=== PATIENT | male | born 1950 | race Caucasian/White ===

== ENCOUNTER 2022-04-24 08:33 | Outpatient (CLI) | payer MEDICARE, OTHER, SELFPAY ==
[2022-04-24 17:57] LABS: Cholesterol* 147 mg/dL (90-199); HDL Cholesterol* 26 mg/dL (>=40); LDL Cholesterol Calculated 56 mg/dL (<100); Triglycerides* 326 mg/dL (40-149)
== END 2022-04-24 08:34 | disposition home or self-care (01) ==
PROVIDERS: PCP Family Medicine; Visit Provider Family Medicine
DX: I71.9 Aortic aneurysm of unspecified site, without rupture (principal); I10 Essential (primary) hypertension
CPT/HCPCS: 80061

== ENCOUNTER 2023-03-06 10:31 | Outpatient (CLI) | payer MEDICARE, OTHER, SELFPAY ==
--- NOTE | 2023-03-06 11:00 | CRLHL7_ITS ---
For Patients: As a result of the Century Cures Act, medical imaging exams and procedure reports are released immediately into your electronic medical record. You may view this report before your referring provider. If you have questions, please contact your health care provider. Indication: CERVICALGIA Technique: Postcontrast CT neck. 100 cc Isovue 370 intravenous contrast. Please note that all CT scans at this facility use dose modulation, iterative reconstruction, and/or weight-based dosing when appropriate to reduce radiation dose to as low as reasonably achievable. Comparison: None Findings: No cervical adenopathy or soft tissue mass. Salivary glands are normal. Normal epiglottis, vallecula and piriform sinuses. No fracture is present. Near complete bridging osteophyte formation at C5-6. Anterior spurring also at C6-7 and prominent spurring located at T1-2. Intact odontoid. Sella turcica normal. Clear visualized sinuses. Normal visualized brain parenchyma and orbits. Scarring noted in both lung apices. Thyroid normal. Impression: Discogenic spurring lower thoracic spine. No fracture. No soft tissue mass or adenopathy. Please note that all CT scans at this facility use dose modulation, iterative reconstruction, and/or weight-based dosing when appropriate to reduce radiation dose to as low as reasonably achievable. Dictated by Giovany Levy MD @ 03/06/2023 12:56:49 PM (Electronically Signed)
== END 2023-03-06 10:32 | disposition home or self-care (01) ==
LOC: CT 10:33
PROVIDERS: PCP Family Medicine; Visit Provider Otolaryngology
DX: M54.2 Cervicalgia (principal)
CPT/HCPCS: 70491; Q9967

== ENCOUNTER 2023-04-20 19:23 | Outpatient (CLI) | payer MEDICARE, OTHER, SELFPAY ==
--- NOTE | 2023-04-28 12:57 | W.PM.SLEEP ---
Sleep Study Details Details Interpreting Provider: Aleah Date of Sleep Study: 04/20/23 Sleep Study Details: STUDY TYPE:? Home unattended ? BMI:? 32.3 ORDERING PROVIDER:? Aleah INDICATION:? Concerns about sleep apnea ? SLEEP SUMMARY:? 405 minutes monitor RESPIRATORY SUMMARY:? AHI 19, supine 28.5, left lateral 18.4, right lateral 16.9 Low oxygen 66 7.1% of study oxygen less than 90% Snoring 16.6% PERIODIC LIMB MOVEMENTS OF SLEEP:? Not recorded during home study CARDIAC:? Range 52-96, mean 63.7 beats per minute IMPRESSION:? Moderate obstructive sleep apnea with supine position dependency and significant desaturations RECOMMENDATION: AutoSet CPAP pressure 4-17.
== END 2023-04-20 19:24 | disposition home or self-care (01) ==
LOC: SLEEP 19:24
PROVIDERS: PCP Family Medicine; Visit Provider Otolaryngology
DX: G47.33 Obstructive sleep apnea (adult) (pediatric) (principal)
CPT/HCPCS: 95806

== ENCOUNTER 2024-01-11 10:51 | Outpatient (CLI) | payer MEDICARE, OTHER, SELFPAY ==
--- OUTSIDE RECORDS SUMMARY | 2024-01-11 10:54 | XMS_ITS | Continuity of Care Document ---
Author Name [facility] Organization [facility] Care Team Providers Care Online Marketing Specialist Name Role Phone [facility] Unavailable Unavailable Problems Combined list of problems from Department of Defense and Veterans Affairs facilities. It does not include entries that were removed or entered in error. Problem Status Onset Date Problem Type Date of Resolution Comments Source Abdominal aortic aneurysm 3.0 to 5.5 centimeters in male Active Condition Aug 07, 2020 Entered By: JEFFERSON KOCH Comment: [place] 08/06/20: Stable repeat 1 year (ordered by Ms Hernandez). N. [facility] Chronic kidney disease stage 3A Active Condition N. [facility] Chronic low back pain Active Condition N. [facility] Coronary atherosclerosis Active Condition N. [facility] Ex-cigarette smoker Active Condition [facility] Exposure to potentially hazardous substance Active Condition [facility] Exposure to potentially hazardous substance ([facility] [id number]) Active Condition Nov 26 4 Entered By: JAIME ROTHMAN Comment: Entered automatically through [facility] Problem List documentation program [facility] Hearing loss Active Condition [facility] Hematuria Active Condition [facility] Herbicide poisoning Active Condition [facility] History of heartburn Active Condition [facility] Hyperlipidemia Active Condition [facility] Hypertension Active Condition [facility] Multiple nodules of lung Active Condition Aug 07, 2020 Entered By: JEFFERSON KOCH Comment: LDCT 08/06/20: Rec repeat in one year (ordered). [facility] Obesity Active Condition [facility] Osteoarthritis Active Condition [facility] Tobacco user Active Condition Jul 05, 2020 Entered By: JEFFERSON KOCH Comment: Quit ~ 2013. [facility] Vitamin D deficiency Active Condition [facility] Diarrhea (SNOMED CT [id number]) Inactive Condition 07/12/2014 [facility] Knee pain Inactive Condition 07/01/2018 [facility] Lactose intolerance Inactive Condition 07/01/2018 [facility] Seborrheic dermatitis Inactive Condition 07/01/2018 [facility] Tinnitus Inactive Condition 07/01/2018 [facility] Diagnosis: ICD-10-CM G47.33 Obstructive sleep apnea (adult) (pediatric) Active Diagnosis [facility] Diagnosis: ICD-10-CM N40.1 Benign prostatic hyperplasia with lower urinary tract symp Active Diagnosis N. [facility] Diagnosis: ICD-10-CM R31.0 Gross hematuria Active Diagnosis N. 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 [facility] Diagnosis: ICD-10-CM R05.1 Acute cough Active Diagnosis N. [facility] Medications Combined list of outpatient medications from Department of Defense and [facility] Affairs facilities.Medications provided include 1) outpatient medications from the last 15 months, and 2) patient-reported medications. Medication Details Route Status Patient Instructions Prescription Expires Prescription Number Last Dispense Date Ordering Provider Order Date Order Qty Source ACETAMINOPH EN 325MG TAB TAKE TWO TABLETS BY MOUTH HS PRN ORAL ACTIVE HLAING,[place] 2014 [facility] ACETAMINOPH EN 500MG TAB TAKE TWO TABLETS BY MOUTH EVERY 6 HOURS NEEDED FOR PAIN ORALLY 03/28/2023 [id number] 3 Beny DOUGLAS 2022 40 [facility] AMLODIPINE BESYLATE 2.5MG TAB TAKE ONE TABLET BY MOUTH EVERY 24 HOURS FOR BLOOD PRESSURE ORAL ACTIVE 07/13/2024 [id number] 4 Carrie KUMAR 2022 90 [facility] AMLODIPINE TAB TAKE BY MOUTH ORALLY ACTIVE BRENNA RIOS 2022 [facility] ASPIRIN 81MG TAB,CHEWABL E CHEW ONE TABLET BY MOUTH ORALLY ACTIVE BRENNA RIOS 2022 [facility] ASPIRIN 81MG TAB,EC TAKE ONE TABLET BY MOUTH ONE TIME EACH DAY ORAL ACTIVE CIELO SANTORO [place] 2017 N. [facility] ATORVASTATI N [place] 40MG TAB TAKE ONE TABLET BY MOUTH EVERY DAY ORALLY ACTIVE BRENNA RIOS 2022 [facility] ATORVASTATI N [place] 80MG TAB TAKE ONE-HALF TABLET BY MOUTH ONE TIME EACH DAY FOR CHOLESTE ROL ORAL ACTIVE 07/13/2024 [id number] 4 Carrie KUMAR 2022 45 [facility] CARBOXYMETH YLCELLULOSE NA 0.25% SOLN,OPH INSTILL 2 DROPS IN BOTH EYES TWICE A DAY NEEDED FOR EYE DRYNESS AND IRRITATI ON BOTH EYES ACTIVE 04/08/2024 [id number] 3 Beny DOUGLAS 2022 15 [facility] CHOLECALCIF FRANCINE 25MCG (1,000UNIT) TAB TAKE TWO TABLETS BY MOUTH ORALLY ACTIVE BRENNA RIOS 2022 [facility] CYANOCOBALA MIN TAB TAKE ACTIVE BRENNA RIOS 2022 [facility] DEXAMETHASO NE NA PHOSPHATE 0.1% SOLN,OPH INSTILL 2 DROPS IN OPERATIV E EYE EVERY 6 HOURS FOR INFLAMMA TION OPERAT CHELA EYE 03/28/2023 [id number] 3 Beny DOUGLAS 2022 5 [facility] DICLOFENAC NA 1% GEL,TOP APPLY 4 GRAMS TOPICALL Y FOUR TIMES A DAY NEEDED TO KNEES FOR PAIN (MEASURE DOSE USING SUPPLIED DOSING CARD) TOPICA L ACTIVE 09/03/2024 [id number] 4 Carrie KUMAR 2023 200 [facility] DICLOFENAC NA 1% GEL,TOP APPLY 4 GRAMS TOPICALL Y FOUR TIMES A DAY NEEDED TO KNEES FOR PAIN (MEASURE DOSE USING SUPPLIED DOSING CARD) TOPICA L DISCONT INUED 07/11/2023 [id number] CESIA ANDREWS AMA 2021 200 [facility] ERYTHROMYCI N 0.5% OINT,OPH APPLY A THIN LAYER TO INCISION (S) TO OPERATIV E EYE FOUR TIMES A DAY FOR WOUND CARE OPERAT CHELA EYE ACTIVE 02/27/2024 [id number] 3 Beny DOUGLAS 2022 4 [facility] FAMOTIDINE 20MG TAB TAKE ONE TABLET BY MOUTH TWICE A DAY ORAL ACTIVE FIDE ROSEN 2018 N. [facility] FAMOTIDINE TAB TAKE ACTIVE BRENNA RIOS 2022 [facility] FINASTERIDE 5MG TAB TAKE ONE TABLET BY MOUTH ONE TIME EACH DAY FOR PROSTATE ORAL ACTIVE 09/11/2024 [id number] 4 Masoud RICHARDSON 2023 30 N. [facility] FISH OIL 1000MG (500MG DHA/EPA) CAP,ORAL TAKE 2 CAPSULES BY MOUTH TWICE A DAY ORAL ACTIVE Carrie KUMAR 2022 [facility] HYDROCHLORO THIAZIDE 25MG/LOSART AN POTASSIUM 100MG TAB TAKE 1 TABLET BY MOUTH ONE TIME EACH DAY FOR HIGH BLOOD PRESSURE ORAL DISCONT INUED 02/24/2024 [id number] 3 SAADIA COE 2022 60 [facility] HYDROCHLORO THIAZIDE 25MG/LOSART AN POTASSIUM 100MG TAB TAKE 1 TABLET BY MOUTH ONE TIME EACH DAY FOR HIGH BLOOD PRESSURE ORAL DISCONT INUED 11/22/2023 [id number] 3 YANNI TRIMBLE 2022 60 N. [facility] MARINE LIPID (FISH OIL) CAP,ORAL TAKE BY MOUTH ORALLY ACTIVE BRENNA RIOS 2022 [facility] METOPROLOL TARTRATE 25MG TAB TAKE ONE TABLET BY MOUTH EVERY 12 HOURS FOR BLOOD PRESSURE ORAL ACTIVE 07/13/2024 [id number] 4 Carrie KUMAR 2022 180 [facility] METOPROLOL TARTRATE TAB TAKE BY MOUTH TWICE A DAY ORALLY ACTIVE BRENNA RIOS 2022 [facility] METRONIDAZO LE 0.75% CREAM,TOP APPLY TOPICALL Y TOPICA LLY ACTIVE BRENNA RIOS 2022 [facility] NIACIN TAB TAKE ACTIVE Enrique RIOS 2022 [facility] NITROGLYCER IN TAB,SUBLING UAL DISSOLVE UNDER THE TONGUE EVERY 5 MINUTES FOR UP TO 3 DOSES IF NEEDED NEEDED SUBLIN GUAL ACTIVE BRENNA RIOS 2022 [facility] NON VA MED NOT LISTED MISCELLANEO US USE ACTIVE BRENNA RIOS 2022 [facility] OXYCODONE HCL 5MG TAB TAKE ONE TABLET BY MOUTH EVERY 4 HOURS NEEDED FOR PAIN ORALLY 03/28/2023 [id number] 3 Beny DOUGLAS 2022 30 [facility] POLYVINYL ALCOHOL 1.4% SOLN,OPH INSTILL 2 DROPS IN BOTH EYES EVERY HOUR NEEDED FOR EYE IRRITATI ON BOTH EYES ACTIVE 02/27/2024 [id number] 3 Beny DOUGLAS 2022 15 [facility] PROBIOTIC [NON-VA] CAP,ORAL TAKE ACTIVE CIELO SANTORO 2014 [facility] TAMSULOSIN HCL 0.4MG CAP TAKE ONE CAPSULE BY MOUTH ONE TIME EACH DAY FOR URINATIO N ORAL ACTIVE 09/11/2024 [id number] 4 Masoud RICHARDSON 2023 30 N. [facility] TRIAMCINOLO NE 0.1% OINT,TOP APPLY TOPICALL Y TOPICA LLY ACTIVE BLANCABRENNA BARAJAS DELGADO 2022 [facility] Allergies, Adverse Reactions, Alerts Combined list of allergies from Department of Defense and Veterans Affairs facilities. It does not include entries that were removed or entered in error. Substance Category Reaction Severity Reaction type Status Date Reported Comments Source LISINOPRIL Propensity to adverse reactions to drug (finding) Cough active 3 [facility] Immunizations Combined list of available immunizations from the Department of Defense and Veterans Affairs facilities. Immunization Series Date Given Administered By Site Reaction Lot Number CVX Code Drug Work Checker Status Comments Source INFLUENZA, UNSPECIFIED FORMULATION 2022 88 complet ed [facility] INFLUENZA, UNSPECIFIED FORMULATION 2021 88 complet ed [facility] COVID-19 (PFIZER), MRNA, LNP-S, PF, 30 MCG/0.3 ML DOSE, FABY-SUCROSE (AGES 12+ YEARS) 4 2021 217 complet ed [facility] COVID-19 (PFIZER), MRNA, LNP-S, PF, 30 MCG/0.3 ML DOSE 3 2020 208 complet ed [facility] INFLUENZA, UNSPECIFIED FORMULATION 2020 88 complet ed [facility] ZOSTER RECOMBINANT 2020 187 complet ed [facility] COVID-19 (PFIZER), MRNA, LNP-S, PF, 30 MCG/0.3 ML DOSE 2 2020 208 complet ed PFR; [id number]; 1 [facility] COVID-19 (PFIZER), MRNA, LNP-S, PF, 30 MCG/0.3 ML DOSE 1 2020 208 complet ed PFR; [id number]; 1 [facility] TDAP 2019 115 complet ed [facility] ZOSTER RECOMBINANT 2019 187 complet ed [facility] INFLUENZA, UNSPECIFIED FORMULATION 2019 88 complet ed [facility] INFLUENZA, INJECTABLE, QUADRIVALENT, PRESERVATIVE FREE 2017 150 complet ed [facility] INFLUENZA, INJECTABLE, QUADRIVALENT, PRESERVATIVE FREE 2016 150 complet ed [facility] INFLUENZA, SEASONAL, INJECTABLE, PRESERVATIVE FREE 2015 140 complet ed [facility] INFLUENZA, SEASONAL, INJECTABLE, PRESERVATIVE FREE 2014 140 complet ed [facility] PNEUMOCOCCAL CONJUGATE PCV 13 2014 133 complet ed [facility] FLU,3 YRS (HISTORICAL) 2013 88 complet ed [facility] Varicella Zoster (HISTORICAL) 2013 complet ed [facility] PNEUMOCOCCAL, UNSPECIFIED FORMULATION 2012 109 complet ed [facility] INFLUENZA, UNSPECIFIED FORMULATION 2012 88 complet ed [facility] INFLUENZA, UNSPECIFIED FORMULATION 2011 88 complet ed [facility] TD(ADULT) UNSPECIFIED FORMULATION 2009 139 complet ed [facility] Results Combined list of recent chemistry, hematology and other laboratory results from Department of Defense and Veterans Affairs, ranging from 15 months to all on record, depending upon the facility. Order Name Results Value Reference Range Date Interpretation Specimen Comments Source CREATINI NE(with eGFR) CREATININE [MASS/VOLU ME] IN SERUM OR PLASMA 1.2 0.5 - 1.2 08/06 Specimen Type: PLASMA Comment: eGFR calculated using the 2020 CKD-EPI Creatinine equation: eGFR and Chronic Kidney Disease (CKD) Stages: >=90 ml/min Stage 1 - None or Slight CKD 89-60 ml/min Stage 2 - Mild CKD 45-59 ml/min Stage 3a - Moderate CKD 30-44 ml/min Stage 3B - Moderate CKD 29-15 ml/min Stage 4 - Severe CKD <15 ml/min Stage 5 - End Stage CKD Reference: [email or web address] org/ Ordering Provider: KLARISSA KUMAR Report Released Date/Time: Jul 21, 2023 01:47 PM Reporting Lab: [facility] [address] [facility] [address] Performing Lab: [facility] [address] [facility] [phone] [facility] CREATINI NE(with eGFR) GLOMERULAR FILTRATION RATE/1.73 SQ M.PREDICTE D [VOLUME RATE/AREA] IN SERUM, PLASMA OR BLOOD BY CREATININE -BASED FORMULA (CKD-EPI 2020) 63 08/06 Specimen Type: PLASMA Comment: eGFR calculated using the 2020 CKD-EPI Creatinine equation: eGFR and Chronic Kidney Disease (CKD) Stages: >=90 ml/min Stage 1 - None or Slight CKD 89-60 ml/min Stage 2 - Mild CKD 45-59 ml/min Stage 3a - Moderate CKD 30-44 ml/min Stage 3B - Moderate CKD 29-15 ml/min Stage 4 - Severe CKD <15 ml/min Stage 5 - End Stage CKD Reference: [email or web address] org/ Ordering Provider: KLARISSA KUMAR Report Released Date/Time: Jul 21, 2023 01:47 PM Reporting Lab: [facility] [address] [facility] [address] Performing Lab: [facility] [address] [facility] [address] [facility] B12 COBALAMIN (VITAMIN B12) [MASS/VOLU ME] IN SERUM OR PLASMA 836 240 - 900 07/08 Specimen Type: SERUM No comment entered. Ordering Provider: TETE PACHECO Report Released Date/Time: Jun 23, 2023 02:55 PM Reporting Lab: [facility] [address] [facility] [address] Performing Lab: [facility] [address] [facility] [address] [facility] COMPREHE NSIVE METABOLI C PANEL UREA NITROGEN [MASS/VOLU ME] IN SERUM OR PLASMA 13 9 - 20 07/08 Specimen Type: PLASMA Comment: eGFR calculated using the 2020 CKD-EPI Creatinine equation: eGFR and Chronic Kidney Disease (CKD) Stages: >=90 ml/min Stage 1 - None or Slight CKD 89-60 ml/min Stage 2 - Mild CKD 45-59 ml/min Stage 3a - Moderate CKD 30-44 ml/min Stage 3B - Moderate CKD 29-15 ml/min Stage 4 - Severe CKD <15 ml/min Stage 5 - End Stage CKD Reference: [email or web address]. org/ Direct LDL not performed when Triglycerid es </= 400 mg/dL. Ordering Provider: CESIA ANDREWS Report Released Date/Time: Jul 10, 2022 10:59 AM Reporting Lab: [facility] [address] Performing Lab: [facility] [address] [place] [phone] [facility] COMPREHE NSIVE METABOLI C PANEL SODIUM [MOLES/VOL UME] IN SERUM OR PLASMA 139 135 - 145 07/08 Specimen Type: PLASMA Comment: eGFR calculated using the 2020 CKD-EPI Creatinine equation: eGFR and Chronic Kidney Disease (CKD) Stages: >=90 ml/min Stage 1 - None or Slight CKD 89-60 ml/min Stage 2 - Mild CKD 45-59 ml/min Stage 3a - Moderate CKD 30-44 ml/min Stage 3B - Moderate CKD 29-15 ml/min Stage 4 - Severe CKD <15 ml/min Stage 5 - End Stage CKD Reference: [email or web address] org/ Direct LDL not performed when Triglycerid es </= 400 mg/dL. Ordering Provider: CESIA ANDREWS Report Released Date/Time: Jul 10, 2022 10:59 AM Reporting Lab: [facility] [address] [place] [address] Performing Lab: [facility] [address] [place] [phone] [facility] COMPREHE NSIVE METABOLI C PANEL CHLORIDE [MOLES/VOL UME] IN SERUM OR PLASMA 105 98 - 108 07/08 Specimen Type: PLASMA Comment: eGFR calculated using the 2020 CKD-EPI Creatinine equation: eGFR and Chronic Kidney Disease (CKD) Stages: >=90 ml/min Stage 1 - None or Slight CKD 89-60 ml/min Stage 2 - Mild CKD 45-59 ml/min Stage 3a - Moderate CKD 30-44 ml/min Stage 3B - Moderate CKD 29-15 ml/min Stage 4 - Severe CKD <15 ml/min Stage 5 - End Stage CKD Reference: www.[email or web address]. org/ Direct LDL not performed when Triglycerid es </= 400 mg/dL. Ordering Provider: CESIA ANDREWS Report Released Date/Time: Jul 10, 2022 10:59 AM Reporting Lab: [facility] [address] [facility] [address] Performing Lab: [facility] [address] [facility] [address] [facility] COMPREHE NSIVE METABOLI C PANEL CARBON DIOXIDE, TOTAL [MOLES/VOL UME] IN SERUM OR PLASMA 25 23 - 32 07/08 Specimen Type: PLASMA Comment: eGFR calculated using the 2020 CKD-EPI Creatinine equation: eGFR and Chronic Kidney Disease (CKD) Stages: >=90 ml/min Stage 1 - None or Slight CKD 89-60 ml/min Stage 2 - Mild CKD 45-59 ml/min Stage 3a - Moderate CKD 30-44 ml/min Stage 3B - Moderate CKD 29-15 ml/min Stage 4 - Severe CKD <15 ml/min Stage 5 - End Stage CKD Reference: [email or web address] org/ Direct LDL not performed when Triglycerid es </= 400 mg/dL. Ordering Provider: CESIA ANDREWS Report Released Date/Time: Jul 10, 2022 10:59 AM Reporting Lab: [facility] [address] [facility] [address] Performing Lab: [facility] [address] [facility] [phone] [place] [address] COMPREHE NSIVE METABOLI C PANEL PROTEIN [MASS/VOLU ME] IN SERUM OR PLASMA 7.4 6.0 - 8.2 07/08 Specimen Type: PLASMA Comment: eGFR calculated using the 2020 CKD-EPI Creatinine equation: eGFR and Chronic Kidney Disease (CKD) Stages: >=90 ml/min Stage 1 - None or Slight CKD 89-60 ml/min Stage 2 - Mild CKD 45-59 ml/min Stage 3a - Moderate CKD 30-44 ml/min Stage 3B - Moderate CKD 29-15 ml/min Stage 4 - Severe CKD <15 ml/min Stage 5 - End Stage CKD Reference: [email or web address] org/ Direct LDL not performed when Triglycerid es </= 400 mg/dL. Ordering Provider: CESIA ANDREWS Report Released Date/Time: Jul 10, 2022 10:59 AM Reporting Lab: [facility] [address] [facility] [address] Performing Lab: [facility] [address] [facility] [address] [facility] COMPREHE NSIVE METABOLI C PANEL ALBUMIN [MASS/VOLU ME] IN SERUM OR PLASMA 4.5 3.5 - 5.0 07/08 Specimen Type: PLASMA Comment: eGFR calculated using the 2020 CKD-EPI Creatinine equation: eGFR and Chronic Kidney Disease (CKD) Stages: >=90 ml/min Stage 1 - None or Slight CKD 89-60 ml/min Stage 2 - Mild CKD 45-59 ml/min Stage 3a - Moderate CKD 30-44 ml/min Stage 3B - Moderate CKD 29-15 ml/min Stage 4 - Severe CKD <15 ml/min Stage 5 - End Stage CKD Reference: [email or web address]. [email or web address] Direct LDL not performed when Triglycerid es </= 400 mg/dL. Ordering Provider: CESIA ANDREWS Report Released Date/Time: Jul 10, 2022 10:59 AM Reporting Lab: [facility] [address] [facility] [address] Performing Lab: [facility] [address] [facility] [address] [facility] COMPREHE NSIVE METABOLI C PANEL BILIRUBIN. TOTAL [MASS/VOLU ME] IN SERUM OR PLASMA 0.6 0.0 - 1.3 07/08 Specimen Type: PLASMA Comment: eGFR calculated using the 2020 CKD-EPI Creatinine equation: eGFR and Chronic Kidney Disease (CKD) Stages: >=90 ml/min Stage 1 - None or Slight CKD 89-60 ml/min Stage 2 - Mild CKD 45-59 ml/min Stage 3a - Moderate CKD 30-44 ml/min Stage 3B - Moderate CKD 29-15 ml/min Stage 4 - Severe CKD <15 ml/min Stage 5 - End Stage CKD Reference: [email or web address] [email or web address] Direct LDL not performed when Triglycerid es </= 400 mg/dL. Ordering Provider: CESIA ANDREWS Report Released Date/Time: Jul 10, 2022 10:59 AM Reporting Lab: [facility] [address] [facility] [address] Performing Lab: [facility] [address] [facility] [address] [facility] COMPREHE NSIVE METABOLI C PANEL ALKALINE PHOSPHATAS E [ENZYMATIC ACTIVITY/V OLUME] IN SERUM OR PLASMA 115 0 - 125 07/08 Specimen Type: PLASMA Comment: eGFR calculated using the 2020 CKD-EPI Creatinine equation: eGFR and Chronic Kidney Disease (CKD) Stages: >=90 ml/min Stage 1 - None or Slight CKD 89-60 ml/min Stage 2 - Mild CKD 45-59 ml/min Stage 3a - Moderate CKD 30-44 ml/min Stage 3B - Moderate CKD 29-15 ml/min Stage 4 - Severe CKD <15 ml/min Stage 5 - End Stage CKD Reference: [email or web address] org/ Direct LDL not performed when Triglycerid es </= 400 mg/dL. Ordering Provider: CESIA ANDREWS Report Released Date/Time: Jul 10, 2022 10:59 AM Reporting Lab: [facility] [address] [facility] [place] [phone] Performing Lab: [facility] [address] [facility] [address] [facility] COMPREHE NSIVE METABOLI C PANEL ASPARTATE AMINOTRANS FERASE [ENZYMATIC ACTIVITY/V OLUME] IN SERUM OR PLASMA 34 0 - 45 07/08 Specimen Type: PLASMA Comment: eGFR calculated using the 2020 CKD-EPI Creatinine equation: eGFR and Chronic Kidney Disease (CKD) Stages: >=90 ml/min Stage 1 - None or Slight CKD 89-60 ml/min Stage 2 - Mild CKD 45-59 ml/min Stage 3a - Moderate CKD 30-44 ml/min Stage 3B - Moderate CKD 29-15 ml/min Stage 4 - Severe CKD <15 ml/min Stage 5 - End Stage CKD Reference: [email or web address] [email or web address] Direct LDL not performed when Triglycerid es </= 400 mg/dL. Ordering Provider: CESIA ANDREWS Report Released Date/Time: Jul 10, 2022 10:59 AM Reporting Lab: [facility] [address] [facility] [place] [phone] Performing Lab: [facility] [address] [facility] [address] [facility] COMPREHE NSIVE METABOLI C PANEL ALANINE AMINOTRANS FERASE [ENZYMATIC ACTIVITY/V OLUME] IN SERUM OR PLASMA BY NO ADDITION OF P-5'-P 36 0 - 40 07/08 Specimen Type: PLASMA Comment: eGFR calculated using the 2020 CKD-EPI Creatinine equation: eGFR and Chronic Kidney Disease (CKD) Stages: >=90 ml/min Stage 1 - None or Slight CKD 89-60 ml/min Stage 2 - Mild CKD 45-59 ml/min Stage 3a - Moderate CKD 30-44 ml/min Stage 3B - Moderate CKD 29-15 ml/min Stage 4 - Severe CKD <15 ml/min Stage 5 - End Stage CKD Reference: [email or web address] [email or web address] Direct LDL not performed when Triglycerid es </= 400 mg/dL. Ordering Provider: CESIA ANDREWS Report Released Date/Time: Jul 10, 2022 10:59 AM Reporting Lab: [facility] [address] [facility] [address] Performing Lab: [facility] [address] [facility] [address] [facility] COMPREHE NSIVE METABOLI C PANEL ANION GAP 3 IN SERUM OR PLASMA 9 - 07/08 Specimen Type: PLASMA Comment: eGFR calculated using the 2020 CKD-EPI Creatinine equation: eGFR and Chronic Kidney Disease (CKD) Stages: >=90 ml/min Stage 1 - None or Slight CKD 89-60 ml/min Stage 2 - Mild CKD 45-59 ml/min Stage 3a - Moderate CKD 30-44 ml/min Stage 3B - Moderate CKD 29-15 ml/min Stage 4 - Severe CKD <15 ml/min Stage 5 - End Stage CKD Reference: [email or web address] Direct LDL not performed when Triglycerid es </= 400 mg/dL. Ordering Provider: CESIA ANDREWS Report Released Date/Time: Jul 10, 2022 10:59 AM Reporting Lab: [facility] [address] [facility] [address] Performing Lab: [facility] [address] [facility] [address] [facility] COMPREHE NSIVE METABOLI C PANEL POTASSIUM [MOLES/VOL UME] IN SERUM OR PLASMA 4.1 3.5 - 5.0 07/08 Specimen Type: PLASMA Comment: eGFR calculated using the 2020 CKD-EPI Creatinine equation: eGFR and Chronic Kidney Disease (CKD) Stages: >=90 ml/min Stage 1 - None or Slight CKD 89-60 ml/min Stage 2 - Mild CKD 45-59 ml/min Stage 3a - Moderate CKD 30-44 ml/min Stage 3B - Moderate CKD 29-15 ml/min Stage 4 - Severe CKD <15 ml/min Stage 5 - End Stage CKD Reference: www.kidney. org/ Direct LDL not performed when Triglycerid es </= 400 mg/dL. Ordering Provider: CESIA ANDREWS Report Released Date/Time: Jul 10, 2022 10:59 AM Reporting Lab: [facility] [address] [place] [address] Performing Lab: [facility] [address] [place] [address] [facility] COMPREHE NSIVE METABOLI C PANEL CALCIUM [MASS/VOLU ME] IN SERUM OR PLASMA 9.7 8.4 - 10.5 07/08 Specimen Type: PLASMA Comment: eGFR calculated using the 2020 CKD-EPI Creatinine equation: eGFR and Chronic Kidney Disease (CKD) Stages: >=90 ml/min Stage 1 - None or Slight CKD 89-60 ml/min Stage 2 - Mild CKD 45-59 ml/min Stage 3a - Moderate CKD 30-44 ml/min Stage 3B - Moderate CKD 29-15 ml/min Stage 4 - Severe CKD <15 ml/min Stage 5 - End Stage CKD Reference: www.kidney. org/ Direct LDL not performed when Triglycerid es </= 400 mg/dL. Ordering Provider: CESIA ANDREWS Report Released Date/Time: Jul 10, 2022 10:59 AM Reporting Lab: [facility] [address] [place] [address] Performing Lab: [facility] [address] [place] [address] [facility] COMPREHE NSIVE METABOLI C PANEL CREATININE [MASS/VOLU ME] IN SERUM OR PLASMA 1.2 0.5 - 1.2 07/08 Specimen Type: PLASMA Comment: eGFR calculated using the 2020 CKD-EPI Creatinine equation: eGFR and Chronic Kidney Disease (CKD) Stages: >=90 ml/min Stage 1 - None or Slight CKD 89-60 ml/min Stage 2 - Mild CKD 45-59 ml/min Stage 3a - Moderate CKD 30-44 ml/min Stage 3B - Moderate CKD 29-15 ml/min Stage 4 - Severe CKD <15 ml/min Stage 5 - End Stage CKD Reference: www.kidney. org/ Direct LDL not performed when Triglycerid es </= 400 mg/dL. Ordering Provider: CESIA ANDREWS Report Released Date/Time: Jul 10, 2022 10:59 AM Reporting Lab: [facility] [address] [facility] [address] Performing Lab: [facility] [address] [place] [phone] [facility] COMPREHE NSIVE METABOLI C PANEL GLUCOSE [MASS/VOLU ME] IN SERUM OR PLASMA 121 65 - 99 07/08 H Specimen Type: PLASMA Comment: eGFR calculated using the 2020 CKD-EPI Creatinine equation: eGFR and Chronic Kidney Disease (CKD) Stages: >=90 ml/min Stage 1 - None or Slight CKD 89-60 ml/min Stage 2 - Mild CKD 45-59 ml/min Stage 3a - Moderate CKD 30-44 ml/min Stage 3B - Moderate CKD 29-15 ml/min Stage 4 - Severe CKD <15 ml/min Stage 5 - End Stage CKD Reference: www.kidney. org/ Direct LDL not performed when Triglycerid es </= 400 mg/dL. Ordering Provider: CESIA ANDREWS Report Released Date/Time: Jul 10, 2022 10:59 AM Reporting Lab: [facility] [address] [place] [address] Performing Lab: [facility] [address] [place] [phone] [facility] COMPREHE NSIVE METABOLI C PANEL GLOMERULAR FILTRATION RATE/1.73 SQ M.PREDICTE D [VOLUME RATE/AREA] IN SERUM, PLASMA OR BLOOD BY CREATININE -BASED FORMULA (CKD-EPI 2020) 61 07/08 Specimen Type: PLASMA Comment: eGFR calculated using the 2020 CKD-EPI Creatinine equation: eGFR and Chronic Kidney Disease (CKD) Stages: >=90 ml/min Stage 1 - None or Slight CKD 89-60 ml/min Stage 2 - Mild CKD 45-59 ml/min Stage 3a - Moderate CKD 30-44 ml/min Stage 3B - Moderate CKD 29-15 ml/min Stage 4 - Severe CKD <15 ml/min Stage 5 - End Stage CKD Reference: www.kidney. org/ Direct LDL not performed when Triglycerid es </= 400 mg/dL. Ordering Provider: CESIA ANDREWS Report Released Date/Time: Jul 10, 2022 10:59 AM Reporting Lab: [facility] [address] [facility] [address] Performing Lab: [facility] [address] [facility] [address] [facility] HEMOGLOB IN %A1C PROFILE HEMOGLOBIN A1C/HEMOGL OBIN.TOTAL IN BLOOD 5.7 07/08 Specimen Type: BLOOD Comment: Values obtained from A1C measurement s can vary. For typical A1C assays, a reported value of 7.0 could actually be between 6.72and 7.28 if measured by a reference method. A reported value of 9.0 could actually be between 8.73 and 9.27. Ref: http://www. ngsp.org/[place] Pdata.asp Ordering Provider: TETE PACHECO Report Released Date/Time: Jun 23, 2023 02:55 PM Reporting Lab: [facility] [address] [facility] [address] Performing Lab: [facility] [address] [facility] [address] [facility] LIPID PANEL CHOLESTERO L [MASS/VOLU ME] IN SERUM OR PLASMA 131 0 - 199 07/08 Specimen Type: PLASMA Comment: eGFR calculated using the 2020 CKD-EPI Creatinine equation: eGFR and Chronic Kidney Disease (CKD) Stages: >=90 ml/min Stage 1 - None or Slight CKD 89-60 ml/min Stage 2 - Mild CKD 45-59 ml/min Stage 3a - Moderate CKD 30-44 ml/min Stage 3B - Moderate CKD 29-15 ml/min Stage 4 - Severe CKD <15 ml/min Stage 5 - End Stage CKD Reference: www.kidney. org/ Direct LDL not performed when Triglycerid es </= 400 mg/dL. Ordering Provider: CESIA ANDREWS Report Released Date/Time: Jul 10, 2022 10:59 AM Reporting Lab: [facility] [address] [facility] [address] Performing Lab: [facility] [address] [facility] [address] [facility] LIPID PANEL TRIGLYCERI DE [MASS/VOLU ME] IN SERUM OR PLASMA 294 0 - 149 07/08 H Specimen Type: PLASMA Comment: eGFR calculated using the 2020 CKD-EPI Creatinine equation: eGFR and Chronic Kidney Disease (CKD) Stages: >=90 ml/min Stage 1 - None or Slight CKD 89-60 ml/min Stage 2 - Mild CKD 45-59 ml/min Stage 3a - Moderate CKD 30-44 ml/min Stage 3B - Moderate CKD 29-15 ml/min Stage 4 - Severe CKD <15 ml/min Stage 5 - End Stage CKD Reference: www.kidney. org/ Direct LDL not performed when Triglycerid es </= 400 mg/dL. Ordering Provider: CESIA ANDREWS Report Released Date/Time: Jul 10, 2022 10:59 AM Reporting Lab: [facility] [address] [facility] [address] Performing Lab: [facility] [address] [facility] [address] [facility] LIPID PANEL CHOLESTERO L IN LDL [MASS/VOLU ME] IN SERUM OR PLASMA BY CALCULATIO N 40 <129 - 129 07/08 Specimen Type: PLASMA Comment: eGFR calculated using the 2020 CKD-EPI Creatinine equation: eGFR and Chronic Kidney Disease (CKD) Stages: >=90 ml/min Stage 1 - None or Slight CKD 89-60 ml/min Stage 2 - Mild CKD 45-59 ml/min Stage 3a - Moderate CKD 30-44 ml/min Stage 3B - Moderate CKD 29-15 ml/min Stage 4 - Severe CKD <15 ml/min Stage 5 - End Stage CKD Reference: www.kidney. org/ Direct LDL not performed when Triglycerid es </= 400 mg/dL. Ordering Provider: CESIA ANDREWS Report Released Date/Time: Jul 10, 2022 10:59 AM Reporting Lab: [facility] [address] [facility] [address] Performing Lab: [facility] [address] [facility] [address] [facility] LIPID PANEL CHOLESTERO L IN HDL [MASS/VOLU ME] IN SERUM OR PLASMA 32 40 07/08 L Specimen Type: PLASMA Comment: eGFR calculated using the 2020 CKD-EPI Creatinine equation: eGFR and Chronic Kidney Disease (CKD) Stages: >=90 ml/min Stage 1 - None or Slight CKD 89-60 ml/min Stage 2 - Mild CKD 45-59 ml/min Stage 3a - Moderate CKD 30-44 ml/min Stage 3B - Moderate CKD 29-15 ml/min Stage 4 - Severe CKD <15 ml/min Stage 5 - End Stage CKD Reference: www.kidney. org/ Direct LDL not performed when Triglycerid es </= 400 mg/dL. Ordering Provider: CESIA ANDREWS Report Released Date/Time: Jul 10, 2022 10:59 AM Reporting Lab: [facility] [address] [place] [address] Performing Lab: [facility] [address] [place] [address] [facility] LIPID PANEL CHOLESTERO L IN LDL [MASS/VOLU ME] IN SERUM OR PLASMA BY DIRECT ASSAY canc <129 - 129 07/08 Specimen Type: PLASMA Comment: eGFR calculated using the 2020 CKD-EPI Creatinine equation: eGFR and Chronic Kidney Disease (CKD) Stages: >=90 ml/min Stage 1 - None or Slight CKD 89-60 ml/min Stage 2 - Mild CKD 45-59 ml/min Stage 3a - Moderate CKD 30-44 ml/min Stage 3B - Moderate CKD 29-15 ml/min Stage 4 - Severe CKD <15 ml/min Stage 5 - End Stage CKD Reference: www.kidney. org/ Direct LDL not performed when Triglycerid es </= 400 mg/dL. Ordering Provider: CESIA ANDREWS Report Released Date/Time: Jul 10, 2022 10:59 AM Reporting Lab: [facility] [address] [place] [address] Performing Lab: [facility] [address] [place] [address] [facility] MICROALB UMINURIA (ANUP) CREATININE [MASS/VOLU ME] IN URINE 67.1 07/08 Specimen Type: URINE Comment: ANUP/CR RATIO not calculated when ANUP <12.0 or U.CREAT <15 Ordering Provider: TETE PACHECO Report Released Date/Time: Jun 23, 2023 02:55 PM Reporting Lab: [facility] [address] [place] [address] Performing Lab: [facility] [address] [facility] [address] [facility] MICROALB UMINURIA (ANUP) PROTEIN [MASS/VOLU ME] IN URINE 6 <12 - 12 07/08 Specimen Type: URINE Comment: ANUP/CR RATIO not calculated when ANUP <12.0 or U.CREAT <15 Ordering Provider: TETE PACHECO Report Released Date/Time: Jun 23, 2023 02:55 PM Reporting Lab: [facility] [address] [place] [address] Performing Lab: [facility] [address] [facility] [place] [address] [facility] MICROALB UMINURIA (ANUP) MICROALBUM IN/CREATIN INE [MASS RATIO] IN URINE canc 07/08 Specimen Type: URINE Comment: ANUP/CR RATIO not calculated when ANUP <12.0 or U.CREAT <15 Ordering Provider: TETE PACHECO Report Released Date/Time: Jun 23, 2023 02:55 PM Reporting Lab: [facility] [address] [facility] [place] [address] Performing Lab: [facility] [address] [place] [address] [facility] MICROALB UMINURIA (ANUP) MICROALBUM IN [MASS/VOLU ME] IN URINE <12.0 07/08 Specimen Type: URINE Comment: ANUP/CR RATIO not calculated when ANUP <12.0 or U.CREAT <15 Ordering Provider: TETE PACHECO Report Released Date/Time: Jun 23, 2023 02:55 PM Reporting Lab: [facility] [address] [place] [address] Performing Lab: [facility] [address] [place] [address] [facility] PSA PROSTATE SPECIFIC AG [MASS/VOLU ME] IN SERUM OR PLASMA 2.960 0 - 4 07/08 Specimen Type: PLASMA Comment: eGFR calculated using the 2020 CKD-EPI Creatinine equation: eGFR and Chronic Kidney Disease (CKD) Stages: >=90 ml/min Stage 1 - None or Slight CKD 89-60 ml/min Stage 2 - Mild CKD 45-59 ml/min Stage 3a - Moderate CKD 30-44 ml/min Stage 3B - Moderate CKD 29-15 ml/min Stage 4 - Severe CKD <15 ml/min Stage 5 - End Stage CKD Reference: www.kidney. org/ Direct LDL not performed when Triglycerid es </= 400 mg/dL. Ordering Provider: TETE PACHECO Report Released Date/Time: Jun 23, 2023 03:42 PM Reporting Lab: [facility] [address] [facility] [address] Performing Lab: [facility] [address] [facility] [address] [facility] TOTAL, T D VITAMIN D+METABOLI EVERARDO [MASS/VOLU ME] IN SERUM OR PLASMA 33.4 07/08 Specimen Type: SERUM Comment: TOTAL,VIT D interpretat ion of results: Vitamin D deficiency: < or = 20 ng/mL Vitamin D insuficienc y: 21 - 29 ng/mL Preferred level: > or = 30 ng/mL Toxicity: > 100 ng/mL Test performed on [employer] chemistry analyzer (573) Ordering Provider: TETE PACHECO Report Released Date/Time: Jun 23, 2023 02:55 PM Reporting Lab: N. [place] [address] Performing Lab: [address] TSH-G,LC ,J,T THYROTROPI N [UNITS/VOL UME] IN SERUM OR PLASMA 2.200 0.27 - 4.2 07/08 Specimen Type: PLASMA Comment: eGFR calculated using the 2020 CKD-EPI Creatinine equation: eGFR and Chronic Kidney Disease (CKD) Stages: >=90 ml/min Stage 1 - None or Slight CKD 89-60 ml/min Stage 2 - Mild CKD 45-59 ml/min Stage 3a - Moderate CKD 30-44 ml/min Stage 3B - Moderate CKD 29-15 ml/min Stage 4 - Severe CKD <15 ml/min Stage 5 - End Stage CKD Reference: www.kidney. org/ Direct LDL not performed when Triglycerid es </= 400 mg/dL. Ordering Provider: CESIA ANDREWS Report Released Date/Time: Jul 10, 2022 10:59 AM Reporting Lab: [facility] [address] [place] [address] Performing Lab: [facility] [address] [place] [address] [facility] URINALYS IS COLOR OF URINE Light-Ye llow 07/08 Specimen Type: URINE No comment entered. Ordering Provider: TETE PACHECO Report Released Date/Time: Jun 23, 2023 02:55 PM Reporting Lab: [facility] [address] [place] [address] Performing Lab: [facility] [address] [place] [address] [facility] URINALYS IS SPECIFIC GRAVITY OF URINE 1.010 1.003 - 1.030 07/08 Specimen Type: URINE No comment entered. Ordering Provider: TETE PACHECO Report Released Date/Time: Jun 23, 2023 02:55 PM Reporting Lab: [facility] [address] [place] [address] Performing Lab: [facility] [address] [place] [address] [facility] URINALYS IS BILIRUBIN. TOTAL [PRESENCE] IN URINE BY TEST STRIP Negative 07/08 Specimen Type: URINE No comment entered. Ordering Provider: TETE PACHECO Report Released Date/Time: Jun 23, 2023 02:55 PM Reporting Lab: [facility] [address] [place] [address] Performing Lab: [facility] [address] [place] [address] [facility] URINALYS IS GLUCOSE [MASS/VOLU ME] IN URINE BY TEST STRIP Negative 07/08 Specimen Type: URINE No comment entered. Ordering Provider: TETE PACHECO Report Released Date/Time: Jun 23, 2023 02:55 PM Reporting Lab: [facility] [address] [place] [address] Performing Lab: [facility] [address] [place] [address] [facility] URINALYS IS GLUCOSE [MASS/VOLU ME] IN URINE BY TEST STRIP Negative 07/08 Specimen Type: URINE No comment entered. Ordering Provider: TETE PACHECO Report Released Date/Time: Jun 23, 2023 02:55 PM Reporting Lab: [facility] [address] [place] [address] Performing Lab: [facility] [address] [place] [address] [facility] URINALYS IS PROTEIN [MASS/VOLU ME] IN URINE BY TEST STRIP Negative 07/08 Specimen Type: URINE No comment entered. Ordering Provider: TETE PACHECO Report Released Date/Time: Jun 23, 2023 02:55 PM Reporting Lab: [facility] [address] [place] [address] Performing Lab: [facility] [address] [place] [address] [facility] URINALYS IS PH OF URINE BY TEST STRIP 7.0 5.0 - 9.0 07/08 Specimen Type: URINE No comment entered. Ordering Provider: TETE PACHECO Report Released Date/Time: Jun 23, 2023 02:55 PM Reporting Lab: [facility] [address] [place] [address] Performing Lab: [facility] [address] [place] [address] [facility] URINALYS IS LEUKOCYTES [#/AREA] IN URINE SEDIMENT BY MICROSCOPY HIGH POWER FIELD 2 0 - 5 07/08 Specimen Type: URINE No comment entered. Ordering Provider: TETE PACHECO Report Released Date/Time: Jun 23, 2023 02:55 PM Reporting Lab: [facility] [address] [place] [address] Performing Lab: [facility] [address] [place] [address] [facility] URINALYS IS MUCUS [PRESENCE] IN URINE SEDIMENT BY LIGHT MICROSCOPY RARE 07/08 Specimen Type: URINE No comment entered. Ordering Provider: TETE PACHECO Report Released Date/Time: Jun 23, 2023 02:55 PM Reporting Lab: [facility] [address] Performing Lab: [facility] [address] [place] [address] [facility] URINALYS IS ERYTHROCYT ES [#/AREA] IN URINE SEDIMENT BY MICROSCOPY HIGH POWER FIELD 60 0 - 4 07/08 H Specimen Type: URINE No comment entered. Ordering Provider: TETE PACHECO Report Released Date/Time: Jun 23, 2023 02:55 PM Reporting Lab: [facility] [address] [place] [phone] Performing Lab: [facility] [address] [place] [address] [facility] URINALYS IS HEMOGLOBIN [PRESENCE] IN URINE BY TEST STRIP 0.50 07/08 Specimen Type: URINE No comment entered. Ordering Provider: TETE PACHECO Report Released Date/Time: Jun 23, 2023 02:55 PM Reporting Lab: [facility] [address] [place] [address] Performing Lab: [facility] [address] [place] [address] [facility] URINALYS IS NITRITE [PRESENCE] IN URINE BY TEST STRIP Negative 07/08 Specimen Type: URINE No comment entered. Ordering Provider: TETE PACHECO Report Released Date/Time: Jun 23, 2023 02:55 PM Reporting Lab: [facility] [address] [place] [address] Performing Lab: [facility] [address] [place] [phone] [facility] URINALYS IS LEUKOCYTE ESTERASE [PRESENCE] IN URINE BY TEST STRIP Negative 07/08 Specimen Type: URINE No comment entered. Ordering Provider: TETE PACHECO Report Released Date/Time: Jun 23, 2023 02:55 PM Reporting Lab: [facility] [address] Performing Lab: [facility] [address] [place] [phone] [facility] URINALYS IS CLARITY OF URINE Clear 07/08 Specimen Type: URINE No comment entered. Ordering Provider: TETE PACHECO Report Released Date/Time: Jun 23, 2023 02:55 PM Reporting Lab: [facility] [address] [place] [address] Performing Lab: [facility] [address] [place] [address] [facility] URINALYS IS UROBILINOG EN [MASS/VOLU ME] IN URINE BY TEST STRIP Normal 0.0 - 1.99 07/08 Specimen Type: URINE No comment entered. Ordering Provider: TETE PACHECO Report Released Date/Time: Jun 23, 2023 02:55 PM Reporting Lab: [facility] [address] [place] [address] Performing Lab: [facility] [address] [place] [address] [facility] URINALYS IS SPERMATOZO A [#/VOLUME] IN URINE BY AUTOMATED COUNT OCC 07/08 Specimen Type: URINE No comment entered. Ordering Provider: TETE PACHECO Report Released Date/Time: Jun 23, 2023 02:55 PM Reporting Lab: [facility] [address] [place] [address] Performing Lab: [facility] [address] [place] [address] [facility] Vital Signs Combined list of inpatient and outpatient Vital Signs from Department of Defense and Veterans Affairs, ranging from 12 months to all on record, depending upon the facility. Vital Sign Value Date Comments Source Encounters Combined list of: 1) Encounters from Department of Veterans Affairs facilities going back up to thelast 18 months. 2) Encounters from the Department of Defense facilities going back up to 280 months. Location Location Details Encounter Type Encounter Number Reason For Visit Attending Provider ADM Date DC Date Status Disposition Source [place] Outpatient Encounter [id number] Jadon VALDES 09/16 [place] [facility] [place] Outpatient Encounter [id number] 10/09 [facility] N[facility] PRO PHONE CALL 11-20 MIN [id number] Diagnos is: ICD-10- CM R05.1 Acute cough<b r/> Adrienne COVINGTON M 10/09 [facility] Encounter [id number] Diagnos is: ICD-10- CM U07.1 COVID-1 9
CASEY WOODWARD N 10/09 [facility] Outpatient Encounter [id number] 10/22 [facility] PRO PHONE CALL 5-10 MIN [id number] Diagnos is: ICD-10- CM Z71.89 Other specifi ed milieu counselor ing<br/ > SASHA WALSH 11/21 [facility] Outpatient Encounter [id number] 11/21 [facility] En[facility] [id number] 11/27 [facility] En[facility] [id number] 11/27 [facility] Outpatient Encounter [id number] 12/01 [facility] Outpatient Encounter [id number] 12/09 [facility] EDUCATION NOC INDIVID [id number] Diagnos is: ICD-10- CM Z71.9 Stock Counter ing, 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
CAYCI,CENK 01/21 [facility] ELECTROCAR DIOGRAM TRACING [id number] Diagnos is: ICD-10- CM Z01.810 Encount er for preproc edural cardiov ascular examina tion
FLOREA,TOSHA REL 02/05 [facility]P EST MOD 30-39 MIN [id number] Diagnos is: ICD-10- CM Z01.818 Encount er for other preproc edural examina tion
CAROL RIOS 02/05 [facility] [id number] Diagnos is: ICD-10- CM Z01.818 Encount er for other preproc edural examina tion
REVA GARDINER 02/18 [facility]. NEW [facility] Outpatient Encounter [id number] TISHA MILLER 02/18 [facility] En[facility] [id number] SYSTEM,CIS -ARK 02/26 [facility] OFF[facility] O/P NEW LOW 30-44 MIN [id number] Diagnos is: ICD-10- CM Z01.818 Encount er for other preproc edural examina tion
SHU SYLVESTER 02/26 [facility] Outpatient Encounter [id number] Atif ROSENBERG 02/26 [facility] Outpatient Encounter [id number] SYSTEM,CIS -ARK 02/26 [facility] Outpatient Encounter [id number] 02/26 [facility] Outpatient Encounter [id number] SHU SYLVESTER E E 02/26 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
CAYCOLTON,NILESHK 02/26 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
SHU SYLVESTER E E 02/26 [facility] Out[facility] Encounter [id number] 02/26 [facility] POSTOP FOLLOW-UP VISIT [id number] Diagnos is: ICD-10- CM Z48.817 Encntr for surgica l aftcr fol surgery on the skin, subcu<b r/> ZORTWILLIAM, LODY 03/11 [facility] POSTOP FOLLOW-UP VISIT [id number] Diagnos is: ICD-10- CM Z48.817 Encntr for surgica l aftcr fol surgery on the skin, subcu<b r/> ZORTMAN,ME LODY 04/08 [facility] Outpatient Encounter [id number] 05/26 [facility] Outpatient Encounter [id number] ABELLEVAR Jadon Swan 06/22 [facility] OFF/OP EST DECEMBER X REQ PHY/QHP [id number] Diagnos is: ICD-10- CM Z71.89 Other specifi ed milieu counselor ing<br/ > ASTRID HACKETT 06/23 [facility] OFFICE O/P EST MOD 30-39 MIN [id number] Diagnos is: ICD-10- CM R31.9 Hematur ia, 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
TEENA KUMAR 07/13 [facility] Outpatient Encounter [id number] VIVEK VIDALES 07/21 [facility] PRO PHONE CALL 5-10 MIN [id number] Diagnos is: ICD-10- CM G47.33 Obstruc tive sleep apnea (adult) ([facility] melanie)
CHANI CAMPOVERDE 08/28 [facility] Outpatient Encounter [id number] TEENA KUMAR JOSE 08/31 [facility] Out[facility] Encounter [id number] TEENA KUMAR JOSE 08/31 [facility] Outpatient Encounter [id number] TEENA KMUAR JOSE 08/31 [facility] Outpatient Encounter [id number] 09/01 [facility] N. [facility] OFFICE O/P NEW MOD 45 MIN [id number] Diagnos is: ICD-10- CM R31.0 Gross hematur ia
BIA RICHARDSON SHARI NETTLES 09/02 [facility]. [facility] Outpatient Encounter [id number] 09/02 [facility] Outpatient Encounter [id number] 09/02 [facility] Outpatient Encounter [id number] ASTRID HACKETT 09/02 [facility]. [facility] Outpatient Encounter [id number] ASTRID HACKETT 09/02 [facility] Outpatient Encounter [id number] ASTRID HACKETT 09/03 [facility] Outpatient Encounter [id number] TEENA KUMAR 09/03 [facility] Outpatient Encounter [id number] 09/08 [facility] Outpatient Encounter [id number] ASTRID HACKETT 09/08 [facility] Outpatient Encounter [id number] ASTRID HACKETT 09/08 [facility]. [facility] Outpatient Encounter [id number] Diagnos is: ICD-10- CM G47.33 Obstruc tive sleep apnea (adult) ([facility])
MARIELLA ANDRADE 09/08 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
JENNYFER,WAYNE GABRIELA A 09/11 [facility] CP[facility] [id number] Diagnos is: ICD-10- CM G47.33 Obstruc tive sleep apnea (adult) ([facility] melan[facility])
JULIAN-QURADHA CROCKETTIDAD 10/13 [facility] Outpatient Encounter [id number] FIDE JOHNSON 10/14 [facility] SPECIAL SUPPLIES PHYS/QHP [id number] Diagnos is: ICD-10- CM G47.33 Obstruc tive sleep apnea (adult) ([facility] melanie)
FIDE JOHNSON ANGELA Swan 10/14 [facility] Procedures Combined list of: 1) Procedures from Department of Veterans Affairs facilities going back up to thelast 18 months, not all [place] non-surgical procedures are included; 2) All procedures from the Department of Defense facilities. Procedure Procedure Type Code Date Perfomer Comments Ramsey e Bilateral upper blepharoplasty, transpalpebral browpexy with endotine, Levator advancement, tarsal strip/canthoplasty REVISION OF UPPER EYELID [id number] 3 BERTA HERNANDEZ [facility] Social History Combined list of available smoking, tobacco, and other social history from Department of Defense and Veterans Affairs facilities. Social History Type Response Date Comment Ramsey beckett Tobacco smoking status [facility] VA-TOBACCO QUIT 5 TO < 15 YRS 07/13/2023 [facility] IC History of tobacco use VA-TOBACCO FORMER USER 07/13/2023 [facility] History of tobacco use [place]-TOBACCO FORMER USER 07/10/2022 [facility] History of tobacco use VA-TOBACCO QUIT 15 YRS OR MORE 07/11/2021 [facility] History of tobacco use [place]-TOBACCO FORMER USER 07/05/2020 [facility] History of tobacco use PRIOR TOBACCO USE CESSATION DATE 09/01/2017 Rinku AMARAL/Bowen Kaur [facility] History of tobacco use TOBACCO PACK YEARS 08/31/2017 [facility] History of tobacco use PRIOR TOBACCO USE CESSATION DATE 10/24/2016 Rinku AMARAL/Bowen Kaur [facility] History of tobacco use TOBACCO PACK YEARS 10/23/2016 [facility] History of tobacco use PRIOR TOBACCO USE CESSATION DATE 07/09/2016 Rinku AMARAL/Bowen Kaur [facility] History of tobacco use TOBACCO PACK YEARS 07/09/2016 [facility] History of tobacco use PRIOR TOBACCO USE CESSATION DATE 07/09/2015 Rinku AMARAL/Bowen Kaur [facility] History of tobacco use TOBACCO PACK YEARS 07/09/2015 [facility] History of tobacco use CURRENT TOBACCO USE 07/12/2014 [facility] History of tobacco use CURRENT TOBACCO USE 07/07/2013 [facility] Plan of Care List of future care activities from Department of Veterans Affairs facilities. Additional future care activities may be listed in the Assessment and Plan section. Date/Time Care Activity Care Activity Detail Facili ty 01/13/2024 AMBULATORY - SURGERY AMBULATORY - SURGERY [facility] 02/18/2024 AMBULATORY - SURGERY AMBULATORY - SURGERY MUNIR/Bowen JOHNSON [facility] 07/05/2024 AMBULATORY - NONE AMBULATORY - NONE [facility] 07/12/2024 AMBULATORY - MEDICINE AMBULATORY - MEDICI [facility] Advance Directives List of completed, amended, or rescinded Advance Directives on record at Department of Veterans Affairs facilities. An actual copy of the Directive is not included. Date Advance Directive Provider Source 07/13/2023 ADVANCE DIRECTIVE NO TIFICATION AND SCREENING ROSA M SUAZO [facility] 07/10/2022 ADVANCE DIRECTIVE NO TIFICATION AND SCREENING ASTRID BHAT [facility] 07/05/2020 ADVANCE DIRECTIVE NO TIFICATION AND SCREENING DIPTI GILES [facility] 07/01/2019 ADVANCE DIRECTIVE DISCUSSION BETTY BROTHERS F [facility] 06/30/2018 ADVANCE DIRECTIVE DISCUSSION BETTY BROTHERS F [facility] 09/01/2017 ADVANCE DIRECTIVE DISCUSSION BETTY BROTHERS F [facility] 10/24/2016 ADVANCE DIRECTIVE DISCUSSION BETTY BROTHERS [facility] 07/09/2016 ADVANCE DIRECTIVE DISCUSSION BETTY BROTHERS [facility] 07/22/2013 ADVANCE DIRECTIVE SUZANNA HOOK [facility]
== END 2024-01-11 10:52 | disposition home or self-care (01) ==
LOC: LKVREF 10:51
PROVIDERS: PCP Family Medicine; Visit Provider Family Medicine
DX: N40.1 Benign prostatic hyperplasia with lower urinary tract symptoms (principal)
CPT/HCPCS: 84153; 84154

== ENCOUNTER 2024-03-02 08:32 | Outpatient (CLI) | payer MEDICARE, OTHER, SELFPAY ==
--- OUTSIDE RECORDS SUMMARY | 2024-03-03 02:47 | XMS_ITS | Continuity of Care Document ---
Author Name [facility] Organization [facility] Care Team Providers Care Clinic Licensed Practical Nurse Name Role Phone [facility] Unavailable Unavailable Problems Combined list of problems [...] 1 year (ordered by Ms Hernandez). N. [place] Chronic kidney disease stage 3A Active Condition N. [facility] Chronic low back pain Active Condition N. [facility] Coronary atherosclerosis Active Condition N. [facility] Ex-cigarette smoker Active Condition [facility] Exposure to potentially hazardous substance Active Condition [facility] Exposure to potentially hazardous substance ([facility] [id number]) Active Condition Nov 26 4 Entered By: JAIME ROTHMAN Comment: Entered automatically through [employer] Problem List documentation program [facility] Hearing loss Active Condition [facility] Hematuria Active Condition [facility] Herbicide poisoning Active Condition [facility] History of heartburn Active Condition [facility] Hyperlipidemia Active Condition [facility] Hypertension Active Condition [facility] Lower urinary tract symptoms due to benign prostatic hypertrophy Active Condition [facility] Multiple nodules of lung Active Condition Aug 07, 2020 Entered By: JEFFERSON KOCH Comment: LDCT 08/06/20: Rec repeat in one year (ordered). [facility] Obesity Active Condition [facility] Osteoarthritis Active Condition [facility] Tobacco user Active Condition Jul 05, 2020 Entered By: JEFFERSON KOCH Comment: Quit ~ 2013. [facility] Vitamin D deficiency Active Condition [facility] Diarrhea (SNOMED CT [id number]) Inactive Condition 07/12/2014 [facility] Knee pain Inactive Condition 07/01/2018 [facility] Lactose intolerance Inactive Condition 07/01/2018 [facility] Seborrheic dermatitis Inactive Condition 07/01/2018 [facility] Tinnitus Inactive Condition 07/01/[address] [facility] Diagnosis: ICD-10-CM N40.1 Benign prostatic hyperplasia with lower urinary tract symp Active Diagnosis [facility] Diagnosis: ICD-10-CM Z71.9 Counseling, unspecified Active Diagnosis [facility] Diagnosis: ICD-10-CM H02.834 Dermatochalasis of left upper eyelid Active Diagnosis [facility] Diagnosis: ICD-10-CM G47.33 Obstructive sleep apnea (adult) (pediatric) Active Diagnosis [facility] Diagnosis: ICD-10-CM R31.0 Gross hematuria Active Diagnosis [facility] Diagnosis: ICD-10-CM R31.9 Hematuria, unspecified Active Diagnosis [facility] Diagnosis: ICD-10-CM Z71.89 Other specified counseling Active Diagnosis [facility] Diagnosis: ICD-10-CM Z48.817 Encntr for surgical aftcr fol surgery on the skin, subcu Active Diagnosis 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 Diagnosis: ICD-10-CM Z01.818 Encounter for other preprocedural examination Active Diagnosis [facility] Diagnosis: ICD-10-CM Z01.810 Encounter for preprocedural cardiovascular examination Active Diagnosis [facility] Diagnosis: ICD-10-CM H57.813 Brow ptosis, bilateral Active Diagnosis [facility] Diagnosis: ICD-10-CM U07.1 COVID-19 Active Diagnosis N. [facility] Diagnosis: ICD-10-CM R05.1 Acute cough Active Diagnosis [facility] Medications Combined list of outpatient medications from Department of Defense and Veterans Affairs facilities.Medications provided include 1) outpatient medications from the last 15 months, and 2) patient-reported medications. Medication Details Route Status Patient Instructions Prescription Expires Prescription Number Last Dispense Date Ordering Provider Order Date Order Qty Source ACETAMINOPH EN 325MG TAB ACETAMIN OPHEN 325MG TAB Non-VA TAKE TWO TABLETS BY MOUTH HS PRN Jul 09, 2015 Non-VA Document ed by: Beny SANTORO Document ed at: [facility] ORAL ACTIVE CIELO SANTORO [place] 2014 [facility] ACETAMINOPH EN 500MG TAB ACETAMIN OPHEN 500MG TAB TAKE TWO TABLETS BY MOUTH EVERY 6 HOURS NEEDED FOR PAIN FOR PAIN Feb 20, 2023 40 Mar 28, 2023 [id number] Feb 26, 2023 STELLATHAI [facility] ORAL 03/28/2023 [id number] Beny DOUGLAS 2022 40 [facility] AMLODIPINE BESYLATE 2.5MG TAB AMLODIPI NE BESYLATE 2.5MG TAB Active TAKE ONE TABLET BY MOUTH EVERY 24 HOURS FOR BLOOD PRESSURE FOR BLOOD PRESSURE Jul 13, 2023 90 Jul 13, 2024 [id number] January 02, 2024 MARI KUMAR [facility] ORAL ACTIVE 07/13/2024 [id number] Carrie KUMAR 2022 90 [facility] AMLODIPINE TAB AMLODIPI NE TAB Non-VA TAKE BY MOUTH Feb 05, 2023 Non-VA Document ed by: TANNER RIOS Document ed at: [facility] ORAL ACTIVE BRENNA RIOS 2022 [facility] ASPIRIN 81MG TAB,CHEWABL E ASPIRIN 81MG TAB,CHEW ABLE Non-VA CHEW ONE TABLET BY MOUTH Feb 05, 2023 Non-VA Document ed by: TANNER RIOS Document ed at: [facility] ORAL ACTIVE BRENNA RIOS 2022 [facility] ASPIRIN 81MG TAB,EC ASPIRIN 81MG TAB,EC Non-VA TAKE ONE TABLET BY MOUTH ONE TIME EACH DAY Sep 01, 2017 Non-VA Document ed by: Beny SANTORO Document ed at: [facility] [place] ORAL ACTIVE CIELO SANTORO [place] 2017 [facility] ATORVASTATI N CA 40MG TAB ATORVAST ATIN CA 40MG TAB Non-VA TAKE ONE TABLET BY MOUTH EVERY DAY Feb 05, 2023 Non-VA Document ed by: TANNER RIOS Document ed at: [facility] ORAL ACTIVE BRENNA RIOS 2022 [facility] ATORVASTATI N CA 80MG TAB ATORVAST ATIN CA 80MG TAB Active TAKE ONE-HALF TABLET BY MOUTH ONE TIME EACH DAY FOR CHOLESTE ROL FOR CHOLESTE ROL Jul 13, 2023 45 Jul 13, 2024 [id number] January 02, 2024 MARI KUMAR [facility] ORAL ACTIVE 07/13/2024 [id number] Carrie KUMAR 2022 45 [facility] CARBOXYMETH YLCELLULOSE NA 0.25% SOLN,OPH CARBOXYM ETHYLCEL LULOSE NA 0.25% SOLN,OPH Active INSTILL 2 DROPS IN BOTH EYES TWICE A DAY NEEDED FOR EYE DRYNESS AND IRRITATI ON FOR EYE IRRITATI ON Apr 08, 2023 15 Apr 08, 2024 [id number] May 02, 2023 THAI DOUGLAS [facility] OPHTHA LMIC ACTIVE 04/08/2024 [id number] Beny DOUGLAS 2022 15 [facility] CHOLECALCIF FRANCINE 25MCG (1,000UNIT) TAB CHOLECAL CIFEROL 25MCG (1,000UN IT) TAB Non-VA TAKE TWO TABLETS BY MOUTH Feb 05, 2023 Non-VA Document ed by: TANNER RIOS Document ed at: [facility] ORAL ACTIVE BRENNA RIOS 2022 [facility] CYANOCOBALA MIN TAB CYANOCOB ALAMIN TAB Non-VA TAKE Feb 05, 2023 Non-VA Document ed by: TANNER RIOS Document ed at: [facility] ACTIVE BRENNA RIOS 2022 [facility] DEXAMETHASO NE NA PHOSPHATE 0.1% SOLN,OPH DEXAMETH ASONE NA PHOSPHAT E 0.1% SOLN,OPH INSTILL 2 DROPS IN OPERATIV E EYE EVERY 6 HOURS FOR INFLAMMA TION FOR INFLAMMA TION Feb 20, 2023 5 Mar 28, 2023 [id number] Feb 26, 2023 THAI DOUGLAS [facility] OPHTHA LMIC 03/28/2023 [id number] Beny DOUGLAS 2022 5 [place] [facility] DICLOFENAC NA 1% GEL,TOP DICLOFEN AC NA 1% GEL,TOP Active APPLY 4 GRAMS TOPICALL Y FOUR TIMES A DAY NEEDED TO KNEES FOR PAIN (MEASURE DOSE USING SUPPLIED DOSING CARD) Sep 03, 2023 200 Sep 03, 2024 [id number] Sep 07, 2023 MARI KUMAR [facility] TOPICA L ACTIVE 09/03/2024 [id number] Carrie KUMAR RNIE 2023 200 [facility] DICLOFENAC NA 1% GEL,TOP DICLOFEN AC NA 1% GEL,TOP Disconti nued APPLY 4 GRAMS TOPICALL Y FOUR TIMES A DAY NEEDED TO KNEES FOR PAIN (MEASURE DOSE USING SUPPLIED DOSING CARD) Jul 10, 2022 200 Jul 11, 2023 [id number] Feb 18, 2023 PEACE ANDREWS [facility] TOPICA L DISCONT INUED 07/11/2023 [id number] CESIA ANDREWS AMA 2021 200 [facility] ERYTHROMYCI N 0.5% OINT,OPH ERYTHROM YCIN 0.5% OINT,OPH APPLY A THIN LAYER TO INCISION (S) TO OPERATIV E EYE FOUR TIMES A DAY FOR WOUND CARE FOR WOUND CARE Feb 20, 2023 4 Feb 27, 2024 [id number] Feb 26, 2023 THAI DOUGLAS [facility] OPHTHA LMIC 02/27/2024 [id number] Beny DOUGLAS 2022 4 [place] [facility] FAMOTIDINE 20MG TAB FAMOTIDI NE 20MG TAB Non-VA TAKE ONE TABLET BY MOUTH TWICE A DAY Jul 01, 2019 Non-VA Document ed by: PHIL ROSEN Document ed at: [facility] ORAL ACTIVE FIDE ROSEN 2018 [facility] FAMOTIDINE TAB FAMOTIDI NE TAB Non-VA TAKE Feb 05, 2023 Non-VA Document ed by: TANNER RIOS Document ed at: [facility] [place] [facility] ACTIVE BRENNA RIOS 2022 [place] [facility] [place] [facility] FINASTERIDE 5MG TAB FINASTER [place]OOK[place] 5MG TAB Active TAKE ONE TABLET BY MOUTH ONE TIME EACH DAY FOR PROSTATE FOR PROSTATE Feb 18, 2024 90 Feb 18, 2025 [id number] Feb 18, 2024 KERRI PARK K N. [place] ORAL ACTIVE 02/18/2025 [id number] Masoud PARK 2023 90 N. [place] [facility] FINASTERIDE 5MG TAB FINASTER [place] 5MG TAB Disconti nued TAKE ONE TABLET BY MOUTH ONE TIME EACH DAY FOR PROSTATE FOR PROSTATE Sep 11, 2023 30 Sep 11, 2024 [id number] Jan 29, 2024 CHUY RICHARDSON N. [place] ORAL DISCONT INUED (EDIT) 09/11/2024 [id number] Masoud RICHARDSON 2023 30 N. [place] [facility] FISH OIL 1000MG (500MG DHA/EPA) CAP,ORAL FISH OIL 1000MG (500MG DHA/EPA) CAP,ORAL Non-VA TAKE 2 CAPSULES BY MOUTH TWICE A DAY TO LOWER TRIGLYCE RIDES Jul 13, 2023 Non-VA Document ed by: MARI KUMAR Document ed at: [facility] ORAL ACTIVE Carrie KUMAR 2022 [facility] HYDROCHLORO THIAZIDE 25MG/LOSART AN POTASSIUM 100MG TAB HYDROCHL OROTHIAZ BROOKLYN 25MG/LOS JUSTINA POTASSIU M 100MG TAB Disconti nued TAKE 1 TABLET BY MOUTH ONE TIME EACH DAY FOR HIGH BLOOD PRESSURE FOR HIGH BLOOD PRESSURE Feb 23, 2023 60 Feb 24, 2024 [id number] May 06, 2023 KAYLIE WELLS [facility] ORAL DISCONT INUED 02/24/2024 [id number] SAADIA COE 2022 60 [facility] HYDROCHLORO THIAZIDE 25MG/LOSART AN POTASSIUM 100MG TAB HYDROCHL OROTHIAZ [place] 25MG/LOS JUSTINA POTASSIU M 100MG TAB Disconti nued TAKE 1 TABLET BY MOUTH ONE TIME EACH DAY FOR HIGH BLOOD PRESSURE FOR HIGH BLOOD PRESSURE Nov 21, 2022 60 Nov 22, 2023 [id number] January 16, 2023 YANNI TRIMBLE N. [place] ORAL DISCONT INUED 11/22/2023 [id number] YANNI TRIMBLE 2022 60 N. [place] [facility] MARINE LIPID (FISH OIL) CAP,ORAL MARINE LIPID (FISH OIL) CAP,ORAL Non-VA TAKE BY MOUTH Feb 05, 2023 Non-VA Document ed by: TANNER RIOS Document ed at: [facility] ORAL ACTIVE BRENNA RIOS 2022 [facility] METOPROLOL TARTRATE 25MG TAB METOPROL OL TARTRATE 25MG TAB Active TAKE ONE TABLET BY MOUTH EVERY 12 HOURS FOR BLOOD PRESSURE FOR BLOOD PRESSURE Jul 13, 2023 180 Jul 13, 2024 [id number] January 02, 2024 MARI KUMAR [facility] ORAL ACTIVE 07/13/2024 [id number] Carrie KUMAR 2022 180 [facility] METOPROLOL TARTRATE TAB METOPROL OL TARTRATE TAB Non-VA TAKE BY MOUTH TWICE A DAY Feb 05, 2023 Non-VA Document ed by: TANNER RIOS Document ed at: [facility] ORAL ACTIVE BRENNA RIOS 2022 [facility] METRONIDAZO LE 0.75% CREAM,TOP METRONID AZOLE 0.75% CREAM,TO P Non-VA APPLY TOPICALL Y Feb 05, 2023 Non-VA Document ed by: TANNER RIOS Document ed at: [facility] TOPICA L ACTIVE BRENNA RIOS 2022 [facility] NIACIN TAB NIACIN TAB Non-VA TAKE Feb 05, 2023 Non-VA Document ed by: TANNER RIOS Document ed at: [facility] ACTIVE BRENNA RIOS 2022 [facility] NITROGLYCER IN TAB,SUBLING UAL NITROGLY CERIN TAB,SUBL INGUAL Non-VA DISSOLVE UNDER THE TONGUE EVERY 5 MINUTES FOR UP TO 3 DOSES IF NEEDED NEEDED Feb 05, 2023 Non-VA Document ed by: TANNER RIOS Document ed at: [facility] SUBLIN GUAL ACTIVE BRENNA RIOS 2022 [facility] NON VA MED NOT LISTED MISCELLANEO US NON VA MED NOT LISTED MISCELLA NEOUS Non-VA USE Feb 05, 2023 Non-VA Document ed by: TANNER RIOS Document ed at: [facility] ACTIVE BRENNA RIOS 2022 [facility] OXYCODONE HCL 5MG TAB OXYCODON E HCL 5MG TAB TAKE ONE TABLET BY MOUTH EVERY 4 HOURS NEEDED FOR PAIN FOR PAIN Feb 20, 2023 30 Mar 28, 2023 [id number] Feb 26, 2023 THAI DOUGLAS [facility] ORAL 03/28/2023 [id number] Beny DOUGLAS 2022 30 [facility] POLYVINYL ALCOHOL 1.4% SOLN,OPH POLYVINY L ALCOHOL 1.4% SOLN,OPH INSTILL 2 DROPS IN BOTH EYES EVERY HOUR NEEDED FOR EYE IRRITATI ON FOR EYE IRRITATI ON Feb 20, 2023 15 Feb 27, 2024 [id number] Mar 25, 2023 THAI DOUGLAS [facility] OPHTHA LMIC 02/27/2024 [id number] Beny DOUGLAS 2022 15 [facility] PROBIOTIC [NON-VA] CAP,ORAL PROBIOTI C [NON-VA] CAP,ORAL Non-VA TAKE Jul 09, 2015 Non-VA Document ed by: Beny SANTORO Document ed at: [facility] ACTIVE CIELO SANTORO 2014 [facility] TAMSULOSIN HCL 0.4MG CAP TAMSULOS IN HCL 0.4MG CAP Active TAKE ONE CAPSULE BY MOUTH ONE TIME EACH DAY FOR URINATIO N FOR URINATIO N Feb 18, 2024 90 Feb 18, 2025 [id number] Feb 18, 2024 KERRI PARK N. [facility] ORAL ACTIVE 02/18/2025 [id number] Masoud PARK 2023 90 N. [facility] TAMSULOSIN HCL 0.4MG CAP TAMSULOS IN HCL 0.4MG CAP Disconti nued TAKE ONE CAPSULE BY MOUTH ONE TIME EACH DAY FOR URINATIO N FOR URINATIO N Sep 11, 2023 30 Sep 11, 2024 [id number] Jan 29, 2024 CHUY RICHARDSON N. [facility] ORAL DISCONT INUED (EDIT) 09/11/2024 [id number] Masoud RICHARDSON 2023 30 N. [facility] TRIAMCINOLO NE 0.1% OINT,TOP TRIAMCIN OLONE 0.1% OINT,TOP Non-VA APPLY TOPICALL Y Feb 05, 2023 Non-VA Document ed by: TANNER RIOS Document ed at: [facility] TOPICA L ACTIVE BRENNA RIOS 2022 [facility] Allergies, Adverse Reactions, Alerts Combined list of allergies from Department of Defense and Veterans Affairs facilities. It does not include entries that were removed or entered in error. Substance Category Reaction Severity Reaction type Status Date Reported Comments Source LISINOPRIL Propensity to adverse reactions to drug (finding) Cough active 3 [facility] Immunizations Combined list of available immunizations from the Department of Defense and Veterans Affairs facilities. Immunization Series Date Given Administered By Site Reaction Lot Number CVX Code Drug Retort Press Operator Status Comments Source INFLUENZA, UNSPECIFIED FORMULATION 2022 88 complet ed N. [facility] INFLUENZA, UNSPECIFIED FORMULATION 2021 88 complet ed N. [facility] COVID-19 (PFIZER), MRNA, LNP-S, PF, 30 MCG/0.3 ML DOSE, FABY-SUCROSE (AGES 12+ YEARS) 4 2021 217 complet ed N. [facility] COVID-19 (PFIZER), MRNA, LNP-S, PF, 30 MCG/0.3 ML DOSE 3 2020 208 complet ed N. [facility] INFLUENZA, UNSPECIFIED FORMULATION 2020 88 complet ed [facility] ZOSTER RECOMBINANT 2020 187 complet ed [facility] COVID-19 (PFIZER), MRNA, LNP-S, PF, 30 MCG/0.3 ML DOSE 2 2020 208 complet ed PFR; [id number]; 1 [facility] COVID-19 (PFIZER), MRNA, LNP-S, PF, 30 MCG/0.3 ML DOSE 1 2020 208 complet ed PFR; [id number]; 1 [facility] TDAP 2019 115 complet ed [facility] ZOSTER RECOMBINANT 2019 187 complet ed [facility] INFLUENZA, UNSPECIFIED FORMULATION 2019 88 complet ed [facility] INFLUENZA, INJECTABLE, QUADRIVALENT, PRESERVATIVE FREE 2017 150 complet ed [facility] INFLUENZA, INJECTABLE, QUADRIVALENT, PRESERVATIVE FREE 2016 150 complet ed [facility] INFLUENZA, SEASONAL, INJECTABLE, PRESERVATIVE FREE 2015 140 complet ed [facility] INFLUENZA, SEASONAL, INJECTABLE, PRESERVATIVE FREE 2014 140 complet ed [facility] PNEUMOCOCCAL CONJUGATE PCV 13 2014 133 complet ed [facility] FLU,3 YRS (HISTORICAL) 2013 88 complet ed [facility] Varicella Zoster (HISTORICAL) 2013 complet ed [facility] PNEUMOCOCCAL, UNSPECIFIED FORMULATION 2012 109 complet ed [facility] INFLUENZA, UNSPECIFIED FORMULATION 2012 88 complet ed [facility] INFLUENZA, UNSPECIFIED FORMULATION 2011 88 complet ed [facility] TD(ADULT) UNSPECIFIED FORMULATION 2009 139 complet ed [facility] Results Combined list of recent chemistry, hematology and other laboratory results from Department of Defense and Veterans Affairs, ranging from 15 months to all on record, depending upon the facility. Order Name Results Value Reference Range Date Interpretation Specimen Comments Source CREATININ E(with eGFR) CREATININE [MASS/VOLUM E] IN SERUM OR PLASMA 1.2 mg/dL 0.5 - 1.2 08/06 Specimen Type: PLASMA [...] Reference: [email or web address] Ordering Provider: KLARISSA KUMAR IE Report Released Date/Time: Jul 21, 2023 01:47 PM Reporting Lab: [facility] [address] Performing Lab: [facility] [address] THE [place] [address] [facility] CREATININ E(with eGFR) GLOMERULAR FILTRATION RATE/1.73 SQ M.PREDICTED [VOLUME RATE/AREA] IN SERUM, PLASMA OR BLOOD BY CREATININE- BASED FORMULA (CKD-EPI 2020) 63 mL/min 08/06 Specimen Type: PLASMA Comment: eGFR calculated [...] Reference: [email or web address] Ordering Provider: KLARISSA KUMAR IE Report Released Date/Time: Jul 21, 2023 01:47 PM Reporting Lab: [facility] [address] THE [address] Performing Lab: [facility] [address] THE [place] [phone] [facility] B12 COBALAMIN (VITAMIN B12) [MASS/VOLUM E] IN SERUM OR PLASMA 836 pg/mL 240 - 900 07/08 Specimen Type: SERUM No comment entered. Ordering Provider: TETE PACHECO Report Released Date/Time: Jun 23, 2023 02:55 PM Reporting Lab: [facility] [address] THE [place] [address] Performing Lab: [facility] [address] THE [place] [address] [facility] CBC (DIFF&PLT ) LEUKOCYTES [#/VOLUME] IN BLOOD BY AUTOMATED COUNT 6.04 10*3/u L 4.6 - 10.8 07/08 Specimen Type: BLOOD No comment entered. Ordering Provider: TETE PACHECO Report Released Date/Time: Jun 23, 2023 02:55 PM Reporting Lab: [facility] [address] [place] [address] Performing Lab: [facility] [address] [place] [address] [facility] CBC (DIFF&PLT ) ERYTHROCYTE S [#/VOLUME] IN BLOOD BY AUTOMATED COUNT 4.59 10*6/u L 4.44 - 6.1 07/08 Specimen Type: BLOOD No comment entered. Ordering Provider: TETE PACHECO Report Released Date/Time: Jun 23, 2023 02:55 PM Reporting Lab: [facility] [address] [place] [address] Performing Lab: [facility] [address] THE [place] [address] [facility] CBC (DIFF&PLT ) HEMOGLOBIN [MASS/VOLUM E] IN BLOOD 14.5 g/dL 13.9 - 18 07/08 Specimen Type: BLOOD No comment entered. Ordering Provider: TETE PACHECO Report Released Date/Time: Jun 23, 2023 02:55 PM Reporting Lab: [facility] [address] THE [place] [address] Performing Lab: [facility] [address] [place] [address] [facility] CBC (DIFF&PLT ) HEMATOCRIT [VOLUME FRACTION] OF BLOOD BY AUTOMATED COUNT 43.8 41 - 52 07/08 Specimen Type: BLOOD No comment entered. Ordering Provider: TETE PACHECO Report Released Date/Time: Jun 23, 2023 02:55 PM Reporting Lab: [facility] [address] THE [place] [phone] Performing Lab: [facility] [address] [place] [address] [facility] CBC (DIFF&PLT ) MCV [ENTITIC VOLUME] BY AUTOMATED COUNT 95.4 fL 80 - 98 07/08 Specimen Type: BLOOD No comment entered. Ordering Provider: TETE PACHECO Report Released Date/Time: Jun 23, 2023 02:55 PM Reporting Lab: [facility] [address] THE [place] [phone] Performing Lab: [facility] [address] [place] [address] [facility] CBC (DIFF&PLT ) MCH [ENTITIC MASS] BY AUTOMATED COUNT 31.6 pg 27 - 33.3 07/08 Specimen Type: BLOOD No comment entered. Ordering Provider: TETE PACHECO Report Released Date/Time: Jun 23, 2023 02:55 PM Reporting Lab: [facility] [address] [place] [address] Performing Lab: [facility] [address] [place] [address] [facility] CBC (DIFF&PLT ) MCHC [MASS/VOLUM E] BY AUTOMATED COUNT 33.1 g/dL 31.8 - 37.1 07/08 Specimen Type: BLOOD No comment entered. Ordering Provider: TETE PACHECO Report Released Date/Time: Jun 23, 2023 02:55 PM Reporting Lab: [facility] [address] [place] [address] Performing Lab: [facility] [address] [place] [address] [facility] CBC (DIFF&PLT ) PLATELETS [#/VOLUME] IN BLOOD BY AUTOMATED COUNT 191 10*3/u L 130 - 440 07/08 Specimen Type: BLOOD No comment entered. Ordering Provider: TETE PACHECO Report Released Date/Time: Jun 23, 2023 02:55 PM Reporting Lab: [facility] [address] THE [place] [phone] Performing Lab: [facility] [address] [facility] [phone] [facility] CBC (DIFF&PLT ) PLATELET MEAN VOLUME [ENTITIC VOLUME] IN BLOOD BY AUTOMATED COUNT 8.9 fL 7.4 - 10.5 07/08 Specimen Type: BLOOD No comment entered. Ordering Provider: TETE PACHECO Report Released Date/Time: Jun 23, 2023 02:55 PM Reporting Lab: [facility] [address] [facility] [id number] Performing Lab: [facility] [address] [facility] [id number] [facility] CBC (DIFF&PLT ) EOSINOPHILS /100 LEUKOCYTES IN BLOOD 2.8 0 - 3 07/08 Specimen Type: BLOOD No comment entered. Ordering Provider: TETE PACHECO Report Released Date/Time: Jun 23, 2023 02:55 PM Reporting Lab: [facility] [address] Performing Lab: [facility] [address] [facility] [place] [address] [facility] CBC (DIFF&PLT ) BASOPHILS/1 00 LEUKOCYTES IN BLOOD BY AUTOMATED COUNT 0.7 0 - 2 07/08 Specimen Type: BLOOD No comment entered. Ordering Provider: TETE PACHECO Report Released Date/Time: Jun 23, 2023 02:55 PM Reporting Lab: [facility] [address] THE [address] Performing Lab: [facility] [facility] [address] THE [address] [facility] CBC (DIFF&PLT ) NUCLEATED ERYTHROCYTE S/100 LEUKOCYTES [RATIO] IN BLOOD 0.0 /100{W BCs} 0 - 6 07/08 Specimen Type: BLOOD No comment entered. Ordering Provider: TETE PACHECO Report Released Date/Time: Jun 23, 2023 02:55 PM Reporting Lab: [facility] [address] THE [address] Performing Lab: [facility] [address] [place] [address] [facility] CBC (DIFF&PLT ) ERYTHROCYTE DISTRIBUTIO N WIDTH [RATIO] BY AUTOMATED COUNT 12.6 11.5 - 14.5 07/08 Specimen Type: BLOOD No comment entered. Ordering Provider: TETE PACHECO Report Released Date/Time: Jun 23, 2023 02:55 PM Reporting Lab: [facility] [address] THE [place] [address] Performing Lab: [facility] [address] [place] [address] [facility] CBC (DIFF&PLT ) LYMPHOCYTES [#/VOLUME] IN BLOOD BY AUTOMATED COUNT 2.06 10*3/u L 1.2 - 3.6 07/08 Specimen Type: BLOOD No comment entered. Ordering Provider: TETE PACHECO Report Released Date/Time: Jun 23, 2023 02:55 PM Reporting Lab: [facility] [address] [place] [address] Performing Lab: [facility] [address] THE [place] [address] [facility] CBC (DIFF&PLT ) MONOCYTES [#/VOLUME] IN BLOOD BY AUTOMATED COUNT 0.63 10*3/u L 0.14 - 0.76 07/08 Specimen Type: BLOOD No comment entered. Ordering Provider: TETE PACHECO Report Released Date/Time: Jun 23, 2023 02:55 PM Reporting Lab: [facility] [address] THE [place] [address] Performing Lab: [facility] [address] [place] [address] [facility] CBC (DIFF&PLT ) LYMPHOCYTES /100 LEUKOCYTES IN BLOOD 34.1 25 - 33 07/08 H Specimen Type: BLOOD No comment entered. Ordering Provider: TETE PACHECO Report Released Date/Time: Jun 23, 2023 02:55 PM Reporting Lab: [facility] [address] THE [place] [address] Performing Lab: [facility] [address] [place] [address] [facility] CBC (DIFF&PLT ) MONOCYTES/1 00 LEUKOCYTES IN BLOOD 10.4 3 - 7 07/08 H Specimen Type: BLOOD No comment entered. Ordering Provider: TETE PACHECO Report Released Date/Time: Jun 23, 2023 02:55 PM Reporting Lab: [facility] [address] THE [place] [address] Performing Lab: [facility] [address] [place] [address] [facility] CBC (DIFF&PLT ) NEUTROPHILS /100 LEUKOCYTES IN BLOOD 51.7 54 - 65 07/08 L Specimen Type: BLOOD No comment entered. Ordering Provider: TETE PACHECO Report Released Date/Time: Jun 23, 2023 02:55 PM Reporting Lab: [facility] [address] THE [place] [address] Performing Lab: [facility] [address] [place] [address] [facility] CBC (DIFF&PLT ) NEUTROPHILS [#/VOLUME] IN BLOOD BY AUTOMATED COUNT 3.12 10*3/u L 1.8 - 7.8 07/08 Specimen Type: BLOOD No comment entered. Ordering Provider: TETE PACHECO Report Released Date/Time: Jun 23, 2023 02:55 PM Reporting Lab: [facility] [address] THE [place] [address] Performing Lab: [facility] [address] [place] [address] [facility] CBC (DIFF&PLT ) EOSINOPHILS [#/VOLUME] IN BLOOD BY AUTOMATED COUNT 0.17 10*3/u L 0.0 - 0.3 07/08 Specimen Type: BLOOD No comment entered. Ordering Provider: TETE PACHECO Report Released Date/Time: Jun 23, 2023 02:55 PM Reporting Lab: [facility] [address] THE [place] [address] Performing Lab: [facility] [address] [place] [address] [facility] CBC (DIFF&PLT ) BASOPHILS [#/VOLUME] IN BLOOD BY AUTOMATED COUNT 0.04 10*3/u L 0.0 - 0.2 07/08 Specimen Type: BLOOD No comment entered. Ordering Provider: TETE PACHECO Report Released Date/Time: Jun 23, 2023 02:55 PM Reporting Lab: [facility] [address] THE [place] [address] Performing Lab: [facility] [address] [place] [address] [facility] CBC (DIFF&PLT ) ERYTHROCYTE DISTRIBUTIO N WIDTH [ENTITIC VOLUME] BY AUTOMATED COUNT 44.3 fL 39.0 - 52.2 07/08 Specimen Type: BLOOD No comment entered. Ordering Provider: TETE PACHECO Report Released Date/Time: Jun 23, 2023 02:55 PM Reporting Lab: [facility] [address] [place] [address] Performing Lab: [facility] [address] [place] [address] [facility] CBC (DIFF&PLT ) NUCLEATED ERYTHROCYTE S [#/VOLUME] IN BLOOD BY AUTOMATED COUNT 0.00 10*3/u L 0 - 0.2 07/08 Specimen Type: BLOOD No comment entered. Ordering Provider: TETE PACHECO Report Released Date/Time: Jun 23, 2023 02:55 PM Reporting Lab: [facility] [address] THE [place] [address] Performing Lab: [facility] [address] [place] [address] [facility] CBC (DIFF&PLT ) IMMATURE GRANULOCYTE S [#/VOLUME] IN BLOOD BY AUTOMATED COUNT 0.02 10*3/u L 0.00 - 0.2 07/08 Specimen Type: BLOOD No comment entered. Ordering Provider: TETE PACHECO Report Released Date/Time: Jun 23, 2023 02:55 PM Reporting Lab: [facility] [address] [place] [address] Performing Lab: [facility] [address] [place] [address] [facility] CBC (DIFF&PLT ) IMMATURE GRANULOCYTE S/100 LEUKOCYTES IN BLOOD 0.3 0.00 - 2.00 07/08 Specimen Type: BLOOD No comment entered. Ordering Provider: TETE PACHECO Report Released Date/Time: Jun 23, 2023 02:55 PM Reporting Lab: [facility] [address] [place] [address] Performing Lab: [facility] [address] [place] [address] [facility] COMPREHEN SIVE METABOLIC PANEL UREA NITROGEN [MASS/VOLUM E] IN SERUM OR PLASMA 13 mg/dL 9 - 07/08 Specimen Type: PLASMA Comment: [...] 10, 2022 10:59 AM Reporting Lab: [facility] [address] THE [place] [address] Performing Lab: [facility] [address] [place] [address] [facility] COMPREHEN SIVE METABOLIC PANEL SODIUM [MOLES/VOLU ME] IN SERUM OR PLASMA 139 mmol/L 135 - 145 07/08 Specimen Type: PLASMA [...] 10, 2022 10:59 AM Reporting Lab: [facility] [address] THE [place] [phone] Performing Lab: [facility] [address] THE [place] [phone] [facility] COMPREHEN SIVE METABOLIC PANEL CHLORIDE [MOLES/VOLU ME] IN SERUM OR PLASMA 105 mmol/L 98 - 108 07/08 Specimen Type: PLASMA [...] 10, 2022 10:59 AM Reporting Lab: [facility] [address] THE [place] [address] Performing Lab: [facility] [address] [place] [address] [facility] COMPREHEN SIVE METABOLIC PANEL CARBON DIOXIDE, TOTAL [MOLES/VOLU ME] IN SERUM OR PLASMA 25 mmol/L 23 - 32 07/08 Specimen Type: PLASMA [...] 10, 2022 10:59 AM Reporting Lab: [facility] [address] [place] [address] Performing Lab: [facility] [address] [place] [address] [facility] COMPREHEN SIVE METABOLIC PANEL PROTEIN [MASS/VOLUM E] IN SERUM OR PLASMA 7.4 g/dL 6.0 - 8.2 07/08 Specimen Type: PLASMA [...] 10, 2022 10:59 AM Reporting Lab: [facility] [address] [place] [address] Performing Lab: [facility] [address] [place] [address] [facility] COMPREHEN SIVE METABOLIC PANEL ALBUMIN [MASS/VOLUM E] IN SERUM OR PLASMA 4.5 g/dL 3.5 - 5.0 07/08 Specimen Type: PLASMA [...] es </= 400 mg/dL. Ordering Provider: CESIA ANDRESW Report Released Date/Time: Jul 10, 2022 10:59 AM Reporting Lab: [facility] [address] [place] [address] Performing Lab: [facility] [address] [place] [address] [facility] COMPREHEN SIVE METABOLIC PANEL BILIRUBIN.T OTAL [MASS/VOLUM E] IN SERUM OR PLASMA 0.6 mg/dL 0.0 - 1.3 07/08 Specimen Type: PLASMA [...] 10, 2022 10:59 AM Reporting Lab: [facility] [address] [place] [address] Performing Lab: [facility] [address] COMPREHEN SIVE METABOLIC PANEL ALKALINE PHOSPHATASE [ENZYMATIC ACTIVITY/VO LUME] IN SERUM OR PLASMA 115 U/L 0 - 125 07/08 Specimen Type: PLASMA [...] 10, 2022 10:59 AM Reporting Lab: [facility] [address] [place] [address] Performing Lab: [facility] [address] COMPREHEN SIVE METABOLIC PANEL ASPARTATE AMINOTRANSF ERASE [ENZYMATIC ACTIVITY/VO LUME] IN SERUM OR PLASMA 34 U/L 0 - 45 07/08 Specimen Type: PLASMA [...] 10, 2022 10:59 AM Reporting Lab: [facility] [address] [facility] [address] Performing Lab: [facility] [address] [facility] [address] [facility] COMPREHEN SIVE METABOLIC PANEL ALANINE AMINOTRANSF ERASE [ENZYMATIC ACTIVITY/VO LUME] IN SERUM OR PLASMA BY NO ADDITION OF P-5'-P 36 U/L 0 - 40 07/08 Specimen Type: PLASMA [...] 10, 2022 10:59 AM Reporting Lab: [facility] [address] [facility] [address] Performing Lab: [facility] [address] [facility] [address] [facility] COMPREHEN SIVE METABOLIC PANEL ANION GAP 3 IN SERUM OR PLASMA 9 mmol/L 5 - 15 07/08 Specimen Type: PLASMA Comment: eGFR calculated [...] 10, 2022 10:59 AM Reporting Lab: [facility] [address] [facility] [address] Performing Lab: [facility] [address] [facility] [address] [facility] COMPREHEN SIVE METABOLIC PANEL POTASSIUM [MOLES/VOLU ME] IN SERUM OR PLASMA 4.1 mmol/L 3.5 - 5.0 07/08 Specimen Type: PLASMA [...] 10, 2022 10:59 AM Reporting Lab: [facility] [address] [facility] [address] Performing Lab: [facility] [address] [facility] [address] [facility] COMPREHEN SIVE METABOLIC PANEL CALCIUM [MASS/VOLUM E] IN SERUM OR PLASMA 9.7 mg/dL 8.4 - 10.5 07/08 Specimen Type: PLASMA [...] 10, 2022 10:59 AM Reporting Lab: [facility] [address] [facility] [address] Performing Lab: [facility] [address] [facility] [address] [facility] COMPREHEN SIVE METABOLIC PANEL CREATININE [MASS/VOLUM E] IN SERUM OR PLASMA 1.2 mg/dL 0.5 - 1.2 07/08 Specimen Type: PLASMA [...] 10, 2022 10:59 AM Reporting Lab: [facility] [address] [facility] [address] Performing Lab: [facility] [address] [facility] [address] [facility] COMPREHEN SIVE METABOLIC PANEL GLUCOSE [MASS/VOLUM E] IN SERUM OR PLASMA 121 mg/dL 65 - 99 07/08 H Specimen Type: [...] 10, 2022 10:59 AM Reporting Lab: [facility] [address] THE [place] [phone] Performing Lab: [facility] [address] [facility] [address] [facility] COMPREHEN [facility] METABOLIC PANEL GLOMERULAR FILTRATION RATE/1.73 SQ M.PREDICTED [VOLUME RATE/AREA] IN SERUM, PLASMA OR BLOOD BY CREATININE- BASED FORMULA (CKD-EPI 2020) 61 mL/min 07/08 Specimen Type: PLASMA Comment: eGFR calculated [...] 10, 2022 10:59 AM Reporting Lab: [facility] [address] THE [place] [phone] Performing Lab: [facility] [address] [facility] [address] [facility] HEMOGLOBI N %A1C PROFILE HEMOGLOBIN A1C/HEMOGLO BIN.TOTAL IN BLOOD 5.7 07/08 Specimen Type: BLOOD [...] 23, 2023 02:55 PM Reporting Lab: [facility] [address] [facility] [address] [place] [address] Performing Lab: [facility] [address] [place] [phone] [facility] LIPID PANEL CHOLESTEROL [MASS/VOLUM E] IN SERUM OR PLASMA 131 mg/dL 0 - 199 07/08 Specimen Type: PLASMA [...] 10, 2022 10:59 AM Reporting Lab: [facility] [address] [place] [address] Performing Lab: [facility] [address] [place] [phone] [facility] LIPID PANEL TRIGLYCERID E [MASS/VOLUM E] IN SERUM OR PLASMA 294 mg/dL 0 - 149 07/08 H Specimen Type: [...] 10, 2022 10:59 AM Reporting Lab: [facility] [address] Performing Lab: [facility] [address] [facility] [address] [facility] LIPID PANEL CHOLESTEROL IN LDL [MASS/VOLUM E] IN SERUM OR PLASMA BY CALCULATION 40 mg/dL <129 - 129 07/08 Specimen Type: PLASMA [...] 10, 2022 10:59 AM Reporting Lab: [facility] [address] [facility] [address] Performing Lab: [facility] [address] [facility] [address] [facility] LIPID PANEL CHOLESTEROL IN HDL [MASS/VOLUM E] IN SERUM OR PLASMA 32 mg/dL 40 07/08 L Specimen Type: PLASMA Comment: [...] 10, 2022 10:59 AM Reporting Lab: [facility] [address] [facility] [address] Performing Lab: [facility] [address] [facility] [address] [facility] LIPID PANEL CHOLESTEROL IN LDL [MASS/VOLUM E] IN SERUM OR PLASMA BY DIRECT ASSAY cancmg /dL <129 - 129 07/08 Specimen Type: PLASMA [...] 10, 2022 10:59 AM Reporting Lab: [facility] [address] [place] [address] Performing Lab: [facility] [address] [place] [address] [facility] MICROALBU [place](M AU) CREATININE [MASS/VOLUM E] IN URINE 67.1 mg/dL 07/08 Specimen Type: URINE Comment: ANUP/CR RATIO not calculated when ANUP <12.0 or U.CREAT <15 Ordering Provider: TETE PACHECO Report Released Date/Time: Jun 23, 2023 02:55 PM Reporting Lab: [facility] [address] [place] [address] Performing Lab: [facility] [address] [place] [address] [facility] MICROALBU [place](M AU) PROTEIN [MASS/VOLUM E] IN URINE 6 mg/dL <12 - 12 07/08 Specimen Type: URINE Comment: ANUP/CR RATIO not calculated when ANUP <12.0 or U.CREAT <15 Ordering Provider: TETE PACHECO Report Released Date/Time: Jun 23, 2023 02:55 PM Reporting Lab: [facility] [address] [place] [phone] Performing Lab: [facility] [address] [place] [address] [facility] MICROALBU [place](M AU) MICROALBUMI N/CREATININ E [MASS RATIO] IN URINE cancmg /g{cre at} 07/08 Specimen Type: URINE Comment: ANUP/CR RATIO not calculated when ANUP <12.0 or U.CREAT <15 Ordering Provider: TETE PACHECO Report Released Date/Time: Jun 23, 2023 02:55 PM Reporting Lab: [facility] [address] [place] [address] Performing Lab: [facility] [address] [place] [address] [facility] MICROALBU [place](M AU) MICROALBUMI N [MASS/VOLUM E] IN URINE <12.0m g/L 07/08 Specimen Type: URINE Comment: ANUP/CR RATIO not calculated when ANUP <12.0 or U.CREAT <15 Ordering Provider: TETE PACHECO Report Released Date/Time: Jun 23, 2023 02:55 PM Reporting Lab: [facility] [address] [place] [address] Performing Lab: [facility] [address] [facility] [address] PSA PROSTATE SPECIFIC AG [MASS/VOLUM E] IN SERUM OR PLASMA 2.960 ng/mL 0 - 4 07/08 Specimen Type: PLASMA [...] 23, 2023 03:42 PM Reporting Lab: [facility] [address] [place] [address] Performing Lab: [facility] [address] [place] [address] [facility] TOTAL,VIT D VITAMIN D+METABOLIT ES [MASS/VOLUM E] IN SERUM OR PLASMA 33.4 ng/mL 07/08 Specimen Type: SERUM Comment: TOTAL,VIT D interpretat ion of results: Vitamin D deficiency: < or = 20 ng/mL Vitamin D insuficienc y: 21 - 29 ng/mL Preferred level: > or = 30 ng/mL Toxicity: > 100 ng/mL Test performed on Shawanda chemistry analyzer (573) Ordering Provider: TETE PACHECO Report Released Date/Time: Jun 23, 2023 02:55 PM Reporting Lab: [facility] [address] [place] [address] Performing Lab: [facility] [address] TSH-G,LC, J,T THYROTROPIN [UNITS/VOLU ME] IN SERUM OR PLASMA 2.200 u[IU]/ mL 0.27 - 4.2 07/08 Specimen Type: PLASMA [...] 10, 2022 10:59 AM Reporting Lab: [facility] [address] [facility] [address] Performing Lab: [facility] [address] [facility] [address] [facility] Vital Signs Combined list of inpatient [...] ADM Date DC Date Status Disposition Source [facility] Outpatient Encounter [id number] VALDES,R ALPH A 09/16 [facility] Outpatient Encounter [id number] 10/09 [facility] HC PRO PHONE CALL 11-20 MIN [id number] Diagnos is: ICD-10- CM R05.1 Acute cough<b r/> Adrienne COVINGTON M 10/09 [facility] Outpatient Encounter [id number] Diagnos is: ICD-10- CM U07.1 COVID-1 9
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<br/ > SASHA WALSH 11/21 [facility] Outpatient Encounter [id number] 11/21 [facility] Encounter [id number] 11/27 VIK COLBY [facility] Outpatient Encounter [id number] 11/27 [facility] Outpatient Encounter [id number] 12/01 [facility] Outpatient Encounter [id number] 12/09 [facility] PT EDUCATION NOC INDIVID [id number] Diagnos is: ICD-10- CM 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
CAYCI,CENK 01/21 [facility] ELECTROCAR DIOGRAM TRACING [id number] Diagnos is: ICD-10- CM Z01.810 Encount er for preproc edural cardiov ascular examina tion
SIMONA ZAVALAO REL 02/05 [facility] IS [facility] OFFICE O/P EST MOD 30-39 MIN [id number] Diagnos is: ICD-10- CM Z01.818 Encount er for other preproc edural examina tion
CAROL RIOS 02/05 [facility] IS [facility] Outpatient Encounter [id number] Diagnos is: ICD-10- CM Z01.818 Encount er for other preproc edural examina tion
REVA GARDINER 02/18 [facility] N[facility] [place] Outpatient Encounter [id number] TISHA MILLER 02/18 [facility] [place] [facility] Outpatient Encounter [id number] SYSTEM,[facility] -[facility] 02/26 [facility] IS [facility] OFFICE O/P NEW LOW 30-44 MIN [id number] Diagnos is: ICD-10- CM Z01.818 Encount er for other preproc edural examina tion
SHU SYLVESTER 02/26 [facility] Outpatient Encounter [id number] Atif ROSENBERG 02[facility]26 [facility] Outpatient Encounter [id number] SYSTEM,CIS -ARK 02/26 [place] [facility] Outpatient Encounter [phone] 02/26 [facility] Outpatient Encounter [id number] SHU SYLVESTER E E 02/26 [facility] REVISION OF EYELID [id number] [phone] Diagnos is: ICD-10- CM 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
CAYCOLTON,CENK 02/26 [facility] REVISION OF UPPER EYELID [id number] TIFFANIE HOUSTON 02/26 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
SHU SYLVESTER E E 02/26 [facility] Outpatient Encounter [id number] 02/26 [facility] POSTOP FOLLOW-UP VISIT [id number] [phone] Diagnos is: ICD-10- CM Z48.817 Encntr for surgica l aftcr fol surgery on the skin, subcu<b r/> ME FELIX DOUGLAS 03/11 [facility] POSTOP FOLLOW-UP VISIT [id number] [phone] Diagnos is: ICD-10- CM Z48.817 Encntr for surgica l aftcr fol surgery on the skin, subcu<b r/> ZORTMAN,ME LODY 04/08 [facility] [place] Outpatient Encounter [id number] 05/26 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 OFFICE O/P EST MOD 30-39 MIN [id number] Diagnos is: ICD-10- CM R31.9 Hematur ia, 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
TEENA KUMAR 07/[address] [facility] Outpatient Encounter [id number] VIVEK VIDALES 07/21 [facility] [facility] PRO PHONE CALL 5-10 MIN [id number] Diagnos is: ICD-10- CM G47.33 Obstruc tive sleep apnea (adult) ([facility])
CHANI CAMPOVERDE 08/28 [facility]. [place] Outpatient Encounter [id number] TEENA KUMAR JOSE 08/31 [facility] N. [facility] Outpatient Encounter [id number] TEENA KUMAR JOSE 08/31 [facility] Outpatient Encounter [id number] TEENA KUMAR JOSE 08/31 N. [facility] N. [facility] Outpatient Encounter [id number] 09/01 N[facility] N[facility] OFFICE O/P NEW MOD 45 MIN [id number] Diagnos is: ICD-10- CM R31.0 Gross hematur ia
DYLAN,JE SHARI NETTLES 09/02 N[facility] N. [facility] Outpatient Encounter [id number] 09/02 [facility] N. [facility] Outpatient Encounter [id number] 09/02 N[facility] N. [facility] Outpatient Encounter [id number] ASTRID HACKETT 09/02 N[facility] N[facility] Outpatient Encounter [id number] ASTRID HACKETT 09/02 N[facility] N[facility] Outpatient Encounter [id number] ASTRID HACKETT 09/03 N[facility] N[facility] Outpatient Encounter [id number] TEENA KUMAR 09/03 N[facility] N[facility] Outpatient Encounter [id number] 09/08 N[facility] N. [facility] Outpatient Encounter [id number] ASTRID HACKETT 09/08 N[facility] N. [facility] Outpatient Encounter [id number] ASTRID HACKETT 09/08 N[facility] N[facility] Outpatient Encounter [id number] Diagnos is: ICD-10- CM G47.33 Obstruc tive sleep apnea (adult) ([facility])
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
JENNYFER,WAYNE GABRIELA A 09/11 [facility] PR[facility]URE CPAP [id number] Diagnos is: ICD-10- CM G47.33 Obstruc tive sleep apnea (adult) ([facility])
JULIANJaquelinRADHA STAUFFERIDAD 10/13 [facility] Outpatient Encounter [id number] JOHNSON,FIDE Swan 10/14 [facility] SPECIAL SUPPLIES PHYS/QHP [id number] Diagnos is: ICD-10- CM G47.33 Obstruc tive sleep apnea (adult) ([facility])
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
KAPHING,BR CAROLINA S 01/12 [facility] OFFICE O/P EST MOD 30 MIN [id number] Diagnos is: ICD-10- CM H02.834 Dermato chalasi s of left upper eyelid< br/> CAYBERTA SEGURA 01/12 [facility] Outpatient Encounter [id number] [facility] 01/12 [facility] [facility] Outpatient Encounter [id number] 01/21 [facility] N. 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
AKSHAT PARK 02/17 [facility]. [place] [facility] Procedures Combined list of: 1) Procedures from Department of Veterans Affairs facilities going back up to thelast 18 months, not all [place] non-surgical procedures are included; 2) All procedures from the Department of Defense facilities. Procedure Procedure Type Code Date Perfomer Comments Sourc e Bilateral upper blepharoplasty, transpalpebral browpexy with endotine, Levator advancement, tarsal strip/canthoplasty REVISION OF UPPER EYELID [id number] [facility] Social History Combined list of available smoking, tobacco, and other social history from Department of Defense and Veterans Affairs facilities. Social History Type Response Date Comment Sourc e Tobacco smoking status [facility] VA-TOBACCO FORMER USER 07/13/2023 [facility] History of tobacco use VA-TOBACCO QUIT 5 TO < 15 YRS 07/13/2023 [facility] History of tobacco use VA-TOBACCO FORMER USER 07/10/2022 [facility] History of tobacco use VA-TOBACCO QUIT 15 YRS OR MORE 07/11/2021 [facility] History of tobacco use VA-TOBACCO QUIT 15 YRS OR MORE 07/05/2020 [facility] History of tobacco use PRIOR TOBACCO USE CESSATION DATE 09/01/2017 Rinku AMARAL/Bowen Kaur [facility] History of tobacco use TOBACCO PACK YEARS 08/31/2017 [facility] History of tobacco use PRIOR TOBACCO USE CESSATION DATE 10/24/2016 Rinku AMARAL/Bowen Kaur [facility] History of tobacco use TOBACCO PACK YEARS 10/23/2016 [facility] History of tobacco use PRIOR TOBACCO USE CESSATION DATE 07/09/2016 Rinku AMARAL/Bowen Kaur [facility] History of tobacco use TOBACCO PACK YEARS 07/09/2016 [facility] History of tobacco use PRIOR TOBACCO USE CESSATION DATE 07/09/2015 Rinku AMARAL/Bowen Kaur [facility] History of tobacco use TOBACCO PACK YEARS 07/09/2015 [facility] History of tobacco use CURRENT TOBACCO USE 07/12/2014 [facility] History of tobacco use CURRENT TOBACCO USE 07/07/2013 [facility] Plan of Care List of future care activities from [facility] facilities. Additional future care activities may be listed in the Assessment and Plan section. Date/Time Care Activity Care Activity Detail Facili ty 03/03/2024 AMBULATORY - SURGERY AMBULATORY - SURGERY [facility] 03/16/2024 AMBULATORY - SURGERY AMBULATORY - SURGERY [facility] 07/05/2024 AMBULATORY - NONE AMBULATORY - NONE [facility] 07/12/2024 AMBULATORY - MEDICINE AMBULATORY - MEDICI [facility] 08/29/2024 AMBULATORY - NONE AMBULATORY - NONE [facility] Advance Directives List of completed, amended, or rescinded Advance Directives on record at [facility] facilities. An actual copy of the Directive is not included. Date Advance Directive Provider Source 07/13/2023 ADVANCE DIRECTIVE NO TIFICATION AND SCREENING ROSA M SUAZO [facility] 07/10/2022 ADVANCE DIRECTIVE NO TIFICATION AND SCREENING ASTRID BHAT [facility] 07/05/2020 ADVANCE DIRECTIVE NO TIFICATION AND SCREENING DIPTI GILES [facility] 07/01/2019 ADVANCE DIRECTIVE DISCUSSION BETTY BROTHERS F [facility] 06/30/2018 ADVANCE DIRECTIVE DISCUSSION BETTY BROTHERS F [facility] 09/01/2017 ADVANCE DIRECTIVE DISCUSSION BETTY BROTHERS F [facility] 10/24/2016 ADVANCE DIRECTIVE DISCUSSION BETTY BROTHERS F [facility] 07/09/2016 ADVANCE DIRECTIVE DISCUSSION BETTY BROTHERS F [facility] 07/22/2013 ADVANCE DIRECTIVE SUZANNA HOOK [facility]
--- OUTSIDE RECORDS SUMMARY | 2024-03-03 02:47 | XMS_ITS | Encounter Summary ---
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 This section includes the names of all active insurance providers for the patient. Insurance Provider Type of Coverage Plan Name Start of Policy Coverage End of Policy Coverage Group Number Member ID Insurance Provider's Telephone Number Policy Ibanez's Name Patient's Relationship to Policy Ibanez CAREMARK ([id number]) PRESCRIPT ION GEHA Jul 21, 2017 [id number] WONG QUINTERO PATIENT CAREMARK ([id number]) PRESCRIPT ION GEHA Jul 21, 2017 [id number] WONG QUINTERO [place] PATIENT CAREMARK ([id number]) PRESCRIPT ION GEHA Aug 24, 2011 [id number] [phone] WONG QUINTERO PATIENT GEHA (SECONDARY ) PREFERRED PROVIDER ORGANIZAT ION (PPO) GEHA Jul 21, 2017 [id number] [phone] WONG QUINTERO PATIENT GEHA (SECONDARY ) PREFERRED PROVIDER ORGANIZAT ION (PPO) GEHA MC A&B PRIMA RY Aug 24, 2011 [id number] WONG QUINTERO PATIENT GEHA FE DENTAL ONLY DENTAL INSURANCE HUGO PEREZ CTION DENT Jul 21, 2017 [id number] [phone] WONG SÁNCHEZ PATIENT [facility] FE DENTAL ONLY DENTAL INSURANCE HIGH OPTIO N DENTA L Jul 21, 2017 [id number] WONG QUINTERO PATIENT [facility] PREFERRED PROVIDER ORGANIZAT ION (PPO) DO NOT USE Aug 24, 2011 [id number] WONG QUINTERO PATIENT MEDICARE (WNR) MEDICARE (M) PART A Apr 24, 2015 PART A [id number] WONG QUINTERO PATIENT MEDICARE (WNR) MEDICARE (M) PART B Apr 24, 2015 PART B [id number] WONG QUINTERO PATIENT MEDICARE (WNR) MEDICARE (M) PART A Apr 24, 2015 PART A [id number] WONG QUINTERO PATIENT MEDICARE (WNR) MEDICARE (M) PART B Apr 24, 2015 PART B [id number] WONG QUINTERO PATIENT Selected Encounter This section includes the information on record at [place] for the Encounter. Date/Time Encounter Type Encounter Description Reason Provider Source January 13, 2024 08:30 AM OFFICE O/P EST MOD 30 MIN PLASTIC SURGERY ICD-10-CM H02.834 Dermatochalasis of left upper eyelid BERTA HERNANDEZ [facility] Encounter Template Text not used by [place] Assessments - Encounter Diagnoses This section includes the primary and secondary diagnoses documented for the Encounter. Date/Time Primary/Secondary Diagnosis Diagnosis Name Provider Source January 22, 2024 09:02 AM PRIMARY Dermatochalasis of left upper eyelid BERTA HERNANDEZ [facility] Plan of Treatment: Future Appointments (+ 6 months) and Future Tests (+/- 45 days) The Plan of Treatment section includes future care activities for the patient from all [place] treatmentfacilities. This section includes future appointments and future orders which are active, pending or scheduled. Future Appointments This section includes appointments that were scheduled to occur 6 months from the date of the Encounter, up to a maximum of 20 appointments. The data comes from all [place] treatment facilities. Appointment Date/Time Appointment Type Appointme nt Facility Name Feb 18, 2024 01:00 PM AMBULATORY - SUR[place] Mar 03, 2024 09:30 AM AMBULATORY - SURGERY [facility] Mar 16, 2024 10:30 AM AMBULATORY - SURGERY [facility] Jul 05, 2024 08:00 AM AMBULATORY - NONE [facility] Jul 12, 2024 10:00 AM AMBULATORY - MEDICINE [facility] Advance Directives: All historical and current Section Date Range: From patient's date of to the date document was created. This section includes ALL of a patient's completed or amended [place] Advance and Rescinded Directives. The entries below indicate that a directive exists for the patient, but an actual copy is not included with this document. The data comes from all [facility]. Date Advance Directives Provider Source Jul 13, 2023 ADVANCE DIRECTIVE NO TIFICATION AND SCREENING ROSA M SUAZO [facility] Jul 10, 2022 ADVANCE DIRECTIVE NO TIFICATION AND SCREENING ASTRID BHAT [facility] Jul 05, 2020 ADVANCE DIRECTIVE NO TIFICATION AND SCREENING DIPTI GILES [facility] Jul 01, 2019 ADVANCE DIRECTIVE DISCUSSION FRAY,BETTY F [facility] Jun 30, 2018 ADVANCE DIRECTIVE DISCUSSION FRAY,BETTY F [facility] Sep 01, 2017 ADVANCE DIRECTIVE DISCUSSION FRAY,BETTY F [facility] Oct 24, 2016 ADVANCE DIRECTIVE DISCUSSION FRAY,BETTY F [facility] Jul 09, 2016 ADVANCE DIRECTIVE DISCUSSION FRAY,BETTY F [facility] Jul 22, 2013 ADVANCE DIRECTIVE SUZANNA HOOK [facility] Encounter Notes: All associated encounter notes This section contains the clinical notes associated to the Encounter. Date/Time Encounter Note(s) Provider Source Mar 02, 2024 08:55 AM ACCOUNTING OF DISC LOSURES NOTE: LOCAL TITLE: STATE PRESCRIPTION DRUG MONITORING PROGRAM STANDARD TITLE: ACCOUNTING OF DISCLOSURES NOTE DATE OF NOTE: MAR 02, 2024@08:55 ENTRY DATE: MAR 02, 2024@08:55:38 AUTHOR: BERTA HERNANDEZ EXP COSIGNER: URGENCY: STATUS: COMPLETED Documentation of contact with State Prescription Drug Monitoring Program (PDMP) The clinical justification for this PDMP query is to review controlled substances prescribed outside of the [facility], and any additional information that may become available, as an important component of standard clinical care, and in accordance with [facility] policy. Patient information was shared with [facility]. [facility] findings: No prescription(s) for controlled substances outside the [facility] were found in the last 90 days. I reviewed the [place] Stratification Tool for Opioid Risk Mitigation. Patient-specific risk factors, risk of opioids, and goals of opioid therapy have been discussed with the patient/ caregiver. /jose HERNANDEZ MD STAFF PLASTIC SURGEON Signed: 03/02/2024 08:56 BERTA HERNANDEZ [facility] January 13, 2024 09:21 AM PLASTIC SURGERY OU TPATIENT NOTE: LOCAL TITLE: PLASTIC SURGERY CLINIC NOTE STANDARD TITLE: PLASTIC SURGERY OUTPATIENT NOTE DATE OF NOTE: JANUARY 13, 2024@09:21 ENTRY DATE: JANUARY 13, 2024@09:21:22 AUTHOR: BERTA HERNANDEZ EXP COSIGNER: URGENCY: STATUS: COMPLETED 73-year-old male, 1 year status post bilateral upper blepharoplasty, lateral canthoplasty, and transpalpebral brow pexy. He is happy with the outcome. There is slight asymmetry in terms of lateral hooding on the left side, which is affecting his vision on the lateral gaze. I over the minor revision for that. Which will be a excision of skin muscle, combined with lateral retinacular suspension. Could be performed in the minor OR under local anesthesia. Patient agreed. He is on aspirin, and is instructed to stop the aspirin a week prior to the planned surgical procedure. His pictures were taken today. /jose HERNANDEZ MD STAFF PLASTIC SURGEON Signed: 01/13/2024 09:23 BERTA HERNANDEZ [facility]
== END 2024-03-02 08:33 | disposition home or self-care (01) ==
LOC: NFLDREF 03-03 02:45
PROVIDERS: PCP Family Medicine; Referring Provider Family Medicine; Visit Provider Family Medicine
DX: Z01.818 Encounter for other preprocedural examination (principal); I10 Essential (primary) hypertension; I25.10 Atherosclerotic heart disease of native coronary artery without angina pectoris; M16.12 Unilateral primary osteoarthritis, left hip
CPT/HCPCS: 80048

== ENCOUNTER 2024-03-07 06:07 | Day surgery (SDC) | payer MEDICARE, OTHER, SELFPAY ==
[2024-03-07] VITALS (22 sets, daily range): BP systolic 109–146; BP diastolic 59–89; PULSE 77–91; RESP 12–16; TEMP 36.2–36.6; O2SAT 91–99; BMI 33.7
--- OUTSIDE RECORDS SUMMARY | 2024-03-07 06:10 | XMS_ITS | Continuity of Care Document ---
Author Name [facility] Organization [facility] Care Team Providers Care Telecommunications Network Planner Name Role Phone [facility] Unavailable Unavailable Problems Combined list of problems [...] 1 year (ordered by Ms Hernandez). N. [place] Chronic kidney disease stage 3A Active Condition N. [facility] Chronic low back pain Active Condition N. [facility] Coronary atherosclerosis Active Condition N. [facility] Ex-cigarette smoker Active Condition [facility] Exposure to potentially hazardous substance Active Condition [facility] Exposure to potentially hazardous substance ([facility] [id number]) Active Condition Nov 26 4 Entered By: JAIME ROTHMAN Comment: Entered automatically through [facility] Problem List documentation program [facility] Hearing loss Active Condition [facility] Hematuria Active Condition [facility] Herbicide poisoning Active Condition [facility] History of heartburn Active Condition [facility] Hyperlipidemia Active Condition [facility] Hypertension Active Condition [facility] Lower urinary tract symptoms due to benign prostatic hypertrophy [facility] Multiple nodules of lung Active Condition Aug 07, 2020 Entered By: JEFFERSON KOCH Comment: LDCT 08/06/20: Rec repeat in one year (ordered). [facility] Obesity Active Condition [facility] Osteoarthritis Active Condition [facility] Tobacco user Active Condition Jul 05, 2020 Entered By: JEFFERSON KOCH Comment: Quit ~ 2013. [facility] Vitamin D deficiency Active Condition [facility] Diarrhea (SNOMED CT [id number]) Inactive Condition 07/12/2014 [facility] Knee pain Inactive Condition 07/01/2018 [facility] Lactose intolerance Inactive Condition 07/01/2018 [facility] Seborrheic dermatitis Inactive Condition 07/01/2018 [facility] Tinnitus Inactive Condition 07/01/2018 [facility] Diagnosis: ICD-10-CM H02.34 Blepharochalasis left upper eyelid Active Diagnosis [facility] Diagnosis: ICD-10-CM N40.1 Benign prostatic hyperplasia with lower urinary tract symp Active Diagnosis [facility] Diagnosis: ICD-10-CM Z71.9 Counseling, unspecified Active Diagnosis [facility] Diagnosis: ICD-10-CM H02.834 Dermatochalasis of left upper eyelid Active Diagnosis [facility] Diagnosis: ICD-10-CM G47.33 Obstructive sleep apnea (adult) (pediatric) Active Diagnosis [facility] Diagnosis: ICD-10-CM R31.0 Gross hematuria Active Diagnosis [facility] Diagnosis: ICD-10-CM R31.9 Hematuria, unspecified Active Diagnosis [facility] Diagnosis: ICD-10-CM Z71.89 Other specified counseling Active Diagnosis [facility] Diagnosis: ICD-10-CM Z48.817 Encntr for surgical aftcr fol surgery on the skin, subcu Active Diagnosis [facility] Diagnosis: ICD-10-CM 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 [facility] Diagnosis: ICD-10-CM R05.1 Acute cough Active Diagnosis [facility] Medications Combined list of outpatient medications from [...] 2015 Non-VA Document ed by: Beny SANTORO OMO Document ed at: [facility] ORAL ACTIVE CIELO SANTORO MO 2014 [facility] ACETAMINOPH EN 500MG TAB ACETAMIN OPHEN 500MG TAB TAKE TWO TABLETS BY MOUTH EVERY 6 HOURS NEEDED FOR PAIN FOR PAIN Feb 20, 2023 40 Mar 28, 2023 [id number] Feb 26, 2023 THAI DOUGLAS [facility] ORAL 03/28/2023 [id number] Beny DOUGLAS 2022 40 [facility] AMLODIPINE BESYLATE 2.5MG TAB AMLODIPI NE BESYLATE 2.5MG TAB Active TAKE ONE TABLET BY MOUTH EVERY 24 HOURS FOR BLOOD PRESSURE FOR BLOOD PRESSURE Jul 13, 2023 90 Jul 13, 2024 [id number] January 02, 2024 MARI KUMAR [facility] ORAL ACTIVE 07/13/2024 [id number] Carrie KUMAR 2022 90 [facility] AMLODIPINE TAB AMLODIPI NE TAB Non-VA TAKE BY MOUTH Feb 05, 2023 Non-VA Document ed by: TANNER RIOS Document ed at: [facility] ORAL ACTIVE BRENNA RIOS 2022 [facility] ASPIRIN 81MG TAB,CHEWABL E ASPIRIN 81MG TAB,CHEW ABLE Non-VA CHEW ONE TABLET BY MOUTH Feb 05, 2023 Non-VA Document ed by: TANNER RIOS Document ed at: [facility] ORAL ACTIVE BRENNA RIOS 2022 [facility] ASPIRIN 81MG TAB,EC ASPIRIN 81MG TAB,EC Non-VA TAKE ONE TABLET BY MOUTH ONE TIME EACH DAY Sep 01, 2017 Non-VA Document ed by: Beny SANTORO OMO Document ed at: [facility] ORAL ACTIVE CIELO SANTORO [address] [facility] ATORVASTATI N CA 40MG TAB ATORVAST ATIN CA 40MG TAB Non-VA TAKE ONE TABLET BY MOUTH EVERY DAY Feb 05, 2023 Non-VA Document ed by: TANNER RIOS Document ed at: [facility] ORAL ACTIVE BRENNA RIOS 2022 [facility] ATORVASTATI N CA 80MG TAB ATORVAST ATIN CA 80MG TAB Active TAKE ONE-HALF TABLET BY MOUTH ONE TIME EACH DAY FOR CHOLESTE ROL FOR CHOLESTE ROL Jul 13, 2023 45 Jul 13, 2024 [id number] January 02, 2024 MARI KUMAR [facility] ORAL ACTIVE 07/13/2024 [id number] Carrie KUMAR 2022 45 [facility] CARBOXYMETH YLCELLULOSE NA 0.25% SOLN,OPH CARBOXYM ETHYLCEL LULOSE NA 0.25% SOLN,OPH Active INSTILL 2 DROPS IN BOTH EYES TWICE A DAY NEEDED FOR EYE DRYNESS AND IRRITATI ON FOR EYE IRRITATI ON Apr 08, 2023 15 Apr 08, 2024 [id number] May 02, 2023 THAI DOUGLAS [facility] OPHTHA LMIC ACTIVE 04/08/2024 [id number] Beny DOUGLAS 2022 15 [facility] CELECOXIB 200MG CAP CELECOXI B 200MG CAP Active TAKE ONE CAPSULE BY MOUTH TWICE A DAY FOR PAIN FOR PAIN Mar 02, 2024 14 Apr 01, 2024 [id number] Mar 03, 2024 AIDEN HERNANDEZ [facility] ORAL ACTIVE 04/01/2024 [id number] NILESH HERNANDEZ 2023 14 [facility] CEPHALEXIN 500MG CAP CEPHALEX IN 500MG CAP Active TAKE ONE CAPSULE BY MOUTH EVERY 6 HOURS FOR INFECTIO US PROPHYLA XIS FOR INFECTIO US PROPHYLA XIS Mar 02, 2024 12 Apr 01, 2024 [id number] Mar 03, 2024 AIDEN HERNANDEZ [facility] ORAL ACTIVE 04/01/2024 [id number] NILESH HERNANDEZ 2023 12 [facility] CHOLECALCIF FRANCINE 25MCG (1,000UNIT) TAB CHOLECAL CIFEROL 25MCG (1,000UN IT) TAB Non-VA TAKE TWO TABLETS BY MOUTH Feb 05, 2023 Non-VA Document ed by: TANNER RIOS Document ed at: [facility] ORAL ACTIVE BRENNA RIOS 2022 [facility] CYANOCOBALA MIN TAB CYANOCOB ALAMIN TAB Non-VA TAKE Feb 05, 2023 Non-VA Document ed by: TANNER RIOS Document ed at: [facility] ACTIVE BRENNA RIOS 2022 [facility] DEXAMETHASO NE NA PHOSPHATE 0.1% SOLN,OPH DEXAMETH ASONE NA PHOSPHAT E 0.1% SOLN,OPH INSTILL 2 DROPS IN OPERATIV E EYE EVERY 6 HOURS FOR INFLAMMA TION FOR INFLAMMA TION Feb 20, 2023 5 Mar 28, 2023 [id number] Feb 26, 2023 THAI DOUGLAS [facility] OPHTHA LMIC 03/28/2023 [id number] Beny DOUGLAS 2022 5 [facility] DICLOFENAC NA 1% GEL,TOP DICLOFEN AC NA 1% GEL,TOP Active APPLY 4 GRAMS TOPICALL Y FOUR TIMES A DAY NEEDED TO KNEES FOR PAIN (MEASURE DOSE USING SUPPLIED DOSING CARD) Sep 03, 2023 200 Sep 03, 2024 [id number] Sep 07, 2023 MARI KUMAR [facility] TOPICA L ACTIVE 09/03/2024 [id number] Carrie KUMAR 2023 200 [facility] DICLOFENAC NA 1% GEL,TOP DICLOFEN AC NA 1% GEL,TOP Disconti nued APPLY 4 GRAMS TOPICALL Y FOUR TIMES A DAY NEEDED TO KNEES FOR PAIN (MEASURE DOSE USING SUPPLIED DOSING CARD) Jul 10, 2022 200 Jul 11, 2023 [id number] 5D Feb 18, 2023 PEACE ANDREWS [facility] TOPICA L DISCONT INUED 07/11/2023 [id number] CESIA ANDREWS AMA 2021 200 [facility] ERYTHROMYCI N 0.5% OINT,OPH ERYTHROM YCIN 0.5% OINT,OPH Active APPLY A THIN LAYER TO INCISION (S) TO LEFT EYE FOUR TIMES A DAY TO PREVENT INFECTIO N TO PREVENT INFECTIO N Mar 02, 2024 1 Apr 01, 2024 [id number] Mar 03, 2024 AIDEN HERNANDEZ [facility] OPHTHA LMIC ACTIVE 04/01/2024 [id number] NILESH HERNANDEZ 2023 1 [facility] ERYTHROMYCI N 0.5% OINT,OPH ERYTHROM YCIN 0.5% OINT,OPH APPLY A THIN LAYER TO INCISION (S) TO OPERATIV E EYE FOUR TIMES A DAY FOR WOUND CARE FOR WOUND CARE Feb 20, 2023 4 Feb 27, 2024 [id number] Feb 26, 2023 THAI DOUGLAS [facility] OPHTHA LMIC 02/27/2024 [id number] Beny DOUGLAS 2022 4 [facility] FAMOTIDINE 20MG TAB FAMOTIDI NE 20MG TAB Non-VA TAKE ONE TABLET BY MOUTH TWICE A DAY Jul 01, 2019 Non-VA Document ed by: PHIL ROSEN Document ed at: N. [place] ORAL ACTIVE FIDE ROSEN 2018 N. [place] [facility] FAMOTIDINE TAB FAMOTIDI NE TAB Non-VA TAKE Feb 05, 2023 Non-VA Document ed by: TANNER RIOS Document ed at: [facility] ACTIVE BRENNA RIOS 2022 [facility] FINASTERIDE 5MG TAB FINASTER BROOK[place] 5MG TAB Active TAKE ONE TABLET BY MOUTH ONE TIME EACH DAY FOR PROSTATE FOR PROSTATE Feb 18, 2024 90 Feb 18, 2025 [id number] Feb 18, 2024 KERRI PARK [facility] [place] ORAL ACTIVE 02/18/2025 [id number] Masoud PARK 2023 90 N[facility] [place] [facility] FINASTERIDE 5MG TAB FINASTER [place] 5MG TAB Disconti nued TAKE ONE TABLET BY MOUTH ONE TIME EACH DAY FOR PROSTATE FOR PROSTATE Sep 11, 2023 30 Sep 11, 2024 [id number] Jan 29, 2024 CHUY RICHARDSON [facility]. [place] ORAL DISCONT INUED (EDIT) 09/11/2024 [id number] DYLANMasoud CULLENSUMIT NETTLES 2023 30 N. [place] [facility] FISH OIL 1000MG (500MG DHA/EPA) CAP,ORAL FISH OIL 1000MG (500MG DHA/EPA) CAP,ORAL Non-VA TAKE 2 CAPSULES BY MOUTH TWICE A DAY TO LOWER TRIGLYCE RIDES Jul 13, 2023 Non-VA Document ed by: MARI KUMAR Document ed at: [facility] ORAL ACTIVE Carrie KUMAR 2022 [facility] HYDROCHLORO THIAZIDE 25MG/LOSART AN POTASSIUM 100MG TAB HYDROCHL OROTHIAZ BROOKLYN 25MG/LOS JUSTINA POTASSIU M 100MG TAB Disconti nued TAKE 1 TABLET BY MOUTH ONE TIME EACH DAY FOR HIGH BLOOD PRESSURE FOR HIGH BLOOD PRESSURE Feb 23, 2023 60 Feb 24, 2024 [id number] 9B May 06, 2023 KAYLIE WELLS [facility] ORAL DISCONT INUED 02/24/2024 [id number] SAADIA COE 2022 60 [facility] HYDROCHLORO THIAZIDE 25MG/LOSART AN POTASSIUM 100MG TAB HYDROCHL OROTHIAZ BROOKLYN 25MG/LOS JUSTINA POTASSIU M 100MG TAB Disconti nued TAKE 1 TABLET BY MOUTH ONE TIME EACH DAY FOR HIGH BLOOD PRESSURE FOR HIGH BLOOD PRESSURE Nov 21, 2022 60 Nov 22, 2023 [id number] 9A January 16, 2023 YANNI TRIMBLE [facility] [place] ORAL DISCONT INUED 11/22/2023 [id number] YANNI TRIMBLE 2022 60 N. [place] [facility] MARINE LIPID (FISH OIL) CAP,ORAL MARINE LIPID (FISH OIL) CAP,ORAL Non-VA TAKE BY MOUTH Feb 05, 2023 Non-VA Document ed by: TANNER RIOS Document ed at: [facility] ORAL ACTIVE BRENNA RIOS 2022 [facility] METOPROLOL TARTRATE 25MG TAB METOPROL OL TARTRATE 25MG TAB Active TAKE ONE TABLET BY MOUTH EVERY 12 HOURS FOR BLOOD PRESSURE FOR BLOOD PRESSURE Jul 13, 2023 180 Jul 13, 2024 [id number] January 02, 2024 MARI KUMAR [facility] ORAL ACTIVE 07/13/2024 [id number] Carrie KUMAR 2022 180 [facility] METOPROLOL TARTRATE TAB METOPROL OL TARTRATE TAB Non-VA TAKE BY MOUTH TWICE A DAY Feb 05, 2023 Non-VA Document ed by: TANNER RIOS Document ed at: [facility] ORAL ACTIVE BRENNA RIOS 2022 [facility] METRONIDAZO LE 0.75% CREAM,TOP METRONID AZOLE 0.75% CREAM,TO P Non-VA APPLY TOPICALL Y Feb 05, 2023 Non-VA Document ed by: TANNER RIOS Document ed at: [facility] TOPICA L ACTIVE BRENNA RIOS 2022 [facility] NIACIN TAB NIACIN TAB Non-VA TAKE Feb 05, 2023 Non-VA Document ed by: TANNER RIOS Document ed at: [facility] ACTIVE BRENNA RIOS 2022 [facility] NITROGLYCER IN TAB,SUBLING UAL NITROGLY CERIN TAB,SUBL INGUAL Non-VA DISSOLVE UNDER THE TONGUE EVERY 5 MINUTES FOR UP TO 3 DOSES IF NEEDED NEEDED Feb 05, 2023 Non-VA Document ed by: TANNER RIOS Document ed at: [facility] SUBLIN GUAL ACTIVE BRENNA RIOS 2022 [facility] NON VA MED NOT LISTED MISCELLANEO US NON VA MED NOT LISTED MISCELLA NEOUS Non-VA USE Feb 05, 2023 Non-VA Document ed by: TANNER RIOS Document ed at: [facility] ACTIVE BRENNA RIOS 2022 [facility] OXYCODONE HCL 5MG TAB OXYCODON E HCL 5MG TAB Active TAKE ONE TABLET BY MOUTH EVERY 4 HOURS NEEDED FOR PAIN FOR PAIN Mar 02, 2024 30 Apr 01, 2024 [id number] Mar 03, 2024 AIDEN HERNANDEZ [facility] ORAL ACTIVE 04/01/2024 [id number] DAVID,NILESH K 2023 30 [facility] OXYCODONE HCL 5MG TAB OXYCODON E HCL 5MG TAB TAKE ONE TABLET BY MOUTH EVERY 4 HOURS NEEDED FOR PAIN FOR PAIN Feb 20, 2023 30 Mar 28, 2023 [id number] Feb 26, 2023 THAI DOUGLAS [facility] ORAL 03/28/2023 [id number] Beny DOUGLAS 2022 30 [facility] POLYVINYL ALCOHOL 1.4% SOLN,OPH POLYVINY L ALCOHOL 1.4% SOLN,OPH Active INSTILL 2 DROPS IN OPERATIV E EYE EVERY 2 HOURS NEEDED FOR EYE IRRITATI ON FOR EYE IRRITATI ON Mar 02, 2024 60 Mar 03, 2025 [id number] Mar 03, 2024 AIDEN HERANNDEZ [facility] OPHTHA LMIC ACTIVE 03/03/2025 [id number] NILESH HERNANDEZ K 2023 60 [facility] POLYVINYL ALCOHOL 1.4% SOLN,OPH POLYVINY L ALCOHOL 1.4% SOLN,OPH INSTILL 2 DROPS IN BOTH EYES EVERY HOUR NEEDED FOR EYE IRRITATI ON FOR EYE IRRITATI ON Feb 20, 2023 15 Feb 27, 2024 [id number] Mar 25, 2023 THAI DOUGLAS [facility] OPHTHA LMIC 02/27/2024 [id number] Beny DOUGLAS 2022 15 [facility] PROBIOTIC [NON-VA] CAP,ORAL PROBIOTI C [NON-VA] CAP,ORAL Non-VA TAKE Jul 09, 2015 Non-VA Document ed by: Beny SANTORO Document ed at: [facility] ACTIVE CIELO SANTORO [place] 2014 [facility] TAMSULOSIN HCL 0.4MG CAP TAMSULOS IN HCL 0.4MG CAP Active TAKE ONE CAPSULE BY MOUTH ONE TIME EACH DAY FOR URINATIO N FOR URINATIO N Feb 18, 2024 90 Feb 18, 2025 [id number] Feb 18, 2024 KERRI PARK N. [facility] ORAL ACTIVE 02/18/2025 [id number] Masoud PARK 2023 90 N. [facility] TAMSULOSIN HCL 0.4MG CAP TAMSULOS IN HCL 0.4MG CAP Disconti nued TAKE ONE CAPSULE BY MOUTH ONE TIME EACH DAY FOR URINATIO N FOR URINATIO N Sep 11, 2023 30 Sep 11, 2024 [id number] Jan 29, 2024 CHUY RICHARDSON N. [facility] ORAL DISCONT INUED (EDIT) 09/11/2024 [id number] Masoud RICHARDSON 2023 30 N. [place] [facility] TRIAMCINOLO NE 0.1% OINT,TOP TRIAMCIN OLONE 0.1% OINT,TOP Non-VA APPLY TOPICALL Y Feb 05, 2023 Non-VA Document ed by: TANNER RIOS Document ed at: [facility] TOPICA L ACTIVE BRENNA RIOS 2022 [facility] Allergies, Adverse Reactions, Alerts Combined list of allergies from Department of Defense and Veterans Affairs facilities. It does not include entries that were removed or entered in error. Substance Category Reaction Severity Reaction type Status Date Reported Comments Source LISINOPRIL Propensity to adverse reactions to drug (finding) Cough active 3 [facility] Immunizations Combined list of available immunizations from the Department of Defense and Veterans Affairs facilities. Immunization Series Date Given Administered By Site Reaction Lot Number CVX Code Drug Business Information Manager Status Comments Source INFLUENZA, UNSPECIFIED FORMULATION 2022 88 complet ed [facility] INFLUENZA, UNSPECIFIED FORMULATION [address] [facility] COVID-19 (PFIZER), MRNA, LNP-S, PF, 30 MCG/0.3 ML DOSE, FABY-SUCROSE (AGES 12+ YEARS) 4 2021 217 complet ed [facility] COVID-19 (PFIZER), MRNA, LNP-S, PF, 30 MCG/0.3 ML DOSE 3 2020 208 complet ed [facility] INFLUENZA, UNSPECIFIED FORMULATION 2020 88 complet ed [facility] ZOSTER RECOMBINANT 2020 187 complet ed [facility] COVID-19 (PFIZER), MRNA, LNP-S, PF, 30 MCG/0.3 ML DOSE 2 2020 208 complet ed PFR; [id number]; 1 [facility] COVID-19 (PFIZER), MRNA, LNP-S, PF, 30 MCG/0.3 ML DOSE 1 2020 208 complet ed PFR; [id number]; 1 [facility] TDAP 2019 115 complet ed [facility] ZOSTER RECOMBINANT 2019 187 complet ed [facility] INFLUENZA, UNSPECIFIED FORMULATION 2019 [address] [facility] INFLUENZA, INJECTABLE, QUADRIVALENT, PRESERVATIVE FREE 2017 150 complet ed [facility] INFLUENZA, INJECTABLE, QUADRIVALENT, PRESERVATIVE FREE 2016 150 complet ed [facility] INFLUENZA, SEASONAL, INJECTABLE, PRESERVATIVE FREE 2015 140 complet ed [facility] INFLUENZA, SEASONAL, INJECTABLE, PRESERVATIVE FREE 2014 140 complet ed [facility] PNEUMOCOCCAL CONJUGATE PCV 13 2014 133 complet ed [facility] FLU,3 YRS (HISTORICAL) 2013 88 complet ed [facility] Varicella Zoster (HISTORICAL) 2013 complet ed [facility] PNEUMOCOCCAL, UNSPECIFIED FORMULATION 2012 109 complet ed [facility] INFLUENZA, UNSPECIFIED FORMULATION 2012 [address] [facility] INFLUENZA, UNSPECIFIED FORMULATION [address] [facility] TD(ADULT) UNSPECIFIED FORMULATION 2009 139 complet ed [facility] [place] [facility] Results Combined list of recent chemistry, hematology and other laboratory results from Department of Defense and Veterans Affairs, ranging from 15 months to all on record, depending upon the facility. Order Name Results Value Reference Range Date Interpretation Specimen Comments Source CREATINI NE(with eGFR) CREATININE [MASS/VOLU ME] IN SERUM OR PLASMA 1.2 mg/dL 0.5 [...] 21, 2023 01:47 PM Reporting Lab: [facility] [address] [facility] [address] Performing Lab: [facility] [address] [facility] [address] [facility] CREATINI NE(with eGFR) GLOMERULAR FILTRATION RATE/1.73 SQ M.PREDICTE D [VOLUME RATE/AREA] IN SERUM, PLASMA OR BLOOD BY CREATININE -BASED FORMULA (CKD-EPI 2020) 63 mL/min 08/06 Specimen [...] 21, 2023 01:47 PM Reporting Lab: [facility] [address] [facility] [address] Performing Lab: [facility] [address] [place] [phone] [place] [address] TSH-G,LC ,J,T THYROTROPI N [UNITS/VOL UME] IN SERUM OR PLASMA 2.200 u[IU]/mL 0.27 - 4.2 07/08 Specimen Type: PLASMA [...] 10, 2022 10:59 AM Reporting Lab: [facility] [address] [place] [address] Performing Lab: [facility] [address] [place] [address] [facility] LIPID PANEL CHOLESTERO L [MASS/VOLU ME] IN SERUM OR PLASMA 131 mg/dL 0 [...] 10, 2022 10:59 AM Reporting Lab: [facility] [address] [place] [address] Performing Lab: [facility] [address] [place] [address] [facility] LIPID PANEL TRIGLYCERI DE [MASS/VOLU ME] IN SERUM OR PLASMA 294 mg/dL 0 [...] 10, 2022 10:59 AM Reporting Lab: [facility] [address] [facility] [address] Performing Lab: [facility] [address] [facility] [address] [facility] LIPID PANEL CHOLESTERO L IN LDL [MASS/VOLU ME] IN SERUM OR PLASMA BY CALCULATIO N 40 mg/dL <129 - 129 07/08 Specimen [...] 10, 2022 10:59 AM Reporting Lab: [facility] [address] [facility] [address] Performing Lab: [facility] [address] [facility] [phone] [place] [address] LIPID PANEL CHOLESTERO L IN HDL [MASS/VOLU ME] IN SERUM OR PLASMA 32 mg/dL 40 [...] 10, 2022 10:59 AM Reporting Lab: [facility] [address] [facility] [address] Performing Lab: [facility] [address] [facility] [address] [facility] LIPID PANEL CHOLESTERO L IN LDL [MASS/VOLU ME] IN SERUM OR PLASMA BY DIRECT ASSAY cancmg/d L <129 - 129 07/08 Specimen Type: PLASMA [...] 10, 2022 10:59 AM Reporting Lab: [facility] [address] [facility] [address] Performing Lab: [facility] [address] [facility] [address] [facility] B12 COBALAMIN (VITAMIN B12) [MASS/VOLU ME] IN SERUM OR PLASMA 836 pg/mL 240 - 900 07/08 Specimen Type: SERUM No comment entered. Ordering Provider: TETE PACHECO Report Released Date/Time: Jun 23, 2023 02:55 PM Reporting Lab: [facility] [address] [facility] [address] Performing Lab: [facility] [address] [place] [facility] [id number] [facility] TOTAL, T D VITAMIN D+METABOLI EVERARDO [MASS/VOLU ME] IN SERUM OR PLASMA 33.4 ng/mL 07/08 [...] Jun 23, 2023 02:55 PM Reporting Lab: [place] [id number] Performing Lab: [address] HEMOGLOB IN %A1C PROFILE HEMOGLOBIN A1C/HEMOGL OBIN.TOTAL [...] 23, 2023 02:55 PM Reporting Lab: [facility] [address] [facility] [address] Performing Lab: [facility] [address] [place] [facility] [id number] [facility] COMPREHE NSIVE METABOLI C PANEL UREA NITROGEN [MASS/VOLU ME] IN SERUM OR PLASMA 13 mg/dL - 07/08 Specimen Type: PLASMA Comment: eGFR [...] 10, 2022 10:59 AM Reporting Lab: [facility] [address] [place] [address] Performing Lab: [facility] [address] [facility] [address] [facility] COMPREHE NSIVE METABOLI C PANEL SODIUM [MOLES/VOL UME] IN SERUM OR PLASMA 139 mmol/L 135 [...] 10, 2022 10:59 AM Reporting Lab: [facility] [address] Performing Lab: [facility] [address] [place] [id number] [facility] COMPREHE NSIVE METABOLI C PANEL CHLORIDE [MOLES/VOL UME] IN SERUM OR PLASMA 105 mmol/L 98 [...] 10, 2022 10:59 AM Reporting Lab: [facility] [address] THE [address] Performing Lab: [facility] [address] [place] [address] [facility] COMPREHE NSIVE METABOLI C PANEL CARBON DIOXIDE, TOTAL [MOLES/VOL UME] IN SERUM OR PLASMA 25 mmol/L 23 [...] 10, 2022 10:59 AM Reporting Lab: [facility] [address] [place] [address] Performing Lab: [facility] [address] [place] [address] [facility] COMPREHE NSIVE METABOLI C PANEL PROTEIN [MASS/VOLU ME] IN SERUM OR PLASMA 7.4 g/dL 6.0 [...] 10, 2022 10:59 AM Reporting Lab: [facility] [address] Performing Lab: [facility] [address] [place] [id number] [facility] COMPREHE NSIVE METABOLI C PANEL ALBUMIN [MASS/VOLU ME] IN SERUM OR PLASMA 4.5 g/dL 3.5 [...] 10, 2022 10:59 AM Reporting Lab: [facility] [address] Performing Lab: [facility] [address] [place] [address] [facility] COMPREHE NSIVE METABOLI C PANEL BILIRUBIN. TOTAL [MASS/VOLU ME] IN SERUM OR PLASMA 0.6 mg/dL 0.0 [...] 10, 2022 10:59 AM Reporting Lab: [facility] [address] [place] [phone] Performing Lab: [facility] [address] [facility] [address] [facility] COMPREHE NSIVE METABOLI C PANEL ALKALINE PHOSPHATAS E [ENZYMATIC ACTIVITY/V OLUME] IN SERUM OR PLASMA 115 U/L 0 [...] 10, 2022 10:59 AM Reporting Lab: [facility] [address] [place] [phone] Performing Lab: [facility] [address] [place] [phone] [facility] COMPREHE NSIVE METABOLI C PANEL ASPARTATE AMINOTRANS FERASE [ENZYMATIC ACTIVITY/V OLUME] IN SERUM OR PLASMA 34 U/L 0 [...] 10, 2022 10:59 AM Reporting Lab: [facility] [address] [place] [address] Performing Lab: [facility] [address] [place] [address] [place] [address] COMPREHE NSIVE METABOLI C PANEL ALANINE AMINOTRANS [...] 10, 2022 10:59 AM Reporting Lab: [facility] [address] [place] [address] Performing Lab: [facility] [address] COMPREHE NSIVE METABOLI C PANEL ANION GAP [...] 10, 2022 10:59 AM Reporting Lab: [facility] [address] [place] [address] Performing Lab: [facility] [address] [place] [address] [facility] COMPREHE NSIVE METABOLI C PANEL POTASSIUM [MOLES/VOL UME] IN SERUM OR PLASMA 4.1 mmol/L 3.5 [...] 10, 2022 10:59 AM Reporting Lab: [facility] [address] [facility] [address] Performing Lab: [facility] [address] [facility] [phone] [place] [address] COMPREHE NSIVE METABOLI C PANEL CALCIUM [MASS/VOLU ME] IN SERUM OR PLASMA 9.7 mg/dL 8.4 [...] 10, 2022 10:59 AM Reporting Lab: [facility] [address] [facility] [address] Performing Lab: [facility] [address] [facility] [address] [facility] COMPREHE NSIVE METABOLI C PANEL CREATININE [MASS/VOLU ME] IN SERUM OR PLASMA 1.2 mg/dL 0.5 - 1.2 11/15 /2023 Specimen Type: PLASMA Comment: eGFR calculated using [...] 10, 2022 10:59 AM Reporting Lab: [facility] [address] [facility] [address] Performing Lab: [facility] [address] [facility] [address] [facility] COMPREHE NSIVE METABOLI C PANEL GLUCOSE [MASS/VOLU ME] IN SERUM OR PLASMA 121 mg/dL 65 [...] 10, 2022 10:59 AM Reporting Lab: [facility] [address] [facility] [address] Performing Lab: [facility] [address] [facility] [address] [facility] COMPREHE NSIVE METABOLI C PANEL GLOMERULAR FILTRATION RATE/1.73 SQ M.PREDICTE D [VOLUME RATE/AREA] IN SERUM, PLASMA OR BLOOD BY CREATININE -BASED FORMULA (CKD-EPI 2020) 61 mL/min 07/08 Specimen [...] 10, 2022 10:59 AM Reporting Lab: [facility] [address] [place] [address] Performing Lab: [facility] [address] [place] [address] [facility] MICROALB UMINURIA (ANUP) CREATININE [MASS/VOLU ME] IN URINE 67.1 mg/dL 07/08 Specimen Type: URINE Comment: ANUP/CR RATIO not calculated when ANUP <12.0 or U.CREAT <15 Ordering Provider: TETE PACHECO Report Released Date/Time: Jun 23, 2023 02:55 PM Reporting Lab: [facility] [address] [place] [address] Performing Lab: [facility] [address] [place] [address] [facility] MICROALB UMINURIA (ANUP) PROTEIN [MASS/VOLU ME] IN URINE 6 mg/dL <12 - 12 07/08 Specimen Type: URINE Comment: ANUP/CR RATIO not calculated when ANUP <12.0 or U.CREAT <15 Ordering Provider: TETE PACHCEO Report Released Date/Time: Jun 23, 2023 02:55 PM Reporting Lab: [facility] [address] [place] [address] Performing Lab: [facility] [address] [place] [address] [facility] MICROALB UMINURIA (ANUP) MICROALBUM IN/CREATIN INE [MASS RATIO] IN URINE cancmg/g {creat} 07/08 Specimen Type: URINE Comment: ANUP/CR RATIO not calculated when ANUP <12.0 or U.CREAT <15 Ordering Provider: TETE PACHECO Report Released Date/Time: Jun 23, 2023 02:55 PM Reporting Lab: [facility] [address] [place] [address] Performing Lab: [facility] [address] [place] [address] [facility] MICROALB UMINURIA (ANUP) MICROALBUM IN [MASS/VOLU ME] IN URINE <12.0mg/ L 07/08 Specimen Type: URINE Comment: ANUP/CR RATIO not calculated when ANUP <12.0 or U.CREAT <15 Ordering Provider: TETE PACHECO Report Released Date/Time: Jun 23, 2023 02:55 PM Reporting Lab: [facility] [address] [place] [address] Performing Lab: [facility] [address] [place] [address] [facility] PSA PROSTATE SPECIFIC AG [MASS/VOLU ME] IN SERUM OR PLASMA 2.960 ng/mL 0 [...] 23, 2023 03:42 PM Reporting Lab: [facility] [address] [place] [address] Performing Lab: [facility] [address] [place] [address] [facility] URINALYS IS COLOR OF URINE Light-Ye llow 07/08 Specimen Type: URINE No comment entered. Ordering Provider: TETE PACHECO Report Released Date/Time: Jun 23, 2023 02:55 PM Reporting Lab: [facility] [address] [place] [address] Performing Lab: [facility] [address] [place] [address] [facility] URINALYS IS SPECIFIC GRAVITY OF URINE 1.010 1.003 - 1.030 07/08 Specimen Type: URINE No comment entered. Ordering Provider: TETE PACHECO Report Released Date/Time: Jun 23, 2023 02:55 PM Reporting Lab: [facility] [address] [place] [address] Performing Lab: [facility] [address] [place] [address] [facility] URINALYS IS BILIRUBIN. TOTAL [PRESENCE] IN URINE BY TEST STRIP Negative mg/dL 07/08 Specimen Type: URINE No comment entered. Ordering Provider: TETE PACHECO Report Released Date/Time: Jun 23, 2023 02:55 PM Reporting Lab: [facility] [address] [place] [address] Performing Lab: [facility] [address] [place] [address] [facility] URINALYS IS GLUCOSE [MASS/VOLU ME] IN URINE BY TEST STRIP Negative mg/dL 07/08 Specimen Type: URINE No comment entered. Ordering Provider: TETE PACHECO Report Released Date/Time: Jun 23, 2023 02:55 PM Reporting Lab: [facility] [address] [place] [address] Performing Lab: [facility] [address] [place] [address] [facility] URINALYS IS GLUCOSE [MASS/VOLU ME] IN URINE BY TEST STRIP Negative mg/dL 07/08 Specimen Type: URINE No comment entered. Ordering Provider: TETE PACHECO Report Released Date/Time: Jun 23, 2023 02:55 PM Reporting Lab: [facility] [address] Performing Lab: [facility] [address] [place] [phone] [facility] URINALYS IS PROTEIN [MASS/VOLU ME] IN URINE BY TEST STRIP Negative mg/dL 07/08 Specimen Type: URINE No comment entered. Ordering Provider: TETE PACHECO Report Released Date/Time: Jun 23, 2023 02:55 PM Reporting Lab: [facility] [address] [place] [address] Performing Lab: [facility] [address] [place] [address] [facility] URINALYS IS PH OF URINE BY TEST STRIP 7.0 [pH] 5.0 - 9.0 07/08 Specimen Type: URINE No comment entered. Ordering Provider: TETE PACHECO Report Released Date/Time: Jun 23, 2023 02:55 PM Reporting Lab: [facility] [address] [place] [address] Performing Lab: [facility] [address] [place] [address] [facility] URINALYS IS LEUKOCYTES [#/AREA] IN URINE SEDIMENT BY MICROSCOPY HIGH POWER FIELD 2 /[HPF] 0 - 5 07/08 Specimen Type: URINE No comment entered. Ordering Provider: TETE PACHECO Report Released Date/Time: Jun 23, 2023 02:55 PM Reporting Lab: [facility] [address] [place] [address] Performing Lab: [facility] [address] [place] [address] [facility] URINALYS IS MUCUS [PRESENCE] IN URINE SEDIMENT BY LIGHT MICROSCOPY RARE/[HP F] 07/08 Specimen Type: URINE No comment entered. Ordering Provider: TETE PACHECO Report Released Date/Time: Jun 23, 2023 02:55 PM Reporting Lab: [facility] [address] [place] [address] Performing Lab: [facility] [address] [place] [address] [facility] URINALYS IS ERYTHROCYT ES [#/AREA] IN URINE SEDIMENT BY MICROSCOPY HIGH POWER FIELD 60 /[HPF] 0 - 4 07/08 H Specimen Type: URINE No comment entered. Ordering Provider: TETE PACHECO Report Released Date/Time: Jun 23, 2023 02:55 PM Reporting Lab: [facility] [address] [place] [address] Performing Lab: [facility] [address] [place] [address] [facility] URINALYS IS HEMOGLOBIN [PRESENCE] IN URINE BY TEST STRIP 0.50 mg/dL 07/08 Specimen Type: URINE No comment entered. Ordering Provider: TETE PACHECO Report Released Date/Time: Jun 23, 2023 02:55 PM Reporting Lab: [facility] [address] [facility] [place] [address] Performing Lab: [facility] [address] [place] [address] [facility] URINALYS IS NITRITE [PRESENCE] IN URINE BY TEST STRIP Negative 07/08 Specimen Type: URINE No comment entered. Ordering Provider: TETE PACHECO Report Released Date/Time: Jun 23, 2023 02:55 PM Reporting Lab: [facility] [address] [place] [address] Performing Lab: [facility] [address] [place] [address] [facility] URINALYS IS LEUKOCYTE ESTERASE [PRESENCE] IN URINE BY TEST STRIP Negative 07/08 Specimen Type: URINE No comment entered. Ordering Provider: TETE PACHECO Report Released Date/Time: Jun 23, 2023 02:55 PM Reporting Lab: [facility] [address] [place] [address] Performing Lab: [facility] [address] [place] [address] [facility] URINALYS IS CLARITY OF URINE Clear 07/08 Specimen Type: URINE No comment entered. Ordering Provider: TETE PACHECO Report Released Date/Time: Jun 23, 2023 02:55 PM Reporting Lab: [facility] [address] [place] [phone] Performing Lab: [facility] [address] [place] [phone] [facility] URINALYS IS UROBILINOG EN [MASS/VOLU ME] IN URINE BY TEST STRIP Normalmg /dL 0.0 - 1.99 07/08 Specimen Type: URINE No comment entered. Ordering Provider: TETE PACHECO Report Released Date/Time: Jun 23, 2023 02:55 PM Reporting Lab: [facility] [address] [place] [phone] Performing Lab: [facility] [address] [place] [phone] [facility] URINALYS IS SPERMATOZO A [#/VOLUME] IN URINE BY AUTOMATED COUNT OCC/[HPF ] 07/08 Specimen Type: URINE No comment entered. Ordering Provider: TETE PACHECO Report Released Date/Time: Jun 23, 2023 02:55 PM Reporting Lab: [facility] [address] [place] [phone] Performing Lab: [facility] [address] [place] [address] [facility] Vital Signs Combined list of [...] Date DC Date Status Disposition Source [place] Outpatient Encounter [id number] Jadon VALDES 09/16 [place] [facility] [place] Outpatient Encounter [id number] 10/09 [place] [facility] [place] HC PRO PHONE CALL 11-20 MIN [id number] Diagnos is: ICD-10- CM R05.1 Acute cough<b r/> Adrienne COVINGTON M 10/09 [facility] N. [facility] Outpatient Encounter [id number] Diagnos is: ICD-10- CM U07.1 COVID-1 9
CASEY WOODWARD N 10/[address] [facility] N. [facility] Outpatient Encounter [id number] 10/[address] [facility] N. 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
WONG MARIE CAROLINA S 01[facility] OFF[facility] O/P NEW MOD 45-59 MIN [id number] Diagnos is: ICD-10- CM H57.813 Brow ptosis, bilater al
SWEETIECOLTON,NILESHK 01/21 [facility] ELECTROCAR DIOGRAM TRACING [id number] Diagnos is: ICD-10- CM Z01.810 Encount er for preproc edural cardiov ascular examina tion
TOSHA ZAVALA 02/05 [facility] OFF[facility] O/P EST MOD 30-39 MIN [id number] Diagnos is: ICD-10- CM Z01.818 Encount er for other preproc edural examina tion
CAROL RIOS 02/05 [facility] Outpatient Encounter [id number] Diagnos is: ICD-10- CM Z01.818 Encount er for other preproc edural examina tion
REVA GARDINER 02/18 [facility] Outpatient Encounter [id number] TISHA MILLER 02/18 [facility] Outpatient Encounter [id number] SYSTEM,CIS -ARK 02/26 [facility] OFFICE O/P NEW LOW 30-44 MIN [id number] Diagnos is: ICD-10- CM Z01.818 Encount er for other preproc edural examina tion
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
SHU SYLVESTER E E 02/26 [facility] Outpatient Encounter [id number] 02/26 [facility] POSTOP FOLLOW-UP VISIT [id number] Diagnos is: ICD-10- CM Z48.817 Encntr for surgica l aftcr fol surgery on the skin, subcu<b r/> ME FELIX DOUGLAS 03/11 [facility] POSTOP FOLLOW-UP VISIT [id number] Diagnos is: ICD-10- CM Z48.817 Encntr for surgica l aftcr fol surgery on the skin, subcu<b r/> ME FELIX DOUGLAS 04/08 [facility] Outpatient Encounter [id number] 05/26 [facility] Outpatient Encounter [id number] LEVAR ABEL Jadon Swan 06/22 [facility] OFF/OP EST DECEMBER X REQ PHY/QHP [id number] Diagnos is: ICD-10- CM 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
TEENA KUMAR JOSE 07/13 [facility] Outpatient Encounter [id number] VIVEK VIDALES 07/21 [facility] HC PRO PHONE CALL 5-10 MIN [id number] Diagnos is: ICD-10- CM G47.33 Obstruc tive sleep apnea (adult) ([facility])
JULIAN-CHANI STAUFFER 08/28 [facility] Outpatient Encounter [id number] ANDRADE TEENA DUBON JOSE 08/31 [facility] Outpatient Encounter [id number] TEENA KUMAR JOSE 08/31 [facility] Outpatient Encounter [id number] LUPE DUBONER JOSE 08/31 [facility] Outpatient Encounter [id number] 09/01 [facility] OFFICE O/P NEW MOD 45 MIN [id number] [id number] Diagnos is: ICD-10- CM R31.0 Gross hematur ia
BIA RICHARDSONN 09/02 N. [facility] N. [facility] Outpatient Encounter [id number] 09/02 . [facility] N. [facility] Outpatient Encounter [id number] 09/02 [facility] N. [facility] Outpatient Encounter [id number] ASTRID HACKETT 09/02 N. [facility] N. [facility] Outpatient Encounter [id number] ASTRID HACKETT 09/02 . [facility] N. [facility] Outpatient Encounter [id number] ASTRID HACKETT 09/03 [facility] N. [facility] Outpatient Encounter [id number] TEENA KUMAR 09/03 [facility] N. [facility] Outpatient Encounter [id number] 09/08 [facility] N. [facility] Outpatient Encounter [id number] ASTRID HACKETT 09/08 [facility] N. [facility] Outpatient Encounter [id number] ASTRID HACKETT 09/08 [facility] N. [facility] Outpatient Encounter [id number] Diagnos is: ICD-10- CM G47.33 Obstruc tive sleep apnea (adult) ([facility])
MARIELLA ANDRADE 09/08 N. [facility] N. [facility] HC PRO PHONE CALL 5-10 MIN [id number] Diagnos is: ICD-10- CM N40.1 Benign prostat ic hyperpl óscar with lower urinary tract symp
JENNYFER,WAYNE SHULTZ A 09/11 [facility] POS AIRWAY PRESSURE CPAP [id number] Diagnos is: ICD-10- CM G47.33 Obstruc tive sleep apnea (adult) ([facility])
JULIAN-QUILE SCHANI 10/13 [facility] N. [place] Outpatient Encounter [id number] FIDE JOHNSON ANGELA Swan 10/14 [facility] SPECIAL SUPPLIES PHYS/QHP [id number] Diagnos is: ICD-10- CM G47.33 Obstruc tive sleep apnea (adult) ([facility])
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
KAPHING,BR CAROLINA S 01/12 [facility] OFFICE O/P EST MOD 30 MIN [id number] Diagnos is: ICD-10- CM H02.834 Dermato chalasi s of left upper eyelid< br/> CAYCI,CENK 01/12 [facility] Outpatient Encounter [id number] [facility] Outpatient Encounter [id number] 01/21 [facility] Outpatient Encounter [id number] Diagnos is: ICD-10- CM N40.1 Benign prostat ic hyperpl óscar with lower urinary tract symp
DONAHOO,AKSHAT NI Sean 02/17 N. 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 Procedure Procedure Type Code Date Perfomer Comments Sourc e Bilateral upper blepharoplasty, transpalpebral browpexy with endotine, Levator advancement, tarsal strip/canthoplasty REVISION OF UPPER EYELID 52323 3 [facility] Social History Combined list of available smoking, tobacco, and other social history from Department of Defense and Veterans Affairs facilities. Social History Type Response Date Comment Sourc e Tobacco smoking status [facility] VA-TOBACCO QUIT 5 TO < 15 YRS 07/13/2023 [facility] History of tobacco use VA-TOBACCO FORMER USER 07/13/2023 [facility] History of tobacco use VA-TOBACCO QUIT 5 TO < 15 YRS 07/10/2022 [facility] History of tobacco use VA-TOBACCO QUIT 15 YRS OR MORE 07/11/2021 [facility] History of tobacco use VA-TOBACCO FORMER USER 07/05/2020 [facility] History of tobacco use PRIOR TOBACCO USE CESSATION DATE 09/01/2017 N. MUNIR/Bowen [facility] History of tobacco use TOBACCO PACK YEARS 08/31/2017 [facility] History of tobacco use PRIOR TOBACCO USE CESSATION DATE 10/24/2016 N. MUNIR/Bowen Kaur [facility] History of tobacco use TOBACCO PACK YEARS 10/23/2016 [facility] History of tobacco use PRIOR TOBACCO USE CESSATION DATE 07/09/2016 N. MUNIR/Bowen Kaur [facility] History of tobacco use TOBACCO PACK YEARS 07/09/2016 [facility] History of tobacco use PRIOR TOBACCO USE CESSATION DATE 07/09/2015 NShannan AMARAL/Bowen Kaur [facility] History of tobacco use TOBACCO PACK YEARS 07/09/2015 [facility] History of tobacco use CURRENT TOBACCO USE 07/12/2014 [facility] History of tobacco use CURRENT TOBACCO USE 07/07/2013 [facility] Plan of Care List of future care activities from [facility] facilities. Additional future care activities may be listed in the Assessment and Plan section. Date/Time Care Activity Care Activity Detail Facili ty 03/16/2024 AMBULATORY - SURGERY AMBULATORY - SURGERY [facility] 07/05/2024 AMBULATORY - NONE AMBULATORY - NONE [facility] [place] 07/12/2024 AMBULATORY - MEDICINE AMBULATORY - MEDICI [facility] 08/29/2024 AMBULATORY - NONE AMBULATORY - NONE [facility] [place] Advance Directives List of completed, amended, or rescinded Advance Directives on record at [facility] facilities. An actual copy of the Directive is not included. Date Advance Directive Provider Source 07/13/2023 ADVANCE DIRECTIVE NO TIFICATION AND SCREENING ROSA M SUAZO [facility] 07/10/2022 ADVANCE DIRECTIVE NO TIFICATION AND SCREENING ASTRID BHAT [facility] 07/05/2020 ADVANCE DIRECTIVE NO TIFICATION AND SCREENING DIPTI GILES [facility] 07/01/2019 ADVANCE DIRECTIVE DISCUSSION BETTY BROTHERS F [facility] 06/30/2018 ADVANCE DIRECTIVE DISCUSSION BETTY BROTHERS F [facility] 09/01/2017 ADVANCE DIRECTIVE DISCUSSION BETTY BROTHERS F [facility] 10/24/2016 ADVANCE DIRECTIVE DISCUSSION BETTY BROTHERS F [facility] 07/09/2016 ADVANCE DIRECTIVE DISCUSSION BETTY BROTHERS F [facility] 07/22/2013 ADVANCE DIRECTIVE SUZANNA HOOK [facility] [place]
--- OUTSIDE RECORDS SUMMARY | 2024-03-07 06:10 | XMS_ITS | Encounter Summary ---
Author Name [facility] [place] Address [address] [place] [id number] Care Team Providers Care Hospital Unit Clerk Name Role Phone MARI KUMAR Primary Care [...] Name Patient's Relationship to Policy Ibanez CAREMARK ([id number]) PRESCRIPT ION GEHA Jul 21, 2017 [id number] WONG QUINTERO PATIENT CAREMARK ([id number]) PRESCRIPT ION GEHA Jul 21, 2017 [id number] WONG QUINTERO [place] PATIENT CAREMARK ([id number]) PRESCRIPT ION GEHA Aug 24, 2011 [id number] [phone] WONG QUINTERO PATIENT GEHA (SECONDARY ) PREFERRED PROVIDER ORGANIZAT ION (PPO) GEHA Jul 21, 2017 [id number] ALTH [id number] [phone] WONG QUINTERO PATIENT GEHA (SECONDARY ) PREFERRED PROVIDER ORGANIZAT ION (PPO) GEHA MC A&B PRIMA RY Aug 24, 2011 [id number] [phone] WONG QUINTERO PATIENT GEHA [facility] DENTAL ONLY DENTAL INSURANCE HIGH OPTIO N DENTA L Jul 21, 2017 [id number] [phone] WONG SÁNCHEZ PATIENT [facility] DENTAL ONLY DENTAL INSURANCE [facility] ANA CTION DENT Jul 21, 2017 [id number] WONG QUINTERO PATIENT [facility] PREFERRED PROVIDER ORGANIZAT ION (PPO) DO NOT USE Aug 24, 2011 [id number] [phone] WONG QUINTERO PATIENT MEDICARE (WNR) MEDICARE (M) PART A Apr 24, 2015 PART A [id number] WONG QUINTERO PATIENT MEDICARE (WNR) MEDICARE (M) PART B Apr 24, 2015 PART B [id number] WONG QUINTERO PATIENT MEDICARE (WNR) MEDICARE (M) PART A Apr 24, 2015 PART A [id number] WONG QUINTERO PATIENT MEDICARE (WNR) MEDICARE (M) PART B Apr 24, 2015 PART B [id number] WONG QUINTERO PATIENT Selected Encounter This section includes the information on record at [place] for the Encounter. Date/Time Encounter Type Encounter Description Reason Provider Source Mar 03, 2024 09:30 AM OFFICE O/P EST MOD 30 MIN PLASTIC SURGERY ICD-10-CM H02.34 Blepharochalasis left upper eyelid ZOE ALLEN [facility] Encounter Template Text not used by [place] Assessments - Encounter Diagnoses This section includes the primary and secondary diagnoses documented for the Encounter. Date/Time Primary/Secondary Diagnosis Diagnosis Name Provider Source Mar 03, 2024 01:36 PM PRIMARY Blepharochalasis left upper eyelid CHE METCALF [facility] Plan of Treatment: Future Appointments (+ 6 months) and Future Tests (+/- 45 days) The Plan of Treatment section includes future care activities for the patient from all [place] treatmentfacilities. This section includes future appointments and future orders which are active, pending or scheduled. Future Appointments This section includes appointments that were scheduled to occur 6 months from the date of the Encounter, up to a maximum of 20 appointments. The data comes from all [place] treatment facilities. Appointment Date/Time Appointment Type Appointme nt Facility Name Mar 16, 2024 10:30 AM AMBULATORY - SURGERY [facility] Jul 05, 2024 08:00 AM AMBULATORY - NONE [facility] Jul 12, 2024 10:00 AM AMBULATORY - MEDICINE [facility] Aug 29, 2024 08:45 AM AMBULATORY - NONE [facility] Vital Signs: All taken on the encounter date This section contains inpatient and outpatient Vital Signs collected on the date of the Encounter. Date/Time Temperature Pulse Blood Pressure Respiratory Rate SP02 Pain Height Weight Body Mass Index Source Mar 03, 2024 09:35 AM 97.2 103 135/86 18 98 [facility] Advance Directives: All historical and current Section Date Range: From patient's date of to the date document was created. This section includes ALL of a patient's completed or amended [place] Advance and Rescinded Directives. The entries below indicate that a directive exists for the patient, but an actual copy is not included with this document. The data comes from all [place] facilities. Date Advance Directives Provider Source Jul 13, 2023 ADVANCE DIRECTIVE NO TIFICATION AND SCREENING ROSA M SUAZO [facility] Jul 10, 2022 ADVANCE DIRECTIVE NO TIFICATION AND SCREENING ASTRID BHAT [facility] Jul 05, 2020 ADVANCE DIRECTIVE NO TIFICATION AND SCREENING DIPTI GILES [facility] Jul 01, 2019 ADVANCE DIRECTIVE DISCUSSION FRAY,BETTY F [facility] Jun 30, 2018 ADVANCE DIRECTIVE DISCUSSION FRAY,BETTY F [facility] Sep 01, 2017 ADVANCE DIRECTIVE DISCUSSION FRAY,BETTY F [facility] Oct 24, 2016 ADVANCE DIRECTIVE DISCUSSION FRAY,BETTY F [facility] Jul 09, 2016 ADVANCE DIRECTIVE DISCUSSION FRAY,BETTY F [facility] Jul 22, 2013 ADVANCE DIRECTIVE SUZANNA HOOK [facility] Encounter Notes: All associated encounter notes This section contains the clinical notes associated to the Encounter. Date/Time Encounter Note(s) Provider Source Mar 03, 2024 03:17 PM NURSING NOTE: LOCAL TITLE: [facility] OPERATING ROOM/PROCEDURE FIRE RISK ASSESSMENT STANDARD TITLE: NURSING NOTE DATE OF NOTE: MAR 03, 2024@15:17 ENTRY DATE: MAR 03, 2024@15:17:52 AUTHOR: ASTRID GRUBBS EXP COSIGNER: URGENCY: STATUS: COMPLETED PROBLEM: FIRE RISK ASSESSMENT EXPECTED OUTCOME: Patient will remain free from injury related to surgical fire/ procedural fire NURSING ASSESSMENT: A. Is an alcohol-based skin antiseptic or other flammable solution being used preoperatively? No B. Is the procedure being performed above the xiphoid process or in the oropharynx? Yes, Interventions Coat head and facial hair near the site with water-soluble surgical lubricant to decrease flammability. Use an adhesive incise drape between the surgical/procedural site and the oxygen source. If oxygen concentration is greater than 30% consider laryngeal mask airway or endotracheal tube. Comments: C. Is open oxygen or nitrous oxide being administered (delivery via nasal cannula or face mask)? No D. Is an ESU (Electrical Surgical Unit), laser, or fiber optic cord being used? Yes, Interventions ESU Place the ESU in a location that does not put stress on the electrical cord. Keep the electrical cord dry and free of kinks, knots, and bends. Inspect the ESU cord before use, and do not use it if there is any evidence of breaks, nicks, or cracks in the outer insulation coating. Keep the active electrode cord free of kinks and coils during use. Only the person controlling the active electrode should activate the ESU. Use the lowest possible power setting for the ESU. Store the active electrode in a clean, dry, non-conductive safety holster when it is not in use. Keep sterile drapes or linens away from the activated ESU. Do not use an ignition source to enter the bowel or the trachea. Keep the ESU active electrode away from oxygen, nitrous oxide, or combustible anesthetic gas sources if possible. Do not activate the active electrode in the presence of flammable agents until the agents are dry and vapors have dissipated (eg, alcohol-based skin antiseptics, tinctures, de-fatting agents, collodion, petroleum-based lubricants, phenol, aerosol adhesives, uncured methyl methacrylate). Keep the active electrode tip clean. Use active electrode tips according to the tower hand's instructions. Use only active electrodes or return electrodes that are compatible with the ESU. Seat the active electrode tip securely into the electrosurgical hand piece. Do not alter the active electrode tip (eg, by bending, by using insulation sheaths made from flammable materials such as rubber catheters). Activate the active electrode only when it is in close proximity to the target tissue and away from other metal objects that could conduct heat or cause arcing. Inspect minimally invasive electrosurgical instruments for impaired insulation and remove them from service if the insulation is not intact. Use cut or blend settings instead of coagulation when possible. Remove the active electrode tip from the electrosurgical hand piece before discarding it. Remove the batteries or disable the cautery tip before disposing of battery-powered, hand-held cautery units, if applicable. During perineal procedure, use moistened radiopaque sponges to cover or pack the anus. Comments: E. Other possible contributors to fire are present (defibrillator, drills, saws, burrs) No OUTCOME: Option 1. Patient is free from fire/burn injury. Additional comments: /yamilex/ ASTRID GRUBBS RN REGISTERED NURSE Signed: 03/03/2024 15:18 ASTRID GRUBBS [facility] Mar 03, 2024 11:02 AM PLASTIC SURGERY [place] KATELYNDUYOLI NOTE: LOCAL TITLE: PLASTIC SURGERY PROCEDURE NOTE STANDARD TITLE: PLASTIC SURGERY PROCEDURE NOTE DATE OF NOTE: MAR 03, 2024@11:02 ENTRY DATE: MAR 03, 2024@11:02:39 AUTHOR: CHE METCALF EXP COSIGNER: URGENCY: STATUS: COMPLETED Procedure: Patient was identified by using full name and social security number. Procedure(s) to be performed was(were) discussed with patient and verified to be correct. Patient and/or family provided with appropriate education and patient and/or family acknowledged understanding. Site Marking: Site marked (as indicated by policy) A time out was taken prior to the procedure to verify correct patient correct procedure and correct site. Written informed consent obtained from the patient or surrogate, using the [place] approved form and process. Informed Consent Progress Note containing risks, benefits and alternatives documented. If applicable, imaging data were verified and confirmed. Patient positioning was verified prior to procedure if relevant. (supine, lateral) All necessary special equipment including implants were verified prior to procedure. PREOPERATIVE DIAGNOSIS: Dermatochalasis POSTOPERATIVE DIAGNOSIS: same as above OPERATIONS PERFORMED: 1. Left lateral eyelid skin excess removal, lateral retinacular suspension. SURGEON: Zoe Allen MD RESIDENT: Che Metcalf MD ANESTHESIA: Local DESCRIPTION OF OPERATION: After verification of site and the consent, the patient was brought to the operating room and placed on the operating room table in the supine position. We planned to performe the procedure under local anesthesia. The area was prepped and draped in the standard surgical fashion. The eyes were lubricated with artificial tear ointment. I marked the upper eyelid lateral skin excession of the left upper eyelid. The attention to detail paid during the planning of the resection was preserving at least 8 mm of skin between the lower edge of the excision and the upper eyelid margin, and at least 1 cm of skin between the upper margin of the excision and lower edge of the eyebrow. Then, we placed corneal protectors and starting infiltrating the eye with 1% Lidocaine with Epinephrine solution mixed with 0.5% Marcaine with Epinephrine solution; a total of 5 mL was injected to the left upper eyelid. I made my incision with the needle tip PEAK blade on the skin and through the orbicularis oculi muscle. I excised the skin and orbicularis oculi muscle, with the [place] tip needle. The eyelid peak point was in the desired position. Then I started irrigating the wound and started closing the incision. The lateral retinacular suspension was performed using 4-0 vicryl. The incision closure was performed using a 5-0 plain gut in a simple running fashion. The suture was tied at the end. At the end the corneal protectors were removed. The eyelid position was assessed once again. Erythromycin ophthalmic ointment was placed over the eyes and then the patient was transferred to the Recovery Room in a stable condition. /yamilex/ CHE METCALF MD RESIDENT Signed: 03/03/2024 11:07 CHE METCALF [facility] Mar 03, 2024 10:25 AM PLASTIC SURGERY [facility] OUTPATIENT NOTE: LOCAL TITLE: PLASTIC SURGERY CLINIC NURSING NOTE STANDARD TITLE: PLASTIC SURGERY NURSING OUTPATIENT NOTE DATE OF NOTE: MAR 03, 2024@10:25 ENTRY DATE: MAR 03, 2024@10:26:57 AUTHOR: ASTRID GRUBBS EXP COSIGNER: URGENCY: STATUS: COMPLETED PROBLEM: FIRE RISK ASSESSMENT EXPECTED OUTCOME: Patient will remain free from injury related to surgical/procedural fire. OUTCOME: Option 1 - Patient is free from fire/burn injury. Additional comments: None. /jose GRUBBS RN REGISTERED NURSE Signed: 03/03/2024 11:32 ASTRID GRUBBS [facility] Mar 03, 2024 09:40 AM PLASTIC SURGERY [facility] OUTPATIENT NOTE: LOCAL TITLE: PLASTIC SURGERY CLINIC NURSING NOTE STANDARD TITLE: PLASTIC SURGERY NURSING OUTPATIENT NOTE DATE OF NOTE: MAR 03, 2024@09:40 ENTRY DATE: MAR 03, 2024@09:40:32 AUTHOR: RODNEY HAILEIGNER: URGENCY: STATUS: COMPLETED GENERAL INFORMATION If you have a dressing in place, keep the surgical dressing clean, dry and intact for 24 hours following your procedure. You may then remove the dressing and cleanse the site with soap and water once or twice each day. After washing with soap and water, apply bacitracin or an antibiotic ointment to your incision. Steri-strips are thin adhesive strips that are used to close small incisionsor wounds. These strips are placed across your wound in order to pull and holdthe edges together to allow healing time. These are often used in place of sutures that would otherwise have to be removed. Your doctor or nurse will tell you if you have these prior to sending you home. If you have these in place, you do not need to place any ointment over your wound. You should leave the steri strips on until they fall off on their own in 1-2 weeks. If they do not all fall off after two weeks, you may gently peel them off at the edges. SUTURES If you have sutures in place that are non-dissolvable, they will be removed at your follow-up appointment. Please make this appointment at the front office attendant following your procedure, prior to leaving the clinic. Do not remove your sutures by yourself. BLEEDING If you have any bleeding, gently apply continuous pressure with a clean gauze pad, towel, or washcloth for 15 minutes. The bleeding should then stop. If it does not stop, apply pressure for another 15 minutes. If you are not able to controlthe bleeding with pressure, call the Repossession Agent, Thursday through Thursday, between 7:30 a.m. and 4:00 p.m, at [phone] or toll free at [phone], extension [phone]. At any other time, call the [place] Nurse Line at or go to the emergency department. POSSIBILITY OF INFECTION Signs of infection include: progressive swelling, redness, pain, and/or drainage from the wound. If you develop any of these, please call any of the numbers listed above or present to the emergency department. PAIN MANAGEMENT If you develop pain, take one or two regular strength (325mg) Tylenol (Acetaminophen) pills by mouth every 4 hours. Do not exceed a total of 3000MG in 24 hours. ADDITIONAL INFORMATION You may access these instructions through [employer] [email or web address].gov / With any other questions or concerns please call the General Surgery Coordinator, Thursday through Thursday, between 7:30 a.m. and 4:00 p.m at [phone]. At any other time, call the [place] Nurse Line at . Lastly, thank you for your service! /yamilex/ RODNEY HAILE RN REGISTERED NURSE Signed: 03/03/2024 09:40 RODNEY HAILE [facility] Mar 03, 2024 09:36 AM PLASTIC SURGERY [facility] OUTPATIENT NOTE: LOCAL TITLE: PLASTIC SURGERY CLINIC NURSING NOTE STANDARD TITLE: PLASTIC SURGERY NURSING OUTPATIENT NOTE DATE OF NOTE: MAR 03, 2024@09:36 ENTRY DATE: MAR 03, 2024@09:36:38 AUTHOR: RODNEY HAILE EXP COSIGNER: URGENCY: STATUS: COMPLETED 2F Nursing Specialty Care Note Reason for visit: Fix my left eyelid area Allergies: LISINOPRIL (Feb 03, 2023) No new Allergies. Medication Reconciliation Medication list has been reviewed with patient and accuracy verified. Vital Signs: Blood Pressure: 135/86 (03/03/2024 09:35) Heart Rate: 103 (03/03/2024 09:35) Respirations: 18 (03/03/2024 09:35) Temperature: 97.2 F [36.2 C] (03/03/2024 09:35) Weight: 230.1 lb [104.37 kg] (02/05/2023 07:53) Pain: 0 (02/26/2023 15:50) Minor Surgery Patient Information History of artificial joints: Yes, Left knee 2017 History of artificial heart valve: No History of stents: No History of rheumatic fever: No History of organ transplant: No Pacemaker present: No Defibrillator present: No Deep Brain Stimulator: No Other implantable device: No Presently on antiocoagulants: Yes Aspirin, Patient reports, I stopped taking 81 mg ASA a week ago as directed. aware and okay to proceed. Is the patient waering make-up, medicated lotions, or medicated creams on or near the site of surgery? No If the surgical site is on or near the head, facial, or heavy body hair, did the patient bathe and wash all areas? Yes Is the hair without product? No Is the patient wearing jewelry or body piercings? No Is the patient on supplemental oxygen? No /yamilex/ RODNEY HAILE RN REGISTERED NURSE Signed: 03/03/2024 09:40 RODNEY HAILE [facility]
--- OUTSIDE RECORDS SUMMARY | 2024-03-07 06:11 | XMS_ITS | Encounter Summary ---
Author Name [place] Address [address] [place] [address] Care Team Providers Care Lightout Examiner Name Role Phone MARI KUMAR Primary Care [...] Name Patient's Relationship to Policy Ibanez CAREMARK ([id number]) PRESCRIPT ION GEHA Jul 21, 2017 [id number] WONG QUINTERO PATIENT CAREMARK ([id number]) PRESCRIPT ION GEHA Jul 21, 2017 [id number] WONG QUINTERO [place] PATIENT CAREMARK ([id number]) PRESCRIPT ION GEHA Aug 24, 2011 [id number] [phone] WONG QUINTERO PATIENT GEHA (SECONDARY ) PREFERRED PROVIDER ORGANIZAT ION (PPO) GEHA Jul 21, 2017 [id number] ALTH [id number] WONG QUINTERO PATIENT GEHA (SECONDARY ) PREFERRED PROVIDER ORGANIZAT ION (PPO) GEHA A&B PRIMA RY Aug 24, 2011 [id number] WONG QUINTERO PATIENT GEHA [facility] DENTAL ONLY DENTAL INSURANCE GEHA CONNE CTION DENT Jul 21, 2017 [id number] LEON,BR [place] PATIENT [facility] FE DENTAL ONLY DENTAL INSURANCE HIGH OPTIO N DENTA L Jul 21, 2017 AA [id number] QUINTERO,BR [place] PATIENT [facility] PREFERRED PROVIDER ORGANIZAT ION (PPO) DO NOT USE Aug 24, 2011 [id number] [phone] QUINTERO,BR [place] PATIENT MEDICARE (WNR) MEDICARE (M) PART A Apr 24, 2015 PART A [id number] LEON,WONG SIMSN PATIENT MEDICARE (WNR) MEDICARE (M) PART B Apr 24, 2015 PART B [id number] [phone] LEON,WONG [place] PATIENT MEDICARE (WNR) MEDICARE (M) PART A Apr 24, 2015 PART A [id number] LEONBR [place] PATIENT MEDICARE (WNR) MEDICARE (M) PART B Apr 24, 2015 PART B [id number] [phone] WONG QUINTERO PATIENT Selected Encounter This section includes the information on record at [place] for the Encounter. Date/Time Encounter Type Encounter Description Reason Pro vider Source Mar 03, 2024 09:56 AM Outpatient Encounter EVENT (HISTORICAL) IHE Encounter Template Text not used by [place] Plan of Treatment: Future Appointments (+ 6 months) and Future Tests (+/- 45 days) The Plan of Treatment section includes future care activities for the patient from all [place] treatmentfacilities. This section includes future appointments and future orders which are active, pending or scheduled. Future Appointments This section includes appointments that were scheduled to occur 6 months from the date of the Encounter, up to a maximum of 20 appointments. The data comes from all [place] treatment facilities. Appointment Date/Time Appointment Type Appointme nt Facility Name Mar 16, 2024 10:30 AM AMBULATORY - SURGERY [facility] Jul 05, 2024 08:00 AM AMBULATORY - NONE [facility] Jul 12, 2024 10:00 AM AMBULATORY - MEDICINE [facility] Aug 29, 2024 08:45 AM AMBULATORY - NONE [facility] Vital Signs: All taken on the encounter date This section contains inpatient and outpatient Vital Signs collected on the date of the Encounter. Date/Time Temperature Pulse Blood Pressure Respiratory Rate SP02 Pain Height Weight Body Mass Index Source Mar 03, 2024 09:35 AM 97.2 103 135/86 18 98 [facility] Advance Directives: All historical and current Section Date Range: From patient's date of to the date document was created. This section includes ALL of a patient's completed or amended [place] Advance and Rescinded Directives. The entries below indicate that a directive exists for the patient, but an actual copy is not included with this document. The data comes from all [place] facilities. Date Advance Directives Provider Source Jul 13, 2023 ADVANCE DIRECTIVE NO TIFICATION AND SCREENING ROSA M SUAZO [facility] Jul 10, 2022 ADVANCE DIRECTIVE NO TIFICATION AND SCREENING ASTRID BHAT [facility] Jul 05, 2020 ADVANCE DIRECTIVE NO TIFICATION AND SCREENING DIPTI GILES [facility] Jul 01, 2019 ADVANCE DIRECTIVE DISCUSSION BETTY BROTHERS [facility] Jun 30, 2018 ADVANCE DIRECTIVE DISCUSSION BETTY BROTHERS [facility] Sep 01, 2017 ADVANCE DIRECTIVE DISCUSSION BETTY BROTHERS [facility] Oct 24, 2016 ADVANCE DIRECTIVE DISCUSSION BETTY BROTHERS [facility] Jul 09, 2016 ADVANCE DIRECTIVE DISCUSSION BETTY BROTHERS [facility] Jul 22, 2013 ADVANCE DIRECTIVE SUZANNA HOOK [facility]
[2024-03-07] MEDS: ACETAMINOPHEN 500 MG TABLET 1000 MG PO (06:58)
[2024-03-07] MEDS: LACTATED RINGERS 1000 ML 1,000 ML 100 ML IV ×2 (06:59→09:45)
[2024-03-07] MEDS: SODIUM CHLORIDE 0.9 % (FLUSH) 10 ML SYRINGE IVF (06:59)
[2024-03-07] MEDS: OXYCODONE (CR) 10 MG TAB.ER.12H PO (06:59)
[2024-03-07] MEDS: MIDAZOLAM HCL 1 MG/ML inj IVP (07:11)
[2024-03-07] MEDS: fentaNYL 100 MCG/2 ML inj IVP (07:11)
--- NOTE | 2024-03-07 07:12 | W.PM.H&PU ---
History & Physical Update History & Physical Update H&P Updates: Interval Left eye blepharoplasty. No issues
--- NOTE | 2024-03-07 07:20 | SUR.PREOP ---
TIME?OUT:?0711 PT/RN/MDA?VERIFICATION?OF?SURGICAL?SITE,?PROCEDURE,?AND?CONSENT OBTAINED?PRIOR?TO?INVASIVE?PROCEDURE.
[2024-03-07] MEDS: CEFAZOLIN 2 GM in 0.9 % SODIUM CHLORIDE Mini-bag 100 ML IVPB (08:00)
[2024-03-07] MEDS: TRANEXAMIC ACID 100 MG/ML INJ 1000 MG IV (08:01)
--- NOTE | 2024-03-07 08:07 | CRLHL7_ITS ---
For Patients: As a result of the Cures Act, medical imaging exams and procedure reports are released immediately into your electronic medical record. You may view this report before your referring provider. If you have questions, please contact your health care provider. Indication: Hip replacement surgery Technique: AP hip fluoroscopic image. Fluoroscopy time 46.7 seconds. Findings/Impression: Hardware from a right total hip arthroplasty is in satisfactory position. Dictated by Giovany Levy MD @ 03/08/2024 9:35:49 AM (Electronically Signed)
--- NOTE | 2024-03-07 09:34 | P.ORPRC_ITS ---
Procedure Note Date of procedure: 03/07/24 Procedure: PREOPERATIVE DIAGNOSIS: 1. Right hip osteoarthritis, severe, primary POSTOPERATIVE DIAGNOSIS: 1. Right hip osteoarthritis, severe, primary PROCEDURE: 1. Right total hip arthroplasty-anterior approach 2. 97702 - intraoperative fluoroscopy up to 1 hour. SURGEON: Kirby Duque MD. FEED MILL OPERATOR: Yvon Daniel PA-C; RAMIREZ Stallworth - Of note, a skilled escrow assistant was critical for this case to aid in patient positioning, tissue retraction, limb manipulation/positioning, and closure. ANESTHESIA: General endotracheal anesthetic EBL: 250 mL IMPLANTS: DePuy J&J uncemented total hip Derby cup size 56, hole eliminator, +4 neutral liner Actis stem, high offset, size 6 +1.5 mm ceramic 36 mm head COMPLICATIONS: None evident INDICATIONS: The patient is a pleasant 73-year-old male who has experienced severe right hip pain and difficulty bearing weight. Workup included x-rays which revealed severe osteoarthrosis in the hip. Given the deformity, the dysfunction, and the pain, as well as the failure of nonoperative management, recommendation was made for surgery. FINDINGS: Full-thickness chondral loss diffusely throughout the femoral head with multiple osteophytes on the femoral head/neck junction and perimeter of the acetabulum. Small effusion upon entering the joint. DESCRIPTION OF PROCEDURE: Following a thorough discussion of risks, benefits, and alternatives consent was obtained and the right hip was marked. The patient was brought to the operating room and placed supine on the operating table. Induction of anesthesia was undertaken. 2 g IV Ancef and 1 g tranexamic acid was administered within 1 hr of incision preoperatively. Proper time-out was performed identifying proper patient, site, procedure. The operative extremity was prepped and draped in the appropriate sterile fashion using ChloraPrep after the patient was positioned on the [place] table with head in neutral alignment and all bony prominences well padded. C-arm fluoroscopic imaging was utilized to confirm proper pelvis rotation and position, and to get true AP films of both the contralateral left, and the affected right hip. This is for comparison. A longitudinal incision was made starting approximately 1 cm distal to the ASIS, and 3-4 cm lateral. The incision was extended distally aiming toward the lateral border the patella. Sharp incision through skin and bovie cautery through the subcutaneous tissue allowed identification of the TFL fascia. This was sharply divided, and the fascia bluntly released from the muscle fibers as we dissected medial. Upon coming to the medial border, we were able to retract the TFL laterally, and penetrated the deeper fascia and identify the crossing circumflex vessels. These were ligated/cauterized. The rectus was elevated from the capsule, and retractors placed laterally and medially along the femoral neck to help with visualization of the capsule. We then performed an inverted T capsulotomy. The capsule was tagged for later repair. Retractors were placed inside the capsule. The femoral neck was visualized after releasing medially down to the lesser trochanter, along the saddle laterally, and up onto the acetabulum. The femoral neck cut was made in line with our preoperative templating. The head was removed in a single piece, and sized. We turned our attention to acetabular preparation. Initially, the labrum was resected from around the perimeter, the pulvinar was excised, allowing us to visualize the false wall. We started the reaming with a 43 mm reamer. This was medialized down to the true wall. We then enlarged our reamers sequentially up to one size less than the selected cup size. We trialed at the same size and found it to have an excellent fit. The selected cup was then opened, inserted, and impacted in line with the goal of 40? of abduction, and 20-25? of anteversion. This was confirmed on C-arm fluoroscopic imaging to be in the appropriate/goal position. Once the cup was placed we placed a hole eliminator and a liner consistent with preop planning. Attention was turned to the femoral preparation. The limb was extended, externally rotated, and adducted. The posteromedial capsule was released, as retractors were placed allowing excellent access to the proximal femur. Initially a air box tester was followed by canal finder followed by various broaches. We broached sequentially up to the size noted above, found it to have excellent rotational control, and trialing various heads and necks, revealed that appropriate neck offset, and the above noted head size provided the greatest stability, and oriental orthodox of length, and offset. C-arm fluoroscopic imaging confirmed position of the stem, as well as leg lengths, which were compared with the pre procedure all fluoroscopic images. Trial implants were removed, the real femoral stem inserted, as was the appropriate head. After reducing, the leg was placed through range of motion and stability was confirmed anterior, posterior, and lateral. A 3 min Betadine soak was then performed, and thorough irrigation with normal saline followed. Closure of the capsule was performed with #1 PDS. Bleeding was confirmed to be controlled at this stage, and the TFL fascia was closed with #0 strata fix. Subcutaneous, and subcuticular closure was performed with 2-0 Vicryl and 4-0 Monocryl, respectively. Dressings were applied, and the patient was awoken from anesthesia and transferred the PACU in stable condition. A skilled escrow assistant was critical for this case to aid in patient positioning, tissue retraction, acetabular and proximal femoral exposure, limb ma nipulation/positioning, dislocation/relocation, patient safety, and closure. PLAN: 1. Weight bear as tolerated operative extremity. 2. 23 hr perioperative antibiotics. 3. Ice. 4. PT/OT consults for ambulation assistance/mobility education. 5. Social work consult for discharge planning. 6. DVT prophylaxis with at SCDs and Xarelto x5 days followed by aspirin for a total of 1 month..
--- NOTE | 2024-03-07 10:18 | W.ANESCHARGE ---
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
--- NOTE | 2024-03-07 10:22 | CRLHL7_ITS ---
For Patients: As a result of the Cures Act, medical imaging exams and procedure reports are released immediately into your electronic medical record. You may view this report before your referring provider. If you have questions, please contact your health care provider. Indication: Postop Technique: AP pelvis and lateral view right hip Findings/Impression: Hardware from a right total hip arthroplasty is in satisfactory position. Bone alignment is normal. No sign of acute fracture. Postop changes are within normal limits. Dictated by Giovany Levy MD @ 03/08/2024 9:37:35 AM (Electronically Signed)
[2024-03-07] MEDS: fentaNYL 100 MCG/2 ML inj 50 MCG IVP ×2 (10:31→10:38)
--- NOTE | 2024-03-07 10:57 | W.ANESCHARGE ---
Anesthesia Charges Start Date/Time Anesthesia Start Date: 03/07/24 Anesthesia Start Time: 07:27 Stop Date/Time Anesthesia Stop Date: 03/07/24 Anesthesia Stop Time: 10:12 Summary Extremes of Age - Over 70 or under 1: MDA
--- NOTE | 2024-03-07 10:59 | P.NB_ITS ---
Nerve Block Nerve Block Time Seen by Provider: 07:14 Date Seen: 03/07/24 Type of block requested by surgeon for post-operative analgesia: VAL/LFCN Side: right Time out performed: Yes Verification of patient name: Yes Verification of date of : Yes Site marking: site marked Name of person performing procedure: Jamir Continuous monitoring Was continuous monitoring of O2 sat, B/P, monitoring engineer, recorded every 15 minutes?: Yes Procedure Checklist: sterile prep, needles and gloves Ultrasound guided. Images saved: Yes Medications given in 5ml increments after negative aspiration: Ropivicaine %: 0.5 mL: 30 Needle gauge: 20 Decadron (mg): 10 Precedex (mcg): 25 Patient tolerated procedure well: Yes Additional comments: Needle noted below psoas tendon needle noted adjacent to LFCN Block Charges Block Charge (with Pro Fee): Other Periph Nerve Block Use of Ultrasound Machine for Block: Yes- US Guidance/pain block
[2024-03-07] MEDS: OxyCODONE/APAP 5-325 TABLET PO (11:41)
[2024-03-07] MEDS: HYDROmorphone 0.5 mg/0.5 ml inj IVP (11:41)
== END 2024-03-07 15:00 | disposition home or self-care (01) ==
LOC: OR 06:08
PROVIDERS: PCP Family Medicine; Visit Provider Orthopaedic Surgery Sports Medicine
PROC: (CPT 27130; principal; 2024-03-07 07:30)
DX: M16.11 Unilateral primary osteoarthritis, right hip (principal); G89.18 Other acute postprocedural pain
CPT/HCPCS: 27130; 01214; 36415; 64450; 73501; 73502; 76942; 86850; 86900; 86901; 97116; 97161; 97165; 97535; 99100; A9270; C1776; J0330; J0690; J1100; J1170; J2250; J2405; J2795; J3010; J7120

== ENCOUNTER 2024-03-29 09:01 | Outpatient (CLI) | payer MEDICARE, OTHER, SELFPAY ==
--- OUTSIDE RECORDS SUMMARY | 2024-03-30 11:17 | XMS_ITS | Continuity of Care Document ---
Author Name [facility] Organization [facility] Care Team Providers Care Civil Rights Investigator Name Role Phone [facility] Unavailable Unavailable Problems Combined list of problems [...] 1 year (ordered by Ms Hernandez). N. [facility] Chronic kidney disease stage 3A Active Condition N. [facility] Chronic low back pain Active Condition N. [facility] Coronary atherosclerosis Active Condition N. [facility] Ex-cigarette smoker Active Condition [facility] Exposure to potentially hazardous substance Active Condition [facility] Exposure to potentially hazardous substance ([facility] [id number]) Active Condition Nov 26 4 Entered By: JAIME ROTHMAN Comment: Entered automatically through [facility] Problem List documentation [facility] Hearing loss Active Condition [facility] Hematuria Active Condition [facility] Herbicide poisoning Active Condition [facility] History of heartburn Active Condition [facility] Hyperlipidemia Active Condition [facility] Hypertension Active Condition [facility] Lower urinary tract symptoms due to benign prostatic hypertrophy Active Condition [facility] Multiple nodules of lung Active Condition Aug 07, 2020 Entered By: JEFFERSON KOCH Comment: LDCT 08/06/20: Rec repeat in one year (ordered). [facility] Obesity Active Condition [facility] Osteoarthritis Active Condition [facility] Tobacco user Active Condition Jul 05, 2020 Entered By: JEFFERSON KOCH Comment: Quit ~ 2013. [facility] Vitamin D deficiency Active Condition [facility] Diarrhea (SNOMED CT [id number]) Inactive Condition 07/12/2014 [facility] Knee pain Inactive Condition 07/01/2018 [facility] Lactose intolerance Inactive Condition 07/01/2018 [facility] Seborrheic dermatitis Inactive Condition 07/01/2018 [facility] Tinnitus Inactive Condition 07/01/2018 [facility] Diagnosis: ICD-10-CM Z48.89 Encounter for other specified surgical aftercare Active Diagnosis [facility] Diagnosis: ICD-10-CM H02.34 Blepharochalasis left upper eyelid Active Diagnosis [facility] Diagnosis: ICD-10-CM N40.1 Benign prostatic hyperplasia with lower urinary tract symp Active Diagnosis N. [facility] Diagnosis: ICD-10-CM Z71.9 Counseling, unspecified Active Diagnosis [facility] Diagnosis: ICD-10-CM H02.834 Dermatochalasis of left upper eyelid Active Diagnosis [facility] Diagnosis: ICD-10-CM G47.33 Obstructive sleep apnea (adult) (pediatric) Active Diagnosis N. [facility] Diagnosis: ICD-10-CM R31.0 Gross hematuria Active Diagnosis N. 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 [facility] Diagnosis: ICD-10-CM R05.1 Acute cough Active Diagnosis [facility] Medications Combined list of outpatient [...] by: Beny SANTORO OMO Document ed at: [facility] ORAL ACTIVE CIELO SANTORO 2014 [facility] ACETAMINOPH EN 500MG TAB ACETAMIN OPHEN 500MG TAB TAKE TWO TABLETS BY MOUTH EVERY 6 HOURS NEEDED FOR PAIN FOR PAIN Feb 20, 2023 40 Mar 28, 2023 [id number] Feb 26, 2023 THAI DOUGLAS [facility] ORAL 03/28/2023 [id number] Beny DOUGLAS [address] [facility] AMLODIPINE BESYLATE 2.5MG TAB AMLODIPI NE BESYLATE 2.5MG TAB Active TAKE ONE TABLET BY MOUTH EVERY 24 HOURS FOR BLOOD PRESSURE FOR BLOOD PRESSURE Jul 13, 2023 90 Jul 13, 2024 [id number] Apr 01, 2024 MARI KUMAR [facility] ORAL ACTIVE 07/13/2024 [id number] Carrie KUMAR 2022 90 [facility] AMLODIPINE TAB AMLODIPI NE TAB Non-VA TAKE BY MOUTH Feb 05, 2023 Non-VA Document ed by: TANNER RIOS Document ed at: [facility] ORAL ACTIVE BRENNA RIOS [address] [facility] ASPIRIN 81MG TAB,CHEWABL E ASPIRIN 81MG TAB,CHEW ABLE Non-VA CHEW ONE TABLET BY MOUTH Feb 05, 2023 Non-VA Document ed by: TANNER RIOS Document ed at: [facility] ORAL ACTIVE BRENNA RIOS [address] [facility] ASPIRIN 81MG TAB,EC ASPIRIN 81MG TAB,EC Non-VA TAKE ONE TABLET BY MOUTH ONE TIME EACH DAY Sep 01, 2017 Non-VA Document ed by: Beny SANTORO OMO Document ed at: [facility] ORAL ACTIVE CIELO SANTORO 2017 [facility] ATORVASTATI N CA 40MG TAB ATORVAST ATIN CA 40MG TAB Non-VA TAKE ONE TABLET BY MOUTH EVERY DAY Feb 05, 2023 Non-VA Document ed by: TANNER RIOS Document ed at: [facility] ORAL ACTIVE BRENNA RIOS 2022 [facility] ATORVASTATI N CA 80MG TAB ATORVAST ATIN CA 80MG TAB Active TAKE ONE-HALF TABLET BY MOUTH ONE TIME EACH DAY FOR CHOLESTE ROL FOR CHOLESTE ROL Jul 13, 2023 45 Jul 13, 2024 [id number] Mar 28, 2024 MARI KUMAR [facility] ORAL ACTIVE 07/13/2024 [id number] Carrie KUMAR 2022 45 [facility] CARBOXYMETH YLCELLULOSE NA 0.25% SOLN,OPH CARBOXYM ETHYLCEL LULOSE NA 0.25% SOLN,OPH Active INSTILL 2 DROPS IN BOTH EYES TWICE A DAY NEEDED FOR EYE DRYNESS AND IRRITATI ON FOR EYE IRRITATI ON Apr 08, 2023 15 Apr 08, 2024 [id number] May 02, 2023 THAI DOUGLAS [facility] OPHTHA LMIC ACTIVE 04/08/2024 [id number] Beny DOUGLAS [address] [facility] CELECOXIB 200MG CAP CELECOXI B 200MG CAP Active TAKE ONE CAPSULE BY MOUTH TWICE A DAY FOR PAIN FOR PAIN Mar 02, 2024 14 Apr 01, 2024 [id number] Mar 03, 2024 AIDEN HERNANDEZ [facility] ORAL ACTIVE 04/01/2024 [id number] NILESH HERNANDEZ K [address] [facility] CEPHALEXIN 500MG CAP CEPHALEX IN 500MG CAP Active TAKE ONE CAPSULE BY MOUTH EVERY 6 HOURS FOR INFECTIO US PROPHYLA XIS FOR INFECTIO US PROPHYLA XIS Mar 02, 2024 12 Apr 01, 2024 [id number] Mar 03, 2024 AIDEN HERNANDEZ [facility] ORAL ACTIVE 04/01/2024 [id number] NILESH HERNANDEZ K [address] [facility] CHOLECALCIF FRANCINE 25MCG (1,000UNIT) TAB CHOLECAL CIFEROL 25MCG (1,000UN IT) TAB Non-VA TAKE TWO TABLETS BY MOUTH Feb 05, 2023 Non-VA Document ed by: TANNER RIOS Document ed at: [facility] ORAL ACTIVE BRENNA RIOS [address] [facility] CYANOCOBALA MIN TAB CYANOCOB ALAMIN TAB Non-VA TAKE Feb 05, 2023 Non-VA Document ed by: TANNER RIOS Document ed at: [facility] ACTIVE BRENNA RIOS [address] [facility] DEXAMETHASO NE NA PHOSPHATE 0.1% SOLN,OPH DEXAMETH ASONE NA PHOSPHAT E 0.1% SOLN,OPH INSTILL 2 DROPS IN OPERATIV E EYE EVERY 6 HOURS FOR INFLAMMA TION FOR INFLAMMA TION Feb 20, 2023 5 Mar 28, 2023 [id number] Feb 26, 2023 THAI DOUGLAS [facility] OPHTHA LMIC 03/28/2023 [id number] Beny DOUGLAS [address] [facility] DICLOFENAC NA 1% GEL,TOP DICLOFEN AC NA 1% GEL,TOP Active APPLY 4 GRAMS TOPICALL Y FOUR TIMES A DAY NEEDED TO KNEES FOR PAIN (MEASURE DOSE USING SUPPLIED DOSING CARD) Sep 03, 2023 200 Sep 03, 2024 [id number] Sep 07, 2023 MARI KUMAR [facility] TOPICA L ACTIVE 09/03/2024 [id number] Carrie KUMAR 2023 200 [facility] DICLOFENAC NA 1% GEL,TOP DICLOFEN AC NA 1% GEL,TOP Disconti nued APPLY 4 GRAMS TOPICALL Y FOUR TIMES A DAY NEEDED TO KNEES FOR PAIN (MEASURE DOSE USING SUPPLIED DOSING CARD) Jul 10, 2022 200 Jul 11, 2023 [id number] Feb 18, 2023 PEACE ANDREWS [facility] TOPICA L DISCONT INUED 07/11/2023 [id number] CESIA ANDREWS AMA 2021 200 [facility] ERYTHROMYCI N 0.5% OINT,OPH ERYTHROM YCIN 0.5% OINT,OPH Active APPLY A THIN LAYER TO INCISION (S) TO LEFT EYE FOUR TIMES A DAY TO PREVENT INFECTIO N TO PREVENT INFECTIO N Mar 02, 2024 1 Apr 01, 2024 [id number] Mar 03, 2024 AIDEN HERNANDEZ [facility] OPHTHA LMIC ACTIVE 04/01/2024 [id number] NILESH HERNANDEZ K [address] [facility] ERYTHROMYCI N 0.5% OINT,OPH ERYTHROM YCIN 0.5% OINT,OPH APPLY A THIN LAYER TO INCISION (S) TO OPERATIV E EYE FOUR TIMES A DAY FOR WOUND CARE FOR WOUND CARE Feb 20, 2023 4 Feb 27, 2024 [id number] Feb 26, 2023 THAI DOUGLAS [facility] OPHTHA LMIC 02/27/2024 [id number] Beny DOUGLAS [address] [facility] FAMOTIDINE 20MG TAB FAMOTIDI NE 20MG TAB Non-VA TAKE ONE TABLET BY MOUTH TWICE A DAY Jul 01, 2019 Non-VA Document ed by: PHIL ROSEN Document ed at: N. [facility] ORAL ACTIVE FIDE ROSEN 2018 N. [facility] FAMOTIDINE TAB FAMOTIDI NE TAB Non-VA TAKE Feb 05, 2023 Non-VA Document ed by: TANNER RIOS Document ed at: [facility] ACTIVE BRNENA RIOS [address] [facility] FINASTERIDE 5MG TAB FINASTER [place] 5MG TAB Active TAKE ONE TABLET BY MOUTH ONE TIME EACH DAY FOR PROSTATE FOR PROSTATE Feb 18, 2024 90 Feb 18, 2025 [id number] Feb 18, 2024 KERRI PARK N. [facility] ORAL ACTIVE 02/18/2025 [id number] Masoud PARK 2023 90 N. [facility] FINASTERIDE 5MG TAB FINASTER [place] 5MG TAB Disconti nued TAKE ONE TABLET BY MOUTH ONE TIME EACH DAY FOR PROSTATE FOR PROSTATE Sep 11, 2023 30 Sep 11, 2024 [id number] Jan 29, 2024 CHYU RICHARDSON N. [facility] ORAL DISCONT INUED (EDIT) 09/11/2024 [id number] Masoud RICHARDSON 2023 30 N. [facility] [facility] FISH OIL 1000MG (500MG DHA/EPA) CAP,ORAL FISH OIL 1000MG (500MG DHA/EPA) CAP,ORAL Non-VA TAKE 2 CAPSULES BY MOUTH TWICE A DAY TO LOWER TRIGLYCE RIDES Jul 13, 2023 Non-VA Document ed by: MARI KUMAR Document ed at: [facility] ORAL ACTIVE Carrie KUMAR 2022 [facility] HYDROCHLORO THIAZIDE 25MG/LOSART AN POTASSIUM 100MG TAB HYDROCHL OROTHIAZ [place] 25MG/LOS JUSTINA POTASSIU M 100MG TAB Disconti nued TAKE 1 TABLET BY MOUTH ONE TIME EACH DAY FOR HIGH BLOOD PRESSURE FOR HIGH BLOOD PRESSURE Feb 23, 2023 60 Feb 24, 2024 [id number] May 06, 2023 KAYLIE WELLS E [facility] ORAL DISCONT INUED 02/24/2024 [id number] SAADIA COE 2022 60 [facility] HYDROCHLORO THIAZIDE 25MG/LOSART AN POTASSIUM 100MG TAB HYDROCHL OROTHIAZ [place] 25MG/LOS JUSTINA POTASSIU M 100MG TAB Disconti nued TAKE 1 TABLET BY MOUTH ONE TIME EACH DAY FOR HIGH BLOOD PRESSURE FOR HIGH BLOOD PRESSURE Nov 21, 2022 60 Nov 22, 2023 [id number] January 16, 2023 YANNI TRIMBLE N. [place] ORAL DISCONT INUED 11/22/2023 [id number] YANNI TRIMBLE 2022 60 N. [facility] [facility] MARINE LIPID (FISH OIL) CAP,ORAL MARINE LIPID (FISH OIL) CAP,ORAL Non-VA TAKE BY MOUTH Feb 05, 2023 Non-VA Document ed by: TANNER RIOS Document ed at: [facility] ORAL ACTIVE BRENNA RIOS [address] [facility] METOPROLOL TARTRATE 25MG TAB METOPROL OL TARTRATE 25MG TAB Active TAKE ONE TABLET BY MOUTH EVERY 12 HOURS FOR BLOOD PRESSURE FOR BLOOD PRESSURE Jul 13, 2023 180 Jul 13, 2024 [id number] Apr 01, 2024 MARI UKMAR [facility] ORAL ACTIVE 07/13/2024 [id number] Carrie KUMAR 2022 180 [facility] METOPROLOL TARTRATE TAB METOPROL OL TARTRATE TAB Non-VA TAKE BY MOUTH TWICE A DAY Feb 05, 2023 Non-VA Document ed by: TANNER RIOS Document ed at: [facility] ORAL ACTIVE BRENNA RIOS [address] [facility] METRONIDAZO LE 0.75% CREAM,TOP METRONID AZOLE 0.75% CREAM,TO P Non-VA APPLY TOPICALL Y Feb 05, 2023 Non-VA Document ed by: TANNER RIOS Document ed at: [facility] TOPICA L ACTIVE BRENNA RIOS [address] [facility] NIACIN TAB NIACIN TAB Non-VA TAKE Feb 05, 2023 Non-VA Document ed by: TANNER RIOS Document ed at: [facility] ACTIVE BRENNA RIOS [address] [facility] NITROGLYCER IN TAB,SUBLING UAL NITROGLY CERIN TAB,SUBL INGUAL Non-VA DISSOLVE UNDER THE TONGUE EVERY 5 MINUTES FOR UP TO 3 DOSES IF NEEDED NEEDED Feb 05, 2023 Non-VA Document ed by: TANNER RIOS Document ed at: [facility] SUBLIN GUAL ACTIVE BRENNA RIOS [address] [facility] NON VA MED NOT LISTED MISCELLANEO US NON VA MED NOT LISTED MISCELLA NEOUS Non-VA USE Feb 05, 2023 Non-VA Document ed by: TANNER RIOS Document ed at: [facility] ACTIVE BRENNA RIOS [address] [facility] OXYCODONE HCL 5MG TAB OXYCODON E HCL 5MG TAB Active TAKE ONE TABLET BY MOUTH EVERY 4 HOURS NEEDED FOR PAIN FOR PAIN Mar 02, 2024 30 Apr 01, 2024 [id number] Mar 03, 2024 AIDEN HERNANDEZ NK [facility] ORAL ACTIVE 04/01/2024 [id number] NILESH [facility]NANDEZ K 2023 30 [facility] OXYCODONE HCL 5MG TAB OXYCODON E HCL 5MG TAB TAKE ONE TABLET BY MOUTH EVERY 4 HOURS NEEDED FOR PAIN FOR PAIN Feb 20, 2023 30 Mar 28, 2023 [id number] Feb 26, 2023 THAI DOUGLAS [facility] ORAL 03/28/2023 [id number] Beny DOUGLAS [address] [facility] POLYVINYL ALCOHOL 1.4% SOLN,OPH POLYVINY L ALCOHOL 1.4% SOLN,OPH Active INSTILL 2 DROPS IN OPERATIV E EYE EVERY 2 HOURS NEEDED FOR EYE IRRITATI ON FOR EYE IRRITATI ON Mar 02, 2024 60 Mar 03, 2025 [id number] Mar 16, 2024 AIDEN HERNANDEZ [facility] OPHTHA LMIC ACTIVE 03/03/2025 [id number] NILESH HERNANDEZ [address] [facility] POLYVINYL ALCOHOL 1.4% SOLN,OPH POLYVINY L ALCOHOL 1.4% SOLN,OPH INSTILL 2 DROPS IN BOTH EYES EVERY HOUR NEEDED FOR EYE IRRITATI ON FOR EYE IRRITATI ON Feb 20, 2023 15 Feb 27, 2024 [id number] Mar 25, 2023 THAI DOUGLAS [facility] OPHTHA LMIC 02/27/2024 [id number] Beny DOUGLAS [address] [facility] PROBIOTIC [NON-VA] CAP,ORAL PROBIOTI C [NON-VA] CAP,ORAL Non-VA TAKE Jul 09, 2015 Non-VA Document ed by: Beny SANTORO Document ed at: [facility] ACTIVE CIELO SANTORO 2014 [facility] TAMSULOSIN HCL 0.4MG CAP TAMSULOS IN HCL 0.4MG CAP Active TAKE ONE CAPSULE BY MOUTH ONE TIME EACH DAY FOR URINATIO N FOR URINATIO N Feb 18, 2024 90 Feb 18, 2025 [id number] Feb 18, 2024 KERRI PARK N. [facility] ORAL ACTIVE 02/18/2025 [id number] Masoud PARK 2023 90 N. [facility] TAMSULOSIN HCL 0.4MG CAP TAMSULOS IN HCL 0.4MG CAP Disconti nued TAKE ONE CAPSULE BY MOUTH ONE TIME EACH DAY FOR URINATIO N FOR URINATIO N Sep 11, 2023 30 Sep 11, 2024 [id number] Jan 29, 2024 CHUY RICHARDSON N. [facility] ORAL DISCONT INUED (EDIT) 09/11/2024 [id number] Masoud RICHARDSON 2023 30 N. [facility] TRIAMCINOLO NE 0.1% OINT,TOP TRIAMCIN OLONE 0.1% OINT,TOP Non-VA APPLY TOPICALL Y Feb 05, 2023 Non-VA Document ed by: TANNER RIOS Document ed at: [facility] TOPICA L ACTIVE BRENNA RIOS [address] [facility] Allergies, Adverse Reactions, Alerts Combined list of allergies from Department of Defense and Veterans Affairs facilities. It does not include entries that were removed or entered in error. Substance Category Reaction Severity Reaction type Status Date Reported Comments Source LISINOPRIL Propensity to adverse reactions to drug (finding) Cough active 3 [facility] Immunizations Combined list of available immunizations from the Department of Defense and Veterans Affairs facilities. Immunization Series Date Given Administered By Site Reaction Lot Number CVX Code Drug Scabbler Status Comments Source INFLUENZA, UNSPECIFIED FORMULATION 2022 88 complet ed N. [facility] INFLUENZA, UNSPECIFIED FORMULATION 2021 88 complet ed N. [facility] COVID-19 (PFIZER), MRNA, LNP-S, PF, 30 MCG/0.3 ML DOSE, FABY-SUCROSE (AGES 12+ YEARS) 4 2021 217 complet ed N. [facility] COVID-19 (PFIZER), MRNA, LNP-S, PF, 30 MCG/0.3 ML DOSE 3 2020 208 complet ed N. [facility] INFLUENZA, UNSPECIFIED FORMULATION 2020 88 complet ed N. [facility] ZOSTER RECOMBINANT 2020 187 complet ed [facility] COVID-19 (PFIZER), MRNA, LNP-S, PF, 30 MCG/0.3 ML DOSE 2 2020 208 complet ed PFR; [id number]; [facility] (PFIZER), MRNA, LNP-S, PF, 30 MCG/0.3 ML DOSE 1 2020 208 complet ed PFR; [id number]; 1 N. [facility] TDAP 2019 115 complet ed [facility] ZOSTER RECOMBINANT 2019 187 complet ed [facility] INFLUENZA, UNSPECIFIED FORMULATION 2019 88 complet ed N. [facility] INFLUENZA, INJECTABLE, QUADRIVALENT, PRESERVATIVE FREE 2017 150 complet ed [facility] INFLUENZA, INJECTABLE, QUADRIVALENT, PRESERVATIVE FREE 2016 150 complet ed [facility] INFLUENZA, SEASONAL, INJECTABLE, PRESERVATIVE FREE 2015 140 complet ed [facility] INFLUENZA, SEASONAL, INJECTABLE, PRESERVATIVE FREE 2014 140 complet ed [facility] PNEUMOCOCCAL CONJUGATE PCV 13 2014 133 complet ed [facility] FLU,3 YRS (HISTORICAL) 2013 88 complet ed [facility] Varicella Zoster (HISTORICAL) 2013 complet ed [facility] PNEUMOCOCCAL, UNSPECIFIED FORMULATION 2012 109 complet ed [facility] PNEUMOCOCCAL POLYSACCHARID E PPV23 2012 33 complet ed N. [place] [facility] INFLUENZA, UNSPECIFIED FORMULATION 2012 88 complet ed N. [place] [facility] INFLUENZA, UNSPECIFIED FORMULATION 2011 88 complet ed [facility] TD(ADULT) UNSPECIFIED FORMULATION 2009 139 complet ed N. [place] [facility] Results Combined list of recent chemistry, [...] 01:47 PM Reporting Lab: [facility] [address] [facility] [address] Performing Lab: [facility] [address] [facility] [address] [facility] CREATINI NE(with eGFR) GLOMERULAR FILTRATION RATE/1.73 SQ [...] 01:47 PM Reporting Lab: [facility] [address] Performing Lab: [facility] [address] THE [place] [phone] [facility] TSH-G,LC ,J,T THYROTROPI N [UNITS/VOL UME] IN [...] 10:59 AM Reporting Lab: [facility] [address] THE [address] Performing Lab: [facility] [address] THE [place] [address] [facility] LIPID PANEL CHOLESTERO L [MASS/VOLU ME] IN [...] 10:59 AM Reporting Lab: [facility] [address] THE [place] [phone] Performing Lab: [facility] [address] [facility] [address] [facility] LIPID PANEL TRIGLYCERI DE [MASS/VOLU ME] IN [...] 10:59 AM Reporting Lab: [facility] [address] THE [place] [address] Performing Lab: [facility] [address] [facility] [address] [facility] LIPID PANEL CHOLESTERO L IN LDL [MASS/VOLU [...] 10:59 AM Reporting Lab: [facility] [address] [facility] [address] Performing Lab: [facility] [address] [facility] [address] [facility] LIPID PANEL CHOLESTERO L IN HDL [MASS/VOLU [...] 10:59 AM Reporting Lab: [facility] [address] [facility] [address] Performing Lab: [facility] [address] [facility] [address] [facility] LIPID PANEL CHOLESTERO L IN LDL [MASS/VOLU [...] 10:59 AM Reporting Lab: [facility] [address] [facility] [address] Performing Lab: [facility] [address] [facility] [address] [facility] B12 COBALAMIN (VITAMIN B12) [MASS/VOLU ME] IN SERUM OR PLASMA 836 pg/mL 240 - 900 07/08 Specimen Type: SERUM No comment entered. Ordering Provider: TETE PACHECO Report Released Date/Time: Jun 23, 2023 02:55 PM Reporting Lab: [facility] [address] THE [address] Performing Lab: [facility] [address] [facility] [address] [facility] TOTAL, T D VITAMIN D+METABOLI EVERARDO [MASS/VOLU [...] Jun 23, 2023 02:55 PM Reporting Lab: [place] [address] Performing Lab: [place] [address] [facility] HEMOGLOB IN %A1C PROFILE HEMOGLOBIN A1C/HEMOGL OBIN.TOTAL [...] 02:55 PM Reporting Lab: [facility] [address] THE [place] [phone] Performing Lab: [facility] [address] [facility] [id number] [facility] MICROALB UMINURIA (ANUP) CREATININE [MASS/VOLU ME] IN URINE 67.1 mg/dL 07/08 Specimen Type: URINE Comment: ANUP/CR RATIO not calculated when ANUP <12.0 or U.CREAT <15 Ordering Provider: TETE PACHECO Report Released Date/Time: Jun 23, 2023 02:55 PM Reporting Lab: [facility] [address] [place] [address] Performing Lab: [facility] [address] [place] [address] [facility] MICROALB UMINURIA (ANUP) PROTEIN [MASS/VOLU ME] IN URINE 6 mg/dL <12 - 12 07/08 Specimen Type: URINE Comment: ANUP/CR RATIO not calculated when ANUP <12.0 or U.CREAT <15 Ordering Provider: TETE PACHECO Report Released Date/Time: Jun 23, 2023 02:55 PM Reporting Lab: [facility] [address] [place] [address] Performing Lab: [facility] [address] [facility] [place] [address] [facility] MICROALB UMINURIA (ANUP) MICROALBUM IN/CREATIN INE [MASS RATIO] IN URINE cancmg/g {creat} 07/08 Specimen Type: URINE Comment: ANUP/CR RATIO not calculated when ANUP <12.0 or U.CREAT <15 Ordering Provider: TETE PACHECO Report Released Date/Time: Jun 23, 2023 02:55 PM Reporting Lab: [facility] [address] [place] [address] Performing Lab: [facility] [address] [place] [address] [facility] MICROALB UMINURIA (ANUP) MICROALBUM IN [MASS/VOLU ME] IN URINE <12.0mg/ L 07/08 Specimen Type: URINE Comment: ANUP/CR RATIO not calculated when ANUP <12.0 or U.CREAT <15 Ordering Provider: TETE PACHECO Report Released Date/Time: Jun 23, 2023 02:55 PM Reporting Lab: [facility] [address] [place] [address] Performing Lab: [facility] [address] [place] [address] [facility] PSA PROSTATE SPECIFIC AG [MASS/VOLU ME] IN [...] 03:42 PM Reporting Lab: [facility] [address] [place] [address] Performing Lab: [facility] [address] [place] [address] [facility] COMPREHE NSIVE METABOLI C PANEL UREA NITROGEN [MASS/VOLU ME] IN SERUM OR PLASMA 13 mg/dL 9 [...] 10:59 AM Reporting Lab: [facility] [address] [place] [address] Performing Lab: [facility] [address] [place] [address] [facility] COMPREHE NSIVE METABOLI C PANEL SODIUM [MOLES/VOL [...] 10:59 AM Reporting Lab: [facility] [address] [place] [id number] Performing Lab: [facility] [address] [place] [phone] [facility] COMPREHE NSIVE METABOLI C PANEL CHLORIDE [MOLES/VOL [...] 10:59 AM Reporting Lab: [facility] [address] [place] [phone] Performing Lab: [facility] [address] [place] [id number] COMPREHE NSIVE METABOLI C PANEL CARBON DIOXIDE, [...] 10:59 AM Reporting Lab: [facility] [address] [facility] [address] Performing Lab: [facility] [address] [facility] [address] [facility] COMPREHE NSIVE METABOLI C PANEL PROTEIN [MASS/VOLU [...] 10:59 AM Reporting Lab: [facility] [address] [facility] [address] Performing Lab: [facility] [address] [facility] [address] [facility] COMPREHE NSIVE METABOLI C PANEL ALBUMIN [MASS/VOLU [...] 10:59 AM Reporting Lab: [facility] [address] [facility] [address] Performing Lab: [facility] [address] [facility] [address] [facility] COMPREHE NSIVE METABOLI C PANEL BILIRUBIN. TOTAL [...] 10:59 AM Reporting Lab: [facility] [address] [place] [phone] Performing Lab: [facility] [address] [facility] [address] [facility] COMPREHE NSIVE METABOLI C PANEL ALKALINE PHOSPHATAS [...] 10:59 AM Reporting Lab: [facility] [address] [place] [address] Performing Lab: [facility] [address] [place] [address] [facility] COMPREHE NSIVE METABOLI C PANEL ASPARTATE AMINOTRANS [...] 10:59 AM Reporting Lab: [facility] [address] [place] [address] Performing Lab: [facility] [address] [place] [address] [facility] COMPREHE NSIVE METABOLI C PANEL ALANINE AMINOTRANS [...] 10:59 AM Reporting Lab: [facility] [address] [facility] [address] Performing Lab: [facility] [address] [facility] [address] [facility] COMPREHE NSIVE METABOLI C PANEL ANION GAP [...] 10:59 AM Reporting Lab: [facility] [address] [place] [address] Performing Lab: [facility] [address] [facility] [address] [facility] COMPREHE NSIVE METABOLI C PANEL POTASSIUM [MOLES/VOL [...] 10:59 AM Reporting Lab: [facility] [address] [place] [address] Performing Lab: [facility] [address] [place] [phone] [facility] COMPREHE NSIVE METABOLI C PANEL CALCIUM [MASS/VOLU [...] 10:59 AM Reporting Lab: [facility] [address] [place] [address] Performing Lab: [facility] [address] [place] [address] [facility] COMPREHE NSIVE METABOLI C PANEL CREATININE [MASS/VOLU [...] 10:59 AM Reporting Lab: [facility] [address] Performing Lab: [facility] [address] [place] [phone] [facility] COMPREHE NSIVE METABOLI C PANEL GLUCOSE [MASS/VOLU [...] 10:59 AM Reporting Lab: [facility] [address] [place] [address] Performing Lab: [facility] [address] [place] [address] [facility] COMPREHE NSIVE METABOLI C PANEL GLOMERULAR FILTRATION [...] 10:59 AM Reporting Lab: [facility] [address] THE [address] Performing Lab: [facility] [address] [place] [address] [facility] URINALYS IS COLOR OF URINE Light-Ye llow 07/08 Specimen Type: URINE No comment entered. Ordering Provider: TETE PACHECO Report Released Date/Time: Jun 23, 2023 02:55 PM Reporting Lab: [facility] [address] [place] [address] Performing Lab: [facility] [address] [place] [address] [facility] URINALYS IS SPECIFIC GRAVITY OF URINE 1.010 1.003 - 1.030 07/08 Specimen Type: URINE No comment entered. Ordering Provider: TETE PACHECO Report Released Date/Time: Jun 23, 2023 02:55 PM Reporting Lab: [facility] [address] [place] [address] Performing Lab: [facility] [address] [place] [address] [facility] URINALYS IS BILIRUBIN. TOTAL [PRESENCE] IN URINE BY TEST STRIP Negative mg/dL 07/08 Specimen Type: URINE No comment entered. Ordering Provider: TETE PACHECO Report Released Date/Time: Jun 23, 2023 02:55 PM Reporting Lab: [facility] [address] [place] [address] Performing Lab: [facility] [address] [place] [address] [facility] URINALYS IS GLUCOSE [MASS/VOLU ME] IN URINE BY TEST STRIP Negative mg/dL 07/08 Specimen Type: URINE No comment entered. Ordering Provider: TETE PACHECO Report Released Date/Time: Jun 23, 2023 02:55 PM Reporting Lab: [facility] [address] [place] [address] Performing Lab: [facility] [address] [place] [address] [facility] URINALYS IS GLUCOSE [MASS/VOLU ME] IN URINE BY TEST STRIP Negative mg/dL 07/08 Specimen Type: URINE No comment entered. Ordering Provider: TETE PACHECO Report Released Date/Time: Jun 23, 2023 02:55 PM Reporting Lab: [facility] [address] [place] [address] Performing Lab: [facility] [address] [place] [address] [facility] URINALYS IS PROTEIN [MASS/VOLU ME] IN URINE BY TEST STRIP Negative mg/dL 07/08 Specimen Type: URINE No comment entered. Ordering Provider: TETE PACHECO Report Released Date/Time: Jun 23, 2023 02:55 PM Reporting Lab: [facility] [address] [facility] [place] [address] Performing Lab: [facility] [address] [place] [address] [facility] URINALYS IS PH OF URINE BY TEST STRIP 7.0 [pH] 5.0 - 9.0 07/08 Specimen Type: URINE No comment entered. Ordering Provider: TETE PACHECO Report Released Date/Time: Jun 23, 2023 02:55 PM Reporting Lab: [facility] [address] [facility] [place] [address] Performing Lab: [facility] [address] [place] [address] [facility] URINALYS IS LEUKOCYTES [#/AREA] IN URINE SEDIMENT BY MICROSCOPY HIGH POWER FIELD 2 /[HPF] 0 - 5 07/08 Specimen Type: URINE No comment entered. Ordering Provider: TETE PACHECO Report Released Date/Time: Jun 23, 2023 02:55 PM Reporting Lab: [facility] [address] [place] [address] Performing Lab: [facility] [address] [place] [address] [facility] URINALYS IS MUCUS [PRESENCE] IN URINE SEDIMENT BY LIGHT MICROSCOPY RARE/[HP F] 07/08 Specimen Type: URINE No comment entered. Ordering Provider: TETE PACHECO Report Released Date/Time: Jun 23, 2023 02:55 PM Reporting Lab: [facility] [address] [place] [address] Performing Lab: [facility] [address] [place] [address] [facility] URINALYS IS ERYTHROCYT ES [#/AREA] IN URINE SEDIMENT BY MICROSCOPY HIGH POWER FIELD 60 /[HPF] 0 - 4 07/08 H Specimen Type: URINE No comment entered. Ordering Provider: TETE PACHECO Report Released Date/Time: Jun 23, 2023 02:55 PM Reporting Lab: [facility] [address] [place] [address] Performing Lab: [facility] [address] [place] [address] [facility] URINALYS IS HEMOGLOBIN [PRESENCE] IN URINE BY TEST STRIP 0.50 mg/dL 07/08 Specimen Type: URINE No comment entered. Ordering Provider: TETE PACHECO Report Released Date/Time: Jun 23, 2023 02:55 PM Reporting Lab: [facility] [address] [place] [address] Performing Lab: [facility] [address] [place] [address] [facility] URINALYS IS NITRITE [PRESENCE] IN URINE BY TEST STRIP Negative 07/08 Specimen Type: URINE No comment entered. Ordering Provider: TETE PACHECO Report Released Date/Time: Jun 23, 2023 02:55 PM Reporting Lab: [facility] [address] [place] [address] Performing Lab: [facility] [address] [place] [address] [facility] URINALYS IS LEUKOCYTE ESTERASE [PRESENCE] IN URINE BY TEST STRIP Negative 07/08 Specimen Type: URINE No comment entered. Ordering Provider: TETE PACHECO Report Released Date/Time: Jun 23, 2023 02:55 PM Reporting Lab: [facility] [address] [place] [address] Performing Lab: [facility] [address] [place] [address] [facility] URINALYS IS CLARITY OF URINE Clear 07/08 Specimen Type: URINE No comment entered. Ordering Provider: TTEE PACHECO Report Released Date/Time: Jun 23, 2023 02:55 PM Reporting Lab: [facility] [address] [place] [address] Performing Lab: [facility] [address] [place] [address] [facility] URINALYS IS UROBILINOG EN [MASS/VOLU ME] IN URINE BY TEST STRIP Normalmg /dL 0.0 - 1.99 07/08 Specimen Type: URINE No comment entered. Ordering Provider: TETE PACHECO Report Released Date/Time: Jun 23, 2023 02:55 PM Reporting Lab: [facility] [address] [place] [address] Performing Lab: [facility] [address] [place] [address] [facility] URINALYS IS SPERMATOZO A [#/VOLUME] IN URINE BY AUTOMATED COUNT OCC/[HPF ] 07/08 Specimen Type: URINE No comment entered. Ordering Provider: TETE PACHECO Report Released Date/Time: Jun 23, 2023 02:55 PM Reporting Lab: [facility] [address] [place] [address] Performing Lab: [facility] [address] [place] [address] [facility] Vital Signs Combined list of inpatient and [...] Date DC Date Status Disposition Source N[place] Outpatient Encounter [id number] 10/09 [place] [facility] N[facility] [place] HC PRO PHONE CALL 11-20 MIN [id number] Diagnos is: ICD-10- CM R05.1 Acute cough<b r/> Adrienne COVINGTON M 10/09 [facility] N[facility] Outpatient Encounter [id number] Diagnos is: ICD-10- CM U07.1 COVID-1 9
TRACECASEYAD N 10/09 [facility] Outpatient Encounter [id number] 10/22 [facility] N. 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
WONG MARIE S 01[facility]21 [facility] OFFICE O/P NEW MOD 45-59 MIN [id number] Diagnos is: ICD-10- CM H57.813 Brow ptosis, bilater al
DAVID,NILESHK 01/21 [facility] IS [facility] ELECTROCAR DIOGRAM TRACING [id number] Diagnos is: ICD-10- CM Z01.810 Encount er for preproc edural cardiov ascular examina tion
TOSHA ZAVALA REL 02/05 [facility] IS [facility] OFFICE O/P EST MOD 30-39 MIN [id number] Diagnos is: ICD-10- CM Z01.818 Encount er for other preproc edural examina tion
CAROL RIOS 02/05 [facility] IS [facility] Outpatient Encounter [id number] Diagnos is: ICD-10- CM Z01.818 Encount er for other preproc edural examina tion
REVA GARDINER 02/18 [facility] N. [place] Outpatient Encounter [id number] TISHA MILLER 02/18 [facility] IS [facility] Outpatient Encounter [id number] SYSTEM,[facility] -ARK 02/26 [facility] IS [facility] OFFICE O/P NEW LOW 30-44 MIN [id number] Diagnos is: ICD-10- CM Z01.818 Encount er for other preproc edural examina tion
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
SHU SYLVESTER E E 02/26 [facility] IS [facility] Outpatient Encounter [id number] 02/26 [facility] IS [facility] POSTOP FOLLOW-UP VISIT [id number] Diagnos is: ICD-10- CM Z48.817 Encntr for surgica l aftcr fol surgery on the skin, subcu<b r/> ME FELIX DOUGLAS 03/11 [facility] IS [facility] POSTOP FOLLOW-UP VISIT [id number] Diagnos is: ICD-10- CM Z48.817 Encntr for surgica l aftcr fol surgery on the skin, subcu<b r/> ME FELIX DOUGLAS 04/08 [facility] Outpatient Encounter [id number] 05/26 [facility] Outpatient Encounter [id number] LEVAR ABEL Beny 06/22 [facility] OFF/OP EST DECEMBER X REQ PHY/QHP [id number] Diagnos is: ICD-10- CM 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
TEENA KUMAR JOSE 07/13 [facility] Outpatient Encounter [id number] VIVEK VIDALES 07/21 [facility] HC PRO PHONE CALL 5-10 MIN [id number] Diagnos is: ICD-10- CM G47.33 Obstruc tive sleep apnea (adult) ([facility])
CHANI CAMPOVERDE 08/28 [facility] Outpatient Encounter [id number] TEENA KUMAR JOSE 08/31 [facility] Outpatient Encounter [id number] TEENA KUMAR JOSE 08/31 [facility] Outpatient Encounter [id number] TEENA KUMAR JOSE 08/31 [facility] Outpatient Encounter [id number] 09/01 [facility] OFFICE O/P NEW MOD 45 MIN [id number] Diagnos is: ICD-10- CM R31.0 Gross hematur ia
BIA RICHARDSON THO 09/02 [facility] N. [facility] Outpatient Encounter [id number] 09/02 [facility] N[facility] Outpatient Encounter [id number] 09/02 [facility] N[facility] Outpatient Encounter [id number] ASTRID HACKETT 09/02 [facility] N[facility] Outpatient Encounter [id number] ASTRID HACKETT 09/02 [facility] N. [facility] Outpatient Encounter [id number] ASTRID HACKETT 09/03 [facility] N[facility] Outpatient Encounter [id number] TEENA KUMAR 09/03 [facility] Outpatient Encounter [id number] 1 09/08 [facility] Outpatient Encounter [id number] ASTRID HACKETT 09/08 [facility] Outpatient Encounter [id number] ASTRID HACKETT 09/08 [facility] Outpatient Encounter [id number] Diagnos is: ICD-10- CM G47.33 Obstruc tive sleep apnea (adult) ([facility] melanie)
MARIELLA ANDRADE 09/08 [facility] N. 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
JENNYFER,WAYNE SHULTZ A 09/11 [facility] POS AIRWAY PRESSURE CPAP [id number] Diagnos is: ICD-10- CM G47.33 Obstruc tive sleep apnea (adult) ([facility])
JULIAN-QURIGOBERTO RADHA DeleonCHANI 10/13 [facility] N. [place] Outpatient Encounter [id number] FIDE JOHNSON ANGELA Swna 10/14 [facility] SPECIAL SUPPLIES PHYS/QHP [id number] [id number] Diagnos is: ICD-10- CM G47.33 Obstruc tive sleep apnea (adult) ([facility])
ELIZABETHFIDE Swan 10/[address] 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
KAPHING,BR CAROLINA S 01/12 [facility] OFFICE O/P EST MOD 30 MIN [id number] Diagnos is: ICD-10- CM H02.834 Dermato chalasi s of left upper eyelid< br/> CAYCI,CENK 01/12 [facility] Outpatient Encounter [id number] [facility] 01/12 [facility] Outpatient Encounter [id number] 01/21 [facility] Outpatient Encounter [id number] Diagnos is: ICD-10- CM N40.1 Benign prostat ic hyperpl óscar with lower urinary tract symp
AKSHAT PARK JARAD K 02/17 [place] [facility] IS [facility] OFFICE O/P EST MOD 30 MIN [id number] Diagnos is: ICD-10- CM H02.34 Blephar ochalas is left upper eyelid< br/> BERTA HERNANDEZ 03/03 [facility] IS [facility] Outpatient Encounter [id number] 03/03 [facility] N. [place] Outpatient Encounter [id number] 03/11 [facility] IS [facility] POSTOP FOLLOW-UP VISIT [id number] Diagnos is: ICD-10- CM Z48.89 Encount er for other specifi ed surgica l afterca re
KAPHING,BR CAROLINA S 03/16 [facility] Procedures Combined list of: 1) Procedures from Department of Veterans Affairs facilities going back up to thelast 18 months, not all [place] non-surgical procedures are included; 2) All procedures from the Department of Defense facilities. Procedure Procedure Type Code Date Perfomer Comments Sourc e Bilateral upper blepharoplasty, transpalpebral browpexy with endotine, Levator advancement, tarsal strip/canthoplasty REVISION OF UPPER EYELID 02321 3 [facility] Social History Combined list of available smoking, tobacco, and other social history from Department of Defense and Veterans Affairs facilities. Social History Type Response Date Comment Sourc e Tobacco smoking status [facility] VA-TOBACCO FORMER USER 07/13/2023 [facility] History of tobacco use SD-TOBACCO QUIT 5 TO < 15 YRS 07/13/2023 [facility] History of tobacco use VA-TOBACCO FORMER USER 07/10/2022 [facility] History of tobacco use [place]-TOBACCO FORMER USER 07/11/2021 [facility] History of tobacco use [place]-TOBACCO FORMER USER 07/05/2020 [facility] History of tobacco use PRIOR TOBACCO USE CESSATION DATE 09/01/2017 Rinku GUAJARDO Vincent [facility] History of tobacco use TOBACCO PACK YEARS 08/31/2017 [facility] History of tobacco use PRIOR TOBACCO USE CESSATION DATE 10/24/2016 Rinku AMARAL/Bowen GUAJARDO Vincent [facility] History of tobacco use TOBACCO PACK YEARS 10/23/2016 [facility] History of tobacco use PRIOR TOBACCO USE CESSATION DATE 07/09/2016 Rinku AMARAL/Bowen GUAJARDO Vincent [facility] History of tobacco use TOBACCO PACK YEARS 07/09/2016 [facility] History of tobacco use PRIOR TOBACCO USE CESSATION DATE 07/09/2015 Rinku AMARAL/Bowen GUAJARDO Vincent [facility] History of tobacco use TOBACCO PACK YEARS 07/09/2015 [facility] History of tobacco use CURRENT TOBACCO USE 07/12/2014 [facility] History of tobacco use CURRENT TOBACCO USE 07/07/2013 [facility] Plan of Care List of future care activities from [facility] facilities. Additional future care activities may be listed in the Assessment and Plan section. Date/Time Care Activity Care Activity Detail Facili ty 07/05/2024 AMBULATORY - NONE AMBULATORY - NONE [facility] 07/12/2024 AMBULATORY - MEDICINE AMBULATORY - MEDICI NE [facility] 08/29/2024 AMBULATORY - NONE AMBULATORY - NONE [facility] Advance Directives List of completed, amended, or rescinded Advance Directives on record at [facility] facilities. An actual copy of the Directive is not included. Date Advance Directive Provider Source 07/13/2023 ADVANCE DIRECTIVE NO TIFICATION AND SCREENING ROSA M SUAZO [facility] 07/10/2022 ADVANCE DIRECTIVE NO TIFICATION AND SCREENING ASTRID BHAT [facility] 07/05/2020 ADVANCE DIRECTIVE NO TIFICATION AND SCREENING DIPTI GILES [facility] 07/01/2019 ADVANCE DIRECTIVE DISCUSSION FRAY,BETTY F [facility] 06/30/2018 ADVANCE DIRECTIVE DISCUSSION FRAY,BETTY F [facility] 09/01/2017 ADVANCE DIRECTIVE DISCUSSION FRAY,BETTY F [facility] 10/24/2016 ADVANCE DIRECTIVE DISCUSSION FRAY,BETTY F [facility] 07/09/2016 ADVANCE DIRECTIVE DISCUSSION FRAY,BETTY F [facility] 07/22/2013 ADVANCE DIRECTIVE SUZANNA HOOK [facility]
== END 2024-03-29 09:02 | disposition home or self-care (01) ==
LOC: NFLDREF 03-30 11:15
PROVIDERS: PCP Family Medicine; Referring Provider Family Medicine; Visit Provider Family Medicine
DX: I10 Essential (primary) hypertension (principal); E78.00 Pure hypercholesterolemia, unspecified
CPT/HCPCS: 80048; 80061

== ENCOUNTER 2024-04-18 08:30 | Outpatient (RCR) | payer MEDICARE, OTHER, SELFPAY ==
--- NOTE | 2024-02-17 10:19 | PT.OPE ---
PT Boykins Outpatient Eval PT [facility] Outpatient Eval Start: 02/17/24 08:29 Freq: Status: Active Protocol: Document 02/17/24 10:17 DEVONTET (Rec: 02/17/24 10:18 SUSY [id number]) E-signed By Helio Loya PT Physical Therapy Outpatient Evaluation Insurance Information Recert Due Date 05/17/24 Insurance Name Medicare B Medical Diagnosis R SELMA Treating Diagnosis R SELMA Referring Kirby Lin MD Subjective Subjective Pt presents for pre-op L SELMA appointment. Pt rates his R hip pain as 8/10 with movement at this time. Made worse upon standing after sitting even for short periods. Pt chief complaint is pain with swinging bat while playing softball. He played softball just yesterday and is wanting to return to playing by May of this year. Pt is scheduled for R SELMA on 03/07/24 and note he is ready for this procedure. Pts PT order indicates L SELMA on 03/07/24. This will need to be updated to R SELMA. Pt has history of TKA in 2016. Date of Last Physician Visit 01/14/24 Current Work Status Retired Preferred Name Car Precautions Therapy Limitations/Systems Review Not Limited Objective Other/Pertinent Objective R hip AROM: Flexion: 110 IR/ER: L hip AROM: Flexion: 120 IR/ER: R hip strength: grossly 4/5 MMT for all L hip strength: grossly 5/5 MMT for all Assessment Assessment/Impression Patient presents for their pre -op therapy visit for L SELMA scheduled for 03/07/24. Pre- surgical consultation was completed including education on expected post-surgical swelling/bruising/pain, appropriate use of pain medication, icing to reduce pain/swelling, exercises following surgery, therapy outcomes and safety in and outside his home. Pt completed several reps of each of the exercises issued in his post- SELMA folder and shows good understanding of these. I did encourage the patient to practice all of these exercises at least two more times prior to surgery as well as read each of the pages on post-surgical expectations and safety and ambulation expectations following their surgery. All questions were answered to the patient's satisfaction. Skilled PT services are medically necessary to address deficits and return patient to highest level of function. Recommend physical therapy sessions 2 reducing to 1/week for 8-12 weeks, beginning 03/14/2024. Pt agrees with this plan. Printout of HEP was given for I completion and pt gives verbal understanding of each exercise. Primary Functional Limitations Walking, transfers, swinging baseball bat Plan of Care Rehabilitation Potential Excellent Physical Therapy Goals STG - To be completed in 2-3 weeks: 1. Pt will demo appropriate and safe use of all ADs to reduce risk of falls. 2. Pt will report consistent performance of post-op exercises and hourly walking to allow for appropriate healing and progression through early stages of rehabilitation. LTG - To be completed in 8-12 weeks: 1. Pt to be I with HEP so that he may I manage progression of symptoms. 2. Pt will demo at least 4+/5 MMT for all hip motions on R to provide appropriate support to R hip with activities including walking, stairs, and swinging bat. 3. 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 4. Pt will demo R hip AROM flexion of 110 degrees, extension of 5 degrees, and IR /ER equal to that before surgery. Treatment Plan/Direct Interventions Electrical Stimulation,Gait Training,Joint Mobilization, Manual Therapy,Neuromuscular Re-ed,Self-Care/Home Management,Therapeutic Activities,Therapeutic Exercises Frequency/Duration 2 reducing to 1/week for 8-12 weeks Patient Will Be Discharged From Therapy Completion of LTG(s),Skills Plateau,Independent w/HEP, Independently Progressing Evaluation Billing Untimed Code Treatment Minutes 45 PT Eval No Charge No Complexity Low Certification Information Initial Certification Date 02/17/24 Ending Certification Date 05/17/24 Provider Signature Required Yes Provider Signature Shows Agreement With POC & Medical Necessity Physician NPI Number Write NPI# Here Physician Comment/Change : Physician Signature & Date Requested Please Sign/Date Here
--- NOTE | 2024-03-14 09:28 | PT.OPDN ---
[facility] Daily Note PT [facility] Outpatient Daily Note Start: 02/17/24 08:29 Freq: Status: Active Protocol: Document 03/14/24 07:22 CJT (Rec: 03/14/24 09:27 CJT [id number]) E-signed By Helio Loya PT PT OP Daily Progress Note Visit Information Note Type Daily Note Visit Number 2 Insurance Authorized Visits no auth required Physician Authorized Visits eval and treat Insurance Information Recert Due Date 05/17/24 Insurance Name Medicare B Medical Diagnosis R SELMA Treating Diagnosis R SELMA Referring Kirby Lin MD Subjective Preferred Name Car Subjective Pt presents 7 days post-op R SELMA. Presents with FWW. Notes that he did not ross his walker at all yesterday while at home. Managing his pain well with oxy and tylenol. Pt is very worried that he is going to dislocate this hip. Was told that if he bends forward he will dislocate. Otherwise pt is doing quite well with minimal pain and discomfort. Has been trying to elevate his R leg in his recliner. Understands that he needs to place several pillows under his entire leg to truly elevate. Date of Last Physician Visit 01/14/24 Date of Surgery (If applicable) 03/07/24 Home Exercise Home Exercise Comments Post-op SELMA Objective Other/Pertinent Objective R hip AROM: Flexion: 80 IR/ER: 15/15 Abduction: 20 Skin inspection: pts incision is healing well, absent of redness and drainage. Minimal bruising noted along posterolateral thigh Patient Instructed in Risks/Benefits Yes Therapeutic Exercise Therapeutic Exercise Minutes (minutes) 30 Therapeutic Exercise: To Restore Quad set x 15, 5 hold Functional Status HS set x 15, 5 hold Heel slide x 20 Gluteal set x 15, 5 hold Ankle pumps x 20 Hip abduction in standing 2 x 10 NuStep: level 1, 12 minutes Manual Therapy Techniques Manual Therapy Minutes (minutes) 14 Manual Therapy Techniques Decongestive massage to entire R LE to reduce swelling Gentle STM to R quad, ITB, Adductor bundle, gastroc, soleus, glute med, and piriformis to reduce tissue tension. Treatment Minutes Untimed Code Treatment Minutes 15 Timed Code Treatment Minutes 44 Total Treatment Time 59 Billing Units Manual Therapy Units 1 Therapeutic Exercise Units 2 Re-Evaluation Units 1 Assessment/Impression Assessment/Impression Car is progressing exceptionally well in his first week post-op R SELMA. He was able to ambulate without AD and minimal gait deviations this date. Pts dressing was removed and incision looks appropriate, free of redness and drainage with minimal bruising noted in pts R LE. I have no major concerns for Car at this time. He will benefit from consistent performance of his current HEP as well as walking hourly at home. Next week we will plan to progress all exercises to allow Car to progress his strength, ROM, and function. Recommend continued PT services to address deficits and return pt to highest level of function. Plan of Care Physical Therapy Goals STG - To be completed in 2-3 weeks: 1. Pt will demo appropriate and safe use of all ADs to reduce risk of falls. 2. Pt will report consistent performance of post-op exercises and hourly walking to allow for appropriate healing and progression through early stages of rehabilitation. LTG - To be completed in 8-12 weeks: 1. Pt to be I with HEP so that he may I manage progression of symptoms. 2. Pt will demo at least 4+/5 MMT for all hip motions on R to provide appropriate support to R hip with activities including walking, stairs, and swinging bat. 3. 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 4. Pt will demo R hip AROM flexion of 110 degrees, extension of 5 degrees, and IR /ER equal to that before surgery. Daily Plan of Care Continue per POC
== END 2024-06-23 13:27 | disposition home or self-care (01) ==
PROVIDERS: PCP Family Medicine; Visit Provider Orthopaedic Surgery Sports Medicine
DX: M16.11 Unilateral primary osteoarthritis, right hip (principal); Z96.642 Presence of left artificial hip joint; Z51.89 Encounter for other specified aftercare
CPT/HCPCS: 97110; 97140; 97161; 97164

== ENCOUNTER 2024-05-25 13:27 | Emergency (ER) | payer MEDICARE, OTHER, SELFPAY ==
[2024-05-25] VITALS (11 sets, daily range): BP systolic 139–158; BP diastolic 72–114; PULSE 109–122; RESP 18; TEMP 36.3–37.5; O2SAT 90–99; BMI 33.3
--- NOTE | 2024-05-25 13:45 | ED.GENADULT ---
HPI - General Adult General Chief complaint: Flank Pain Stated complaint: flank pain Time Seen by Provider: 05/25/24 13:33 History of Present Illness HPI narrative: Pt states he has had a fever and chills since Thursday and feels off . He complains of bilateral flank pain and abdominal pain. Pt has some nausea. Pt has hx kidney stones. Pt was at this morning and was told to come to the ER. 74 year old man presenting to the emergency department after initially being evaluated in the urgent care due to concerns of right upper quadrant pain and back pain that just feels like a bad back ache. He had also been feeling chilled. No cough. No sore throat. Has been nauseated but not vomiting. Pain began in the upper abdomen over 2 days ago and just has not really gone away. He would appreciate something for the pain. Has been chilled. Yesterday did measure temperature at 101. Apparently CT imaging prior has shown nephrolithiasis though in our conversation does admit that CT scan did show gallstones upon a time as well. He notes history of kidney stone related pain but not like this. Did take a residual oxycodone which offered little in pain relief. Reviewed labs from Urgent Care today notable for mildly elevated white count and chemistries with a sodium of 123. Urinalysis does not look to be infected but notes 2+ protein and bilirubin and urobilinogen. Related Data Home Medications ?Medication ?Instructions ?Recorded ?Confirmed famotidine 20 mg tablet mg PO DAILY 03/10/22 04/21/24 metronidazole 0.75 % lotion 1 applic topical BID PRN 03/10/22 04/21/24 triamcinolone acetonide 0.1 % 1 applic topical BID PRN 03/10/22 04/21/24 topical cream niacin 500 mg tablet,extended 500 mg PO DAILY 04/24/22 04/21/24 release 24 hr Fish oil PO 01/08/23 04/21/24 acid tablets PO 01/11/24 04/21/24 boswella PO 01/11/24 04/21/24 centrum mulitvitamin PO 01/11/24 04/21/24 curcumin PO 01/11/24 04/21/24 diclofenac sodium 1 % topical gel 2 g topical QID 01/11/24 04/21/24 (Arthritis Pain (diclofenac)) finasteride 5 mg tablet 5 mg PO QDAY 01/11/24 04/21/24 tamsulosin 0.4 mg capsule 0.4 mg PO QDAY 01/11/24 04/21/24 turmeric PO 01/11/24 04/21/24 tamsulosin 0.4 mg capsule (Flomax) 0.4 mg PO QHS 05/25/24 05/25/24 Previous Rx's ?Medication ?Instructions ?Recorded amlodipine 5 mg tablet 2.5 - 5 mg (0.5 - 1 x 5 mg) PO 01/08/23 QDAY #90 tabs atorvastatin 40 mg tablet 40 mg PO .Bedtime #90 tabs 01/08/23 metoprolol tartrate 25 mg tablet 25 mg PO BID #180 tabs 01/08/23 nitroglycerin 0.4 mg sublingual 0.4 mg sublingual ONCE PRN chest 01/08/23 tablet pain #25 tabs triamterene 37.5 1 tab PO QAM #90 tabs 02/22/24 mg-hydrochlorothiazide 25 mg tablet aspirin 81 mg tablet,delayed 81 mg PO BID #50 tabs 03/07/24 release ondansetron 4 mg disintegrating 4 mg PO Q8H #15 tabs 03/07/24 tablet Allergies Allergy/AdvReac Type Severity Reaction Status Date / Time lisinopril AdvReac Unknown Cough Verified 05/25/24 12:14 Review of Systems Status of ROS: Reports: 6 or more systems reviewed and unremarkable except as noted in History and below PFSH [facility] Medical History Lip laceration ?S01.511A - Laceration without foreign body of lip, initial encounter (ICD-10) Hip pain, right ?M25.551 - Pain in right hip (ICD-10) BPH NOS w ur obs/LUTS ?N40.1 - Benign prostatic hyperplasia with lower urinary tract symptoms (ICD-10) CAD (coronary artery disease) ?I25.10 - Atherosclerotic heart disease of [place] coronary artery without angina pectoris (ICD-10) Encounter for annual wellness exam in Medicare patient ?Z00.00 - Encounter for general adult medical examination without abnormal findings (ICD-10) Surgical History 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) ?Z96.641 - Presence of right artificial hip joint (ICD-10) History of total left knee replacement (~2018) ?Z96.652 - Presence of left artificial knee joint (ICD-10) History of tonsillectomy ?Z90.89 - Acquired absence of other organs (ICD-10) Social History Smoking Status: Former smoker How often do you have a drink containing alcohol: 2-4 times a month How many standard drinks containing alcohol do you have on a typical day: 1 or 2 How often do you have six or more drinks on one occasion: Never AUDIT-C Alcohol total score: 2 Non-prescribed substance use: denies use Caffeine: Yes (4-5 c/day) Little interest or pleasure in doing things: not at all Feeling down, depressed, or hopeless: not at all Exam Narrative: Exam Narrative: Pleasant. NAD. Sclera are subtly icteric I think. Oropharynx is unremarkable. Neck is supple without lymphadenopathy. Lungs appear to be clear but he seems subtly labored and slightly tachypneic though says he does not feel short of breath. Abdomen is soft. Negative Marin's but tender in the right upper quadrant. Described back pain is not really reproducible; only mention is my cold hands. Lower extremities are well perfused without edema. Heart is slightly tachycardic. Regular rhythm. Distant. Const: Vital Signs, click to edit/add: Vital Signs - 24 hr 05/25/24 13:33 05/25/24 16:38 05/25/24 18:09 Temperature 97.3 F L Pulse Rate 109 H Pulse Rate [Right Pulse Oximeter] 114 H 112 H Respiratory Rate Blood Pressure Blood Pressure [Ri ght Upper Arm] 158/89 H 152/89 H Pulse Oximetry 99 94 91 Oxygen Delivery Me thod Room Air Room Air 05/25/24 18:10 05/25/24 18:15 05/25/24 18:30 Temperature 98.5 F Pulse Rate 109 H 122 H Pulse Rate [Right Pulse Oximeter] 109 H Respiratory Rate Blood Pressure Blood Pressure [Ri ght Upper Arm] 139/114 H Pulse Oximetry 91 91 95 Oxygen Delivery Me thod Room Air 05/25/24 18:36 05/25/24 18:45 05/25/24 19:00 Temperature Pulse Rate 116 H 113 H 113 H Pulse Rate [Right Pulse Oximeter] Respiratory Rate Blood Pressure 145/81 H Blood Pressure [Ri ght Upper Arm] Pulse Oximetry 93 90 Oxygen Delivery Me thod 05/25/24 19:17 05/25/24 19:34 Temperature 99.5 F Pulse Rate 120 H Pulse Rate [Right Pulse Oximeter] 117 H Respiratory Rate 18 Blood Pressure Blood Pressure [Ri ght Upper Arm] 141/72 H Pulse Oximetry 92 94 Oxygen Delivery Me thod Room Air Documenting provider has reviewed patient's vital signs: yes Course Vital Signs Vital signs: Initial Vital Signs Temperature 97.3 F L 05/25/24 13:33 Temperature Source Temporal Artery Scan 05/25/24 13:33 Pulse Rate 114 H 05/25/24 13:33 Blood Pressure 158/89 H 05/25/24 13:33 Blood Pressure Mean 112 H 05/25/24 13:33 Blood Pressure Position Sitting 05/25/24 13:33 Pulse Oximetry 99 05/25/24 13:33 Oxygen Delivery Method Room Air 05/25/24 13:33 Vital Signs Temperature 97.3 F L 05/25/24 13:33 Pulse Rate 114 H 05/25/24 13:33 Blood Pressure 158/89 H 05/25/24 13:33 Pulse Oximetry 99 05/25/24 13:33 Oxygen Delivery Method Room Air 05/25/24 13:33 Temperature 99.5 F 05/25/24 19:34 Pulse Rate 117 H 05/25/24 19:34 Respiratory Rate 18 05/25/24 19:34 Blood Pressure 141/72 H 05/25/24 19:34 Pulse Oximetry 94 05/25/24 19:34 Oxygen Delivery Method Room Air 05/25/24 19:34 Medications Administered Medications: Discontinued Medications Generic Name Dose Route Start Last Admin Trade Name Freq PRN Reason Stop Dose Admin Acetaminophen 1,000 mg 05/25/24 17:42 05/25/24 17:51 Acetaminophen 500 Mg Tablet PO 05/25/24 17:43 1,000 mg ONCE ONE Administration Sodium Chloride 1,000 mls @ 1,000 mls/hr 05/25/24 14:01 05/25/24 17:02 0.9 % Sodium Chloride 1000 Ml IV 05/25/24 15:00 Infused .Q1H ONE Infusion Piperacillin Sod/Tazobactam 100 mls @ 200 mls/hr 05/25/24 18:16 05/25/24 19:04 Sod 4.5 gm/ Sodium Chloride IVPB 05/25/24 18:17 Infused ONCE ONE Infusion Ketorolac Tromethamine 15 mg 05/25/24 14:01 05/25/24 15:07 Ketorolac 15 Mg/Ml Inj IVP 05/25/24 14:02 15 mg ONCE ONE Administration Morphine Sulfate 4 mg 05/25/24 14:01 05/25/24 15:10 Morphine 4 Mg/Ml Inj IVP 05/25/24 14:02 4 mg ONCE ONE Administration Morphine Sulfate 4 mg 05/25/24 17:42 05/25/24 17:54 Morphine 4 Mg/Ml Inj IVP 05/25/24 17:43 4 mg ONCE ONE Administration Ondansetron HCl 4 mg 05/25/24 14:01 05/25/24 15:15 Ondansetron 2 Mg/Ml Inj IVP 05/25/24 14:02 4 mg ONCE ONE Administration Medical Decision Making [facility] Narrative Medical decision making narrative: Given labs and reported symptoms I would evaluate gallbladder. Will be read requesting ultrasound looking for evidence of cholecystitis or lodged stone perhaps and biliary colic. Will collect blood culture - unfortunately only 1 set due to limited availability of culture vials. Cholangitis? Could have other illness perhaps COVID with mildly suppressed lymphocytes that might be contributing to the chills experience. Does not appear to have urinary tract etiology here. Hyponatremia might be related to prescribed Dyazide. Will initiate normal saline bolus 1 L. pain meds and antiemetic. Limited abdominal ultrasound as well. Director [employer] confirms cholelithiasis and thickened gallbladder wall. Would have further concern of ductal stone with elevated bilirubin though it is relatively half and half between conjugated and unconjugated. Radiology over-read of ultrasound as below INDICATION: Right upper quadrant abdomen pain. TECHNIQUE: Ultrasound abdomen limited. Sonographic images of the right upper quadrant were obtained using johnston-scale and color Doppler images. COMPARISON: None. FINDINGS: Liver: Mild echogenic hepatic parenchyma. No suspicious masses. No intrahepatic biliary dilatation. Gallbladder: Multiple gallstones. Increased gallbladder wall thickness measuring up to 4.6 mm. No pericholecystic fluid. Negative sonographic Marin`s sign per [employer]. Common bile duct: 5.4 mm. Pancreas: Not visualized due to overlying bowel gas. Right kidney: Normal in size. Normal echotexture and cortex. No suspicious masses, stones, or hydronephrosis. Vasculature: Proximal abdominal aorta and IVC are poorly visualized due to overlying bowel gas but unremarkable. IMPRESSION: 1. Mildly echogenic hepatic parenchyma, which could be suggestive of steatosis. Somewhat nodular appearance of the hepatic contour, but limited evaluation as the surface probe was not used. 2. Cholelithiasis with a thickened gallbladder wall measuring up to 4.6 mm. Negative sonographic Marin`s sign per [employer]. While these findings could be consistent with acute cholecystitis, underlying hepatic disease and patient hydration status could also cause gallbladder wall thickening. HIDA scan could be considered, if clinically helpful. Discussed case briefly with General surgery on-call. Recommendations are for an MRCP urgently. Meantime feeling a little feverish. Though recheck of temperature is normal. Increasing pain. Ordered for some more morphine. Will be starting Zosyn. Considering that he measured a fever yesterday, has been tachycardic throughout stay, I suppose he meets criteria for sirs and would have concern of evolving sepsis. I do review images of MRCP. It does look like there might be a ductal stone. I would anticipate transfer for ERCP. Still with concern of cholangitis. Radiology over-read available confirming a ductal stone Over-read as below TECHNIQUE: MRI and MRCP of the abdomen without IV contrast. COMPARISON: Abdominal ultrasound 05/25/2024. FINDINGS: Noncirrhotic configuration of the liver. No significant hepatic steatosis. Few subcentimeter T2 hyperintense liver lesions are incompletely characterized without IV contrast but likely benign. The unenhanced spleen, pancreas, kidneys, and adrenal glands are normal in appearance. No dilation of the main pancreatic duct. No peripancreatic edema. No hydronephrosis. There is gallbladder wall thickening and mild pericholecystic edema suggesting inflammation. The gallbladder is not significantly distended. Few small gallstones, some of which extend into the gallbladder neck. The common bile duct measures 7 mm in diameter, with a 3 mm hypodense filling defect in the distal common bile duct suspicious for choledocholithiasis (series 15 image 59 and series 7 image 21). No intrahepatic bile duct dilation. The cystic duct appears normal. No bowel dilation. Colonic diverticulosis. No free fluid or lymphadenopathy in the upper abdomen. Infrarenal abdominal aortic aneurysm measuring 3.1 cm in AP dimension. IMPRESSION: 1. Cholelithiasis with gallbladder wall thickening and mild pericholecystic edema suggesting inflammation. 2. Mild dilation of the common bile duct with a 3 mm stone in the distal duct. 3. Infrarenal abdominal aortic aneurysm measuring 3.1 cm. Discussed all with General surgery. Expressing same concerns and need for ERCP. Will be contacting [facility] for next level cares. Reassessment is still mildly labored and tachypneic. He notes he does have a history of interstitial lung disease. He has only received 1 L normal saline due to good blood pressures and uncertain chronicity of hyponatremia. Will initiate another L at higher than maintenance rate Have acceptance from [facility]. I did also speak with GI on-call. Medical Records Medical records reviewed: Yes I reviewed the patient's medical records Lab Data Lab results reviewed: Yes I reviewed the patient's lab results Labs: Lab Results 05/25/24 Range/Units 14:26 Total Bilirubin 1.9 H (0.1-1.5) mg/dL Direct Bilirubin 0.8 H (0.0-0.5) mg/dL AST 167 H (12-35) U/L ALT 354 H (4-50) U/L Alkaline Phosphatase 159 H (40-150) U/L Total Protein 7.7 (6.0-8.3) g/dL Albumin 4.6 (3.3-5.0) g/dL SARS-CoV-2 (PCR) Negative SARS-CoV-2 (Negative) Influenza Type A (PCR) Negative PCR FLU A (Negative) Influenza Type B (PCR) Negative PCR FLU B (Negative) Discharge Plan Discharge Clinical Impression: Choledocholithiasis, Acute cholecystitis, Hyponatremia, SIRS (systemic inflammatory response syndrome) Patient Disposition: [facility] Discharge Location: [facility] Condition: Stable
--- NOTE | 2024-05-25 14:03 | CRLHL7_ITS ---
For Patients: As a result of the Century Cures Act, medical imaging exams and procedure reports are released immediately into your electronic medical record. You may view this report before your referring provider. If you have questions, please contact your health care provider. INDICATION: Right upper quadrant abdomen pain. TECHNIQUE: Ultrasound abdomen limited. Sonographic images of the right upper quadrant were obtained using johnston-scale and color Doppler images. COMPARISON: None. FINDINGS: Liver: Mild echogenic hepatic parenchyma. No suspicious masses. No intrahepatic biliary dilatation. Gallbladder: Multiple gallstones. Increased gallbladder wall thickness measuring up to 4.6 mm. No pericholecystic fluid. Negative sonographic Marin`s sign per transfer worker. Common bile duct: 5.4 mm. Pancreas: Not visualized due to overlying bowel gas. Right kidney: Normal in size. Normal echotexture and cortex. No suspicious masses, stones, or hydronephrosis. Vasculature: Proximal abdominal aorta and IVC are poorly visualized due to overlying bowel gas but unremarkable. IMPRESSION: 1. Mildly echogenic hepatic parenchyma, which could be suggestive of steatosis. Somewhat nodular appearance of the hepatic contour, but limited evaluation as the surface probe was not used. 2. Cholelithiasis with a thickened gallbladder wall measuring up to 4.6 mm. Negative sonographic Marin`s sign per transfer worker. While these findings could be consistent with acute cholecystitis, underlying hepatic disease and patient hydration status could also cause gallbladder wall thickening. HIDA scan could be considered, if clinically helpful. Dictated by Giovany Weeks MD @ 05/25/2024 3:22:17 PM (Electronically Signed)
--- OUTSIDE RECORDS SUMMARY | 2024-05-25 14:15 | XMS_ITS | Continuity of Care Document ---
Author Name [facility] Organization [facility] Care Team Providers Care Party Plan Demonstrator Name Role Phone [facility] Unavailable Unavailable Problems Combined list of problems [...] 1 year (ordered by Ms Hernandez). N. [facility] Chronic kidney disease stage 3A Active Condition N. [facility] Chronic low back pain Active Condition N. [facility] Coronary atherosclerosis Active Condition N. [facility] Ex-cigarette smoker Active Condition [facility] Exposure to potentially hazardous substance Active Condition [facility] Exposure to potentially hazardous substance ([facility] [id number]) Active Condition Nov 26 4 Entered By: JAIME ROTHMAN Comment: Entered automatically through [employer] Problem List documentation program [facility] Hearing loss Active Condition [facility] Hematuria Active Condition [facility] Herbicide poisoning Active Condition [facility] History of heartburn Active Condition [facility] Hyperlipidemia Active Condition [facility] Hypertension Active Condition [facility] Lower urinary tract symptoms due to benign prostatic hypertrophy [facility] Multiple nodules of lung Active Condition Aug 07, 2020 Entered By: JEFFERSON KOCH Comment: LDCT 08/06/20: Rec repeat in one year (ordered). [facility] Obesity Active Condition [facility] Osteoarthritis Active Condition [facility] Tobacco user Active Condition Jul 05, 2020 Entered By: JEFFERSON KOCH Comment: Quit ~ 2013. [facility] Vitamin D deficiency Active Condition [facility] Diarrhea (SNOMED CT [id number]) Inactive Condition 07/12/2014 [facility] Knee pain Inactive Condition 07/01/2018 [facility] Lactose intolerance Inactive Condition 07/01/2018 [facility] Seborrheic dermatitis Inactive Condition 07/01/2018 [facility] Tinnitus Inactive Condition 07/01/2018 [facility] Diagnosis: ICD-10-CM Z48.89 Encounter for other specified surgical aftercare [facility] Diagnosis: ICD-10-CM H02.34 Blepharochalasis left upper eyelid Active [facility] Diagnosis: ICD-10-CM N40.1 Benign prostatic hyperplasia with lower urinary tract symp Active Diagnosis N. [facility] Diagnosis: ICD-10-CM Z71.9 Counseling, unspecified Active Diagnosis [facility] Diagnosis: ICD-10-CM H02.834 Dermatochalasis of left upper eyelid Active [facility] Diagnosis: ICD-10-CM G47.33 Obstructive sleep apnea (adult) (pediatric) Active Diagnosis N. [facility] Diagnosis: ICD-10-CM R31.0 Gross hematuria Active Diagnosis N. 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 Diagnosis [facility] Diagnosis: ICD-10-CM Z01.818 Encounter for other preprocedural examination Active Diagnosis [facility] Diagnosis: ICD-10-CM Z01.810 Encounter for preprocedural cardiovascular examination Active Diagnosis [facility] Diagnosis: ICD-10-CM H57.813 Brow ptosis, bilateral Active Diagnosis [facility] Medications Combined list of outpatient medications [...] ed by: Beny SANTORO Document ed at: [facility] ORAL ACTIVE CIELO SANTORO [place] 2014 [facility] [place] ACETAMINOPH EN 500MG TAB ACETAMIN OPHEN 500MG TAB TAKE TWO TABLETS BY MOUTH EVERY 6 HOURS NEEDED FOR PAIN FOR PAIN Feb 20, 2023 40 Mar 28, 2023 [id number] Feb 26, 2023 THAI DOUGLAS [facility] ORAL 03/28/2023 [id number] Beny DOUGLAS 2022 40 [facility] AMLODIPINE BESYLATE 2.5MG TAB AMLODIPI NE BESYLATE 2.5MG TAB Active TAKE ONE TABLET BY MOUTH EVERY 24 HOURS FOR BLOOD PRESSURE FOR BLOOD PRESSURE Jul 13, 2023 90 Jul 13, 2024 [id number] Apr 01, 2024 MAIR KUMAR [facility] ORAL ACTIVE 07/13/2024 [id number] Carrie KUMAR 2022 90 [facility] [place] AMLODIPINE TAB AMLODIPI NE TAB Non-VA TAKE BY MOUTH Feb 05, 2023 Non-VA Document ed by: TANNER RIOS Document ed at: [facility] ORAL ACTIVE BRENNA RIOS 2022 [facility] ASPIRIN 81MG TAB,CHEWABL E ASPIRIN 81MG TAB,CHEW ABLE Non-VA CHEW ONE TABLET BY MOUTH Feb 05, 2023 Non-VA Document ed by: TANNER RIOS Document ed at: [facility] ORAL ACTIVE BRENNA RIOS 2022 [facility] ASPIRIN 81MG TAB,EC ASPIRIN 81MG TAB,EC Non-VA TAKE ONE TABLET BY MOUTH ONE TIME EACH DAY Sep 01, 2017 Non-VA Document ed by: Beny SANTORO OMO Document ed at: [facility] ORAL ACTIVE CIELO SANTORO MO 2017 [facility] ATORVASTATI N CA 40MG TAB ATORVAST ATIN CA 40MG TAB Non-VA TAKE ONE TABLET BY MOUTH EVERY DAY Feb 05, 2023 Non-VA Document ed by: TANNER RIOS Document ed at: [facility] ORAL ACTIVE BRENNA RIOS DELGADO 2022 [facility] ATORVASTATI N CA 80MG TAB ATORVAST ATIN CA 80MG TAB Active TAKE ONE-HALF TABLET BY MOUTH ONE TIME EACH DAY FOR CHOLESTE ROL FOR CHOLESTE ROL Jul 13, 2023 45 Jul 13, 2024 [id number] Mar 28, 2024 MARI KUMAR [facility] ORAL ACTIVE 07/13/2024 [id number] Carrie KUMAR 2022 45 [facility] [place] CARBOXYMETH YLCELLULOSE NA 0.25% SOLN,OPH CARBOXYM ETHYLCEL LULOSE NA 0.25% SOLN,OPH INSTILL 2 DROPS IN BOTH EYES TWICE A DAY NEEDED FOR EYE DRYNESS AND IRRITATI ON FOR EYE IRRITATI ON Apr 08, 2023 15 Apr 08, 2024 [id number] May 02, 2023 THAI DOUGLAS [facility] OPHTHA LMIC 04/08/2024 [id number] Beny DOUGLAS 2022 15 [facility] CELECOXIB 200MG CAP CELECOXI B 200MG CAP TAKE ONE CAPSULE BY MOUTH TWICE A DAY FOR PAIN FOR PAIN Mar 02, 2024 14 Apr 01, 2024 [id number] Mar 03, 2024 AIDEN HERNANDEZ [facility] ORAL 04/01/2024 [id number] NILESH HERNANDEZ 2023 14 [facility] CEPHALEXIN 500MG CAP CEPHALEX IN 500MG CAP TAKE ONE CAPSULE BY MOUTH EVERY 6 HOURS FOR INFECTIO US PROPHYLA XIS FOR INFECTIO US PROPHYLA XIS Mar 02, 2024 12 Apr 01, 2024 [id number] Mar 03, 2024 AIDEN HERNANDEZ [facility] ORAL 04/01/2024 [id number] NILESH HERNANDEZ 2023 12 [facility] CHOLECALCIF FRANCINE 25MCG (1,000UNIT) TAB CHOLECAL CIFEROL 25MCG (1,000UN IT) TAB Non-VA TAKE TWO TABLETS BY MOUTH Feb 05, 2023 Non-VA Document ed by: TANNER RIOS Document ed at: [facility] ORAL ACTIVE BRENNA RIOS 2022 [facility] CYANOCOBALA MIN TAB CYANOCOB ALAMIN TAB Non-VA TAKE Feb 05, 2023 Non-VA Document ed by: TANNER RIOS Document ed at: [facility] ACTIVE BRENNA RIOS 2022 [facility] DEXAMETHASO NE NA PHOSPHATE 0.1% SOLN,OPH DEXAMETH ASONE NA PHOSPHAT E 0.1% SOLN,OPH INSTILL 2 DROPS IN OPERATIV E EYE EVERY 6 HOURS FOR INFLAMMA TION FOR INFLAMMA TION Feb 20, 2023 5 Mar 28, 2023 [id number] Feb 26, 2023 THAI DOUGLAS [facility] OPHTHA LMIC 03/28/2023 [id number] Beny DOUGLAS 2022 5 [facility] DICLOFENAC NA 1% GEL,TOP DICLOFEN AC NA 1% GEL,TOP Active APPLY 4 GRAMS TOPICALL Y FOUR TIMES A DAY NEEDED TO KNEES FOR PAIN (MEASURE DOSE USING SUPPLIED DOSING CARD) Sep 03, 2023 200 Sep 03, 2024 [id number] May 09, 2024 MARI KUMAR [facility] TOPICA L ACTIVE 09/03/2024 [id number] Carrie KUMAR 2023 200 [facility] [place] ERYTHROMYCI N 0.5% OINT,OPH ERYTHROM YCIN 0.5% OINT,OPH APPLY A THIN LAYER TO INCISION (S) TO LEFT EYE FOUR TIMES A DAY TO PREVENT INFECTIO N TO PREVENT INFECTIO N Mar 02, 2024Apr 01, 2024 [id number] Mar 03, 2024 AIDEN HERNANDEZ [facility] OPHTHA LMIC 04/01/2024 [id number] NILESH HERNANDEZ 2023 1 [facility] ERYTHROMYCI N 0.5% OINT,OPH ERYTHROM YCIN 0.5% OINT,OPH APPLY A THIN LAYER TO INCISION (S) TO OPERATIV E EYE FOUR TIMES A DAY FOR WOUND CARE FOR WOUND CARE Feb 20, 2023 4 Feb 27, 2024 [id number] Feb 26, 2023 THAI DOUGLAS [facility] OPHTHA LMIC 02/27/2024 [id number] STELLABeny DUGLASSCOT 2022 4 [facility] FAMOTIDINE 20MG TAB FAMOTIDI NE 20MG TAB Non-VA TAKE ONE TABLET BY MOUTH TWICE A DAY Jul 01, 2019 Non-VA Document ed by: PHIL ROSEN Document ed at: N. [facility] ORAL ACTIVE FIDE ROSEN 2018 N. [facility] FAMOTIDINE TAB FAMOTIDI NE TAB Non-VA TAKE Feb 05, 2023 Non-VA Document ed by: TANNER RIOS Document ed at: [facility] ACTIVE BRENNA RIOS 2022 [facility] FINASTERIDE 5MG TAB FINASTER BROOKLYN 5MG TAB Active TAKE ONE TABLET BY MOUTH ONE TIME EACH DAY FOR PROSTATE FOR PROSTATE Feb 18, 2024 90 Feb 18, 2025 [id number] May 09, 2024 KERRI PARK N. [facility] ORAL ACTIVE 02/18/2025 [id number] Masoud PARK 2023 90 N. [facility] FINASTERIDE 5MG TAB FINASTER BROOK[place]N 5MG TAB Disconti nued TAKE ONE TABLET BY MOUTH ONE TIME EACH DAY FOR PROSTATE FOR PROSTATE Sep 11, 2023 30 Sep 11, 2024 [id number] Jan 29, 2024 CHUY RICHARDSON N. [facility] ORAL DISCONT INUED (EDIT) 09/11/2024 [id number] Masoud RICHARDSON 2023 30 N. [facility] FISH OIL 1000MG (500MG DHA/EPA) CAP,ORAL FISH OIL 1000MG (500MG DHA/EPA) CAP,ORAL Non-VA TAKE 2 CAPSULES BY MOUTH TWICE A DAY TO LOWER TRIGLYCE RIDES Jul 13, 2023 Non-VA Document ed by: MARI KUMAR Document ed at: [facility] ORAL ACTIVE Carrie KUMAR 2022 [facility] [place] HYDROCHLORO THIAZIDE 25MG/LOSART AN POTASSIUM 100MG TAB HYDROCHL OROTHIAZ BROOKLYN 25MG/LOS JUSTINA POTASSIU M 100MG TAB Disconti nued TAKE 1 TABLET BY MOUTH ONE TIME EACH DAY FOR HIGH BLOOD PRESSURE FOR HIGH BLOOD PRESSURE Feb 23, 2023 60 Feb 24, 2024 [id number] May 06, 2023 KAYLIE WELLS E [facility] ORAL DISCONT INUED 02/24/2024 [id number] SAADIA COE E 2022 60 [facility] [place] MARINE LIPID (FISH OIL) CAP,ORAL MARINE LIPID (FISH OIL) CAP,ORAL Non-VA TAKE BY MOUTH Feb 05, 2023 Non-VA Document ed by: TANNER RIOS Document ed at: [facility] ORAL ACTIVE BRENNA RIOS 2022 [facility] METOPROLOL TARTRATE 25MG TAB METOPROL OL TARTRATE 25MG TAB Active TAKE ONE TABLET BY MOUTH EVERY 12 HOURS FOR BLOOD PRESSURE FOR BLOOD PRESSURE Jul 13, 2023 180 Jul 13, 2024 [id number] Apr 01, 2024 MARI KUMAR [facility] ORAL ACTIVE 07/13/2024 [id number] Carrie KUMAR 2022 180 [facility] [place] METOPROLOL TARTRATE TAB METOPROL OL TARTRATE TAB Non-VA TAKE BY MOUTH TWICE A DAY Feb 05, 2023 Non-VA Document ed by: TANNER RIOS Document ed at: [facility] ORAL ACTIVE BRENNA RIOS 2022 [facility] METRONIDAZO LE 0.75% CREAM,TOP METRONID AZOLE 0.75% CREAM,TO P Non-VA APPLY TOPICALL Y Feb 05, 2023 Non-VA Document ed by: TANNER RIOS Document ed at: [facility] TOPICA L ACTIVE BRENNA RIOS 2022 [facility] NIACIN TAB NIACIN TAB Non-VA TAKE Feb 05, 2023 Non-VA Document ed by: TANNER RIOS Document ed at: [facility] ACTIVE BRENNA RIOS 2022 [facility] NITROGLYCER IN TAB,SUBLING UAL NITROGLY CERIN TAB,SUBL INGUAL Non-VA DISSOLVE UNDER THE TONGUE EVERY 5 MINUTES FOR UP TO 3 DOSES IF NEEDED NEEDED Feb 05, 2023 Non-VA Document ed by: TANNER RIOS Document ed at: [facility] SUBLIN GUAL ACTIVE BRENNA RIOS 2022 [facility] NON VA MED NOT LISTED MISCELLANEO US NON VA MED NOT LISTED MISCELLA NEOUS Non-VA USE Feb 05, 2023 Non-VA Document ed by: TANNER RIOS Document ed at: [facility] ACTIVE BRENNA RIOS 2022 [facility] OXYCODONE HCL 5MG TAB OXYCODON E HCL 5MG TAB TAKE ONE TABLET BY MOUTH EVERY 4 HOURS NEEDED FOR PAIN FOR PAIN Mar 02, 2024 30 Apr 01, 2024 [id number] Mar 03, 2024 AIDEN HERNANDEZ [facility] ORAL 04/01/2024 [id number] NILESH HERNANDEZ 2023 30 [facility] OXYCODONE HCL 5MG TAB OXYCODON E HCL 5MG TAB TAKE ONE TABLET BY MOUTH EVERY 4 HOURS NEEDED FOR PAIN FOR PAIN Feb 20, 2023 30 Mar 28, 2023 [id number] Feb 26, 2023 THAI DOUGLAS [facility] ORAL 03/28/2023 [id number] Beny DOUGLAS 2022 30 [facility] POLYVINYL ALCOHOL 1.4% SOLN,OPH POLYVINY L ALCOHOL 1.4% SOLN,OPH Active INSTILL 2 DROPS IN OPERATIV E EYE EVERY 2 HOURS NEEDED FOR EYE IRRITATI ON FOR EYE IRRITATI ON Mar 02, 2024 60 Mar 03, 2025 [id number] Mar 16, 2024 AIDEN HERNANDEZ [place] [facility] OPHTHA LMIC ACTIVE 03/03/2025 [id number] NILESH HERNANDEZ K 2023 60 [place] [facility] [facility] POLYVINYL ALCOHOL 1.4% SOLN,OPH POLYVINY L ALCOHOL 1.4% SOLN,OPH INSTILL 2 DROPS IN BOTH EYES EVERY HOUR NEEDED FOR EYE IRRITATI ON FOR EYE IRRITATI ON Feb 20, 2023 15 Feb 27, 2024 [id number] Mar 25, 2023 THAI DOUGLAS [place] [facility] OPHTHA LMIC 02/27/2024 [id number] Beny DOUGLAS 2022 15 [place] [facility] PROBIOTIC [NON-VA] CAP,ORAL PROBIOTI C [NON-VA] CAP,ORAL Non-VA TAKE Jul 09, 2015 Non-VA Document ed by: Beny SANTORO Document ed at: [facility] ACTIVE CIELO SANTORO 2014 [facility] [place] TAMSULOSIN HCL 0.4MG CAP TAMSULOS IN HCL 0.4MG CAP Active TAKE ONE CAPSULE BY MOUTH ONE TIME EACH DAY FOR URINATIO N FOR URINATIO N Feb 18, 2024 90 Feb 18, 2025 [id number] May 09, 2024 KERRI PARK N. [facility] ORAL ACTIVE 02/18/2025 [id number] Masoud PARK 2023 90 N. [facility] TAMSULOSIN HCL 0.4MG CAP TAMSULOS IN HCL 0.4MG CAP Disconti nued TAKE ONE CAPSULE BY MOUTH ONE TIME EACH DAY FOR URINATIO N FOR URINATIO N Sep 11, 2023 30 Sep 11, 2024 [id number] Jan 29, 2024 CHUY RICHARDSON [facility]. [facility] ORAL DISCONT INUED (EDIT) 09/11/2024 [id number] Masoud RICHARDSON 2023 30 N. [facility] TRIAMCINOLO NE 0.1% OINT,TOP TRIAMCIN OLONE 0.1% OINT,TOP Non-VA APPLY TOPICALL Y Feb 05, 2023 Non-VA Document ed by: TANNER RIOS Document ed at: [facility] TOPICA L ACTIVE BRENNA RIOS 2022 [facility] Allergies, Adverse Reactions, Alerts Combined list of allergies from Department of Defense and Veterans Affairs facilities. It does not include entries that were removed or entered in error. Substance Category Reaction Severity Reaction type Status Date Reported Comments Source LISINOPRIL Propensity to adverse reactions to drug (finding) Cough active 3 [facility] Immunizations Combined list of available immunizations from the Department of Defense and Veterans Affairs facilities. 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 INFLUENZA, UNSPECIFIED FORMULATION 2021 88 complet ed [facility] COVID-19 (PFIZER), MRNA, LNP-S, PF, 30 MCG/0.3 ML DOSE, FABY-SUCROSE (AGES 12+ YEARS) 4 2021 217 complet ed [facility] COVID-19 (PFIZER), MRNA, LNP-S, PF, 30 MCG/0.3 ML DOSE 3 2020 208 complet ed N[facility] INFLUENZA, UNSPECIFIED FORMULATION 2020 88 complet ed [facility] ZOSTER RECOMBINANT 2020 187 complet ed [facility] [place] COVID-19 (PFIZER), MRNA, LNP-S, PF, 30 MCG/0.3 ML DOSE 2 2020 208 complet ed PFR; [id number]; 1 N. [facility] COVID-19 (PFIZER), MRNA, LNP-S, PF, 30 MCG/0.3 ML DOSE 1 2020 208 complet ed PFR; [id number]; 1 N. [place] [facility] TDAP 2019 115 complet ed [facility] [place] ZOSTER RECOMBINANT 2019 187 complet ed [facility] [place] INFLUENZA, UNSPECIFIED FORMULATION 2019 88 complet ed [facility] INFLUENZA, INJECTABLE, QUADRIVALENT, PRESERVATIVE FREE 2017 150 complet ed [facility] [place] INFLUENZA, INJECTABLE, QUADRIVALENT, PRESERVATIVE FREE 2016 150 complet ed [facility] [place] INFLUENZA, SEASONAL, INJECTABLE, PRESERVATIVE FREE 2015 140 complet ed [facility] [place] INFLUENZA, SEASONAL, INJECTABLE, PRESERVATIVE FREE 2014 140 complet ed [facility] [place] PNEUMOCOCCAL CONJUGATE PCV 13 2014 133 complet ed [facility] FLU,3 YRS (HISTORICAL) 2013 88 complet ed [facility] [place] Varicella Zoster (HISTORICAL) 2013 complet ed [facility] [place] PNEUMOCOCCAL, UNSPECIFIED FORMULATION 2012 109 complet ed [facility] [place] PNEUMOCOCCAL POLYSACCHARID E PPV23 2012 33 complet ed [facility] INFLUENZA, UNSPECIFIED FORMULATION 2012 88 complet ed [facility] INFLUENZA, UNSPECIFIED FORMULATION [address] [facility] TD(ADULT) UNSPECIFIED FORMULATION 2009 139 complet ed [facility] Results Combined list of recent chemistry, hematology [...] Jul 21, 2023 01:47 PM Reporting Lab: [facility] [address] [place] [address] Performing Lab: [facility] [address] [facility] [address] [facility] CREATINI NE(with eGFR) GLOMERULAR FILTRATION RATE/1.73 [...] 21, 2023 01:47 PM Reporting Lab: [facility] [address] [place] [address] Performing Lab: [facility] [address] [place] [phone] [facility] B12 COBALAMIN (VITAMIN B12) [MASS/VOLU ME] IN SERUM OR PLASMA 836 pg/mL 240 - 900 07/08 Specimen Type: SERUM No comment entered. Ordering Provider: TETE PACHECO Report Released Date/Time: Jun 23, 2023 02:55 PM Reporting Lab: [facility] [address] [place] [address] Performing Lab: [facility] [address] [place] [phone] [facility] COMPREHE NSIVE METABOLI C PANEL UREA NITROGEN [MASS/VOLU ME] IN SERUM OR PLASMA 13 mg/dL 9 - 20 07/08 Specimen Type: PLASMA [...] 10, 2022 10:59 AM Reporting Lab: [facility] [address] [facility] [address] Performing Lab: [facility] [address] [facility] [address] [facility] COMPREHE NSIVE METABOLI C PANEL SODIUM [...] 10, 2022 10:59 AM Reporting Lab: [facility] [id number] Performing Lab: [facility] [address] [facility] [address] [facility] COMPREHE NSIVE METABOLI C PANEL CHLORIDE [...] 10, 2022 10:59 AM Reporting Lab: [facility] [address] [place] [address] Performing Lab: [facility] [address] [place] [address] [facility] COMPREHE NSIVE METABOLI C PANEL CARBON [...] 10, 2022 10:59 AM Reporting Lab: [facility] [address] [place] [address] Performing Lab: [facility] [address] [place] [address] [facility] COMPREHE NSIVE METABOLI C PANEL PROTEIN [...] 10, 2022 10:59 AM Reporting Lab: [facility] [address] [facility] [address] Performing Lab: [facility] [address] [facility] [address] [facility] COMPREHE NSIVE METABOLI C PANEL ALBUMIN [...] 10, 2022 10:59 AM Reporting Lab: [facility] [address] [place] [phone] Performing Lab: [facility] [address] [facility] [address] [facility] COMPREHE NSIVE METABOLI C PANEL BILIRUBIN. [...] 10, 2022 10:59 AM Reporting Lab: [facility] [address] [facility] [address] Performing Lab: [facility] [address] [place] [phone] [facility] COMPREHE NSIVE METABOLI C PANEL ALKALINE [...] 10, 2022 10:59 AM Reporting Lab: [facility] [address] [place] [id number] Performing Lab: [facility] [address] [place] [address] [facility] COMPREHE NSIVE METABOLI C PANEL ASPARTATE [...] 10, 2022 10:59 AM Reporting Lab: [facility] [address] [place] [address] Performing Lab: [facility] [address] [place] [address] [facility] COMPREHE NSIVE METABOLI C PANEL ALANINE [...] 10, 2022 10:59 AM Reporting Lab: [facility] [address] [place] [address] Performing Lab: [facility] [address] COMPREHE NSIVE METABOLI C PANEL ANION [...] 10, 2022 10:59 AM Reporting Lab: [facility] [address] [place] [address] Performing Lab: [facility] [address] [place] [id number] COMPREHE NSIVE METABOLI C PANEL POTASSIUM [MOLES/VOL [...] 10, 2022 10:59 AM Reporting Lab: [facility] [address] [place] [id number] Performing Lab: [facility] [address] [facility] [id number] [facility] COMPREHE NSIVE METABOLI C PANEL CALCIUM [...] 10, 2022 10:59 AM Reporting Lab: [facility] [address] [place] [facility] [address] Performing Lab: [facility] [address] [facility] [address] [facility] COMPREHE NSIVE METABOLI C PANEL CREATININE [...] 10, 2022 10:59 AM Reporting Lab: [facility] [address] [facility] [address] Performing Lab: [facility] [address] [facility] [address] [facility] COMPREHE NSIVE METABOLI C PANEL GLUCOSE [...] 10, 2022 10:59 AM Reporting Lab: [facility] [address] [facility] [address] Performing Lab: [facility] [address] [facility] [address] [facility] COMPREHE NSIVE METABOLI C PANEL GLOMERULAR [...] 10, 2022 10:59 AM Reporting Lab: [facility] [address] [facility] [address] Performing Lab: [facility] [address] [facility] [address] [facility] HEMOGLOB IN %A1C PROFILE HEMOGLOBIN A1C/HEMOGL [...] 23, 2023 02:55 PM Reporting Lab: [facility] [address] [facility] [address] Performing Lab: [facility] [address] [facility] [address] [facility] LIPID PANEL CHOLESTERO L [MASS/VOLU ME] [...] 10, 2022 10:59 AM Reporting Lab: [facility] [address] [place] [address] Performing Lab: [facility] [address] [place] [address] [facility] LIPID PANEL TRIGLYCERI DE [MASS/VOLU ME] [...] 10, 2022 10:59 AM Reporting Lab: [facility] [address] [place] [address] Performing Lab: [facility] [address] [place] [address] [facility] LIPID PANEL CHOLESTERO L IN LDL [...] 10, 2022 10:59 AM Reporting Lab: [facility] [address] [place] [address] Performing Lab: [facility] [address] [place] [phone] [facility] LIPID PANEL CHOLESTERO L IN HDL [...] 10, 2022 10:59 AM Reporting Lab: [facility] [address] [place] [address] Performing Lab: [facility] [address] [place] [address] [facility] LIPID PANEL CHOLESTERO L IN LDL [...] 10, 2022 10:59 AM Reporting Lab: [facility] [address] [place] [address] Performing Lab: [facility] [address] [place] [address] [facility] MICROALB UMINURIA (ANUP) CREATININE [MASS/VOLU ME] IN URINE 67.1 mg/dL 07/08 Specimen Type: URINE Comment: ANUP/CR RATIO not calculated when ANUP <12.0 or U.CREAT <15 Ordering Provider: TETE PACHECO Report Released Date/Time: Jun 23, 2023 02:55 PM Reporting Lab: [facility] [address] [place] [address] Performing Lab: [facility] [address] [place] [address] [facility] MICROALB UMINURIA (ANUP) PROTEIN [MASS/VOLU ME] IN URINE 6 mg/dL <12 - 12 07/08 Specimen Type: URINE Comment: ANUP/CR RATIO not calculated when ANUP <12.0 or U.CREAT <15 Ordering Provider: TETE PACHECO Report Released Date/Time: Jun 23, 2023 02:55 PM Reporting Lab: [facility] [address] [place] [address] Performing Lab: [facility] [address] [place] [address] [facility] MICROALB UMINURIA (ANUP) MICROALBUM IN/CREATIN INE [MASS RATIO] IN URINE cancmg/g {creat} 07/08 Specimen Type: URINE Comment: ANUP/CR RATIO not calculated when ANUP <12.0 or U.CREAT <15 Ordering Provider: TETE PACHECO Report Released Date/Time: Jun 23, 2023 02:55 PM Reporting Lab: [facility] [address] [place] [address] Performing Lab: [facility] [address] [place] [address] [facility] MICROALB UMINURIA (ANUP) MICROALBUM IN [MASS/VOLU ME] IN URINE <12.0mg/ L 07/08 Specimen Type: URINE Comment: ANUP/CR RATIO not calculated when ANUP <12.0 or U.CREAT <15 Ordering Provider: TETE PACHECO Report Released Date/Time: Jun 23, 2023 02:55 PM Reporting Lab: [facility] [address] [place] [address] Performing Lab: [facility] [address] THE [address] PSA PROSTATE SPECIFIC AG [MASS/VOLU ME] IN [...] 23, 2023 03:42 PM Reporting Lab: [facility] [address] [place] [address] Performing Lab: [facility] [address] [place] [address] [facility] TOTAL, T D VITAMIN D+METABOLI EVERARDO [...] 23, 2023 02:55 PM Reporting Lab: [place] [address] [address] [phone] Per[facility]: [facility] [address] [place] [address] [facility] TSH-G,LC ,J,T THYROTROPI N [UNITS/VOL UME] IN [...] 10, 2022 10:59 AM Reporting Lab: [facility] [address] [place] [address] Performing Lab: [facility] [address] [place] [address] [facility] URINALYS IS COLOR OF URINE Light-Ye llow 07/08 Specimen Type: URINE No comment entered. Ordering Provider: TETE PACHECO Report Released Date/Time: Jun 23, 2023 02:55 PM Reporting Lab: [facility] [address] [place] [address] Performing Lab: [facility] [address] [place] [address] [facility] URINALYS IS SPECIFIC GRAVITY OF URINE 1.010 1.003 - 1.030 07/08 Specimen Type: URINE No comment entered. Ordering Provider: TETE PACHECO Report Released Date/Time: Jun 23, 2023 02:55 PM Reporting Lab: [facility] [address] [place] [address] Performing Lab: [facility] [address] [place] [address] [facility] URINALYS IS BILIRUBIN. TOTAL [PRESENCE] IN URINE BY TEST STRIP Negative mg/dL 07/08 Specimen Type: URINE No comment entered. Ordering Provider: TETE PACHECO Report Released Date/Time: Jun 23, 2023 02:55 PM Reporting Lab: [facility] [address] THE [address] Performing Lab: [facility] [address] [place] [address] [facility] URINALYS IS GLUCOSE [MASS/VOLU ME] IN URINE BY TEST STRIP Negative mg/dL 07/08 Specimen Type: URINE No comment entered. Ordering Provider: TETE PACHECO Report Released Date/Time: Jun 23, 2023 02:55 PM Reporting Lab: [facility] [address] [place] [address] Performing Lab: [facility] [address] [place] [address] [facility] URINALYS IS GLUCOSE [MASS/VOLU ME] IN URINE BY TEST STRIP Negative mg/dL 07/08 Specimen Type: URINE No comment entered. Ordering Provider: TETE PACHECO Report Released Date/Time: Jun 23, 2023 02:55 PM Reporting Lab: [facility] [address] [place] [address] Performing Lab: [facility] [address] [place] [address] [facility] URINALYS IS PROTEIN [MASS/VOLU ME] IN URINE BY TEST STRIP Negative mg/dL 07/08 Specimen Type: URINE No comment entered. Ordering Provider: TETE PACHECO Report Released Date/Time: Jun 23, 2023 02:55 PM Reporting Lab: [facility] [address] [place] [address] Performing Lab: [facility] [address] [place] [address] [facility] URINALYS IS PH OF URINE BY TEST STRIP 7.0 [pH] 5.0 - 9.0 07/08 Specimen Type: URINE No comment entered. Ordering Provider: TETE PACHECO Report Released Date/Time: Jun 23, 2023 02:55 PM Reporting Lab: [facility] [address] [place] [address] Performing Lab: [facility] [address] [place] [address] [facility] URINALYS IS LEUKOCYTES [#/AREA] IN URINE SEDIMENT BY MICROSCOPY HIGH POWER FIELD 2 /[HPF] 0 - 5 07/08 Specimen Type: URINE No comment entered. Ordering Provider: TETE PACHECO Report Released Date/Time: Jun 23, 2023 02:55 PM Reporting Lab: [facility] [address] [place] [address] Performing Lab: [facility] [address] [place] [address] [facility] URINALYS IS MUCUS [PRESENCE] IN URINE SEDIMENT BY LIGHT MICROSCOPY RARE/[HP F] 07/08 Specimen Type: URINE No comment entered. Ordering Provider: TETE PACHECO Report Released Date/Time: Jun 23, 2023 02:55 PM Reporting Lab: [facility] [address] [facility] [place] [address] Performing Lab: [facility] [address] [place] [address] [facility] URINALYS IS ERYTHROCYT ES [#/AREA] IN URINE SEDIMENT BY MICROSCOPY HIGH POWER FIELD 60 /[HPF] 0 - 4 07/08 H Specimen Type: URINE No comment entered. Ordering Provider: TETE PACHECO Report Released Date/Time: Jun 23, 2023 02:55 PM Reporting Lab: [facility] [address] [place] [address] Performing Lab: [facility] [address] [place] [address] [facility] URINALYS IS HEMOGLOBIN [PRESENCE] IN URINE BY TEST STRIP 0.50 mg/dL 07/08 Specimen Type: URINE No comment entered. Ordering Provider: TETE PACHECO Report Released Date/Time: Jun 23, 2023 02:55 PM Reporting Lab: [facility] [address] [place] [address] Performing Lab: [facility] [address] [place] [address] [facility] URINALYS IS NITRITE [PRESENCE] IN URINE BY TEST STRIP Negative 07/08 Specimen Type: URINE No comment entered. Ordering Provider: TETE PACHECO Report Released Date/Time: Jun 23, 2023 02:55 PM Reporting Lab: [facility] [address] [place] [address] Performing Lab: [facility] [address] [place] [address] [facility] URINALYS IS LEUKOCYTE ESTERASE [PRESENCE] IN URINE BY TEST STRIP Negative 07/08 Specimen Type: URINE No comment entered. Ordering Provider: TETE PACHECO Report Released Date/Time: Jun 23, 2023 02:55 PM Reporting Lab: [facility] [address] [place] [address] Performing Lab: [facility] [address] [place] [address] [facility] URINALYS IS CLARITY OF URINE Clear 07/08 Specimen Type: URINE No comment entered. Ordering Provider: TETE PACHECO Report Released Date/Time: Jun 23, 2023 02:55 PM Reporting Lab: [facility] [address] [place] [address] Performing Lab: [facility] [address] [place] [address] [facility] URINALYS IS UROBILINOG EN [MASS/VOLU ME] IN URINE BY TEST STRIP Normalmg /dL 0.0 - 1.99 07/08 Specimen Type: URINE No comment entered. Ordering Provider: TETE PACHECO Report Released Date/Time: Jun 23, 2023 02:55 PM Reporting Lab: [facility] [address] [place] [address] Performing Lab: [facility] [address] [place] [address] [facility] URINALYS IS SPERMATOZO A [#/VOLUME] IN URINE BY AUTOMATED COUNT OCC/[HPF ] 07/08 Specimen Type: URINE No comment entered. Ordering Provider: TETE PACHECO Report Released Date/Time: Jun 23, 2023 02:55 PM Reporting Lab: [facility] [address] [facility] [address] Performing Lab: [facility] [address] [facility] [address] [facility] Vital Signs Combined list of inpatient and outpatient Vital Signs from Department of Defense and Veterans Affairs, ranging from 12 months to all on record, depending upon the facility. Vital Sign Value Date Comments Source SYSTOLIC BLOOD PRESSURE 135 03/03/2024 09:35:36 [facility] DIASTOLIC BLOOD PRESSURE 86 03/03/2024 09:35:36 [facility] PULSE OXIMETRY 98 03/03/2024 09:35:36 [facility] TEMPERATURE 97.2 03/03/2024 09:35:36 [facility] PULSE 103 03/03/2024 09:35:36 [facility] RESPIRATION 18 03/03/2024 09:35:36 [facility] SYSTOLIC BLOOD PRESSURE 172 09/02/2023 11:51:42 [place] [facility] DIASTOLIC BLOOD PRESSURE 95 09/02/2023 11:51:42 [place] PULSE OXIMETRY 99% 09/02/2023 11:51:42 N [place] PAIN 0 09/02/2023 11:51:42 [place] [facility] TEMPERATURE 97.7 09/02/2023 11:51:42 [place] PULSE 81 09/02/2023 11:51:42 N[facility]/S[facility] SYSTOLIC BLOOD PRESSURE 147 07/13/2023 09:22:00 [facility] DIASTOLIC BLOOD PRESSURE 73 07/13/2023 09:22:00 [facility] Encounters Combined list of: 1) Encounters from Department of Veterans Affairs facilities going back up to thelast 18 months. 2) Encounters from the Department of Defense facilities going back up to 280 months. Location Location Details Encounter Type Encounter Number Reason For Visit Attending Provider ADM Date DC Date Status Disposition Source [facility] Outpatient Encounter [id number] 11/27 [facility] [place] [facility] Outpatient Encounter [id number] 11/27 [facility] Outpatient Encounter [id number] 12/01 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
CAYCOLTON,CENK 01/21 [facility] ELECTROCAR DIOGRAM TRACING [id number] Diagnos is: ICD-10- CM Z01.810 Encount er for preproc edural cardiov ascular examina tion
TOSHA ZAVALA 02/05 [facility] OFFICE O/P EST MOD 30-39 MIN [id number] Diagnos is: ICD-10- CM Z01.818 Encount er for other preproc edural examina tion
CAROL RIOS 02/05 [facility] Outpatient Encounter [id number] Diagnos is: ICD-10- CM Z01.818 Encount er for other preproc edural examina tion
REVA GARDINER 02/18 [facility] Outpatient Encounter [id number] TISHA MILLER 02/18 [facility] Outpatient Encounter [id number] SYSTEM,[facility] -[facility] 02[facility] OFFICE O/P NEW LOW 30-44 MIN [id number] Diagnos is: ICD-10- CM Z01.818 Encount er for other preproc edural examina tion
SHU SYLVESTER E E 02/26 [facility] Outpatient Encounter [id number] Atif ROSENBERG 02/26 [facility] Outpatient Encounter [id number] SYSTEM,CIS -ARK 02/26 [facility] Outpatient Encounter [id number] 02/26 [place] [facility] Outpatient Encounter [id number] SHU SYLVESTER E E 02/26 [facility] REVISION OF EYELID [id number] Diagnos is: ICD-10- CM 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
SHU SYLVESTER E E 02/26 [facility] [place] [facility] Outpatient Encounter [id number] 02/26 [place] [facility] POSTOP FOLLOW-UP VISIT [id number] Diagnos is: ICD-10- CM Z48.817 Encntr for surgica l aftcr fol surgery on the skin, subcu<b r/> STELLA LODTrae 03/11 [facility] POSTOP FOLLOW-UP VISIT [id number] Diagnos is: ICD-10- CM Z48.817 Encntr for surgica l aftcr fol surgery on the skin, subcu<b r/> ME [facility] 04/08 [facility] Out[facility] Encounter [id number] 05/26 [facility] Outpatient Encounter [id number] LEVAR ABEL 06/22 [facility] OFF/OP EST DECEMBER X REQ PHY/QHP [id number] Diagnos is: ICD-10- CM 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 OFFICE O/P EST MOD 30-39 MIN [id number] Diagnos is: ICD-10- CM R31.9 Hematur ia, 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
TEENA KUMAR 07/13 [facility] Outpatient Encounter [id number] VIVEK VIDALES 07/21 [facility] HC PRO PHONE CALL 5-10 MIN [id number] Diagnos is: ICD-10- CM G47.33 Obstruc tive sleep apnea (adult) ([facility] melanie)
CHANI CAMPOVERDE 08/28 [facility] Outpatient Encounter [id number] TEENA KUMAR 08/31 [facility] [place] [place] [facility] En[facility] [id number] LUPE DUBONTEENA JOSE 08/31 [place] [place] [facility] [place] [facility] Out[facility] Encounter [id number] LUPE DUBONTEENA JOSE 08/31 [facility] Outpatient Encounter [id number] 09/01 [facility] OFFICE O/P NEW MOD 45 MIN [id number] Diagnos is: ICD-10- CM R31.0 Gross hematur ia
BIA RICHARDSON 09/02 [facility] Out[facility] Encounter [id number] 09/02 [facility] En[facility] [id number] 09/02 [facility] Encounter [id number] ASTRID HACKETT 09/02 [facility] En[facility] [id number] ASTRID HACKETT 09/02 [facility] Out[facility] Encounter [id number] ASTRID HACKETT 09/03 [facility] Out[facility] Encounter [id number] LUPE DUBONTEENA JOSE 09/03 [facility] Out[facility] Encounter [id number] 09/08 [facility] Outpatient Encounter [id number] OLEG HACKETTLL 09/08 N[facility] Outpatient Encounter [id number] OLEG HACKETTLL 09/08 N[facility] N[facility] Outpatient Encounter [id number] Diagnos is: ICD-10- CM G47.33 Obstruc tive sleep apnea (adult) (pediat mleanie)
MARIELLA ANDRADE 09/08 N[facility] N. 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
JENNYFER,WAYNE LEXII A [facility] [id number] Diagnos is: ICD-10- CM G47.33 Obstruc tive sleep apnea (adult) (pediat melanie)
CHANI CAMPOVERDE 10/13 [facility] [place] [facility] [place] Outpatient Encounter [id number] [facility] SPECIAL SUPPLIES PHYS/QHP [id number] Diagnos is: ICD-10- CM G47.33 Obstruc tive sleep apnea (adult) (pediat melanie)
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
K[place]WONG 01/12 [facility] OFFICE O/P EST MOD 30 MIN [id number] [id number] Diagnos is: ICD-10- CM H02.834 Dermato chalasi s of left upper eyelid< br/> [facility] 01/12 [facility] Outpatient Encounter [id number] [facility] Outpatient Encounter [id number] 01/21 [facility] Outpatient Encounter [id number] Diagnos is: ICD-10- CM N40.1 Benign prostat ic hyperpl óscar with lower urinary tract symp
[place] 02/17 [facility] OFFICE O/P EST MOD 30 MIN [id number] Diagnos is: ICD-10- CM H02.34 Blephar ochalas is left upper eyelid< br/> [facility]03 [facility] Outpatient Encounter [id number] 03/03 [facility] Outpatient Encounter [id number] 03/11 [facility] FOLLOW-UP VISIT [id number] Diagnos is: ICD-10- CM Z48.89 Encount er for other specifi ed surgica l afterca re
[place],BR CAROLINA S 03/16 [facility] Procedures Combined list of: 1) Procedures from Department of Veterans Affairs facilities going back up to thelast 18 months, not all [place] non-surgical procedures are included; 2) All procedures from the Department of Defense facilities. Procedure Procedure Type Code Date Perfomer Comments Sourc e Bilateral upper blepharoplasty, transpalpebral browpexy with endotine, Levator advancement, tarsal strip/canthoplasty REVISION OF UPPER EYELID [id number] [facility] Social History Combined list of available smoking, tobacco, and other social history from Department of Defense and Veterans Affairs facilities. Social History Type Response Date Comment Sourc e Tobacco smoking status NHIS [place]-TOBACCO FORMER USER 07/13/2023 [facility] History of tobacco use [place]-TOBACCO QUIT 5 TO < 15 YRS 07/13/2023 [facility] History of tobacco use [place]-TOBACCO QUIT 5 TO < 15 YRS 07/10/2022 [facility] History of tobacco use [place]-TOBACCO FORMER USER 07/11/2021 [facility] History of tobacco use VA-TOBACCO FORMER USER 07/05/2020 [facility] History of tobacco use PRIOR TOBACCO USE CESSATION DATE 09/01/2017 Rinku AMARAL/Bowen Kaur [facility] History of tobacco use TOBACCO PACK YEARS 08/31/2017 [facility] History of tobacco use PRIOR TOBACCO USE CESSATION DATE 10/24/2016 NShannan AMARAL/Bowen Kaur [facility] History of tobacco use TOBACCO PACK YEARS 10/23/2016 [facility] History of tobacco use PRIOR TOBACCO USE CESSATION DATE 07/09/2016 NShannan AMARAL/Bowen Kaur [facility] History of tobacco use TOBACCO PACK YEARS 07/09/2016 [facility] History of tobacco use PRIOR TOBACCO USE CESSATION DATE 07/09/2015 Rinku AMARAL/Bowen Kaur [facility] History of tobacco use TOBACCO PACK YEARS 07/09/2015 [facility] History of tobacco use CURRENT TOBACCO USE 07/12/2014 [facility] History of tobacco use CURRENT TOBACCO USE 07/07/2013 [facility] Plan of Care List of future care activities from Department of Veterans Affairs facilities. Additional future care activities may be listed in the Assessment and Plan section. Date/Time Care Activity Care Activity Detail Facili ty 07/05/2024 AMBULATORY - NONE AMBULATORY - NONE [facility] 07/12/2024 AMBULATORY - MEDICINE AMBULATORY - MEDICI NE [facility] 08/29/2024 AMBULATORY - NONE AMBULATORY - NONE [facility] 10/17/2024 AMBULATORY - MEDICINE AMBULATORY - MEDICI NE Rinku AMARAL/Bowen JOHNSON [facility] 07/05/2024 Laboratory - Documentation Supervisor ry Order COMPREHENSIVE METABOLIC PANEL BLOOD PLASMA SP [facility] 07/05/2024 Laboratory - Documentation Supervisor ry Order CBC (DIFF&PLT) BLOOD SP [facility] 07/05/2024 Laboratory - Documentation Supervisor ry Order LIPID PANEL BLOOD PLASMA SP [facility] 07/05/2024 Laboratory - Documentation Supervisor ry Order TSH-G,LC,J,T BLOOD PLASMA SP [facility] 07/05/2024 Laboratory - Documentation Supervisor ry Order HEMOGLOBIN %A1C PROFILE BLOOD SP [facility] 07/05/2024 Laboratory - Documentation Supervisor ry Order MICROALBUMINURIA(ANUP) URINE SP [facility] Advance Directives List of completed, amended, or rescinded Advance Directives on record at Department of [facility] facilities. An actual copy of the Directive is not included. Date Advance Directive Provider Source 07/13/2023 ADVANCE DIRECTIVE NO TIFICATION AND SCREENING ROSA M SUAZO [facility] 07/10/2022 ADVANCE DIRECTIVE NO TIFICATION AND SCREENING ASTRID BHAT [facility] 07/05/2020 ADVANCE DIRECTIVE NO TIFICATION AND SCREENING DIPTI GILES [facility] 07/01/2019 ADVANCE DIRECTIVE DISCUSSION BETTY BROTHERS F [facility] 06/30/2018 ADVANCE DIRECTIVE DISCUSSION BETTY BROTHERS F [facility] 09/01/2017 ADVANCE DIRECTIVE DISCUSSION BETTY BROTHERS F [facility] 10/24/2016 ADVANCE DIRECTIVE DISCUSSION BETTY BROTHERS F [facility] 07/09/2016 ADVANCE DIRECTIVE DISCUSSION BETTY BROTHERS F [facility] 07/22/2013 ADVANCE [address]IVE [address]ZAN[address] HOOK [facility]
[2024-05-25 14:41] LABS: Albumin* 4.6 g/dL (3.3-5.0)
[2024-05-25 14:44] LABS: Alanine Aminotransferase* 354 U/L (4-50); Alkaline Phosphatase* 159 U/L (40-150); Aspartate Amino Transferase* 167 U/L (12-35); Bilirubin Direct* 0.8 mg/dL (0.0-0.5); Bilirubin Total* 1.9 mg/dL (0.1-1.5); Total Protein* 7.7 g/dL (6.0-8.3)
[2024-05-25 15:04] LABS: PCR FLU A Negative PCR FLU A (Negative); PCR FLU B Negative PCR FLU B (Negative); SARS PCR* Negative SARS-CoV-2 (Negative)
[2024-05-25] MEDS: 0.9 % SODIUM CHLORIDE 1000 ml 1,000 ML IV (15:04)
[2024-05-25] MEDS: KETOROLAC 15 MG/ML inj IVP (15:07)
[2024-05-25] MEDS: MORPHINE 4 MG/ML INJ IVP ×2 (15:10→17:54)
[2024-05-25] MEDS: ONDANSETRON 2 MG/ML inj 4 MG IVP (15:15)
--- NOTE | 2024-05-25 15:22 | CRLHL7_ITS ---
For Patients: As a result of the Century Cures Act, medical imaging exams and procedure reports are released immediately into your electronic medical record. You may view this report before your referring provider. If you have questions, please contact your health care provider. INDICATION: Retained common bile duct stone/cholangitis. TECHNIQUE: MRI and MRCP of the abdomen without IV contrast. COMPARISON: Abdominal ultrasound 05/25/2024. FINDINGS: Noncirrhotic configuration of the liver. No significant hepatic steatosis. Few subcentimeter T2 hyperintense liver lesions are incompletely characterized without IV contrast but likely benign. The unenhanced spleen, pancreas, kidneys, and adrenal glands are normal in appearance. No dilation of the main pancreatic duct. No peripancreatic edema. No hydronephrosis. There is gallbladder wall thickening and mild pericholecystic edema suggesting inflammation. The gallbladder is not significantly distended. Few small gallstones, some of which extend into the gallbladder neck. The common bile duct measures 7 mm in diameter, with a 3 mm hypodense filling defect in the distal common bile duct suspicious for choledocholithiasis (series 15 image 59 and series 7 image 21). No intrahepatic bile duct dilation. The cystic duct appears normal. No bowel dilation. Colonic diverticulosis. No free fluid or lymphadenopathy in the upper abdomen. Infrarenal abdominal aortic aneurysm measuring 3.1 cm in AP dimension. IMPRESSION: 1. Cholelithiasis with gallbladder wall thickening and mild pericholecystic edema suggesting inflammation. 2. Mild dilation of the common bile duct with a 3 mm stone in the distal duct. 3. Infrarenal abdominal aortic aneurysm measuring 3.1 cm. Dictated by Doris Rowley MD @ 05/25/2024 6:22:52 PM (Electronically Signed)
[2024-05-25] MEDS: ACETAMINOPHEN 500 MG TABLET 1000 MG PO (17:51)
[2024-05-25] MEDS: PIPERACILLIN/TAZOBACTAM 4.5 GM in 0.9 % SODIUM CHLORIDE Mini-bag 100 ML IVPB (18:31)
--- NOTE | 2024-05-25 19:44 | PC.NURSE ---
called Aracely hernandez [id number] to give nurse to nurse report, requested to call back in 15 minutes.
[2024-05-25] MEDS: 0.9 % SODIUM CHLORIDE 1000 ml 1,000 ML 250 ML IV (20:09)
== END 2024-05-25 21:03 | disposition short-term general hospital (02) ==
PROVIDERS: Emergency Provider Family Medicine; PCP Family Medicine
DX: K80.42 Calculus of bile duct with acute cholecystitis without obstruction (principal); E87.1 Hypo-osmolality and hyponatremia; R65.10 Systemic inflammatory response syndrome (SIRS) of non-infectious origin without acute organ dysfunction
CPT/HCPCS: 36415; 74181; 76705; 80076; 87040; 87631; 96365; 96375; 99284; 99285; A9270; J1885; J2270; J2405; J2543; J7030

== ENCOUNTER 2024-05-25 20:43 | Outpatient (CLI) | payer MEDICARE, OTHER, SELFPAY ==
--- OUTSIDE RECORDS SUMMARY | 2024-05-29 14:13 | XMS_ITS | Continuity of Care Document ---
Author Name [facility] Organization [facility] Care Team Providers Care Bankruptcy Law Specialist Name Role Phone [facility] Unavailable Unavailable Problems Combined list of problems [...] 1 year (ordered by Ms Hernandez). N. [place] Chronic kidney disease stage 3A Active Condition N. [facility] Chronic low back pain Active Condition N. [facility] Coronary atherosclerosis Active Condition N. [facility] Ex-cigarette smoker Active Condition [facility] Exposure to potentially hazardous substance Active Condition [facility] Exposure to potentially hazardous substance ([facility] [id number]) Active Condition Nov 26 4 Entered By: JAIME ROTHMAN Comment: Entered automatically through [facility] Problem List documentation program [facility] Hearing loss Active Condition [facility] Hematuria Active Condition [facility] Herbicide poisoning Active Condition [facility] History of heartburn Active Condition [facility] Hyperlipidemia Active Condition [facility] Hypertension Active Condition [facility] Lower urinary tract symptoms due to benign prostatic hypertrophy Active Condition [facility] Multiple nodules of lung Active Condition Aug 07, 2020 Entered By: JEFFERSON KOCH Comment: LDCT 08/06/20: Rec repeat in one year (ordered). [facility] Obesity Active Condition [facility] Osteoarthritis Active Condition [facility] Tobacco user Active Condition Jul 05, 2020 Entered By: JEFFERSON KOCH Comment: Quit ~ 2013. [facility] Vitamin D deficiency Active Condition [facility] Diarrhea (SNOMED CT [id number]) Inactive Condition 07/12/2014 [facility] Knee pain Inactive Condition 07/01/2018 [facility] Lactose intolerance Inactive Condition 07/01/2018 [facility] Seborrheic dermatitis Inactive Condition 07/01/2018 [facility] Tinnitus Inactive Condition 07/01/2018 [facility] Diagnosis: ICD-10-CM Z48.89 Encounter for other specified surgical aftercare Active [facility] Diagnosis: ICD-10-CM H02.34 Blepharochalasis left upper eyelid Active Diagnosis [facility] Diagnosis: ICD-10-CM N40.1 Benign prostatic hyperplasia with lower urinary tract symp Active Diagnosis N. [facility] [place] Diagnosis: ICD-10-CM Z71.9 Counseling, unspecified Active Diagnosis [facility] Diagnosis: ICD-10-CM H02.834 Dermatochalasis of left upper eyelid Active Diagnosis [facility] Diagnosis: ICD-10-CM G47.33 Obstructive sleep apnea (adult) (pediatric) Active Diagnosis N. [facility] [place] Diagnosis: ICD-10-CM R31.0 Gross hematuria Active Diagnosis N. 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 Diagnosis [facility] Diagnosis: ICD-10-CM Z01.818 Encounter for other preprocedural examination Active Diagnosis [facility] Diagnosis: ICD-10-CM Z01.810 Encounter for preprocedural cardiovascular examination Active Diagnosis [facility] Diagnosis: ICD-10-CM H57.813 Brow ptosis, bilateral Active Diagnosis [facility] Medications Combined list of outpatient medications from [...] HS PRN ORAL ACTIVE HLAING,MO [place] 2014 [facility] ACETAMINOPH EN 500MG TAB TAKE TWO TABLETS BY MOUTH EVERY 6 HOURS NEEDED FOR PAIN ORAL 03/28/2023 [id number] 3 Beny DOUGLAS 2022 40 [facility] AMLODIPINE BESYLATE 2.5MG TAB TAKE ONE TABLET BY MOUTH EVERY 24 HOURS FOR BLOOD PRESSURE ORAL ACTIVE 07/13/2024 [id number] 4 Carrie KUMAR 2022 90 [facility] AMLODIPINE TAB TAKE BY MOUTH ORAL ACTIVE BRENNA RIOS 2022 [facility] ASPIRIN 81MG TAB,CHEWABL E CHEW ONE TABLET BY MOUTH ORAL ACTIVE BRENNA RIOS 2022 [facility] ASPIRIN 81MG TAB,EC TAKE ONE TABLET BY MOUTH ONE TIME EACH DAY ORAL ACTIVE CIELO SANTORO 2017 N. [place] [facility] ATORVASTATI N [place] 40MG TAB TAKE ONE TABLET BY MOUTH EVERY DAY ORAL ACTIVE BRENNA RIOS 2022 [facility] ATORVASTATI N [place] 80MG TAB TAKE ONE-HALF TABLET BY MOUTH ONE TIME EACH DAY FOR CHOLESTE ROL ORAL ACTIVE 07/13/2024 [id number] 4 Carrie KUMAR 2022 45 [facility] CARBOXYMETH YLCELLULOSE NA 0.25% SOLN,OPH INSTILL 2 DROPS IN BOTH EYES TWICE A DAY NEEDED FOR EYE DRYNESS AND IRRITATI ON OPHTHA LMIC 04/08/2024 [id number] 3 Beny DOUGLAS 2022 15 [facility] CELECOXIB 200MG CAP TAKE ONE CAPSULE BY MOUTH TWICE A DAY FOR PAIN ORAL 04/01/2024 [id number] 4 NILESH HERNANDEZ 2023 14 [facility] CEPHALEXIN 500MG CAP TAKE ONE CAPSULE BY MOUTH EVERY 6 HOURS FOR INFECTIO US PROPHYLA XIS ORAL 04/01/2024 [id number] 4 NILESH HERNANDEZ 2023 12 [facility] CHOLECALCIF FRANCINE 25MCG (1,000UNIT) TAB TAKE TWO TABLETS BY MOUTH ORAL ACTIVE BRENNA RIOS 2022 [facility] CYANOCOBALA MIN TAB TAKE ACTIVE BRENNA RIOS 2022 [facility] DEXAMETHASO NE NA PHOSPHATE 0.1% SOLN,OPH INSTILL 2 DROPS IN OPERATIV E EYE EVERY 6 HOURS FOR INFLAMMA TION OPHTHA LMIC 03/28/2023 [id number] 3 Beny DOUGLAS 2022 5 [facility] DICLOFENAC NA 1% GEL,TOP APPLY 4 GRAMS TOPICALL Y FOUR TIMES A DAY NEEDED TO KNEES FOR PAIN (MEASURE DOSE USING SUPPLIED DOSING CARD) TOPICA L ACTIVE 09/03/2024 [id number] 4 Carrie KUMAR 2023 200 [facility] ERYTHROMYCI N 0.5% OINT,OPH APPLY A THIN LAYER TO INCISION (S) TO LEFT EYE FOUR TIMES A DAY TO PREVENT INFECTIO N OPHTHA LMIC 04/01/2024 [id number] 4 NILESH HERNANDEZ K 2023 1 [facility] ERYTHROMYCI N 0.5% OINT,OPH APPLY A THIN LAYER TO INCISION (S) TO OPERATIV E EYE FOUR TIMES A DAY FOR WOUND CARE OPHTHA LMIC 02/27/2024 [id number] 3 Beny DOUGLAS 2022 4 [facility] FAMOTIDINE 20MG TAB TAKE ONE TABLET BY MOUTH TWICE A DAY ORAL ACTIVE FIDE ROSEN 2018 N. [place] [facility] FAMOTIDINE TAB TAKE ACTIVE BRENNA RIOS 2022 [facility] FINASTERIDE 5MG TAB TAKE ONE TABLET BY MOUTH ONE TIME EACH DAY FOR PROSTATE ORAL ACTIVE 02/18/2025 [id number] 4 Masoud P[place] 2023 90 [facility] [place] [facility] FINASTERIDE 5MG TAB TAKE ONE TABLET BY MOUTH ONE TIME EACH DAY FOR PROSTATE ORAL DISCONT INUED (EDIT) 09/11/2024 [id number] 4 Masoud RICHARDSON THO 2023 30 [facility] [place] [facility] FISH OIL 1000MG (500MG DHA/EPA) CAP,ORAL TAKE 2 CAPSULES BY MOUTH TWICE A DAY ORAL ACTIVE Carrie KUMAR 2022 [facility] HYDROCHLORO THIAZIDE 25MG/LOSART AN POTASSIUM 100MG TAB TAKE 1 TABLET BY MOUTH ONE TIME EACH DAY FOR HIGH BLOOD PRESSURE ORAL DISCONT INUED 02/24/2024 [id number] 3 SAADIA COE E 2022 60 [facility] MARINE LIPID (FISH OIL) CAP,ORAL TAKE BY MOUTH ORAL ACTIVE BRENNA RIOS 2022 [facility] METOPROLOL TARTRATE 25MG TAB TAKE ONE TABLET BY MOUTH EVERY 12 HOURS FOR BLOOD PRESSURE ORAL ACTIVE 07/13/2024 [id number] 4 Carrie KUMRA 2022 180 [facility] METOPROLOL TARTRATE TAB TAKE BY MOUTH TWICE A DAY ORAL ACTIVE BRENNA RIOS 2022 [facility] METRONIDAZO LE 0.75% CREAM,TOP APPLY TOPICALL Y TOPICA L ACTIVE BRENNA RIOS 2022 [facility] NIACIN TAB TAKE ACTIVE Enrique RIOS 2022 [facility] NITROGLYCER IN TAB,SUBLING UAL DISSOLVE UNDER THE TONGUE EVERY 5 MINUTES FOR UP TO 3 DOSES IF NEEDED NEEDED SUBLIN GUAL ACTIVE BRENNA RIOS 2022 [facility] MED NOT LISTED MISCELLANEO US USE ACTIVE BRENNA RIOS 2022 [facility] OXYCODONE HCL 5MG TAB TAKE ONE TABLET BY MOUTH EVERY 4 HOURS NEEDED FOR PAIN ORAL 04/01/2024 [id number] 4 NILESH HERNANDEZ 2023 30 [place] [facility] OXYCODONE HCL 5MG TAB TAKE ONE TABLET BY MOUTH EVERY 4 HOURS NEEDED FOR PAIN ORAL 03/28/2023 [id number] 3 Beny DOUGLAS 2022 30 [facility] POLYVINYL ALCOHOL 1.4% SOLN,OPH INSTILL 2 DROPS IN OPERATIV E EYE EVERY 2 HOURS NEEDED FOR EYE IRRITATI ON OPHTHA LMIC ACTIVE 03/03/2025 [id number] 4 CAYNILESH SEGURA K 2023 60 [facility] POLYVINYL ALCOHOL 1.4% SOLN,OPH INSTILL 2 DROPS IN BOTH EYES EVERY HOUR NEEDED FOR EYE IRRITATI ON OPHTHA LMIC 02/27/2024 [id number] 3 Beny DOUGLAS 2022 15 [facility] PROBIOTIC [NON-VA] CAP,ORAL TAKE ACTIVE CIELO SANTORO [place] 2014 [facility] TAMSULOSIN HCL 0.4MG CAP TAKE ONE CAPSULE BY MOUTH ONE TIME EACH DAY FOR URINATIO N ORAL ACTIVE 02/18/2025 [id number] 4 Masoud [place] K 2023 90 N. [place] [facility] TAMSULOSIN HCL 0.4MG CAP TAKE ONE CAPSULE BY MOUTH ONE TIME EACH DAY FOR URINATIO N ORAL DISCONT INUED (EDIT) 09/11/2024 [id number] 4 Masoud RICHARDSON 2023 30 N. [place] [facility] TRIAMCINOLO NE 0.1% OINT,TOP APPLY TOPICALL Y TOPICA L ACTIVE BRENNA RIOS 2022 [facility] Allergies, Adverse Reactions, Alerts Combined list of allergies from Department of Defense and Veterans Affairs facilities. It does not include entries that were removed or entered in error. Substance Category Reaction Severity Reaction type Status Date Reported Comments Source LISINOPRIL Propensity to adverse reactions to drug (finding) Cough active 3 [facility] Immunizations Combined list of available immunizations from the Department of Defense and Veterans Affairs facilities. Immunization Series Date Given Administered By Site Reaction Lot Number CVX Code Drug Respiratory Tech Status Comments Source INFLUENZA, UNSPECIFIED FORMULATION 2022 88 complet ed [facility] INFLUENZA, UNSPECIFIED FORMULATION 2021 88 complet ed [facility] COVID-19 (PFIZER), MRNA, LNP-S, PF, 30 MCG/0.3 ML DOSE, FABY-SUCROSE (AGES 12+ YEARS) 4 2021 217 complet ed [facility] COVID-19 (PFIZER), MRNA, LNP-S, PF, 30 MCG/0.3 ML DOSE 3 2020 208 complet ed [facility] INFLUENZA, UNSPECIFIED FORMULATION 2020 88 complet ed [facility] ZOSTER RECOMBINANT 2020 187 complet ed [facility] COVID-19 (PFIZER), MRNA, LNP-S, PF, 30 MCG/0.3 ML DOSE 2 2020 208 complet ed PFR; [id number]; 1 [facility] COVID-19 (PFIZER), MRNA, LNP-S, PF, 30 MCG/0.3 ML DOSE 1 2020 208 complet ed PFR; [id number]; 1 [facility] TDAP 2019 115 complet ed [facility] ZOSTER RECOMBINANT 2019 187 complet ed [facility] INFLUENZA, UNSPECIFIED FORMULATION 2019 88 complet ed [facility] INFLUENZA, INJECTABLE, QUADRIVALENT, PRESERVATIVE FREE 2017 150 complet ed [facility] INFLUENZA, INJECTABLE, QUADRIVALENT, PRESERVATIVE FREE 2016 150 complet ed [facility] INFLUENZA, SEASONAL, INJECTABLE, PRESERVATIVE FREE 2015 140 complet ed [facility] INFLUENZA, SEASONAL, INJECTABLE, PRESERVATIVE FREE 2014 140 complet ed [facility] PNEUMOCOCCAL CONJUGATE PCV 13 2014 133 complet ed [facility] FLU,3 YRS (HISTORICAL) 2013 88 complet ed [facility] Varicella Zoster (HISTORICAL) 2013 complet ed [facility] PNEUMOCOCCAL, UNSPECIFIED FORMULATION 2012 109 complet ed [facility] PNEUMOCOCCAL POLYSACCHARID E PPV23 2012 33 complet ed N. [place] [facility] INFLUENZA, UNSPECIFIED FORMULATION 2012 88 complet ed N. [facility] INFLUENZA, UNSPECIFIED FORMULATION 2011 88 complet ed [facility] TD(ADULT) UNSPECIFIED FORMULATION 2009 139 complet ed N. [place] [facility] Results Combined list of recent chemistry, [...] 21, 2023 01:47 PM Reporting Lab: [facility] [address] [facility] [address] Performing Lab: [facility] [address] [facility] [address] [facility] CREATINI NE(with eGFR) GLOMERULAR FILTRATION RATE/1.73 SQ [...] 21, 2023 01:47 PM Reporting Lab: [facility] [address] [place] [address] Performing Lab: [facility] [address] [place] [address] [facility] TSH-G,LC ,J,T THYROTROPI N [UNITS/VOL UME] IN [...] 10, 2022 10:59 AM Reporting Lab: [facility] [address] [place] [address] Performing Lab: [facility] [address] [place] [address] [facility] LIPID PANEL CHOLESTERO L [MASS/VOLU ME] IN [...] 10, 2022 10:59 AM Reporting Lab: [facility] [address] [facility] [address] Performing Lab: [facility] [address] [place] [phone] [facility] LIPID PANEL TRIGLYCERI DE [MASS/VOLU ME] IN [...] 10, 2022 10:59 AM Reporting Lab: [facility] [address] [place] [phone] Performing Lab: [facility] [address] [facility] [address] [facility] LIPID PANEL CHOLESTERO L IN [...] 10, 2022 10:59 AM Reporting Lab: [facility] [address] [facility] [address] Performing Lab: [facility] [address] [place] [phone] [place] [address] LIPID PANEL CHOLESTERO L IN HDL [MASS/VOLU [...] 10, 2022 10:59 AM Reporting Lab: [facility] [address] [place] [address] Performing Lab: [facility] [address] THE [address] LIPID PANEL CHOLESTERO L IN LDL [MASS/VOLU [...] 10, 2022 10:59 AM Reporting Lab: [facility] [address] [place] [address] Performing Lab: [facility] [address] [place] [phone] [place] [address] B12 COBALAMIN (VITAMIN B12) [MASS/VOLU ME] IN SERUM OR PLASMA 836 pg/mL 240 - 900 07/08 Specimen Type: SERUM No comment entered. Ordering Provider: TETE PACHECO Report Released Date/Time: Jun 23, 2023 02:55 PM Reporting Lab: [facility] [address] [facility] [address] Performing Lab: [facility] [address] [facility] [address] [facility] TOTAL, T D VITAMIN D+METABOLI [...] Jun 23, 2023 02:55 PM Reporting Lab: [place] [address] Performing Lab: [place] [address] [facility] COMPREHE NSIVE METABOLI C PANEL UREA NITROGEN [...] 10, 2022 10:59 AM Reporting Lab: [facility] [address] [facility] [address] Performing Lab: [facility] [address] THE [address] COMPREHE NSIVE METABOLI C PANEL SODIUM [MOLES/VOL [...] 10, 2022 10:59 AM Reporting Lab: [facility] [address] [place] [address] Performing Lab: [facility] [address] [place] [address] [facility] COMPREHE NSIVE METABOLI C PANEL CHLORIDE [MOLES/VOL [...] 10, 2022 10:59 AM Reporting Lab: [facility] [address] [place] [address] Performing Lab: [facility] [address] [place] [address] [facility] COMPREHE NSIVE METABOLI C PANEL CARBON DIOXIDE, [...] 10, 2022 10:59 AM Reporting Lab: [facility] [address] [place] [phone] Performing Lab: [facility] [address] [facility] [address] [facility] COMPREHE NSIVE METABOLI C PANEL PROTEIN [MASS/VOLU [...] 10, 2022 10:59 AM Reporting Lab: [facility] [address] [facility] [address] Performing Lab: [facility] [address] [place] [phone] [facility] COMPREHE NSIVE METABOLI C PANEL [...] 10, 2022 10:59 AM Reporting Lab: [facility] [address] [facility] [address] Performing Lab: [facility] [address] [facility] [address] [facility] COMPREHE NSIVE METABOLI C PANEL BILIRUBIN. TOTAL [...] 10, 2022 10:59 AM Reporting Lab: [facility] [address] [facility] [address] Performing Lab: [facility] [address] [facility] [address] [facility] COMPREHE NSIVE METABOLI C PANEL ALKALINE PHOSPHATAS [...] 10, 2022 10:59 AM Reporting Lab: [facility] [address] [facility] [address] Performing Lab: [facility] [address] [facility] [address] [facility] COMPREHE NSIVE METABOLI C PANEL ASPARTATE AMINOTRANS [...] 10, 2022 10:59 AM Reporting Lab: [facility] [address] [place] [phone] Performing Lab: [facility] [address] [facility] [address] [facility] COMPREHE NSIVE METABOLI C PANEL ALANINE AMINOTRANS [...] 10, 2022 10:59 AM Reporting Lab: [facility] [address] [place] [address] Performing Lab: [facility] [address] [facility] [address] [facility] COMPREHE NSIVE METABOLI C PANEL ANION GAP 3 IN SERUM OR PLASMA 9 mmol/L 07/08 Specimen Type: PLASMA Comment: eGFR calculated [...] 10, 2022 10:59 AM Reporting Lab: [facility] [address] [facility] [address] Performing Lab: [facility] [address] [facility] [address] [facility] COMPREHE NSIVE METABOLI C PANEL POTASSIUM [MOLES/VOL [...] 10, 2022 10:59 AM Reporting Lab: [facility] [address] [place] [address] Performing Lab: [facility] [address] [place] [address] [facility] COMPREHE NSIVE METABOLI C PANEL CALCIUM [MASS/VOLU [...] 10, 2022 10:59 AM Reporting Lab: [facility] [address] [place] [address] Performing Lab: [facility] [address] [place] [address] [facility] COMPREHE NSIVE METABOLI C PANEL CREATININE [MASS/VOLU [...] 10, 2022 10:59 AM Reporting Lab: [facility] [address] [place] [address] Performing Lab: [facility] [address] [place] [address] [facility] COMPREHE NSIVE METABOLI C PANEL GLUCOSE [MASS/VOLU [...] 10, 2022 10:59 AM Reporting Lab: [facility] [address] [place] [address] Performing Lab: [facility] [address] [place] [address] [facility] COMPREHE NSIVE METABOLI C PANEL GLOMERULAR FILTRATION [...] 10, 2022 10:59 AM Reporting Lab: [facility] [address] [place] [address] Performing Lab: [facility] [address] [place] [address] [facility] HEMOGLOB IN %A1C PROFILE HEMOGLOBIN A1C/HEMOGL OBIN.TOTAL [...] 23, 2023 02:55 PM Reporting Lab: [facility] [address] [place] [address] Performing Lab: [facility] [address] [place] [address] [facility] MICROALB UMINURIA (ANUP) CREATININE [MASS/VOLU ME] IN URINE 67.1 mg/dL 07/08 Specimen Type: URINE Comment: ANUP/CR RATIO not calculated when ANUP <12.0 or U.CREAT <15 Ordering Provider: TETE PACHECO Report Released Date/Time: Jun 23, 2023 02:55 PM Reporting Lab: [facility] [address] [place] [address] Performing Lab: [facility] [address] [place] [address] [facility] MICROALB UMINURIA (ANUP) PROTEIN [MASS/VOLU ME] IN URINE 6 mg/dL <12 - 12 07/08 Specimen Type: URINE Comment: ANUP/CR RATIO not calculated when ANUP <12.0 or U.CREAT <15 Ordering Provider: TETE PACHECO Report Released Date/Time: Jun 23, 2023 02:55 PM Reporting Lab: [facility] [address] [place] [address] Performing Lab: [facility] [address] [facility] MICROALB UMINURIA (ANUP) MICROALBUM IN/CREATIN INE [MASS RATIO] IN URINE cancmg/g {creat} 07/08 Specimen Type: URINE Comment: ANUP/CR RATIO not calculated when ANUP <12.0 or U.CREAT <15 Ordering Provider: TETE PACHECO Report Released Date/Time: Jun 23, 2023 02:55 PM Reporting Lab: [facility] [address] [place] [address] Performing Lab: [facility] [address] [place] [address] [facility] MICROALB UMINURIA (ANUP) MICROALBUM IN [MASS/VOLU ME] IN URINE <12.0mg/ L 07/08 Specimen Type: URINE Comment: ANUP/CR RATIO not calculated when ANUP <12.0 or U.CREAT <15 Ordering Provider: TETE PACHECO Report Released Date/Time: Jun 23, 2023 02:55 PM Reporting Lab: [facility] [address] [place] [id number] Performing Lab: [facility] [address] [place] [address] [facility] PSA PROSTATE SPECIFIC AG [MASS/VOLU ME] IN [...] 23, 2023 03:42 PM Reporting Lab: [facility] [address] [place] [id number] Performing Lab: [facility] [address] [place] [address] [facility] URINALYS IS COLOR OF URINE Light-Ye llow 07/08 Specimen Type: URINE No comment entered. Ordering Provider: TETE PACHECO Report Released Date/Time: Jun 23, 2023 02:55 PM Reporting Lab: [facility] [address] [place] [id number] Performing Lab: [facility] [address] [place] [address] [facility] URINALYS IS SPECIFIC GRAVITY OF URINE 1.010 1.003 - 1.030 07/08 Specimen Type: URINE No comment entered. Ordering Provider: TETE PACHECO Report Released Date/Time: Jun 23, 2023 02:55 PM Reporting Lab: [facility] [address] [place] [place] [address] Performing Lab: [facility] [address] [place] [address] [facility] URINALYS IS BILIRUBIN. TOTAL [PRESENCE] IN URINE BY TEST STRIP Negative mg/dL 07/08 Specimen Type: URINE No comment entered. Ordering Provider: TETE PACHECO Report Released Date/Time: Jun 23, 2023 02:55 PM Reporting Lab: [facility] [address] [place] [address] Performing Lab: [facility] [address] [place] [address] [facility] URINALYS IS GLUCOSE [MASS/VOLU ME] IN URINE BY TEST STRIP Negative mg/dL 07/08 Specimen Type: URINE No comment entered. Ordering Provider: TETE PACHECO Report Released Date/Time: Jun 23, 2023 02:55 PM Reporting Lab: [facility] [address] [place] [address] Performing Lab: [facility] [address] [place] [address] [facility] URINALYS IS GLUCOSE [MASS/VOLU ME] IN URINE BY TEST STRIP Negative mg/dL 07/08 Specimen Type: URINE No comment entered. Ordering Provider: TETE PACHECO Report Released Date/Time: Jun 23, 2023 02:55 PM Reporting Lab: [facility] [address] [place] [address] Performing Lab: [facility] [address] [place] [address] [facility] URINALYS IS PROTEIN [MASS/VOLU ME] IN URINE BY TEST STRIP Negative mg/dL 07/08 Specimen Type: URINE No comment entered. Ordering Provider: TETE PACHECO Report Released Date/Time: Jun 23, 2023 02:55 PM Reporting Lab: [facility] [address] [facility] [place] [address] Performing Lab: [facility] [address] [facility] [place] [address] [facility] URINALYS IS PH OF URINE BY TEST STRIP 7.0 [pH] 5.0 - 9.0 07/08 Specimen Type: URINE No comment entered. Ordering Provider: TETE PACHECO Report Released Date/Time: Jun 23, 2023 02:55 PM Reporting Lab: [facility] [address] [facility] [place] [address] Performing Lab: [facility] [address] [place] [address] [facility] URINALYS IS LEUKOCYTES [#/AREA] IN URINE SEDIMENT BY MICROSCOPY HIGH POWER FIELD 2 /[HPF] 0 - 5 07/08 Specimen Type: URINE No comment entered. Ordering Provider: TETE PACHECO Report Released Date/Time: Jun 23, 2023 02:55 PM Reporting Lab: [facility] [address] [place] [address] Performing Lab: [facility] [address] [place] [address] [facility] URINALYS IS MUCUS [PRESENCE] IN URINE SEDIMENT BY LIGHT MICROSCOPY RARE/[HP F] 07/08 Specimen Type: URINE No comment entered. Ordering Provider: TETE PACHECO Report Released Date/Time: Jun 23, 2023 02:55 PM Reporting Lab: [facility] [address] [place] [address] Performing Lab: [facility] [address] [place] [address] [facility] URINALYS IS ERYTHROCYT ES [#/AREA] IN URINE SEDIMENT BY MICROSCOPY HIGH POWER FIELD 60 /[HPF] 0 - 4 07/08 H Specimen Type: URINE No comment entered. Ordering Provider: TETE PACHECO Report Released Date/Time: Jun 23, 2023 02:55 PM Reporting Lab: [facility] [address] [place] [address] Performing Lab: [facility] [address] [place] [address] [facility] URINALYS IS HEMOGLOBIN [PRESENCE] IN URINE BY TEST STRIP 0.50 mg/dL 07/08 Specimen Type: URINE No comment entered. Ordering Provider: TETE PACHECO Report Released Date/Time: Jun 23, 2023 02:55 PM Reporting Lab: [facility] [address] [place] [address] Performing Lab: [facility] [address] [place] [address] [facility] URINALYS IS NITRITE [PRESENCE] IN URINE BY TEST STRIP Negative 07/08 Specimen Type: URINE No comment entered. Ordering Provider: TETE PACHECO Report Released Date/Time: Jun 23, 2023 02:55 PM Reporting Lab: [facility] [address] [place] [address] Performing Lab: [facility] [address] [place] [address] [facility] URINALYS IS LEUKOCYTE ESTERASE [PRESENCE] IN URINE BY TEST STRIP Negative 07/08 Specimen Type: URINE No comment entered. Ordering Provider: TETE PACHECO Report Released Date/Time: Jun 23, 2023 02:55 PM Reporting Lab: [facility] [address] [place] [address] Performing Lab: [facility] [address] [place] [address] [facility] URINALYS IS CLARITY OF URINE Clear 07/08 Specimen Type: URINE No comment entered. Ordering Provider: TETE PACHECO Report Released Date/Time: Jun 23, 2023 02:55 PM Reporting Lab: [facility] [address] [place] [address] Performing Lab: [facility] [address] [place] [address] [facility] URINALYS IS UROBILINOG EN [MASS/VOLU ME] IN URINE BY TEST STRIP Normalmg /dL 0.0 - 1.99 07/08 Specimen Type: URINE No comment entered. Ordering Provider: TETE PACHECO Report Released Date/Time: Jun 23, 2023 02:55 PM Reporting Lab: [facility] [address] [place] [address] Performing Lab: [facility] [address] [place] [address] [facility] URINALYS IS SPERMATOZO A [#/VOLUME] IN URINE BY AUTOMATED COUNT OCC/[HPF ] 07/08 Specimen Type: URINE No comment entered. Ordering Provider: TETE PACHECO Report Released Date/Time: Jun 23, 2023 02:55 PM Reporting Lab: [facility] [address] [place] [address] Performing Lab: [facility] [address] [place] [address] [facility] Vital Signs Combined list of inpatient and outpatient Vital Signs from Department of Defense and Veterans Affairs, ranging from 12 months to all on record, depending upon the facility. Vital Sign Value Date Comments Source SYSTOLIC BLOOD PRESSURE 135 03/03/2024 09:35:36 [facility] DIASTOLIC BLOOD PRESSURE 86 03/03/2024 09:35:36 [facility] PULSE OXIMETRY 98 03/03/2024 09:35:36 [facility] TEMPERATURE 97.2 03/03/2024 09:35:36 [place] [facility] PULSE 103 03/03/2024 09:35:36 [place] [facility] RESPIRATION 18 03/03/2024 09:35:36 [facility] SYSTOLIC BLOOD PRESSURE 172 09/02/2023 11:51:42 [facility] [place] DIASTOLIC BLOOD PRESSURE 95 09/02/2023 11:51:42 [place] [place] PULSE OXIMETRY 99% 09/02/2023 11:51:42 [facility] PAIN 0 09/02/2023 11:51:42 [facility] TEMPERATURE 97.7 09/02/2023 11:51:42 [place]. [place]/[facility] PULSE 81 09/02/2023 11:51:42 [facility] SYSTOLIC BLOOD PRESSURE 147 07/13/2023 09:22:00 [facility] DIASTOLIC BLOOD PRESSURE 73 07/13/2023 09:22:00 [facility] Encounters Combined list of: 1) Encounters from Department of [facility] facilities going back up to thelast 18 months. 2) Encounters from the Department of [facility] facilities going back up to 280 months. Location Location Details Encounter Type Encounter Number Reason For Visit Attending Provider ADM Date DC Date Status Disposition Source [facility] Outpatient Encounter [id number] 11/27 [facility] En[facility] [id number] 11/27 [facility] Out[facility] Encounter [id number] 12/01 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
KAPTRINITY,BR CAROLINA S 01/21 [facility] OFFICE O/P NEW MOD 45-59 MIN [id number] Diagnos is: ICD-10- CM H57.813 Brow ptosis, bilater al
DAVID,CENK 01/21 [facility] ELECTROCAR DIOGRAM TRACING [id number] Diagnos is: ICD-10- CM Z01.810 Encount er for preproc edural cardiov ascular examina tion
TOSHA ZAVALA 02/05 [facility] OFFICE O/P EST MOD 30-39 MIN [id number] Diagnos is: ICD-10- CM Z01.818 Encount er for other preproc edural examina tion
CAROL RIOS 02/05 [facility] Outpatient Encounter [id number] Diagnos is: ICD-10- CM Z01.818 Encount er for other preproc edural examina tion
REVA GARDINER 02/18 [facility] Outpatient Encounter [id number] TISHA MLILER 02/18 [facility] Outpatient Encounter [id number] SYSTEM,CIS -ARK 02/26 [facility] OFFICE O/P NEW LOW 30-44 MIN [id number] Diagnos is: ICD-10- CM Z01.818 Encount er for other preproc edural examina tion
SHU SYLVESTER 02/26 [facility] Outpatient Encounter [id number] Atif ROSENBERG 02/26 [facility] Outpatient Encounter [id number] SYSTEM,CIS -ARK 02/26 [facility] Outpatient Encounter [id number] 02/26 [facility] Outpatient Encounter [id number] SHU SYLVESTER E E 02/26 [facility] REVISION OF EYELID [id number] Diagnos is: ICD-10- CM 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
CAYCI,CENK 02/[address] [facility] REVISION OF UPPER EYELID [id number] TIFFANIE HOUSTON 02/[address] 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
SHU SYLVESTER E E 02/[address] [facility] Outpatient Encounter [id number] 02/[address] [facility] POSTOP FOLLOW-UP VISIT [id number] Diagnos is: ICD-10- CM Z48.817 Encntr for surgica l aftcr fol surgery on the skin, subcu<b r/> ME FELIX DOUGLAS 03/[address] [facility] POSTOP FOLLOW-UP VISIT [id number] Diagnos is: ICD-10- CM Z48.817 Encntr for surgica l aftcr fol surgery on the skin, subcu<b r/> ME FELIX DOUGLAS 04/08 [facility] Outpatient Encounter [id number] 05/26 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
TEENA KUMAR JOSE 07/13 [facility] Outpatient Encounter [id number] VIVEK VIDALES 07/21 [facility] HC PRO PHONE CALL 5-10 MIN [id number] Diagnos is: ICD-10- CM G47.33 Obstruc tive sleep apnea (adult) ([facility])
CHANI CAMPOVERDE 08/28 [facility] Outpatient Encounter [id number] ANDRADE TEENA DUBON JOSE 08/31 [facility] Outpatient Encounter [id number] TEENA KUMAR JOSE 08/31 [facility] Outpatient Encounter [id number] TEENA KUMAR JOSE 08/31 [facility] En[facility] [id number] 09/01 [facility] OFFICE O/P NEW MOD 45 MIN [id number] Diagnos is: ICD-10- CM R31.0 Gross hematur ia
BIA RICHARDSON 09/02 [facility] Outpatient Encounter [id number] 09/02 . [facility] Outpatient Encounter [id number] 09/02 [facility] N[facility] Outpatient Encounter [id number] ASTRID HACKETT 09/02 N[facility] Outpatient Encounter [id number] ASTRID HACKETT 09/02 [facility] N[facility] Outpatient Encounter [id number] ASTRID HACKETT 09/03 [facility] N[facility] Outpatient Encounter [id number] TEENA KUMAR 09/03 [facility] Outpatient Encounter [id number] 09/08 [facility] N[facility] Outpatient Encounter [id number] ASTRID HACKETT 09/08 [facility] N[facility] Outpatient Encounter [id number] ASTRID HACKETT 09/08 [facility] N[facility] Outpatient Encounter [id number] Diagnos is: ICD-10- CM G47.33 Obstruc tive sleep apnea (adult) (pediat melanie)
MARIELLA ANDRADE 09/08 N[facility] HC PRO PHONE CALL 5-10 MIN [id number] Diagnos is: ICD-10- CM N40.1 Benign prostat ic hyperpl óscar with lower urinary tract symp
JENNYFER,WAYNE SHULTZ A 09/11 [facility] POS AIRWAY PRESSURE CPAP [id number] Diagnos is: ICD-10- CM G47.33 Obstruc tive sleep apnea (adult) (pediat melanie)
JULIAN-QUILE SCHANI 10/13 [facility] Outpatient Encounter [id number] FIDE JOHNSON ANGELA Swan 10/14 [facility] SPECIAL SUPPLIES PHYS/QHP [id number] Diagnos is: ICD-10- CM G47.33 Obstruc tive sleep apnea (adult) (pediat melanie)
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
KAPHING,BR CAROLINA S 01/12 [facility] OFFICE O/P EST MOD 30 MIN [id number] Diagnos is: ICD-10- CM H02.834 Dermato chalasi s of left upper eyelid< br/> CAYCI,CENK 01/12 [facility] Outpatient Encounter [id number] [facility] Outpatient Encounter [id number] 01/21 [facility] Outpatient Encounter [id number] Diagnos is: ICD-10- CM N40.1 Benign prostat ic hyperpl óscar with lower urinary tract symp
[place]AT [place] 02/17 [facility] [place] [facility] [place] [facility] OFFICE O/P EST MOD 30 MIN [id number] Diagnos is: ICD-10- CM H02.34 Blephar ochalas is left upper eyelid< br/> BERTA HERNANDEZ 03/03 [facility] [place] [facility] Outpatient Encounter [id number] 03/03 [facility] N[facility] [place] Outpatient Encounter [id number] 03/11 [facility] [place] [facility] [place] [facility] POSTOP FOLLOW-UP VISIT [id number] Diagnos is: ICD-10- CM Z48.89 Encount er for other specifi ed surgica l afterca re
WONG MARIE 03/16 [facility] Procedures Combined list of: 1) Procedures from Department of Veterans Affairs facilities going back up to thelast 18 months, not all [place] non-surgical procedures are included; 2) All procedures from the Department of Defense facilities. Procedure Procedure Type Code Date Perfomer Comments Ramsey beckett Bilateral upper blepharoplasty, transpalpebral browpexy with endotine, Levator advancement, tarsal strip/canthoplasty REVISION OF UPPER EYELID [id number] [facility] Social History Combined list of available smoking, tobacco, and other social history from Department of Defense and Veterans Affairs facilities. Social History Type Response Date Comment Ramsey beckett Tobacco smoking status WVIS VA-TOBACCO FORMER USER 07/13/2023 [facility] History of tobacco use [place]-TOBACCO QUIT 5 TO < 15 YRS 07/13/2023 [facility] History of tobacco use VA-TOBACCO FORMER USER 07/10/2022 [facility] History of tobacco use [place]-TOBACCO FORMER USER 07/11/2021 [facility] History of tobacco use WA-TOBACCO QUIT 15 YRS OR MORE 07/05/2020 [facility] History of tobacco use PRIOR TOBACCO USE CESSATION DATE 09/01/2017 [facility] [place] History of tobacco use TOBACCO PACK YEARS 08/31/2017 [facility] History of tobacco use PRIOR TOBACCO USE CESSATION DATE 10/24/2016 [facility] [facility] History of tobacco use TOBACCO PACK YEARS 10/23/2016 [facility] History of tobacco use PRIOR TOBACCO USE CESSATION DATE 07/09/2016 [facility] History of tobacco use TOBACCO PACK YEARS 07/09/2016 [facility] History of tobacco use PRIOR TOBACCO USE CESSATION DATE 07/09/2015 [facility] [facility] History of tobacco use TOBACCO PACK YEARS 07/09/2015 [facility] History of tobacco use CURRENT TOBACCO USE 07/12/2014 [facility] History of tobacco use TOBACCO MEDS OFFERED 07/07/2013 [facility] Plan of Care List of future care activities from [facility] facilities. Additional future care activities may be listed in the Assessment and Plan section. Date/Time Care Activity Care Activity Detail Facili ty 07/05/2024 AMBULATORY - NONE AMBULATORY - NONE [facility] 07/12/2024 AMBULATORY - MEDICINE AMBULATORY - MEDICI NE [facility] 08/29/2024 AMBULATORY - NONE AMBULATORY - NONE [facility] 10/17/2024 AMBULATORY - MEDICINE AMBULATORY - MEDICI NE Rinku [facility]/[place] [facility] 07/05/2024 Laboratory - Composition Stone Applicator ry Order CBC (DIFF&PLT) BLOOD SP [facility] 07/05/2024 Laboratory - Composition Stone Applicator ry Order LIPID PANEL BLOOD PLASMA SP [facility] 07/05/2024 Laboratory - Composition Stone Applicator ry Order COMPREHENSIVE METABOLIC PANEL BLOOD PLASMA SP [facility] 07/05/2024 Laboratory - Composition Stone Applicator ry Order TSH-G,LC,J,T BLOOD PLASMA SP [facility] 07/05/2024 Laboratory - Composition Stone Applicator ry Order HEMOGLOBIN %A1C PROFILE BLOOD SP [facility] 07/05/2024 Laboratory - Composition Stone Applicator ry Order MICROALBUMINURIA(ANUP) URINE SP [facility] Advance Directives List of completed, amended, or rescinded Advance Directives on record at [facility] facilities. An actual copy of the Directive is not included. Date Advance Directive Provider Source 07/13/2023 ADVANCE DIRECTIVE NO TIFICATION AND SCREENING ROSA M SUAZO [facility] 07/10/2022 ADVANCE DIRECTIVE NO TIFICATION AND SCREENING ASTRID BHAT [facility] 07/05/2020 ADVANCE DIRECTIVE NO TIFICATION AND SCREENING DIPTI GILES [facility] 07/01/2019 ADVANCE DIRECTIVE DISCUSSION BETTY BROTHERS [facility] 06/30/2018 ADVANCE DIRECTIVE DISCUSSION BETTY BROTHERS [facility] 09/01/2017 ADVANCE DIRECTIVE DISCUSSION BETTY BROTHERS [facility] 10/24/2016 ADVANCE DIRECTIVE DISCUSSION BETTY BROTHERS [facility] 07/09/2016 ADVANCE DIRECTIVE DISCUSSION BETTY BROTHERS [facility] 07/22/2013 ADVANCE DIRECTIVE SUZANNA HOOK [facility]
--- OUTSIDE RECORDS SUMMARY | 2024-05-29 14:14 | XMS_ITS | Referral Summary ---
Author Organization [facility] Address [address] [place] [address] Care Team Providers Care Master Police Detective Name Role Phone Dustin Victor MD Primary Care Provider [phone] Encounters Date Type Department Care Team Description 05/25/2024 9:34 PM CDT - 05/28/2024 11:26 AM CDT Hospital Encounter [place] [address] [facility] [address] [place] [address] Seth Rios MD Hess, Toy, MD Calculus of bile duct with acute cholecystitis and obstruction (Primary Dx); Cholangitis (H); Duodenal ulcer without hemorrhage or perforation and without obstruction Discharge Disposition: Home or Self Care 05/27/2024 10:21 AM CDT Anesthesia Event [facility] [address] [place] [address] Leny Lyon MD Cole, Lisa Yolanda, FAST FOODS WORKER REGULATORY COMPLIANCE MANAGER 05/27/2024 10:20 AM CDT - 05/27/2024 12:15 PM CDT Surgery [facility] [address] [place] [address] Kenneth Mayen MD [facility] Robot-Assisted Laparoscopic Cholecystectomy 05/26/2024 2:10 PM CDT Anesthesia Event [facility] [address] [place] [address] Car Underwood MD Larson, Matthew Ray, MD 05/26/2024 1:50 PM CDT - 05/26/2024 2:45 PM CDT [facility] [address] [place] [phone] Jefferson Gama MD ENDOSCOPIC RETROGRADE CHOLANGIOPANCREATOGRAP HY, sphincterotomy and balloon extraction from Last 3 Months Allergies Active Allergy Reactions Criticality Noted Date Comments Lisinopril 04/01/2023 Medications Medication Sig Dispensed Refills Start Date End Date Status amLODIPine (NORVASC) 5 MG tablet Take 5 mg by mouth daily. 02/05/2023 Active ASPIRIN LOW DOSE 81 MG EC tablet Take 81 mg by mouth daily. 03/07/2024 Active diclofenac (VOLTAREN) 1 % topical gel Apply 4 g topically 4 times daily as needed for moderate pain. 09/03/2023 Active finasteride (PROSCAR) 5 MG tablet Take 5 mg by mouth daily. 02/18/2024 Active metoprolol tartrate (LOPRESSOR) 25 MG tablet Take 25 mg by mouth 2 times daily. 07/13/2023 Active polyvinyl alcohol (LIQUIFILM TEARS) 1.4 % ophthalmic solution Apply 2 drops to eye every 2 hours as needed for dry eyes. 03/02/2024 Active tamsulosin (FLOMAX) 0.4 MG capsule Take 0.4 mg by mouth daily. 02/18/2024 Active Piseco-3 Fatty Acids (FISH OIL) 1200 MG capsule Take 1,200 mg by mouth daily. 02/05/2023 Active multivitamin w/minerals (THERA-VIT-M) tablet Take 1 tablet by mouth daily. 01/11/2024 Active amoxicillin-clavu lanate (AUGMENTIN) 875-125 MG tabletIndications :Intra-Abdominal Infection Take 1 tablet by mouth every 12 hours for 7 days. 14 tablet 05/28/2024 06/04/2024 Active pantoprazole (PROTONIX) 40 MG EC tabletIndications :Duodenal ulcer without hemorrhage or perforation and without obstruction Take 1 tablet (40 mg) by mouth every morning (before breakfast). 30 tablet 05/29/2024 06/28/2024 Active atorvastatin (LIPITOR) 40 MG tablet Take 40 mg by mouth daily. 02/05/2023 05/28/2024 Discontinued (Stop at Discharge) famotidine (PEPCID) 20 MG tablet Take 20 mg by mouth 2 times daily. 05/28/2024 Discontinued (Stop at Discharge) triamterene-HCTZ (MAXZIDE-25) 37.5-25 MG tablet Take 1 tablet by mouth every morning. 05/17/2024 05/28/2024 Discontinued (Stop at Discharge) Active Problems Problem Noted Date Diagnosed Date Choledocholithiasis with obstruction 05/25/2024 Social History Tobacco Use Types Packs/Day Years Used Date Smoking Tobacco: Former Cigarettes 1965 Tobacco Cessation:Counseling Given: Not Answered Adolescent Education Answer Date Record ed Getting School Help Needed Not on file 05/16 Food Insecurity Answer Date Recorded Within the past 12 months, d id you worry that your food would run out before you got money to buy more? No 05/25/2024 Within the past 12 months, d id the food you bought just not last and you didn? t have money to get more? No 05/25/2024 Housing Stability Answer Date Recorded Do you have housing? (Housin g is defined as stable permanent housing and does not include staying ouside in a car, in a tent, in an abandoned building, in an overnight group home, or couch-surfing.) Yes 05/25/2024 Are you worried about losing your housing? No 05/25/2024 Financial Resource Strain Answer Date R ecorded Within the past 12 months, h ave you or your family members you live with been unable to get utilities (heat, electricity) when it was really needed? No 05/25/2024 Transportation Needs Answer Date Record ed Within the past 12 months, h as lack of transportation kept you from medical appointments, getting your medicines, non-medical meetings or appointments, work, or from getting things that you need? No 05/25/2024 Interpersonal Safety Answer Date Record ed Do you feel physically and e motionally safe where you currently live? Yes 05/27/2024 Within the past 12 months, h ave you been hit, slapped, kicked or otherwise physically hurt by someone? No 05/27/2024 Within the past 12 months, h ave you been humiliated or emotionally abused in other ways by your partner or ex-partner? No 05/27/2024 Sex and Gender Information Value Date Recorded Sex Assigned at Not on file Gender Identity Not on file Sexual Orientation Not on file Last Filed Vital Signs Vital Sign Reading Time Taken Comments Blood Pressure 151/80 05/28/2024 7:26 AM CDT Pulse 93 05/28/2024 7:26 AM CDT Temperature 36.6 ??C (97.9 ??F) 05/28/2024 7:26 AM CD T Respiratory Rate 16 05/28/2024 7:26 AM CDT Oxygen Saturation 95% 05/28/2024 7:26 AM CDT Inhaled Oxygen Concentration - - Weight 106.5 kg (234 lb 12.8 oz) 05/25/2024 9:35 PM CDT Height 177.8 cm (5' 10) 05/25/2024 9:35 PM CDT Body Mass Index 33.69 05/25/2024 9:35 PM CDT Plan of Treatment Scheduled Procedures Name Priority Associated Diagnoses Date/Ti me CHOLECYSTECTOMY, LAPAROSCOPIC Calculus of bile duct with acute cholecystitis and obstruction Procedures Procedure Name Priority Date/Time Associated Diagnosis Comments EKG 12-LEAD, TRACING ONLY STAT 2023 9:11 AM CDT MAGNESIUM Add-On 05/28/2024 6:51 AM CDT COMPREHENSIVE METABOLIC PANEL Routine 6:51 AM CDT CBC WITH PLATELETS Routine 05/28/2024 6:51 AM CDT SODIUM Timed 05/28/2024 6:51 AM CDT SODIUM Timed 05/27/2024 11:40 PM CDT SODIUM Timed 05/27/2024 5:50 PM CDT SODIUM Timed 05/27/2024 1:50 PM CDT ANE AIRWAY ETT PERFORMABLE Routine 05/27 10:30 AM CDT MAGNESIUM Add-On 05/27/2024 6:25 AM CDT COMPREHENSIVE METABOLIC PANEL Routine 6:25 AM CDT LIPASE Routine 05/27/2024 6:25 AM CDT CBC WITH PLATELETS Routine 05/27/2024 6:25 AM CDT SODIUM Timed 05/27/2024 6:25 AM CDT SODIUM Timed 05/27/2024 1:00 AM CDT SODIUM Timed 05/26/2024 5:43 PM CDT OSMOLALITY, RANDOM URINE STAT 024 5:17 PM CDT SODIUM RANDOM URINE STAT 05/26/2024 5:17 PM CDT XR ERCP Routine 05/26/2024 2:56 PM CDT ERCP W SPHINCTEROTOMY 05/26/2024 2:14 PM CDT Calculus of bile duct with acute cholecystitis and obstruction ENDOSCOPIC RETROGRADE CHOLANGIOPANCREATOGRAPHY Routine 05/26/2024 1:39 PM CDT GLUCOSE BY METER Routine 05/26/2024 12:26 PM CDT POTASSIUM Timed 05/26/2024 12:04 PM CDT SODIUM Timed 05/26/2024 12:04 PM CDT INR Routine 05/26/2024 9:47 AM CDT TSH WITH FREE T4 REFLEX Add-On 05/26/20 6:49 AM CDT MAGNESIUM Add-On 05/26/2024 6:49 AM CDT CBC WITH PLATELETS Routine 05/26/2024 6:49 AM CDT COMPREHENSIVE METABOLIC PANEL Routine 6:49 AM CDT SODIUM Timed 05/26/2024 12:23 AM CDT from Last 3 Months Results * Magnesium (05/28/2024 6:51 AM CDT) Only the most recent of3 resultswithin the time period is included. Magnesium 2.3 1.7 - 2.3 mg/dL 05/28/2024 7:52 AM CDT LABORATORY Blood BLOOD SPECIMEN / Unknown Venipuncture / Unknown 05/28/2024 6:51 AM CDT 05/28/2024 7:02 AM CDT Seth Rios MD LAB - BLOOD ORDER [facility] LABORAT[facility] Lab [address] [facility] Lab (1st floor, no room number) [place] [address] * (ABNORMAL) Comprehensive metabolic panel (05/28/2024 6:51 AM CDT) Only the most recent of3 resultswithin the time period is included. Sodium 131(L) 135 - 145 mmol/L 05/28/2024 7:27 AM CDT LABORATORY Potassium 3.7 3.4 - 5.3 mmol/L 05/28/2024 7:27 AM CDT LABORATORY Carbon Dioxide (CO2) 19(L) 22 - 29 mmol/L 05/28/2024 7:27 AM CDT LABORATORY Anion Gap 15 7 - 15 mmol/L 05/28/2024 7:27 AM CDT LABORATORY Urea Nitrogen 16.6 8.0 - 23.0 mg/dL 05/28/2024 7:27 AM CDT LABORATORY Creatinine 1.06 0.67 - 1.17 mg/dL 05/28/2024 7:27 AM CDT LABORATORY GFR Estimate 74 >60 mL/min/1.7 3m2 05/28/2024 7:27 AM CDT LABORATORY Comment:eGFR calculated us2020 CKD-EPI equation. Calcium 8.3(L) 8.8 - 10.4 mg/dL 05/28/2024 7:27 AM CDT [facility]AT[facility] Comment:Reference intervals for this test were updated on 03/08/2024 to reflect our healthy population more accurately. There may be differences in the flagging of prior results with similar values performed with this method. Those prior results can be interpreted in the context of the updated reference intervals. Chloride 97(L) 98 - 107 mmol/L 05/28/2024 7:27 AM CDT [facility] Glucose 126(H) 70 - 99 mg/dL 05/28/2024 7:27 AM CDT [facility] Alkaline Phosphatase 288(H) 40 - 150 U/L 05/28/2024 7:27 AM CDT [facility] AST 200(H) 0 - 45 U/L 05/28/2024 7:27 AM CDT [facility] ALT 229(H) 0 - 70 U/L 05/28/2024 7:27 AM CDT [facility] Protein Total 6.1(L) 6.4 - 8.3 g/dL 05/28/2024 7:27 AM CDT [facility] Albumin 3.3(L) 3.5 - 5.2 g/dL 05/28/2024 7:27 AM CDT [facility] Bilirubin Total 0.7 <=1.2 mg/dL 05/28/2024 7:27 AM CDT [facility] Blood BLOOD SPECIMEN / Unknown Venipuncture / Unknown 05/28/2024 6:51 AM CDT 05/28/2024 7:02 AM CDT Dorita Thompson MD LAB - BLOOD ORDERABL ES LABORATORY [facility] Acute Care Lab [address] [facility] Lab (1st floor, no room number) [place] [address], [facility] * (ABNORMAL) Sodium (05/28/2024 6:51 AM CDT) Only the most recent of9 resultswithin the time period is included. Sodium 131(L) 135 - 145 mmol/L 05/28/2024 7:27 AM CDT [facility] LABORATORY Blood BLOOD SPECIMEN / Unknown Venipuncture / Unknown 05/28/2024 6:51 AM CDT 05/28/2024 7:02 AM CDT Kenneth Mayen MD LAB - BLOOD ORDERABL ES LABORATORY [facility] Acute Care Lab [address] Lab (1st floor, no room number) [place] [address], [facility] * (ABNORMAL) CBC with platelets (05/28/2024 6:51 AM CDT) Only the most recent of3 resultswithin the time period is included. WBC Count 12.1(H) 4.0 - 11.0 10e3/uL 05/28/2024 7:05 AM CDT [facility] LAB[facility] RBC Count 4.02(L) 4.40 - 5.90 10e6/uL 05/28/2024 7:05 AM CDT [facility] Hemoglobin 12.1(L) 13.3 - 17.7 g/dL 05/28/2024 7:05 AM CDT [facility] Hematocrit 35.8(L) 40.0 - 53.0 % 05/28/2024 7:05 AM CDT [facility] LAB[facility] MCV 89 78 - 100 fL 05/28/2024 7:05 AM CDT [facility] LAB[facility] MCH 30.1 26.5 - 33.0 pg 05/28/2024 7:05 AM CDT [facility] MCHC 33.8 31.5 - 36.5 g/dL 05/28/2024 7:05 AM CDT [facility] RDW 13.8 10.0 - 15.0 % 05/28/2024 7:05 AM CDT [facility] Platelet Count 164 150 - 450 10e3/uL 05/28/2024 7:05 AM CDT [facility] Blood BLOOD SPECIMEN / Unknown Venipuncture / Unknown 05/28/2024 6:51 AM CDT 05/28/2024 7:01 AM CDT Dorita Thompson MD LAB - BLOOD ORDERABL ES LABORATORY [facility] Acute Care Lab [address] Lab (1st floor, no room number) [place] [address] * ANE AIRWAY ETT PERFORMABLE (05/27/2024 10:30 AM CDT) Narrative Concepcion Rosado APRN REGULATORY COMPLIANCE MANAGER - 05/27/2024 10:30 AM CDT Concepcion Rosado APRN CRNA ? 05/27/2024 10:38 AM Airway ? Patient location during procedure: OR ? Procedure Start/Stop Times: 05/27/2024 10:30 AM Staff - ? REGULATORY COMPLIANCE MANAGER: Concepcion Rosado APRN CRNA ? Performed By: REGULATORY COMPLIANCE MANAGER Consent for Airway ? Urgency: elective Indications and Patient Condition ? Indications for airway management: stephanie-procedural ? Induction type:intravenous ? Mask difficulty assessment: 1 - vent by mask Final Airway Details ? Final airway type: endotracheal airway ? Successful airway: ETT - single Endotracheal Airway Details ? ETT size (mm): 8.0 ? Cuffed: yes ? Successful intubation technique: direct laryngoscopy ? DL Blade Type: MAC 4 ? Grade View of Cords: 1 ? Adjucts: stylet ? Position: Right ? Bite block used: Soft Post intubation assessment ? Placement verified by: capnometry ? Number of attempts at approach: 1 ? Secured with: tape ? Ease of procedure: easy ? Dentition: Intact and Unchanged Medication(s) Administered Medication Administration Time: 05/27/2024 10:30 AM Leny Lyon MD OR ANESTHESIA * (ABNORMAL) Lipase (05/27/2024 6:25 AM CDT) Lipase 63(H) 13 - 60 U/L 05/27/2024 7:06 AM CDT [facility] LAB[facility] Blood STRUCTURE OF RIGHT UPPER LIMB / Unknown Venipuncture / Unknown 05/27/2024 6:25 AM CDT 05/27/2024 6:38 AM CDT Dorita Thompson MD LAB - BLOOD ORDERABL ES Performing Organization Address [facility]/ZIP Co de Phone Number [facility] Lab [address] Lab (1st floor, no room number) [address] * Sodium random urine (05/26/2024 5:17 PM CDT) Sodium Urine mmol/L 52 mmol/L 05/26/2024 5:54 PM CDT LABORATORY Comment:The reference ranges have not been established in urine sodium. The results should be integrated into the clinical context for interpretation. Urine URINE SPECIMEN OBTAINED BY CLEAN CATCH PROCEDURE / Unknown Non-blood Collection / Unknown 05/26/2024 5:17 PM CDT 05/26/2024 5:25 PM CDT Dorita Thompson MD LAB - URINE ORDERABL ES Performing Organization Address [facility] Co de Phone Number [facility] Lab [address] Lab (1st floor, no room number) [address] * Osmolality urine (05/26/2024 5:17 PM CDT) Osmolality Urine 574 100 - 1,200 mmol/kg 05/27/2024 12:32 PM CDT [facility] Urine URINE SPECIMEN OBTAINED BY CLEAN CATCH PROCEDURE / Unknown Non-blood Collection / Unknown 05/26/2024 5:17 PM CDT 05/26/2024 5:25 PM CDT Narrative [facility] - 05/27/2024 12:32 PM CDT Reference Ranges depend on patient's hydration status and renal function. Neonates: 75-300 mmol/kg 2 years and older, random specimens: 100-1200 mmol/kg; Greater than 850 mmol/kg after 12 hour fluid restriction Urine/serum osmolality ratio: 2 years and older: 1.0-3.0; 3.0-4.7 after 12 hour fluid restriction Dorita Thompson MD LAB - URINE ORDERABL ES Performing Organization Address City/[facility]/ZIP Co de Phone Number [facility] [place] [facility] [address] [facility], [address] [place] [address] * XR ERCP (05/26/2024 2:56 PM CDT) Narrative [facility] - 05/26/2024 2:58 PM CDT This exam was marked as non-reportable because it will not be read by a radiologist or a [facility] non-radiologist provider. Jefferson Gama MD IMG DIAGNOSTIC I MAGING ORDERABLES [facility] * ENDOSCOPIC RETROGRADE CHOLANGIOPANCREATOGRAPHY (05/26/2024 1:39 PM CDT) [facility] Patient Name: Car MeredithShannan Calvert ? Procedure Date: 05/26/2024 1:39 PM ? Date of : 1950 ?Admit Type: Inpatient Age: 74 ? Gender: Male Attending MD: JEFFERSON GAMA MD, ??Total Sedation Time: Instrument Name: 264 - ERCP ? Procedure: ?ERCP Indications: ?Bile duct stone(s) Providers: ?JEFFERSON GAMA MD (Doctor) Referring MD: ? Other Clinic (Referring MD) Medicines: ?Monitored Anesthesia Care Complications: ?No immediate complications. Procedure: ?Pre-Anesthesia Assessment: ?- Pre-procedure physical examination revealed no ?contraindications to sedation. ?After obtaining informed consent, the scope was ?passed under direct vision. Throughout the ?procedure, the patient's blood pressure, pulse, and ?oxygen saturations were monitored continuously. The ?Olympus Exera II Duodenovideoscope (ERCP), Model # ?[id number]-[id number], [facility] # [id number] was introduced ?through the mouth, and used to inject contrast into ?and used to inject contrast into the bile duct. The ?ERCP was accomplished without difficulty. The ?patient tolerated the procedure well. ? Findings: ? The refinery operator crude unit film was normal. The esophagus was successfully intubated ? under direct vision. The scope was advanced to a normal major papilla in ? the descending duodenum without detailed examination of the pharynx, ? larynx and associated structures, and upper GI tract. There is extensive ? superficial ulceration throughout the duodenum. After several attempts, ? the bile duct was cannulated with a sphincterotome and a wire. ? Cholangiogram revealed multiple filling defects within the distal duct. ? The duct was approximately 12 mm. The intrahepatic portion of the duct ? was normal. The cystic duct had a mid takeoff and filled the ? gallbladder. A complete biliary sphincterotomy was performed. A 9 to 12 ? mm retrieval balloon was used to sweep the duct. Large amount of stone ? burden was removed from the distal duct. After this removal the duct was ? clear. Occlusion cholangiogram was without any further filling defects. ? Impression: ? - Choledocholithiasis with an obstruction was ?found. Complete removal was accomplished by biliary ?sphincterotomy and balloon extraction. ?- Non-bleeding duodenal ulcers. Recommendation: ? - [facility]. ?- Anat per surgical service. ?- PPI therapy. ?- Clear liquids tonight. ? Jefferson Gama MD __ JEFFERSON GAMA MD 05/27/2024 1:48:51 PM I was physically present for the entire viewing portion of the exam. ____JEFFERSON GAMA MD Number of Addenda: 0 Note Initiated On: 05/26/2024 1:39 PM MRN: ?[id number] Procedure Date: ? 05/26/2024 1:39:55 PM Total Procedure Duration: 0 hours 25 minutes 28 seconds Estimated Blood Loss: ? Scope In: 2:21:09 PM Scope Out: 2:46:37 PM RADIOLOGY RESULTS 05/26/2024 1:39 PM CDT Provider Not In System PROCEDURES Performing Organization Address City/[facility]/ZIP Co de Phone Number RADIOLOGY RESULTS * (ABNORMAL) Glucose by meter (05/26/2024 12:26 PM CDT) GLUCOSE BY METER POCT 124(H) 70 - 99 mg/dL 05/26/2024 12:33 PM CDT LABORATORY POC Blood, Capillary BLOOD SPECIMEN / Unknown 05/26/2024 12:26 PM CDT 05/26/2024 12:33 PM CDT Seth Rios MD LAB - BEAKER POCT Performing Organization Address [facility]/ZIP Co de Phone Number LABORATORY [facility] Acute Care Lab [address] Lab (1st floor, no room number) [address] * (ABNORMAL) Potassium (05/26/2024 12:04 PM CDT) Potassium 3.3(L) 3.4 - 5.3 mmol/L 05/26/2024 12:42 PM CDT LABORATORY Blood STRUCTURE OF RIGHT HAND / Unknown Venipuncture / Unknown 05/26/2024 12:04 PM CDT 05/26/2024 12:19 PM CDT Dorita Thompson MD LAB - BLOOD ORDERABL ES Performing Organization Address [facility]/ZIP Co de Phone Number [facility] Acute Care Lab [address] Lab (1st floor, no room number) [address] * INR (05/26/2024 9:47 AM CDT) INR 1.10 0.85 - 1.15 05/26/2024 10:12 AM CDT [facility] LAB[facility]ATORY Blood STRUCTURE OF RIGHT HAND / Unknown Venipuncture / Unknown 05/26/2024 9:47 AM CDT 05/26/2024 9:56 AM CDT Asuncion Flynn PA-C LAB - BLOOD ORDERABLES [facility] Acute Care Lab [address] Lab (1st floor, no room number) [place] [address] * TSH with free T4 reflex (05/26/2024 6:49 AM CDT) TSH 1.27 0.30 - 4.20 uIU/mL 05/26/2024 12:29 PM CDT [facility] Blood STRUCTURE OF RIGHT HAND / Unknown Venipuncture / Unknown 05/26/2024 6:49 AM CDT 05/26/2024 6:59 AM CDT Dorita Thompson MD LAB - BLOOD ORDERABL ES Performing Organization Address City/[facility]/ZIP Co de Phone Number [facility] Lab [address] Lab (1st floor, no room number) [place] [phone] from Last 3 Months Advance Directives For more information, please contact: [phone] * Full Code (Latest Code Status on File) Date Activated Date Inactivated Comments 05/25/2024 11:07 PM 05/28/2024 1:31 PM All basic a nd advanced life-sustaining interventions are performed as appropriate Question Answer Comments Code status determined by: Discussion with monica nt/ legal decision maker Care Teams Master Police Detective Relationship Specialty Start Date End Date Dustin Victor MD [facility] [address] [place] [address] PCP - General Family Medicine 04/01/23
--- OUTSIDE RECORDS SUMMARY | 2024-05-29 14:14 | XMS_ITS | Clinical Summary ---
Author Organization [place] Address [facility] [place] [address] Care Team Providers Care Shipwright Apprentice Name Role Phone Dustin Victor MD Primary Care Provider [phone] Allergies Active Allergy Reactions Criticality Noted Date [...] 0.4 mg by mouth daily. 02/18/2024 Active [place]-3 Fatty Acids (FISH OIL) 1200 MG capsule [...] Date Diagnosed Date Choledocholithiasis with obstruction 05/25/2024 Encounters Date Type Department Care Team Description 05/27/2024 10:21 AM CDT Anesthesia Event [facility] [address] [place] [address] Leny Lyon MD Cole, Lisa Yolanda, APRN CRNA 05/27/2024 10:20 AM CDT - 05/27/2024 12:15 PM CDT Surgery [facility] [address] [place] [address] Kenneth Mayen MD Davinci Robot-Assisted Laparoscopic Cholecystectomy 05/26/2024 2:10 PM CD[address] [facility] [address] [place] [address] Car Underwood MD Larson, Matthew Ray, MD 05/26/2024 1:50 PM CDT - 05/26/2024 2:[address] [facility] [address] [place] [address] Jefferson Gama MD ENDOSCOPIC RETROGRADE CHOLANGIOPANCREATOGRAP HY, sphincterotomy and balloon extraction 05/25/2024 9:34 PM CDT - 05/28/2024 11:26 AM CDT Hospital Encounter [place] [address] [facility] [address] [place] [phone] Seth Rios MD Hess, Toy, MD Calculus of bile duct with acute cholecystitis and obstruction (Primary Dx); Cholangitis (H); Duodenal ulcer without hemorrhage or perforation and without obstruction Discharge Disposition: Home or Self Care from Last 3 Months Social History Tobacco Use Types Packs/Day Years [...] in an abandoned building, in an overnight intermediate, or couch-surfing.) Yes 05/25/2024 Are you worried [...] bile duct with acute cholecystitis and obstruction Health Maintenance Due Date Last Done Comments ADVANCE CARE PLANNING 1950 ANNUAL REVIEW OF HM ORDERS 1950 CT COLONOGRAPHY 1950 FIT 1950 FLEX SIG 1950 sDNA (Cologuard) 1950 COLONOSCOPY 1960 COLORECTAL CANCER SCREENING 1960 HEPATITIS C SCREENING 1968 LIPID 1990 RSV VACCINE (1 - Risk 60-74 years 1-dose series) 2010 AORTIC ANEURYSM SCREENING (SYSTEM ASSIGNED) 2015 FALL RISK ASSESSMENT 2015 MEDICARE ANNUAL WELLNESS VISIT 2015 Pneumococcal Vaccine: 65+ Years (3 of 3 - PPSV23 or PCV20) 07/09/2020 07/09/2015, 07/14/2013, 07/14/2013 PHQ-2 (once per calendar year) 2023 COVID-19 Vaccine ( season) 2024 06/01/2023, 05/29/2022, 12/01/2021, Additional history exists INFLUENZA VACCINE (#1) 2024 , 05/26/2023, 05/29/2022, Additional history exists GLUCOSE 05/28/2027 05/28/2024, 100 11/2023, 05/26/2024, Additional history exists DTAP/TDAP/TD IMMUNIZATION (5 - Td or Tdap) 02/11/2032 02/10/2022, 07/05/2020, 01/24/2011, Additional history exists ZOSTER IMMUNIZATION Completed 11/01/2020, HPV IMMUNIZATION Aged Out No longer e ligible based on patient's age to complete this topic MENINGITIS IMMUNIZATION Aged Out No l onger eligible based on patient's age to complete this topic RSV MONOCLONAL ANTIBODY Aged Out No l onger eligible based on patient's age to complete this topic Procedures Procedure Name Priority Date/Time Associated Diagnosis [...] MD LAB - BLOOD ORDER MELYSS[facility] LAB[facility]AT[facility] [address] [facility] Lab (1st floor, no room number) [place] [address], [facility] * (ABNORMAL) Comprehensive metabolic panel (05/28/2024 6:51 [...] - 10.4 mg/dL 05/28/2024 7:27 AM CDT LABORATORY Comment:Reference intervals for this test were [...] Thompson MD LAB - BLOOD ORDERABL ES [facility] [email or web address] Lab (1st floor, no room number) [place] [address] * (ABNORMAL) Sodium (05/28/2024 6:51 AM CDT) Only the most recent of9 resultswithin the time period is included. Sodium 131(L) 135 - 145 mmol/L 05/28/2024 7:27 AM CDT [facility] Blood BLOOD SPECIMEN / Unknown Venipuncture / Unknown 05/28/2024 6:51 AM CDT 05/28/2024 7:02 AM CDT Kenneth Mayen MD LAB - BLOOD ORDERABL ES [facility] [address] Lab (1st floor, no room number) [place] [address] * (ABNORMAL) CBC with platelets (05/28/2024 6:51 [...] Thompson MD LAB - BLOOD ORDERABL ES RH LABORATORY [facility] [address] Lab (1st floor, no room number) [place] [address], [facility] * ANE AIRWAY ETT PERFORMABLE (05/27/2024 10:30 AM CDT) Narrative Concepcion Rosado APRN SOFTWARE ENGINEER KERNEL - 05/27/2024 10:30 AM CDT Concepcion Rosado APRN SOFTWARE ENGINEER KERNEL ? 05/27/2024 10:38 AM Airway ? Patient location during procedure: OR ? Procedure Start/Stop Times: 05/27/2024 10:30 AM Staff - ? SOFTWARE ENGINEER KERNEL: Concepcion Rosado APRN CRNA ? Performed By: SOFTWARE ENGINEER KERNEL Consent for Airway ? Urgency: elective Indications [...] Time: 05/27/2024 10:30 AM Leny Lyon MD [facility] * (ABNORMAL) Lipase (05/27/2024 6:25 AM CDT) Lipase 63(H) 13 - 60 U/L 05/27/2024 7:06 AM CDT LABORATORY Blood STRUCTURE OF RIGHT UPPER LIMB / Unknown Venipuncture / Unknown 05/27/2024 6:25 AM CDT 05/27/2024 6:38 AM CDT Dorita Thompson MD LAB - BLOOD ORDERABL ES LABORATORY [facility] [address] [facility] Lab (1st floor, no room number) [place] [address], [facility] * Sodium random urine (05/26/2024 5:17 PM [...] Thompson MD LAB - URINE ORDERABL ES RH LAB[facility]ATORY [facility] [address] [facility] Lab (1st floor, no room number) [place] [address], [facility] * Osmolality urine (05/26/2024 5:17 PM CDT) [...] Thompson MD LAB - URINE ORDERABL ES [facility] [address], [address] [place] [address], [facility] * XR ERCP (05/26/2024 2:56 PM CDT) Narrative [facility] - 05/26/2024 2:58 PM CDT This exam was marked as non-reportable because it will not be read by a radiologist or a [place] non-radiologist provider. Jefferson Gama MD IMG DIAGNOSTIC I MAGING ORDERABLES [facility] * ENDOSCOPIC RETROGRADE CHOLANGIOPANCREATOGRAPHY (05/26/2024 1:39 PM CDT) [facility] Patient Name: Car Calvert ? Procedure Date: 05/26/2024 1:39 PM ? Date of : 1950 ?Admit Type: Inpatient Age: 74 ? Gender: Male Attending MD: JEFFERSON GAMA MD, ??Total Sedation Time: Instrument Name: 264 - ERCP ? Procedure: ?ERCP Indications: ?Bile duct stone(s) Providers: ?JEFFERSON GAMA MD (Doctor) Referring MD: ? Md Other Clinic (Referring MD) Medicines: ?Monitored Anesthesia Care Complications: ?No immediate complications. Procedure: ?Pre-Anesthesia Assessment: ?- Pre-procedure physical examination revealed no ?contraindications to sedation. ?After obtaining informed consent, the scope was ?passed under direct vision. Throughout the ?procedure, the patient's blood pressure, pulse, and ?oxygen saturations were monitored continuously. The ?Olympus Exera II Duodenovideoscope (ERCP), Model # ?[id number]-[id number], [facility] # [id number] was introduced ?through the mouth, and used to inject contrast into ?and used to inject contrast into the bile duct. The ?ERCP was accomplished without difficulty. The ?patient tolerated the procedure well. ? Findings: ? The freight loader film was normal. The esophagus was successfully [...] Note Initiated On: 05/26/2024 1:39 PM MRN: ?[id number] Procedure Date: ? 05/26/2024 1:39:55 PM Total Procedure Duration: 0 hours 25 minutes 28 seconds Estimated Blood Loss: ? Scope In: 2:21:09 PM Scope Out: 2:46:37 PM RADIOLOGY RESULTS 05/26/2024 1:39 PM CDT Provider Not In System PROCEDURES RADIOLOGY RESULTS * (ABNORMAL) Glucose by meter (05/26/2024 12:26 PM CDT) GLUCOSE BY METER POCT 124(H) 70 - 99 mg/dL 05/26/2024 12:33 PM CDT [facility] POC Blood, Capillary BLOOD SPECIMEN / Unknown 05/26/2024 12:26 PM CDT 05/26/2024 12:33 PM CDT Seth Rios MD LAB - BEAKER POCT LABORATORY [facility] [address] Lab (1st floor, no room number) [address] * (ABNORMAL) Potassium (05/26/2024 12:04 PM CDT) Potassium 3.3(L) 3.4 - 5.3 mmol/L 05/26/2024 12:42 PM CDT [facility] Blood STRUCTURE OF RIGHT HAND / Unknown Venipuncture / Unknown 05/26/2024 12:04 PM CDT 05/26/2024 12:19 PM CDT Dorita Thompson MD LAB - BLOOD ORDERABL ES Performing Organization Address City/[facility]/ZIP Co de Phone Number [facility] [address] Lab (1st floor, no room number) [address] * INR (05/26/2024 9:47 AM CDT) INR 1.10 0.85 - 1.15 05/26/2024 10:12 AM CDT [facility] Blood STRUCTURE OF RIGHT HAND / Unknown Venipuncture / Unknown 05/26/2024 9:47 AM CDT 05/26/2024 9:56 AM CDT Asuncion Flynn PA-C LAB - BLOOD ORDERABLES LABORATORY [facility] [address] Lab (1st floor, no room number) [place] [address] * TSH with free T4 reflex (05/26/2024 6:49 AM CDT) TSH 1.27 0.30 - 4.20 uIU/mL 05/26/2024 12:29 PM CDT [facility] Blood STRUCTURE OF RIGHT HAND / Unknown Venipuncture / Unknown 05/26/2024 6:49 AM CDT 05/26/2024 6:59 AM CDT Dorita Thompson MD LAB - BLOOD ORDERABL ES LABORATORY [facility] [address] Lab (1st floor, no room number) [place] [address] from Last 3 Months Advance Directives For more information, please contact: [phone] * Full Code (Latest Code Status on File) Date Activated Date Inactivated Comments 05/25/2024 11:07 PM 05/28/2024 1:31 PM All basic a nd advanced life-sustaining interventions are performed as appropriate Question Answer Comments Code status determined by: Discussion with monica nt/ legal decision maker Care Teams Shipwright Apprentice Relationship Specialty Start Date End Date Dustin Victor MD [facility] [address] [place] [address] PCP - General Family Medicine 04/01/23
--- OUTSIDE RECORDS SUMMARY | 2024-05-29 14:15 | XMS_ITS | Encounter Summary ---
Author Organization [place] Address [facility] [place] [address] Care Team Providers Care Automobile Body Repair Supervisor Name Role Phone Dustin Victor MD Primary Care Provider [phone] Reason for Visit * Auth/Cert (Routine) Specialty Diagnoses / Procedures Referred By Contbenja t Referred To Contact Med Surg Diagnoses Choledocolithiasis and cholecysitis Choledocholithiasis with obstruction 5 [facility] [address] [place] [address] Referral ID Status Reason Start Date Expiration Date Visits Re quested Visits Authorized [id number] 1 1 Encounter Details Date Type Department Care Team (Late st Contact Info) Description 05/27/2024 10:21 AM CDT Anesthesia Event [facility] [address] [place] [address] Leny Lyon MD [facility] [address] [place] [address] Concepcion Rosado APRN CRNA [facility] [address] [place] [address] Anesthesia Record Procedure Summary Procedure Name Responsible Anesthesiologist Anesthesia Start Time Anesthesia Stop Time Davinci Robot-Assisted Laparoscopic Cholecystectomy (Abdomen) Leny Lyon MD 05/27/24 1021 05/27/24 1248 Events Date Time Event Comment 05/27/2024 1006 [employer] Ready for Procedure 1021 An Start Anesthesia Star t is defined as when the anesthesia provider assumed care, began anesthesia prep, remained continuously present with the patient, and excludes all time for performing the pre-anesthesia evaluation. The Pre-Anesthesia Evaluation was completed before Anesthesia Start. 1024 An Start Data 1025 AN REASSESS I attest that I have identified and re-evaluated the patient immediately before the induction of anesthesia and I am satisfied that the anesthetic plan is suitable for the patient's condition and procedure. The first vital signs recorded are pre- induction. Concepcion Rosado APRN [employer] 1027 An Induction 1027 MD Present 1030 An Intubation 1033 Anesthesia Ready for Procedu re 1033 MD Present 1137 MD Present 1230 MD Present 1241 AN Extubation All extubation criteria met prior to removal. 1242 an stop data 1248 An Stop Electronically signed by Concepcion Rosado APRN [employer] on May 27, 2024 12:47 PM Meds Name Total fentaNYL 50 mcg/mL 250 mcg lidocaine 2% 50 mg propofol 10 mg/mL 150 mg rocuronium 10 mg/mL 60 mg dexamethasone (DECADRON) 4 mg/mL 8 mg ondansetron 2 mg/mL 4 mg sugammadex (BRIDION) 200mg/2mL 200 mg ceFAZolin Sodium (ANCEF) injection 2 g 2 g indocyanine green 25 mg 2.5 mg LR 500 mL * Agents Name O2 N2O Air Exp Sevoflurane Exp Isoflurane Exp Desflurane Ins Sevoflurane Ins Isoflurane Ins Desflurane * Blood No blood administrations on file. Lines, Drains, and Airways Type Details Placement Removal Incision/Surgical Site No Incision; 11/14; 1424; Mouth; ERCP - no incision 05/26/24 1424 by Evelyn Brandt RN Incision/Surgical Site Incision; 4; 1053; Abdomen; Four Laparoscopic Port Sites 05/27/24 1053 by Malia Cuellar RN Peripheral IV 05/25/24; 2241 (Unkn own what time- placed by different facility.); Anterior, Right; Upper forearm 05/25/24 224 by Stone Hall, YASEMIN 05/28/24953 by Stone Hall, RN ETT Placement Date: 05/27/24; Placement Time: 1030 (created via procedure documentation); Mask Ventilation: 1; Induction Type: Intravenous; Ease of Intubation: Easy; Technique: Direct laryngoscopy; Tube Size: 8 mm; DL Blade Size: MAC 4; Grade View: 1; Adjucts: Stylet; Placement Person: PADMAJA; Attempts: 1 05/27/24 1030 by Concepcion Rosado APRN CRNA 05/27/24 1241 by Concepcion Rosado APRN CRNA documented in this encounter Social History Tobacco Use Types Packs/Day Years Used Date Smoking Tobacco: Former Cigarettes 2 015 - 1965 Adolescent Education Answer Date Record ed Getting [...] Answer Date Recorded Do you have housing? (Donna g is defined as stable permanent housing and does not include staying ouside in a car, in a tent, in an abandoned building, in an overnight long-term, or couch-surfing.) Yes 05/25/2024 Are you worried [...] on file Sexual Orientation Not on file documented as of this encounter OR Notes * Anesthesia Postprocedure Evaluation - Leyn Lyon MD - 05/27/2024 1:15 PM CDT Patient: Car Calvert Procedure: Procedure(s): Davinci Robot-Assisted Laparoscopic Cholecystectomy Anesthesia Type: General Note: Disposition: Inpatient Postop Pain Control: Uneventful Sign Out: Well controlled pain PONV: No Neuro/Psych: Uneventful Sign Out: Acceptable/Baseline neuro status Airway/Respiratory: Uneventful Sign Out: Acceptable/Baseline resp. status CV/Hemodynamics: Uneventful Sign Out: Acceptable CV status; No obvious hypovolemia; No obvious fluid overload Other NRE: DID A NON-ROUTINE EVENT OCCUR? No Last vitals: Vitals Value Taken Time BP 165/88 05/27/24 1305 Temp 97.6 ??F (36.4 ??C) 05/27/24 1245 Pulse 89 05/27/24 1314 Resp 14 05/27/24 1314 SpO2 95 % 05/27/24 1314 Vitals shown include unfiled device data. Electronically Signed By: Leny Lyon MD May 27, 2024 1:15 PM * Anesthesia Procedure Notes - Concepcion Rosado APRN CRNA - 05/27/2024 10:37 AM CDTAssociated Order(s): Airway Airway Patient location during procedure: OR Procedure Start/Stop Times: 05/27/2024 10:30 AM Staff - [employer]: Concepcion Rosado APRN [employer] Performed By: ET[employer]ER [employer] Consent for Airway Urgency: elective Indications and Patient Condition Indications for airway management: stephanie-procedural Induction type:intravenous Mask difficulty assessment: 1 - vent by mask Final Airway Details Final airway type: endotracheal airway Successful airway: ETT - single Endotracheal Airway Details ETT size (mm): 8.0 Cuffed: yes Successful intubation technique: direct laryngoscopy DL Blade Type: MAC 4 Grade View of Cords: 1 Adjucts: stylet Position: Right Bite block used: Soft Post intubation assessment Placement verified by: capnometry Number of attempts at approach: 1 Secured with: tape Ease of procedure: easy Dentition: Intact and Unchanged Medication(s) Administered Medication Administration Time: 05/27/2024 10:30 AM * Anesthesia Preprocedure Evaluation - Leny Lyon MD - 05/27/2024 8:37 AM CDT Anesthesia Pre-Procedure Evaluation Patient: Car Calvert : 1950 Procedure : Procedure(s): Davinci Laparoscopic Cholecystectomy without Grams History reviewed. No pertinent past medical history. History reviewed. No pertinent surgical history. Allergies Allergen Reactions Lisinopril Social History Tobacco Use Smoking status: Former Types: Cigarettes Start date: 2014 Quit date: 1966 Years since quittin.7 Smokeless tobacco: Not on file Substance Use Topics Alcohol use: Not on file Wt Readings from Last 1 Encounters: 05/25/24 106.5 kg (234 lb 12.8 oz) Anesthesia Evaluation ROS/MED HX ENT/Pulmonary: Comment: Interstitial lung disease Neurologic: - neg neurologic ROS Cardiovascular: (+) hypertension- - - - - METS/Exercise Tolerance: Hematologic: Musculoskeletal: GI/Hepatic: (+) cholecystitis/cholelithiasis, Renal/Genitourinary: Comment: Hyponatremia, asymptomatic. Nephrology recommends fluid restriction. Endo: (+) Obesity, Psychiatric/Substance Use: Infectious Disease: Malignancy: Other: Physical Exam Airway Mallampati: II TM distance: > 3 FB Neck ROM: full Mouth opening: > 3 cm Respiratory Devices and Support Dental Cardiovascular cardiovascular exam normal Pulmonary pulmonary exam normal OUTSIDE LABS: CBC: Lab Results Component Value Date WBC 10.1 05/27/2024 WBC 9.7 05/26/2024 HGB 12.3 (L) 05/27/2024 HGB 12.5 (L) 05/26/2024 HCT 36.2 (L) 05/27/2024 HCT 36.6 (L) 05/26/2024 PLT 142 (L) 05/27/2024 PLT 123 (L) 05/26/2024 BMP: Lab Results Component Value Date NA 123 (L) 05/27/2024 NA 123 (L) 05/27/2024 POTASSIUM 3.3 (L) 05/27/2024 POTASSIUM 3.3 (L) 05/26/2024 CHLORIDE 91 (L) 05/27/2024 CHLORIDE 87 (L) 05/26/2024 CO2 20 (L) 05/27/2024 CO2 19 (L) 05/26/2024 BUN 16.6 05/27/2024 BUN 19.1 05/26/2024 CR 1.08 05/27/2024 CR 1.22 (H) 05/26/2024 GLC 112 (H) 05/27/2024 GLC 124 (H) 05/26/2024 COAGS: Lab Results Component Value Date INR 1.10 05/26/2024 POC: No results found for: BGM, HCG, HCGS HEPATIC: Lab Results Component Value Date ALBUMIN 3.5 05/27/2024 PROTTOTAL 6.2 (L) 05/27/2024 ALT 297 (H) 05/27/2024 AST 315 (H) 05/27/2024 ALKPHOS 292 (H) 05/27/2024 BILITOTAL 2.7 (H) 05/27/2024 OTHER: Lab Results Component Value Date PRASANNA 8.6 (L) 05/27/2024 MAG 1.9 05/27/2024 LIPASE 63 (H) 05/27/2024 TSH 1.27 05/26/2024 Anesthesia Plan ASA Status: 3 NPO Status: NPO Appropriate Anesthesia Type: General. - Airway: ETT Induction: Intravenous. Maintenance: Balanced. Consents Anesthesia Plan(s) and associated risks, benefits, and realistic alternatives discussed. Questions answered and patient/development representative(s) expressed understanding. - Discussed: - Discussed with: Patient Postoperative Care Pain management: IV analgesics, Oral pain medications, Multi-modal analgesia. PONV prophylaxis: Ondansetron (or other 5HT-3), Dexamethasone or Solumedrol Comments: Other Comments: Limit IV fluids Leny Lyon MD I have reviewed the pertinent notes and labs in the chart from the past 30 days and (re)examined the patient. Any updates or changes from those notes are reflected in this note. # Hypokalemia: Lowest K = 3.1 mmol/L in last 2 days, will replace as needed # Hyponatremia: Lowest Na = 121 mmol/L in last 2 days, will monitor as appropriate # Hypocalcemia: Lowest Ca = 8.5 mg/dL in last 2 days, will monitor and replace as appropriate # Hypomagnesemia: Lowest Mg = 1.5 mg/dL in last 2 days, will replace as needed # Hypoalbuminemia: Lowest albumin = 3.4 g/dL at 05/26/2024 6:49 AM, will monitor as appropriate # Thrombocytopenia: Lowest platelets = 123 in last 2 days, will monitor for bleeding # Obesity: Estimated body mass index is 33.69 kg/m?? as calculated from the following: Height as of this encounter: 1.778 m (5' 10). Weight as of this encounter: 106.5 kg (234 lb 12.8 oz)., PRESENT ON ADMISSION documented in this encounter Miscellaneous Notes * Anesthesia Care Transfer Note - Concepcion Rosado APRN CRNA - 05/27/2024 12:47 PM CDT Patient: Car Calvert Procedure: Procedure(s): Davinci Robot-Assisted Laparoscopic Cholecystectomy Diagnosis: Cholecystitis [K81.9] Diagnosis Additional Information: No value filed. Anesthesia Type: General Note: Oropharynx: oropharynx clear of all foreign objects and spontaneously breathing Level of Consciousness: drowsy Oxygen Supplementation: face mask Independent Airway: airway patency satisfactory and stable Dentition: dentition unchanged Vital Signs Stable: post-procedure vital signs reviewed and stable Report to RN Given: handoff report given Patient transferred to: PACU Handoff Report: Identifed the Patient, Identified the Reponsible Provider, Reviewed the pertinent medical history, Discussed the surgical course, Reviewed Intra-OP anesthesia mangement and issues during anesthesia, Set expectations for post-procedure period and Allowed opportunity for questions andacknowledgement of understanding Vitals: Vitals Value Taken Time BP Temp Pulse Resp SpO2 Electronically Signed By: Concepcion Rosado APRN CRNA May 27, 2024 12:47 PM documented in this encounter Plan of Treatment Scheduled Procedures Name Priority Associated Diagnoses Date/Ti ny CHOLECYSTECTOMY, LAPAROSCOPIC Calculus of bile duct with acute cholecystitis and obstruction documented as of this encounter Procedures Procedure Name Priority Date/Time Associated Diagnosis Comments ANE AIRWAY ETT PERFORMABLE Routine 05/27/2024 10:30 AM CDT documented in this encounter Results * ANE AIRWAY ETT PERFORMABLE (05/27/2024 10:30 AM CDT) Narrative Concepcion Rosado APRN CRNA - 05/27/2024 10:30 AM CDT Concepcion Rosado APRN CRNA ? 05/27/2024 10:38 AM Airway ? Patient location during procedure: OR ? Procedure Start/Stop Times: 05/27/2024 10:30 AM Staff - ? [employer]: Concepcion Rosado APRN CRNA ? Performed By: [employer] Consent for Airway ? Urgency: elective Indications [...] Time: 05/27/2024 10:30 AM Leny Lyon MD [facility] documented in this encounter Visit Diagnoses Not on filedocumented in this encounter Administered Medications Inactive Administered Medications - up to 3 most recent administrations Medication Order MAR Action Action Date Dose Rate Site ceFAZolin Sodium (ANCEF) injection 2 g Routine, 2 g, Intravenous, PRE-OP/PRE-PROCEDURE, Starting on Thu05/27/24 at 0817, For 1 dose, Give first dose within 1 hour PRIOR to incision. If patient weight is greater than or equal to 120 kg increase dose to 3 g., Indications: Perioperative Pharmacoprophylaxis, Pre-procedure $Given 05/27/2024 10:21 AM CDT 2 g dexAMETHasone (DECADRON) injection Intravenous, PRN, Administer over 1 Minutes, Starting on Thu05/27/24 at 1027, Anesthesia Intra-op $Given 05/27/2024 10:27 AM CDT 8 mg fentaNYL (PF) (SUBLIMAZE) injection Intravenous, PRN, Administer over 3-5 Minutes, Starting on Thu05/27/24 at 1027, Anesthesia Intra-op $Given 05/27/2024 12:03 PM CDT 50 mcg $Given 05/27/2024 10:54 AM CDT 50 mcg $Given 05/27/2024 10:49 AM CDT 50 mcg indocyanine green (IC-GREEN) injection Intravenous, PRN, Starting on Thu05/27/24 at 1157, Anesthesia Intra-op $Given 05/27/2024 11:57 AM CDT 2.5 mg lactated ringers infusion Intravenous, CONTINUOUS PRN, Anesthesia Intra-op, Starting on Thu05/27/24 at 1021, Until Thu05/27/24 at 1248 $New Bag 05/27/2024 10:21 AM CDT lidocaine 2% injection (MDV) Intravenous, PRN, Starting on Thu05/27/24 at 1027, Anesthesia Intra-op $Given 05/27/2024 10:27 AM CDT 50 mg ondansetron (ZOFRAN) injection Intravenous, PRN, Administer over 2-5 Minutes, Starting on Thu05/27/24 at 1210, Anesthesia Intra-op $Given 05/27/2024 12:10 PM CDT 4 mg propofol (DIPRIVAN) injection 10 mg/mL vial Intravenous, PRN, Starting on Thu05/27/24 at 1027, Anesthesia Intra-op $Given 05/27/2024 10:27 AM CDT 150 mg rocuronium injection Intravenous, PRN, Starting on Thu05/27/24 at 1027, Anesthesia Intra-op $Given 05/27/2024 12:03 PM CDT 10 mg $Given 05/27/2024 10:27 AM CDT 50 mg sugammadex (BRIDION) injection Intravenous, PRN, Starting on Thu05/27/24 at 1236, Anesthesia Intra-op $Given 05/27/2024 12:36 PM CDT 200 mg documented in this encounter Care Teams Automobile Body Repair Supervisor Relationship Specialty Start Date End Date Dustin Victor MD [facility] [address] [place] [address] PCP - General Family Medicine 04/01/23 documented as of this encounter
--- OUTSIDE RECORDS SUMMARY | 2024-05-29 14:15 | XMS_ITS | Encounter Summary ---
Author Organization [facility] Address [address] [place] [address]. 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 Name Role Phone Dustin Victor MD Primary Care Provider [phone] Reason for Visit * Auth/Cert (Routine) Specialty Diagnoses / Procedures Referred By Juice t Referred To Contact Med Surg Diagnoses Choledocolithiasis and cholecysitis Choledocholithiasis with obstruction 5 Medical Surgical [address] [place] [address] Referral ID Status Reason Start Date Expiration Date Visits Re quested Visits Authorized [id number] 1 1 Encounter Details Date Type Department Care Team (Late st Contact Info) Description 05/27/2024 10:20 AM CDT - 05/27/2024 12:15 PM CDT Surgery [facility] PeriOp Services [address] [place] [id number] Kenneth Mayen MD [address] [place] [address] Davinci Robot-Assisted Laparoscopic Cholecystectomy Social History Tobacco Use Types Packs/Day Years [...] Date Recorded Do you have housing? (Donna jensen is defined as stable permanent housing and does not include staying ouside in a car, in a tent, in an abandoned building, in an overnight snf, or couch-surfing.) Yes 05/25/2024 Are you worried [...] on file documented as of this encounter Last Filed Vital Signs Vital Sign Reading Time Taken Comments Blood Pressure 132/69 05/27/2024 8:25 AM CDT Pulse 99 05/27/2024 8:25 AM CDT Temperature 36.1 ??C (96.9 ??F) 05/27/2024 8:25 AM CD T Respiratory Rate 17 05/27/2024 8:25 AM CDT Oxygen Saturation 98% 05/27/2024 8:25 AM CDT Inhaled Oxygen Concentration - - Weight 106.5 kg (234 lb 12.8 oz) 05/25/2024 9:35 PM CDT Height 177.8 cm (5' 10) 05/25/2024 9:35 PM CDT Body Mass Index 33.69 05/25/2024 9:35 PM CDT documented in this encounter Discharge Summaries * Dorita Thompson MD - 05/28/2024 10:41 AM CDT [facility] Hospitalist Discharge Summary Date of Admission: 05/25/2024 Date of Discharge: 05/28/2024 Discharging Provider: Dorita Thompson MD Discharge Service: Hospitalist Service Discharge Diagnoses Acute choledocholithiasis with Biliary Obstruction s/p ERCP with stone extraction Probable Cholangitis Acute cholecystitis s/p cholecystectomy Hyponatremia---improved Abnormal LFT's --mixed pattern Hypokalemia Hypomagnesemia Hypertension Clinically Significant Risk Factors # Obesity: Estimated body mass index is 33.69 kg/m?? as calculated from the following: Height as of this encounter: 1.778 m (5' 10). Weight as of this encounter: 106.5 kg (234 lb 12.8 oz). Follow-ups Needed After Discharge Follow-up Appointments Follow-up and recommended labs and tests Follow up with primary care provider, Dustin Victor, within 7 days to evaluate medication change and for hospital follow- up. The following labs/tests are recommended: CBC/CMP. Unresulted Labs Ordered in the Past 30 Days of this Admission Date and Time Order Name Status Description 05/27/2024 12:26 PM Surgical Pathology Exam In process Discharge Disposition Discharged to home Condition at discharge: Stable Hospital Course Car Calvert is a 74 year old male with past medical history significant for interstitial lung disease, hypertension, hyperlipidemia, and obesity who presented to [facility] from outside hospital on 05/25/2024 with acute abdominal pain and choledocholithiasis with evidence of cholecystitis. Acute choledocholithiasis with Biliary Obstruction s/p ERCP with stone extraction Probable Cholangitis Acute cholecystitis s/p cholecystectomy 2-day history of severe abdominal pain, nausea, and poor oral intake. Also with fevers to 101. Presented to outside hospital earlier today where right upper quadrant ultrasound revealed cholelithiasis with thickened gallbladder wall. MRCP was subsequently obtained which also showed a 3 mm obstructing stone in the distal CBD, with mild biliary dilation. Patient subsequently transferred from [facility] for ERCP. Patient was empirically started on zosyn. Patient underwent stone extraction on 05/26 and eventually cholecystectomy on 05/27. Diet was advanced as tolerated. -S/P IV zosyn 10-3 to 05/27 -start PO Augmentin 875 mg BID for 7 days -patient declined any pain meds upon discharge Hyponatremia, likely chronic---improved Na 123 at OSH. Started on mIVF. No improvement in sodium. Nephrology consulted, appreciated recommendations. Likely multifactorial in the setting poor PO intake, hydrochlorothiazide use and some component of SIADH. Prior to discharge Na improved to 131. -stop hydrochlorothiazide-triamterene upon discharge -follow up with PCP and repeat lab check to make further plan. Abnormal LFT's ALT--208-->297-->229 AST--90--->315--->200 Alk Phos--166--->292--->288 T Bili--1.2--->2.7--->0.7 This showed mixed pattern. Patient is s/p ERCP with extraction of stone. Could be related to Cholangitis as patient presented with abdominal pain and fever, now has mild leukocytosis -continue Antibiotics asa above -follow up with PCP for repeat lab check -stop atorvastatin upon discharge until patient follow up with PCP Hypokalemia---improved Hypomagnesemia---Improved -RN managed protocol Interstitial Lung Disease Patient reports not being on medications. Does not use chronic oxygen therapy and is not hypoxic. Hyperlipidemia: hold Prior to admission his statin for now Hypertension: resume prior to admission amlodipine upon discharge, hold HCTZ triamterene in the setting of ahyponatremia Tobacco Use Disorder: No longer smokes. BPH: resume Prior to admission tamsulosin and finasteride Consultations This Hospital Stay GASTROENTEROLOGY IP CONSULT NEPHROLOGY IP CONSULT SURGERY GENERAL IP CONSULT Code Status Full Code Time Spent on this Encounter I, Dorita Thompson MD, personally saw the patient today and spent greater than 30 minutes discharging this patient. Dorita Thompson MD [place] [address] MEDICAL SURGICAL [address] [facility] [id number] Physical Exam Vital Signs: Temp: 97.9 ??F (36.6 ??C) Temp src: Oral BP: (!) 151/80 Pulse: 93 Resp: 16 SpO2: 95 % O2 Device: None (Room air) Oxygen Delivery: 2 LPM Weight: 234 lbs 12.8 oz General Appearance: Appears calm, comfortable, NAD Respiratory: on RA, equal air entry, no wheezing or crackles Cardiovascular: normal rate, regular rhythm, no murmur GI: soft, non tender, non distended Skin: visible skin wnl Other: No LE edema noted. Neuro: Alert and oriented X3, no focal deficit. Primary Care Physician Dustin Victor Discharge Orders Reason for your hospital stay Dear Car, You were admitted to the hospital due to a stone in the bile duct, inflammation of gall bladder andpossible infection of biliary tree. During the course of hospital stay you underwent ERCP for the removal of stone. During the ERCP you were also noted to have an ulcer in the first part of your small intestine. You eventually underwent surgery for gall bladder removal. You were also noted to have low sodium level and were evaluated by kidney doctor. Prior to discharge your sodium level improved,you tolerated diet and able to mobilize. You will be going home on a 7 day course of antibiotics to treat the possible infection in your abdomen. You will also be starting a new medication called Pantoprazole to help with ulcer healing. Youwill stop taking famotidine since now you are on Pantoprazole. You will stop taking hydrochlorothiazide- triamterene and atorvastatin until you follow up with your primary doctor and do labs to check your liver and kidney function. Your primary doctor then can decide whether to resume those medication or not or may suggest alternatives. Please review your medication list carefully as there will be changes. You should continue to feel better at home but if you develop any fever, chills, abdominal pain, nausea, vomiting or any other new symptoms please seek immediate medical care. It was a pleasure taking care of you. Good luck! Dorita Thompson MD Follow-up and recommended labs and tests Follow up with primary care provider, Dustin Victor, within 7 days to evaluate medication change andfor hospital follow- up. The following labs/tests are recommended: CBC/CMP. Activity Your activity upon discharge: activity as tolerated Diet Follow this diet upon discharge: Current Diet:Orders Placed This Encounter Fluid restriction 1800 ML FLUID Advance Diet as Tolerated: Regular Diet Adult; Regular Diet Adult Significant Results and Procedures Most Recent 3 CBC's: Recent Labs Lab Test 05/28/24 0651 05/27/24 0625 05/26/24 0649 WBC 12.1* 10.1 9.7 HGB 12.1* 12.3* 12.5* MCV 89 89 89 PLT 164 142* 123* Most Recent 3 BMP's: Recent Labs Lab Test 05/28/24 0651 05/27/24 2340 05/27/24 1750 05/27/24 1350 05/27/24 0625 05/26/24 1743 05/26/24 1226 05/26/24 1204 05/26/24 0649 NA 131* 131* 129* 125* < > 123* 123* < > -- 122* 121* POTASSIUM 3.7 -- -- -- 3.3* -- -- 3.3* 3.1* CHLORIDE 97* -- -- -- 91* -- -- -- 87* CO2 19* -- -- -- 20* -- -- -- 19* BUN 16.6 -- -- -- 16.6 -- -- -- 19.1 CR 1.06 -- -- -- 1.08 -- -- -- 1.22* ANIONGAP 15 -- -- -- 12 -- -- -- 15 EMMA 8.3* -- -- -- 8.6* -- -- -- 8.5* GLC 126* -- -- -- 112* -- 124* -- 124* < > = values in this interval not displayed. Most Recent 2 LFT's: Recent Labs Lab Test 05/28/24 0651 05/27/2425 AST 200* 315* ALT 229* 297* ALKPHOS 288* 292* BILITOTAL 0.7 2.7* Discharge Medications Current Discharge Medication List START taking these medications Details amoxicillin-clavulanate (AUGMENTIN) 875-125 MG tablet Take 1 tablet by mouth every 12 hours for 7 days. Qty: 14 tablet, Refills: 0 Associated Diagnoses: Cholangitis (H) pantoprazole (PROTONIX) 40 MG EC tablet Take 1 tablet (40 mg) by mouth every morning (before breakfast). Qty: 30 tablet, Refills: 0 Associated Diagnoses: Duodenal ulcer without hemorrhage or perforation and without obstruction CONTINUE these medications which have NOT CHANGED Details amLODIPine (NORVASC) 5 MG tablet Take 5 mg by mouth daily. ASPIRIN LOW DOSE 81 MG EC tablet Take 81 mg by mouth daily. diclofenac (VOLTAREN) 1 % topical gel Apply 4 g topically 4 times daily as needed for moderate pain. finasteride (PROSCAR) 5 MG tablet Take 5 mg by mouth daily. metoprolol tartrate (LOPRESSOR) 25 MG tablet Take 25 mg by mouth 2 times daily. multivitamin w/minerals (THERA-VIT-M) tablet Take 1 tablet by mouth daily. [place]-3 Fatty Acids (FISH OIL) 1200 MG capsule Take 1,200 mg by mouth daily. polyvinyl alcohol (LIQUIFILM TEARS) 1.4 % ophthalmic solution Apply 2 drops to eye every 2 hours asneeded for dry eyes. tamsulosin (FLOMAX) 0.4 MG capsule Take 0.4 mg by mouth daily. STOP taking these medications atorvastatin (LIPITOR) 40 MG tablet Comments: Reason for Stopping: famotidine (PEPCID) 20 MG tablet Comments: Reason for Stopping: triamterene-HCTZ (MAXZIDE-25) 37.5-25 MG tablet Comments: Reason for Stopping: Allergies Allergies Allergen Reactions Lisinopril documented in this encounter Discharge Instructions * Discharge Instructions* Barb Osorio PA-C - 05/28/2024 9:29 AM CDT HOME CARE FOLLOWING LAPAROSCOPIC CHOLECYSTECTOMY Citlali Cotter, Melisa Mayen, R. O???Clary Andersen J. Shaheen FOLLOW-UP AFTER SURGERY: -Our office will contact you approximately 2-3 weeks after surgery to check on your progress and answer any questions you may have. If you are doing well, you will not need to return for an office appointment. If any concerns are identified over the phone, we will help you make an appointment to see a provider. -If you have not received a phone call, have any questions or concerns, or would like to be seen, please call us at [phone]. We are located at: [address] [facility], [address]; [place] [address] INCISIONAL CARE: Replace the bandage over your incisions DAILY until all drainage stops, or if more comfortable to have in place. If present, leave the steri-strips (white paper tapes) in place for 14 days after surgery. If Dermabond (a type of skin glue) is present, leave in place until it wears/flakes off (2-3 weeks). BATHING: OK to shower 48 hours after surgery. Avoid baths for 1 week after surgery. You may wash your hair at any time. Gently pat your incision dry after bathing. Do not apply lotions, creams, or ointments to incisions. ACTIVITY: Light Activity -- you may immediately be up and about as tolerated. Walking is encouraged, increaseas tolerated. Driving/Light Work-- when comfortable and off narcotic pain medications. Strenuous Work/Activity -- limit lifting to 20 pounds for 2 weeks. Progressively increase with time. Active Sports (running, biking, etc.) -- cautiously resume after 2 weeks. DIET: Start with liquids and gradually increase diet as tolerated. Drink plenty of fluids. While taking pain medications, consider use of a stool softener, increase your fiber in your diet, or add a fiber supplement (like Metamucil, Citrucel) to help prevent constipation - a possible side effect of pain m edications. It is not uncommon to experience some bowel changes (loose stools or constipation) after surgery. Your body has to adapt to you no longer having a gall bladder. To help minimize this sideeffect, avoid fatty foods for 1-2 weeks after surgery. You may then slowly increase the amount of fatty foods in your diet. NAUSEA: If nauseated from the anesthetic/pain meds; rest in bed, get up cautiously with assistance, and drink clear liquids (juice, tea, broth). -CONTACT US IF THE FOLLOWING DEVELOPS: 1. A fever that is above 101?? 2. Increased redness, warmth, drainage, bleeding, or swelling. 3. Pain that is not relieved by rest/ice and your prescription. 4. Increasing pain after 48 hours. 5. Drainage that is thick, cloudy, yellow, green or white. If you have other questions, please call the office Thursday thru Thursday between 8am and 4:30pm to discuss with the nurse or physician assistant professor of anthropology. # There is a surgeon INSTRUCTIONAL INTERVENTIONIST on weekday evenings and over the weekend in case of urgent need only, and may be contacted at the same number. If you are having an emergency, call 911 or proceed to your nearest emergency department. documented in this encounter Medications at Time of Discharge Medication Sig Dispensed Refills Start Date End Date amLODIPine (NORVASC) 5 MG tablet Take 5 mg by mouth daily. 02/05/2023 amoxicillin-clavulanate (AUGMENTIN) 875-125 MG tabletIndications:Intra -Abdominal Infection Take 1 tablet by mouth every 12 hours for 7 days. 14 tablet 05/28/2024 06/04/2024 ASPIRIN LOW DOSE 81 MG EC tablet Take 81 mg by mouth daily. 03/07/2024 diclofenac (VOLTAREN) 1 % topical gel Apply 4 g topically 4 times daily as needed for moderate pain. 09/03/2023 finasteride (PROSCAR) 5 MG tablet Take 5 mg by mouth daily. 02/18/2024 metoprolol tartrate (LOPRESSOR) 25 MG tablet Take 25 mg by mouth 2 times daily. 07/13/2023 multivitamin w/minerals (THERA-VIT-M) tablet Take 1 tablet by mouth daily. 01/11/2024 [place]-3 Fatty Acids (FISH OIL) 1200 MG capsule Take 1,200 mg by mouth daily. 02/05/2023 pantoprazole (PROTONIX) 40 MG EC tabletIndications:Duode nal ulcer without hemorrhage or perforation and without obstruction Take 1 tablet (40 mg) by mouth every morning (before breakfast). 30 tablet 05/29/2024 06/28/2024 polyvinyl alcohol (LIQUIFILM TEARS) 1.4 % ophthalmic solution Apply 2 drops to eye every 2 hours as needed for dry eyes. 03/02/2024 tamsulosin (FLOMAX) 0.4 MG capsule Take 0.4 mg by mouth daily. 02/18/2024 documented as of this encounter Progress Notes * Stone Hall RN - 05/28/2024 11:26 AM CDT Discharge Note Patient discharged to home via private vehicle accompanied by significant other . IV: Discontinued Prescriptions faxed to pharmacy. Belongings reviewed and sent with patient. Home medications returned to patient: NA Equipment sent with: patient, N/A. patient verbalizes understanding of discharge instructions. AVS given to patient. Additional education completed? Wound Care for lap sites Stone Hall RN * Barb Osorio PA-C - 05/28/2024 9:26 AM CDT [facility] General Surgery Progress Note Assessment and Plan: Assessment: 1 Day Post-Op s/p Procedure(s): Davinci Robot-Assisted Laparoscopic Cholecystectomy Plan: -OK to discharge from surgical perspective -Declines pain med, has Oxy at home from prior surgery -Surgery PA will follow up by telephone 2-3 weeks Interval History: Comfortable in chair, present. Feels well, no c/o. Not taking narcotics. Tolerating diet and +BM this am. Physical Exam: Blood pressure (!) 151/80, pulse 93, temperature 97.9 ??F (36.6 ??C), temperature source Oral, resp. rate 16, height 1.778 m (5' 10), weight 106.5 kg (234 lb 12.8 oz), SpO2 95%. I/O last 3 completed shifts: In: 500 [I.V.:500] Out: 20 [Blood:20] Abdomen: soft, non-distended, non-tender Inc(s) - clean, dry, intact Data: Recent Labs Lab 05/28/24 0651 05/27/24 0625 05/26/24 0649 WBC 12.1* 10.1 9.7 HGB 12.1* 12.3* 12.5* HCT 35.8* 36.2* 36.6* MCV 89 89 89 PLT 164 142* 123* Recent Labs Lab 05/28/24 0651 05/27/24 2340 05/27/24 1750 05/27/24 1350 05/27/24 0625 05/26/24 1743 05/26/24 1226 05/26/24 1204 05/26/24 0649 NA 131* 131* 129* 125* < > 123* 123* < > -- 122* 121* POTASSIUM 3.7 -- -- -- 3.3* -- -- 3.3* 3.1* CHLORIDE 97* -- -- -- 91* -- -- -- 87* CO2 19* -- -- -- 20* -- -- -- 19* ANIONGAP 15 -- -- -- 12 -- -- -- 15 GLC 126* -- -- -- 112* -- 124* -- 124* BUN 16.6 -- -- -- 16.6 -- -- -- 19.1 CR 1.06 -- -- -- 1.08 -- -- -- 1.22* GFRESTIMATED 74 -- -- -- 72 -- -- -- 62 EMMA 8.3* -- -- -- 8.6* -- -- -- 8.5* MAG 2.3 -- -- -- 1.9 -- -- -- 1.5* PROTTOTAL 6.1* -- -- -- 6.2* -- -- -- 6.5 ALBUMIN 3.3* -- -- -- 3.5 -- -- -- 3.4* BILITOTAL 0.7 -- -- -- 2.7* -- -- -- 1.2 ALKPHOS 288* -- -- -- 292* -- -- -- 166* AST 200* -- -- -- 315* -- -- -- 90* ALT 229* -- -- -- 297* -- -- -- 208* < > = values in this interval not displayed. Barb Osorio PA-C Text page: [phone] 8 am to 4 pm After 4 pm, call * Dorita Thompson MD - 05/27/2024 7:52 PM CDT [facility] Medicine Progress Note - Hospitalist Service Date of Admission: 05/25/2024 Assessment & Plan Car Calvert is a 74 year old male with past medical history significant for interstitial lung disease, hypertension, hyperlipidemia, and obesity who presented to [facility] from outside hospital on 05/25/2024 with acute abdominal pain and choledocholithiasis with evidence of cholecystitis. Acute choledocholithiasis with Biliary Obstruction s/p ERCP with stone extraction Acute cholecystitis s/p cholecystitis 2-day history of severe abdominal pain, nausea, and poor oral intake. Also with fevers to 101. Presented to outside hospital earlier today where right upper quadrant ultrasound revealed cholelithiasis with thickened gallbladder wall. MRCP was subsequently obtained which also showed a 3 mm obstructing stone in the distal CBD, with mild biliary dilation. Patient subsequently transferred from [facility] for possible ERCP . Patient underwent stone extraction on 05/26 and eventually cholecystectomy on 05/27. Discussed with GI, low suspicion for acute cholangitis. -CLD then advance diet as tolerated -stop IV zosyn and IVF -Pain control and antiemetics PRN Hyponatremia, likely chronic Na 123 at OSH. Started on mIVF. No improvement in sodium. Nephrologyc onsulted and following. Likely some component for SIADH and also he was on hydrochlorothiazide. -free water restriction to 18oo ml/day -Na Q6H Abnormal LFT's ALT--208-->297 AST--90--->315 Alk Phos--166--->292 T Bili--1.2--->2.7 This showed mixed pattern. Patient is s/p ERCP with extraction of stone. -continue to monitor LFT -discussed with GI, low suspicion for cholangitis at this time. Hypokalemia Hypomagnesemia -RN managed protocol Interstitial Lung Disease Patient reports not being on medications. Does not use chronic oxygen therapy and is not hypoxic. Hyperlipidemia: hold Prior to admission his statin for now Hypertension: hold Prior to admission amlodipine, HCTZ triamterene in the setting of acute infection Tobacco Use Disorder: No longer smokes. BPH: resume Prior to admission tamsulosin and finasteride Diet: Advance Diet as Tolerated: Full Liquid Diet; Regular Diet Adult DVT Prophylaxis: Pneumatic Compression Devices Yu Catheter: Not present Lines: None Cardiac Monitoring: None Code Status: Full Code Clinically Significant Risk Factors # Hypokalemia: Lowest K = 3.1 mmol/L [...] (234 lb 12.8 oz)., PRESENT ON ADMISSION Disposition Plan Medically Ready for Discharge: Anticipated tomorrow Dorita Thompson MD Hospitalist Service [facility] Securely message with [employer] (more info) Text page via [facility] Paging/Directory Interval History No acute events overnight. No new complaints. Feels well. Physical Exam Vital Signs: Temp: 97.8 ??F (36.6 ??C) Temp src: Oral BP: (!) 160/82 Pulse: 91 Resp: 16 SpO2: 98 % O2 Device: None (Room air) Oxygen Delivery: 2 LPM Weight: 234 lbs 12.8 oz General Appearance: calm, comfortable, not in acute distress Respiratory: No respiratory distress, equal air entry bilateral Cardiovascular: Normal rate, regular rhythm, no murmur GI: Soft, mild tenderness, nondistended Skin: Visible skin appears within normal Other: Mood and affect appropriate Medical Decision Making 44 MINUTES SPENT BY ME on the date of service doing chart review, history, exam, documentation & further activities per the note. Data PAST 24 HR DATA REVIEWED * Layla Kee RN - 05/27/2024 2:24 PM CDT Spoke with MDA about elevated BP's. They are ok with pt returning to the floor. Stone HAZEL notified. * Lnida Mclean MD - 05/27/2024 1:32 PM CDT GI chart check: ERCP final report is pending, will be entered later today. Spoke with Dr. Gama who did ERCP and stone removed from CBD, he also noted some peptic ulcers so patient should avoid NSAIDs and beon daily PPI. Patient had anat today. Signing off but please call with questions or concerns. Marielos Mclean MD [facility] * Dannie Simmons MD - 05/27/2024 1:16 PM CDT Renal Medicine Progress Note Assessment/Plan: Assessment: Car Calvert is a 74 year old male with PMH ILD, HTN, HLD, obesity who was admitted on 05/25/2024 with choledocholithiasis and acute cholecystitis. Hyponatremia Na 126 on admission (prior to transfer was 123), worsened to 121 after IVF, but seems to be fluctuating around 123. Pt asymptomatic. On presentation hypovolemic in presentation, also with n/v which could cause high ADH state (suggested by urine Na 52 and urine Osm 574). - once out of PACU, discontinue LR - q6h Na checks - goal Na in AM 129-131 - no fluid restriction for now until next recheck. If Na <125 then can start 1.8L fluid restriction Mild CKD Baseline Cr appears to be 1.1-1.2, eGFR 55-60. At current baseline. Choledocolithiasis Acute cholecystitis Fevers, abd pain, n/v, elevated LFTs, RUQ notable for thick gallbladder wall. MRCP with 3 mm obstructing stone in CBD. Had ERCP 05/26. On empiric abx. Hypokalemia, mild K 3.3. Can replace prn. Plan/Recs: 1) hold LR once out of PACU/finished with current bag 2) q6h Na check 3) if next recheck <125, start 1.8L fluid restriction Discussed with Dr. Thompson. Reviewed notes from Dr. Thompson (hospitalist), Dr. Mayen (gen surg), Dr. Gama (GI). Dannie Simmons MD [facility] consultants Office: [phone] Interval History: No acute events overnight Na got to as high as 127, but dropped again this AM Underwent cholecystectomy today Seen in PACU, doing ok. Feels warm Denies SOB or other concerns No lightheadedness, dizziness, weakness, etc Medications and Allergies: Current Facility-Administered Medications Medication Dose Route Frequency Provider Last Rate Last Admin [Held by provider] amLODIPine (NORVASC) tablet 5 mg 5 mg Oral Daily Dorita Thompson MD ceFAZolin Sodium (ANCEF) injection 2 g 2 g Intravenous See Admin Instructions Leny Ace MD [Auto Hold] famotidine (PEPCID) tablet 20 mg 20 mg Oral BID Dorita Thompson MD 20 mg at 05/26/242055 [Auto Hold] finasteride (PROSCAR) tablet 5 mg 5 mg Oral Daily Dorita Thompson MD 5 mg at 05/26/242055 [Auto Hold] metoprolol tartrate (LOPRESSOR) tablet 25 mg 25 mg Oral BID Dorita Thompson MD 25 mg at 05/26/242055 [Auto Hold] piperacillin-tazobactam (ZOSYN) 3.375 g vial to attach to NS 100 mL bag 3.375 g Intravenous Q6H Sulaiman Wan MD 3.375 g at 05/27/24 0613 sodium chloride (PF) 0.9% PF flush 3 mL 3 mL Intracatheter Q8H Shivam Norris MD [Auto Hold] sodium chloride (PF) 0.9% PF flush 3 mL 3 mL Intracatheter Q8H Sulaiman Wan MD 3 mL at 05/26/24 0044 [Auto Hold] tamsulosin (FLOMAX) capsule 0.4 mg 0.4 mg Oral Daily Dorita Thompson MD 0.4 mg at 05/26/24 1641 [Held by provider] triamterene-HCTZ (MAXZIDE-25) 37.5-25 MG per tablet 1 tablet 1 tablet Oral QAM Dorita Thompson MD Allergies Allergen Reactions Lisinopril Physical Exam: Vitals were reviewed BP (!) 165/88 Pulse 103 Temp 97.6 ??F (36.4 ??C) (Temporal) Resp 17 Ht 1.778 m (5' 10) Wt 106.5 kg (234 lb 12.8 oz) SpO2 92% BMI 33.69 kg/m?? Wt Readings from Last 3 Encounters: 05/25/24 106.5 kg (234 lb 12.8 oz) Intake/Output Summary (Last 24 hours) at 05/27/2024 1316 Last data filed at 05/27/2024 1238 Gross per 24 hour Intake 1450 ml Output 20 ml Net 1430 ml GENERAL APPEARANCE: NAD, fatigued appearing HEENT: normocephalic, dry MM RESP: clear CV: RRR EXTREMITIES/SKIN: no edema NEURO: drowsy but awakens to voice, oriented, normal speech Data: [facility] Recent Labs Lab 05/27/24 0625 05/27/24 0100 05/26/24 1743 05/26/24 1226 05/26/24 1204 05/26/24 0649 NA 123* 123* 127* 123* -- 122* 121* POTASSIUM 3.3* -- -- -- 3.3* 3.1* CHLORIDE 91* -- -- -- -- 87* EMMA 8.6* -- -- -- -- 8.5* CO2 20* -- -- -- -- 19* BUN 16.6 -- -- -- -- 19.1 CR 1.08 -- -- -- -- 1.22* GLC 112* -- -- 124* -- 124* CBC Recent Labs Lab 05/27/24 0625 05/26/24 0649 WBC 10.1 9.7 HGB 12.3* 12.5* HCT 36.2* 36.6* MCV 89 89 PLT 142* 123* Lab Results Component Value Date AST 315 (H) 05/27/2024 ALT 297 (H) 05/27/2024 ALKPHOS 292 (H) 05/27/2024 BILITOTAL 2.7 (H) 05/27/2024 Lab Results Component Value Date INR 1.10 05/26/2024 No results found for: COLOR, APPEARANCE, URINEGLC, URINEBILI, URINEKETONE, SG, URINEPH, PROTEIN, UROBILINOGEN, NITRITE, LEUKEST Attestation: I have reviewed today's vital signs, notes, medications, labs and imaging. Dannie Simmons MD [facility] - Nephrology Office: [phone] * Dorita Thompson MD - 05/26/2024 4:03 PM CDT [facility] Medicine Progress Note - Hospitalist Service Date of Admission: 05/25/2024 Assessment & Plan Car Calvert is a 74 year old male with past medical history significant for interstitial lung disease, hypertension, hyperlipidemia, and obesity who presented to [facility] from outside hospital on 05/25/2024 with acute abdominal pain and choledocholithiasis with evidence of cholecystitis. Acute choledocholithiasis with Biliary Obstruction Acute cholecystitis 2-day history of severe abdominal pain, nausea, and poor oral intake. Also with fevers to 101. Presented to outside hospital earlier today where right upper quadrant ultrasound revealed cholelithiasis with thickened gallbladder wall. MRCP was subsequently obtained which also showed a 3 mm obstructing stone in the distal CBD, with mild biliary dilation. Patient subsequently transferred from [facility] for possible ERCP -GI consulted, appreciate recommendations. Status post ERCP, no report available to review at the time of writing this note -GS consulted -continue zosyn 3.375mg Q6H IV -Pain control and antiemetics PRN -Normal saline at 75 mL/h Hyponatremia Na 123 at OSH. Started on mIVF. Rechecking sodium on admission to [facility] and will continues fluids forgoal correction to no more than 129 by tomorrow afternoon, as currently no records are available and chronicity is unknown. Suspect likely acute in setting of poor oral intake from cholecystitis, butwill treat as if chronic to avoid too rapid correction. Suspecting HCTZ-triamterene also contributing -Patient was started on IV LR upon admission. Decreased from 1 26-1 21. -Change fluids to IV normal saline -Na Q6H -Check urine sodium, osmolality, TSH -Urology consult placed Hypokalemia Hypomagnesemia -RN managed protocol Interstitial Lung Disease Patient reports not being on medications. Does not use chronic oxygen therapy and is not hypoxic. Hyperlipidemia: Prior to admission his statin for now Hypertension: Prior to admission amlodipine, HCTZ triamterene in the setting of acute infection Tobacco Use Disorder: No longer smokes. BPH: Prior to admission tamsulosin and finasteride Diet: Clear Liquid Diet DVT Prophylaxis: Pneumatic Compression Devices Yu Catheter: Not present Lines: None Cardiac Monitoring: ACTIVE order. Indication: Electrolyte Imbalance (24 hours)- Magnesium <1.3 mg/ml; Potassium < =2.8 or > 5.5 mg/ml Code Status: Full Code Clinically Significant Risk Factors Present on Admission # Hypokalemia: Lowest K = 3.1 mmol/L [...] 6:49 AM, will monitor as appropriate # Drug Induced Platelet Defect: home medication list includes an antiplatelet medication # Obesity: Estimated body mass index is 33.69 kg/m?? as calculated from the following: Height as of this encounter: 1.778 m (5' 10). Weight as of this encounter: 106.5 kg (234 lb 12.8 oz). Disposition Plan Medically Ready for Discharge: Anticipated in 2-4 Days Dorita Thompson MD Hospitalist Service [facility] Securely message with [employer] (more info) Text page via [employer] Paging/Directory Interval History No acute events overnight. Patient was seen after ERCP. Feels okay. Physical Exam Vital Signs: Temp: 97.7 ??F (36.5 ??C) Temp src: Temporal BP: 132/78 Pulse: 91 Resp: 18 SpO2: 97 % O2 Device: None (Room air) Weight: 234 lbs 12.8 oz General Appearance: calm, comfortable, not in acute distress Respiratory: No respiratory distress, equal air entry bilateral Cardiovascular: Normal rate, regular rhythm, no murmur GI: Soft, mild tenderness, nondistended Skin: Visible skin appears within normal Other: Mood and affect appropriate Medical Decision Making 45 MINUTES SPENT BY ME on the date of service doing chart review, history, exam, documentation & further activities per the note. Data PAST 24 HR DATA REVIEWED * Stone Hall, RN - 05/25/2024 11:46 PM CDT 05/25/24 2200 Skin Skin WDL WDL Device Skin Interventions Taken No adjustments needed Admission/Transfer from: [facility] 2 RN skin assessment completed. Yes Significant findings include: None LDA added (if applicable)? Not Applicable Requested WOC Nurse Consult from ? Not Applicable Stone Hall RN documented in this encounter H&P Notes * Sulaiman Wan MD - 05/25/2024 11:18 PM CDT [facility] History and Physical - Hospitalist Service Date of Admission: 05/25/2024 Assessment & Plan Car Calvert is a 74 year old male with past medical history significant for interstitial lung disease, hypertension, hyperlipidemia, and obesity who presented to [facility] from outside hospital on 05/25/2024 with acute abdominal pain and choledocholithiasis with evidence of cholecystitis. Choledocholithiasis with Biliary Obstruction Cholecystitis 2-day history of severe abdominal pain, nausea, and poor oral intake. Also with fevers to 101. Presented to outside hospital earlier today where right upper quadrant ultrasound revealed cholelithiasis with thickened gallbladder wall. MRCP was subsequently obtained which also showed a 3 mm obstructing stone in the distal CBD, with mild biliary dilation. Patient subsequently transferred from [facility] for possible ERCP tomorrow. Of note, this was apparently confirmed with GI that it could be performedat [facility] prior to patient being transferred. Will continue antibiotics overnightto make patient NPO with anticipation of procedure tomorrow. -GI consulted, appreciate recommendations -Likely ERCP tomorrow -NPO @ 0000 -zosyn 3.375mg Q6H IV -Pain control and antiemetics PRN Hyponatremia Na 123 at OSH. Started on mIVF. Rechecking sodium on admission to [facility] and will continues fluids forgoal correction to no more than 129 by tomorrow afternoon, as currently no records are available and chronicity is unknown. Suspect likely acute in setting of poor oral intake from cholecystitis, butwill treat as if chronic to avoid too rapid correction. -mIVF -Na Q6H Interstitial Lung Disease Patient reports not being on medications. Does not use chronic oxygen therapy and is not hypoxic. Hyperlipidemia: Med rec pending Hypertension: Med rec pending. Hydralazine PRN. Tobacco Use Disorder: No longer smokes. BPH: Med rec pending Diet: NPO per Anesthesia Guidelines for Procedure/Surgery Except for: Meds Combination Diet Clear Liquid DVT Prophylaxis: Pneumatic Compression Devices Yu Catheter: Not present Lines: None Cardiac Monitoring: ACTIVE order. Indication: Electrolyte Imbalance (24 hours)- Magnesium <1.3 mg/ml; Potassium < =2.8 or > 5.5 mg/ml Code Status: Full Code Clinically Significant Risk Factors Present on Admission # Obesity: Estimated body mass index is 33.69 kg/m?? as calculated from the following: Height as of this encounter: 1.778 m (5' 10). Weight as of this encounter: 106.5 kg (234 lb 12.8 oz). Disposition Plan Medically Ready for Discharge: Anticipated in 2-4 Days Sulaiman Wan MD Hospitalist Service [facility] Securely message with [employer] (more info) Text page via [facility] Paging/Directory Chief Complaint Abdominal pain History is obtained from the patient History of Present Illness Car Calvert is a 74 year old male with past medical history significant for interstitial lung disease, hypertension, hyperlipidemia, and obesity who presented to [facility] from outside hospital on 05/25/2024 with acute abdominal pain and choledocholithiasis with evidence of cholecystitis. Patient reported onset of severe right upper quadrant abdominal pain on 05/23/2024. This was associated with fever to 101, chills, nausea, but no vomiting. He stated that over the course of the next couple of days the pain progressively got worse and he was not able to tolerate any food, and only small months of drink. He presented earlier today to [facility] emergency department. Laboratory studies revealed a mild leukocytosis with WBCs 11.7. LFT elevation with T. bili 1.9, AST 167, ALT 354, and alkaline phosphatase 159. He also had a hyponatremia with a sodium 123, and potassium 3.7. Urinalysis was bland. Right upper quadrant ultrasound was obtained showing cholelithiasis with thickened gal lbladder wall. MRCP was subsequently obtained with cholelithiasis with gallbladder wall thickening and mild pericholecystic edema. Also associated with mild dilation of the CBD with a 3 mm obstructing stone. Emergency department physician reportedly discussed with general surgery at [facility], who stated that the patient should be transferred for ERCP as it could not be performed at that location. He was provided with Zosyn + fluids prior to transfer. Patient was subsequently transferred to [facility] where he is thus far been afebrile. His heart rate is 103, blood pressure is 160s over 70s. He had normal oxygen saturations on room air. Laboratory studies and results of imaging can be found in care everywhere. Past Medical History CAD chronic kidney disease abdominal aortic aneurysm Hypertension Hyperlipidemia Tobacco Use Disorder obesity Past Surgical History No past surgical history on file. Prior to Admission Medications None Med rec pending Physical Exam Temp: 97.9 ??F (36.6 ??C) Temp src: Oral BP: (!) 162/75 Pulse: 103 Resp: 18 SpO2: 93 % O2 Device: None (Room air) Height: 177.8 cm (5' 10) Weight: 106.5 kg (234 lb 12.8 oz) Estimated body mass index is 33.69 kg/m?? as calculated from the following: Height as of this encounter: 1.778 m (5' 10). Weight as of this encounter: 106.5 kg (234 lb 12.8 oz). General: Very pleasant male resting comfortably in hospital bed. Awake, alert, interactive. HEENT: Normocephalic, atraumatic. PERRL, EOMI. Conjunctiva clear, sclerae anicteric. Mucous membranes moist. Cardiac: Regular rate and rhythm without murmur, gallop, or rub. No peripheral edema. Respiratory: Normal work of breathing. Scant expiratory crackles in bases, most pronounced on left. GI: Normal, active bowel sounds. Tenderness and guarding to right upper quadrant. : Deferred. Musculoskeletal: Moving all extremities appropriately. Skin: No rashes or abrasions on exposed skin. Neurologic: Alert and oriented x4. Cranial nerves II through XII grossly intact. Psychologic: Appropriate mood and affect. Medical Decision Making 75 MINUTES SPENT BY ME on the date of service doing chart review, history, exam, documentation & further activities per the note. Data Imaging results reviewed over the past 24 hrs: No results found for this or any previous visit (from the past 24 hour(s)). documented in this encounter Consult Notes * Kneneth Mayen MD - 05/27/2024 10:15 AM CDTAssociated Order(s): SURGERY GENERAL IP CONSULT General Surgery Consultation Car Calvert Age: [age] year old Date of : 1950 Date of Admission: 05/25/2024 Reason for consult: Abdominal pain Requesting physician: Dr Rios Assessment and Plan: Assessment: #choledocholithiasis He underwent ERCP yesterday with stone extraction. We are planning on cholecystectomy today to prevent future gallstone related events. Plan: I have offered the patient a robotic assisted laparoscopic cholecystectomy, today. We have discussed the indication, alternatives, risks and expected recovery. Specifically we have discussed incisions, scarring, postoperative infections, anesthesia, bleeding, open conversion, common bile duct injury, injury to intra- abdominal organs, retained common bile duct stone, bile leak, DVT, PE, hernia, post cholecystectomy diarrhea, recovery, postoperative dietary restrictions and physical limitations. We have discussed the recommended interventions and treatments for these complications. All questions have been answered to the best of my ability. He elects to proceed with surgery. Chief Complaint: Abdominal pain History is obtained from the patient. History of Present Illness: Car Calvert is a 74 year old male who presented to [facility] ED two days ago with right upper quadrant abdominal pain. Work-up there including US and MRCP showed a 3 mm obstructing stone in the CBD. He underwent ERCP yesterday with stone extraction. Today, he is feeling well and denies significant abdominal pain. Past Medical History: HTN BPH HLD Past Surgical History: No abdominal surgical history Social History: Social History Tobacco Use Smoking status: Former Types: Cigarettes Start date: 2014 Quit date: 1966 Years since quittin.7 Smokeless tobacco: Not on file Substance Use Topics Alcohol use: Not on file Family History: History reviewed. No pertinent family history. Allergies: Allergies Allergen Reactions Lisinopril Medications: Current Facility-Administered Medications Medication Dose Route Frequency Provider Last Rate Last Admin [Auto Hold] albuterol (PROVENTIL) neb solution 2.5 mg 2.5 mg Nebulization Q2H PRN Dorita Thompson MD [Held by provider] amLODIPine (NORVASC) tablet 5 mg 5 mg Oral Daily Dorita Thompson MD [Auto Hold] calcium carbonate (TUMS) chewable tablet 1,000 mg 1,000 mg Oral 4x Daily PRN Sulaiman Wan MD ceFAZolin Sodium (ANCEF) injection 2 g 2 g Intravenous Pre-Op/Pre-procedure x 1 dose Leny Ace MD ceFAZolin Sodium (ANCEF) injection 2 g 2 g Intravenous See Admin Instructions Leny Ace MD [Auto Hold] famotidine (PEPCID) tablet 20 mg 20 mg Oral BID Dorita Thompson MD 20 mg at 05/26/242055 [Auto Hold] finasteride (PROSCAR) tablet 5 mg 5 mg Oral Daily Dorita Thompson MD 5 mg at 05/26/242055 [Auto Hold] hydrALAZINE (APRESOLINE) tablet 10 mg 10 mg Oral Q4H PRN Sulaiman Wan MD Or [Auto Hold] hydrALAZINE (APRESOLINE) injection 10 mg 10 mg Intravenous Q4H PRN Sulaiman Wan MD [Auto Hold] HYDROmorphone (DILAUDID) injection 0.2 mg 0.2 mg Intravenous Q2H PRN Sulaiman Wan MD [Auto Hold] HYDROmorphone (DILAUDID) injection 0.4 mg 0.4 mg Intravenous Q2H PRN Sulaiman Wan MD lactated ringers infusion Intravenous Continuous Shivam Norris MD lidocaine (LMX4) cream Topical Q1H PRN Shivam Norris MD [Auto Hold] lidocaine (LMX4) cream Topical Q1H PRN Sulaiman Wan MD lidocaine 1 % 0.1-1 mL 0.1-1 mL Other Q1H PRN Shivam Norris MD [Auto Hold] lidocaine 1 % 0.1-1 mL 0.1-1 mL Other Q1H PRN Sulaiman Wan MD [Auto Hold] metoprolol tartrate (LOPRESSOR) tablet 25 mg 25 mg Oral BID Dorita Thompson MD 25 mg at 05/26/242055 [Auto Hold] naloxone (NARCAN) injection 0.2 mg 0.2 mg Intravenous Q2 Min PRN Seth Rios MD Or [Auto Hold] naloxone (NARCAN) injection 0.4 mg 0.4 mg Intravenous Q2 Min PRN Seth Rios MD Or [Auto Hold] naloxone (NARCAN) injection 0.2 mg 0.2 mg Intramuscular Q2 Min PRN Seth Rios MD Or [Auto Hold] naloxone (NARCAN) injection 0.4 mg 0.4 mg Intramuscular Q2 Min PRN Seth Rios MD [Auto Hold] ondansetron (ZOFRAN ODT) ODT tab 4 mg 4 mg Oral Q6H PRN Jefferson Gama MD Or [Auto Hold] ondansetron (ZOFRAN) injection 4 mg 4 mg Intravenous Q6H PRN Jefferson Gama MD [Auto Hold] ondansetron (ZOFRAN ODT) ODT tab 4 mg 4 mg Oral Q6H PRN Sulaiman Wan MD Or [Auto Hold] ondansetron (ZOFRAN) injection 4 mg 4 mg Intravenous Q6H PRN Sulaiman Wan MD [Auto Hold] oxyCODONE (ROXICODONE) tablet 5 mg 5 mg Oral Q4H PRN uSlaiman Wan MD 5 mg at 05/27/24 0605 [Auto Hold] oxyCODONE IR (ROXICODONE) half-tab 2.5 mg 2.5 mg Oral Q4H PRN Sulaiman Wan MD 2.5 mg at 05/26/24 1641 [Auto Hold] piperacillin-tazobactam (ZOSYN) 3.375 g vial to attach to NS 100 mL bag 3.375 g Intravenous Q6H Sulaiman Wan MD 3.375 g at 05/27/24 0613 [Auto Hold] senna-docusate (SENOKOT-S/PERICOLACE) 8.6-50 MG per tablet 1 tablet 1 tablet Oral BID PRN Sulaiman Wan MD Or [Auto Hold] senna-docusate (SENOKOT-S/PERICOLACE) 8.6-50 MG per tablet 2 tablet 2 tablet Oral BID PRN Sulaiman Wan MD sodium chloride (PF) 0.9% PF flush 3 mL 3 mL Intracatheter Q8H Shivam Norris MD sodium chloride (PF) 0.9% PF flush 3 mL 3 mL Intracatheter q1 min prn Shivam Norris MD [Auto Hold] sodium chloride (PF) 0.9% PF flush 3 mL 3 mL Intracatheter Q8H Sulaiman Wan MD 3 mL at 05/26/24 0044 [Auto Hold] sodium chloride (PF) 0.9% PF flush 3 mL 3 mL Intracatheter q1 min prn Sulaiman Wan MD [Auto Hold] tamsulosin (FLOMAX) capsule 0.4 mg 0.4 mg Oral Daily Dorita Thompson MD 0.4 mg at 05/26/24 1641 [Held by provider] triamterene-HCTZ (MAXZIDE-25) 37.5-25 MG per tablet 1 tablet 1 tablet Oral QAM Dorita Thompson MD Current Facility-Administered Medications Medication Dose Route Frequency Provider Last Rate Last Admin [Held by provider] amLODIPine (NORVASC) tablet 5 mg 5 mg Oral Daily Dorita Thompson MD ceFAZolin Sodium (ANCEF) injection 2 g 2 g Intravenous Pre-Op/Pre-procedure x 1 dose Leny Ace MD ceFAZolin Sodium (ANCEF) injection 2 g 2 g Intravenous See Admin Instructions Leny Ace MD [Auto Hold] famotidine (PEPCID) tablet 20 mg 20 mg Oral BID Dorita Thompson MD 20 mg at 05/26/242055 [Auto Hold] finasteride (PROSCAR) tablet 5 mg 5 mg Oral Daily Dorita Thompson MD 5 mg at 05/26/242055 [Auto Hold] metoprolol tartrate (LOPRESSOR) tablet 25 mg 25 mg Oral BID Dorita Thompson MD 25 mg at 05/26/242055 [Auto Hold] piperacillin-tazobactam (ZOSYN) 3.375 g vial to attach to NS 100 mL bag 3.375 g Intravenous Q6H Sulaiman Wan MD 3.375 g at 05/27/24 0613 sodium chloride (PF) 0.9% PF flush 3 mL 3 mL Intracatheter Q8H Shivam Norris MD [Auto Hold] sodium chloride (PF) 0.9% PF flush 3 mL 3 mL Intracatheter Q8H Sulaiman Wan MD 3 mL at 05/26/24 0044 [Auto Hold] tamsulosin (FLOMAX) capsule 0.4 mg 0.4 mg Oral Daily Dorita Thompson MD 0.4 mg at 05/26/24 1641 [Held by provider] triamterene-HCTZ (MAXZIDE-25) 37.5-25 MG per tablet 1 tablet 1 tablet Oral Dorita Watkins MD Review of Systems: The 10 point review of systems is negative other than noted in the HPI. Physical Exam: BP 132/69 (BP Location: Left arm) Pulse 99 Temp 96.9 ??F (36.1 ??C) (Temporal) Resp 17 Ht 1.778 m (5' 10) Wt 106.5 kg (234 lb 12.8 oz) SpO2 98% BMI 33.69 kg/m?? General - Well developed, well nourished male in no apparent distress HEENT: no scleral icterus Lungs: normal effort on RA Heart: regular rate and rhythm Abdomen: soft, not distended, not tender Extremities: Warm without edema Neurologic: nonfocal Psychiatric: Mood and affect appropriate Skin: Without lesions, rashes, or jaundice Data: WBC - Lab Results Component Value Date WBC 10.1 05/27/2024 HgB - Lab Results Component Value Date HGB 12.3 (L) 05/27/2024 Plt- Lab Results Component Value Date PLT 142 (L) 05/27/2024 Liver Function Studies - Recent Labs Lab Test 05/27/24 0625 PROTTOTAL 6.2* ALBUMIN 3.5 BILITOTAL 2.7* ALKPHOS 292* AST 315* ALT 297* Lipase- Lab Results Component Value Date LIPASE 63 (H) 05/27/2024 Imaging: US and MRCP from outside hospital reviewed by me showing gallstones and common duct stone. ERCP imagines from yesterday also reviewed by me. Kenneth Mayen MD * Dannie Simmons MD - 05/26/2024 5:08 PM CDTAssociated Order(s): NEPHROLOGY IP CONSULT [facility] Nephrology Consultation Date of Admission: 05/25/2024 Assessment & Plan Car Calvert is a 74 year old male with PMH ILD, HTN, HLD, obesity who was admitted on 05/25/2024 with choledocholithiasis and acute cholecystitis. Assessment: Hyponatremia Na 126 on admission (prior to transfer was 123), worsened to 121 after IVF. Received IVF throughouttoday, but Na stable at 122. Pt asymptomatic. On presentation hypovolemic in presentation, also with n/v which could cause high ADH state. Urine studies pending. - continue NS at current rate, finish current bag - q6h Na checks - goal Na in AM 127-129 - If Na drops further, stop NS, start fluid restriction 1.5L (difficult when diet is clear liquid),start salt tabs 2 g TID - if Na <118, call nephrology for hypertonic saline Mild CKD Baseline Cr appears to be 1.1-1.2, eGFR 55-60. At current baseline. Choledocolithiasis Acute cholecystitis Fevers, abd pain, n/v, elevated LFTs, RUQ notable for thick gallbladder wall. MRCP with 3 mm obstructing stone in CBD. Had ERCP 05/26. On empiric abx. Reviewed notes from Dr. Thompson/Sulaiman Wan (hospitalist), Dr. Gama (GI). Dannie Simmons MD [facility] Consult[facility] - Nephrology [phone] Reason for Consult I was asked to see the patient for hyponatremia . Primary Care Physician Dustin Victor Chief Complaint Abd pain, n/v History is obtained from the patient and chart review. History of Present Illness Car Calvert is a 74 year old male who presents with abd pain, n/v, poor PO intake, fevers. RUQ with thickened GB wall, MRCP with obstructing 3mm CBD stone. Transferred to [facility] for ERCP and further treatment. Given zosyn and fluids prior to transfer. Na prior to transfer 123. Pt seen in PACU, slightly groggy but coherent. Reports feeling much better since ERCP, no abd pain.No n/v. No SOB. No other complaints or concerns. Reports days of poor PO intake, but was drinking lots of water to stay hydrated. Also in general eats a low salt diet per recommendtion. Past Medical History I have reviewed this patient's medical history and updated it with pertinent information if needed. No past medical history on file. Past Surgical History I have reviewed this patient's surgical history and updated it with pertinent information if needed. No past surgical history on file. Prior to Admission Medications Prior to Admission Medications Prescriptions Last Dose Informant Patient Reported? Taking? ASPIRIN LOW DOSE 81 MG EC tablet 05/23/2024 Yes Yes Sig: Take 81 mg by mouth daily. [place]-3 Fatty Acids (FISH OIL) 1200 MG capsule 05/23/2024 Yes Yes Sig: Take 1,200 mg by mouth daily. amLODIPine (NORVASC) 5 MG tablet 05/23/2024 Yes Yes Sig: Take 5 mg by mouth daily. atorvastatin (LIPITOR) 40 MG tablet 05/23/2024 Yes Yes Sig: Take 40 mg by mouth daily. diclofenac (VOLTAREN) 1 % topical gel 05/23/2024 Yes Yes Sig: Apply 4 g topically 4 times daily as needed for moderate pain. famotidine (PEPCID) 20 MG tablet 05/25/2024 Yes Yes Sig: Take 20 mg by mouth 2 times daily. finasteride (PROSCAR) 5 MG tablet 05/23/2024 Yes Yes Sig: Take 5 mg by mouth daily. metoprolol tartrate (LOPRESSOR) 25 MG tablet 05/23/2024 Yes Yes Sig: Take 25 mg by mouth 2 times daily. multivitamin w/minerals (THERA-VIT-M) tablet 05/23/2024 Yes Yes Sig: Take 1 tablet by mouth daily. polyvinyl alcohol (LIQUIFILM TEARS) 1.4 % ophthalmic solution 05/23/2024 Yes Yes Sig: Apply 2 drops to eye every 2 hours as needed for dry eyes. tamsulosin (FLOMAX) 0.4 MG capsule 05/23/2024 Yes Yes Sig: Take 0.4 mg by mouth daily. triamterene-HCTZ (MAXZIDE-25) 37.5-25 MG tablet 05/23/2024 Yes Yes Sig: Take 1 tablet by mouth every morning. Facility-Administered Medications: None Allergies Allergies Allergen Reactions Lisinopril Social History I have reviewed this patient's social history and updated it with pertinent information if needed. Car Calvert Family History I have reviewed this patient's family history and updated it with pertinent information if needed. No family history on file. Review of Systems The 10 point Review of Systems is negative other than noted in the HPI. Physical Exam Temp: 97.7 ??F (36.5 ??C) Temp src: Oral BP: (!) 152/78 Pulse: 83 Resp: 25 SpO2: 95 % O2 Device: None (Room air) Vital Signs with Ranges Temp: [97.7 ??F (36.5 ??C)-98.2 ??F (36.8 ??C)] 97.7 ??F (36.5 ??C) Pulse: [83-109] 83 Resp: [16-25] 25 BP: (114-162)/(70-87) 152/78 SpO2: [93 %-100 %] 95 % 234 lbs 12.8 oz GENERAL: NAD HEENT: Normocephalic. Dry MM CV: RRR, no murmurs RESP: Clear on left, slight wheeze to R anterior lung GI: Abdomen soft, nontender MUSCULOSKELETAL: no LE edema NEURO: Alert, oriented, normal speech PSYCH: mood good, affect appropriate Data BMP Recent Labs Lab 05/26/24 1226 05/26/24 1204 05/26/24 0649 05/26/24 0023 NA -- 122* 121* 126* POTASSIUM -- 3.3* 3.1* -- CHLORIDE -- -- 87* -- EMMA -- -- 8.5* -- CO2 -- -- 19* -- BUN -- -- 19.1 -- CR -- -- 1.22* -- GLC 124* -- 124* -- Phos@LABRCNTIPR(phos:4) CBC) Recent Labs Lab 05/26/24 0649 WBC 9.7 HGB 12.5* HCT 36.6* MCV 89 PLT 123* Recent Labs Lab 05/26/24 0649 AST 90* ALT 208* ALKPHOS 166* BILITOTAL 1.2 Recent Labs Lab 05/26/24 0947 INR 1.10 No results found for: D2VIT, D3VIT, DTOT Recent Labs Lab 05/26/24 0649 HGB 12.5* HCT 36.6* MCV 89 No results for input(s): PTHI in the last 168 hours. No results found for: COLOR, APPEARANCE, URINEGLC, URINEBILI, URINEKETONE, SG, URINEPH, PROTEIN, UROBILINOGEN, NITRITE, LEUKEST Dannie Simmons MD [facility] - Nephrology [phone] * Jefferson Gama MD - 05/26/2024 9:11 AM CDTAssociated Order(s): GASTROENTEROLOGY IP CONSULT Images from the original note were not included. GASTROENTEROLOGY CONSULTATION Car Calvert [id number] [facility] [id number] 74 year old male Admission Date/Time: 05/25/2024 Primary Care Provider: Dustin Victor Referring / Attending Physician: Dr. Wan We were asked to see the patient in consultation by Dr. Wan for evaluation of choledocholithiasis. HPI: Car Calvert is a 74 year old male with medical history of hypertension, hyperlipidemia, kidney stones, interstitial lung disease, who was transferred from [facility] with acute abdominal pain found to have MRCP evidence of cholelithiasis, and choledocholithiasis. Patient reports onset of right upper quadrant abdominal pain about 2 days ago. The pain became progressively worse he describes a bandlike distribution across his upper abdomen. The pain did radiate to his mid back. He did have a temperature of 101 with chills. He was nauseated but did not throw up. He had very little appetite. No previous abdominal surgeries. He was told that he had stones in his gallbladder years ago. Abdominal ultrasound at the outside hospital showing cholelithiasis with thickened gallbladder wall. MRCP with cholelithiasis, gallbladder wall thickening, mild pericholecystic edema, mild dilation of the CBD with a 3 mm obstructing stone. Total bili was 1.9, AST 167, ALT 354, alkaline phosphatase 159. White count was 11.7. He was started on empiric antibiotics. PAST MEDICAL HISTORY: Patient Active Problem List Diagnosis Date Noted Choledocholithiasis with obstruction 05/25/2024 Priority: Medium ROS: A comprehensive ten point review of systems was negative aside from those in mentioned in the HPI. MEDICATIONS: Prior to Admission medications Medication Sig Start Date End Date Taking? Authorizing Provider amLODIPine (NORVASC) 5 MG tablet Take 5 mg by mouth daily. 02/05/23 Yes Unknown, Entered By History ASPIRIN LOW DOSE 81 MG EC tablet Take 81 mg by mouth daily. 03/07/24 Yes Unknown, Entered By History atorvastatin (LIPITOR) 40 MG tablet Take 40 mg by mouth daily. 02/05/23 Yes Unknown, Entered By History diclofenac (VOLTAREN) 1 % topical gel Apply 4 g topically 4 times daily as needed for moderate pain. 09/03/23 Yes Unknown, Entered By History famotidine (PEPCID) 20 MG tablet Take 20 mg by mouth 2 times daily. Yes Unknown, Entered By History finasteride (PROSCAR) 5 MG tablet Take 5 mg by mouth daily. 02/18/24 Yes Unknown, Entered By History metoprolol tartrate (LOPRESSOR) 25 MG tablet Take 25 mg by mouth 2 times daily. 07/13/23 Yes Unknown, Entered By History multivitamin w/minerals (THERA-VIT-M) tablet Take 1 tablet by mouth daily. 01/11/24 Yes Unknown, Entered By History [place]-3 Fatty Acids (FISH OIL) 1200 MG capsule Take 1,200 mg by mouth daily. 02/05/23 Yes Unknown, Entered By History polyvinyl alcohol (LIQUIFILM TEARS) 1.4 % ophthalmic solution Apply 2 drops to eye every 2 hours asneeded for dry eyes. 03/02/24 Yes Unknown, Entered By History tamsulosin (FLOMAX) 0.4 MG capsule Take 0.4 mg by mouth daily. 02/18/24 Yes Unknown, Entered By History triamterene-HCTZ (MAXZIDE-25) 37.5-25 MG tablet Take 1 tablet by mouth every morning. 05/17/24 Yes Unknown, Entered By History ALLERGIES: Allergies Allergen Reactions Lisinopril SOCIAL HISTORY: No history of cigarette smoking. He does not drink alcohol heavily. FAMILY HISTORY: Noncontributory PHYSICAL EXAM: BP 135/77 (BP Location: Left arm) Pulse 109 Temp 98.2 ??F (36.8 ??C) (Oral) Resp 16 Ht 1.778 m (5' 10) Wt 106.5 kg (234 lb 12.8 oz) SpO2 95% BMI 33.69 kg/m?? PHYSICAL EXAM: GENERAL: No acute distress SKIN: no suspicious lesions, rashes, jaundice HEAD: Normocephalic. Atraumatic. NECK: Neck supple. No adenopathy. EYES: No scleral icterus GASTROINTESTINAL: soft, non tender, non distended, no guarding/rebound JOINT/EXTREMITIES: no gross deformities noted, normal muscle tone NEURO: CN 2-12 grossly intact, no focal deficits PSYCH: Normal affect ADDITIONAL COMMENTS: I reviewed the patient's new clinical lab test results. Recent Labs Lab 05/26/24 0649 WBC 9.7 RBC 4.12* HGB 12.5* HCT 36.6* MCV 89 MCH 30.3 MCHC 34.2 RDW 13.5 PLT 123* Recent Labs Lab Test 05/26/24 0649 POTASSIUM 3.1* CHLORIDE 87* CO2 19* BUN 19.1 ANIONGAP 15 Recent Labs Lab Test 05/26/24 0649 ALBUMIN 3.4* BILITOTAL 1.2 ALT 208* AST 90* IMAGING / ENDOSCOPY [facility] per report. I am unable to view these currently. CONSULTATION ASSESSMENT AND PLAN: Car Calvert is a 74 year old with medical history of hypertension, hyperlipidemia, kidney stones, interstitial lung disease, who was transferred from [facility] with acute abdominal pain found to have MRCP evidence of cholelithiasis, and choledocholithiasis. 1. Choledocholithiasis: As evidenced on MRCP with a 3 mm stone in the CBD. He is currently afebrile. LFTs have mildly improved. He continues on antibiotics. Abdominal pain is improving. Plan for ERCPthis afternoon here at [facility]. General surgery consult for discussion of cholecystectomy in the future. No previous abdominal surgeries. -- Follow LFTs, INR pending -- N.p.o., IV fluids -- Further recommendations following ERCP -- General Surgery consult I discussed the patient plan with Drs. Mclean and Natan, GI staff physician. Thank you for asking us to participate in the care of this patient. 70 min of total time was spent providing patient care, including patient evaluation, reviewing documentation/ test results, and clerical order filler. Chelita Flynn PA-C [facility] ( [facility]) [facility] note Patient seen and examined. Chart reviewed. Case discussed with BRADFORD Ford. 74-year-old gentleman who has been having intermittent abdominal pain since Thursday. Presented to outside facility. Found to have 3 mm stone in his common bile duct on MRCP. Continues to have some abdominal discomfort and pressure. Also describes some nausea. Plan will be for ERCP today. He should also be evaluated by surgery for cholecystectomy. Jefferson Gama MD [facility] 20 minutes spent documented in this encounter Miscellaneous Notes * Plan of Care - Blayne Montanez RN - 05/28/2024 6:17 AM CDT For vital signs and complete assessments, please see documentation flowsheets. [id number] Pertinent assessments: Pt A&Ox4. On RA. Afebrile. Elevated BP, other VSS. Denies pain,nausea & SOB. PIV saline locked. Major Shift Events: none Treatment Plan: Symptom management. Monitor electrolytes. Discharge TBD. Bedside Nurse: Blayne Montanez RN Problem: Adult Inpatient Plan of Care Goal: Plan of Care Review Description: The Plan of Care Review/Shift note should be completed every shift. The Outcome Evaluation is a brief statement about your assessment that the patient is improving, declining, or no change. This information will be displayed automatically on your shift note. Outcome: Progressing Flowsheets (Taken 05/28/2024 0616) Outcome Evaluation: Denies pain PIV saline locked On RA. Elevated BP other VSS. Plan of Care Reviewed With: patient Overall Patient Progress: improving Goal: Patient-Specific Goal (Individualized) Description: You can add care plan individualizations to a care plan. Examples of Individualizationmight be: Parent requests to be called daily at 9am for status, I have a hard time hearing out of my right ear, or Do not touch me to wake me up as it startles me. Outcome: Progressing Goal: Absence of Hospital-Acquired Illness or Injury Outcome: Progressing Intervention: Identify and Manage Fall Risk Recent Flowsheet Documentation Taken 05/28/2024 0133 by Blayne Montanez, RN Safety Promotion/Fall Prevention: nonskid shoes/slippers when out of bed patient and family education safety round/check completed treat reversible contributory factors Intervention: Prevent Skin Injury Recent Flowsheet Documentation Taken 05/28/2024132 by Blayne Montanez RN Body Position: position changed independently Intervention: Prevent Infection Recent Flowsheet Documentation Taken 05/28/2024132 by Blayne Montanez RN Infection Prevention: cohorting utilized hand hygiene promoted rest/sleep promoted single patient room provided Goal: Optimal Comfort and Wellbeing Outcome: Progressing Goal: Readiness for Transition of Care Outcome: Progressing Problem: Pain Acute Goal: Optimal Pain Control and Function Outcome: Progressing Intervention: Prevent or Manage Pain Recent Flowsheet Documentation Taken 05/28/2024132 by Blayne Montanez cabinet mounter Review/Management: medications reviewed Goal Outcome Evaluation: Plan of Care Reviewed With: patient Overall Patient Progress: improvingOverall Patient Progress: improving Outcome Evaluation: Denies pain PIV saline locked On RA. Elevated BP other VSS. * Plan of Care - Yunior Canales RN - 05/27/2024 10:56 PM CDT Pertinent assessments: POD #0 from laparoscopic cholecystectomy. POD #1 from ERCP. A&Ox4. Afebrile. On room air. Saline locked PIV. Tolerating a regular diet. Up ad leslie. Voiding spontaneously. Major Shift Events: Na: 125. Advanced to regular diet. Treatment Plan: Regular diet, trend Na level, and discharge pending. Bedside Nurse: Yunior Canales RN Problem: Adult Inpatient Plan of Care Goal: Plan of Care Review Description: The Plan of Care Review/Shift note should be completed every shift. The Outcome Evaluation is a brief statement about your assessment that the patient is improving, declining, or no change. This information will be displayed automatically on your shift note. Outcome: Progressing Flowsheets (Taken 05/27/2024 5920) Outcome Evaluation: Discharge pending. Plan of Care Reviewed With: patient Overall Patient Progress: improving Goal: Patient-Specific Goal (Individualized) Description: You can add care plan individualizations to a care plan. Examples of Individualizationmight be: Parent requests to be called daily at 9am for status, I have a hard time hearing out of my right ear, or Do not touch me to wake me up as it startles me. Outcome: Progressing Goal: Absence of Hospital-Acquired Illness or Injury Outcome: Progressing Intervention: Identify and Manage Fall Risk Recent Flowsheet Documentation Taken 05/27/2024 160 by Yunior Canales RN Safety Promotion/Fall Prevention: nonskid shoes/slippers when out of bed patient and family education safety round/check completed treat reversible contributory factors Intervention: Prevent Skin Injury Recent Flowsheet Documentation Taken 05/27/2024 160 by Yunior Canales RN Body Position: position changed independently Intervention: Prevent and Manage VTE (Venous Thromboembolism) Risk Recent Flowsheet Documentation Taken 05/27/2024 1607 by Yunior Canales RN VTE Prevention/Management: SCDs off (sequential compression devices) Intervention: Prevent Infection Recent Flowsheet Documentation Taken 05/27/2024 160 by Yunior Canales RN Infection Prevention: cohorting utilized hand hygiene promoted rest/sleep promoted single patient room provided Goal: Optimal Comfort and Wellbeing Outcome: Progressing Goal: Readiness for Transition of Care Outcome: Progressing Goal Outcome Evaluation: Plan of Care Reviewed With: patient Overall Patient Progress: improving Overall Patient Progress: improving Outcome Evaluation: Discharge pending. * Plan of Care - Stone Hall RN - 05/27/2024 4:00 PM CDT Goal Outcome Evaluation: Plan of Care Reviewed With: patient Overall Patient Progress: improving Overall Patient Progress: improving Outcome Evaluation: up to floor at 1430. denies pain, nausea. voiding adequately. To Do: End of Shift Summary For vital signs and complete assessments, please see documentation flowsheets. Pertinent assessments: Assumed care of pt from [id number]. POD #1 from ERCP, POD #0 from lap anat. 4 lap sites covered with steri-strips CDI, ice applied. Denied pain and nausea upon arrival to unit.Hypertensive post procedure, otherwise VSS. Afebrile. Pepcid given per pt request. Clear liquid diet, ADAT. Bruising and redness to back of L upper arm - from BP cuff per pt. Up to BR SBA. Voided x2 since arrival. Major Shift Events: back from lap anat at 1430 Treatment Plan: Trend and monitor Na level, pain management Bedside Nurse: Stone Hall RN Problem: Adult Inpatient Plan of Care Goal: Plan of Care Review Description: The Plan of Care Review/Shift note should be completed every shift. The Outcome Evaluation is a brief statement about your assessment that the patient is improving, declining, or no change. This information will be displayed automatically on your shift note. Outcome: Progressing Flowsheets (Taken 05/27/2024 1600) Outcome Evaluation: up to floor at 1430. denies pain, nausea. voiding adequately. Plan of Care Reviewed With: patient Overall Patient Progress: improving Goal: Patient-Specific Goal (Individualized) Description: You can add care plan individualizations to a care plan. Examples of Individualizationmight be: Parent requests to be called daily at 9am for status, I have a hard time hearing out of my right ear, or Do not touch me to wake me up as it startles me. Outcome: Progressing Goal: Absence of Hospital-Acquired Illness or Injury Outcome: Progressing Intervention: Identify and Manage Fall Risk Recent Flowsheet Documentation Taken 05/27/2024 1450 by Stone Hall RN Safety Promotion/Fall Prevention: safety round/check completed activity supervised clutter free environment maintained increased rounding and observation increase visualization of patient nonskid shoes/slippers when out of bed patient and family education room near nurse's station Intervention: Prevent Skin Injury Recent Flowsheet Documentation Taken 05/27/2024 1450 by Stone Hall RN Body Position: position changed independently supine Skin Protection: adhesive use limited incontinence pads utilized Device Skin Pressure Protection: absorbent pad utilized/changed tubing/devices free from skin contact Intervention: Prevent and Manage VTE (Venous Thromboembolism) Risk Recent Flowsheet Documentation Taken 05/27/2024 1450 by Stone Hall RN VTE Prevention/Management: SCDs on (sequential compression devices) Goal: Optimal Comfort and Wellbeing Outcome: Progressing Goal: Readiness for Transition of Care Outcome: Progressing Problem: Pain Acute Goal: Optimal Pain Control and Function Outcome: Progressing Intervention: Prevent or Manage Pain Recent Flowsheet Documentation Taken 05/27/2024 1450 by Stone Hall RN Medication Review/Management: medications reviewed * Brief Op Note - Kenneth Mayen MD - 05/27/2024 12:37 PM CDT [facility] Brief Operative Note Pre-operative diagnosis: Cholecystitis [K81.9] Post-operative diagnosis Same as pre-operative diagnosis Procedure: Davinci Robot-Assisted Laparoscopic Cholecystectomy, N/A - Abdomen Surgeon: Surgeons and Role: * Kenneth Mayen MD - Primary * Barb Osorio PA-C - Assisting Anesthesia: General Estimated Blood Loss: 20 ml Drains: None Specimens: ID Type Source Tests Collected by Time Destination 1 : GALLBLADDER AND CONTENTS Tissue Gallbladder SURGICAL PATHOLOGY EXAM Kenneth Mayen MD 05/27/2024 12:26 PM Findings: Chronically inflamed and contracted gallbladder . Complications: None. Implants: * No implants in log * * Op Note - Kenneth Mayen MD - 05/27/2024 10:41 AM CDT [facility] General Surgery Operative Note Pre-operative diagnosis: choledocholithiasis Post-operative diagnosis: same Procedure: laparoscopic cholecystectomy with modifer 22 - approximately 1 hour of additional time to complete the case due to a chronically inflamed, scarred, and contracted gallbladder Surgeon: Kenneth Mayen MD Sprinkler Irrigation Equipment Mechanic(s): Barb Osorio PA-C The Physician Sprinkler Irrigation Equipment Mechanic was medically necessary for their expertise in prepping, robotic instrumentexchange, passing of material through port sites, closure of port sites, suturing and retraction. Anesthesia: general Estimated blood loss: Specimen: 20 cc gallbladder and contents INDICATION FOR OPERATION: This is a 74 year old male admitted with choledocholithiasis who underwent ERCP yesterday. He is now ready to undergo cholecystectomy to prevent future gallstone related events. He agreed to proceed to surgery after a discussion of the risks and benefits. DESCRIPTION OF PROCEDURE: The patient was taken to the operating room and placed on the table in supine position. General endotracheal anesthesia was induced and the abdomen was prepped and draped instandard sterile fashion. Access was gained in the left upper quadrant at [place] point with a 5mm 0 degree laparscopic with a visiport robotic trocar under direct visualization. The abdomen was insufflated with CO2. Three additional 8mm robotic ports were placed across the mid-abdomen. The patient was placed in reverse Trendelenburg and right side up. The robot was then docked. The fundus of the gallbladder was grasped and retracted cephalad with a prograsp. The gallbladder appeared chronically inflamed. The gallbladder was quite contracted and the overlying peritoneum was very thick and scarred. The infundibulum was grasped and retracted laterally. The peritoneum over the medial and lateral aspects of the triangle of Calot was taken down with blunt dissection and cautery. The cystic duct and artery were freed up from surrounding tissues. The triangle of Calot was skeletonized revealing the critical view of safety. Intraoperative fluorescence was used to evaluate the biliary anatomy with no additional biliary structures lighting up other than the cystic duct and common bile duct. The cystic artery was clipped and divided. However, the cystic duct appeared quite dilated. I decided to take the gallbladder off the liver bed completely by dome down technique to ensure no other structures returning to the liver. Once the gallbladder was freed from the liver bed it was very clear that there were no other structures returning to the liver and this was the cystic duct. The duct was the clipped and divided with two clips left on the stay side. A small hole in theliver was made during the dome down dissection was inherent to the procedure. Bleeding was controlled with cautery and pressure. A sheet of Nu-knit was placed over the liver bed for additional hemostasis. Additionally a small hole was made in the gallbladder during the dissection with leakage of a small amount of bile and purulent fluid. This dissection took 1 hour of additional time then otherwise would be expected to given the complex anatomy due to chronic inflammation and scarring. The gallbladder was passed into an Endocatch bag in the left upper quadrant port site. The endocatch bag wasremoved from the abdomen and the fascial defect closed with a 3-0 V-lock suture. The abdomen was irrigated and the small amount of bile was suctioned out. The liver was viewed again and was hemostatic. The robot was undocked, the robotic ports were removed and were hemostatic, and the pneumoperitoneum evacuated. All of the incisions were closed with interrupted 4- 0 Vicryl subcuticular sutures andSteri-Strips. The patient tolerated the procedure well. Sponge and instrument counts were correct. FINDINGS: 1.) chronically inflamed and contracted gallbladder. The gallbladder itself contained a small amount of purulent fluid as well which was suctioned out. Kenneth Mayen MD * Plan of Care - Tristan Bourgeois RN - 05/27/2024 6:17 AM CDT Goal Outcome Evaluation: Plan of Care Reviewed With: patient Overall Patient Progress: improvingOverall Patient Progress: improving Outcome Evaluation: NPO midnight for cholecystectomy scheduled today. To Do: End of Shift Summary For vital signs and complete assessments, please see documentation flowsheets. Pertinent assessments: Assumed care @ [id number]. POD #01 from ERCP. Pain controlled with oxycodone,given x 1. denies nausea and SOB. Afebrile, VSS. A&Ox4. Afebrile. On room air. IV fluids infusing. Tolerating clear liquids. Telemetry Major Shift Events: NPO midnight. Treatment Plan: NPO at MO, cholecystectomy with Gen Surg, IV fluids, trend Na level, IV Zosyn, telemetry, and discharge pending. Bedside Nurse: Tristan Bourgeois RN Problem: Adult Inpatient Plan of Care Goal: Plan of Care Review Description: The Plan of Care Review/Shift note should be completed every shift. The Outcome Evaluation is a brief statement about your assessment that the patient is improving, declining, or no change. This information will be displayed automatically on your shift note. Outcome: Progressing Flowsheets (Taken 05/27/2024615) Outcome Evaluation: NPO midnight for cholecystectomy scheduled today. Plan of Care Reviewed With: patient Overall Patient Progress: improving Goal: Patient-Specific Goal (Individualized) Description: You can add care plan individualizations to a care plan. Examples of Individualizationmight be: Parent requests to be called daily at 9am for status, I have a hard time hearing out of my right ear, or Do not touch me to wake me up as it startles me. Outcome: Progressing Goal: Absence of Hospital-Acquired Illness or Injury Outcome: Progressing Intervention: Identify and Manage Fall Risk Recent Flowsheet Documentation Taken 05/27/2024228 by Tristan Bourgeois RN Safety Promotion/Fall Prevention: safety round/check completed Intervention: Prevent Skin Injury Recent Flowsheet Documentation Taken 05/27/2024228 by Tristan Bourgeois RN Body Position: position changed independently Skin Protection: adhesive use limited incontinence pads utilized Device Skin Pressure Protection: absorbent pad utilized/changed Intervention: Prevent and Manage VTE (Venous Thromboembolism) Risk Recent Flowsheet Documentation Taken 05/27/2024228 by Tristan Bourgeois RN VTE Prevention/Management: SCDs off (sequential compression devices) Intervention: Prevent Infection Recent Flowsheet Documentation Taken 05/27/2024228 by Tristan Bourgeois RN Infection Prevention: cohorting utilized hand hygiene promoted rest/sleep promoted single patient room provided Goal: Optimal Comfort and Wellbeing Outcome: Progressing Intervention: Monitor Pain and Promote Comfort Recent Flowsheet Documentation Taken 05/27/2024207 by Tristan Bourgeois RN Pain Management Interventions: medication (see MAR) Goal: Readiness for Transition of Care Outcome: Progressing Problem: Pain Acute Goal: Optimal Pain Control and Function Outcome: Progressing Intervention: Develop Pain Management Plan Recent Flowsheet Documentation Taken 05/27/2024207 by Tristan Bourgeois RN Pain Management Interventions: medication (see MAR) Intervention: Prevent or Manage Pain Recent Flowsheet Documentation Taken 05/27/2024228 by Tristan Bourgeois RN Sensory Stimulation Regulation: care clustered lighting decreased Sleep/Rest Enhancement: awakenings minimized consistent schedule promoted noise level reduced regular sleep/rest pattern promoted room darkened Medication Review/Management: medications reviewed Intervention: Optimize Psychosocial Wellbeing Recent Flowsheet Documentation Taken 05/27/2024228 by Tristan Bourgeois RN Supportive Measures: active listening utilized decision-making supported problem-solving facilitated self-care encouraged verbalization of feelings encouraged * Plan of Care - Yunior Canales RN - 05/26/2024 10:49 PM CDT Pertinent assessments: POD #0 from ERCP. Pt refusing capno monitoring after 2100. A&Ox4. Afebrile. On room air. IV fluids to PIV. Tolerating clear liquids. Telemetry - ST. Up with SBA and gait belt. Voiding spontaneously. Last BM following return to MS[facility]. Major Shift Events: Return to MS[facility] following ERCP procedure. PRN oxycodone given x1 for pain. IV fluids changed to NS by provider. Na: 123. Advanced to clear liquids. Treatment Plan: NPO at [place], cholecystectomy with Gen Surg, IV fluids, trend Na level, IV Zosyn, telemetry, and discharge pending. Bedside Nurse: Yunior Canales RN Problem: Adult Inpatient Plan of Care Goal: Plan of Care Review Description: The Plan of Care Review/Shift note should be completed every shift. The Outcome Evaluation is a brief statement about your assessment that the patient is improving, declining, or no change. This information will be displayed automatically on your shift note. Outcome: Progressing Flowsheets (Taken 05/26/2024 3582) Outcome Evaluation: Probable cholecystectomy with Gen Surg on 05/27. Plan of Care Reviewed With: patient spouse Overall Patient Progress: improving Goal: Patient-Specific Goal (Individualized) Description: You can add care plan individualizations to a care plan. Examples of Individualizationmight be: Parent requests to be called daily at 9am for status, I have a hard time hearing out of my right ear, or Do not touch me to wake me up as it startles me. Outcome: Progressing Goal: Absence of Hospital-Acquired Illness or Injury Outcome: Progressing Intervention: Identify and Manage Fall Risk Recent Flowsheet Documentation Taken 05/26/20241640 by Yunior Canales RN Safety Promotion/Fall Prevention: activity supervised clutter free environment maintained increase visualization of patient lighting adjusted nonskid shoes/slippers when out of bed patient and family education room near nurse's station safety round/check completed supervised activity treat reversible contributory factors Intervention: Prevent Skin Injury Recent Flowsheet Documentation Taken 05/26/20241640 by Yunior Canales RN Body Position: position changed independently Intervention: Prevent and Manage VTE (Venous Thromboembolism) Risk Recent Flowsheet Documentation Taken 05/26/2024 164 by Yunior Canales RN VTE Prevention/Management: SCDs off (sequential compression devices) Intervention: Prevent Infection Recent Flowsheet Documentation Taken 05/26/20241640 by Yunior Canales RN Infection Prevention: cohorting utilized hand hygiene promoted rest/sleep promoted single patient room provided Goal: Optimal Comfort and Wellbeing Outcome: Progressing Intervention: Monitor Pain and Promote Comfort Recent Flowsheet Documentation Taken 05/26/20241640 by Yunior Canales RN Pain Management Interventions: medication (see MAR) Goal: Readiness for Transition of Care Outcome: Progressing Goal Outcome Evaluation: Plan of Care Reviewed With: patient, spouse Overall Patient Progress: improving Overall Patient Progress: improving Outcome Evaluation: Probable cholecystectomy with Gen Surg on 05/27. * Plan of Care - Linda Walters RN - 05/26/2024 1:00 PM CDT Pertinent assessments: A&O, up sba w/ iv pole. Endorsed headache, no abd pain or nausea. Incontof bowel and bladder, not at baseline. Lr running at 75ml/hr. NPO Major Shift Events: Incontinent of stool numerous times. Treatment Plan: ERCP Bedside Nurse: Linda Walters RN Problem: Adult Inpatient Plan of Care Goal: Plan of Care Review Description: The Plan of Care Review/Shift note should be completed every shift. The Outcome Evaluation is a brief statement about your assessment that the patient is improving, declining, or no change. This information will be displayed automatically on your shift note. Flowsheets (Taken 05/26/2024 1211) Plan of Care Reviewed With: patient Overall Patient Progress: improving Goal: Absence of Hospital-Acquired Illness or Injury Intervention: Identify and Manage Fall Risk Recent Flowsheet Documentation Taken 05/26/2024 1000 by Linda Walters RN Safety Promotion/Fall Prevention: activity supervised increased rounding and observation increase visualization of patient room near nurse's station Intervention: Prevent and Manage VTE (Venous Thromboembolism) Risk Recent Flowsheet Documentation Taken 05/26/2024 1000 by Linda Walters RN VTE Prevention/Management: SCDs off (sequential compression devices) Intervention: Prevent Infection Recent Flowsheet Documentation Taken 05/26/2024 1000 by Linda Walters RN Infection Prevention: rest/sleep promoted Problem: Pain Acute Goal: Optimal Pain Control and Function Intervention: Prevent or Manage Pain Recent Flowsheet Documentation Taken 05/26/2024 1000 by Linda Walters RN Medication Review/Management: medications reviewed Goal Outcome Evaluation: Plan of Care Reviewed With: patient Overall Patient Progress: improvingOverall Patient Progress: improving * Pharmacy-Admission Medication History - Moses Carson RPH - 05/26/2024 8:48 AM CDT Pharmacist Admission Medication History Admission medication history is complete. The information provided in this note is only as accurateas the sources available at the time of the update. Information Source(s): Patient and CareEverywhere/SureScripts via in-person Changes made to [facility] medication list: Added: All Deleted: None Changed: None Allergies reviewed with patient and updates made in EHR: yes Medication History Completed By: Moses Carson RPH 05/26/2024 8:48 AM [facility] Med List Medication Sig Last Dose amLODIPine (NORVASC) 5 MG tablet Take 5 mg by mouth daily. 05/23/2024 ASPIRIN LOW DOSE 81 MG EC tablet Take 81 mg by mouth daily. 05/23/2024 atorvastatin (LIPITOR) 40 MG tablet Take 40 mg by mouth daily. 05/23/2024 diclofenac (VOLTAREN) 1 % topical gel Apply 4 g topically 4 times daily as needed for moderate pain. 05/23/2024 famotidine (PEPCID) 20 MG tablet Take 20 mg by mouth 2 times daily. 05/25/2024 finasteride (PROSCAR) 5 MG tablet Take 5 mg by mouth daily. 05/23/2024 metoprolol tartrate (LOPRESSOR) 25 MG tablet Take 25 mg by mouth 2 times daily. 05/23/2024 multivitamin w/minerals (THERA-VIT-M) tablet Take 1 tablet by mouth daily. 05/23/2024 [place]-3 Fatty Acids (FISH OIL) 1200 MG capsule Take 1,200 mg by mouth daily. 05/23/2024 polyvinyl alcohol (LIQUIFILM TEARS) 1.4 % ophthalmic solution Apply 2 drops to eye every 2 hours asneeded for dry eyes. 05/23/2024 tamsulosin (FLOMAX) 0.4 MG capsule Take 0.4 mg by mouth daily. 05/23/2024 triamterene-HCTZ (MAXZIDE-25) 37.5-25 MG tablet Take 1 tablet by mouth every morning. 05/23/2024 * Plan of Care - Anne Henderson RN - 05/26/2024 6:01 AM CDT End of Shift Summary For vital signs and complete assessments, please see documentation flowsheets. Pertinent assessments: Care assumed [id number]. A&O x4. Able to correctly answer questions but still seems confused. Elevated bp (162/75), tachycardic and tachypenic, other VSS on RA. MD paged regarding HR and increased respirations, no new orders. Denies N/V, SOB. Reported abd/flank pain, declines interventions. Up Ax2-4 to get back into bed and for cares. Not strong enough to get OOB this shift. Constantly setting alarm off even after education. Incont of bladder, occasionally using urinal/brief in place. LR 100 mL/hr. IV Zosyn given. NPO at midnight for probably ERCP today. Tele runningST 130's per telemarketing supervisor. Pt also constantly pulling tele leads off even after education. Major Shift Events: Constantly setting alarms off Treatment Plan: ERCP today, GI following, pain and symptom management, IV Zosyn Bedside Nurse: Anne Henderson RN Goal Outcome Evaluation: Plan of Care Reviewed With: patient Overall Patient Progress: no changeOverall Patient Progress: no change Outcome Evaluation: Pt confused, restless and setting alarms off Problem: Adult Inpatient Plan of Care Goal: Plan of Care Review Description: The Plan of Care Review/Shift note should be completed every shift. The Outcome Evaluation is a brief statement about your assessment that the patient is improving, declining, or no change. This information will be displayed automatically on your shift note. Outcome: Not Progressing Flowsheets (Taken 05/26/2024 0601) Outcome Evaluation: Pt confused, restless and setting alarms off Plan of Care Reviewed With: patient Overall Patient Progress: no change Goal: Patient-Specific Goal (Individualized) Description: You can add care plan individualizations to a care plan. Examples of Individualizationmight be: Parent requests to be called daily at 9am for status, I have a hard time hearing out of my right ear, or Do not touch me to wake me up as it startles me. Outcome: Not Progressing Goal: Absence of Hospital-Acquired Illness or Injury Outcome: Not Progressing Intervention: Identify and Manage Fall Risk Recent Flowsheet Documentation Taken 05/26/202444 by Anne Henderson RN Safety Promotion/Fall Prevention: activity supervised assistive device/personal items within reach clutter free environment maintained nonskid shoes/slippers when out of bed patient and family education room near nurse's station room organization consistent safety round/check completed supervised activity Intervention: Prevent Skin Injury Recent Flowsheet Documentation Taken 05/26/202444 by Anne Henderson RN Body Position: position changed independently Skin Protection: adhesive use limited incontinence pads utilized Device Skin Pressure Protection: absorbent pad utilized/changed Intervention: Prevent and Manage VTE (Venous Thromboembolism) Risk Recent Flowsheet Documentation Taken 05/26/202444 by Anne Henderson RN VTE Prevention/Management: SCDs off (sequential compression devices) Intervention: Prevent Infection Recent Flowsheet Documentation Taken 05/26/202444 by Anne Henderson RN Infection Prevention: cohorting utilized hand hygiene promoted rest/sleep promoted single patient room provided Goal: Optimal Comfort and Wellbeing Outcome: Not Progressing Intervention: Monitor Pain and Promote Comfort Recent Flowsheet Documentation Taken 05/26/202444 by Anne Henderson RN Pain Management Interventions: declines Goal: Readiness for Transition of Care Outcome: Not Progressing Problem: Pain Acute Goal: Optimal Pain Control and Function Outcome: Not Progressing Intervention: Develop Pain Management Plan Recent Flowsheet Documentation Taken 05/26/202444 by Anne Henderson RN Pain Management Interventions: declines Intervention: Prevent or Manage Pain Recent Flowsheet Documentation Taken 05/26/202444 by Anne Henderson RN Sensory Stimulation Regulation: care clustered lighting decreased Sleep/Rest Enhancement: awakenings minimized consistent schedule promoted noise level reduced regular sleep/rest pattern promoted room darkened Medication Review/Management: medications reviewed Intervention: Optimize Psychosocial Wellbeing Recent Flowsheet Documentation Taken 05/26/202444 by Anne Henderson RN Supportive Measures: active listening utilized decision-making supported problem-solving facilitated self-care encouraged verbalization of feelings encouraged * Plan of Care - Stone Hall RN - 05/25/2024 11:49 PM CDT Goal Outcome Evaluation: Plan of Care Reviewed With: patient Overall Patient Progress: no change Overall Patient Progress: no change Outcome Evaluation: up to floor at 2130, ERCP tomorrow To Do: End of Shift Summary For vital signs and complete assessments, please see documentation flowsheets. Pertinent assessments: Pt to floor at 2130. VSS, on RA. Afebrile. Up ind in room. Endorses flank and abd pain. Denies nausea/SOB. Voiding adequately, states no BM in several days. ERCP planned for tomorrow. NPO at midnight. Major Shift Events: admission to floor Treatment Plan: ERCP tomorrow, GI following, pain and symptom management Bedside Nurse: Stone Hall RN Problem: Adult Inpatient Plan of Care Goal: Plan of Care Review Description: The Plan of Care Review/Shift note should be completed every shift. The Outcome Evaluation is a brief statement about your assessment that the patient is improving, declining, or no change. This information will be displayed automatically on your shift note. Outcome: Progressing Flowsheets (Taken 05/25/2024 0944) Outcome Evaluation: up to floor at 2130, ERCP tomorrow Plan of Care Reviewed With: patient Overall Patient Progress: no change Goal: Patient-Specific Goal (Individualized) Description: You can add care plan individualizations to a care plan. Examples of Individualizationmight be: Parent requests to be called daily at 9am for status, I have a hard time hearing out of my right ear, or Do not touch me to wake me up as it startles me. Outcome: Progressing Goal: Absence of Hospital-Acquired Illness or Injury Outcome: Progressing Intervention: Identify and Manage Fall Risk Recent Flowsheet Documentation Taken 05/25/20242199 by Stone Hall RN Safety Promotion/Fall Prevention: activity supervised assistive device/personal items within reach increased rounding and observation increase visualization of patient lighting adjusted nonskid shoes/slippers when out of bed patient and family education room near nurse's station safety round/check completed Intervention: Prevent Skin Injury Recent Flowsheet Documentation Taken 05/25/20242199 by Stone Hall RN Skin Protection: adhesive use limited Device Skin Pressure Protection: absorbent pad utilized/changed tubing/devices free from skin contact Intervention: Prevent and Manage VTE (Venous Thromboembolism) Risk Recent Flowsheet Documentation Taken 05/25/20242199 by Stone Hall RN VTE Prevention/Management: SCDs off (sequential compression devices) Intervention: Prevent Infection Recent Flowsheet Documentation Taken 05/25/20242199 by Stone Hall RN Infection Prevention: cohorting utilized environmental surveillance performed equipment surfaces disinfected hand hygiene promoted personal protective equipment utilized rest/sleep promoted single patient room provided Goal: Optimal Comfort and Wellbeing Outcome: Progressing Goal: Readiness for Transition of Care Outcome: Progressing Intervention: Mutually Develop Transition Plan Recent Flowsheet Documentation Taken 05/25/2024 2100 by Stone Hall RN Equipment Currently Used at Home: none Problem: Pain Acute Goal: Optimal Pain Control and Function Outcome: Progressing Intervention: Prevent or Manage Pain Recent Flowsheet Documentation Taken 05/25/20242199 by Stone Hall cabinet mounter Review/Management: medications reviewed documented in this encounter Plan of Treatment Pending Results Name Type Priority Associated Diagnoses Date /Time Surgical Pathology Exam Pathology and Cytology Routine 05/27/2024 12:26 PM CDT EKG 12-lead, tracing only EKG STAT 05/28/2024 9:11 AM CDT Scheduled Orders Name Type Priority Associated Diagnoses Order Schedule Surgical Pathology Exam Pathology and Cytology Routine Release Upon Ordering for 1 Occurrences starting 05/27/2024, 1 completed Scheduled Procedures Name Priority Associated Diagnoses Date/Ti me CHOLECYSTECTOMY, LAPAROSCOPIC Calculus of bile duct with acute cholecystitis and obstruction documented as of this encounter Procedures Procedure Name Priority Date/Time Associated Diagnosis Comments EKG 12-LEAD, TRACING ONLY STAT 2023 9:11 AM CDT MAGNESIUM Add-On 05/28/2024 6:51 AM CDT COMPREHENSIVE METABOLIC PANEL Routine 6:51 AM CDT SODIUM Timed 05/28/2024 6:51 AM CDT CBC WITH PLATELETS Routine 05/28/2024 6: 51 AM CDT SODIUM Timed 05/27/2024 11:40 PM CDT SODIUM Timed 05/27/2024 5:50 PM CDT SODIUM Timed 05/27/2024 1:50 PM CDT MAGNESIUM Add-On 05/27/2024 6:25 AM CDT LIPASE Routine 05/27/2024 6:25 AM CDT COMPREHENSIVE METABOLIC PANEL Routine 6:25 AM CDT SODIUM Timed 05/27/2024 6:25 AM CDT CBC WITH PLATELETS Routine 05/27/2024 6: 25 AM CDT SODIUM Timed 05/27/2024 1:00 AM CDT SODIUM Timed 05/26/2024 5:43 PM CDT SODIUM RANDOM URINE STAT 05/26/2024 5 :17 PM CDT OSMOLALITY, RANDOM URINE STAT 024 5:17 PM CDT XR ERCP Routine 05/26/2024 2:56 PM CDT ENDOSCOPIC RETROGRADE CHOLANGIOPANCREATOGRAPHY Routine 05/26/2024 1:39 PM CDT GLUCOSE BY METER Routine 05/26/2024 12:26 PM CDT POTASSIUM Timed 05/26/2024 12:04 PM CDT SODIUM Timed 05/26/2024 12:04 PM CDT INR Routine 05/26/2024 9:47 AM CDT TSH WITH FREE T4 REFLEX Add-On 05/26/20 24 6:49 AM CDT MAGNESIUM Add-On 05/26/2024 6:49 AM CDT COMPREHENSIVE METABOLIC PANEL Routine 6:49 AM CDT CBC WITH PLATELETS Routine 05/26/2024 6: 49 AM CDT SODIUM Timed 05/26/2024 12:23 AM CDT documented in this encounter Results * Magnesium (05/28/2024 6:51 AM CDT) Magnesium 2.3 1.7 - 2.3 mg/dL 05/28/2024 7:52 AM CDT [facility] Blood BLOOD SPECIMEN / Unknown Venipuncture / Unknown 05/28/2024 6:51 AM CDT 05/28/2024 7:02 AM CDT Seth Rios MD LAB - BLOOD ORDER MELYSSA [facility] [address] Lab (1st floor, no room number) [address] [place] [address] * (ABNORMAL) Sodium (05/28/2024 6:51 AM CDT) Sodium 131(L) 135 - 145 mmol/L 05/28/2024 7:27 AM CDT LABORATORY Blood BLOOD SPECIMEN / Unknown Venipuncture / Unknown 05/28/2024 6:51 AM CDT 05/28/2024 7:02 AM CDT Kenneth Mayen MD LAB - BLOOD ORDERABL ES [facility] [address] Lab (1st floor, no room number) [address] * (ABNORMAL) Comprehensive metabolic panel (05/28/2024 6:51 AM CDT) Sodium 131(L) 135 - 145 mmol/L 05/28/2024 7:27 AM CDT LABORATORY Potassium 3.7 3.4 - 5.3 mmol/L 05/28/2024 7:27 AM CDT LABORATORY Carbon Dioxide (CO2) 19(L) 22 - 29 mmol/L 05/28/2024 7:27 AM CDT [facility] Anion Gap 15 7 - 15 mmol/L 05/28/2024 7:27 AM CDT LABORATORY Urea Nitrogen 16.6 8.0 - 23.0 mg/dL 05/28/2024 7:27 AM CDT LABORATORY Creatinine 1.06 0.67 - 1.17 mg/dL 05/28/2024 7:27 AM CDT LABORATORY GFR Estimate 74 >60 mL/min/1.7 3m2 05/28/2024 7:27 AM CDT [facility] Comment:eGFR calculated usin 2020 CKD-EPI equation. Calcium 8.3(L) 8.8 - 10.4 [...] - 107 mmol/L 05/28/2024 7:27 AM CDT LABORATORY Glucose 126(H) 70 - 99 mg/dL 05/28/2024 7:27 AM CDT LABORATORY Alkaline Phosphatase 288(H) 40 - 150 U/L 05/28/2024 7:27 AM CDT LABORATORY AST 200(H) 0 - 45 U/L 05/28/2024 7:27 AM CDT LABORATORY ALT 229(H) 0 - 70 U/L 05/28/2024 7:27 AM CDT LABORATORY Protein Total 6.1(L) 6.4 - 8.3 g/dL 05/28/2024 7:27 AM CDT LABORATORY Albumin 3.3(L) 3.5 - 5.2 g/dL 05/28/2024 7:27 AM CDT [facility] Bilirubin Total 0.7 <=1.2 mg/dL 05/28/2024 7:27 AM CDT [facility] Blood BLOOD SPECIMEN / Unknown Venipuncture / Unknown 05/28/2024 6:51 AM CDT 05/28/2024 7:02 AM CDT Dorita Thompson MD LAB - BLOOD ORDERABL ES [facility] [address] Lab (1st floor, no room number) [place] [address] * (ABNORMAL) CBC with platelets (05/28/2024 6:51 AM CDT) WBC Count 12.1(H) 4.0 - 11.0 10e3/uL [...] LAB - BLOOD ORDERABL ES [facility] [address] Lab (1st floor, no room number) [address] * (ABNORMAL) Sodium (05/27/2024 11:40 PM CDT) Sodium 129(L) 135 - 145 mmol/L 05/28/2024 12:02 AM CDT [facility] Blood BLOOD SPECIMEN / Unknown Venipuncture / Unknown 05/27/2024 11:40 PM CDT 05/27/2024 11:44 PM CDT Kenneth Mayen MD LAB - BLOOD ORDERABL ES Performing Organization Address City/[facility]/ZIP Co de Phone Number [facility] [address] Lab (1st floor, no room number) [address] * (ABNORMAL) Sodium (05/27/2024 5:50 PM CDT) Sodium 125(L) 135 - 145 mmol/L 05/27/2024 6:19 PM CDT [facility] Blood STRUCTURE OF LEFT UPPER LIMB / Unknown Venipuncture / Unknown 05/27/2024 5:50 PM CDT 05/27/2024 5:54 PM CDT Kenneth Mayen MD LAB - BLOOD ORDERABL ES Performing Organization Address [facility]/ZIP Co de Phone Number [facility] [address] Lab (1st floor, no room number) [address] * (ABNORMAL) Sodium (05/27/2024 1:50 PM CDT) Sodium 123(L) 135 - 145 mmol/L 05/27/2024 2:32 PM CDT [facility] Blood STRUCTURE OF RIGHT UPPER LIMB / Unknown Venipuncture / Unknown 05/27/2024 1:50 PM CDT 05/27/2024 1:59 PM CDT Kenneth Mayen MD LAB - BLOOD ORDERABL ES [facility] [address] Lab (1st floor, no room number) [address] * Magnesium (05/27/2024 6:25 AM CDT) Magnesium 1.9 1.7 - 2.3 mg/dL 05/27/2024 8:21 AM CDT [facility] Blood STRUCTURE OF RIGHT UPPER LIMB / Unknown Venipuncture / Unknown 05/27/2024 6:25 AM CDT 05/27/2024 6:38 AM CDT Dorita Thompson MD LAB - BLOOD ORDERABL ES [facility] [address] Lab (1st floor, no room number) [address] * (ABNORMAL) Sodium (05/27/2024 6:25 AM CDT) Sodium 123(L) 135 - 145 mmol/L 05/27/2024 7:06 AM CDT LABORATORY Blood STRUCTURE OF RIGHT UPPER LIMB / Unknown Venipuncture / Unknown 05/27/2024 6:25 AM CDT 05/27/2024 6:38 AM CDT Kenneth Mayen MD LAB - BLOOD ORDERABL ES [facility] [address] Lab (1st floor, no room number) [address] * (ABNORMAL) Comprehensive metabolic panel (05/27/2024 6:25 AM CDT) Sodium 123(L) 135 - 145 mmol/L 05/27/2024 7:06 AM CDT LABORATORY Potassium 3.3(L) 3.4 - 5.3 mmol/L 05/27/2024 7:06 AM CDT LABORATORY Carbon Dioxide (CO2) 20(L) 22 - 29 mmol/L 05/27/2024 7:06 AM CDT LABORATORY Anion Gap 12 7 - 15 mmol/L 05/27/2024 7:06 AM CDT [facility] Urea Nitrogen 16.6 8.0 - 23.0 mg/dL 05/27/2024 7:06 AM CDT [facility] Creatinine 1.08 0.67 - 1.17 mg/dL 05/27/2024 7:06 AM CDT [facility] GFR Estimate 72 >60 mL/min/1.7 3m2 05/27/2024 7:06 AM CDT [facility] Comment:eGFR calculated usin 2020 CKD-EPI equation. Calcium 8.6(L) 8.8 - 10.4 mg/dL 05/27/2024 7:06 AM CDT [facility] Comment:Reference intervals for this test were updated on 03/08/2024 to reflect our healthy population more accurately. There may be differences in the flagging of prior results with similar values performed with this method. Those prior results can be interpreted in the context of the updated reference intervals. Chloride 91(L) 98 - 107 mmol/L 05/27/2024 7:06 AM CDT [facility] Glucose 112(H) 70 - 99 mg/dL 05/27/2024 7:06 AM CDT [facility] Alkaline Phosphatase 292(H) 40 - 150 U/L 05/27/2024 7:06 AM CDT [facility] AST 315(H) 0 - 45 U/L 05/27/2024 7:06 AM CDT [facility] ALT 297(H) 0 - 70 U/L 05/27/2024 7:06 AM CDT [facility] Protein Total 6.2(L) 6.4 - 8.3 g/dL 05/27/2024 7:06 AM CDT [facility] Albumin 3.5 3.5 - 5.2 g/dL 05/27/2024 7:06 AM CDT [facility] Bilirubin Total 2.7(H) <=1.2 mg/dL 05/27/2024 7:06 AM CDT [facility] Blood STRUCTURE OF RIGHT UPPER LIMB / Unknown Venipuncture / Unknown 05/27/2024 6:25 AM CDT 05/27/2024 6:38 AM CDT Dorita Thompson MD LAB - BLOOD ORDERABL ES LAB[facility] [address] Lab (1st floor, no room number) [place] [address]UST * (ABNORMAL) Lipase (05/27/2024 6:25 AM CDT) Lipase 63(H) 13 - 60 U/L 05/27/2024 7:06 AM CDT [facility] Blood STRUCTURE OF RIGHT UPPER LIMB / Unknown Venipuncture / Unknown 05/27/2024 6:25 AM CDT 05/27/2024 6:38 AM CDT Dorita Thompson MD LAB - BLOOD ORDERABL ES LABORATORY [facility] [address] Lab (1st floor, no room number) [place] [address]UST * (ABNORMAL) CBC with platelets (05/27/2024 6:25 AM CDT) WBC Count 10.1 4.0 - 11.0 10e3/uL 05/27/2024 6:42 AM CDT [facility] RBC Count 4.07(L) 4.40 - 5.90 10e6/uL 05/27/2024 6:42 AM CDT [facility] Hemoglobin 12.3(L) 13.3 - 17.7 g/dL 05/27/2024 6:42 AM CDT [facility] Hematocrit 36.2(L) 40.0 - 53.0 % 05/27/2024 6:42 AM CDT [facility] MCV 89 78 - 100 fL 05/27/2024 6:42 AM CDT [facility] MCH 30.2 26.5 - 33.0 pg 05/27/2024 6:42 AM CDT [facility] MCHC 34.0 31.5 - 36.5 g/dL 05/27/2024 6:42 AM CDT [facility] RDW 13.7 10.0 - 15.0 % 05/27/2024 6:42 AM CDT [facility] Platelet Count 142(L) 150 - 450 10e3/uL 05/27/2024 6:42 AM CDT [facility] Blood STRUCTURE OF RIGHT UPPER LIMB / Unknown Venipuncture / Unknown 05/27/2024 6:25 AM CDT 05/27/2024 6:38 AM CDT Dorita Thompson MD LAB - BLOOD ORDERABL ES Performing Organization Address City/[facility]/ZIP Co de Phone Number [facility] [address] Lab (1st floor, no room number) [address] * (ABNORMAL) Sodium (05/27/2024 1:00 AM CDT) Sodium 127(L) 135 - 145 mmol/L 05/27/2024 1:32 AM CDT [facility] Blood BLOOD SPECIMEN / Unknown Venipuncture / Unknown 05/27/2024 1:00 AM CDT 05/27/2024 1:04 AM CDT Kenneth Mayen MD LAB - BLOOD ORDERABL ES Performing Organization Address [facility]/ZIP Co de Phone Number [facility] [address] Lab (1st floor, no room number) [address] [place] [address] * (ABNORMAL) Sodium (05/26/2024 5:43 PM CDT) Sodium 123(L) 135 - 145 mmol/L 05/26/2024 6:23 PM CDT [facility] Blood STRUCTURE OF LEFT UPPER LIMB / Unknown Venipuncture / Unknown 05/26/2024 5:43 PM CDT 05/26/2024 5:59 PM CDT Kenneth Mayen MD LAB - BLOOD ORDERABL ES Performing Organization Address City/[facility]/ZIP Co de Phone Number [facility] Lab [address] Lab (1st floor, no room number) [address] * Osmolality urine (05/26/2024 5:17 PM [...] LAB - URINE ORDERABL ES UU LABORATORY [facility] Lab [address] [facility], [address] [place] [address] * Sodium random urine (05/26/2024 5:17 PM [...] Thompson MD LAB - URINE ORDERABL ES LABORATORY [facility] [address] Lab (1st floor, no room number) [place] [address], [facility] * XR ERCP (05/26/2024 2:56 PM CDT) Narrative RADIANT - 05/26/2024 2:58 PM CDT This exam was marked as non-reportable because it will not be read by a radiologist or a [facility] non-radiologist provider. Jefferson Gama MD IMG DIAGNOSTIC I MAGING ORDERABLES RADIANT * ENDOSCOPIC RETROGRADE CHOLANGIOPANCREATOGRAPHY (05/26/2024 1:39 PM CDT) [employer] Patient Name: Car Calvert ? Procedure Date: [...] Exera II Duodenovideoscope (ERCP), Model # ?[id number]-[id number], [facility] # [id number] was introduced ?through the mouth, and used to inject contrast into ?and used to inject contrast into the bile duct. The ?ERCP was accomplished without difficulty. The ?patient tolerated the procedure well. ? Findings: ? The table inspector film was normal. The esophagus was successfully [...] Note Initiated On: 05/26/2024 1:39 PM MRN: ?[id number] Procedure Date: ? 05/26/2024 1:39:55 PM Total Procedure Duration: 0 hours 25 minutes 28 seconds Estimated Blood Loss: ? Scope In: 2:21:09 PM Scope Out: 2:46:37 PM RADIOLOGY RESULTS 05/26/2024 1:39 PM CDT Provider Not In System PROCEDURES Performing Organization Address [facility]/ZIP Co de Phone Number RADIOLOGY RESULTS * (ABNORMAL) Glucose by meter (05/26/2024 12:26 PM CDT) GLUCOSE BY METER POCT 124(H) 70 - 99 mg/dL 05/26/2024 12:33 PM CDT [facility] POC Blood, Capillary BLOOD SPECIMEN / Unknown 05/26/2024 12:26 PM CDT 05/26/2024 12:33 PM CDT Seth Rios MD LAB - BEAKER POCT Performing Organization Address [facility]/ZIP Co de Phone Number LABORATORY [facility] [address] Lab (1st floor, no room number) [address] * (ABNORMAL) Potassium (05/26/2024 12:04 PM CDT) Potassium 3.3(L) 3.4 - 5.3 mmol/L 05/26/2024 12:42 PM CDT [facility] Blood STRUCTURE OF RIGHT HAND / Unknown Venipuncture / Unknown 05/26/2024 12:04 PM CDT 05/26/2024 12:19 PM CDT Dorita Thompson MD LAB - BLOOD ORDERABL ES Performing Organization Address [facility]/ZIP Co de Phone Number LABORATORY [facility] [address] Lab (1st floor, no room number) [address] * (ABNORMAL) Sodium (05/26/2024 12:04 PM CDT) Sodium 122(L) 135 - 145 mmol/L 05/26/2024 12:45 PM CDT [facility] Blood STRUCTURE OF RIGHT HAND / Unknown Venipuncture / Unknown 05/26/2024 12:04 PM CDT 05/26/2024 12:19 PM CDT Kenneth Mayen MD LAB - BLOOD ORDERABL ES Performing Organization Address [facility] Co de Phone Number [facility] [address] Lab (1st floor, no room number) [address] * INR (05/26/2024 9:47 AM CDT) INR 1.10 0.85 - 1.15 05/26/2024 10:12 AM CDT [facility] Blood STRUCTURE OF RIGHT HAND / Unknown Venipuncture / Unknown 05/26/2024 9:47 AM CDT 05/26/2024 9:56 AM CDT Asuncion Flynn PA-C LAB - BLOOD ORDERABLES Performing Organization Address [facility] Co de Phone Number [facility] [address] Lab (1st floor, no room number) [address] * TSH with free T4 reflex (05/26/2024 6:49 AM CDT) TSH 1.27 0.30 - 4.20 uIU/mL 05/26/2024 12:29 PM CDT [facility] Blood STRUCTURE OF RIGHT HAND / Unknown Venipuncture / Unknown 05/26/2024 6:49 AM CDT 05/26/2024 6:59 AM CDT Dorita Thompson MD LAB - BLOOD ORDERABL ES Performing Organization Address [facility] Co de Phone Number [facility] [address] Lab (1st floor, no room number) [address] * (ABNORMAL) Magnesium (05/26/2024 6:49 AM CDT) Magnesium 1.5(L) 1.7 - 2.3 mg/dL 05/26/2024 8:55 AM CDT [facility] Blood STRUCTURE OF RIGHT HAND / Unknown Venipuncture / Unknown 05/26/2024 6:49 AM CDT 05/26/2024 6:59 AM CDT Dorita Thompson MD LAB - BLOOD ORDERABL ES LABORATORY [facility] [address] Lab (1st floor, no room number) [place] [address], [facility] * (ABNORMAL) CBC with platelets (05/26/2024 6:49 AM CDT) [facility] WBC Count 9.7 4.0 - 11.0 10e3/uL 05/26/2024 7:02 AM CDT [facility] RBC Count 4.12(L) 4.40 - 5.90 10e6/uL 05/26/2024 7:02 AM CDT [facility] Hemoglobin 12.5(L) 13.3 - 17.7 g/dL 05/26/2024 7:02 AM CDT [facility] Hematocrit 36.6(L) 40.0 - 53.0 % 05/26/2024 7:02 AM CDT [facility] MCV 89 78 - 100 fL 05/26/2024 7:02 AM CDT [facility] MCH 30.3 26.5 - 33.0 pg 05/26/2024 7:02 AM CDT [facility] MCHC 34.2 31.5 - 36.5 g/dL 05/26/2024 7:02 AM CDT [facility] RDW 13.5 10.0 - 15.0 % 05/26/2024 7:02 AM CDT [facility] Platelet Count 123(L) 150 - 450 10e3/uL 05/26/2024 7:02 AM CDT [facility] Blood STRUCTURE OF RIGHT HAND / Unknown Venipuncture / Unknown 05/26/2024 6:49 AM CDT 05/26/2024 7:00 AM CDT Sulaiman Wan MD LAB - BLOOD ORDERABL ES LABORATORY [facility] [address] Lab (1st floor, no room number) [place] [address], [facility] * (ABNORMAL) Comprehensive metabolic panel (05/26/2024 6:49 AM CDT) Sodium 121(L) 135 - 145 mmol/L 05/26/2024 7:32 AM CDT [facility] Potassium 3.1(L) 3.4 - 5.3 mmol/L 05/26/2024 7:32 AM CDT [facility] Carbon Dioxide (CO2) 19(L) 22 - 29 mmol/L 05/26/2024 7:32 AM CDT [facility] Anion Gap 15 7 - 15 mmol/L 05/26/2024 7:32 AM CDT [facility] Urea Nitrogen 19.1 8.0 - 23.0 mg/dL 05/26/2024 7:32 AM CDT [facility] Creatinine 1.22(H) 0.67 - 1.17 mg/dL 05/26/2024 7:32 AM CDT [facility] GFR Estimate 62 >60 mL/min/1.7 3m2 05/26/2024 7:32 AM CDT [facility] Comment:eGFR calculated usin 2020 CKD-EPI equation. Calcium 8.5(L) 8.8 - 10.4 mg/dL 05/26/2024 7:32 AM CDT [facility] Comment:Reference intervals for this test were updated on 03/08/2024 to reflect our healthy population more accurately. There may be differences in the flagging of prior results with similar values performed with this method. Those prior results can be interpreted in the context of the updated reference intervals. Chloride 87(L) 98 - 107 mmol/L 05/26/2024 7:32 AM CDT [facility] Glucose 124(H) 70 - 99 mg/dL 05/26/2024 7:32 AM CDT [facility] Alkaline Phosphatase 166(H) 40 - 150 U/L 05/26/2024 7:32 AM CDT [facility] AST 90(H) 0 - 45 U/L 05/26/2024 7:32 AM CDT [facility] ALT 208(H) 0 - 70 U/L 05/26/2024 7:32 AM CDT [facility] Protein Total 6.5 6.4 - 8.3 g/dL 05/26/2024 7:32 AM CDT [facility] Albumin 3.4(L) 3.5 - 5.2 g/dL 05/26/2024 7:32 AM CDT [facility] Bilirubin Total 1.2 <=1.2 mg/dL 05/26/2024 7:32 AM CDT [facility] Blood STRUCTURE OF RIGHT HAND / Unknown Venipuncture / Unknown 05/26/2024 6:49 AM CDT 05/26/2024 6:59 AM CDT Sulaiman Wan MD LAB - BLOOD ORDERABL ES [facility] [address] Lab (1st floor, no room number) [place] [address] * (ABNORMAL) Sodium (05/26/2024 12:23 AM CDT) Sodium 126(L) 135 - 145 mmol/L 05/26/2024 1:05 AM CDT [facility] Blood STRUCTURE OF FINGER OF RIGHT HAND / Unknown Capillary / Unknown 05/26/2024 12:23 AM CDT 05/26/2024 12:46 AM CDT Sulaiman Wan MD LAB - BLOOD ORDERABL ES [facility] Lab [address] Lab (1st floor, no room number) [place] [address]UST documented in this encounter Visit Diagnoses Diagnosis Calculus of bile duct with acute cholecystitis and obstruction- Primary Cholangitis (H) Cholangitis Duodenal ulcer without hemorrhage or perforation and without obstruction Duodenal ulcer, unspecified as acute or chronic, without hemorrhage, perforation, or obstruction Choledocholithiasis with obstruction Calculus of bile duct without mention of cholecystitis, with obstruction Cholecystitis Cholecystitis, unspecified documented in this encounter Administered Medications Inactive Administered Medications - up to 3 most recent administrations Medication Order MAR Action Action Date Dose Rate Site albuterol (PROVENTIL) neb solution 2.5 mg 2.5 mg, Nebulization, EVERY 2 HOURS PRN, shortness of breath, Starting on Yara 05/26/24 at 1617 amoxicillin-clavulanate (AUGMENTIN) 875-125 MG per tablet 1 tablet Routine, 1 tablet, Oral, EVERY 12 HOURS SCHEDULED, First dose on 05/28/24 at 1030, Indications: Intra-Abdominal Infection BUPivacaine 0.5% - EPINEPHrine 1:200,000 (PF) injection PRN, Starting on Thu05/27/24 at 1047, Intra-procedure $Given 05/27/2024 10:47 AM CDT 30 mLs Operative Site/Surgical Site finasteride (PROSCAR) tablet 5 mg 5 mg, Oral, DAILY, First dose on Yara 05/26/24 at 1630, *Do not handle tablets if you are * $Given 05/28/2024 8:20 AM CDT 5 mg $Given 05/26/2024 8:56 PM CDT 5 mg hydrALAZINE (APRESOLINE) injection 10 mg 10 mg, Intravenous, EVERY 4 HOURS PRN, high blood pressure, for systolic BP greater than 180 mmHg, Administer over 1 Minutes, Starting on Thu05/25/24 at 2306 hydrALAZINE (APRESOLINE) tablet 10 mg 10 mg, Oral, EVERY 4 HOURS PRN, high blood pressure, for systolic BP greater than 180 mmHg, Starting on Thu05/25/24 at 2306 metoprolol tartrate (LOPRESSOR) tablet 25 mg 25 mg, Oral, 2 TIMES DAILY, First dose on Yara 05/26/24 at 2100, Tablets can be crushed and given via enteral route. $Given 05/28/2024 8:20 AM CDT 25 mg $Given 05/27/2024 10:24 PM CDT 25 mg $Given 05/26/2024 8:56 PM CDT 25 mg naloxone (NARCAN) injection 0.2 mg 0.2 mg, Intravenous, EVERY 2 MIN PRN, opioid reversal, Starting on Yara 05/26/24 at 0019, Administer intravenous route when available and notify provider when administered. For unintended sedation or respiratory depression if all of the below criteria are met: ~ respiratory rate LESS than or EQUAL to 8. ~SaO2 less than 92% and or/end-tidal CO2 is greater than 50. ~ the patient is receiving an opioid, has unintended sedations assessed as RASS (-3), and is currently not on mechanical ventilation. RASS scale moderate (-3) is movement or eye opening to voice but no eye contact. Patient Monitoring Once the patient has demonstrated a response to the naloxone, continue to monitor respiratory rate, depth, oxygen saturation and end-tidal CO2 (if available) every 15 minutes x 2, then every 30 minutes x 2, then every 1 hour x 1 after each naloxone dose. Consider transfer to ICU if patient respiratory parameters have not improved after 4 naloxone doses. naloxone (NARCAN) injection 0.2 mg 0.2 mg, Intramuscular, EVERY 2 MIN PRN, opioid reversal, Starting on Yara 05/26/24 at 0019, Administer intramuscular if an intravenous route is not available and notify provider when administered. For unintended sedation or respiratory depression if all of the below criteria are met: ~ respiratory rate LESS than or EQUAL to 8. ~SaO2 less than 92% and or/end-tidal CO2 is greater than 50. ~ the patient is receiving an opioid, has unintended sedations assessed as RASS (-3), and is currently not on mechanical ventilation. RASS scale moderate (-3) is movement or eye opening to voice but no eye contact. Patient Monitoring Once the patient has demonstrated a response to the naloxone, continue to monitor respiratory rate, depth, oxygen saturation and end-tidal CO2 (if available) every 15 minutes x 2, then every 30 minutes x 2, then every 1 hour x 1 after each naloxone dose. Consider transfer to ICU if patient respiratory parameters have not improved after 4 naloxone doses. naloxone (NARCAN) injection 0.4 mg 0.4 mg, Intravenous, EVERY 2 MIN PRN, opioid reversal, Starting on Yara 05/26/24 at 0019, Administer intravenous route when available and notify provider when administered. For unintended sedation or respiratory depression if all of the below criteria are met: ~ respiratory rate LESS than or EQUAL to 8. ~ SaO2 less than 92% and or/end-tidal CO2 is greater than 50. ~ the patient is receiving an opioid, has unintended sedation assessed as RASS (-4) or (-5) and patient is currently not on mechanical ventilation. RASS scale (-4) is deep sedation with no response to voice but movement or eye opening to physical stimulation. RASS scale (-5) is unarousable. Patient Monitoring Once the patient has demonstrated a response to the naloxone, continue to monitor respiratory rate, depth, oxygen saturation and end-tidal CO2 (if available) every 15 minutes x 2, then every 30 minutes x 2, then every 1 hour x 1 after each naloxone dose. Consider transfer to ICU if patient respiratory parameters have not improved after 4 naloxone doses. naloxone (NARCAN) injection 0.4 mg 0.4 mg, Intramuscular, EVERY 2 MIN PRN, opioid reversal, Starting on Thu05/26/24 at 0019, Administer intramuscular if an intravenous route is not available and notify provider when administered. For unintended sedation or respiratory depression if all of the below criteria are met: ~ respiratory rate LESS than or EQUAL to 8. ~ SaO2 less than 92% and or/end-tidal CO2 is greater than 50. ~ the patient is receiving an opioid, has unintended sedation assessed as RASS (-4) or (-5) and patient is currently not on mechanical ventilation. RASS scale (-4) is deep sedation with no response to voice but movement or eye opening to physical stimulation. RASS scale (-5) is unarousable. Patient Monitoring Once the patient has demonstrated a response to the naloxone, continue to monitor respiratory rate, depth, oxygen saturation and end-tidal CO2 (if available) every 15 minutes x 2, then every 30 minutes x 2, then every 1 hour x 1 after each naloxone dose. Consider transfer to ICU if patient respiratory parameters have not improved after 4 naloxone doses. ondansetron (ZOFRAN ODT) ODT tab 4 mg 4 mg, Oral, EVERY 6 HOURS PRN, nausea, vomiting, Starting on Thu05/25/24 at 2306, This is Step 1 of nausea and vomiting management. If nausea not resolved in 15 minutes, go to Step 2 prochlorperazine (COMPAZINE). With dry hands, peel back foil backing and gently remove tablet. Do not push oral disintegrating tablet through foil backing. Administer immediately on tongue and oral disintegrating tablet dissolves in seconds, then swallow with saliva. Liquid not required. ondansetron (ZOFRAN ODT) ODT tab 4 mg 4 mg, Oral, EVERY 6 HOURS PRN, nausea, vomiting, Starting on Thu05/26/24 at 1501, This is Step 1 of nausea and vomiting management. If nausea not resolved in 15 minutes, go to Step 2 prochlorperazine (COMPAZINE). Do not push through foil backing. Peel back foil and gently remove. Place on tongue immediately. Administration with liquid unnecessary With dry hands, peel back foil backing and gently remove tablet. Do not push oral disintegrating tablet through foil backing. Administer immediately on tongue and oral disintegrating tablet dissolves in seconds, then swallow with saliva. Liquid not required. ondansetron (ZOFRAN) injection 4 mg 4 mg, Intravenous, EVERY 6 HOURS PRN, nausea, vomiting, Administer over 2-5 Minutes, Starting on Thu05/25/24 at 2306, Give IF patient unable to tolerate oral medication. This is Step 1 of nausea and vomiting management. If nausea not resolved in 15 minutes, go to Step 2 prochlorperazine (COMPAZINE). ondansetron (ZOFRAN) injection 4 mg 4 mg, Intravenous, EVERY 6 HOURS PRN, nausea, vomiting, Administer over 2-5 Minutes, Starting on Yara 05/26/24 at 1501, This is Step 1 of nausea and vomiting management. If nausea not resolved in 15 minutes, go to Step 2 prochlorperazine (COMPAZINE). oxyCODONE (ROXICODONE) tablet 5 mg 5 mg, Oral, EVERY 4 HOURS PRN, severe pain, IF pain not managed with non-pharmacological and non-opioid interventions, Starting on Thu05/25/24 at 2306, May use concomitant with non-opioid analgesics. $Given 05/27/2024 6:05 AM CDT 5 mg oxyCODONE IR (ROXICODONE) half-tab 2.5 mg 2.5 mg, Oral, EVERY 4 HOURS PRN, moderate pain, IF pain not managed with non-pharmacological and non-opioid interventions, Starting on Thu05/25/24 at 2306, May use concomitant with non-opioid analgesics. $Given 05/26/2024 4:41 PM CDT 2.5 mg pantoprazole (PROTONIX) EC tablet 40 mg 40 mg, Oral, EVERY MORNING BEFORE BREAKFAST, First dose on Thu05/27/24 at 1530, DO NOT CRUSH. $Given 05/28/2024 8:20 AM CDT 40 mg $Given 05/27/2024 4:03 PM CDT 40 mg senna-docusate (SENOKOT-S/PERICOLACE) 8.6-50 MG per tablet 1 tablet 1 tablet, Oral, 2 TIMES DAILY PRN, constipation, Starting on Thu05/25/24 at 2301, If no bowel movement in 24 hours, increase to 2 tablets by mouth. IF more than 1 constipation PRN medication is ordered, administer step-ford as indicated, moving to the next step ONLY if prior step ineffective. Step 1: senna-docusate (SENOKOT-S; PERICOLACE) OR bisacodyl (DULCOLAX) EC tablet Step 2: polyethylene glycol (MIRALAX/GLYCOLAX) Step 3: bisacodyl (DULCOLAX) suppository Step 4: enema Hold for loose stools. senna-docusate (SENOKOT-S/PERICOLACE) 8.6-50 MG per tablet 2 tablet 2 tablet, Oral, 2 TIMES DAILY PRN, constipation, Starting on Thu05/25/24 at 2301, IF more than 1 constipation PRN medication is ordered, administer step-ford as indicated, moving to the next step ONLY if prior step ineffective. Step 1: senna-docusate (SENOKOT-S; PERICOLACE) OR bisacodyl (DULCOLAX) EC tablet Step 2: polyethylene glycol (MIRALAX/GLYCOLAX) Step 3: bisacodyl (DULCOLAX) suppository Step 4: enema Hold for loose stools. sodium chloride (PF) 0.9% PF flush 3 mL 3 mL, Intracatheter, EVERY 8 HOURS, First dose on Thu05/25/24 at 2330, to lock peripheral IV dormant line $Given 05/28/2024 8:22 AM CDT 3 mLs $Given 05/27/2024 10:25 PM CDT 3 mLs $Given 05/26/2024 12:44 AM CDT 3 mLs sodium chloride 0.9% irrigation (bag) PRN, Starting on Thu05/27/24 at 1154, Intra-procedure $Given 05/27/2024 11:54 AM CDT 400 mLs Operative Site/Surgi emma Site tamsulosin (FLOMAX) capsule 0.4 mg 0.4 mg, Oral, DAILY, First dose on Thu05/26/24 at 1630, Administer 30 minutes after the same meal each day. Capsules should be swallowed whole; do not crush chew or open. $Given 05/28/2024 8:20 AM CDT 0.4 mg $Given 05/26/2024 4:41 PM CDT 0.4 mg documented in this encounter Active and Recently Administered Medications Times are shown in CDT. Scheduled Medication Order 05/26/2024 05/27/2024 05/28/2024 amLODIPine (NORVASC) tablet 5 mg 5 mg, Oral, DAILY, First dose on Yara 05/26/24 at 1630, On hold since Thu05/26/2024 at 1605 until manually unheld 1605 (Held by provider - Provider: Dorita Thompson MD - Reason: Other)1630 (Automatically Held) 0900 (Automatically Held) 0900 (Automatically Held)1326 (Unheld by provider - Provider: Orders Generic Provider) amoxicillin-clavulanate (AUGMENTIN) 875-125 MG per tablet 1 tablet Routine, 1 tablet, Oral, EVERY 12 HOURS SCHEDULED, First dose on Thu05/28/24 at 1030, Indications: Intra-Abdominal Infection 1030 (Canceled Entry - Provider: Orders Generic Provider - Comment: Automatically canceled at discontinue of medication order) ceFAZolin Sodium (ANCEF) injection 2 g (COMPLETED) Routine, 2 g, Intravenous, PRE-OP/PRE-PROCEDURE, Starting on Thu05/27/24 at 0817, For 1 dose, Give first dose within 1 hour PRIOR to incision. If patient weight is greater than or equal to 120 kg increase dose to 3 g., Indications: Perioperative Pharmacoprophylaxis, Pre-procedure 1021 ($Given - Provider: Concepcion Rosado APRN [employer]) famotidine (PEPCID) tablet 20 mg (CANCELED) 20 mg, Oral, 2 TIMES DAILY, First dose on Yara 05/26/24 at 2100 2056 ($Given - Provider: Yunior Canales, YASEMIN) 0815 (Auto Hold - Provider: Orders Generic Provider - Reason: Transfer to a procedural area)0900 (Automatically Held - Provider: Orders Generic Provider)1430 (Unhold - Provider: Orders Generic Provider)1505 ($Given - Provider: Stone Hall RN - Comment: pt did not receive AM dose. Requesting now.)1830 (Canceled Entry - Provider: Stone Hall RN - Comment: given at 1505 per pt request. missed AM dose.) finasteride (PROSCAR) tablet 5 mg 5 mg, Oral, DAILY, First dose on Yara 05/26/24 at 1630, *Do not handle tablets if you are * 1720 (Not Given - Provider: Yunior Canales RN - Reason: Nausea)2055 ($Given - Provider: Yunior Canales RN) 0815 (Auto Hold - Provider: Orders Generic Provider - Reason: Transfer to a procedural area)0900 (Automatically Held - Provider: Orders Generic Provider)1430 (Unhold - Provider: Orders Generic Provider) 0820 ($Given - Provider: Stone Hall, RN) indocyanine green (IC-GREEN) injection 2.5 mg (COMPLETED) 2.5 mg, Intravenous, ONCE, On Thu05/27/24 at 0830, For 1 dose, Reconstitute vial with 10 mL Sterile Water for Injection (conc 2.5 mg/mL) PRIOR to administration. Administer IV as a single dose at least 45 minutes prior to robotic cholecystectomy surgery. Use prepared solution within 1 hours and discard any unused solution., Pre-procedure 0856 ($Given - Provider: Birgit Gordon RN) metoprolol tartrate (LOPRESSOR) tablet 25 mg 25 mg, Oral, 2 TIMES DAILY, First dose on Thu05/26/24 at 2100, Tablets can be crushed and given via enteral route. 2055 ($Given - Provider: Yunior Canales RN) 0815 (Auto Hold - Provider: Orders Generic Provider - Reason: Transfer to a procedural area)0900 (Automatically Held - Provider: Orders Generic Provider)1430 (Unhold - Provider: Orders Generic Provider)2224 ($Given - Provider: Yunior Canales RN) 0820 ($Given - Provider: Stone Hall, RN) pantoprazole (PROTONIX) EC tablet 40 mg 40 mg, Oral, EVERY MORNING BEFORE BREAKFAST, First dose on Thu05/27/24 at 1530, DO NOT CRUSH. 1603 ($Given - Provider: Yunior Canales RN) 0820 ($Given - Provider: Stone Hall, YASEMIN) piperacillin-tazobactam (ZOSYN) 3.375 g vial to attach to NS 100 mL bag (CANCELED) Routine, 3.375 g, Intravenous, EVERY 6 HOURS, First dose on Yara 05/26/24 at 0030, Lactated Ringer's solution is not compatible with piperacillin-tazobactam for injection., Indications: Intra-Abdominal Infection 0044 ($New Bag - Provider: Anne Henderson RN)0632 ($New Bag - Provider: Anne Henderson RN)1148 ($New Bag - Provider: Linda Walters RN)1217 (Auto Hold - Provider: Orders Generic Provider - Reason: Transfer to a procedural area)1551 (Unhold - Provider: Orders Generic Provider)1848 ($New Bag - Provider: Yunior Canales RN) 0041 ($New Bag - Provider: Tristan Bourgeois RN)0613 ($New Bag - Provider: Tristan Bourgeois RN)0815 (Auto Hold - Provider: Orders Generic Provider - Reason: Transfer to a procedural area)1230 (Automatically Held - Provider: Orders Generic Provider)1430 (Unhold - Provider: Orders Generic Provider) potassium chloride nicolasa ER (KLOR-CON M20) CR tablet 20 mEq 20 mEq, Oral, ONCE, On 05/28/24 at 1000, For 1 dose, Potassium level 3.5-3.8 mmol/L Ordered from the Potassium replacement order set. DO NOT CRUSH, Potassium Replacement: Potassium level 3.5-3.8 mmol/L, Recheck: Potassium level next AM 1000 (Canceled Entry - Provider: Orders Generic Provider - Comment: Automatically canceled at discontinue of medication order) potassium chloride nicolasa ER (KLOR-CON M20) CR tablet 40 mEq (COMPLETED) 40 mEq, Oral, ONCE, On Yara 05/26/24 at 0830, For 1 dose, Potassium level 3.1 - 3.4 mmol/L Ordered from the Potassium replacement order set. DO NOT CRUSH, Potassium Replacement: Potassium level 3.1-3.4 mmol/L, Recheck: Potassium level 4 hours AFTER last oral dose 0908 ($Given - Provider: Linda Walters, YASEMIN) sodium chloride (PF) 0.9% PF flush 3 mL 3 mL, Intracatheter, EVERY 8 HOURS, First dose on Thu05/25/24 at 2330, to lock peripheral IV dormant line 0044 ($Given - Provider: Anne Henderson RN)0730 (Not Given - Provider: Anne Henderson RN - Reason: IV Infusing)1217 (Auto Hold - Provider: Orders Generic Provider - Reason: Transfer to a procedural area)1530 (Automatically Held - Provider: Orders Generic Provider)1551 (Unhold - Provider: Orders Generic Provider)2243 (Not Given - Provider: Yunior Canales RN - Reason: IV Infusing) 0801 (Not Given - Provider: Linda Walters RN - Reason: IV Infusing)0815 (Auto Hold - Provider: Orders Generic Provider - Reason: Transfer to a procedural area)1430 (Unhold - Provider: Orders Generic Provider)1445 (Canceled Entry - Provider: Stone Hall RN)2225 ($Given - Provider: Yunior Canales RN)2330 (Canceled Entry - Provider: Yunior Canales RN) 0822 ($Given - Provider: Stone Hall RN) tamsulosin (FLOMAX) capsule 0.4 mg 0.4 mg, Oral, DAILY, First dose on Thu05/26/24 at 1630, Administer 30 minutes after the same meal each day. Capsules should be swallowed whole; do not crush chew or open. 1641 ($Given - Provider: Yunior Canales RN) 0815 (Auto Hold - Provider: Orders Generic Provider - Reason: Transfer to a procedural area)0900 (Automatically Held - Provider: Orders Generic Provider)1430 (Unhold - Provider: Orders Generic Provider) 0820 ($Given - Provider: Stone Hall RN) triamterene-HCTZ (MAXZIDE-25) 37.5-25 MG per tablet 1 tablet 1 tablet, Oral, EVERY MORNING, First dose on Thu05/27/24 at 0900, On hold since Thu05/26/2024 at 1605 until manually unheld 1605 (Held by provider - Provider: Dorita Thompson MD - Reason: Other) 0900 (Automatically Held) 0900 (Automatically Held)1326 (Unheld by provider - Provider: Orders Generic Provider) Continuous Medication Order 05/26/2024 05/27/2024 05/28/2024 lactated ringers infusion (CANCELED) at 75 mL/hr, Intravenous, CONTINUOUS, Starting on Thu05/25/24 at 2330, Until Thu05/26/24 at 1601 0044 ($New Bag - Provider: Anne A Wehrspann, RN)1210 (Rate/Dose Change - Provider: Linda Walters RN) lactated ringers infusion (CANCELED) at 10 mL/hr, Intravenous, CONTINUOUS, IF patient NOT on dialysis., Pre-procedure, Starting on Thu05/26/24 at 1230, Until Thu05/26/24 at 1453 1424 ($New Bag - Provider: Concepcion Rosado, CONTENT WRITER MULTIMEDIA TEACHER)1447 (Anesthesia Volume Adjustment - Provider: Jaja Hector, CONTENT WRITER MULTIMEDIA TEACHER) sodium chloride 0.9 % infusion (CANCELED) at 75 mL/hr, Intravenous, CONTINUOUS, Starting on Yara 05/26/24 at 1630, Until Yara 05/26/24 at 1657 1631 ($New Bag - Provider: Yunior Canales RN) sodium chloride 0.9 % infusion () at 75 mL/hr, Intravenous, CONTINUOUS, Please stop saline after this bag is completed due to supply shortage. , Starting on Thu05/26/24 at 1700, Until Thu05/27/24 at 0559 1716 (Rate/Dose Verify - Provider: Yunior Canales RN) 0602 (Stopped - Provider: Tristan Bourgeois RN) PRN Medication Order 05/26/2024 05/27/2024 05/28/2024 albuterol (PROVENTIL) neb solution 2.5 mg 2.5 mg, Nebulization, EVERY 2 HOURS PRN, shortness of breath, Starting on Thu05/26/24 at 1617 0815 (Auto Hold - Provider: Orders Generic Provider - Reason: Transfer to a procedural area)1430 (Unhold - Provider: Orders Generic Provider) BUPivacaine 0.5% - EPINEPHrine 1:200,000 (PF) injection (CANCELED) PRN, Starting on Thu05/27/24 at 1047, Intra-procedure 1047 ($Given - Provider: Kenneth Mayen MD) calcium carbonate (TUMS) chewable tablet 1,000 mg 1,000 mg, Oral, 4 TIMES DAILY PRN, heartburn, Starting on Thu05/25/24 at 2301 1217 (Auto Hold - Provider: Orders Generic Provider - Reason: Transfer to a procedural area)1551 (Unhold - Provider: Orders Generic Provider) 0815 (Auto Hold - Provider: Orders Generic Provider - Reason: Transfer to a procedural area)1430 (Unhold - Provider: Orders Generic Provider) hydrALAZINE (APRESOLINE) injection 10 mg(Linked Group 1) 10 mg, Intravenous, EVERY 4 HOURS PRN, high blood pressure, for systolic BP greater than 180 mmHg, Administer over 1 Minutes, Starting on Thu05/25/24 at 2306 1217 (Auto Hold - Provider: Orders Generic Provider - Reason: Transfer to a procedural area)1551 (Unhold - Provider: Orders Generic Provider) 0815 (Auto Hold - Provider: Orders Generic Provider - Reason: Transfer to a procedural area)1430 (Unhold - Provider: Orders Generic Provider) hydrALAZINE (APRESOLINE) injection 2.5-5 mg (CANCELED) 2.5-5 mg, Intravenous, EVERY 10 MIN PRN, other, for Systolic Blood Pressure greater than 160 mmHg, Administer over 1 Minutes, Starting on Thu05/27/24 at 1259, Max cumulative dose = 20 mg. FOR USE IN PACU ONLY., PACU 1313 ($Given - Provider: Layla Kee RN)1327 ($Given - Provider: Layla Kee RN) hydrALAZINE (APRESOLINE) tablet 10 mg(Linked Group 1) 10 mg, Oral, EVERY 4 HOURS PRN, high blood pressure, for systolic BP greater than 180 mmHg, Starting on Thu05/25/24 at 2306 1217 (Auto Hold - Provider: Orders Generic Provider - Reason: Transfer to a procedural area)1551 (Unhold - Provider: Orders Generic Provider) 0815 (Auto Hold - Provider: Orders Generic Provider - Reason: Transfer to a procedural area)1430 (Unhold - Provider: Orders Generic Provider) HYDROmorphone (DILAUDID) injection 0.2 mg 0.2 mg, Intravenous, EVERY 2 HOURS PRN, moderate pain, IF patient cannot take oral opioid OR IF pain not managed with non-pharmacological, non-opioid, or oral opioid interventions if ordered, Starting on Thu05/25/24 at 2306, May use concomitant with non-opioid analgesics. 1217 (Auto Hold - Provider: Orders Generic Provider - Reason: Transfer to a procedural area)1551 (Unhold - Provider: Orders Generic Provider) 0815 (Auto Hold - Provider: Orders Generic Provider - Reason: Transfer to a procedural area)1430 (Unhold - Provider: Orders Generic Provider) HYDROmorphone (DILAUDID) injection 0.4 mg 0.4 mg, Intravenous, EVERY 2 HOURS PRN, severe pain, IF patient cannot take oral opioid OR IF pain not managed with non-pharmacological, non-opioid, or oral opioid interventions if ordered, Starting on Thu05/25/24 at 2306, May use concomitant with non-opioid analgesics. 1217 (Auto Hold - Provider: Orders Generic Provider - Reason: Transfer to a procedural area)1551 (Unhold - Provider: Orders Generic Provider) 0815 (Auto Hold - Provider: Orders Generic Provider - Reason: Transfer to a procedural area)1430 (Unhold - Provider: Orders Generic Provider) iopamidol 61% (ISOVUE 300) 50 mL + NaCl 0.9% 50 mL (CANCELED) PRN, Starting on Yara 05/26/24 at 1445, Intra-procedure 1445 ($Given - Provider: Jefferson Gama MD) labetalol (NORMODYNE/TRANDATE) injection 10 mg (COMPLETED) 10 mg, Intravenous, ONCE PRN, other, for Systolic Blood Pressure greater than 160 mmHg while Heart Rate greater than 60 bpm, Starting on Thu05/27/24 at 1259, For 1 dose, For PACU USE ONLY., PACU 1338 ($Given - Provider: Layla Kee RN) lidocaine (LMX4) cream Topical, EVERY 1 HOUR PRN, pain, with VAD insertion, Starting on Thu05/25/24 at 2301, Apply at least 30 minutes prior to VAD insertion in divided doses as needed for size of site for insertion. MAX Dose: 2.5 g (?? of 5 g tube) Do NOT give if patient has a history of allergy to any local anesthetic or any bruce product. Do NOT use both lidocaine intradermal/subcutaneous injection and the lidocaine cream on the same site. 1217 (Auto Hold - Provider: Orders Generic Provider - Reason: Transfer to a procedural area)1551 (Unhold - Provider: Orders Generic Provider) 0815 (Auto Hold - Provider: Orders Generic Provider - Reason: Transfer to a procedural area)1430 (Unhold - Provider: Orders Generic Provider) lidocaine 1 % 0.1-1 mL 0.1-1 mL, Other, EVERY 1 HOUR PRN, mild pain with VAD insertion, Starting on Thu05/25/24 at 2301, MAX dose 1 mL subcutaneous OR intradermal along the side of the vein in divided doses as needed for VAD insertion. Do NOT give if patient has a history of allergy to any local anesthetic or any bruce product. Do NOT use both lidocaine intradermal/subcutaneous injection and the lidocaine cream on the same site. 1217 (Auto Hold - Provider: Orders Generic Provider - Reason: Transfer to a procedural area)1551 (Unhold - Provider: Orders Generic Provider) 0815 (Auto Hold - Provider: Orders Generic Provider - Reason: Transfer to a procedural area)1430 (Unhold - Provider: Orders Generic Provider) naloxone (NARCAN) injection 0.2 mg(Linked Group 2) 0.2 mg, Intravenous, EVERY 2 MIN PRN, opioid reversal, Starting on Yara 05/26/24 at 0019, Administer intravenous route when available and notify provider when administered. For unintended sedation or respiratory depression if all of the below criteria are met: ~ respiratory rate LESS than or EQUAL to 8. ~SaO2 less than 92% and or/end-tidal CO2 is greater than 50. ~ the patient is receiving an opioid, has unintended sedations assessed as RASS (-3), and is currently not on mechanical ventilation. RASS scale moderate (-3) is movement or eye opening to voice but no eye contact. Patient Monitoring Once the patient has demonstrated a response to the naloxone, continue to monitor respiratory rate, depth, oxygen saturation and end-tidal CO2 (if available) every 15 minutes x 2, then every 30 minutes x 2, then every 1 hour x 1 after each naloxone dose. Consider transfer to ICU if patient respiratory parameters have not improved after 4 naloxone doses. 1217 (Auto Hold - Provider: Orders Generic Provider - Reason: Transfer to a procedural area)1551 (Unhold - Provider: Orders Generic Provider) 0815 (Auto Hold - Provider: Orders Generic Provider - Reason: Transfer to a procedural area)1430 (Unhold - Provider: Orders Generic Provider) naloxone (NARCAN) injection 0.2 mg(Linked Group 2) 0.2 mg, Intramuscular, EVERY 2 MIN PRN, opioid reversal, Starting on Yara 05/26/24 at 0019, Administer intramuscular if an intravenous route is not available and notify provider when administered. For unintended sedation or respiratory depression if all of the below criteria are met: ~ respiratory rate LESS than or EQUAL to 8. ~SaO2 less than 92% and or/end-tidal CO2 is greater than 50. ~ the patient is receiving an opioid, has unintended sedations assessed as RASS (-3), and is currently not on mechanical ventilation. RASS scale moderate (-3) is movement or eye opening to voice but no eye contact. Patient Monitoring Once the patient has demonstrated a response to the naloxone, continue to monitor respiratory rate, depth, oxygen saturation and end-tidal CO2 (if available) every 15 minutes x 2, then every 30 minutes x 2, then every 1 hour x 1 after each naloxone dose. Consider transfer to ICU if patient respiratory parameters have not improved after 4 naloxone doses. 1217 (Auto Hold - Provider: Orders Generic Provider - Reason: Transfer to a procedural area)1551 (Unhold - Provider: Orders Generic Provider) 0815 (Auto Hold - Provider: Orders Generic Provider - Reason: Transfer to a procedural area)1430 (Unhold - Provider: Orders Generic Provider) naloxone (NARCAN) injection 0.4 mg(Linked Group 2) 0.4 mg, Intravenous, EVERY 2 MIN PRN, opioid reversal, Starting on Yara 05/26/24 at 0019, Administer intravenous route when available and notify provider when administered. For unintended sedation or respiratory depression if all of the below criteria are met: ~ respiratory rate LESS than or EQUAL to 8. ~ SaO2 less than 92% and or/end-tidal CO2 is greater than 50. ~ the patient is receiving an opioid, has unintended sedation assessed as RASS (-4) or (-5) and patient is currently not on mechanical ventilation. RASS scale (-4) is deep sedation with no response to voice but movement or eye opening to physical stimulation. RASS scale (-5) is unarousable. Patient Monitoring Once the patient has demonstrated a response to the naloxone, continue to monitor respiratory rate, depth, oxygen saturation and end-tidal CO2 (if available) every 15 minutes x 2, then every 30 minutes x 2, then every 1 hour x 1 after each naloxone dose. Consider transfer to ICU if patient respiratory parameters have not improved after 4 naloxone doses. 1217 (Auto Hold - Provider: Orders Generic Provider - Reason: Transfer to a procedural area)1551 (Unhold - Provider: Orders Generic Provider) 0815 (Auto Hold - Provider: Orders Generic Provider - Reason: Transfer to a procedural area)1430 (Unhold - Provider: Orders Generic Provider) naloxone (NARCAN) injection 0.4 mg(Linked Group 2) 0.4 mg, Intramuscular, EVERY 2 MIN PRN, opioid reversal, Starting on Yara 05/26/24 at 0019, Administer intramuscular if an intravenous route is not available and notify provider when administered. For unintended sedation or respiratory depression if all of the below criteria are met: ~ respiratory rate LESS than or EQUAL to 8. ~ SaO2 less than 92% and or/end-tidal CO2 is greater than 50. ~ the patient is receiving an opioid, has unintended sedation assessed as RASS (-4) or (-5) and patient is currently not on mechanical ventilation. RASS scale (-4) is deep sedation with no response to voice but movement or eye opening to physical stimulation. RASS scale (-5) is unarousable. Patient Monitoring Once the patient has demonstrated a response to the naloxone, continue to monitor respiratory rate, depth, oxygen saturation and end-tidal CO2 (if available) every 15 minutes x 2, then every 30 minutes x 2, then every 1 hour x 1 after each naloxone dose. Consider transfer to ICU if patient respiratory parameters have not improved after 4 naloxone doses. 1217 (Auto Hold - Provider: Orders Generic Provider - Reason: Transfer to a procedural area)1551 (Unhold - Provider: Orders Generic Provider) 0815 (Auto Hold - Provider: Orders Generic Provider - Reason: Transfer to a procedural area)1430 (Unhold - Provider: Orders Generic Provider) ondansetron (ZOFRAN ODT) ODT tab 4 mg(Linked Group 3) 4 mg, Oral, EVERY 6 HOURS PRN, nausea, vomiting, Starting on Thu05/25/24 at 2306, This is Step 1 of nausea and vomiting management. If nausea not resolved in 15 minutes, go to Step 2 prochlorperazine (COMPAZINE). With dry hands, peel back foil backing and gently remove tablet. Do not push oral disintegrating tablet through foil backing. Administer immediately on tongue and oral disintegrating tablet dissolves in seconds, then swallow with saliva. Liquid not required. 1217 (Auto Hold - Provider: Orders Generic Provider - Reason: Transfer to a procedural area)1551 (Unhold - Provider: Orders Generic Provider) 0815 (Auto Hold - Provider: Orders Generic Provider - Reason: Transfer to a procedural area)1430 (Unhold - Provider: Orders Generic Provider) ondansetron (ZOFRAN ODT) ODT tab 4 mg(Linked Group 4) 4 mg, Oral, EVERY 6 HOURS PRN, nausea, vomiting, Starting on Yara 05/26/24 at 1501, This is Step 1 of nausea and vomiting management. If nausea not resolved in 15 minutes, go to Step 2 prochlorperazine (COMPAZINE). Do not push through foil backing. Peel back foil and gently remove. Place on tongue immediately. Administration with liquid unnecessary With dry hands, peel back foil backing and gently remove tablet. Do not push oral disintegrating tablet through foil backing. Administer immediately on tongue and oral disintegrating tablet dissolves in seconds, then swallow with saliva. Liquid not required. 0815 (Auto Hold - Provider: Orders Generic Provider - Reason: Transfer to a procedural area)1430 (Unhold - Provider: Orders Generic Provider) ondansetron (ZOFRAN) injection 4 mg(Linked Group 3) 4 mg, Intravenous, EVERY 6 HOURS PRN, nausea, vomiting, Administer over 2-5 Minutes, Starting on Thu05/25/24 at 2306, Give IF patient unable to tolerate oral medication. This is Step 1 of nausea and vomiting management. If nausea not resolved in 15 minutes, go to Step 2 prochlorperazine (COMPAZINE). 1217 (Auto Hold - Provider: Orders Generic Provider - Reason: Transfer to a procedural area)1551 (Unhold - Provider: Orders Generic Provider) 0815 (Auto Hold - Provider: Orders Generic Provider - Reason: Transfer to a procedural area)1430 (Unhold - Provider: Orders Generic Provider) ondansetron (ZOFRAN) injection 4 mg(Linked Group 4) 4 mg, Intravenous, EVERY 6 HOURS PRN, nausea, vomiting, Administer over 2-5 Minutes, Starting on Yara 05/26/24 at 1501, This is Step 1 of nausea and vomiting management. If nausea not resolved in 15 minutes, go to Step 2 prochlorperazine (COMPAZINE). 0815 (Auto Hold - Provider: Orders Generic Provider - Reason: Transfer to a procedural area)1430 (Unhold - Provider: Orders Generic Provider) oxyCODONE (ROXICODONE) tablet 5 mg 5 mg, Oral, EVERY 4 HOURS PRN, severe pain, IF pain not managed with non-pharmacological and non-opioid interventions, Starting on Thu05/25/24 at 2306, May use concomitant with non-opioid analgesics. 1217 (Auto Hold - Provider: Orders Generic Provider - Reason: Transfer to a procedural area)1551 (Unhold - Provider: Orders Generic Provider) 0605 ($Given - Provider: Tristan Bourgeois, YASEMIN)0815 (Auto Hold - Provider: Orders Generic Provider - Reason: Transfer to a procedural area)1430 (Unhold - Provider: Orders Generic Provider) oxyCODONE IR (ROXICODONE) half-tab 2.5 mg 2.5 mg, Oral, EVERY 4 HOURS PRN, moderate pain, IF pain not managed with non-pharmacological and non-opioid interventions, Starting on Thu05/25/24 at 2306, May use concomitant with non-opioid analgesics. 1217 (Auto Hold - Provider: Orders Generic Provider - Reason: Transfer to a procedural area)1551 (Unhold - Provider: Orders Generic Provider)1641 ($Given - Provider: Yunior Canales RN) 0815 (Auto Hold - Provider: Orders Generic Provider - Reason: Transfer to a procedural area)1430 (Unhold - Provider: Orders Generic Provider) senna-docusate (SENOKOT-S/PERICOLACE) 8.6-50 MG per tablet 1 tablet(Linked Group 5) 1 tablet, Oral, 2 TIMES DAILY PRN, constipation, Starting on Thu05/25/24 at 2301, If no bowel movement in 24 hours, increase to 2 tablets by mouth. IF more than 1 constipation PRN medication is ordered, administer step-ford as indicated, moving to the next step ONLY if prior step ineffective. Step 1: senna-docusate (SENOKOT-S; PERICOLACE) OR bisacodyl (DULCOLAX) EC tablet Step 2: polyethylene glycol (MIRALAX/GLYCOLAX) Step 3: bisacodyl (DULCOLAX) suppository Step 4: enema Hold for loose stools. 1217 (Auto Hold - Provider: Orders Generic Provider - Reason: Transfer to a procedural area)1551 (Unhold - Provider: Orders Generic Provider) 0815 (Auto Hold - Provider: Orders Generic Provider - Reason: Transfer to a procedural area)1430 (Unhold - Provider: Orders Generic Provider) senna-docusate (SENOKOT-S/PERICOLACE) 8.6-50 MG per tablet 2 tablet(Linked Group 5) 2 tablet, Oral, 2 TIMES DAILY PRN, constipation, Starting on Thu05/25/24 at 2301, IF more than 1 constipation PRN medication is ordered, administer step-ford as indicated, moving to the next step ONLY if prior step ineffective. Step 1: senna-docusate (SENOKOT-S; PERICOLACE) OR bisacodyl (DULCOLAX) EC tablet Step 2: polyethylene glycol (MIRALAX/GLYCOLAX) Step 3: bisacodyl (DULCOLAX) suppository Step 4: enema Hold for loose stools. 1217 (Auto Hold - Provider: Orders Generic Provider - Reason: Transfer to a procedural area)1551 (Unhold - Provider: Orders Generic Provider) 0815 (Auto Hold - Provider: Orders Generic Provider - Reason: Transfer to a procedural area)1430 (Unhold - Provider: Orders Generic Provider) sodium chloride (PF) 0.9% PF flush 3 mL 3 mL, Intracatheter, EVERY 1 MIN PRN, line flush, other, to ensure patency or to lock dormant line, Starting on Thu05/25/24 at 2301 1217 (Auto Hold - Provider: Orders Generic Provider - Reason: Transfer to a procedural area)1551 (Unhold - Provider: Orders Generic Provider) 0815 (Auto Hold - Provider: Orders Generic Provider - Reason: Transfer to a procedural area)1430 (Unhold - Provider: Orders Generic Provider) sodium chloride 0.9% irrigation (bag) (CANCELED) PRN, Starting on Thu05/27/24 at 1154, Intra-procedure 1154 ($Given - Provider: Kenneth Mayen MD) Linked Groups Order Group 1: hydrALAZINE (APRESOLINE) tablet 10 mgJump to med 10 mg, Oral, EVERY 4 HOURS PRN, high blood pressure, for systolic BP greater than 180 mmHg, Starting on Thu05/25/24 at 2306 Or hydrALAZINE (APRESOLINE) injection 10 mgJump to med 10 mg, Intravenous, EVERY 4 HOURS PRN, high blood pressure, for systolic BP greater than 180 mmHg, Administer over 1 Minutes, Starting on Thu05/25/24 at 2306 Group 2: naloxone (NARCAN) injection 0.2 mgJump to med 0.2 mg, Intravenous, EVERY 2 MIN PRN, opioid reversal, Starting on Thu05/26/24 at 0019, Administer intravenous route when available and notify provider when administered. For unintended sedation or respiratory depression if all of the below criteria are met: ~ respiratory rate LESS than or EQUAL to 8. ~SaO2 less than 92% and or/end-tidal CO2 is greater than 50. ~ the patient is receiving an opioid, has unintended sedations assessed as RASS (-3), and is currently not on mechanical ventilation. RASS scale moderate (-3) is movement or eye opening to voice but no eye contact. Patient Monitoring Once the patient has demonstrated a response to the naloxone, continue to monitor respiratory rate, depth, oxygen saturation and end-tidal CO2 (if available) every 15 minutes x 2, then every 30 minutes x 2, then every 1 hour x 1 after each naloxone dose. Consider transfer to ICU if patient respiratory parameters have not improved after 4 naloxone doses. Or naloxone (NARCAN) injection 0.4 mgJump to med 0.4 mg, Intravenous, EVERY 2 MIN PRN, opioid reversal, Starting on Thu05/26/24 at 0019, Administer intravenous route when available and notify provider when administered. For unintended sedation or respiratory depression if all of the below criteria are met: ~ respiratory rate LESS than or EQUAL to 8. ~ SaO2 less than 92% and or/end-tidal CO2 is greater than 50. ~ the patient is receiving an opioid, has unintended sedation assessed as RASS (-4) or (-5) and patient is currently not on mechanical ventilation. RASS scale (-4) is deep sedation with no response to voice but movement or eye opening to physical stimulation. RASS scale (-5) is unarousable. Patient Monitoring Once the patient has demonstrated a response to the naloxone, continue to monitor respiratory rate, depth, oxygen saturation and end-tidal CO2 (if available) every 15 minutes x 2, then every 30 minutes x 2, then every 1 hour x 1 after each naloxone dose. Consider transfer to ICU if patient respiratory parameters have not improved after 4 naloxone doses. Or naloxone (NARCAN) injection 0.2 mgJump to med 0.2 mg, Intramuscular, EVERY 2 MIN PRN, opioid reversal, Starting on Thu05/26/24 at 0019, Administer intramuscular if an intravenous route is not available and notify provider when administered. For unintended sedation or respiratory depression if all of the below criteria are met: ~ respiratory rate LESS than or EQUAL to 8. ~SaO2 less than 92% and or/end-tidal CO2 is greater than 50. ~ the patient is receiving an opioid, has unintended sedations assessed as RASS (-3), and is currently not on mechanical ventilation. RASS scale moderate (-3) is movement or eye opening to voice but no eye contact. Patient Monitoring Once the patient has demonstrated a response to the naloxone, continue to monitor respiratory rate, depth, oxygen saturation and end-tidal CO2 (if available) every 15 minutes x 2, then every 30 minutes x 2, then every 1 hour x 1 after each naloxone dose. Consider transfer to ICU if patient respiratory parameters have not improved after 4 naloxone doses. Or naloxone (NARCAN) injection 0.4 mgJump to med 0.4 mg, Intramuscular, EVERY 2 MIN PRN, opioid reversal, Starting on Thu05/26/24 at 0019, Administer intramuscular if an intravenous route is not available and notify provider when administered. For unintended sedation or respiratory depression if all of the below criteria are met: ~ respiratory rate LESS than or EQUAL to 8. ~ SaO2 less than 92% and or/end-tidal CO2 is greater than 50. ~ the patient is receiving an opioid, has unintended sedation assessed as RASS (-4) or (-5) and patient is currently not on mechanical ventilation. RASS scale (-4) is deep sedation with no response to voice but movement or eye opening to physical stimulation. RASS scale (-5) is unarousable. Patient Monitoring Once the patient has demonstrated a response to the naloxone, continue to monitor respiratory rate, depth, oxygen saturation and end-tidal CO2 (if available) every 15 minutes x 2, then every 30 minutes x 2, then every 1 hour x 1 after each naloxone dose. Consider transfer to ICU if patient respiratory parameters have not improved after 4 naloxone doses. Group 3: ondansetron (ZOFRAN ODT) ODT tab 4 mgJump to med 4 mg, Oral, EVERY 6 HOURS PRN, nausea, vomiting, Starting on Thu05/25/24 at 2306, This is Step 1 of nausea and vomiting management. If nausea not resolved in 15 minutes, go to Step 2 prochlorperazine (COMPAZINE). With dry hands, peel back foil backing and gently remove tablet. Do not push oral disintegrating tablet through foil backing. Administer immediately on tongue and oral disintegrating tablet dissolves in seconds, then swallow with saliva. Liquid not required. Or ondansetron (ZOFRAN) injection 4 mgJump to med 4 mg, Intravenous, EVERY 6 HOURS PRN, nausea, vomiting, Administer over 2-5 Minutes, Starting on Thu05/25/24 at 2306, Give IF patient unable to tolerate oral medication. This is Step 1 of nausea and vomiting management. If nausea not resolved in 15 minutes, go to Step 2 prochlorperazine (COMPAZINE). Group 4: ondansetron (ZOFRAN ODT) ODT tab 4 mgJump to med 4 mg, Oral, EVERY 6 HOURS PRN, nausea, vomiting, Starting on Yara 05/26/24 at 1501, This is Step 1 of nausea and vomiting management. If nausea not resolved in 15 minutes, go to Step 2 prochlorperazine (COMPAZINE). Do not push through foil backing. Peel back foil and gently remove. Place on tongue immediately. Administration with liquid unnecessary With dry hands, peel back foil backing and gently remove tablet. Do not push oral disintegrating tablet through foil backing. Administer immediately on tongue and oral disintegrating tablet dissolves in seconds, then swallow with saliva. Liquid not required. Or ondansetron (ZOFRAN) injection 4 mgJump to med 4 mg, Intravenous, EVERY 6 HOURS PRN, nausea, vomiting, Administer over 2-5 Minutes, Starting on Yara 05/26/24 at 1501, This is Step 1 of nausea and vomiting management. If nausea not resolved in 15 minutes, go to Step 2 prochlorperazine (COMPAZINE). Group 5: senna-docusate (SENOKOT-S/PERICOLACE) 8.6-50 MG per tablet 1 tabletJump to med 1 tablet, Oral, 2 TIMES DAILY PRN, constipation, Starting on Thu05/25/24 at 2301, If no bowel movement in 24 hours, increase to 2 tablets by mouth. IF more than 1 constipation PRN medication is ordered, administer step-ford as indicated, moving to the next step ONLY if prior step ineffective. Step 1: senna-docusate (SENOKOT-S; PERICOLACE) OR bisacodyl (DULCOLAX) EC tablet Step 2: polyethylene glycol (MIRALAX/GLYCOLAX) Step 3: bisacodyl (DULCOLAX) suppository Step 4: enema Hold for loose stools. Or senna-docusate (SENOKOT-S/PERICOLACE) 8.6-50 MG per tablet 2 tabletJump to med 2 tablet, Oral, 2 TIMES DAILY PRN, constipation, Starting on Thu05/25/24 at 2301, IF more than 1 constipation PRN medication is ordered, administer step-ford as indicated, moving to the next step ONLY if prior step ineffective. Step 1: senna-docusate (SENOKOT-S; PERICOLACE) OR bisacodyl (DULCOLAX) EC tablet Step 2: polyethylene glycol (MIRALAX/GLYCOLAX) Step 3: bisacodyl (DULCOLAX) suppository Step 4: enema Hold for loose stools. 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
--- OUTSIDE RECORDS SUMMARY | 2024-05-29 14:15 | XMS_ITS | Encounter Summary ---
Author Organization [place] Address [facility] [place] [address] Care Team Providers Care Amphibious Operations Officer Name Role Phone Dustin Victor MD Primary Care Provider [phone] Reason for Visit * Auth/Cert (Routine) Specialty Diagnoses / Procedures Referred By Juice t Referred To Contact Med Surg Diagnoses Choledocolithiasis and cholecysitis Choledocholithiasis with obstruction 5 Medical Surgical [address] [place] [address] Referral ID Status Reason Start Date Expiration Date Visits Re quested Visits Authorized [id number] 1 1 Encounter Details Date Type Department Care Team (Latest Contact Info) Description 05/25/2024 9:34 PM CDT - 05/28/2024 11:26 AM CDT Hospital Encounter [facility] 5 Medical Surgical [address] [place] [address] Seth Rios MD [address] [place], [place] [id number] Sulaiman Wan MD [address] [place] [address] Calculus of bile duct with acute cholecystitis and obstruction (Primary Dx); Cholangitis (H); Duodenal ulcer without hemorrhage or perforation and without obstruction Discharge Disposition: Home or Self Care Social History Tobacco Use Types Packs/Day Years Used Date Smoking Tobacco: Former Cigarettes 2 1965 Tobacco Cessation:Counseling Given: Not Answered Adolescent [...] in an abandoned building, in an overnight care home, or couch-surfing.) Yes 05/25/2024 Are you [...] Thompson MD - 05/28/2024 10:41 AM CDT [facility] Hospitalist Discharge Summary Date of Admission: 05/25/2024 [...] hypertension, hyperlipidemia, and obesity who presented to [facility] from outside hospital on 05/25/2024 with [...] mild biliary dilation. Patient subsequently transferred from [facility] for ERCP. Patient was empirically started on zosyn. Patient underwent stone extraction on 05/26 and eventually cholecystectomy on 05/27. Diet was advanced as tolerated. -S/P IV zosyn 05-26 to 05/27 -start PO Augmentin 875 mg [...] minutes discharging this patient. Dorita Thompson MD [place] [address] MEDICAL SURGICAL [address] [facility] [address] Physical Exam Vital Signs: Temp: 97.9 ??F [...] -- -- 12 -- -- -- 15 PRASANNA 8.3* -- -- -- 8.6* -- -- -- 8.5* GLC 126* -- -- -- 112* -- 124* -- 124* < > = values in this interval not displayed. Most Recent 2 LFT's: Recent Labs Lab Test 05/28/2451 05/27/2425 AST 200* 315* ALT 229* 297* [...] tablet Take 1 tablet by mouth daily. [place]-3 Fatty Acids (FISH OIL) 1200 MG capsule [...] to be seen, please call us at [phone]. We are located at: [address] [facility] [address] [facility], [address]; [place] [address] INCISIONAL CARE: Replace the bandage over your [...] discuss with the nurse or physician assistant dean. # There is a surgeon FOOD SERVICE REPRESENTATIVE on weekday evenings and over the weekend [...] Take 1 tablet by mouth daily. 01/11/2024 [place]-3 Fatty Acids (FISH OIL) 1200 MG capsule [...] Osorio PA-C - 05/28/2024 9:26 AM CDT [facility] General Surgery Progress Note Assessment and [...] Data: Recent Labs Lab 05/28/24 0651 05/27/24 0605/26/24 0649 WBC 12.1* 10.1 9.7 HGB 12.1* [...] -- -- 72 -- -- -- 62 PRASANNA 8.3* -- -- -- 8.6* -- -- [...] not displayed. Barb Osorio PA-C Text page: [phone] 8 am to 4 pm After 4 pm, call * Dorita Thompson MD - 05/27/2024 7:52 PM CDT [facility] Medicine Progress Note - Hospitalist Service Date of Admission: 05/25/2024 Assessment & Plan Car Calvert is a 74 year old male with past medical history significant for interstitial lung disease, hypertension, hyperlipidemia, and obesity who presented to [facility] from outside hospital on 05/25/2024 with [...] mild biliary dilation. Patient subsequently transferred from [facility] for possible ERCP . Patient underwent stone [...] Anticipated tomorrow Dorita Thompson MD Hospitalist Service [facility] Securely message with [employer] (more info) Text page via [facility] Paging/Directory Interval History No acute events overnight. [...] - 05/27/2024 2:24 PM CDT Spoke with SAMARA about elevated BP's. They are ok with pt returning to the floor. Stone HAZEL notified. * Linda Mclean MD - 05/27/2024 1:32 PM CDT [...] surg), Dr. Gama (GI). Dannie Simmons MD [facility] consultants Office: [phone] Interval History: No acute events overnight Na [...] tablet 1 tablet Oral Dorita Watkins MD Allergies Allergen Reactions Lisinopril Physical Exam: [...] awakens to voice, oriented, normal speech Data: BMP Recent Labs Lab 05/27/24 0625 05/27/24 0100 05/26/24 1743 05/26/24 1226 05/26/24 1204 05/26/24 0649 NA 123* 123* 127* 123* -- 122* 121* POTASSIUM 3.3* -- -- -- 3.3* 3.1* CHLORIDE 91* -- -- -- -- 87* PRASANNA 8.6* -- -- -- -- 8.5* CO2 [...] medications, labs and imaging. Dannie Simmons MD [facility] Consultants - Nephrology Office: [phone] * Dorita Thompson MD - 05/26/2024 4:03 PM CDT [facility] Medicine Progress Note - Hospitalist Service Date of Admission: 05/25/2024 Assessment & Plan Car Cavlert is a 74 year old male with past medical history significant for interstitial lung disease, hypertension, hyperlipidemia, and obesity who presented to [facility] from outside hospital on 05/25/2024 with [...] mild biliary dilation. Patient subsequently transferred from [facility] for possible ERCP -GI consulted, appreciate recommendations. Status post ERCP, no report available to review at the time of writing this note -GS consulted -continue zosyn 3.375mg Q6H IV -Pain control and antiemetics PRN -Normal saline at 75 mL/h Hyponatremia Na 123 at OSH. Started on mIVF. Rechecking sodium on admission to [facility] and will continues fluids forgoal correction to [...] 2-4 Days Dorita Thompson MD Hospitalist Service [facility] Securely message with [employer] (more info) Text page via [facility] Paging/Directory Interval History No acute events overnight. [...] PAST 24 HR DATA REVIEWED * Stone Hall RN - 05/25/2024 11:46 PM CDT 05/25/24 2200 Skin Skin WDL WDL Device Skin Interventions Taken No adjustments needed Admission/Transfer from: [facility] ED 2 RN skin assessment completed. Yes Significant findings include: None LDA added (if applicable)? Not Applicable Requested [facility] Nurse Consult from ? Not Applicable Stone Hall RN documented in this encounter H&P Notes * Sulaiman Wan MD - 05/25/2024 11:18 PM CDT [facility] History and Physical - Hospitalist Service Date of Admission: 05/25/2024 Assessment & Plan Car Calvert is a 74 year old male with past medical history significant for interstitial lung disease, hypertension, hyperlipidemia, and obesity who presented to [facility] from outside hospital on 05/25/2024 with [...] mild biliary dilation. Patient subsequently transferred from [facility] for possible ERCP tomorrow. Of note, this was apparently confirmed with GI that it could be [facility]at [facility] prior to patient being transferred. Will continue antibiotics overnightto make patient NPO with anticipation of procedure tomorrow. -GI consulted, appreciate recommendations -Likely ERCP tomorrow -NPO @ 0000 -zosyn 3.375mg Q6H IV -Pain control and antiemetics PRN Hyponatremia Na 123 at OSH. Started on mIVF. Rechecking sodium on admission to [facility] and will continues fluids forgoal correction to [...] 2-4 Days Sulaiman Wan MD Hospitalist Service [facility] Securely message with [employer] (more info) Text page via [facility] Paging/Directory Chief Complaint Abdominal pain History is obtained from the patient History of Present Illness Car Calvert is a 74 year old male with past medical history significant for interstitial lung disease, hypertension, hyperlipidemia, and obesity who presented to [facility] from outside hospital on 05/25/2024 with [...] of drink. He presented earlier today to [facility] emergency department. Laboratory studies revealed a mild [...] physician reportedly discussed with general surgery at [facility], who stated that the patient should be transferred for ERCP as it could not be performed at that location. He was provided with Zosyn + fluids prior to transfer. Patient was subsequently transferred to [facility] where he is thus far been [...] documented in this encounter Consult Notes * Kenneth Mayen MD - 05/27/2024 10:15 AM CDTAssociated [...] 74 year old male who presented to [facility] ED two days ago with right upper [...] BID Dorita Thompson MD 25 mg at 10/03/24 2056 [Auto Hold] naloxone (NARCAN) injection 0.2 mg [...] 5 mg 5 mg Oral Q4H PRN Sulaiman Wan MD 5 mg at 05/27/24 0605 [...] 1 tablet Oral QAM Dorita Thompson MD Review of Systems: The 10 point [...] 5:08 PM CDTAssociated Order(s): NEPHROLOGY IP CONSULT [facility] Nephrology Consultation Date of Admission: 05/25/2024 Assessment [...] On empiric abx. Reviewed notes from Dr. Thompson/Suliaman Wan (hospitalist), Dr. Gama (GI). Dannie Simmons MD [facility] Consultants - Nephrology [phone] Reason for Consult I was asked to [...] with obstructing 3mm CBD stone. Transferred to [facility] for ERCP and further treatment. Given [...] Sig: Take 81 mg by mouth daily. [place]-3 Fatty Acids (FISH OIL) 1200 MG capsule [...] 3.1* -- CHLORIDE -- -- 87* -- PRASANNA -- -- 8.5* -- CO2 -- -- [...] PROTEIN, UROBILINOGEN, NITRITE, LEUKEST Dannie Simmons MD [facility] Consultants - Nephrology [phone] * Jefferson Gama MD - 05/26/2024 9:11 AM CDTAssociated Order(s): GASTROENTEROLOGY IP CONSULT Images from the original note were not included. GASTROENTEROLOGY CONSULTATION Car Calvert [address] [facility] [address] 74 year old male Admission Date/Time: 05/25/2024 Primary Care Provider: Dustin Victor Referring / Attending Physician: Dr. Wan We were asked to see the patient in consultation by Dr. Wan for evaluation of choledocholithiasis. HPI: Car Calvert is a 74 year old male with medical history of hypertension, hyperlipidemia, kidney stones, interstitial lung disease, who was transferred from [facility] with acute abdominal pain found to have [...] daily. 01/11/24 Yes Unknown, Entered By History [place]-3 Fatty Acids (FISH OIL) 1200 MG capsule [...] ALT 208* AST 90* IMAGING / ENDOSCOPY [facility] per report. I am unable to view these currently. CONSULTATION ASSESSMENT AND PLAN: Car Calvert is a 74 year old with medical history of hypertension, hyperlipidemia, kidney stones, interstitial lung disease, who was transferred from [facility] with acute abdominal pain found to have MRCP evidence of cholelithiasis, and choledocholithiasis. 1. Choledocholithiasis: As evidenced on MRCP with a 3 mm stone in the CBD. He is currently afebrile. LFTs have mildly improved. He continues on antibiotics. Abdominal pain is improving. Plan for [facility]CPthis afternoon here at [facility]. General surgery consult for discussion of [...] patient evaluation, reviewing documentation/ test results, and surgical orderly. Chelita Flynn PA-C [facility] ( [facility]) [facility] note Patient seen and examined. Chart reviewed. [...] by surgery for cholecystectomy. Jefferson Gama MD [facility] 20 minutes spent documented in this encounter Miscellaneous Notes * Plan of Care - Blayne Montanez RN - 05/28/2024 6:17 AM CDT For vital signs and complete assessments, please see documentation flowsheets. [id number] Pertinent assessments: Pt A&Ox4. On RA. Afebrile. [...] Manage Fall Risk Recent Flowsheet Documentation Taken 05/28/2024132 by Blayne Montanez RN Safety Promotion/Fall Prevention: nonskid shoes/slippers when [...] Documentation Taken 05/28/2024132 by Blayne Montanez RN Medication Review/Management: medications reviewed Goal Outcome [...] shift note. Outcome: Progressing Flowsheets (Taken 05/27/2024 5258) Outcome Evaluation: Discharge pending. Plan of Care [...] Fall Risk Recent Flowsheet Documentation Taken 05/27/2024 1607 by Yunior Canales RN Safety Promotion/Fall Prevention: nonskid shoes/slippers when out of bed patient and family education safety round/check completed treat reversible contributory factors Intervention: Prevent Skin Injury Recent Flowsheet Documentation Taken 05/27/2024 1607 by Yunior Canales RN Body Position: position changed independently Intervention: Prevent and Manage VTE (Venous Thromboembolism) Risk Recent Flowsheet Documentation Taken 05/27/2024 1607 by Yunior Canales RN VTE Prevention/Management: SCDs off (sequential compression devices) Intervention: Prevent Infection Recent Flowsheet Documentation Taken 05/27/2024 1607 by Yunior Canales RN Infection Prevention: cohorting [...] Pertinent assessments: Assumed care of pt from [phone]. POD #1 from ERCP, POD #0 from [...] Manage Fall Risk Recent Flowsheet Documentation Taken 05/27/20241449 by Stone Hall RN Safety Promotion/Fall Prevention: [...] Mayen MD - 05/27/2024 12:37 PM CDT [facility] Brief Operative Note Pre-operative diagnosis: Cholecystitis [K81.9] [...] Mayen MD - 05/27/2024 10:41 AM CDT [facility] General Surgery Operative Note Pre-operative diagnosis: choledocholithiasis Post-operative diagnosis: same Procedure: laparoscopic cholecystectomy with modifer 22 - approximately 1 hour of additional time to complete the case due to a chronically inflamed, scarred, and contracted gallbladder Surgeon: Kenneth Mayen MD Wet Process Technician(s): Barb Osorio PA-C The Physician Wet Process Technician was medically necessary for their expertise in [...] gained in the left upper quadrant at [facility] with a 5mm 0 degree laparscopic with [...] documentation flowsheets. Pertinent assessments: Assumed care @ [phone]. POD #01 from ERCP. Pain controlled with oxycodone,given x 1. denies nausea and SOB. Afebrile, VSS. A&Ox4. Afebrile. On room air. IV fluids infusing. Tolerating clear liquids. Telemetry Major Shift Events: NPO midnight. Treatment Plan: NPO at [facility], cholecystectomy with Gen Surg, IV fluids, trend [...] shift note. Outcome: Progressing Flowsheets (Taken 05/27/2024 0616) Outcome Evaluation: NPO midnight for cholecystectomy scheduled [...] to clear liquids. Treatment Plan: NPO at [facility], cholecystectomy with Gen Surg, IV fluids, trend [...] shift note. Outcome: Progressing Flowsheets (Taken 05/26/2024 4500) Outcome Evaluation: Probable cholecystectomy with Gen Surg [...] Fall Risk Recent Flowsheet Documentation Taken 05/26/2024 164 by Yunior Canales RN Safety Promotion/Fall Prevention: activity supervised clutter free environment maintained increase visualization of patient lighting adjusted nonskid shoes/slippers when out of bed patient and family education room near nurse's station safety round/check completed supervised activity treat reversible contributory factors Intervention: Prevent Skin Injury Recent Flowsheet Documentation Taken 05/26/2024 164 by Yunior Canales RN Body Position: position changed independently Intervention: Prevent and Manage VTE (Venous Thromboembolism) Risk Recent Flowsheet Documentation Taken 05/26/2024 164 by Yunior Canales RN VTE Prevention/Management: SCDs off (sequential compression devices) Intervention: Prevent Infection Recent Flowsheet Documentation Taken 05/26/2024 1641 by Yunior Canales RN Infection Prevention: cohorting utilized hand hygiene promoted rest/sleep promoted single patient room provided Goal: Optimal Comfort and Wellbeing Outcome: Progressing Intervention: Monitor Pain and Promote Comfort Recent Flowsheet Documentation Taken 05/26/2024 1641 by Yunior Canales RN Pain Management Interventions: [...] Documentation Taken 05/26/2024 1000 by Linda Walters refinery operator helper cracking unit Review/Management: medications reviewed Goal Outcome Evaluation: Plan [...] and CareEverywhere/SureScripts via in-person Changes made to COMMERCIAL PEST CONTROL TECHNICIAN medication list: Added: All Deleted: None Changed: None Allergies reviewed with patient and updates made in EHR: yes Medication History Completed By: Moses Carson RPH 05/26/2024 8:48 AM COMMERCIAL PEST CONTROL TECHNICIAN Med List Medication Sig Last Dose amLODIPine [...] Take 1 tablet by mouth daily. 05/23/2024 [place]-3 Fatty Acids (FISH OIL) 1200 MG capsule [...] see documentation flowsheets. Pertinent assessments: Care assumed 2768-1293. A&O x4. Able to correctly answer questions [...] probably ERCP today. Tele runningST 130's per telephone triage nurse. Pt also constantly pulling tele leads off [...] shift note. Outcome: Progressing Flowsheets (Taken 05/25/2024 6286) Outcome Evaluation: up to floor at 2130, [...] Manage Fall Risk Recent Flowsheet Documentation Taken 05/25/20240 by Stone Hall RN Safety Promotion/Fall Prevention: [...] Documentation Taken 05/25/20242199 by Stone Hall RN Medication Review/Management: medications reviewed documented in this encounter [...] Routine 05/28/2024 6:51 AM CDT SODIUM Timed 05/27/2024 [...] RANDOM URINE STAT 05/26/2024 5:17 PM CDT OSMOLALITY, RANDOM URINE STAT 024 [...] WITH PLATELETS Routine 05/26/2024 6:49 AM CDT SODIUM Timed 05/26/2024 12:23 AM CDT documented in this encounter Results * Magnesium (05/28/2024 6:51 AM CDT) Magnesium 2.3 1.7 - 2.3 mg/dL 05/28/2024 7:52 AM CDT [facility] Blood BLOOD SPECIMEN / Unknown Venipuncture / Unknown 05/28/2024 6:51 AM CDT 05/28/2024 7:02 AM CDT Seth Rios MD LAB - BLOOD ORDER MELYSSA [facility] Acute Care Lab [address] [facility] [address] [facility] Lab (1st floor, no room number) [place] [address], [facility] * (ABNORMAL) Sodium (05/28/2024 6:51 AM CDT) Sodium 131(L) 135 - 145 mmol/L 05/28/2024 7:27 AM CDT LABORATORY Blood BLOOD SPECIMEN / Unknown Venipuncture / Unknown 05/28/2024 6:51 AM CDT 05/28/2024 7:02 AM CDT Kenneth Mayen MD LAB - BLOOD ORDERABL ES [facility] Acute Care Lab [address] [facility] Lab (1st floor, no room number) [place] [address], [facility] * (ABNORMAL) Comprehensive metabolic panel [...] 05/28/2024 7:27 AM CDT LABORATORY Comment:eGFR calculated usin g 2020 CKD-EPI equation. Calcium 8.3(L) 8.8 - [...] LAB - BLOOD ORDERABL ES [facility] Acute Care Lab [address] [facility] ([facility], no room number) [place] [address], [facility] * (ABNORMAL) CBC with platelets (05/28/2024 [...] Thompson MD LAB - BLOOD ORDERABL ES [facility] Acute Care Lab [address] Lab (1st floor, no room number) [address] * (ABNORMAL) Sodium (05/27/2024 11:40 PM CDT) Sodium 129(L) 135 - 145 mmol/L 05/28/2024 12:02 AM CDT [facility] Blood BLOOD SPECIMEN / Unknown Venipuncture / Unknown 05/27/2024 11:40 PM CDT 05/27/2024 11:44 PM CDT Kenneth Mayen MD LAB - BLOOD ORDERABL ES Performing Organization Address [facility]/ZIP Co de Phone Number [facility] Care Lab [address] Lab (1st floor, no room number) [address] * (ABNORMAL) Sodium (05/27/2024 5:50 PM CDT) Sodium 125(L) 135 - 145 mmol/L 05/27/2024 6:19 PM CDT [facility] Blood STRUCTURE OF LEFT UPPER LIMB / Unknown Venipuncture / Unknown 05/27/2024 5:50 PM CDT 05/27/2024 5:54 PM CDT Kenneth Mayen MD LAB - BLOOD ORDERABL ES Performing Organization Address City/[facility]/ZIP Co de Phone Number [facility] Care Lab [address] Lab (1st floor, no room number) [address] * (ABNORMAL) Sodium (05/27/2024 1:50 PM CDT) Sodium 123(L) 135 - 145 mmol/L 05/27/2024 2:32 PM CDT [facility] Blood STRUCTURE OF RIGHT UPPER LIMB / Unknown Venipuncture / Unknown 05/27/2024 1:50 PM CDT 05/27/2024 1:59 PM CDT Kenneth Mayen MD LAB - BLOOD ORDERABL ES [facility] Acute Care Lab [address] Lab (1st floor, no room number) [address] * Magnesium (05/27/2024 6:25 AM CDT) Magnesium 1.9 1.7 - 2.3 mg/dL 05/27/2024 8:21 AM CDT [facility] Blood STRUCTURE OF RIGHT UPPER LIMB / Unknown Venipuncture / Unknown 05/27/2024 6:25 AM CDT 05/27/2024 6:38 AM CDT Dorita Thompson MD LAB - BLOOD ORDERABL ES Performing Organization Address [facility]/ZIP Co de Phone Number [facility] Acute Care Lab [address] Lab (1st floor, no room number) [address] * (ABNORMAL) Sodium (05/27/2024 6:25 AM CDT) Sodium 123(L) 135 - 145 mmol/L 05/27/2024 7:06 AM CDT [facility] Blood STRUCTURE OF RIGHT UPPER LIMB / Unknown Venipuncture / Unknown 05/27/2024 6:25 AM CDT 05/27/2024 6:38 AM CDT Kenneth Mayen MD LAB - BLOOD ORDERABL ES [facility] Acute Care Lab [address] Lab (1st floor, no room number) [address] * (ABNORMAL) Comprehensive metabolic panel (05/27/2024 6:25 AM CDT) Sodium 123(L) 135 - 145 mmol/L 05/27/2024 7:06 AM CDT [facility] Potassium 3.3(L) 3.4 - 5.3 mmol/L 05/27/2024 7:06 AM CDT [facility] Carbon Dioxide (CO2) 20(L) 22 - 29 mmol/L 05/27/2024 7:06 AM CDT [facility] Anion Gap 12 7 - 15 [...] - BLOOD ORDERABL ES Performing Organization Address City/[facility]/ZIP Co de Phone Number [facility] Acute Care Lab [address] Lab (1st floor, no room number) [address] * (ABNORMAL) Lipase (05/27/2024 6:25 AM CDT) Lipase 63(H) 13 - 60 U/L 05/27/2024 7:06 AM CDT [facility] Blood STRUCTURE OF RIGHT UPPER LIMB / Unknown Venipuncture / Unknown 05/27/2024 6:25 AM CDT 05/27/2024 6:38 AM CDT Dorita Thompson MD LAB - BLOOD ORDERABL ES Performing Organization Address City/[facility]/ZIP Co de Phone Number [facility] Lab [address] Lab (1st floor, no room number) [address] * (ABNORMAL) CBC with platelets (05/27/2024 6:25 [...] Thompson MD LAB - BLOOD ORDERABL ES [facility] Lab [address] Lab (1st floor, no room number) [address] * (ABNORMAL) Sodium (05/27/2024 1:00 AM CDT) Sodium 127(L) 135 - 145 mmol/L 05/27/2024 1:32 AM CDT [facility] Blood BLOOD SPECIMEN / Unknown Venipuncture / Unknown 05/27/2024 1:00 AM CDT 05/27/2024 1:04 AM CDT Kenneth Mayen MD LAB - BLOOD ORDERABL ES [facility] Lab [address] Lab (1st floor, no room number) [address] * (ABNORMAL) Sodium (05/26/2024 5:43 PM CDT) Sodium 123(L) 135 - 145 mmol/L 05/26/2024 6:23 PM CDT [facility] Blood STRUCTURE OF LEFT UPPER LIMB / Unknown Venipuncture / Unknown 05/26/2024 5:43 PM CDT 05/26/2024 5:59 PM CDT Kenneth Mayen MD LAB - BLOOD ORDERABL ES [facility] Acute Care Lab [address] Lab (1st floor, no room number) [place] [address] * Osmolality urine (05/26/2024 5:17 PM CDT) [...] - URINE ORDERABL ES Performing Organization Address [facility]/ZIP Co de Phone Number [facility] [place] [facility] [address] [facility], Room [address] [place] [id number] * Sodium random urine (05/26/2024 5:17 PM [...] Thompson MD LAB - URINE ORDERABL ES [facility] Acute Care Lab [address] [facility] Lab (1st floor, no room number) [place] [address], [facility] * XR ERCP (05/26/2024 2:56 PM CDT) Kristen RADIBLANCA - 05/26/2024 2:58 PM CDT This exam was marked as non-reportable because it will not be read by a radiologist or a [place] non-radiologist provider. Jefferson Gama MD IMG DIAGNOSTIC I MAGING ORDERABLES RADIANT * ENDOSCOPIC RETROGRADE CHOLANGIOPANCREATOGRAPHY (05/26/2024 1:39 PM CDT) Pathologist [facility] Patient Name: Car MeredithShannan Calvert ? Procedure [...] Exera II Duodenovideoscope (ERCP), Model # ?[id number]-[id number], [facility] # [id number] was introduced ?through the mouth, and used to inject contrast into ?and used to inject contrast into the bile duct. The ?ERCP was accomplished without difficulty. The ?patient tolerated the procedure well. ? Findings: ? The teller head film was normal. The esophagus was successfully [...] Note Initiated On: 05/26/2024 1:39 PM MRN: ?[id number] Procedure Date: ? 05/26/2024 1:39:55 PM Total Procedure Duration: 0 hours 25 minutes 28 seconds Estimated Blood Loss: ? Scope In: 2:21:09 PM Scope Out: 2:46:37 PM RADIOLOGY RESULTS 05/26/2024 1:39 PM CDT Provider Not In System PROCEDURES Performing Organization Address [facility]/ZIP Co de Phone Number RADIOLOGY RESULTS * (ABNORMAL) Glucose by meter (05/26/2024 12:26 PM CDT) GLUCOSE BY METER POCT 124(H) 70 - 99 mg/dL 05/26/2024 12:33 PM CDT LABORATORY POC Blood, Capillary BLOOD SPECIMEN / Unknown 05/26/2024 12:26 PM CDT 05/26/2024 12:33 PM CDT Seth Rios MD LAB - BEAKER POCT Performing Organization Address [facility]/ZIP Co de Phone Number LABORATORY [facility] Acute Care Lab [address] Lab (1st floor, no room number) [address] * (ABNORMAL) Potassium (05/26/2024 12:04 PM CDT) Potassium 3.3(L) 3.4 - 5.3 mmol/L 05/26/2024 12:42 PM CDT LABORATORY Blood STRUCTURE OF RIGHT HAND / Unknown Venipuncture / Unknown 05/26/2024 12:04 PM CDT 05/26/2024 12:19 PM CDT Dorita Thompson MD LAB - BLOOD ORDERABL ES Performing Organization Address [facility] Co de Phone Number [facility] Acute Care Lab [address] Lab (1st floor, no room number) [address], [facility] * (ABNORMAL) Sodium (05/26/2024 12:04 PM CDT) Sodium 122(L) 135 - 145 mmol/L 05/26/2024 12:45 PM CDT [facility] LABORATORY Blood STRUCTURE OF RIGHT HAND / Unknown Venipuncture / Unknown 05/26/2024 12:04 PM CDT 05/26/2024 12:19 PM CDT Kenneth Mayen MD LAB - BLOOD ORDERABL ES [facility] Acute Care Lab [address] Lab (1st floor, no room number) [address] [place] [address] * INR (05/26/2024 9:47 AM CDT) INR 1.10 0.85 - 1.15 05/26/2024 10:12 AM CDT RH LABORATORY Blood STRUCTURE OF RIGHT HAND / Unknown Venipuncture / Unknown 05/26/2024 9:47 AM CDT 05/26/2024 9:56 AM CDT Asuncion Flynn PA-C LAB - BLOOD ORDERABLES Performing Organization Address City/[facility]/ZIP Co de Phone Number [facility] Care Lab [address] Lab (1st floor, no room number) [place] [id number] [place] [address] * TSH with free T4 reflex (05/26/2024 6:49 AM CDT) TSH 1.27 0.30 - 4.20 uIU/mL 05/26/2024 12:29 PM CDT RH LABORATORY Blood STRUCTURE OF RIGHT HAND / Unknown Venipuncture / Unknown 05/26/2024 6:49 AM CDT 05/26/2024 6:59 AM CDT Dorita Thompson MD LAB - BLOOD ORDERABL ES [facility] Acute Care Lab [address] Lab (1st floor, no room number) [place] [phone] * (ABNORMAL) Magnesium (05/26/2024 6:49 AM CDT) Magnesium 1.5(L) 1.7 - 2.3 mg/dL 05/26/2024 8:55 AM CDT RH LABORATORY Blood STRUCTURE OF RIGHT HAND / Unknown Venipuncture / Unknown 05/26/2024 6:49 AM CDT 05/26/2024 6:59 AM CDT Dorita Thompson MD LAB - BLOOD ORDERABL ES [facility] LABORATORY [facility] Acute Care Lab [address] [facility] Lab (1st floor, no room number) [place] [address] * (ABNORMAL) CBC with platelets (05/26/2024 6:49 AM CDT) WBC Count 9.7 4.0 - 11.0 10e3/uL [...] MD LAB - BLOOD ORDERABL ES LABORATORY [facility] Acute Care Lab [address] Lab (1st floor, no room number) [place] [address], [facility] * (ABNORMAL) Comprehensive metabolic panel (05/26/2024 6:49 AM CDT) Sodium 121(L) 135 - 145 mmol/L 05/26/2024 7:32 AM CDT LABORATORY Potassium 3.1(L) 3.4 - 5.3 mmol/L 05/26/2024 7:32 AM CDT LABORATORY Carbon Dioxide (CO2) 19(L) 22 - 29 mmol/L 05/26/2024 7:32 AM CDT LABORATORY Anion Gap 15 7 - 15 mmol/L 05/26/2024 7:32 AM CDT LABORATORY Urea Nitrogen 19.1 8.0 - 23.0 mg/dL 05/26/2024 7:32 AM CDT LABORATORY Creatinine 1.22(H) 0.67 - 1.17 mg/dL 05/26/2024 7:32 AM CDT LABORATORY GFR Estimate 62 >60 mL/min/1.7 3m2 05/26/2024 7:32 AM CDT LABORATORY Comment:eGFR calculated usin g 2020 CKD-EPI equation. Calcium 8.5(L) 8.8 - 10.4 mg/dL 05/26/2024 7:32 AM CDT LABORATORY Comment:Reference intervals for this test were updated on 03/08/2024 to reflect our healthy population more accurately. There may be differences in the flagging of prior results with similar values performed with this method. Those prior results can be interpreted in the context of the updated reference intervals. Chloride 87(L) 98 - 107 mmol/L 05/26/2024 7:32 AM CDT LABORATORY Glucose 124(H) 70 - 99 mg/dL 05/26/2024 7:32 AM CDT LABORATORY Alkaline Phosphatase 166(H) 40 - 150 U/L 05/26/2024 7:32 AM CDT LABORATORY AST 90(H) 0 - 45 U/L [...] Wan MD LAB - BLOOD ORDERABL ES [facility] Care Lab [address] Lab (1st floor, no room number) [place] [address] * (ABNORMAL) Sodium (05/26/2024 12:23 AM CDT) Sodium 126(L) 135 - 145 mmol/L 05/26/2024 1:05 AM CDT RH LABORATORY Blood STRUCTURE OF FINGER OF RIGHT HAND / Unknown Capillary / Unknown 05/26/2024 12:23 AM CDT 05/26/2024 12:46 AM CDT Sulaiman Wan MD LAB - BLOOD ORDERABL ES [facility] Care Lab [address] Lab (1st floor, no room number) [place] [address] documented in this encounter Visit Diagnoses Diagnosis Calculus of bile duct with acute cholecystitis and obstruction- Primary Cholangitis (H) Cholangitis Duodenal ulcer without hemorrhage or perforation and without obstruction Duodenal ulcer, unspecified as acute or chronic, without hemorrhage, perforation, or obstruction Choledocholithiasis with obstruction Calculus of bile duct without mention of cholecystitis, with obstruction documented in this encounter Administered Medications Inactive [...] on 05/28/24 at 1030, Indications: Intra-Abdominal Infection famotidine (PEPCID) tablet 20 mg 20 mg, Oral, 2 TIMES DAILY, First dose on Yara 05/26/24 at 2100 $Given 05/27/2024 3:05 PM CDT 20 mg $Given 05/26/2024 8:56 PM CDT 20 mg finasteride (PROSCAR) tablet 5 mg 5 mg, [...] Starting on Thu05/25/24 at 2306 hydrALAZINE (APRESOLINE) injection 2.5-5 mg 2.5-5 mg, Intravenous, EVERY 10 MIN PRN, other, for Systolic Blood Pressure greater than 160 mmHg, Administer over 1 Minutes, Starting on Thu05/27/24 at 1259, Max cumulative dose = 20 mg. FOR USE IN PACU ONLY., PACU $Given 05/27/2024 1:27 PM CDT 2.5 mg $Given 05/27/2024 1:13 PM CDT 2.5 mg hydrALAZINE (APRESOLINE) tablet 10 mg 10 mg, Oral, EVERY 4 HOURS PRN, high blood pressure, for systolic BP greater than 180 mmHg, Starting on Thu05/25/24 at 2306 indocyanine green (IC-GREEN) injection 2.5 mg 2.5 mg, Intravenous, ONCE, On Thu05/27/24 at 0830, For 1 dose, Reconstitute vial with 10 mL Sterile Water for Injection (conc 2.5 mg/mL) PRIOR to administration. Administer IV as a single dose at least 45 minutes prior to robotic cholecystectomy surgery. Use prepared solution within 1 hours and discard any unused solution., Pre-procedure $Given 05/27/2024 8:56 AM CDT 2.5 mg labetalol (NORMODYNE/TRANDATE) injection 10 mg 10 mg, Intravenous, ONCE PRN, other, for Systolic Blood Pressure greater than 160 mmHg while Heart Rate greater than 60 bpm, Starting on Thu05/27/24 at 1259, For 1 dose, For PACU USE ONLY., PACU $Given 05/27/2024 1:38 PM CDT 10 mg lactated ringers infusion at 75 mL/hr, Intravenous, CONTINUOUS, Starting on Thu05/25/24 at 2330, Until Yara 05/26/24 at 1601 Rate/Dose Change 05/26/2024 12:10 PM CDT 75 mL/hr $New Bag 05/26/2024 12:44 AM CDT 100 mL/hr metoprolol tartrate (LOPRESSOR) tablet 25 mg 25 [...] 6 HOURS PRN, nausea, vomiting, Starting on Yaar 05/26/24 at 1501, This is Step 1 [...] $Given 05/27/2024 4:03 PM CDT 40 mg piperacillin-tazobactam (ZOSYN) 3.375 g vial to attach to NS 100 mL bag Routine, 3.375 g, Intravenous, EVERY 6 HOURS, First dose on Yara 05/26/24 at 0030, Lactated Ringer's solution is not compatible with piperacillin-tazobactam for injection., Indications: Intra-Abdominal Infection $New Bag 05/27/2024 6:13 AM CDT 3.375 g $New Bag 05/27/2024 12:41 AM CDT 3.375 g $New Bag 05/26/2024 6:48 PM CDT 3.375 g potassium chloride nicolasa ER (KLOR-CON M20) CR tablet 40 mEq 40 mEq, Oral, ONCE, On Yara 05/26/24 at 0830, For 1 dose, Potassium level 3.1 - 3.4 mmol/L Ordered from the Potassium replacement order set. DO NOT CRUSH, Potassium Replacement: Potassium level 3.1-3.4 mmol/L, Recheck: Potassium level 4 hours AFTER last oral dose $Given 05/26/2024 9:08 AM CDT 40 mEq senna-docusate (SENOKOT-S/PERICOLACE) 8.6-50 MG per tablet 1 [...] 12:44 AM CDT 3 mLs sodium chloride 0.9 % infusion at 75 mL/hr, Intravenous, CONTINUOUS, Starting on Thu05/26/24 at 1630, Until Thu05/26/24 at 1657 $New Bag 05/26/2024 4:31 PM CDT 75 mL/hr sodium chloride 0.9 % infusion at 75 mL/hr, Intravenous, CONTINUOUS, Please stop saline after this bag is completed due to supply shortage. , Starting on Thu05/26/24 at 1700, Until Thu05/27/24 at 0559 Rate/Dose Verify 05/26/2024 5:16 PM CDT 75 mL/hr tamsulosin (FLOMAX) capsule 0.4 mg 0.4 mg, [...] 5 mg, Oral, DAILY, First dose on Thu05/26/24 at 1630, On hold since Thu05/26/2024 at [...] 1021 ($Given - Provider: Concepcion Rosado APRN CRNA) famotidine (PEPCID) tablet 20 mg (CANCELED) 20 mg, Oral, 2 TIMES DAILY, First dose on Yara 05/26/24 at 2100 2055 ($Given - Provider: Yunior Canales, YASEMIN) 0815 [...] 5 mg, Oral, DAILY, First dose on Thu05/26/24 at 1630, *Do not handle tablets if you are * 1720 (Not Given - Provider: Yunior Canales RN - Reason: Nausea)2055 ($Given - Provider: Yunior Canales, YASEMIN) 0815 (Auto Hold - Provider: Orders Generic Provider - Reason: Transfer to a procedural area)0900 (Automatically Held - Provider: Orders Generic Provider)1430 (Unhold - Provider: Orders Generic Provider) 0820 ($Given - Provider: Stone Hall, YASEMIN) indocyanine green (IC-GREEN) injection 2.5 mg (COMPLETED) [...] be crushed and given via enteral route. 2056 ($Given - Provider: Yunior Canales, YASEMIN) 0815 (Auto Hold - Provider: Orders Generic Provider - Reason: Transfer to a procedural area)0900 (Automatically Held - Provider: Orders Generic Provider)1430 (Unhold - Provider: Orders Generic Provider)2224 ($Given - Provider: Yunior Canales, YASEMIN) 0820 ($Given - Provider: Stone Hall, YASEMIN) pantoprazole (PROTONIX) EC tablet 40 mg 40 [...] Stone Hall RN)2225 ($Given - Provider: Yunior Canales, YASEMIN)2330 (Canceled Entry - Provider: Yunior Canales, YASEMIN) 0822 ($Given - Provider: Stoen Hall, YASEMIN) tamsulosin (FLOMAX) capsule 0.4 mg 0.4 mg, Oral, DAILY, First dose on Thu05/26/24 at 1630, Administer 30 minutes after the same meal each day. Capsules should be swallowed whole; do not crush chew or open. 1641 ($Given - Provider: Yunior Canales, YASEMIN) 0815 [...] 1601 0044 ($New Bag - Provider: Anne Henderson RN)1210 (Rate/Dose Change - Provider: Linda Walters RN) lactated ringers infusion (CANCELED) at 10 mL/hr, Intravenous, CONTINUOUS, IF patient NOT on dialysis., Pre-procedure, Starting on Thu05/26/24 at 1230, Until Thu05/26/24 at 1453 1424 ($New Bag - Provider: Concepcion Rosado APRN AIR BRAKE MECHANIC)1447 (Anesthesia Volume Adjustment - Provider: Jaja Hector APRN AIR BRAKE MECHANIC) sodium chloride 0.9 % infusion (CANCELED) at 75 mL/hr, Intravenous, CONTINUOUS, Starting on Thu05/26/24 at 1630, Until Thu05/26/24 at 1657 1631 ($New Bag - Provider: Yunior Canlaes RN) sodium chloride 0.9 % infusion () at 75 mL/hr, Intravenous, CONTINUOUS, Please stop saline after this bag is completed due to supply shortage. , Starting on Thu05/26/24 at 1700, Until Thu05/27/24 at 0559 1716 (Rate/Dose Verify - Provider: Yunior Canales, RN) 0602 (Stopped - Provider: Tristan Bourgeois, YASEMIN) PRN Medication Order 05/26/2024 05/27/2024 05/28/2024 albuterol (PROVENTIL) neb solution 2.5 mg 2.5 mg, Nebulization, EVERY 2 HOURS PRN, shortness of breath, Starting on Yara 05/26/24 at 1617 0815 (Auto Hold - Provider: [...] ONLY., PACU 1313 ($Given - Provider: Layla Kee, RN)1327 ($Given - Provider: Layla Kee, RN) hydrALAZINE (APRESOLINE) tablet 10 mg(Linked Group [...] Generic Provider) 0605 ($Given - Provider: Tristan Bourgeois RN)0815 (Auto Hold [...] stools. documented in this encounter Care Teams Amphibious Operations Officer Relationship Specialty Start Date End Date Dustin Victor MD [facility] [address] [place] [address] PCP - General Family Medicine 04/01/23 documented as of this encounter
--- OUTSIDE RECORDS SUMMARY | 2024-05-29 14:15 | XMS_ITS | Encounter Summary ---
Author Organization [place] Address [facility] [place] [address] Care Team Providers Care Assistant Spa Director Name Role Phone Dustin Victor MD Primary Care Provider [phone] Reason for Visit * Auth/Cert (Routine) Specialty Diagnoses / Procedures Referred By Contac t Referred To Contact Med Surg Diagnoses Choledocolithiasis and cholecysitis Choledocholithiasis with obstruction 5 [facility] [address] [place] [address] Referral ID Status Reason Start Date Expiration Date Visits Re quested Visits Authorized [id number] 1 1 Encounter Details Date Type Department Care Team (Late st Contact Info) Description 05/26/2024 2:10 PM CDT Anesthesia Event [facility] [address] [place] [address] Car Underwood MD [facility] [address] [place] [address] Shivam Norris MD [facility] [address] [place], [place] [id number] Anesthesia Record Procedure Summary Procedure Name Responsible Anesthesiologist Anesthesia Start Time Anesthesia Stop Time ENDOSCOPIC RETROGRADE CHOLANGIOPANCREATOGRAPH Y, sphincterotomy and balloon extraction (Mouth) Car Underwood MD 05/26/24 1410 05/26/24 1456 Events Date Time Event Comment 05/26/2024 1330 1400 REGULATORY ASSOCIATE Ready for Procedure 1410 An Start Anesthesia Star t is defined as when the anesthesia provider assumed care, began anesthesia prep, remained continuously present with the patient, and excludes all time for performing the pre-anesthesia evaluation. The Pre-Anesthesia Evaluation was completed before Anesthesia Start. 1414 An Start Data 1415 AN REASSESS I attest that I have identified and re-evaluated the patient immediately before the induction of anesthesia and I am satisfied that the anesthetic plan is suitable for the patient's condition and procedure. The first vital signs recorded are pre- induction. Concepcion Rosado APRN REGULATORY ASSOCIATE 1415 Quick Note Monitors, alarm s on. Pt positioned to comfort. Oxygen per face mask. Sedation as listed. 1415 MD Present 1421 Anesthesia Ready for Procedu re 1432 MD Present 1441 MD Present 1451 an stop data 1456 An Stop Electronically signed by Jaja Hector APRN REGULATORY ASSOCIATE on May 26, 2024 2:56 PM 1456 MD Present Meds Name Total midazolam 1 mg/mL 1 mg lidocaine 2% 20 mg propofol drip mcg/kg/min 335.48 mg ondansetron 2 mg/mL 4 mg 0.9% NS 250 mL lactated ringers infusion 700 mL * Agents Name O2 N2O Air Exp Sevoflurane Exp Isoflurane Exp Desflurane Ins Sevoflurane Ins Isoflurane Ins Desflurane * Blood No blood administrations on file. Lines, Drains, and Airways Type Details Placement Removal Incision/Surgical Site No Incision; 11/14; 1424; Mouth; ERCP - no incision 05/26/24 1424 by Evelyn Brandt, YASEMIN Peripheral IV 05/25/24; 2242 (Unknown what time- placed by different facility.); Anterior, Right; Upper forearm 05/25/24 2242 by Stone Hall, RN 05/28/24 0954 by Stone Hall, RN documented in this encounter Social History Tobacco Use Types Packs/Day Years Used Date Smoking Tobacco: Never Assessed Adolescent Education Answer Date Record ed Getting [...] in an abandoned building, in an overnight halfway, or couch-surfing.) Yes 05/25/2024 Are you worried [...] OR Notes * Anesthesia Postprocedure Evaluation - Car Underwood MD - 05/26/2024 5:47 PM CDT Patient: Car Calvert Procedure: Procedure(s): ENDOSCOPIC RETROGRADE CHOLANGIOPANCREATOGRAPHY, sphincterotomy and balloon extraction Anesthesia Type: MAC Note: Disposition: Outpatient Postop Pain Control: Uneventful Sign Out: Well controlled pain PONV: No Neuro/Psych: Uneventful Sign Out: Acceptable/Baseline neuro status Airway/Respiratory: Uneventful Sign Out: Acceptable/Baseline resp. status CV/Hemodynamics: Uneventful Sign Out: Acceptable CV status; No obvious hypovolemia; No obvious fluid overload Other NRE: NONE DID A NON-ROUTINE EVENT OCCUR? No Last vitals: Vitals Value Taken Time BP 140/81 05/26/24 1545 Temp 97.7 ??F (36.5 ??C) 05/26/24 1453 Pulse 86 05/26/24 1545 Resp 18 05/26/24 1517 SpO2 96 % 05/26/24 1546 Vitals shown include unfiled device data. Electronically Signed By: Car Underwood MD May 26, 2024 5:47 PM * Anesthesia Preprocedure Evaluation - Shivam Norris MD - 05/26/2024 1:30 PM CDT Anesthesia Pre-Procedure Evaluation Patient: Car Calvert : 1950 Procedure : Procedure(s): ENDOSCOPIC RETROGRADE CHOLANGIOPANCREATOGRAPHY No past medical history on file. No past surgical history on file. Allergies Allergen Reactions Lisinopril Social History Tobacco Use Smoking status: Not on file Smokeless tobacco: Not on file Substance Use Topics Alcohol use: Not on file Wt Readings from Last 1 Encounters: 05/25/24 106.5 kg (234 lb 12.8 oz) Anesthesia Evaluation Pt has had prior anesthetic. Type: General. No history of anesthetic complications ROS/MED HX ENT/Pulmonary: - neg pulmonary ROS Neurologic: - neg neurologic ROS Cardiovascular: (+) Dyslipidemia hypertension- - - - - METS/Exercise Tolerance: Hematologic: - neg hematologic ROS Musculoskeletal: - neg musculoskeletal ROS GI/Hepatic: - neg GI/hepatic ROS Renal/Genitourinary: - neg Renal ROS Endo: Comment: Hyponatremia (+) Obesity, Psychiatric/Substance Use: - neg psychiatric ROS Infectious Disease: Malignancy: Other: Physical Exam Airway Mallampati: II TM distance: > 3 FB Neck ROM: full Mouth opening: > 3 cm Respiratory Devices and Support Dental (+) Modest Abnormalities - crowns, retainers, 1 or 2 missing teeth Cardiovascular cardiovascular exam normal Pulmonary pulmonary exam normal OUTSIDE LABS: CBC: Lab Results Component Value Date WBC 9.7 05/26/2024 HGB 12.5 (L) 05/26/2024 HCT 36.6 (L) 05/26/2024 PLT 123 (L) 05/26/2024 BMP: Lab Results Component Value Date NA 122 (L) 05/26/2024 NA 121 (L) 05/26/2024 POTASSIUM 3.3 (L) 05/26/2024 POTASSIUM 3.1 (L) 05/26/2024 CHLORIDE 87 (L) 05/26/2024 CO2 19 (L) 05/26/2024 BUN 19.1 05/26/2024 CR 1.22 (H) 05/26/2024 GLC 124 (H) 05/26/2024 GLC 124 (H) 05/26/2024 COAGS: Lab Results Component Value Date INR 1.10 05/26/2024 POC: No results found for: BGM, HCG, HCGS HEPATIC: Lab Results Component Value Date ALBUMIN 3.4 (L) 05/26/2024 PROTTOTAL 6.5 05/26/2024 ALT 208 (H) 05/26/2024 AST 90 (H) 05/26/2024 ALKPHOS 166 (H) 05/26/2024 BILITOTAL 1.2 05/26/2024 OTHER: Lab Results Component Value Date PRASANNA 8.5 (L) 05/26/2024 MAG 1.5 (L) 05/26/2024 TSH 1.27 05/26/2024 Anesthesia Plan ASA Status: 3 Anesthesia Type: MAC. - Reason for MAC: straight local not clinically adequate Consents Anesthesia Plan(s) and associated risks, benefits, and realistic alternatives discussed. Questions answered and patient/medical field representative(s) expressed understanding. - Discussed: - Discussed with: Patient - Extended Intubation/Ventilatory Support Discussed: No. - Patient is DNR/DNI Status: No Use of blood products discussed: No . Postoperative Care Pain management: IV analgesics, Oral pain medications, Multi-modal analgesia. PONV prophylaxis: Dexamethasone or Solumedrol, Ondansetron (or other 5HT-3) Comments: Shivam Norris MD I have reviewed the pertinent notes [...] encounter: 106.5 kg (234 lb 12.8 oz). documented in this encounter Miscellaneous Notes * Anesthesia Care Transfer Note - Jaja Hector APRN CRNA - 05/26/2024 2:56 PM CDT Patient: Car Calvert Procedure: Procedure(s): ENDOSCOPIC RETROGRADE CHOLANGIOPANCREATOGRAPHY, sphincterotomy and balloon extraction Diagnosis: Calculus of bile duct with acute cholecystitis and obstruction [K80.43] Diagnosis Additional Information: No value filed. Anesthesia Type: MAC Note: Oropharynx: oropharynx clear of all foreign objects Level of Consciousness: drowsy Oxygen Supplementation: room air Independent Airway: airway patency satisfactory and stable Dentition: dentition unchanged Vital Signs Stable: post-procedure vital signs reviewed and stable Report to RN Given: handoff report given Patient transferred to: Phase II Handoff Report: Identifed the Patient, Identified the Reponsible Provider, Reviewed the pertinent medical history, Discussed the surgical course, Reviewed Intra-OP anesthesia mangement and issues during anesthesia, Set expectations for post-procedure period and Allowed opportunity for questions andacknowledgement of understanding Vitals: Vitals Value Taken Time BP Temp 97.7 ??F (36.5 ??C) 05/26/24 1453 Pulse Resp SpO2 Electronically Signed By: Jaja Hector APRN CRNA May 26, 2024 2:56 PM documented in this encounter Plan of Treatment Scheduled Procedures Name Priority Associated Diagnoses Date/Ti me CHOLECYSTECTOMY, LAPAROSCOPIC Calculus of bile duct with acute cholecystitis and obstruction documented as of this encounter Visit Diagnoses Not on filedocumented in this encounter Administered Medications Inactive Administered Medications - up to 3 most recent administrations Medication Order MAR Action Action Date Dose Rate Site lactated ringers infusion at 10 mL/hr, Intravenous, CONTINUOUS, IF patient NOT on dialysis., Pre-procedure, Starting on Yara 05/26/24 at 1230, Until Yara 05/26/24 at 1453 $New Bag 05/26/2024 2:24 PM CDT lidocaine 2% injection (MDV) Intravenous, PRN, Starting on Yara 05/26/24 at 1418, Anesthesia Intra-op $Given 05/26/2024 2:18 PM CDT 20 mg midazolam (VERSED) injection Intravenous, Administer over 2 Minutes, PRN, Starting on Yara 05/26/24 at 1412, Anesthesia Intra-op $Given 05/26/2024 2:12 PM CDT 1 mg ondansetron (ZOFRAN) injection Intravenous, PRN, Administer over 2-5 Minutes, Starting on Yara 05/26/24 at 1421, Anesthesia Intra-op $Given 05/26/2024 2:21 PM CDT 4 mg propofol (DIPRIVAN) infusion Intravenous, CONTINUOUS PRN, Starting on Yara 05/26/24 at 1418, Anesthesia Intra-op Rate/Dose Change 05/26/2024 2:40 PM CDT 75 mcg/kg/min 47.925 mL/hr Rate/Dose Change 05/26/2024 2:32 PM CDT 100 mcg/kg/min 63. 9 mL/hr Rate/Dose Change 05/26/2024 2:21 PM CDT 125 mcg/kg/min 79. 875 mL/hr sodium chloride 0.9 % infusion Intravenous, CONTINUOUS PRN, Anesthesia Intra-op, Starting on Yara 05/26/24 at 1410, Until Yara 05/26/24 at 1456 $New Bag 05/26/2024 2:10 PM CDT documented in this encounter Care Teams Assistant Spa Director Relationship Specialty Start Date End Date Dustin Victor MD [facility] [address] [place] [address] PCP - General Family Medicine 04/01/23 documented as of this encounter
--- OUTSIDE RECORDS SUMMARY | 2024-05-29 14:15 | XMS_ITS | Encounter Summary ---
Author Organization [place] Address [facility] [place] [address] Care Team Providers Care Net Front End Developer Name Role Phone Dustin Victor MD Primary Care Provider Reason for Visit * Auth/Cert (Routine) Specialty Diagnoses / Procedures Referred By Contac t Referred To Contact Med Surg Diagnoses Choledocolithiasis and cholecysitis Choledocholithiasis with obstruction 5 Medical Surgical [address] [place] [address] Referral ID Status Reason Start Date Expiration Date Visits Re quested Visits Authorized [id number] 1 1 Encounter Details Date Type Department Care Team (Late st Contact Info) Description 05/26/2024 1:50 PM CDT - 05/26/2024 2:45 PM CDT Surgery [facility] PeriOp Services [address] [place] [id number] Jefferson Gama MD [place] [facility] [address] [place] [address] ENDOSCOPIC RETROGRADE CHOLANGIOPANCREATOGRAPHY , sphincterotomy and balloon extraction Surgery Details Date/Time Status Location OR Service Patient Class Case Class Case Type Trauma Case? 05/26/24 1:50 PM Posted [facility] OR OR 09 Gastroenterology Inpatient NEST 4 - Urgent (within 12hrs) Panel 1 Procedure LRB Anes Op Region Wound Class Comments ENDOSCOPIC RETROGRADE CHOLANGIOPANCREATOGRAPHY, sphincterotomy and balloon extraction N/A MAC Mouth II-Clean Contaminated Surgeon Surgeon Role Service Panel Jefferson Gama MD Primary Gastroenterolog y 1 documented in this encounter Social History Tobacco Use Types Packs/Day Years Used Date Smoking Tobacco: Former Cigarettes 2 015 - 1965 Tobacco Cessation:Counseling Given: Not Answered Adolescent [...] Sign Reading Time Taken Comments Blood Pressure 143/87 05/26/2024 12:23 PM CDT Pulse 100 05/26/2024 12:23 PM CDT Temperature 36.7 ??C (98 ??F) 05/26/2024 12: 23 PM CDT Respiratory Rate 16 05/26/2024 12:2 3 PM CDT Oxygen Saturation 95% 05/26/2024 9:04 AM CDT Inhaled Oxygen Concentration - - Weight 106.5 kg (234 lb 12.8 oz) 05/25/2024 9:35 PM CDT Height 177.8 cm (5' 10) 05/25/2024 9:35 PM CDT Body Mass Index 33.69 05/25/2024 9:35 PM CDT documented in this encounter Discharge Summaries * Dorita Thompson MD - 05/28/2024 10:41 AM CDT [facility] Hospitalist Discharge Summary Date of [...] hypertension, hyperlipidemia, and obesity who presented to [facility] from outside hospital on 05/25/2024 with acute [...] mild biliary dilation. Patient subsequently transferred from [facility] for ERCP. Patient was empirically started on [...] minutes discharging this patient. Dorita Thompson MD [place] [address] MEDICAL SURGICAL [address] [facility] [address] Physical Exam Vital Signs: Temp: 97.9 ??F [...] LFT's: Recent Labs Lab Test 05/28/24 0651 05/27/24 0625 AST 200* 315* ALT 229* 297* ALKPHOS [...] tablet Take 1 tablet by mouth daily. Fitzgerald-3 Fatty Acids (FISH OIL) 1200 MG capsule [...] CDT HOME CARE FOLLOWING LAPAROSCOPIC CHOLECYSTECTOMY Citlali Cotter R. Christie, R. Sherron???Clary Andersen J. Shaheen FOLLOW-UP AFTER SURGERY: -Our [...] to be seen, please call us at [phone]. We are located at: [address], [address]; [place] [address] INCISIONAL CARE: Replace the bandage over your [...] to discuss with the nurse or physician anesthesiology physician assistant. # There is a surgeon SLAB POLISHER on weekday evenings and over the weekend [...] Take 1 tablet by mouth daily. 01/11/2024 Fitzgerald-3 Fatty Acids (FISH OIL) 1200 MG capsule [...] Osorio PA-C - 05/28/2024 9:26 AM CDT [facility] General Surgery Progress Note Assessment and Plan: [...] clean, dry, intact Data: Recent Labs Lab 05/28/2465005/27/24 0605/26/24 0649 WBC 12.1* 10.1 9.7 HGB 12.1* 12.3* 12.5* HCT 35.8* 36.2* 36.6* MCV 89 89 89 PLT 164 142* 123* Recent Labs Lab 05/28/2451 05/27/24 2340 05/27/24 1750 05/27/24 1350 05/27/24 [...] not displayed. Barb Osorio PA-C Text page: [phone] 8 am to 4 pm After 4 pm, call * Dorita Thompson MD - 05/27/2024 7:52 PM CDT [facility] Medicine Progress Note - Hospitalist Service Date of Admission: 05/25/2024 Assessment & Plan Car Calvert is a 74 year old male with past medical history significant for interstitial lung disease, hypertension, hyperlipidemia, and obesity who presented to [facility] from outside hospital on 05/25/2024 with acute [...] mild biliary dilation. Patient subsequently transferred from [facility] for possible ERCP . Patient underwent stone [...] Anticipated tomorrow Dorita Thompson MD Hospitalist Service [facility] Securely message with [employer] (more info) Text page via [facility] Paging/Directory Interval History No acute events overnight. [...] Dr. Gama (GI). Dannie Simmons MD [facility] consultants Office: [phone] Interval History: No acute events overnight Na [...] and imaging. Dannie Simmons MD [facility] Consultants - Nephrology Office: [phone] * Dorita Thompson MD - 05/26/2024 4:03 PM CDT [facility] Medicine Progress Note - Hospitalist Service Date of Admission: 05/25/2024 Assessment & Plan Car Calvert is a 74 year old male with past medical history significant for interstitial lung disease, hypertension, hyperlipidemia, and obesity who presented to [facility] from outside hospital on 05/25/2024 with acute [...] mild biliary dilation. Patient subsequently transferred from [facility] for possible ERCP -GI consulted, appreciate recommendations. Status post ERCP, no report available to review at the time of writing this note -GS consulted -continue zosyn 3.375mg Q6H IV -Pain control and antiemetics PRN -Normal saline at 75 mL/h Hyponatremia Na 123 at OSH. Started on mIVF. Rechecking sodium on admission to [facility] and will continues fluids forgoal correction to [...] 2-4 Days Dorita Thompson MD Hospitalist Service [facility] Securely message with [employer] (more info) Text page via [employer] Paging/Directory Interval History No acute events overnight. [...] Interventions Taken No adjustments needed Admission/Transfer from: [place] ED 2 RN skin assessment completed. Yes Significant findings include: None LDA added (if applicable)? Not Applicable Requested WO Nurse Consult from MD? Not Applicable [place] RN documented in this encounter H&P Notes * Sulaiman Wan MD - 05/25/2024 11:18 PM CDT [facility] History and Physical - Hospitalist Service Date of Admission: 05/25/2024 Assessment & Plan Car Calvert is a 74 year old male with past medical history significant for interstitial lung disease, hypertension, hyperlipidemia, and obesity who presented to [facility] from outside hospital on 05/25/2024 with acute [...] mild biliary dilation. Patient subsequently transferred from [facility] for possible ERCP tomorrow. Of note, this was apparently confirmed with GI that it could be performedat [facility] prior to patient being transferred. Will continue antibiotics overnightto make patient NPO with anticipation of procedure tomorrow. -GI consulted, appreciate recommendations -Likely ERCP tomorrow -NPO @ 0000 -zosyn 3.375mg Q6H IV -Pain control and antiemetics PRN Hyponatremia Na 123 at OSH. Started on mIVF. Rechecking sodium on admission to [facility] and will continues fluids forgoal correction to [...] 2-4 Days Sulaiman Wan MD Hospitalist Service [facility] Securely message with [employer] (more info) Text page via [facility] Paging/Directory Chief Complaint Abdominal pain History is obtained from the patient History of Present Illness Car Calvert is a 74 year old male with past medical history significant for interstitial lung disease, hypertension, hyperlipidemia, and obesity who presented to [facility] from outside hospital on 05/25/2024 with acute [...] of drink. He presented earlier today to [place] emergency department. Laboratory studies revealed a mild [...] physician reportedly discussed with general surgery at [facility], who stated that the patient should be transferred for ERCP as it could not be performed at that location. He was provided with Zosyn + fluids prior to transfer. Patient was subsequently transferred to [facility] where he is thus far been afebrile. [...] 74 year old male who presented to [place] ED two days ago with right upper [...] Dorita Thompson MD 0.4 mg at 05/26/24 164 [Held by provider] triamterene-HCTZ (MAXZIDE-25) 37.5-25 MG [...] 5:08 PM CDTAssociated Order(s): NEPHROLOGY IP CONSULT [facility] Nephrology Consultation Date of Admission: 05/25/2024 [...] Gama (GI). Dannie Simmons MD [facility] Consultants - Nephrology [phone] Reason for Consult I was asked to [...] with obstructing 3mm CBD stone. Transferred to [facility] for ERCP and further treatment. Given [...] Sig: Take 81 mg by mouth daily. Fitzgerald-3 Fatty Acids (FISH OIL) 1200 MG capsule [...] NITRITE, LEUKEST Dannie Simmons MD [facility] Consultants - Nephrology [phone] * Jefferson Gama MD - 05/26/2024 9:11 AM CDTAssociated Order(s): GASTROENTEROLOGY IP CONSULT Images from the original note were not included. GASTROENTEROLOGY CONSULTATION Car Calvert [address] [place] [address] 74 year old male Admission Date/Time: 05/25/2024 Primary Care Provider: Dustin Victor Referring / Attending Physician: Dr. Wan We were asked to see the patient in consultation by Dr. Wan for evaluation of choledocholithiasis. HPI: Car Calvert is a 74 year old male with medical history of hypertension, hyperlipidemia, kidney stones, interstitial lung disease, who was transferred from [facility] with acute abdominal pain found [...] daily. 01/11/24 Yes Unknown, Entered By History Fitzgerald-3 Fatty Acids (FISH OIL) 1200 MG capsule [...] ALT 208* AST 90* IMAGING / ENDOSCOPY [facility] per report. I am unable to view these currently. CONSULTATION ASSESSMENT AND PLAN: Car Calvert is a 74 year old with medical history of hypertension, hyperlipidemia, kidney stones, interstitial lung disease, who was transferred from [facility] with acute abdominal pain found to have MRCP evidence of cholelithiasis, and choledocholithiasis. 1. Choledocholithiasis: As evidenced on MRCP with a 3 mm stone in the CBD. He is currently afebrile. LFTs have mildly improved. He continues on antibiotics. Abdominal pain is improving. Plan for ERCPthis afternoon here at [facility]. General surgery consult for discussion of [...] patient evaluation, reviewing documentation/ test results, and border measurer. Chelita Flynn PA-C [facility] ( [facility]) [place] note Patient seen and examined. Chart reviewed. [...] by surgery for cholecystectomy. Jefferson Gama MD [facility] 20 minutes spent documented in this encounter Miscellaneous Notes * Plan of Care - Blayne Montanez RN - 05/28/2024 6:17 AM CDT For vital signs and complete assessments, please see documentation flowsheets. [phone] Pertinent assessments: Pt A&Ox4. On RA. Afebrile. [...] shift note. Outcome: Progressing Flowsheets (Taken 05/27/2024 3759) Outcome Evaluation: Discharge pending. Plan of Care [...] Pertinent assessments: Assumed care of pt from [phone]. POD #1 from ERCP, POD #0 from [...] Documentation Taken 05/27/2024 1450 by [place] tree deadener Review/Management: medications reviewed * Brief Op Note - Kenneth Mayen MD - 05/27/2024 12:37 PM CDT [facility] Brief Operative Note Pre-operative diagnosis: [...] Mayen MD - 05/27/2024 10:41 AM CDT [facility] General Surgery Operative Note Pre-operative diagnosis: choledocholithiasis Post-operative diagnosis: same Procedure: laparoscopic cholecystectomy with modifer 22 - approximately 1 hour of additional time to complete the case due to a chronically inflamed, scarred, and contracted gallbladder Surgeon: Kenneth Mayen MD Cableman(s): Barb Osorio PA-C The Physician Cableman was medically necessary for their expertise in [...] documentation flowsheets. Pertinent assessments: Assumed care @ [phone]. POD #01 from ERCP. Pain controlled with oxycodone,given x 1. denies nausea and SOB. Afebrile, VSS. A&Ox4. Afebrile. On room air. IV fluids infusing. Tolerating clear liquids. Telemetry Major Shift Events: NPO midnight. Treatment Plan: NPO at RI, cholecystectomy with Gen Surg, IV fluids, trend [...] to clear liquids. Treatment Plan: NPO at RI, cholecystectomy with Gen Surg, IV fluids, trend [...] shift note. Outcome: Progressing Flowsheets (Taken 05/26/2024 9004) Outcome Evaluation: Probable cholecystectomy with Gen Surg [...] (Venous Thromboembolism) Risk Recent Flowsheet Documentation Taken 05/26/20241640 by Parker, Yunior J, RN VTE Prevention/Management: SCDs off (sequential compression [...] Recent Flowsheet Documentation Taken 05/26/2024 1000 by Straight, Linda L, RN Infection Prevention: rest/sleep promoted Problem: Pain [...] and CareEverywhere/SureScripts via in-person Changes made to [employer] SUPERVISOR medication list: Added: All Deleted: None Changed: None Allergies reviewed with patient and updates made in EHR: yes Medication History Completed By: Moses Carson RPH 05/26/2024 8:48 AM [employer] SUPER[employer] Med List Medication Sig Last Dose amLODIPine [...] Take 1 tablet by mouth daily. 05/23/2024 Fitzgerald-3 Fatty Acids (FISH OIL) 1200 MG capsule [...] see documentation flowsheets. Pertinent assessments: Care assumed [id number]. A&O x4. Able to correctly answer questions [...] probably ERCP today. Tele runningST 130's per television maintenance man. Pt also constantly pulling tele leads off [...] Recent Flowsheet Documentation Taken 05/26/202444 by Anne Hendreson RN Pain Management Interventions: declines Goal: Readiness [...] Optimize Psychosocial Wellbeing Recent Flowsheet Documentation Taken 05/26/2024 0045 by Anne Henderson RN Supportive Measures: active [...] shift note. Outcome: Progressing Flowsheets (Taken 05/25/2024 4177) Outcome Evaluation: up to floor at 2130, [...] Manage Fall Risk Recent Flowsheet Documentation Taken 05/25/2024 2200 by [place] RN Safety Promotion/Fall Prevention: [...] Flowsheet Documentation Taken 05/25/20242199 by [place] tree deadener Review/Management: medications reviewed documented in this encounter [...] Rios MD LAB - BLOOD ORDER MELYSSA [facility] [address] Lab (1st floor, no room number) [place] [address], [facility] * (ABNORMAL) Sodium (05/28/2024 6:51 AM CDT) Sodium 131(L) 135 - 145 mmol/L 05/28/2024 7:27 AM CDT LABORATORY Blood BLOOD SPECIMEN / Unknown Venipuncture / Unknown 05/28/2024 6:51 AM CDT 05/28/2024 7:02 AM CDT Kenneth Mayen MD LAB - BLOOD ORDERABL ES LABORATORY [facility] [address] [facility] Lab (1st floor, no room number) [place] [address], [facility] * (ABNORMAL) Comprehensive metabolic panel (05/28/2024 6:51 [...] 7:27 AM CDT LABORATORY Comment:eGFR calculated usin 2020 CKD-EPI equation. [...] LAB - BLOOD ORDERABL ES RH LABORATORY [facility] [address] Lab (1st floor, no room number) [place] [address] * (ABNORMAL) CBC with platelets (05/28/2024 [...] - BLOOD ORDERABL ES Performing Organization Address City/[facility]/ZIP Co de Phone Number [facility] [address] Lab (1st floor, no room number) [address] * (ABNORMAL) Sodium (05/27/2024 11:40 PM CDT) Sodium 129(L) 135 - 145 mmol/L 05/28/2024 12:02 AM CDT RH LABORATORY Blood BLOOD SPECIMEN / Unknown Venipuncture / Unknown 05/27/2024 11:40 PM CDT 05/27/2024 11:44 PM CDT Kenneth Mayen MD LAB - BLOOD ORDERABL ES Performing Organization Address [facility]/ZIP Co de Phone Number [facility] [address] Lab (1st floor, no room number) [address] * (ABNORMAL) Sodium (05/27/2024 5:50 PM CDT) Sodium 125(L) 135 - 145 mmol/L 05/27/2024 6:19 PM CDT RH LABORATORY Blood STRUCTURE OF LEFT UPPER LIMB / Unknown Venipuncture / Unknown 05/27/2024 5:50 PM CDT 05/27/2024 5:54 PM CDT Kenneth Mayen MD LAB - BLOOD ORDERABL ES [facility] [address] Lab (1st floor, no room number) [address] * (ABNORMAL) Sodium (05/27/2024 1:50 PM CDT) Sodium 123(L) 135 - 145 mmol/L 05/27/2024 2:32 PM CDT RH LABORATORY Blood STRUCTURE OF RIGHT UPPER LIMB / Unknown Venipuncture / Unknown 05/27/2024 1:50 PM CDT 05/27/2024 1:59 PM CDT Kenneth Mayen MD LAB - BLOOD ORDERABL ES Performing Organization Address City/[facility]/ZIP Co de Phone Number [facility] [address] Lab (1st floor, no room number) [place] [address], [facility] * Magnesium (05/27/2024 6:25 AM CDT) Magnesium 1.9 1.7 - 2.3 mg/dL 05/27/2024 8:21 AM CDT RH LABORATORY Blood STRUCTURE OF RIGHT UPPER LIMB / Unknown Venipuncture / Unknown 05/27/2024 6:25 AM CDT 05/27/2024 6:38 AM CDT Dorita Thompson MD LAB - BLOOD ORDERABL ES Performing Organization Address [facility]/ZIP Co de Phone Number [facility] [address] Lab (1st floor, no room number) [place] [address], [facility] * (ABNORMAL) Sodium (05/27/2024 6:25 AM CDT) Sodium 123(L) 135 - 145 mmol/L 05/27/2024 7:06 AM CDT RH LABORATORY Blood STRUCTURE OF RIGHT UPPER LIMB / Unknown Venipuncture / Unknown 05/27/2024 6:25 AM CDT 05/27/2024 6:38 AM CDT Kenneth Mayen MD LAB - BLOOD ORDERABL ES [facility] [address] Lab (1st floor, no room number) [place] [phone], [facility] * (ABNORMAL) Comprehensive metabolic panel (05/27/2024 6:25 [...] - BLOOD ORDERABL ES Performing Organization Address City/[facility]/ZIP Co de Phone Number [facility] [address] Lab (1st floor, no room number) [address] [place] [address] * (ABNORMAL) Lipase (05/27/2024 6:25 AM CDT) Lipase 63(H) 13 - 60 U/L 05/27/2024 7:06 AM CDT RH LABORATORY Blood STRUCTURE OF RIGHT UPPER LIMB / Unknown Venipuncture / Unknown 05/27/2024 6:25 AM CDT 05/27/2024 6:38 AM CDT Dorita Thompson MD LAB - BLOOD ORDERABL ES Performing Organization Address [facility] Co de Phone Number [facility] [address] Lab (1st floor, no room number) [address] * (ABNORMAL) CBC with platelets (05/27/2024 [...] - BLOOD ORDERABL ES Performing Organization Address City/[facility]/ZIP Co de Phone Number [facility] [address] Lab (1st floor, no room number) [place] [phone] [place] [address] * (ABNORMAL) Sodium (05/27/2024 1:00 AM CDT) Sodium 127(L) 135 - 145 mmol/L 05/27/2024 1:32 AM CDT RH LABORATORY Blood BLOOD SPECIMEN / Unknown Venipuncture / Unknown 05/27/2024 1:00 AM CDT 05/27/2024 1:04 AM CDT Kenneth Mayen MD LAB - BLOOD ORDERABL ES [facility] [address] Lab (1st floor, no room number) [place] [address] * (ABNORMAL) Sodium (05/26/2024 5:43 PM CDT) Sodium 123(L) 135 - 145 mmol/L 05/26/2024 6:23 PM CDT RH LABORATORY Blood STRUCTURE OF LEFT UPPER LIMB / Unknown Venipuncture / Unknown 05/26/2024 5:43 PM CDT 05/26/2024 5:59 PM CDT Kenneth Mayen MD LAB - BLOOD ORDERABL ES LABORATORY [facility] [address] Lab (1st floor, no room number) [place] [address], [facility] * Osmolality urine (05/26/2024 5:17 PM CDT) [...] LAB - URINE ORDERABL ES UU LABORATORY [facility] [place] [facility] [address] [place] [address] * Sodium random urine (05/26/2024 5:17 [...] Thompson MD LAB - URINE ORDERABL ES [facility] [address] [facility] Lab (1st floor, no room number) [place] [address] * XR ERCP (05/26/2024 2:56 PM CDT) Narrative [facility] - 05/26/2024 2:58 PM CDT This exam was marked as non-reportable because it will not be read by a radiologist or a [place] non-radiologist provider. Jefferson Gama MD IMG DIAGNOSTIC I MAGING ORDERABLES Performing Organization Address City/[facility]/ZIP Co de Phone Number [facility] * ENDOSCOPIC RETROGRADE CHOLANGIOPANCREATOGRAPHY (05/26/2024 1:39 PM CDT) [facility] Patient Name: Car MasoudShannan Calvert ? Procedure Date: 05/26/2024 1:39 PM [...] Exera II Duodenovideoscope (ERCP), Model # ?[id number]-[id number], [facility] # [id number] was introduced ?through the mouth, and used to inject contrast into ?and used to inject contrast into the bile duct. The ?ERCP was accomplished without difficulty. The ?patient tolerated the procedure well. ? Findings: ? The legal paraprofessional film was normal. The esophagus was successfully [...] Note Initiated On: 05/26/2024 1:39 PM MRN: ?[id number] Procedure Date: ? 05/26/2024 1:39:55 PM Total Procedure Duration: 0 hours 25 minutes 28 seconds Estimated Blood Loss: ? Scope In: 2:21:09 PM Scope Out: 2:46:37 PM RADIOLOGY RESULTS 05/26/2024 1:39 PM CDT Provider Not In System PROCEDURES Performing Organization Address [facility]/ZIP Co de Phone Number RADIOLOGY RESULTS * (ABNORMAL) Glucose by meter (05/26/2024 12:26 PM CDT) GLUCOSE BY METER POCT 124(H) 70 - 99 mg/dL 05/26/2024 12:33 PM CDT RH LABORATORY POC Blood, Capillary BLOOD SPECIMEN / Unknown 05/26/2024 12:26 PM CDT 05/26/2024 12:33 PM CDT Seth Rios MD LAB - BEAKER POCT Performing Organization Address [facility] Co de Phone Number LABORATORY [facility] [address] Lab (1st floor, no room number) [address] * (ABNORMAL) Potassium (05/26/2024 12:04 PM CDT) Potassium 3.3(L) 3.4 - 5.3 mmol/L 05/26/2024 12:42 PM CDT LABORATORY Blood STRUCTURE OF RIGHT HAND / Unknown Venipuncture / Unknown 05/26/2024 12:04 PM CDT 05/26/2024 12:19 PM CDT Dorita Thompson MD LAB - BLOOD ORDERABL ES Performing Organization Address City/[facility]/ZIP Co de Phone Number [facility] [address] Lab (1st floor, no room number) [address] * (ABNORMAL) Sodium (05/26/2024 12:04 PM CDT) Sodium 122(L) 135 - 145 mmol/L 05/26/2024 12:45 PM CDT RH LABORATORY Blood STRUCTURE OF RIGHT HAND / Unknown Venipuncture / Unknown 05/26/2024 12:04 PM CDT 05/26/2024 12:19 PM CDT Kenneth Mayen MD LAB - BLOOD ORDERABL ES [facility] [address] Lab (1st floor, no room number) [address] * INR (05/26/2024 9:47 AM CDT) INR 1.10 0.85 - 1.15 05/26/2024 10:12 AM CDT RH LABORATORY Blood STRUCTURE OF RIGHT HAND / Unknown Venipuncture / Unknown 05/26/2024 9:47 AM CDT 05/26/2024 9:56 AM CDT Asuncion Flynn PA-C LAB - BLOOD ORDERABLES Performing Organization Address City/[facility]/ZIP Co de Phone Number [facility] [address] Lab (1st floor, no room number) [address] * TSH with free T4 reflex (05/26/2024 6:49 AM CDT) TSH 1.27 0.30 - 4.20 uIU/mL 05/26/2024 12:29 PM CDT RH LABORATORY Blood STRUCTURE OF RIGHT HAND / Unknown Venipuncture / Unknown 05/26/2024 6:49 AM CDT 05/26/2024 6:59 AM CDT Dorita Thompson MD LAB - BLOOD ORDERABL ES [facility] [address] Lab (1st floor, no room number) [place] [address] * (ABNORMAL) Magnesium (05/26/2024 6:49 AM CDT) [facility] Magnesium 1.5(L) 1.7 - 2.3 mg/dL 05/26/2024 8:55 AM CDT [facility] Blood STRUCTURE OF RIGHT HAND / Unknown Venipuncture / Unknown 05/26/2024 6:49 AM CDT 05/26/2024 6:59 AM CDT Dorita Thompson MD LAB - BLOOD ORDERABL ES LABORATORY [facility] [address] Lab (1st floor, no room number) [place] [id number] * (ABNORMAL) CBC with platelets (05/26/2024 6:49 AM CDT) [facility] WBC Count 9.7 4.0 - 11.0 [...] MD LAB - BLOOD ORDERABL ES LABORATORY [facility] [address] Lab (1st floor, no room number) [place] [address], [facility] * (ABNORMAL) Comprehensive metabolic panel (05/26/2024 6:49 [...] 7:32 AM CDT LABORATORY Comment:eGFR calculated usin 2020 CKD-EPI equation. [...] Wan MD LAB - BLOOD ORDERABL ES [facility] [address] Lab (1st floor, no room number) [place] [address] * (ABNORMAL) Sodium (05/26/2024 12:23 AM CDT) Sodium 126(L) 135 - 145 mmol/L 05/26/2024 1:05 AM CDT LABORATORY Blood STRUCTURE OF FINGER OF RIGHT HAND / Unknown Capillary / Unknown 05/26/2024 12:23 AM CDT 05/26/2024 12:46 AM CDT Sulaiman Wan MD LAB - BLOOD ORDERABL ES [facility] [address] Lab (1st floor, no room number) [place] [id number] documented in this encounter Visit Diagnoses Diagnosis Calculus of bile duct with acute cholecystitis and obstruction- Primary Cholangitis (H) Cholangitis Duodenal ulcer without hemorrhage or perforation and without obstruction Duodenal ulcer, unspecified as acute or chronic, without hemorrhage, perforation, or obstruction Choledocholithiasis with obstruction Calculus of bile duct without mention of cholecystitis, with obstruction Calculus of bile duct with acute cholecystitis and obstruction documented in this encounter Administered Medications [...] on 05/28/24 at 1030, Indications: Intra-Abdominal Infection finasteride (PROSCAR) tablet 5 mg 5 mg, [...] 180 mmHg, Starting on Thu05/25/24 at 2306 iopamidol 61% (ISOVUE 300) 50 mL + NaCl 0.9% 50 mL PRN, Starting on Yara 05/26/24 at 1445, Intra-procedure $Given 05/26/2024 2:45 PM CDT 38 ml given Operative Site/Surgi emma Site metoprolol tartrate (LOPRESSOR) tablet 25 mg 25 [...] $Given 05/26/2024 12:44 AM CDT 3 mLs tamsulosin (FLOMAX) capsule 0.4 mg 0.4 mg, [...] Yara 05/26/24 at 1630, On hold since Yara 05/26/2024 at 1605 until manually unheld 1605 (Held by provider - Provider: Dorita Thompson MD - Reason: Other)1630 (Automatically Held) 0900 (Automatically Held) 0900 (Automatically Held)1326 (Unheld by provider - Provider: Orders Generic Provider) amoxicillin-clavulanate (AUGMENTIN) 875-125 MG per tablet 1 tablet Routine, 1 tablet, Oral, EVERY 12 HOURS SCHEDULED, First dose on 05/28/24 at 1030, Indications: Intra-Abdominal Infection 1030 (Canceled [...] 1021 ($Given - Provider: Concepcion Rosado APRN CERNER ANALYST) famotidine (PEPCID) tablet 20 mg (CANCELED) 20 mg, Oral, 2 TIMES DAILY, First dose on Yara 05/26/24 at 2100 2056 ($Given - Provider: Yunior Canales RN) 0815 (Auto Hold - Provider: Orders Generic Provider - Reason: Transfer to a procedural area)0900 (Automatically Held - Provider: Orders Generic Provider)1430 (Unhold - Provider: Orders Generic Provider)1505 ($Given - Provider: tSone Hall RN - Comment: pt did not [...] 0820 ($Given - Provider: Stone Hall RN) indocyanine green (IC-GREEN) injection 2.5 mg [...] 0820 ($Given - Provider: Stone Hall, RN) piperacillin-tazobactam (ZOSYN) 3.375 g vial to attach [...] oral dose 0908 ($Given - Provider: Linda Walters RN) sodium chloride (PF) 0.9% PF flush 3 [...] Generic Provider)1445 (Canceled Entry - Provider: Stone Hall, RN)2225 ($Given - Provider: Yunior Canales RN)2330 (Canceled Entry - Provider: Yunior Canales RN) 0822 ($Given - Provider: Stone Hall, YASEMIN) tamsulosin (FLOMAX) capsule 0.4 mg [...] 0820 ($Given - Provider: Stone Hall, YASEMIN) triamterene-HCTZ (MAXZIDE-25) 37.5-25 MG per tablet 1 [...] 1601 0044 ($New Bag - Provider: Anne Henderson, RN)1210 (Rate/Dose Change - Provider: Linda Walters RN) lactated ringers infusion (CANCELED) at 10 mL/hr, Intravenous, CONTINUOUS, IF patient NOT on dialysis., Pre-procedure, Starting on Thu05/26/24 at 1230, Until Thu05/26/24 at 1453 1424 ($New Bag - Provider: Concepcion Rosado, SETTER OFF CERNER ANALYST)1447 (Anesthesia Volume Adjustment - Provider: Jaja Hector, SETTER OFF CERNER ANALYST) sodium chloride 0.9 % infusion (CANCELED) at 75 mL/hr, Intravenous, CONTINUOUS, Starting on Thu05/26/24 at 1630, Until Thu05/26/24 at 1657 1631 ($New Bag - Provider: Yunior Canales, YASEMIN) sodium chloride 0.9 % infusion () at 75 mL/hr, Intravenous, CONTINUOUS, Please stop saline after this bag is completed due to supply shortage. , Starting on Thu05/26/24 at 1700, Until Thu05/27/24 at 0559 1716 (Rate/Dose Verify - Provider: Yunior Canales, YASEMIN) 0602 (Stopped - Provider: Tristan Bourgeois RN) [...] 6 HOURS PRN, nausea, vomiting, Starting on 05/25/24 at 2306, This is Step 1 of [...] BP greater than 180 mmHg, Starting on 05/25/24 at 2306 Or hydrALAZINE (APRESOLINE) injection 10 mgJump to med 10 mg, Intravenous, EVERY 4 HOURS PRN, high blood pressure, for systolic BP greater than 180 mmHg, Administer over 1 Minutes, Starting on 05/25/24 at 2306 Group 2: naloxone (NARCAN) injection [...] stools. documented in this encounter Care Teams Net Front End Developer Relationship Specialty Start Date End Date Dustin Victor MD [facility] [address] [place] [id number] PCP - General Family Medicine 04/01/23 documented as of this encounter
== END 2024-05-25 20:44 | disposition home or self-care (01) ==
LOC: AMB 05-29 14:11
PROVIDERS: PCP Family Medicine; Visit Provider Emergency Medicine Emergency Medical Services
DX: K80.50 Calculus of bile duct without cholangitis or cholecystitis without obstruction (principal); K81.0 Acute cholecystitis; E87.1 Hypo-osmolality and hyponatremia; R65.10 Systemic inflammatory response syndrome (SIRS) of non-infectious origin without acute organ dysfunction
CPT/HCPCS: A0425; A0429

== ENCOUNTER 2024-06-02 08:52 | Outpatient (CLI) | payer MEDICARE, OTHER, SELFPAY ==
--- OUTSIDE RECORDS SUMMARY | 2024-06-03 09:28 | XMS_ITS | Continuity of Care Document ---
Author Name [facility] Organization [facility] Care Team Providers Care Structural Designer Name Role Phone [facility] Unavailable Unavailable Problems Combined list of problems [...] 1 year (ordered by Ms Hernandez). [facility] Chronic kidney disease stage 3A Active Condition N. [facility] Chronic low back pain Active Condition N. [facility] Coronary atherosclerosis Active Condition N. [facility] Ex-cigarette smoker Active Condition [facility] Exposure to potentially hazardous substance Active Condition [facility] Exposure to potentially hazardous substance ([facility] [id number]) Active Condition Nov 26 4 Entered By: JAIME ROTHMAN Comment: Entered automatically through [facility] Problem List documentation program [facility] Hearing loss Active Condition [facility] Hematuria Active Condition [facility] Herbicide poisoning Active Condition [facility] History of heartburn Active Condition [facility] Hyperlipidemia Active Condition [facility] Hypertension Active Condition [facility] Lower urinary tract symptoms due to benign prostatic hypertrophy [facility] Multiple nodules of lung Active Condition Aug 07, 2020 Entered By: JEFFERSON KOCH Comment: LDCT 08/06/20: Rec repeat in one year (ordered). [facility] Obesity Active Condition [facility] Osteoarthritis Active Condition [facility] Tobacco user Active Condition Jul 05, 2020 Entered By: JEFFERSON KOCH Comment: Quit ~ 2013. [facility] Vitamin D deficiency Active Condition [facility] Diarrhea (SNOMED CT [id number]) Inactive Condition 07/12/2014 [facility] Knee pain Inactive Condition 07/01/2018 [facility] Lactose intolerance Inactive Condition 07/01/2018 [facility] Seborrheic dermatitis Inactive Condition 07/01/2018 [facility] Tinnitus Inactive Condition 07/01/2018 [facility] Diagnosis: ICD-10-CM Z48.89 Encounter for other specified surgical aftercare Active Diagnosis [facility] Diagnosis: ICD-10-CM H02.34 Blepharochalasis left upper eyelid Active Diagnosis [facility] Diagnosis: ICD-10-CM N40.1 Benign prostatic hyperplasia with lower urinary tract symp Active Diagnosis [facility] Diagnosis: ICD-10-CM Z71.9 Counseling, unspecified Active Diagnosis [facility] Diagnosis: ICD-10-CM H02.834 Dermatochalasis of left upper eyelid Active Diagnosis [facility] Diagnosis: ICD-10-CM G47.33 Obstructive sleep apnea (adult) (pediatric) Active Diagnosis N[facility] Diagnosis: ICD-10-CM R31.0 Gross hematuria Active Diagnosis 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 Diagnosis [facility] Diagnosis: ICD-10-CM Z01.818 Encounter for other preprocedural examination Active Diagnosis [facility] Diagnosis: ICD-10-CM Z01.810 Encounter for preprocedural cardiovascular examination Active Diagnosis [facility] Diagnosis: ICD-10-CM H57.813 Brow ptosis, bilateral Active Diagnosis [facility] Medications Combined list of outpatient medications from [...] PRN ORAL ACTIVE HLAING,MO MO 2014 [facility] [place] ACETAMINOPH EN 500MG TAB TAKE TWO TABLETS BY MOUTH EVERY 6 HOURS NEEDED FOR PAIN ORAL 03/28/2023 [id number] 3 Beny DOUGLAS 2022 40 [facility] AMLODIPINE BESYLATE 2.5MG TAB TAKE ONE TABLET BY MOUTH EVERY 24 HOURS FOR BLOOD PRESSURE ORAL ACTIVE 07/13/2024 [id number] 4 Carrie KUMAR 2022 90 [facility] AMLODIPINE TAB TAKE BY MOUTH ORAL ACTIVE BRENNA RIOS 2022 [facility] ASPIRIN 81MG TAB,CHEWABL E CHEW ONE TABLET BY MOUTH ORAL ACTIVE BRENNA RIOS 2022 [facility] ASPIRIN 81MG TAB,EC TAKE ONE TABLET BY MOUTH ONE TIME EACH DAY ORAL ACTIVE CIELO SANTORO 2017 N[facility] ATORVASTATI N [place] 40MG TAB TAKE ONE TABLET BY MOUTH EVERY DAY ORAL ACTIVE BRENNA RIOS 2022 [facility] ATORVASTATI N [place] 80MG TAB TAKE ONE-HALF TABLET BY MOUTH ONE TIME EACH DAY FOR CHOLESTE ROL ORAL ACTIVE 07/13/2024 [id number] 4 Carrie KUMAR 2022 45 [facility] CARBOXYMETH YLCELLULOSE NA 0.25% SOLN,OPH INSTILL 2 DROPS IN BOTH EYES TWICE A DAY NEEDED FOR EYE DRYNESS AND IRRITATI ON OPHTHA LMIC 04/08/2024 [id number] 3 Beny DOUGLAS 2022 15 [facility] CELECOXIB 200MG CAP TAKE ONE CAPSULE BY MOUTH TWICE A DAY FOR PAIN ORAL 04/01/2024 [id number] 4 NILESH HERNANDEZ 2023 14 [facility] CEPHALEXIN 500MG CAP TAKE ONE CAPSULE BY MOUTH EVERY 6 HOURS FOR INFECTIO US PROPHYLA XIS ORAL 04/01/2024 [id number] 4 NILESH HERNANDEZ 2023 12 [facility] CHOLECALCIF FRANCINE 25MCG (1,000UNIT) TAB TAKE TWO TABLETS BY MOUTH ORAL ACTIVE BRENNA RIOS [address] [facility] CYANOCOBALA MIN TAB TAKE ACTIVE BRENNA RIOS [address] DEXAMETHASO NE NA PHOSPHATE 0.1% SOLN,OPH INSTILL 2 DROPS IN OPERATIV E EYE EVERY 6 HOURS FOR INFLAMMA TION OPHTHA LMIC 03/28/2023 [id number] 3 Beny DOUGLAS 2022 5 [facility] DICLOFENAC NA 1% GEL,TOP APPLY 4 GRAMS TOPICALL Y FOUR TIMES A DAY NEEDED TO KNEES FOR PAIN (MEASURE DOSE USING SUPPLIED DOSING CARD) TOPICA L ACTIVE 09/03/2024 [id number] 4 Carrie KUMAR 2023 200 [facility] ERYTHROMYCI N 0.5% OINT,OPH APPLY A THIN LAYER TO INCISION (S) TO LEFT EYE FOUR TIMES A DAY TO PREVENT INFECTIO N OPHTHA LMIC 04/01/2024 [id number] 4 NILESH HERNANDEZ K 2023 1 [facility] ERYTHROMYCI N 0.5% OINT,OPH APPLY A THIN LAYER TO INCISION (S) TO OPERATIV E EYE FOUR TIMES A DAY FOR WOUND CARE OPHTHA LMIC 02/27/2024 [id number] 3 Beny DOUGLAS 2022 4 [facility] FAMOTIDINE 20MG TAB TAKE ONE TABLET BY MOUTH TWICE A DAY ORAL ACTIVE FIDE ROSEN 2018 [facility] FAMOTIDINE TAB TAKE ACTIVE BRENNA RIOS [address] [facility] FINASTERIDE 5MG TAB TAKE ONE TABLET BY MOUTH ONE TIME EACH DAY FOR PROSTATE ORAL ACTIVE 02/18/2025 [id number] 4 Masoud PARK 2023 90 [facility] FINASTERIDE 5MG TAB TAKE ONE TABLET BY MOUTH ONE TIME EACH DAY FOR PROSTATE ORAL DISCONT INUED (EDIT) 09/11/2024 [id number] 4 Masoud RICHARDSON THO 2023 30 [facility] [place] [facility] FISH OIL 1000MG (500MG DHA/EPA) CAP,ORAL TAKE 2 CAPSULES BY MOUTH TWICE A DAY ORAL ACTIVE Carrie KUMAR 2022 [facility] HYDROCHLORO THIAZIDE 25MG/LOSART AN POTASSIUM 100MG TAB TAKE 1 TABLET BY MOUTH ONE TIME EACH DAY FOR HIGH BLOOD PRESSURE ORAL DISCONT INUED 02/24/2024 [id number] 3 SAADIA COE E 2022 60 [facility] MARINE LIPID (FISH OIL) CAP,ORAL TAKE BY MOUTH ORAL ACTIVE BRENNA RIOS 2022 [facility] METOPROLOL TARTRATE 25MG TAB TAKE ONE TABLET BY MOUTH EVERY 12 HOURS FOR BLOOD PRESSURE ORAL ACTIVE 07/13/2024 [id number] 4 Carrie KUMAR 2022 180 [facility] METOPROLOL TARTRATE TAB TAKE BY MOUTH TWICE A DAY ORAL ACTIVE BRENNA RIOS [address] [facility] METRONIDAZO LE 0.75% CREAM,TOP APPLY TOPICALL Y TOPICA L ACTIVE BRENNA RIOS [address] [facility] NIACIN TAB TAKE ACTIVE Enrique RIOS 2022 [facility] NITROGLYCER IN TAB,SUBLING UAL DISSOLVE UNDER THE TONGUE EVERY 5 MINUTES FOR UP TO 3 DOSES IF NEEDED NEEDED SUBLIN GUAL ACTIVE BRENNA RIOS [address] [facility] [place] [facility] NON [facility] MED NOT LISTED MISCELLANEO US USE ACTIVE BRENNA RIOS [address] [facility] [place] [facility] OXYCODONE HCL 5MG TAB TAKE ONE TABLET BY MOUTH EVERY 4 HOURS NEEDED FOR PAIN ORAL 04/01/2024 [id number] 4 NILESH HERNANDEZ 2023 30 [place] [facility] OXYCODONE HCL 5MG TAB TAKE ONE TABLET BY MOUTH EVERY 4 HOURS NEEDED FOR PAIN ORAL 03/28/2023 [id number] 3 Beny DOUGLAS 2022 30 [facility] POLYVINYL ALCOHOL 1.4% SOLN,OPH INSTILL 2 DROPS IN OPERATIV E EYE EVERY 2 HOURS NEEDED FOR EYE IRRITATI ON OPHTHA LMIC ACTIVE 03/03/2025 [id number] 4 CAYNILESH SEGURA K 2023 60 [facility] POLYVINYL ALCOHOL 1.4% SOLN,OPH INSTILL 2 DROPS IN BOTH EYES EVERY HOUR NEEDED FOR EYE IRRITATI ON OPHTHA LMIC 02/27/2024 [id number] 3 Beny DOUGLAS 2022 15 [facility] PROBIOTIC [NON-VA] CAP,ORAL TAKE ACTIVE CIELO SANTORO [place] 2014 [facility] TAMSULOSIN HCL 0.4MG CAP TAKE ONE CAPSULE BY MOUTH ONE TIME EACH DAY FOR URINATIO N ORAL ACTIVE 02/18/2025 [id number] 4 Masoud PARK K 2023 90 [facility] [facility] TAMSULOSIN HCL 0.4MG CAP TAKE ONE CAPSULE BY MOUTH ONE TIME EACH DAY FOR URINATIO N ORAL DISCONT INUED (EDIT) 09/11/2024 [id number] 4 Masoud RICHARDSON 2023 30 [facility] [place] [facility] TRIAMCINOLO NE 0.1% OINT,TOP APPLY TOPICALL Y TOPICA L ACTIVE BRENNA RIOS 2022 [facility] Allergies, Adverse Reactions, Alerts Combined list of allergies from Department of Defense and Veterans Affairs facilities. It does not include entries that were removed or entered in error. Substance Category Reaction Severity Reaction type Status Date Reported Comments Source LISINOPRIL Propensity to adverse reactions to drug (finding) Cough active 3 [facility] Immunizations Combined list of available immunizations from the Department of Defense and Veterans Affairs facilities. Immunization Series Date Given Administered By Site Reaction Lot Number CVX Code Drug Commercial Producer Status Comments Source INFLUENZA, UNSPECIFIED FORMULATION 2022 88 complet ed [facility] INFLUENZA, UNSPECIFIED FORMULATION 2021 88 complet ed [facility] COVID-19 (PFIZER), MRNA, LNP-S, PF, 30 MCG/0.3 ML DOSE, FABY-SUCROSE (AGES 12+ YEARS) 4 2021 217 complet ed [facility] COVID-19 (PFIZER), MRNA, LNP-S, PF, 30 MCG/0.3 ML DOSE 3 2020 208 complet ed [facility] INFLUENZA, UNSPECIFIED FORMULATION 2020 88 complet ed [facility] ZOSTER RECOMBINANT 2020 187 complet ed [facility] COVID-19 (PFIZER), MRNA, LNP-S, PF, 30 MCG/0.3 ML DOSE 2 2020 208 complet ed PFR; [id number]; 1 [facility] COVID-19 (PFIZER), MRNA, LNP-S, PF, 30 MCG/0.3 ML DOSE 1 2020 208 complet ed PFR; [id number]; 1 [facility] TDAP 2019 115 complet ed [facility] ZOSTER RECOMBINANT 2019 187 complet ed [facility] INFLUENZA, UNSPECIFIED FORMULATION 2019 88 complet ed [facility] INFLUENZA, INJECTABLE, QUADRIVALENT, PRESERVATIVE FREE 2017 150 complet ed [facility] INFLUENZA, INJECTABLE, QUADRIVALENT, PRESERVATIVE FREE 2016 150 complet ed [facility] INFLUENZA, SEASONAL, INJECTABLE, PRESERVATIVE FREE 2015 140 complet ed [facility] INFLUENZA, SEASONAL, INJECTABLE, PRESERVATIVE FREE 2014 140 complet ed [facility] PNEUMOCOCCAL CONJUGATE PCV 13 2014 133 complet ed [facility] FLU,3 YRS (HISTORICAL) 2013 88 complet ed [facility] Varicella Zoster (HISTORICAL) 2013 complet ed [facility] PNEUMOCOCCAL, UNSPECIFIED FORMULATION 2012 109 complet ed [facility] PNEUMOCOCCAL POLYSACCHARID E PPV23 2012 33 complet ed [facility] INFLUENZA, UNSPECIFIED FORMULATION 2012 88 complet ed [facility] INFLU[facility], UNSPECIFIED FORMULATION 2011 88 complet ed [facility] TD(ADULT) UNSPECIFIED FORMULATION 2009 139 complet ed [facility] [place] [facility] Results Combined list of recent [...] 21, 2023 01:47 PM Reporting Lab: [facility] [address] [facility] [address] Performing Lab: [facility] [address] [facility] [address] [facility] CREATINI NE(with eGFR) GLOMERULAR FILTRATION RATE/1.73 SQ [...] 21, 2023 01:47 PM Reporting Lab: [facility] [address] [place] [address] Performing Lab: [facility] [address] [place] [address] [facility] TSH-G,LC ,J,T THYROTROPI N [UNITS/VOL UME] IN [...] 10, 2022 10:59 AM Reporting Lab: [facility] [address] [place] [address] Performing Lab: [facility] [address] [place] [address] [facility] LIPID PANEL CHOLESTERO L [MASS/VOLU ME] IN [...] 10, 2022 10:59 AM Reporting Lab: [facility] [address] [facility] [address] Performing Lab: [facility] [address] [place] [phone] [facility] LIPID PANEL TRIGLYCERI DE [MASS/VOLU ME] IN [...] 10, 2022 10:59 AM Reporting Lab: [facility] [address] [place] [phone] Performing Lab: [facility] [address] [facility] [address] [facility] LIPID PANEL CHOLESTERO L IN LDL [MASS/VOLU [...] 10, 2022 10:59 AM Reporting Lab: [facility] [address] [facility] [address] Performing Lab: [facility] [address] [place] [phone] [place] [address] LIPID PANEL CHOLESTERO L IN HDL [MASS/VOLU [...] 10, 2022 10:59 AM Reporting Lab: [facility] [address] [place] [address] Performing Lab: [facility] [address] THE [address] LIPID PANEL CHOLESTERO L IN LDL [...] 10, 2022 10:59 AM Reporting Lab: [facility] [address] [place] [address] Performing Lab: [facility] [address] [place] [phone] [place] [address] B12 COBALAMIN (VITAMIN B12) [MASS/VOLU ME] IN SERUM OR PLASMA 836 pg/mL 240 - 900 07/08 Specimen Type: SERUM No comment entered. Ordering Provider: TETE PACHECO Report Released Date/Time: Jun 23, 2023 02:55 PM Reporting Lab: [facility] [address] [facility] [address] Performing Lab: [facility] [address] [facility] [address] [facility] TOTAL, T D VITAMIN D+METABOLI EVERARDO [MASS/VOLU [...] Jun 23, 2023 02:55 PM Reporting Lab: [place] [address] Performing Lab: [place] [address] [facility] COMPREHE NSIVE METABOLI C PANEL UREA NITROGEN [...] 10, 2022 10:59 AM Reporting Lab: [facility] [address] [facility] [address] Performing Lab: [facility] [address] THE [address] COMPREHE NSIVE METABOLI C PANEL SODIUM [...] 10, 2022 10:59 AM Reporting Lab: [facility] [address] [place] [address] Performing Lab: [facility] [address] [place] [address] [facility] COMPREHE NSIVE METABOLI C PANEL CHLORIDE [MOLES/VOL [...] 10, 2022 10:59 AM Reporting Lab: [facility] [address] [place] [address] Performing Lab: [facility] [address] [place] [address] [facility] COMPREHE NSIVE METABOLI C PANEL CARBON DIOXIDE, [...] 10, 2022 10:59 AM Reporting Lab: [facility] [address] [place] [phone] Performing Lab: [facility] [address] [facility] [address] [facility] COMPREHE NSIVE METABOLI C PANEL PROTEIN [MASS/VOLU [...] 10, 2022 10:59 AM Reporting Lab: [facility] [address] [facility] [address] Performing Lab: [facility] [address] [place] [phone] [facility] COMPREHE NSIVE METABOLI C PANEL ALBUMIN [MASS/VOLU [...] 10, 2022 10:59 AM Reporting Lab: [facility] [address] [facility] [address] Performing Lab: [facility] [address] [facility] [address] [facility] COMPREHE NSIVE METABOLI C PANEL BILIRUBIN. TOTAL [...] 10, 2022 10:59 AM Reporting Lab: [facility] [address] [facility] [address] Performing Lab: [facility] [address] [facility] [address] [facility] COMPREHE NSIVE METABOLI C PANEL ALKALINE PHOSPHATAS [...] 10, 2022 10:59 AM Reporting Lab: [facility] [address] [facility] [address] Performing Lab: [facility] [address] [facility] [address] [facility] COMPREHE NSIVE METABOLI C PANEL ASPARTATE AMINOTRANS [...] 10, 2022 10:59 AM Reporting Lab: [facility] [address] [place] [phone] Performing Lab: [facility] [address] [facility] [address] [facility] COMPREHE NSIVE METABOLI C PANEL ALANINE AMINOTRANS [...] 10, 2022 10:59 AM Reporting Lab: [facility] [address] [place] [address] Performing Lab: [facility] [address] [facility] [address] [facility] COMPREHE NSIVE METABOLI C PANEL ANION GAP [...] 10, 2022 10:59 AM Reporting Lab: [facility] [address] [facility] [address] Performing Lab: [facility] [address] [facility] [address] [facility] COMPREHE NSIVE METABOLI C PANEL POTASSIUM [MOLES/VOL [...] 10, 2022 10:59 AM Reporting Lab: [facility] [address] [place] [address] Performing Lab: [facility] [address] [place] [address] [facility] COMPREHE NSIVE METABOLI C PANEL CALCIUM [MASS/VOLU [...] 10, 2022 10:59 AM Reporting Lab: [facility] [address] [place] [address] Performing Lab: [facility] [address] [place] [address] [facility] COMPREHE NSIVE METABOLI C PANEL CREATININE [MASS/VOLU [...] 10, 2022 10:59 AM Reporting Lab: [facility] [address] [place] [address] Performing Lab: [facility] [address] [place] [address] [facility] COMPREHE NSIVE METABOLI C PANEL GLUCOSE [MASS/VOLU [...] 10, 2022 10:59 AM Reporting Lab: [facility] [address] [place] [address] Performing Lab: [facility] [address] [place] [address] [facility] COMPREHE NSIVE METABOLI C PANEL GLOMERULAR FILTRATION [...] 10, 2022 10:59 AM Reporting Lab: [facility] [address] [place] [address] Performing Lab: [facility] [address] [place] [address] [facility] HEMOGLOB IN %A1C PROFILE HEMOGLOBIN A1C/HEMOGL OBIN.TOTAL [...] 23, 2023 02:55 PM Reporting Lab: [facility] [address] [place] [address] Performing Lab: [facility] [address] [place] [address] [facility] MICROALB UMINURIA (ANUP) CREATININE [MASS/VOLU ME] IN URINE 67.1 mg/dL 07/08 Specimen Type: URINE Comment: ANUP/CR RATIO not calculated when ANUP <12.0 or U.CREAT <15 Ordering Provider: TETE PACHECO Report Released Date/Time: Jun 23, 2023 02:55 PM Reporting Lab: [facility] [address] [place] [address] Performing Lab: [facility] [address] [place] [address] [facility] MICROALB UMINURIA (ANUP) PROTEIN [MASS/VOLU ME] IN URINE 6 mg/dL <12 - 12 07/08 Specimen Type: URINE Comment: ANUP/CR RATIO not calculated when ANUP <12.0 or U.CREAT <15 Ordering Provider: TETE PACHECO Report Released Date/Time: Jun 23, 2023 02:55 PM Reporting Lab: [facility] [address] [place] [address] Performing Lab: [facility] [address] THE [address] [facility] MICROALB UMINURIA (ANUP) MICROALBUM IN/CREATIN INE [MASS RATIO] IN URINE cancmg/g {creat} 07/08 Specimen Type: URINE Comment: ANUP/CR RATIO not calculated when ANUP <12.0 or U.CREAT <15 Ordering Provider: TETE PACHECO Report Released Date/Time: Jun 23, 2023 02:55 PM Reporting Lab: [facility] [place] [address] [place] [address] Performing Lab: [facility] [place] [address] [place] [address] [facility] [place] MICROALB UMINURIA (ANUP) MICROALBUM IN [MASS/VOLU ME] IN URINE <12.0mg/ L 07/08 Specimen Type: URINE Comment: ANUP/CR RATIO not calculated when ANUP <12.0 or U.CREAT <15 Ordering Provider: TETE PACHECO Report Released Date/Time: Jun 23, 2023 02:55 PM Reporting Lab: [facility] [place] [address] [place] [address] Performing Lab: [facility] [place] [address] [place] [address] [facility] [place] PSA PROSTATE SPECIFIC AG [MASS/VOLU ME] IN [...] 23, 2023 03:42 PM Reporting Lab: [facility] [place] [address] [place] [address] Performing Lab: [facility] [place] [address] [place] [address] [facility] [place] URINALYS IS COLOR OF URINE Light-Ye llow 07/08 Specimen Type: URINE No comment entered. Ordering Provider: TETE PACHECO Report Released Date/Time: Jun 23, 2023 02:55 PM Reporting Lab: [facility] [address] [place] [address] Performing Lab: [facility] [address] [place] [address] [facility] URINALYS IS SPECIFIC GRAVITY OF URINE 1.010 1.003 - 1.030 07/08 Specimen Type: URINE No comment entered. Ordering Provider: TETE PACHECO Report Released Date/Time: Jun 23, 2023 02:55 PM Reporting Lab: [facility] [address] [place] [address] Performing Lab: [facility] [address] [place] [address] [facility] URINALYS IS BILIRUBIN. TOTAL [PRESENCE] IN URINE BY TEST STRIP Negative mg/dL 07/08 Specimen Type: URINE No comment entered. Ordering Provider: TETE PACHECO Report Released Date/Time: Jun 23, 2023 02:55 PM Reporting Lab: [facility] [address] [place] [address] Performing Lab: [facility] [address] [place] [address] [facility] URINALYS IS GLUCOSE [MASS/VOLU ME] IN URINE BY TEST STRIP Negative mg/dL 07/08 Specimen Type: URINE No comment entered. Ordering Provider: TETE PACHECO Report Released Date/Time: Jun 23, 2023 02:55 PM Reporting Lab: [facility] [address] [place] [address] Performing Lab: [facility] [address] [place] [address] [facility] URINALYS IS GLUCOSE [MASS/VOLU ME] IN URINE BY TEST STRIP Negative mg/dL 07/08 Specimen Type: URINE No comment entered. Ordering Provider: TETE PACHECO Report Released Date/Time: Jun 23, 2023 02:55 PM Reporting Lab: [facility] [address] [place] [address] Performing Lab: [facility] [address] [place] [address] [facility] URINALYS IS PROTEIN [MASS/VOLU ME] IN URINE BY TEST STRIP Negative mg/dL 07/08 Specimen Type: URINE No comment entered. Ordering Provider: TETE PACHECO Report Released Date/Time: Jun 23, 2023 02:55 PM Reporting Lab: [facility] [address] [facility] [place] [address] Performing Lab: [facility] [address] [facility] [place] [address] [facility] URINALYS IS PH OF URINE BY TEST STRIP 7.0 [pH] 5.0 - 9.0 07/08 Specimen Type: URINE No comment entered. Ordering Provider: TETE PACHECO Report Released Date/Time: Jun 23, 2023 02:55 PM Reporting Lab: [facility] [address] [facility] [place] [address] Performing Lab: [facility] [address] [place] [address] [facility] URINALYS IS LEUKOCYTES [#/AREA] IN URINE SEDIMENT BY MICROSCOPY HIGH POWER FIELD 2 /[HPF] 0 - 5 07/08 Specimen Type: URINE No comment entered. Ordering Provider: TETE PACHECO Report Released Date/Time: Jun 23, 2023 02:55 PM Reporting Lab: [facility] [address] [place] [address] Performing Lab: [facility] [address] [place] [address] [facility] URINALYS IS MUCUS [PRESENCE] IN URINE SEDIMENT BY LIGHT MICROSCOPY RARE/[HP F] 07/08 Specimen Type: URINE No comment entered. Ordering Provider: TETE PACHECO Report Released Date/Time: Jun 23, 2023 02:55 PM Reporting Lab: [facility] [address] [place] [address] Performing Lab: [facility] [address] [place] [address] [facility] URINALYS IS ERYTHROCYT ES [#/AREA] IN URINE SEDIMENT BY MICROSCOPY HIGH POWER FIELD 60 /[HPF] 0 - 4 07/08 H Specimen Type: URINE No comment entered. Ordering Provider: TETE APCHECO Report Released Date/Time: Jun 23, 2023 02:55 PM Reporting Lab: [facility] [address] [place] [address] Performing Lab: [facility] [address] [place] [address] [facility] URINALYS IS HEMOGLOBIN [PRESENCE] IN URINE BY TEST STRIP 0.50 mg/dL 07/08 Specimen Type: URINE No comment entered. Ordering Provider: TETE PACHECO Report Released Date/Time: Jun 23, 2023 02:55 PM Reporting Lab: [facility] [address] [place] [address] Performing Lab: [facility] [address] [place] [address] [facility] URINALYS IS NITRITE [PRESENCE] IN URINE BY TEST STRIP Negative 07/08 Specimen Type: URINE No comment entered. Ordering Provider: TETE PACHECO Report Released Date/Time: Jun 23, 2023 02:55 PM Reporting Lab: [facility] [address] [place] [address] Performing Lab: [facility] [address] [place] [address] [facility] URINALYS IS LEUKOCYTE ESTERASE [PRESENCE] IN URINE BY TEST STRIP Negative 07/08 Specimen Type: URINE No comment entered. Ordering Provider: TETE PACHECO Report Released Date/Time: Jun 23, 2023 02:55 PM Reporting Lab: [facility] [address] [place] [address] Performing Lab: [facility] [address] [place] [address] [facility] URINALYS IS CLARITY OF URINE Clear 07/08 Specimen Type: URINE No comment entered. Ordering Provider: TETE PACHECO Report Released Date/Time: Jun 23, 2023 02:55 PM Reporting Lab: [facility] [address] [place] [address] Performing Lab: [facility] [address] [place] [address] [facility] URINALYS IS UROBILINOG EN [MASS/VOLU ME] IN URINE BY TEST STRIP Normalmg /dL 0.0 - 1.99 07/08 Specimen Type: URINE No comment entered. Ordering Provider: TETE PACHECO Report Released Date/Time: Jun 23, 2023 02:55 PM Reporting Lab: [facility] [address] [place] [address] Performing Lab: [facility] [address] [place] [address] [facility] URINALYS IS SPERMATOZO A [#/VOLUME] IN URINE BY AUTOMATED COUNT OCC/[HPF ] 07/08 Specimen Type: URINE No comment entered. Ordering Provider: TETE PACHECO Report Released Date/Time: Jun 23, 2023 02:55 PM Reporting Lab: [facility] [address] [place] [address] Performing Lab: [facility] [address] [place] [address] [facility] Vital Signs Combined list of inpatient and outpatient Vital Signs from Department of Defense and Veterans Affairs, ranging from 12 months to all on record, depending upon the facility. Vital Sign Value Date Comments Source SYSTOLIC BLOOD PRESSURE 135 03/03/2024 09:35:36 [facility] DIASTOLIC BLOOD PRESSURE 86 03/03/2024 09:35:36 [facility] PULSE OXIMETRY 98 03/03/2024 09[facility]35:36 [facility] TEMPER[facility] 97.2 03/03/2024 09:35:36 [place] [facility] PULSE 103 03/03/2024 09:35:36 [place] [facility] RESPIRATION 18 03/03/2024 09:35:36 [facility] SYSTOLIC BLOOD PRESSURE 172 09/02/2023 11:51:42 [facility] [place] DIASTOLIC BLOOD PRESSURE 95 09/02/2023 11:51:42 [place] [facility] PULSE OXIMETRY 99% 09/02/2023 11:51:42 [facility] PAIN 0 09/02/2023 11:51:[address] TEMPERATURE 97.7 09/02/2023 11:51:42 N. [place] PULSE 81 09/02/2023 11:51:42 [facility] SYSTOLIC BLOOD PRESSURE 147 07/13/2023 09:22:00 [facility] DIASTOLIC BLOOD PRESSURE 73 07/13/2023 09:22:00 [facility] Encounters Combined list of: 1) Encounters from Department of [facility] Affairs facilities going back up to thelast 18 months. 2) Encounters from the Department of [facility] facilities going back up to 280 months. Location Location Details Encounter Type Encounter Number Reason For Visit Attending Provider ADM Date DC Date Status Disposition Source [facility] Outpatient Encounter [id number] 11/27 [facility] [id number] 11/27 [facility] Outpatient Encounter [id number] 12/01 [facility] N. 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
DAVID,CENK 01/21 [facility] ELECTROCAR DIOGRAM TRACING [id number] Diagnos is: ICD-10- CM Z01.810 Encount er for preproc edural cardiov ascular examina tion
TOSHA ZAVALA 02/05 [facility] OFFICE O/P EST MOD 30-39 MIN [id number] Diagnos is: ICD-10- CM Z01.818 Encount er for other preproc edural examina tion
CAROL RIOS 02/05 [facility] Outpatient Encounter [id number] Diagnos is: ICD-10- CM Z01.818 Encount er for other preproc edural examina tion
REVA GARDINER 02/[address] [facility] Outpatient Encounter [id number] TISHA MILLER 02/18 [facility] Outpatient Encounter [id number] [facility] 02/26 [facility] OFFICE O/P NEW LOW 30-44 MIN [id number] Diagnos is: ICD-10- CM Z01.818 Encount er for other preproc edural examina tion
SHU SYLVESTER 02/26 [facility] Outpatient Encounter [id number] Atif ROSENBERG 02/26 [facility] Outpatient Encounter [id number] [facility] 02/26 [facility] Outpatient Encounter [id number] 02/26 [place] Outpatient Encounter [id number] SHU SYLVESTER E E 02/[address] 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
CAYCI,CENK 02/[address] [facility] REVISION OF UPPER EYELID [id number] TIFFANIE HOUSTON 02/[address] 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
SHU SYLVESTER E E 02/[address] [facility] Outpatient Encounter [id number] 02/[address] [facility] POSTOP FOLLOW-UP VISIT [id number] Diagnos is: ICD-10- CM Z48.817 Encntr for surgica l aftcr fol surgery on the skin, subcu<b r/> ME FELIX DOUGLAS 03/[address] [facility] POSTOP FOLLOW-UP VISIT [id number] Diagnos is: ICD-10- CM Z48.817 Encntr for surgica l aftcr fol surgery on the skin, subcu<b r/> ME FELIX DOUGLAS 04/[address] 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
TEENA KUMAR JOSE 07/13 [facility] Outpatient Encounter [id number] VIVEK VIDALES 07/21 [facility] HC PRO PHONE CALL 5-10 MIN [id number] Diagnos is: ICD-10- CM G47.33 Obstruc tive sleep apnea (adult) ([facility])
CHANI CAMPOVERDE 08/28 [facility] Outpatient Encounter [id number] ANDRADE TEENA DUBON JOSE 08/31 [facility] Outpatient Encounter [id number] TEENA KUAMR JOSE 08/31 [facility] Outpatient Encounter [id number] TEENA KUMAR JOSE 08/31 [facility] Outpatient Encounter [id number] 09/01 [facility] OFFICE O/P NEW MOD 45 MIN [id number] Diagnos is: ICD-10- CM R31.0 Gross hematur ia
BIA RICHARDSON 09/02 N. [facility] Outpatient Encounter [id number] 09/02 . [facility] Outpatient Encounter [id number] 09/02 [facility] Outpatient Encounter [id number] ASTRID HACKETT 09/02 N. [facility] Outpatient Encounter [id number] ASTRID HACKETT 09/02 [facility] Outpatient Encounter [id number] ASTRID HACKETT 09/03 [facility] Outpatient Encounter [id number] TEENA KUMAR 09/03 [facility] Outpatient Encounter [id number] 09/08 [facility] Outpatient Encounter [id number] ASTRID HACKETT 09/08 [facility] Outpatient Encounter [id number] ASTRID HACKETT 09/08 [facility] Outpatient Encounter [id number] Diagnos is: ICD-10- CM G47.33 Obstruc tive sleep apnea (adult) (pediat melanie)
MARIELLA ANDRADE 09/08 N. [facility] HC PRO PHONE CALL 5-10 MIN [id number] Diagnos is: ICD-10- CM N40.1 Benign prostat ic hyperpl óscar with lower urinary tract symp
JENNYFER,WAYNE SHULTZ A 09/11 [facility] POS [facility] PRESSURE CPAP [id number] Diagnos is: ICD-10- CM G47.33 Obstruc tive sleep apnea (adult) (pediat melanie)
JULIAN-QUILE SCHANI 10/13 [facility] Outpatient Encounter [id number] FIDE JOHNSON ANGELA Swan 10/14 [facility] SPECIAL SUPPLIES PHYS/QHP [id number] Diagnos is: ICD-10- CM G47.33 Obstruc tive sleep apnea (adult) (pediat melanie)
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
KAPHING,BR CAROLINA S 01/12 [facility] OFFICE O/P EST MOD 30 MIN [id number] Diagnos is: ICD-10- CM H02.834 Dermato chalasi s of left upper eyelid< br/> CAYCI,CENK 01/12 [facility] Outpatient Encounter [id number] [facility] Outpatient Encounter [id number] 01/21 [facility] Outpatient Encounter [id number] Diagnos is: ICD-10- CM N40.1 Benign prostat ic hyperpl óscar with lower urinary tract symp
AKSHAT PARK 02/17 [facility] [place] [facility] [place] [facility] OFFICE O/P EST MOD 30 MIN [id number] Diagnos is: ICD-10- CM H02.34 Blephar ochalas is left upper eyelid< br/> BERTA HERNANDEZ 03/03 [facility] [place] [facility] Outpatient Encounter [id number] 03/03 [facility] [place] Outpatient Encounter [id number] 03/11 [facility] [place] [facility] [place] [facility] POSTOP FOLLOW-UP VISIT [id number] Diagnos is: ICD-10- CM Z48.89 Encount er for other specifi ed surgica l afterca re
WONG MARIE 03/16 [facility] Procedures Combined list of: 1) Procedures from Department of Veterans Affairs facilities going back up to thelast 18 months, not all [place] non-surgical procedures are included; 2) All procedures from the Department of Defense facilities. Procedure Procedure Type Code Date Perfomer Comments Ramsey beckett Bilateral upper blepharoplasty, transpalpebral browpexy with endotine, Levator advancement, tarsal strip/canthoplasty REVISION OF UPPER EYELID [id number] [facility] Social History Combined list of available smoking, tobacco, and other social history from Department of Defense and Veterans Affairs facilities. Social History Type Response Date Comment Ramsey beckett Tobacco smoking status ALIS VA-TOBACCO FORMER USER 07/13/2023 [facility] History of tobacco use [place]-TOBACCO QUIT 5 TO < 15 YRS 07/13/2023 [facility] History of tobacco use VA-TOBACCO FORMER USER 07/10/2022 [facility] History of tobacco use [place]-TOBACCO FORMER USER 07/11/2021 [facility] History of tobacco use [place]-TOBACCO QUIT 15 YRS OR MORE 07/05/2020 [facility] History of tobacco use PRIOR TOBACCO USE CESSATION DATE 09/01/2017 [facility] [place] [facility] History of tobacco use TOBACCO PACK YEARS 08/31/2017 [facility] History of tobacco use PRIOR TOBACCO USE CESSATION DATE 10/24/2016 [facility] [facility] History of tobacco use TOBACCO PACK YEARS 10/23/2016 [facility] History of tobacco use PRIOR TOBACCO USE CESSATION DATE 07/09/2016 Rinku AMARAL/[place] [facility] History of tobacco use TOBACCO PACK YEARS 07/09/2016 [facility] History of tobacco use PRIOR TOBACCO USE CESSATION DATE 07/09/2015 Rinku AMARAL/[place] [facility] History of tobacco use TOBACCO PACK YEARS 07/09/2015 [facility] History of tobacco use CURRENT TOBACCO USE 07/12/2014 [facility] History of tobacco use TOBACCO MEDS OFFERED 07/07/2013 [facility] Plan of Care List of future care activities from [facility] facilities. Additional future care activities may be listed in the Assessment and Plan section. Date/Time Care Activity Care Activity Detail Facili ty 07/05/2024 AMBULATORY - NONE AMBULATORY - NONE [facility] 07/12/2024 AMBULATORY - MEDICINE AMBULATORY - MEDICI NE [facility] 08/29/2024 AMBULATORY - NONE AMBULATORY - NONE [facility] 10/17/2024 AMBULATORY - MEDICINE AMBULATORY - MEDICI NE Rinku AM[facility]AL/[place] [facility] 07/05/2024 Laboratory - Dry Box Tender ry Order CBC (DIFF&PLT) BLOOD SP [facility] 07/05/2024 Laboratory - Dry Box Tender ry Order LIPID PANEL BLOOD PLASMA SP [facility] 07/05/2024 Laboratory - Dry Box Tender ry Order COMPREHENSIVE METABOLIC PANEL BLOOD PLASMA SP [facility] 07/05/2024 Laboratory - Dry Box Tender ry Order TSH-G,LC,J,T BLOOD PLASMA SP [facility] 07/05/2024 Laboratory - Dry Box Tender ry Order HEMOGLOBIN %A1C PROFILE BLOOD SP [facility] 07/05/2024 Laboratory - Dry Box Tender ry Order MICROALBUMINURIA(ANUP) URINE SP [facility] Advance Directives List of completed, amended, or rescinded Advance Directives on record at [facility] facilities. An actual copy of the Directive is not included. Date Advance Directive Provider Source 07/13/2023 ADVANCE DIRECTIVE NO TIFICATION AND SCREENING ROSA M SUAZO [facility] 07/10/2022 ADVANCE DIRECTIVE NO TIFICATION AND SCREENING ASTRID BHAT [facility] 07/05/2020 ADVANCE DIRECTIVE NO TIFICATION AND SCREENING DIPTI GILES [facility] 07/01/2019 ADVANCE DIRECTIVE DISCUSSION BETTY BROTHERS [facility] 06/30/2018 ADVANCE DIRECTIVE DISCUSSION BETTY BROTHERS [facility] 09/01/2017 ADVANCE DIRECTIVE DISCUSSION BETTY BROTHERS [facility] 10/24/2016 ADVANCE DIRECTIVE DISCUSSION BETTY BROTHERS [facility] 07/09/2016 ADVANCE DIRECTIVE DISCUSSION BETTY BORTHERS [facility] 07/22/2013 ADVANCE DIRECTIVE SUZANNA HOOK [facility]
--- OUTSIDE RECORDS SUMMARY | 2024-06-03 09:29 | XMS_ITS | Referral Summary ---
Author Organization [facility] Address [address] [place] [id number] Care Team Providers Care Track Laminating Machine Tender Name Role Phone Dustin Victor MD Primary Care Provider [phone] Encounters Date Type Department Care Team Description 05/25/2024 9:34 PM CDT - 05/28/2024 11:26 AM CDT Hospital Encounter [place] [address] [facility] [address] [place] [address] Seth Rios MD Hess, Toy, MD Calculus of bile duct with acute cholecystitis and obstruction (Primary Dx); Cholangitis (H); Duodenal ulcer without hemorrhage or perforation and without obstruction Discharge Disposition: Home or Self Care 05/27/2024 10:21 AM CDT Anesthesia Event [facility] [address] [place] [address] Leny Lyon MD Cole, Lisa Yolanda, SKILLED NURSING FACILITIES PROFESSIONAL CLOTH STOCK SORTER 05/27/2024 10:20 AM CDT - 05/27/2024 12:[address] [facility] [address] [place] [address] Kenneth Mayen MD [facility] Robot-Assisted Laparoscopic Cholecystectomy 05/26/2024 2:10 PM CD[address]esthesia Event [facility] [address] [place] [address] Car Underwood MD An[facility] MD 05/26/2024 1:50 PM CDT - 05/26/2024 2:45 PM CDT Surgery [facility] Services [address] [place] [address] Jefferson Gama MD ENDOSCOPIC RETROGRADE CHOLANGIOPANCREATOGRAPH Y, sphincterotomy and balloon extraction from Last 3 [...] 0.4 mg by mouth daily. 02/18/2024 Active [place]-3 Fatty Acids (FISH OIL) 1200 MG capsule [...] in an abandoned building, in an overnight custodial, or couch-surfing.) Yes 05/25/2024 Are you worried [...] CDT SODIUM Timed 05/27/2024 1:50 PM CDT SURGICAL PATHOLOGY EXAM Routine 05/27/20 12:26 PM CDT ANE AIRWAY ETT PERFORMABLE Routine 05/27 10:30 AM CDT LAPAROSCOPY, SURGICAL; CHOLECYSTECTOMY 05/27/2024 10:24 AM CDT Cholecystitis MAGNESIUM Add-On 05/27/2024 6:25 AM CDT COMPREHENSIVE [...] CDT from Last 3 Months Results * EKG 12-lead, tracing only (05/28/2024 9:11 AM CDT) Systolic Blood Pressure mmHg RADIOLOGY RESULTS Diastolic Blood Pressure mmHg RADIOLOGY RESULTS Ventricular Rate 86 BPM RAD IOLOGY RESULTS Atrial Rate 86 BPM RADIOLOG Y RESULTS [place] Interval 184 ms RADIOLOG Y RESULTS QRS Duration 102 ms RADIOLO GY RESULTS QT 388 ms RADIOLOGY RESULTS QTc 464 ms RADIOLOGY RESULTS P [place] 44 degrees RADIOLOGY RESULTS R AXIS 20 degrees RADIOLOGY RESULTS T [place] 23 degrees RADIOLOGY RESULTS Interpretation ECG Sinus rhythm Possible Inferior infarct , age undetermined Abnormal ECG No previous ECGs available Confirmed by MD ALBARRAN STEVEN ([id number]) on 05/30/2024 3:08:47 PM RADIOLOGY RESULTS 05/28/2024 9:11 AM CDT 05/30/2024 3:08 PM CDT Dorita Thompson MD ECG ORDERABLES RADIOLOGY RESULTS * Magnesium (05/28/2024 6:51 AM CDT) Only the most recent of3 resultswithin the time period is included. Magnesium 2.3 1.7 - 2.3 mg/dL 05/28/2024 7:52 AM CDT [facility] Blood BLOOD SPECIMEN / Unknown Venipuncture / Unknown 05/28/2024 6:51 AM CDT 05/28/2024 7:02 AM CDT Seth Rios MD LAB - BLOOD ORDER [facility] Acute Care Lab [address] Lab (1st floor, no room number) [place] [address], [facility] * (ABNORMAL) Comprehensive metabolic panel (05/28/2024 6:51 AM CDT) Only the most recent of3 resultswithin the time period is included. Sodium 131(L) 135 - 145 mmol/L 05/28/2024 7:27 AM CDT [facility] Potassium 3.7 3.4 - 5.3 mmol/L 05/28/2024 7:27 AM CDT [facility] Carbon Dioxide (CO2) 19(L) 22 - 29 mmol/L 05/28/2024 7:27 AM CDT [facility] Anion Gap 15 7 - 15 mmol/L 05/28/2024 7:27 AM CDT [facility] Urea Nitrogen 16.6 8.0 - 23.0 mg/dL 05/28/2024 7:27 AM CDT [facility] Creatinine 1.06 0.67 - 1.17 mg/dL 05/28/2024 7:27 AM CDT [facility] GFR Estimate 74 >60 mL/min/1.7 3m2 05/28/2024 7:27 AM CDT [facility] Comment:eGFR calculated 2020 CKD-EPI equation. Calcium 8.3(L) 8.8 - [...] MD LAB - BLOOD ORDERABL ES LABORATORY [facility] Care Lab [address] Lab (1st floor, no room number) [address] [place] [address] * (ABNORMAL) Sodium (05/28/2024 6:51 AM CDT) Only the most recent of9 resultswithin the time period is included. Sodium 131(L) 135 - 145 mmol/L 05/28/2024 7:27 AM CDT [facility] Blood BLOOD SPECIMEN / Unknown Venipuncture / Unknown 05/28/2024 6:51 AM CDT 05/28/2024 7:02 AM CDT Kenneth Mayen MD LAB - BLOOD ORDERABL ES LAB[facility]ATORY [facility] Acute Care Lab [address] Lab (1st floor, no room number) [address] * (ABNORMAL) CBC with platelets (05/28/2024 6:51 [...] MD LAB - BLOOD ORDERABL ES LABORATORY [facility] Acute Care Lab [address] [facility] Lab (1st floor, no room number) [place] [address] * Surgical Pathology Exam (05/27/2024 12:26 PM CDT) Case Report Surgical Pathology Report ? Case: [id number] ? Authorizing Provider: ??Kenneth Mayen MD ? Collected: ? 05/27/2024 12:26 PM ? Ordering Location: ? [facility] ?? Received: ?05/27/2024 12:51 PM ? Main OR ? Pathologist: ? Seth Vega MD ? Specimen: ?Gallbladder, GALLBLADDER AND CONTENTS ? 05/30/2024 1:55 PM CDT LABORATORY Final Diagnosis Gallbladder, cholecystectomy: --Acute cholecystitis. 05/30/2024 1:55 PM CDT LABORATORY Clinical Information Procedure: [place] Robot-Assisted Laparoscopic Cholecystectomy Pre-op Diagnosis: Cholecystitis [K81.9] Post-op Diagnosis: K81.9 - Cholecystitis [ICD-10-CM] 05/30/2024 1:55 PM CDT [facility] Gross Description A(1). Gallbladder, GALLBLADDER AND CONTENTS: The specimen is received in formalin, labeled with the patient's name, medical record number and other identifying information designated gallbladder and contents. It consists of a 6.1 x 2.6 x 2.3 cm red-pink gallbladder with a single 0.8 cm area of previous disruption at the body. The cystic duct margin is entirely inked black. The specimen is opened, releases a red-brown bile without calculi (no calculi grossly identified within the specimen container). The gallbladder displays a dalton-red, velvety and multifocally mildly roughened mucosa with a ranging 0.2-0.9 cm wall. No obvious possible mass or nodularities are grossly identified. Brand Advocate sections of the gallbladder to include the cystic duct margin (inked black) are submitted in 1 cassette. (BRADFORD Perdomo (ASCP) 05/27/2024 1:27 PM 05/30/2024 1:55 PM CDT [facility] Microscopic Description Microscopic examination was performed. 05/30/2024 1:55 PM CDT LABORATORY Performing Labs The technical component of this testing was completed at [facility]. Stain controls for all stains resulted within this report have been reviewed and show appropriate reactivity. 05/30/2024 1:55 PM CDT [facility] Case Images 05/30/2024 1:55 PM CDT LABORATORY Tissue GALLBLADDER PART / Unknown 05/27/2024 12:26 PM CDT 05/27/2024 12:51 PM CDT Kenneth WHITTAKER - DANI RIDDLE [facility] Acute [facility] Lab [address] [facility] Lab (1st floor, no room number) [place] [address] * ANE AIRWAY ETT PERFORMABLE (05/27/2024 10:30 AM CDT) Narrative Concepcion Rosado APRN CRNA - 05/27/2024 10:30 AM CDT Concepcion Rosado APRN CRNA ? 05/27/2024 10:38 AM Airway ? Patient location during procedure: OR ? Procedure Start/Stop Times: 05/27/2024 10:30 AM Staff - ? CLOTH STOCK SORTER: Concepcion Rosado APRN CLOTH STOCK SORTER ? Performed By: CLOTH STOCK SORTER Consent for Airway ? Urgency: elective Indications [...] Time: 05/27/2024 10:30 AM Leny Lyon MD [place] ANESTHESIA * (ABNORMAL) Lipase (05/27/2024 6:25 AM CDT) Lipase 63(H) 13 - 60 U/L 05/27/2024 7:06 AM CDT LABORATORY Blood STRUCTURE OF RIGHT UPPER LIMB / Unknown Venipuncture / Unknown 05/27/2024 6:25 AM CDT 05/27/2024 6:38 AM CDT Dorita Thompson MD LAB - BLOOD ORDERABL ES Performing Organization Address [facility]/ZIP Co de Phone Number [facility] Lab [address] [employer] Lab (1st floor, no room number) [place] [phone] [place] [address] * Sodium random urine (05/26/2024 5:17 PM [...] - URINE ORDERABL ES Performing Organization Address City/[facility]/ZIP Co de Phone Number [facility] Acute Care Lab [address] Lab (1st floor, no room number) [place] [address], [facility] * Osmolality urine (05/26/2024 [...] Thompson MD LAB - URINE ORDERABL ES [facility] LAB[facility]ATORY [facility] Core Lab [address], [address] [id number] * XR ERCP (05/26/2024 2:56 PM CDT) Narrative RADIANT - 05/26/2024 2:58 PM CDT This exam was marked as non-reportable because it will not be read by a radiologist or a [facility] non-radiologist provider. Jefferson Gama MD IMG DIAGNOSTIC I MAGING ORDERABLES RADIANT * ENDOSCOPIC RETROGRADE CHOLANGIOPANCREATOGRAPHY (05/26/2024 1:39 PM CDT) ERCP [facility] Patient Name: Car Calvert ? Procedure Date: [...] and ?oxygen saturations were monitored continuously. The ?Toptal Exera II Duodenovideoscope (ERCP), Model # ?[id number]-[id number], [facility] # [id number] was introduced ?through the mouth, and used to inject contrast into ?and used to inject contrast into the bile duct. The ?ERCP was accomplished without difficulty. The ?patient tolerated the procedure well. ? Findings: ? The payroll associate film was normal. The esophagus was successfully [...] Note Initiated On: 05/26/2024 1:39 PM MRN: ?[id number] Procedure Date: ? 05/26/2024 1:39:55 PM Total [...] Seth Rios MD LAB - BEAKER POCT [facility] POC [facility] Acute Care Lab [address] Lab (1st floor, no room number) [address] * (ABNORMAL) Potassium (05/26/2024 12:04 PM CDT) Potassium 3.3(L) 3.4 - 5.3 mmol/L 05/26/2024 12:42 PM CDT [facility] Blood STRUCTURE OF RIGHT HAND / Unknown Venipuncture / Unknown 05/26/2024 12:04 PM CDT 05/26/2024 12:19 PM CDT Dorita Thompson MD LAB - BLOOD ORDERABL ES [facility] Acute Care Lab [address] Lab (1st floor, no room number) [address] * INR (05/26/2024 9:47 AM CDT) INR 1.10 0.85 - 1.15 05/26/2024 10:12 AM CDT [facility] Blood STRUCTURE OF RIGHT HAND / Unknown Venipuncture / Unknown 05/26/2024 9:47 AM CDT 05/26/2024 9:56 AM CDT Asuncion Flynn PA-C LAB - BLOOD ORDERABLES [facility] Acute Care Lab [address] Lab (1st floor, no room number) [address] * TSH with free T4 reflex (05/26/2024 6:49 AM CDT) TSH 1.27 0.30 - 4.20 uIU/mL 05/26/2024 12:29 PM CDT [facility] Blood STRUCTURE OF RIGHT HAND / Unknown Venipuncture / Unknown 05/26/2024 6:49 AM CDT 05/26/2024 6:59 AM CDT Dorita Thompson MD LAB - BLOOD ORDERABL ES [facility] Acute Care Lab [address] Lab (1st floor, no room number) [place] [address], [facility] from Last 3 Months Advance Directives For more information, please contact: [phone] * Full Code (Latest Code Status on File) Date Activated Date Inactivated Comments 05/25/2024 11:07 PM 05/28/2024 1:31 PM All basic a nd advanced life-sustaining interventions are performed as appropriate Question Answer Comments Code status determined by: Discussion with monica zhang/ legal decision maker Care Teams Track Laminating Machine Tender Relationship Specialty Start Date End Date Dustin Victor MD [facility] [address] [place] [address] PCP - General Family Medicine 04/01/23
--- OUTSIDE RECORDS SUMMARY | 2024-06-03 09:29 | XMS_ITS | Encounter Summary ---
Author Organization Colon Address [facility] [place] [address] Care Team Providers Care Airplane Dispatcher Name Role Phone Dustin Victor MD Primary Care Provider [phone] Reason for Visit * Auth/Cert (Routine) Specialty Diagnoses / Procedures Referred By Juice t Referred To Contact Med Surg Diagnoses Choledocolithiasis and cholecysitis Choledocholithiasis with obstruction 5 Medical Surgical [address] [place] [address] Referral ID Status Reason Start Date Expiration Date Visits Re quested Visits Authorized [id number] 1 1 Encounter Details Date Type Department Care Team (Latest Contact Info) Description 05/25/2024 9:34 PM CDT - 05/28/2024 11:26 AM CDT Hospital Encounter [facility] 5 Medical Surgical [address] [place] [address] Seth Rios MD [address] [place], [place] [id number] Sulaiman Wan MD [address] [place] [address] Calculus of bile duct with [...] Thompson MD - 05/28/2024 10:41 AM CDT [facility] Hospitalist Discharge Summary Date of Admission: [...] hypertension, hyperlipidemia, and obesity who presented to [facility] from outside hospital on 05/25/2024 with acute [...] mild biliary dilation. Patient subsequently transferred from [facility] for ERCP. Patient was empirically started on [...] minutes discharging this patient. Dorita Thompson MD [place] [address] MEDICAL SURGICAL [address] [facility] [address] Physical Exam Vital Signs: Temp: 97.9 ??F [...] tablet Take 1 tablet by mouth daily. Midland-3 Fatty Acids (FISH OIL) 1200 MG capsule [...] to be seen, please call us at [phone]. We are located at: [address], [address]; [place] [address] INCISIONAL CARE: Replace the bandage over your [...] to discuss with the nurse or physician human resource assistant. # There is a surgeon WEB APPLICATIONS DEVELOPER on weekday evenings and over the weekend [...] Take 1 tablet by mouth daily. 01/11/2024 Midland-3 Fatty Acids (FISH OIL) 1200 MG capsule [...] Osorio PA-C - 05/28/2024 9:26 AM CDT [facility] General Surgery Progress Note Assessment and Plan: [...] not displayed. Barb Osorio PA-C Text page: [phone] 8 am to 4 pm After 4 pm, call * Dorita Thompson MD - 05/27/2024 7:52 PM CDT [facility] Medicine Progress Note - Hospitalist Service Date of Admission: 05/25/2024 Assessment & Plan Car Calvert is a 74 year old male with past medical history significant for interstitial lung disease, hypertension, hyperlipidemia, and obesity who presented to [facility] from outside hospital on 05/25/2024 with acute [...] mild biliary dilation. Patient subsequently transferred from [facility] for possible ERCP . Patient underwent stone [...] Anticipated tomorrow Dorita Thompson MD Hospitalist Service [facility] Securely message with Braingaze (more info) Text page via [facility] Paging/Directory Interval History No acute events overnight. [...] surg), Dr. Gama (GI). Dannie Simmons MD [facility] consultants Office: [phone] Interval History: No acute events overnight Na [...] medications, labs and imaging. Dannie Simmons MD [facility] Consultants - Nephrology Office: [phone] * Dorita Thompson MD - 05/26/2024 4:03 PM CDT [facility] Medicine Progress Note - Hospitalist Service Date of Admission: 05/25/2024 Assessment & Plan Car Calvert is a 74 year old male with past medical history significant for interstitial lung disease, hypertension, hyperlipidemia, and obesity who presented to [facility] from outside hospital on 05/25/2024 with acute [...] mild biliary dilation. Patient subsequently transferred from [facility] for possible ERCP -GI consulted, appreciate recommendations. [...] 2-4 Days Dorita Thompson MD Hospitalist Service [facility] Securely message with Braingaze (more info) Text page via [facility] Paging/Directory Interval History No acute events overnight. [...] Interventions Taken No adjustments needed Admission/Transfer from: [facility] ED 2 RN skin assessment completed. Yes Significant findings include: None LDA added (if applicable)? Not Applicable Requested [facility] Nurse Consult from ? Not Applicable [facility] RN documented in this encounter H&P Notes * Sulaiman Wan MD - 05/25/2024 11:18 PM CDT [facility] History and Physical - Hospitalist Service Date of Admission: 05/25/2024 Assessment & Plan Car Calvert is a 74 year old male with past medical history significant for interstitial lung disease, hypertension, hyperlipidemia, and obesity who presented to [facility] from outside hospital on 05/25/2024 with acute [...] mild biliary dilation. Patient subsequently transferred from [facility] for possible ERCP tomorrow. Of note, this was apparently confirmed with GI that it could be performedat [facility] prior to patient being transferred. Will continue [...] 2-4 Days Sulaiman Wan MD Hospitalist Service [facility] Securely message with Braingaze (more info) Text page via [facility] Paging/Directory Chief Complaint Abdominal pain History is obtained from the patient History of Present Illness Car Calvert is a 74 year old male with past medical history significant for interstitial lung disease, hypertension, hyperlipidemia, and obesity who presented to [facility] from outside hospital on 05/25/2024 with acute [...] of drink. He presented earlier today to [facility] emergency department. Laboratory studies revealed a mild [...] physician reportedly discussed with general surgery at [facility], who stated that the patient should be transferred for ERCP as it could not be performed at that location. He was provided with Zosyn + fluids prior to transfer. Patient was subsequently transferred to [facility] where he is thus far been afebrile. [...] 74 year old male who presented to [facility] ED two days ago with right upper [...] 3 mL Intracatheter q1 min prn Shivam Norirs MD [Auto Hold] sodium chloride (PF) 0.9% [...] 5:08 PM CDTAssociated Order(s): NEPHROLOGY IP CONSULT [facility] Nephrology Consultation Date of Admission: 05/25/2024 [...] (hospitalist), Dr. Gama (GI). Dannie Simmons MD [facility] Consultants - Nephrology [phone] Reason for Consult I was asked to [...] with obstructing 3mm CBD stone. Transferred to [facility] for ERCP and further treatment. Given [...] Sig: Take 81 mg by mouth daily. Midland-3 Fatty Acids (FISH OIL) 1200 MG capsule [...] PROTEIN, UROBILINOGEN, NITRITE, LEUKEST Dannie Simmons MD [facility] - Nephrology [phone] * Jefferson Gama MD - 05/26/2024 9:11 AM CDTAssociated Order(s): GASTROENTEROLOGY IP CONSULT Images from the original note were not included. GASTROENTEROLOGY CONSULTATION Car Calvert [id number] [facility] [id number] 74 year old male Admission Date/Time: 05/25/2024 Primary Care Provider: Dustin Victor Referring / Attending Physician: Dr. Wan We were asked to see the patient in consultation by Dr. Wan for evaluation of choledocholithiasis. HPI: Car Calvert is a 74 year old male with medical history of hypertension, hyperlipidemia, kidney stones, interstitial lung disease, who was transferred from [facility] with acute abdominal pain found to have [...] daily. 01/11/24 Yes Unknown, Entered By History Midland-3 Fatty Acids (FISH OIL) 1200 MG capsule [...] ALT 208* AST 90* IMAGING / ENDOSCOPY [facility] per report. I am unable to view these currently. CONSULTATION ASSESSMENT AND PLAN: Car Calvert is a 74 year old with medical history of hypertension, hyperlipidemia, kidney stones, interstitial lung disease, who was transferred from [facility] with acute abdominal pain found to have MRCP evidence of cholelithiasis, and choledocholithiasis. 1. Choledocholithiasis: As evidenced on MRCP with a 3 mm stone in the CBD. He is currently afebrile. LFTs have mildly improved. He continues on antibiotics. Abdominal pain is improving. Plan [facility]. General surgery consult for discussion of [...] patient evaluation, reviewing documentation/ test results, and mail order sorter. Chelita Flynn PA-C [facility] ( [facility]) [facility] note Patient seen and examined. Chart [...] by surgery for cholecystectomy. Jefferson Gama MD [facility] 20 minutes spent documented in this encounter Miscellaneous Notes * Plan of Care - Blayne Montanez RN - 05/28/2024 6:17 AM CDT For vital signs and complete assessments, please see documentation flowsheets. [phone] Pertinent assessments: Pt A&Ox4. On RA. Afebrile. [...] shift note. Outcome: Progressing Flowsheets (Taken 05/27/2024 7632) Outcome Evaluation: Discharge pending. Plan of Care [...] Pertinent assessments: Assumed care of pt from [phone]. POD #1 from ERCP, POD #0 from [...] Mayen MD - 05/27/2024 12:37 PM CDT [facility] Brief Operative Note Pre-operative diagnosis: Cholecystitis [...] Mayen MD - 05/27/2024 10:41 AM CDT [facility] General Surgery Operative Note Pre-operative diagnosis: choledocholithiasis Post-operative diagnosis: same Procedure: laparoscopic cholecystectomy with modifer 22 - approximately 1 hour of additional time to complete the case due to a chronically inflamed, scarred, and contracted gallbladder Surgeon: Kenneth Mayen MD Tug Boat Captain(s): Barb Osorio PA-C The Physician Tug Boat Captain was medically necessary for their expertise in [...] gained in the left upper quadrant at [facility] with a 5mm 0 degree laparscopic [...] documentation flowsheets. Pertinent assessments: Assumed care @ [phone]. POD #01 from ERCP. Pain controlled with oxycodone,given x 1. denies nausea and SOB. Afebrile, VSS. A&Ox4. Afebrile. On room air. IV fluids infusing. Tolerating clear liquids. Telemetry Major Shift Events: NPO midnight. Treatment Plan: NPO at [place], cholecystectomy with Gen Surg, IV fluids, trend [...] Pain Recent Flowsheet Documentation Taken 05/27/2024228 by Trsitan Bourgeois RN Sensory Stimulation Regulation: care clustered [...] to clear liquids. Treatment Plan: NPO at [place], cholecystectomy with Gen Surg, IV fluids, trend [...] shift note. Outcome: Progressing Flowsheets (Taken 05/26/2024 6170) Outcome Evaluation: Probable cholecystectomy with Gen Surg [...] Documentation Taken 05/26/2024 1000 by Linda Walters project management director Review/Management: medications reviewed Goal Outcome Evaluation: Plan [...] and CareEverywhere/SureScripts via in-person Changes made to DAIRY AND FOOD LABORATORY ASSISTANT medication list: Added: All Deleted: None Changed: None Allergies reviewed with patient and updates made in EHR: yes Medication History Completed By: Moses Carson RPH 05/26/2024 8:48 AM DAIRY AND FOOD LABORATORY ASSISTANT Med List Medication Sig Last Dose amLODIPine [...] Take 1 tablet by mouth daily. 05/23/2024 Midland-3 Fatty Acids (FISH OIL) 1200 MG capsule [...] see documentation flowsheets. Pertinent assessments: Care assumed [id number]. A&O x4. Able to correctly answer questions [...] probably ERCP today. Tele runningST 130's per telesales agent. Pt also constantly pulling tele leads off [...] shift note. Outcome: Progressing Flowsheets (Taken 05/25/2024 0443) Outcome Evaluation: up to floor at 2130, [...] PATHOLOGY EXAM Routine 05/27/20 12:26 PM CDT LAPAROSCOPY, SURGICAL; CHOLECYSTECTOMY 05/27/2024 10:24 AM CDT Cholecystitis MAGNESIUM Add-On 05/27/2024 6:25 AM CDT LIPASE [...] CDT documented in this encounter Results * EKG 12-lead, tracing only (05/28/2024 9:11 AM CDT) Systolic Blood Pressure mmHg RADIOLOGY RESULTS Diastolic Blood Pressure mmHg RADIOLOGY RESULTS Ventricular Rate 86 BPM RAD IOLOGY RESULTS Atrial Rate 86 BPM RADIOLOG Y RESULTS [place] Interval 184 ms RADIOLOG Y RESULTS QRS Duration 102 ms RADIOLO GY RESULTS QT 388 ms RADIOLOGY RESULTS QTc 464 ms RADIOLOGY RESULTS P [place] 44 degrees RADIOLOGY RESULTS R AXIS 20 degrees RADIOLOGY RESULTS T [place] 23 degrees RADIOLOGY RESULTS Interpretation ECG Sinus rhythm Possible Inferior infarct , age undetermined Abnormal ECG No previous ECGs available Confirmed by MD AVIS, DIPTI ([id number]) on 05/30/2024 3:08:47 PM RADIOLOGY RESULTS 05/28/2024 9:11 AM CDT 05/30/2024 3:08 PM CDT Dorita Thompson MD ECG ORDERABLES RADIOLOGY RESULTS * Magnesium (05/28/2024 6:51 AM CDT) Magnesium 2.3 1.7 - 2.3 mg/dL 05/28/2024 7:52 AM CDT [facility] LAB[facility]ATORY Blood BLOOD SPECIMEN / Unknown Venipuncture / Unknown 05/28/2024 6:51 AM CDT 05/28/2024 7:02 AM CDT Seth Rios MD LAB - BLOOD ORDER MELYSSA [facility] [address] Lab (1st floor, no room number) [address] * (ABNORMAL) Sodium (05/28/2024 6:51 AM CDT) Sodium 131(L) 135 - 145 mmol/L 05/28/2024 7:27 AM CDT LABORATORY Blood BLOOD SPECIMEN / Unknown Venipuncture / Unknown 05/28/2024 6:51 AM CDT 05/28/2024 7:02 AM CDT Kenneth Mayen MD LAB - BLOOD ORDERABL ES Performing Organization Address City/[facility] [address]/ZIP Co de Phone Number [facility] [address] Lab (1st floor, no room number) [address] * (ABNORMAL) Comprehensive metabolic panel (05/28/2024 [...] LAB - BLOOD ORDERABL ES [facility] LABORATORY [facility] Lab [address] Lab (1st floor, no room number) [place] [address], [facility] * (ABNORMAL) CBC with platelets (05/28/2024 6:51 [...] Thompson MD LAB - BLOOD ORDERABL ES [facility] [address] Lab (1st floor, no room number) [address] * (ABNORMAL) Sodium (05/27/2024 11:40 PM CDT) Sodium 129(L) 135 - 145 mmol/L 05/28/2024 12:02 AM CDT [facility] Blood BLOOD SPECIMEN / Unknown Venipuncture / Unknown 05/27/2024 11:40 PM CDT 05/27/2024 11:44 PM CDT Kenneth Mayen MD LAB - BLOOD ORDERABL ES [facility] [address] Lab (1st floor, no room number) [address] * (ABNORMAL) Sodium (05/27/2024 5:50 PM CDT) Sodium 125(L) 135 - 145 mmol/L 05/27/2024 6:19 PM CDT [facility] Blood STRUCTURE OF LEFT UPPER LIMB / Unknown Venipuncture / Unknown 05/27/2024 5:50 PM CDT 05/27/2024 5:54 PM CDT Kenneth Mayen MD LAB - BLOOD ORDERABL ES Performing Organization Address [facility] Co de Phone Number [facility] [address] Lab (1st floor, no room number) [address] * (ABNORMAL) Sodium (05/27/2024 1:50 PM CDT) Sodium 123(L) 135 - 145 mmol/L 05/27/2024 2:32 PM CDT [facility] Blood STRUCTURE OF RIGHT UPPER LIMB / Unknown Venipuncture / Unknown 05/27/2024 1:50 PM CDT 05/27/2024 1:59 PM CDT Kenneth Mayen MD LAB - BLOOD ORDERABL ES Performing Organization Address [facility] de Phone Number [facility] [address] Lab (1st floor, no room number) [address] * Surgical Pathology Exam (05/27/2024 12:26 PM CDT) Case Report Surgical Pathology Report ? Case: [id number] ? Authorizing Provider: ??Kenneth Mayen MD ? Collected: ? 05/27/2024 12:26 PM ? Ordering Location: ? [facility] ?? Received: ?05/27/2024 12:51 PM ? Main OR ? Pathologist: ? Seth Vega MD ? Specimen: ?Gallbladder, GALLBLADDER AND CONTENTS ? 05/30/2024 1:55 PM CDT LABORATORY Final Diagnosis Gallbladder, cholecystectomy: --Acute cholecystitis. 05/30/2024 1:55 PM CDT LABORATORY Clinical Information Procedure: Davinci Robot-Assisted Laparoscopic Cholecystectomy Pre-op Diagnosis: Cholecystitis [K81.9] Post-op Diagnosis: K81.9 - Cholecystitis [ICD-10-CM] 05/30/2024 1:55 PM CDT LABORATORY Gross Description A(1). Gallbladder, GALLBLADDER AND [...] possible mass or nodularities are grossly identified. Hander In sections of the gallbladder to include the cystic duct margin (inked black) are submitted in 1 cassette. (BRADFORD Perdomo (ASCP) 05/27/2024 1:27 PM 05/30/2024 1:55 PM CDT LABORATORY Microscopic Description Microscopic examination was performed. 05/30/2024 1:55 PM CDT LABORATORY Performing Labs The technical component of this testing was completed at [facility]. Stain controls for all stains resulted within this report have been reviewed and show appropriate reactivity. 05/30/2024 1:55 PM CDT LABORATORY Case Images 05/30/2024 1:55 PM CDT LABORATORY Tissue GALLBLADDER PART / Unknown 05/27/2024 12:26 PM CDT 05/27/2024 12:51 PM CDT Kenneth Mayen MD LAB - BEAKER AP [facility] Lab [address] Lab (1st floor, no room number) [address] * Magnesium (05/27/2024 6:25 AM CDT) Magnesium 1.9 1.7 - 2.3 mg/dL 05/27/2024 8:21 AM CDT LABORATORY Blood STRUCTURE OF RIGHT UPPER LIMB / Unknown Venipuncture / Unknown 05/27/2024 6:25 AM CDT 05/27/2024 6:38 AM CDT Dorita Thompson MD LAB - BLOOD ORDERABL ES [facility] [address] Lab (1st floor, no room number) [address] * (ABNORMAL) Sodium (05/27/2024 6:25 AM CDT) Sodium 123(L) 135 - 145 mmol/L 05/27/2024 7:06 AM CDT [facility] LAB[facility] Blood STRUCTURE OF RIGHT UPPER LIMB / Unknown Venipuncture / Unknown 05/27/2024 6:25 AM CDT 05/27/2024 6:38 AM CDT Kenneth Mayen MD LAB - BLOOD ORDERABL ES LABORATORY [facility] [address] [facility], no room number) [place] [address] * (ABNORMAL) Comprehensive metabolic panel (05/27/2024 6:25 AM CDT) Sodium 123(L) 135 - 145 mmol/L 05/27/2024 7:06 AM CDT LABORATORY Potassium 3.3(L) 3.4 - 5.3 mmol/L 05/27/2024 7:06 AM CDT LABORATORY Carbon Dioxide (CO2) 20(L) 22 - 29 mmol/L 05/27/2024 7:06 AM CDT LABORATORY Anion Gap 12 7 - 15 mmol/L 05/27/2024 7:06 AM CDT LABORATORY Urea Nitrogen 16.6 8.0 - 23.0 mg/dL 05/27/2024 7:06 AM CDT LABORATORY Creatinine 1.08 0.67 - 1.17 mg/dL 05/27/2024 7:06 AM CDT LABORATORY GFR Estimate 72 >60 mL/min/1.7 3m2 05/27/2024 7:06 AM CDT LABORATORY Comment:eGFR calculated usin g 2020 CKD-EPI equation. Calcium 8.6(L) 8.8 - 10.4 mg/dL 05/27/2024 7:06 AM CDT LABORATORY Comment:Reference intervals for this test were updated on 03/08/2024 to reflect our healthy population more accurately. There may be differences in the flagging of prior results with similar values performed with this method. Those prior results can be interpreted in the context of the updated reference intervals. Chloride 91(L) 98 - 107 mmol/L 05/27/2024 7:06 AM CDT LABORATORY Glucose 112(H) 70 - 99 mg/dL [...] Thompson MD LAB - BLOOD ORDERABL ES [facility] Lab [address] Lab (1st floor, no room number) [address] [place] [address] * (ABNORMAL) Lipase (05/27/2024 6:25 AM CDT) Lipase 63(H) 13 - 60 U/L 05/27/2024 7:06 AM CDT LABORATORY Blood STRUCTURE OF RIGHT UPPER LIMB / Unknown Venipuncture / Unknown 05/27/2024 6:25 AM CDT 05/27/2024 6:38 AM CDT Dorita Thompson MD LAB - BLOOD ORDERABL ES [facility] [address] Lab (1st floor, no room number) [place] [id number] [place] [address] * (ABNORMAL) CBC with platelets (05/27/2024 6:25 [...] Thompson MD LAB - BLOOD ORDERABL ES [facility] Lab [address] Lab (1st floor, no room number) [place] [address] * (ABNORMAL) Sodium (05/27/2024 1:00 AM CDT) Sodium 127(L) 135 - 145 mmol/L 05/27/2024 1:32 AM CDT [facility] LABORATORY Blood BLOOD SPECIMEN / Unknown Venipuncture / Unknown 05/27/2024 1:00 AM CDT 05/27/2024 1:04 AM CDT Kenneth Mayen MD LAB - BLOOD ORDERABL ES [facility] LAB[facility]AT[facility] Lab [address] Lab (1st floor, no room number) [place] [address], [facility] * (ABNORMAL) Sodium (05/26/2024 5:43 PM CDT) Sodium 123(L) 135 - 145 mmol/L 05/26/2024 6:23 PM CDT [facility] LAB[facility] Blood STRUCTURE OF LEFT UPPER LIMB / Unknown Venipuncture / Unknown 05/26/2024 5:43 PM CDT 05/26/2024 5:59 PM CDT Kenneth Mayen MD LAB - BLOOD ORDERABL ES [facility] [address] Lab (1st floor, no room number) [place] [address], [facility] * Osmolality urine (05/26/2024 5:17 PM CDT) Pathologist [facility] Osmolality Urine 574 100 - 1,200 mmol/kg [...] LAB - URINE ORDERABL ES UU LABORATORY [facility] [place] [facility] [address] [place] [address], [facility] * Sodium random urine (05/26/2024 5:17 [...] MD LAB - URINE ORDERABL ES LABORATORY [facility] [address] Lab (1st floor, no room number) [place] [address] * XR ERCP (05/26/2024 2:56 PM CDT) Narrative RADIANT - 05/26/2024 2:58 PM CDT This exam was marked as non-reportable because it will not be read by a radiologist or a Colon non-radiologist provider. Jefferson Gama MD IMG DIAGNOSTIC I MAGING ORDERABLES RADIANT * ENDOSCOPIC RETROGRADE CHOLANGIOPANCREATOGRAPHY (05/26/2024 1:39 PM CDT) Pathologist [facility] ERCP [facility] Patient Name: Car Calvert ? Procedure [...] Exera II Duodenovideoscope (ERCP), Model # ?[id number]-[id number], [facility] # [id number] was introduced ?through the mouth, and used to inject contrast into ?and used to inject contrast into the bile duct. The ?ERCP was accomplished without difficulty. The ?patient tolerated the procedure well. ? Findings: ? The pulp and paper tester film was normal. The esophagus was successfully [...] Note Initiated On: 05/26/2024 1:39 PM MRN: ?[id number] Procedure Date: ? 05/26/2024 1:39:55 PM Total [...] PM CDT 05/26/2024 12:33 PM CDT Seth WHITTAKER - DANI POCT RH LABORATORY POC [facility] Lab [address] Lab (1st floor, no room number) [place] [address] * (ABNORMAL) Potassium (05/26/2024 12:04 PM CDT) Potassium 3.3(L) 3.4 - 5.3 mmol/L 05/26/2024 12:42 PM CDT [facility] LABORATORY Blood STRUCTURE OF RIGHT HAND / Unknown Venipuncture / Unknown 05/26/2024 12:04 PM CDT 05/26/2024 12:19 PM CDT Dorita Thompson MD LAB - BLOOD ORDERABL ES Performing Organization Address [facility]/ZIP Co de Phone Number [facility] [address] Lab (1st floor, no room number) [address] * (ABNORMAL) Sodium (05/26/2024 12:04 PM CDT) Sodium 122(L) 135 - 145 mmol/L 05/26/2024 12:45 PM CDT [facility] LAB[facility]AT[facility] Blood STRUCTURE OF RIGHT HAND / Unknown Venipuncture / Unknown 05/26/2024 12:04 PM CDT 05/26/2024 12:19 PM CDT Kenneth Mayen MD LAB - BLOOD ORDERABL ES Performing Organization Address [facility]/ZIP Co de Phone Number [facility] [address] Lab (1st floor, no room number) [address] * INR (05/26/2024 9:47 AM CDT) INR 1.10 0.85 - 1.15 05/26/2024 10:12 AM CDT [facility] Blood STRUCTURE OF RIGHT HAND / Unknown Venipuncture / Unknown 05/26/2024 9:47 AM CDT 05/26/2024 9:56 AM CDT Asuncion Flynn PA-C LAB - BLOOD ORDERABLES Performing Organization Address City/[facility] [address]/ZIP Co de Phone Number [facility] Care Lab [address] [address] [facility] (1st floor, no room number) [address] * TSH with free T4 reflex (05/26/2024 6:49 AM CDT) TSH 1.27 0.30 - 4.20 uIU/mL 05/26/2024 12:29 PM CDT [facility] Blood STRUCTURE OF RIGHT HAND / Unknown Venipuncture / Unknown 05/26/2024 6:49 AM CDT 05/26/2024 6:59 AM CDT Dorita Thompson MD LAB - BLOOD ORDERABL ES [facility] Lab [address] Lab (1st floor, no room number) [place] [address] * (ABNORMAL) Magnesium (05/26/2024 6:49 AM CDT) [facility] Magnesium 1.5(L) 1.7 - 2.3 mg/dL 05/26/2024 8:55 AM CDT [facility] Blood STRUCTURE OF RIGHT HAND / Unknown Venipuncture / Unknown 05/26/2024 6:49 AM CDT 05/26/2024 6:59 AM CDT Dorita Thompson MD LAB - BLOOD ORDERABL ES [facility] Lab [address] Lab (1st floor, no room number) [place] [phone] [place] [address] * (ABNORMAL) CBC with platelets (05/26/2024 6:49 AM CDT) [facility] WBC Count 9.7 4.0 - 11.0 [...] - 33.0 pg 05/26/2024 7:02 AM CDT LABORATORY MCHC 34.2 31.5 - 36.5 g/dL 05/26/2024 7:02 AM CDT LABORATORY RDW 13.5 10.0 - 15.0 % 05/26/2024 7:02 AM CDT LABORATORY Platelet Count 123(L) 150 - 450 10e3/uL 05/26/2024 7:02 AM CDT LABORATORY Blood STRUCTURE OF RIGHT HAND / Unknown Venipuncture / Unknown 05/26/2024 6:49 AM CDT 05/26/2024 7:00 AM CDT Sulaiman Wan MD LAB - BLOOD ORDERABL ES LABORATORY [facility] Lab [address] [facility] Lab (1st floor, no room number) [place] [address] * (ABNORMAL) Comprehensive metabolic panel (05/26/2024 6:49 [...] MD LAB - BLOOD ORDERABL ES LABORATORY [facility] Lab [address] [facility] Lab (1st floor, no room number) [place] [address], [facility] * (ABNORMAL) Sodium (05/26/2024 12:23 AM CDT) Sodium 126(L) 135 - 145 mmol/L 05/26/2024 1:05 AM CDT LABORATORY Blood STRUCTURE OF FINGER OF RIGHT HAND / Unknown Capillary / Unknown 05/26/2024 12:23 AM CDT 05/26/2024 12:46 AM CDT Sulaiman Wan MD LAB - BLOOD ORDERABL ES [facility] Lab [address] [facility] Lab (1st floor, no room number) [place] [address], [facility] documented in this encounter Visit Diagnoses Diagnosis [...] Thu05/25/24 at 2330, Until Thu05/26/24 at 1601 Rate/Dose Change 05/26/2024 12:10 PM [...] Pharmacoprophylaxis, Pre-procedure 1021 ($Given - Provider: Concepcion Rosado, [employer]) famotidine (PEPCID) tablet 20 mg (CANCELED) 20 mg, Oral, 2 TIMES DAILY, First dose on Thu05/26/24 at 2100 2055 ($Given - Provider: Yunior Canales RN) [...] Intravenous, EVERY 6 HOURS, First dose on Thu05/26/24 at 0030, Lactated Ringer's solution is not compatible with piperacillin-tazobactam for injection., Indications: Intra-Abdominal Infection 0044 ($New Bag - Provider: Anne Henderson RN)0632 ($New Bag - Provider: Anne Henderson RN)1148 ($New Bag - Provider: Linda Walters RN)1217 (Auto Hold - Provider: Orders Generic Provider - Reason: Transfer to a procedural area)1551 (Unhold - Provider: Orders Generic Provider)1848 ($New Bag - Provider: Yunior Canales, YASEMIN) 0041 ($New Bag - Provider: Tristan Bourgeois, YASEMIN)0613 ($New Bag - Provider: Tristan Bourgeois, RN)0815 (Auto Hold - Provider: Orders Generic [...] dormant line 0044 ($Given - Provider: Anne Henderson, YASEMIN)0730 (Not Given - Provider: Anne Henderson RN [...] 1424 ($New Bag - Provider: Concepcion Rosado, [employer])1447 (Anesthesia Volume Adjustment - Provider: Jaja Hector, [employer]) sodium chloride 0.9 % infusion (CANCELED) at 75 mL/hr, Intravenous, CONTINUOUS, Starting on Thu05/26/24 at 1630, Until Thu05/26/24 at 1657 1631 ($New Bag - Provider: Yunior Canales, RN) sodium chloride 0.9 % infusion () at 75 mL/hr, Intravenous, CONTINUOUS, Please stop saline after this bag is completed due to supply shortage. , Starting on Thu05/26/24 at 1700, Until Thu05/27/24 at 0559 1716 (Rate/Dose Verify - Provider: Yunior Canales, RN) 0602 (Stopped - Provider: Tristan Bourgeois, RN) PRN Medication Order 05/26/2024 05/27/2024 05/28/2024 [...] MIN PRN, opioid reversal, Starting on Yara 103/24 at 0019, Administer intramuscular if an intravenous [...] vomiting, Administer over 2-5 Minutes, Starting on 05/25/24 at 2306, Give IF patient unable to [...] Orders Generic Provider)1641 ($Given - Provider: Yunior Canales, YASEMIN) 0815 [...] stools. documented in this encounter Care Teams Airplane Dispatcher Relationship Specialty Start Date End Date Dustin Victor MD [address] [address] PCP - General Family Medicine 04/01/23 documented as of this encounter
--- OUTSIDE RECORDS SUMMARY | 2024-06-03 09:29 | XMS_ITS | Clinical Summary ---
Author Organization [facility] Address [facility] [place] [address] Care Team Providers Care Community Board Member Name Role Phone Dustin Victor MD Primary Care Provider [phone] Allergies Active Allergy Reactions Criticality Noted Date [...] 0.4 mg by mouth daily. 02/18/2024 Active Oxford-3 Fatty Acids (FISH OIL) 1200 MG capsule [...] Description 05/27/2024 10:21 AM CDT Anesthesia Event [facility] [address] [place] [address] Leny Lyon MD Cole, Lisa Yolanda, APRN CRNA 05/27/2024 10:20 AM CDT - 05/27/2024 12:15 PM CDT Surgery [facility] Services [address] [place] [address] Kenneth Mayen MD Davinci Robot-Assisted Laparoscopic Cholecystectomy 05/26/2024 2:10 PM CDT Anesthesia Event [facility] [address] [place] [address] Car Underwood MD Anesthesia, MD Devendra 05/26/2024 1:50 PM CDT - 05/26/2024 2:45 PM CDT Surgery [facility] [address] [place] [address] Jefferson Gama MD ENDOSCOPIC RETROGRADE CHOLANGIOPANCREATOGRAPH Y, sphincterotomy and balloon extraction 05/25/2024 9:34 PM CDT - 05/28/2024 11:26 AM CDT Hospital Encounter [place] [address] [facility] [address] [place] [phone] Seth Rios MD Hess, Toy, MD Calculus [...] in an abandoned building, in an overnight chcf, or couch-surfing.) Yes 05/25/2024 Are you worried [...] 1950 FLEX SIG 1950 sDNA (Cologuard) 1950 Pneumococcal Vaccine: 65+ Years (1 of 2 - PCV) 1956 COLONOSCOPY 1960 COLORECTAL CANCER SCREENING 1960 HEPATITIS C SCREENING 1968 ZOSTER IMMUNIZATION (1 of 2) 1969 LIPID 1990 RSV VACCINE (1 - Risk 60-74 years 1-dose series) 2010 AORTIC ANEURYSM SCREENING (SYSTEM ASSIGNED) 2015 FALL RISK ASSESSMENT 2015 MEDICARE ANNUAL WELLNESS VISIT 2015 PHQ-2 (once per calendar year) 2023 COVID-19 Vaccine ( season) 2024 06/01/2023, 05/29/2022, 05/20/2021 INFLUENZA VACCINE (#1) 2024 3, 05/29/2022, 05/29/2022, Additional history exists GLUCOSE 05/28/2027 05/28/2024, 10/0 11/2023, 05/26/2024, Additional history exists DTAP/TDAP/TD IMMUNIZATION (3 - Td or Tdap) 02/11/2032 02/10/2022, 01/24/2011 HPV IMMUNIZATION Aged Out No longer e [...] Atrial Rate 86 BPM RADIOLOG Y RESULTS HI Interval 184 ms RADIOLOG Y RESULTS QRS Duration 102 ms RADIOLO GY RESULTS QT 388 ms RADIOLOGY RESULTS QTc 464 ms RADIOLOGY RESULTS P [place] 44 degrees RADIOLOGY RESULTS R AXIS 20 degrees RADIOLOGY RESULTS T [place] 23 degrees RADIOLOGY RESULTS Interpretation ECG Sinus [...] of3 resultswithin the time period is included. Pathologist [facility] Magnesium 2.3 1.7 - 2.3 mg/dL 05/28/2024 7:52 AM CDT LABORATORY Blood BLOOD SPECIMEN / Unknown Venipuncture / Unknown 05/28/2024 6:51 AM CDT 05/28/2024 7:02 AM CDT Seth Rios MD LAB - BLOOD ORDER MELYSSA LABORATORY [facility] Acute Care Lab [address] Lab (1st floor, no room number) [place] [address], [facility] * (ABNORMAL) Comprehensive metabolic panel (05/28/2024 6:51 AM CDT) Only the most recent of3 resultswithin the time period is included. Pathologist [facility] Sodium 131(L) 135 - 145 mmol/L 05/28/2024 [...] MD LAB - BLOOD ORDERABL ES LABORATORY [facility] Care Lab [address] Lab (1st floor, no room number) [address] * (ABNORMAL) Sodium (05/28/2024 6:51 AM CDT) Only the most recent of9 resultswithin the time period is included. Sodium 131(L) 135 - 145 mmol/L 05/28/2024 7:27 AM CDT [facility] LAB[facility]ORY Blood BLOOD SPECIMEN / Unknown Venipuncture / Unknown 05/28/2024 6:51 AM CDT 05/28/2024 7:02 AM CDT Kenneth Mayen MD LAB - BLOOD ORDERABL ES Performing Organization Address City/[facility]/ZIP Co de Phone Number LABORATORY [facility] Lab [address] Lab (1st floor, no room number) [address] * (ABNORMAL) CBC with platelets (05/28/2024 [...] LAB - BLOOD ORDERABL ES [facility] LABORATORY [facility] Acute Care Lab [address] [facility] Lab (1st floor, no room number) [place] [address] * Surgical Pathology Exam (05/27/2024 12:26 PM CDT) Case Report Surgical Pathology Report ? Case: [id number] ? Authorizing Provider: ??Kenneth Mayen MD ? Collected: ? 05/27/2024 12:26 PM ? Ordering Location: ? [facility] ?? Received: ?05/27/2024 12:51 PM ? Main OR ? Pathologist: ? Seth Vega MD ? Specimen: ?Gallbladder, GALLBLADDER AND CONTENTS ? 05/30/2024 1:55 PM [facility] LABORATORY Final Diagnosis Gallbladder, cholecystectomy: --Acute cholecystitis. 05/30/2024 1:55 PM [facility] LAB[facility] Clinical Information Procedure: Davinci Robot-Assisted Laparoscopic Cholecystectomy Pre-op Diagnosis: Cholecystitis [K81.9] Post-op Diagnosis: K81.9 - Cholecystitis [ICD-10-CM] 05/30/2024 1:55 PM [facility] Gross Description A(1). Gallbladder, GALLBLADDER AND [...] possible mass or nodularities are grossly identified. Superintendent Production sections of the gallbladder to include the cystic duct margin (inked black) are submitted in 1 cassette. (BRADFORD Perdomo (ASCP) 05/27/2024 1:27 PM 05/30/2024 1:55 PM [facility] LAB[facility] Microscopic Description Microscopic examination was performed. 05/30/2024 1:55 PM [facility] LABOR[facility] Performing Labs The technical component of this testing was completed at [facility]. Stain controls for all stains resulted within this report have been reviewed and show appropriate reactivity. 05/30/2024 1:55 PM CDT [facility] Case Images 05/30/2024 1:55 PM CDT [facility] Tissue GALLBLADDER PART / Unknown 05/27/2024 12:26 PM CDT 05/27/2024 12:51 PM CDT Kenneth WHITTAKER - DANI [facility] LABORATORY [facility] Acute Care Lab [address] [facility] Lab (1st floor, no room number) [place] [address] * ANE AIRWAY ETT PERFORMABLE (05/27/2024 10:30 AM CDT) Narrative Concepcion Rosado APRN CRNA - 05/27/2024 10:30 AM CDT Concepcion Rosado APRN CRNA ? 05/27/2024 10:38 AM Airway ? Patient location during procedure: OR ? Procedure Start/Stop Times: 05/27/2024 10:30 AM Staff - ? SUPERVISOR INTERNATIONAL RESERVATIONS: Concepcion Rosado APRN CRNA ? Performed By: SUPERVISOR INTERNATIONAL RESERVATIONS Consent for Airway ? Urgency: elective Indications [...] Time: 05/27/2024 10:30 AM Leny Lyon MD [facility] * (ABNORMAL) Lipase (05/27/2024 6:25 AM CDT) Lipase 63(H) 13 - 60 U/L 05/27/2024 7:06 AM CDT [facility] Blood STRUCTURE OF RIGHT UPPER LIMB / Unknown Venipuncture / Unknown 05/27/2024 6:25 AM CDT 05/27/2024 6:38 AM CDT Dorita Thompson MD LAB - BLOOD ORDERABL ES Performing Organization Address [facility]/ZIP Co de Phone Number [facility] Acute Care Lab [address] Lab (1st floor, no room number) [place] [phone] [place] [address] * Sodium random urine (05/26/2024 5:17 PM CDT) Sodium Urine mmol/L 52 mmol/L 05/26/2024 5:54 PM CDT [facility] Comment:The reference ranges have not been established in urine sodium. The results should be integrated into the clinical context for interpretation. Urine URINE SPECIMEN OBTAINED BY CLEAN CATCH PROCEDURE / Unknown Non-blood Collection / Unknown 05/26/2024 5:17 PM CDT 05/26/2024 5:25 PM CDT Dorita Thompson MD LAB - URINE ORDERABL ES Performing Organization Address [facility] Co de Phone Number [facility] Lab [address] Lab (1st floor, no room number) [address] * Osmolality urine (05/26/2024 5:17 PM [...] LAB - URINE ORDERABL ES U LABORATORY [facility] Core Lab [address] [facility], [address] [place] [address] * XR ERCP (05/26/2024 2:56 PM CDT) Narrative [facility] - 05/26/2024 2:58 PM CDT This exam was marked as non-reportable because it will not be read by a radiologist or a [facility] non-radiologist provider. Jefferson Gama MD IMG DIAGNOSTIC I MAGING ORDERABLES [facility] * ENDOSCOPIC RETROGRADE CHOLANGIOPANCREATOGRAPHY (05/26/2024 1:39 PM CDT) ERCP [facility] Patient Name: Car Calvert ? Procedure Date: 05/26/2024 1:39 PM ? Date of : 1950 ?Admit Type: Inpatient Age: 74 ? Gender: Male Attending MD: JEFFERSON GAMA MD, ??Total Sedation Time: Instrument Name: 264 - ERCP ? Procedure: ?ERCP Indications: ?Bile duct stone(s) Providers: ?JEFFERSON GAMA MD (Doctor) Referring : ? Other Clinic (Referring MD) Medicines: ?Monitored Anesthesia Care Complications: ?No immediate complications. Procedure: ?Pre-Anesthesia Assessment: ?- Pre-procedure physical examination revealed no ?contraindications to sedation. ?After obtaining informed consent, the scope was ?passed under direct vision. Throughout the ?procedure, the patient's blood pressure, pulse, and ?oxygen saturations were monitored continuously. The ?Totsy Exera II Duodenovideoscope (ERCP), Model # ?[id number], [facility] # [id number] was introduced ?through the mouth, and used to inject contrast into ?and used to inject contrast into the bile duct. The ?ERCP was accomplished without difficulty. The ?patient tolerated the procedure well. ? Findings: ? The pleater film was normal. The esophagus was successfully [...] Note Initiated On: 05/26/2024 1:39 PM MRN: ?[id number] Procedure Date: ? 05/26/2024 1:39:55 PM Total [...] 05/26/2024 12:33 PM CDT Seth Rios MD [facility] POCT [facility] LABORATORY POC [facility] Acute Care Lab [address] [facility] Lab (1st floor, no room number) [place] [address] * (ABNORMAL) Potassium (05/26/2024 12:04 PM CDT) Potassium 3.3(L) 3.4 - 5.3 mmol/L 05/26/2024 12:42 PM CDT [facility] LAB[facility]ORY Blood STRUCTURE OF RIGHT HAND / Unknown Venipuncture / Unknown 05/26/2024 12:04 PM CDT 05/26/2024 12:19 PM CDT Dorita Thompson MD LAB - BLOOD ORDERABL ES [facility] Acute Care Lab [address] Lab (1st floor, no room number) [address] * INR (05/26/2024 9:47 AM CDT) INR 1.10 0.85 - 1.15 05/26/2024 10:12 AM CDT [facility] LABORATORY Blood STRUCTURE OF RIGHT HAND / Unknown Venipuncture / Unknown 05/26/2024 9:47 AM CDT 05/26/2024 9:56 AM CDT Asuncion Flynn PA-C LAB - BLOOD ORDERABLES Performing Organization Address [facility]/ZIP Co de Phone Number [facility] Acute Care Lab [address] Lab (1st floor, no room number) [address] * TSH with free T4 reflex (05/26/2024 6:49 AM CDT) TSH 1.27 0.30 - 4.20 uIU/mL 05/26/2024 12:29 PM CDT [facility] LAB[facility]ORY Blood STRUCTURE OF RIGHT HAND / Unknown Venipuncture / Unknown 05/26/2024 6:49 AM CDT 05/26/2024 6:59 AM CDT Dorita Thompson MD LAB - BLOOD ORDERABL ES [facility] Acute Care Lab [address] Lab (1st floor, no room number) [address] from Last 3 Months Advance Directives For more information, please contact: [phone] * Full Code (Latest Code Status on File) Date Activated Date Inactivated Comments 05/25/2024 11:07 PM 05/28/2024 1:31 PM All basic a nd advanced life-sustaining interventions are performed as appropriate Question Answer Comments Code status determined by: Discussion with monica zhang/ legal decision maker Care Teams Community Board Member Relationship Specialty Start Date End Date Dustin Victor MD [facility] [address] [place] [address] PCP - General Family Medicine 04/01/23
--- OUTSIDE RECORDS SUMMARY | 2024-06-03 09:30 | XMS_ITS | Encounter Summary ---
Author Organization Wiley Address [facility] [place] [address] Care Team Providers Care Track Service Worker Name Role Phone Dustin Victor MD Primary Care Provider [phone] Reason for Visit * Auth/Cert (Routine) Specialty Diagnoses / Procedures Referred By Contac t Referred To Contact Med Surg Diagnoses Choledocolithiasis and cholecysitis Choledocholithiasis with obstruction 5 Medical Surgical [address] [place] [address] Referral ID Status Reason Start Date Expiration Date Visits Re quested Visits Authorized [id number] 1 1 Encounter Details Date Type Department Care Team (Late st Contact Info) Description 05/26/2024 1:50 PM CDT - 05/26/2024 2:45 PM CDT Surgery [facility] PeriOp Services [address] [place] [id number] Jefferson Gama MD [place] GASTROENTEROLOGY [address] [place] [address] ENDOSCOPIC RETROGRADE CHOLANGIOPANCREATOGRAPHY , sphincterotomy [...] Thompson MD - 05/28/2024 10:41 AM CDT [facility] Hospitalist Discharge Summary Date of [...] hypertension, hyperlipidemia, and obesity who presented to [facility] from outside hospital on 05/25/2024 with [...] mild biliary dilation. [facility]. Patient was empirically started on [...] minutes discharging this patient. Dorita Thompson MD [place] [address] MEDICAL SURGICAL [address] [facility] [address] Physical Exam Vital Signs: Temp: 97.9 ??F [...] tablet Take 1 tablet by mouth daily. [place]-3 Fatty Acids (FISH OIL) 1200 MG capsule [...] to be seen, please call us at [phone]. We are located at: [address], [address]; [place] [address] INCISIONAL CARE: Replace the bandage over your [...] to discuss with the nurse or physician medical administrative assistant. # There is a surgeon DOCK MANAGER on weekday evenings and over the weekend [...] Take 1 tablet by mouth daily. 01/11/2024 [place]-3 Fatty Acids (FISH OIL) 1200 MG capsule [...] Osorio PA-C - 05/28/2024 9:26 AM CDT [facility] General Surgery Progress Note Assessment and [...] = values in this interval not displayed. Brab Osorio PA-C Text page: [phone] 8 am to 4 pm After 4 pm, call * Dorita Thompson MD - 05/27/2024 7:52 PM CDT [facility] Medicine Progress Note - Hospitalist Service Date of Admission: 05/25/2024 Assessment & Plan Car Calvert is a 74 year old male with past medical history significant for interstitial lung disease, hypertension, hyperlipidemia, and obesity who presented to [facility] from outside hospital on 05/25/2024 with [...] mild biliary dilation. Patient subsequently [facility] . Patient underwent stone [...] Anticipated tomorrow Dorita Thompson MD Hospitalist Service [facility] Securely message with Snapt (more info) Text page via [facility] Paging/Directory Interval History No acute events [...] surg), Dr. Gama (GI). Dannie Simmons MD [facility] consultants Office: [phone] Interval History: No acute events overnight Na [...] medications, labs and imaging. Dannie Simmons MD [facility] - Nephrology Office: [phone] * Dorita Thompson MD - 05/26/2024 4:03 PM CDT [facility] Medicine Progress Note - Hospitalist Service Date of Admission: 05/25/2024 Assessment & Plan Car Calvert is a 74 year old male with past medical history significant for interstitial lung disease, hypertension, hyperlipidemia, and obesity who presented to [facility] from outside hospital on 05/25/2024 with [...] mild biliary dilation. Patient subsequently [facility] -GI consulted, appreciate recommendations. Status post ERCP, no report available to review at the time of writing this note -GS consulted -continue zosyn 3.375mg Q6H IV -Pain control and antiemetics PRN -Normal saline at 75 mL/h Hyponatremia Na 123 at OSH. Started on mIVF. Rechecking sodium on admission to [facility] and will continues fluids forgoal correction to [...] 2-4 Days Dorita Thompson MD Hospitalist Service [facility] Securely message with Snapt (more info) Text page via [employer] Paging/Directory Interval History No acute events overnight. [...] Interventions Taken No adjustments needed Admission/Transfer from: [facility] 2 RN skin assessment completed. Yes Significant findings include: None LDA added (if applicable)? Not Applicable Requested WO Nurse Consult from MD? Not Applicable [facility] RN documented in this encounter H&P Notes * Sulaiman Wan MD - 05/25/2024 11:18 PM CDT [facility] History and Physical - Hospitalist Service Date of Admission: 05/25/2024 Assessment & Plan Car Calvert is a 74 year old male with past medical history significant for interstitial lung disease, hypertension, hyperlipidemia, and obesity who presented to [facility] from outside hospital on 05/25/2024 with [...] mild biliary dilation. Patient subsequently [facility] tomorrow. Of note, this was apparently confirmed with GI that it could be performedat [facility] prior to patient being transferred. Will continue antibiotics overnightto make patient NPO with anticipation of procedure tomorrow. -GI consulted, appreciate recommendations -Likely ERCP tomorrow -NPO @ 0000 -zosyn 3.375mg Q6H IV -Pain control and antiemetics PRN Hyponatremia Na 123 at OSH. Started on mIVF. Rechecking sodium on admission to [facility] and will continues fluids forgoal correction to [...] 2-4 Days Sulaiman Wan MD Hospitalist Service [facility] Securely message with Snapt (more info) Text page via [facility] Paging/Directory Chief Complaint Abdominal pain History is obtained from the patient History of Present Illness Car Calvert is a 74 year old male with past medical history significant for interstitial lung disease, hypertension, hyperlipidemia, and obesity who presented to [facility] from outside hospital on 05/25/2024 with [...] of drink. He presented earlier today to [facility] emergency department. Laboratory studies revealed a mild [...] physician reportedly discussed with general surgery at [facility], who stated that the patient should be transferred for ERCP as it could not be performed at that location. He was provided with Zosyn + fluids prior to transfer. Patient was subsequently transferred to [facility] where he is thus far been [...] 74 year old male who presented to [facility] ED two days ago with right upper [...] mL bag 3.375 g Intravenous Q6H Sulaiman aWn MD 3.375 g at 05/27/24 0613 [Auto [...] 5:08 PM CDTAssociated Order(s): NEPHROLOGY IP CONSULT [facility] Nephrology Consultation Date of Admission: [...] (hospitalist), Dr. Gama (GI). Dannie Simmons MD [facility] - Nephrology [phone] Reason for Consult I was asked to [...] with obstructing 3mm CBD stone. Transferred to [facility] for ERCP and further treatment. Given [...] Sig: Take 81 mg by mouth daily. [place]-3 Fatty Acids (FISH OIL) 1200 MG capsule [...] PROTEIN, UROBILINOGEN, NITRITE, LEUKEST Dannie Simmons MD [facility] - Nephrology [phone] * Jefferson Gama MD - 05/26/2024 9:11 AM CDTAssociated Order(s): GASTROENTEROLOGY IP CONSULT Images from the original note were not included. GASTROENTEROLOGY CONSULTATION Car Calvert [address] [place] [address] 74 year old male Admission Date/Time: 05/25/2024 Primary Care Provider: Dustin Victor Referring / Attending Physician: Dr. Wan We were asked to see the patient in consultation by Dr. Wan for evaluation of choledocholithiasis. HPI: Car Calvert is a 74 year old male with medical history of hypertension, hyperlipidemia, kidney stones, interstitial lung disease, who was transferred from [facility] with acute abdominal pain found [...] daily. 01/11/24 Yes Unknown, Entered By History [place]-3 Fatty Acids (FISH OIL) 1200 MG capsule [...] ALT 208* AST 90* IMAGING / ENDOSCOPY [facility] per report. I am unable to view these currently. CONSULTATION ASSESSMENT AND PLAN: Car Calvert is a 74 year old with medical history of hypertension, hyperlipidemia, kidney stones, interstitial lung disease, who was transferred from [facility] with acute abdominal pain found to have MRCP evidence of cholelithiasis, and choledocholithiasis. 1. Choledocholithiasis: As evidenced on MRCP with a 3 mm stone in the CBD. He is currently afebrile. LFTs have mildly improved. He continues on antibiotics. Abdominal pain is improving. Plan for ERCPthis afternoon here at [facility]. General surgery consult for discussion of [...] patient evaluation, reviewing documentation/ test results, and blood bank order control clerk. Chelita Flynn PA-C [facility] ( [facility]) [place] note Patient seen and examined. [...] by surgery for cholecystectomy. Jefferson Gama MD [facility] 20 minutes spent documented in this encounter Miscellaneous Notes * Plan of Care - Blayne Montanez RN - 05/28/2024 6:17 AM CDT For vital signs and complete assessments, please see documentation flowsheets. [phone] Pertinent assessments: Pt A&Ox4. On RA. Afebrile. [...] shift note. Outcome: Progressing Flowsheets (Taken 05/27/2024 2285) Outcome Evaluation: Discharge pending. Plan of Care [...] Pertinent assessments: Assumed care of pt from [phone]. POD #1 from ERCP, POD #0 from [...] Documentation Taken 05/27/2024 1450 by [facility] lan/wan engineer Review/Management: medications reviewed * Brief Op Note - Kenneth Mayen MD - 05/27/2024 12:37 PM CDT [facility] Brief Operative Note Pre-operative diagnosis: [...] Mayen MD - 05/27/2024 10:41 AM CDT [facility] General Surgery Operative Note Pre-operative diagnosis: choledocholithiasis Post-operative diagnosis: same Procedure: laparoscopic cholecystectomy with modifer 22 - approximately 1 hour of additional time to complete the case due to a chronically inflamed, scarred, and contracted gallbladder Surgeon: Kenneth Mayen MD Special Services Coordinator(s): Barb Osorio PA-C The Physician Special Services Coordinator was medically necessary for their expertise in [...] documentation flowsheets. Pertinent assessments: Assumed care @ [phone]. POD #01 from ERCP. Pain controlled with oxycodone,given x 1. denies nausea and SOB. Afebrile, VSS. A&Ox4. Afebrile. On room air. IV fluids infusing. Tolerating clear liquids. Telemetry Major Shift Events: NPO midnight. Treatment Plan: NPO at [place], cholecystectomy with Gen Surg, IV fluids, trend [...] Wellbeing Recent Flowsheet Documentation Taken 05/27/2024228 by Tritsan Bourgeois RN Supportive Measures: active listening utilized [...] to clear liquids. Treatment Plan: NPO at [place], cholecystectomy with Gen Surg, IV fluids, trend [...] shift note. Outcome: Progressing Flowsheets (Taken 05/26/2024 7534) Outcome Evaluation: Probable cholecystectomy with Gen Surg [...] and CareEverywhere/SureScripts via in-person Changes made to APPLICATION SUPPORT ANALYST medication list: Added: All Deleted: None Changed: None Allergies reviewed with patient and updates made in EHR: yes Medication History Completed By: Moses Carson RPH 05/26/2024 8:48 AM APPLICATION SUPPORT ANALYST Med List Medication Sig Last Dose amLODIPine [...] Take 1 tablet by mouth daily. 05/23/2024 [place]-3 Fatty Acids (FISH OIL) 1200 MG capsule [...] see documentation flowsheets. Pertinent assessments: Care assumed [id number]. A&O x4. Able to correctly answer questions [...] probably ERCP today. Tele runningST 130's per inbound telemarketer. Pt also constantly pulling tele leads off [...] shift note. Outcome: Progressing Flowsheets (Taken 05/25/2024 3288) Outcome Evaluation: up to floor at 2130, [...] Scheduled Procedures Name Priority Associated Diagnoses Date/Ti dc CHOLECYSTECTOMY, LAPAROSCOPIC Calculus of bile duct with [...] PATHOLOGY EXAM Routine 05/27/20 12:26 PM CDT MAGNESIUM Add-On 05/27/2024 6:25 AM [...] Atrial Rate 86 BPM RADIOLOG Y RESULTS GA Interval 184 ms RADIOLOG Y RESULTS QRS Duration 102 ms RADIOLO GY RESULTS QT 388 ms RADIOLOGY RESULTS QTc 464 ms RADIOLOGY RESULTS P [place] 44 degrees RADIOLOGY RESULTS R AXIS 20 degrees RADIOLOGY RESULTS T [place] 23 degrees RADIOLOGY RESULTS Interpretation ECG Sinus [...] Rios MD LAB - BLOOD ORDER MELYSSA [facility] [address] Lab (1st floor, no room number) [address] * (ABNORMAL) Sodium (05/28/2024 6:51 AM CDT) Sodium 131(L) 135 - 145 mmol/L 05/28/2024 7:27 AM CDT LABORATORY Blood BLOOD SPECIMEN / Unknown Venipuncture / Unknown 05/28/2024 6:51 AM CDT 05/28/2024 7:02 AM CDT Kenneth Mayen MD LAB - BLOOD ORDERABL ES Performing Organization Address City/[facility]/ZIP Co de Phone Number [facility] [address] Lab (1st floor, no room number) [address] * (ABNORMAL) Comprehensive metabolic panel (05/28/2024 [...] LAB - BLOOD ORDERABL ES RH LABORATORY [facility] Lab [address] Lab (1st floor, no room number) [place] [address], [facility] * (ABNORMAL) CBC with platelets (05/28/2024 [...] Thompson MD LAB - BLOOD ORDERABL ES [facility] Lab [address] Lab (1st floor, no room number) [address] * (ABNORMAL) Sodium (05/27/2024 11:40 PM CDT) Sodium 129(L) 135 - 145 mmol/L 05/28/2024 12:02 AM CDT RH LABORATORY Blood BLOOD SPECIMEN / Unknown Venipuncture / Unknown 05/27/2024 11:40 PM CDT 05/27/2024 11:44 PM CDT Kenneth Mayen MD LAB - BLOOD ORDERABL ES [facility] [address] Lab (1st floor, no room number) [address] [place] [address] * (ABNORMAL) Sodium (05/27/2024 5:50 PM CDT) Sodium 125(L) 135 - 145 mmol/L 05/27/2024 6:19 PM CDT RH LABORATORY Blood STRUCTURE OF LEFT UPPER LIMB / Unknown Venipuncture / Unknown 05/27/2024 5:50 PM CDT 05/27/2024 5:54 PM CDT Kenneth Mayen MD LAB - BLOOD ORDERABL ES Performing Organization Address [facility] Co de Phone Number [facility] [address] Lab (1st floor, no room number) [address] * (ABNORMAL) Sodium (05/27/2024 1:50 PM CDT) Sodium 123(L) 135 - 145 mmol/L 05/27/2024 2:32 PM CDT LABORATORY Blood STRUCTURE OF RIGHT UPPER LIMB / Unknown Venipuncture / Unknown 05/27/2024 1:50 PM CDT 05/27/2024 1:59 PM CDT Kenneth Mayen MD LAB - BLOOD ORDERABL ES Performing Organization Address [facility] de Phone Number [facility] [address] Lab (1st floor, no room number) [address] * Surgical Pathology Exam (05/27/2024 12:26 PM CDT) Case Report Surgical Pathology Report ? Case: [id number] ? Authorizing Provider: ??Kenneth Mayen MD ? Collected: ? 05/27/2024 12:26 PM ? Ordering Location: ? [facility] ?? Received: ?05/27/2024 12:51 PM ? [...] possible mass or nodularities are grossly identified. Final Cleaner sections of the gallbladder to include the cystic duct margin (inked black) are submitted in 1 cassette. (BRADFORD Perdomo (ASCP) 05/27/2024 1:27 PM 05/30/2024 1:55 PM CDT LABORATORY Microscopic Description Microscopic examination was performed. 05/30/2024 1:55 PM CDT LABORATORY Performing Labs The technical component of this testing was completed at [facility]. Stain controls for all stains resulted within this report have been reviewed and show appropriate reactivity. 05/30/2024 1:55 PM CDT LABORATORY Case Images 05/30/2024 1:55 PM CDT LABORATORY Tissue GALLBLADDER PART / Unknown 05/27/2024 12:26 PM CDT 05/27/2024 12:51 PM CDT Kenneth WHITTAKER - BEAKER AP Performing Organization Address City/[facility]/ZIP Co de Phone Number [facility] Lab [address] Lab (1st floor, no room number) [place] [address], [facility] * Magnesium (05/27/2024 6:25 AM CDT) Magnesium 1.9 1.7 - 2.3 mg/dL 05/27/2024 8:21 AM CDT LABORATORY Blood STRUCTURE OF RIGHT UPPER LIMB / Unknown Venipuncture / Unknown 05/27/2024 6:25 AM CDT 05/27/2024 6:38 AM CDT Dorita Thompson MD LAB - BLOOD ORDERABL ES [facility] Lab [address] Lab (1st floor, no room number) [place] [address], [facility] * (ABNORMAL) Sodium (05/27/2024 6:25 AM CDT) Sodium 123(L) 135 - 145 mmol/L 05/27/2024 7:06 AM CDT LABORATORY Blood STRUCTURE OF RIGHT UPPER LIMB / Unknown Venipuncture / Unknown 05/27/2024 6:25 AM CDT 05/27/2024 6:38 AM CDT Kenneth Mayen MD LAB - BLOOD ORDERABL ES LABORATORY [facility] [address] [facility] ([facility], no room number) [place] [address] * (ABNORMAL) Comprehensive metabolic panel (05/27/2024 [...] Thompson MD LAB - BLOOD ORDERABL ES [facility] Lab [address] Lab (1st floor, no room number) [address] * (ABNORMAL) Lipase (05/27/2024 6:25 AM CDT) Lipase 63(H) 13 - 60 U/L 05/27/2024 7:06 AM CDT LABORATORY Blood STRUCTURE OF RIGHT UPPER LIMB / Unknown Venipuncture / Unknown 05/27/2024 6:25 AM CDT 05/27/2024 6:38 AM CDT Dorita Thompson MD LAB - BLOOD ORDERABL ES [facility] [address] Lab (1st floor, no room number) [address] * (ABNORMAL) CBC with platelets (05/27/2024 [...] MD LAB - BLOOD ORDERABL ES LABORATORY [facility] [address] Lab (1st floor, no room number) [place] [address] * (ABNORMAL) Sodium (05/27/2024 1:00 AM CDT) Sodium 127(L) 135 - 145 mmol/L 05/27/2024 1:32 AM CDT RH LABORATORY Blood BLOOD SPECIMEN / Unknown Venipuncture / Unknown 05/27/2024 1:00 AM CDT 05/27/2024 1:04 AM CDT Kenneth Mayen MD LAB - BLOOD ORDERABL ES LABORATORY [facility] [address] Lab (1st floor, no room number) [place] [address], [facility] * (ABNORMAL) Sodium (05/26/2024 5:43 PM CDT) Sodium 123(L) 135 - 145 mmol/L 05/26/2024 6:23 PM CDT LABORATORY Blood STRUCTURE OF LEFT UPPER LIMB / Unknown Venipuncture / Unknown 05/26/2024 5:43 PM CDT 05/26/2024 5:59 PM CDT Kenneth Mayen MD LAB - BLOOD ORDERABL ES Performing Organization Address City/[facility]/ZIP Co de Phone Number LABORATORY [facility] [address] Lab (1st floor, no room number) [place] [address], [facility] * Osmolality urine (05/26/2024 5:17 PM [...] LAB - URINE ORDERABL ES UU LABORATORY [facility] [place] [facility] [address] [place] [address], [facility] * Sodium random urine (05/26/2024 5:17 [...] MD LAB - URINE ORDERABL ES LABORATORY [facility] [address] Lab (1st floor, no room number) [place] [address] * XR ERCP (05/26/2024 2:56 PM CDT) Narrative [facility]ANT - 05/26/2024 2:58 PM CDT This exam was marked as non-reportable because it will not be read by a radiologist or a [employer] non-radiologist provider. Jefferson Gama MD IMG DIAGNOSTIC I MAGING ORDERABLES [facility] * ENDOSCOPIC RETROGRADE CHOLANGIOPANCREATOGRAPHY (05/26/2024 1:39 PM CDT) Pathologist [facility] ERCP [facility] Patient Name: Car Rosario Calvert ? Procedure Date: 05/26/2024 1:39 PM [...] and ?oxygen saturations were monitored continuously. The ?[employer] Exera II Duodenovideoscope (ERCP), Model # ?[id number]-[id number], [facility] # [id number] was introduced ?through the mouth, and used to inject contrast into ?and used to inject contrast into the bile duct. The ?ERCP was accomplished without difficulty. The ?patient tolerated the procedure well. ? Findings: ? The silver buffer film was normal. The esophagus was successfully [...] Note Initiated On: 05/26/2024 1:39 PM MRN: ?[id number] Procedure Date: ? 05/26/2024 1:39:55 PM Total [...] PM CDT Seth WHITTAKER - DANI POCT LABORATORY POC [facility] [address] Lab (1st floor, no room number) [place] [address] * (ABNORMAL) Potassium (05/26/2024 12:04 PM CDT) Potassium 3.3(L) 3.4 - 5.3 mmol/L 05/26/2024 12:42 PM CDT RH LABORATORY Blood STRUCTURE OF RIGHT HAND / Unknown Venipuncture / Unknown 05/26/2024 12:04 PM CDT 05/26/2024 12:19 PM CDT Dorita Thompson MD LAB - BLOOD ORDERABL ES Performing Organization Address [facility]/ZIP Co de Phone Number [facility] [address] Lab (1st floor, no room number) [address] * (ABNORMAL) Sodium (05/26/2024 12:04 PM CDT) Sodium 122(L) 135 - 145 mmol/L 05/26/2024 12:45 PM CDT RH LABORATORY Blood STRUCTURE OF RIGHT HAND / Unknown Venipuncture / Unknown 05/26/2024 12:04 PM CDT 05/26/2024 12:19 PM CDT Kenneth Mayen MD LAB - BLOOD ORDERABL ES Performing Organization Address [facility]/ZIP Co de Phone Number [facility] [address] Lab (1st floor, no room number) [address] * INR (05/26/2024 9:47 AM CDT) INR 1.10 0.85 - 1.15 05/26/2024 10:12 AM CDT RH LABORATORY Blood STRUCTURE OF RIGHT HAND / Unknown Venipuncture / Unknown 05/26/2024 9:47 AM CDT 05/26/2024 9:56 AM CDT Asuncion Flynn PA-C LAB - BLOOD ORDERABLES [facility] [address] Lab (1st floor, no room number) [address] * TSH with free T4 reflex (05/26/2024 6:49 AM CDT) [facility] TSH 1.27 0.30 - 4.20 uIU/mL 05/26/2024 12:29 PM CDT RH LABORATORY Blood STRUCTURE OF RIGHT HAND / Unknown Venipuncture / Unknown 05/26/2024 6:49 AM CDT 05/26/2024 6:59 AM CDT Dorita Thompson MD LAB - BLOOD ORDERABL ES [facility] Lab [address] Lab (1st floor, no room number) [address] [place] [address] * (ABNORMAL) Magnesium (05/26/2024 6:49 AM CDT) [facility] Magnesium 1.5(L) 1.7 - 2.3 mg/dL 05/26/2024 8:55 AM CDT RH LABORATORY Blood STRUCTURE OF RIGHT HAND / Unknown Venipuncture / Unknown 05/26/2024 6:49 AM CDT 05/26/2024 6:59 AM CDT Dorita Thompson MD LAB - BLOOD ORDERABL ES Performing Organization Address City/[facility]/ZIP Co de Phone Number [facility] Lab [address] Lab (1st floor, no room number) [address] * (ABNORMAL) CBC with platelets (05/26/2024 6:49 AM CDT) [facility] WBC Count 9.7 4.0 - 11.0 10e3/uL 05/26/2024 7:02 AM CDT RH LABORATORY RBC Count 4.12(L) 4.40 - 5.90 10e6/uL 05/26/2024 7:02 AM CDT RH LABORATORY Hemoglobin 12.5(L) 13.3 - 17.7 g/dL 05/26/2024 7:02 AM CDT RH LABORATORY Hematocrit 36.6(L) 40.0 - 53.0 % 05/26/2024 7:02 AM CDT RH LABORATORY MCV 89 78 - 100 fL 05/26/2024 7:02 AM CDT LABORATORY MCH 30.3 26.5 - 33.0 pg [...] MD LAB - BLOOD ORDERABL ES LABORATORY [facility] [address] Lab (1st floor, no room number) [place] [address] * (ABNORMAL) Comprehensive metabolic panel (05/26/2024 [...] MD LAB - BLOOD ORDERABL ES LABORATORY [facility] [address] Lab (1st floor, no room number) [place] [address], [facility] * (ABNORMAL) Sodium (05/26/2024 12:23 AM CDT) Sodium 126(L) 135 - 145 mmol/L 05/26/2024 1:05 AM [facility] LABORATORY Blood STRUCTURE OF FINGER OF RIGHT HAND / Unknown Capillary / Unknown 05/26/2024 12:23 AM CDT 05/26/2024 12:46 AM CDT Sulaiman Wan MD LAB - BLOOD ORDERABL ES [facility] [address] (1st floor, no room number) [place] [address], [facility] documented in this encounter Visit Diagnoses [...] 1 Minutes, Starting on 05/25/24 at 2306 hydrALAZINE (APRESOLINE) tablet 10 mg 10 mg, Oral, EVERY 4 HOURS PRN, high blood pressure, for systolic BP greater than 180 mmHg, Starting on 05/25/24 at 2306 iopamidol 61% (ISOVUE 300) 50 [...] 0.4 mg, Oral, DAILY, First dose on Yara 05/26/24 at 1630, Administer 30 minutes after the [...] 1021 ($Given - Provider: Concepcion Rosado, SOFYA ENVIRONMENTAL SERVICES MANAGER) famotidine (PEPCID) tablet 20 mg (CANCELED) 20 [...] EVERY MORNING BEFORE BREAKFAST, First dose on 05/27/24 at 1530, DO NOT CRUSH. 1603 ($Given [...] mEq (COMPLETED) 40 mEq, Oral, ONCE, On Thu05/26/24 at 0830, For 1 dose, Potassium level [...] RN) 0822 ($Given - Provider: Stone Hall, RN) tamsulosin (FLOMAX) capsule 0.4 mg 0.4 [...] 1424 ($New Bag - Provider: Concepcion Rosado, PLISSE MACHINE OPERATOR ENVIRONMENTAL SERVICES MANAGER)1447 (Anesthesia Volume Adjustment - Provider: Jaja Hector PLISSE MACHINE OPERATOR ENVIRONMENTAL SERVICES MANAGER) sodium chloride 0.9 % infusion (CANCELED) at [...] PACU 1313 ($Given - Provider: Layla Kee, YASEMIN)1327 ($Given - Provider: Layla Kee RN) hydrALAZINE [...] stools. documented in this encounter Care Teams Track Service Worker Relationship Specialty Start Date End Date Dustin Victor MD [facility] [id number], [place] [address] PCP - General Family Medicine 04/01/23 documented as of this encounter
--- OUTSIDE RECORDS SUMMARY | 2024-06-03 09:30 | XMS_ITS | Encounter Summary ---
Author Organization [facility] Address [address] [place] [address]. [place] [address] Care Team Providers Care Seamless Hosiery Knitter Name Role Phone Dustin Victor MD Primary Care Provider [phone] Reason for Visit * Auth/Cert (Routine) Specialty Diagnoses / Procedures Referred By Juice t Referred To Contact Med Surg Diagnoses Choledocolithiasis and cholecysitis Choledocholithiasis with obstruction 5 [facility] [address] [place] [address] Referral ID Status Reason Start Date Expiration Date Visits Re quested Visits Authorized [id number] 1 1 Encounter Details Date Type Department Care Team (Late st Contact Info) Description 05/27/2024 10:20 AM CDT - 05/27/2024 12:15 PM CDT Surgery [facility] PeriOp Services [address] [place] [phone] Kenneth Mayen MD [address] [place] [address] Davinci Robot-Assisted Laparoscopic Cholecystectomy Surgery Details Date/Time Status Location OR Service Patient Class Case Cl ass Case Type Trauma Case? 05/27/24 10:20 AM Posted RH OR OR 01 General Inpatient NEST 2 - Emergent (within 1hr) Panel 1 Procedure LRB Anes Op Region Wound Class Comments Davinci Robot-Assisted Lapar oscopic Cholecystectomy N/A General Abdomen III-Contaminated Surgeon Surgeon Role Service Panel Kenneth Mayen MD Primary General 1 Barb Osorio PA-C Assisting Care Worker Aneudy mays 1 documented in this encounter Social History [...] in an abandoned building, in an overnight [place] [facility], or couch-surfing.) Yes 05/25/2024 Are you worried [...] Thompson MD - 05/28/2024 10:41 AM CDT [facility] Hospitalist Discharge Summary Date of Admission: 05/25/2024 [...] hypertension, hyperlipidemia, and obesity who presented to [facility] from outside hospital on 05/25/2024 with acute [...] Full Code Time Spent on this Encounter IDorita MD, personally saw the patient today and spent greater than 30 minutes discharging this patient. Dorita Thompson MD [place] [address] MEDICAL SURGICAL [address] [facility] [address] Physical Exam Vital Signs: Temp: 97.9 ??F [...] tablet Take 1 tablet by mouth daily. Leopold-3 Fatty Acids (FISH OIL) 1200 MG capsule [...] to be seen, please call us at [phone]. We are located at: [address] [facility], [address]; [place] [address] INCISIONAL CARE: Replace the bandage over your [...] to discuss with the nurse or physician rehab assistant. # There is a surgeon SOLAR SALES REPRESENTATIVE AND ASSESSOR on weekday evenings and over the weekend [...] Take 1 tablet by mouth daily. 01/11/2024 Leopold-3 Fatty Acids (FISH OIL) 1200 MG capsule [...] Osorio PA-C - 05/28/2024 9:26 AM CDT [facility] General Surgery Progress Note Assessment and Plan: [...] not displayed. Barb Osorio PA-C Text page: [phone] 8 am to 4 pm After 4 pm, call * Dorita Thompson MD - 05/27/2024 7:52 PM CDT [facility] Medicine Progress Note - Hospitalist Service Date of Admission: 05/25/2024 Assessment & Plan Car Calvert is a 74 year old male with past medical history significant for interstitial lung disease, hypertension, hyperlipidemia, and obesity who presented to [facility] from outside hospital on 05/25/2024 with acute [...] Anticipated tomorrow Dorita Thompson MD Hospitalist Service [facility] Securely message with [employer] (more info) Text page via [facility] Paging/Directory Interval History No acute events overnight. [...] surg), Dr. Gama (GI). Dannie Simmons MD [facility] consultants Office: [phone] Interval History: No acute events overnight Na [...] awakens to voice, oriented, normal speech Data: [facility] Recent Labs Lab 05/27/24 0625 05/27/24 0100 [...] medications, labs and imaging. Dannie Simmons MD [facility] Consultants - Nephrology Office: [phone] * Dorita Thompson MD - 05/26/2024 4:03 PM CDT [facility] Medicine Progress Note - Hospitalist Service Date of Admission: 05/25/2024 Assessment & Plan Car Calvert is a 74 year old male with past medical history significant for interstitial lung disease, hypertension, hyperlipidemia, and obesity who presented to [facility] from outside hospital on 05/25/2024 with acute [...] on mIVF. Rechecking sodium on admission to [facility] and will continues fluids forgoal [...] 2-4 Days Dorita Thompson MD Hospitalist Service [facility] Securely message with [employer] (more info) Text page via [employer] Paging/Directory Interval History No acute events overnight. [...] Interventions Taken No adjustments needed Admission/Transfer from: [place] ED 2 RN skin assessment completed. Yes Significant findings include: None LDA added (if applicable)? Not Applicable Requested WOC Nurse Consult from MD? Not Applicable [facility] RN documented in this encounter H&P Notes * Sulaiman Wan MD - 05/25/2024 11:18 PM CDT [facility] History and Physical - Hospitalist Service Date of Admission: 05/25/2024 Assessment & Plan Car Calvert is a 74 year old male with past medical history significant for interstitial lung disease, hypertension, hyperlipidemia, and obesity who presented to [facility] from outside hospital on 05/25/2024 with acute [...] with GI that it could be performedat [facility] prior to patient being transferred. Will continue antibiotics overnightto make patient NPO with anticipation of procedure tomorrow. -GI consulted, appreciate recommendations -Likely ERCP tomorrow -NPO @ 0000 -zosyn 3.375mg Q6H IV -Pain control and antiemetics PRN Hyponatremia Na 123 at OSH. Started on mIVF. Rechecking sodium on admission to [facility] and will continues fluids forgoal [...] 2-4 Days Sulaiman Wan MD Hospitalist Service [facility] Securely message with [employer] ([employer] info) Text page via [facility] Paging/Directory Chief Complaint Abdominal pain History is obtained from the patient History of Present Illness Car Calvert is a 74 year old male with past medical history significant for interstitial lung disease, hypertension, hyperlipidemia, and obesity who presented to [facility] from outside hospital on 05/25/2024 with acute [...] of drink. He presented earlier today to [place] emergency department. Laboratory studies revealed a mild [...] physician reportedly discussed with general surgery at [facility], who stated that the patient should be transferred for ERCP as it could not be performed at that location. He was provided with Zosyn + fluids prior to transfer. Patient was subsequently transferred to [facility] where he is thus far been afebrile. [...] 74 year old male who presented to [place] ED two days ago with right upper [...] mL 0.1-1 mL Other Q1H PRN Shivam oNrris MD [Auto Hold] lidocaine 1 % 0.1-1 [...] 5:08 PM CDTAssociated Order(s): NEPHROLOGY IP CONSULT [facility] Nephrology Consultation Date of Admission: 05/25/2024 [...] (hospitalist), Dr. Gama (GI). Dannie Simmons MD [facility] Consultants - Nephrology [phone] Reason for Consult I was asked to [...] obstructing 3mm CBD stone. Transferred to [facility] for ERCP and further treatment. Given [...] Sig: Take 81 mg by mouth daily. Leopold-3 Fatty Acids (FISH OIL) 1200 MG capsule [...] 1.22* -- [facility] 124* -- 124* -- Phos@[facility](phos:4) CBC) Recent Labs Lab 05/26/24 0649 WBC [...] PROTEIN, UROBILINOGEN, NITRITE, LEUKEST Dannie Simmons MD [facility] Consultants - Nephrology [phone] * Jefferson Gama MD - 05/26/2024 9:11 AM CDTAssociated Order(s): GASTROENTEROLOGY IP CONSULT Images from the original note were not included. GASTROENTEROLOGY CONSULTATION Car Calvert [address] [facility] [id number] 74 year old male Admission Date/Time: 05/25/2024 Primary Care Provider: Dustin Victor Referring / Attending Physician: Dr. Wan We were asked to see the patient in consultation by Dr. Wan for evaluation of choledocholithiasis. HPI: Car Calvert is a 74 year old male with medical history of hypertension, hyperlipidemia, kidney stones, interstitial lung disease, who was transferred from [facility] with acute abdominal pain found [...] daily. 01/11/24 Yes Unknown, Entered By History Leopold-3 Fatty Acids (FISH OIL) 1200 MG capsule [...] ALT 208* AST 90* IMAGING / ENDOSCOPY [facility] per report. I am unable to view these currently. CONSULTATION ASSESSMENT AND PLAN: Car Calvert is a 74 year old with medical history of hypertension, hyperlipidemia, kidney stones, interstitial lung disease, who was transferred from [facility] with acute abdominal pain found to have MRCP evidence of cholelithiasis, and choledocholithiasis. 1. Choledocholithiasis: As evidenced on MRCP with a 3 mm stone in the CBD. He is currently afebrile. LFTs have mildly improved. He continues on antibiotics. Abdominal pain is improving. Plan for ERCPthis afternoon here at [facility]. General surgery consult for discussion of cholecystectomy [...] patient evaluation, reviewing documentation/ test results, and pit recorder. Chelita Flynn PA-C [facility] ( [facility]) M[facility]I note Patient seen and examined. [...] by surgery for cholecystectomy. Jefferson Gama MD [facility] 20 minutes spent documented in this encounter Miscellaneous Notes * Plan of Care - Blayne Montanez RN - 05/28/2024 6:17 AM CDT For vital signs and complete assessments, please see documentation flowsheets. [phone] Pertinent assessments: Pt A&Ox4. On RA. Afebrile. [...] shift note. Outcome: Progressing Flowsheets (Taken 05/27/2024 5296) Outcome Evaluation: Discharge pending. Plan of Care [...] Pertinent assessments: Assumed care of pt from [phone]. POD #1 from ERCP, POD #0 from [...] since arrival. Major Shift Events: [facility] at 1430 Treatment Plan: Trend and monitor [...] Mayen MD - 05/27/2024 12:37 PM CDT [facility] Brief Operative Note Pre-operative diagnosis: Cholecystitis [K81.9] [...] Mayen MD - 05/27/2024 10:41 AM CDT [facility] General Surgery Operative Note Pre-operative diagnosis: choledocholithiasis Post-operative diagnosis: same Procedure: laparoscopic cholecystectomy with modifer 22 - approximately 1 hour of additional time to complete the case due to a chronically inflamed, scarred, and contracted gallbladder Surgeon: Kenneth Mayen MD Care Worker(s): Barb Osorio PA-C The Physician Care Worker was medically necessary for their expertise in [...] documentation flowsheets. Pertinent assessments: Assumed care @ [phone]. POD #01 from ERCP. Pain controlled with oxycodone,given x 1. denies nausea and SOB. Afebrile, VSS. A&Ox4. Afebrile. On room air. IV fluids infusing. Tolerating clear liquids. Telemetry Major Shift Events: NPO midnight. Treatment Plan: NPO at [facility], cholecystectomy with Gen Surg, IV fluids, trend [...] to clear liquids. Treatment Plan: NPO at [facility], cholecystectomy with Gen Surg, IV fluids, trend [...] shift note. Outcome: Progressing Flowsheets (Taken 05/26/2024 5637) Outcome Evaluation: Probable cholecystectomy with Gen Surg [...] Fall Risk Recent Flowsheet Documentation Taken 05/26/2024 1641 by Yunior Canales RN Safety Promotion/Fall Prevention: activity supervised clutter free environment maintained increase visualization of patient lighting adjusted nonskid shoes/slippers when out of bed patient and family education room near nurse's station safety round/check completed supervised activity treat reversible contributory factors Intervention: Prevent Skin Injury Recent Flowsheet Documentation Taken 05/26/2024 1641 by Yunior Canales RN Body Position: position changed independently Intervention: Prevent and Manage VTE (Venous Thromboembolism) Risk Recent Flowsheet Documentation Taken 05/26/2024 1641 by Yunior Canales RN VTE Prevention/Management: SCDs [...] and CareEverywhere/SureScripts via in-person Changes made to [employer] medication list: Added: All Deleted: None Changed: None Allergies reviewed with patient and updates made in EHR: yes Medication History Completed By: Moses Carson RPH 05/26/2024 8:48 AM [employer] Med List Medication Sig Last Dose amLODIPine [...] Take 1 tablet by mouth daily. 05/23/2024 Leopold-3 Fatty Acids (FISH OIL) 1200 MG capsule [...] see documentation flowsheets. Pertinent assessments: Care assumed [id number]. A&O x4. Able to correctly answer questions [...] probably ERCP today. Tele runningST 130's per telescope maintenance. Pt also constantly pulling tele leads off [...] Recent Flowsheet Documentation Taken 05/26/202444 by Anne Hednerson RN Pain Management Interventions: declines Goal: Readiness [...] shift note. Outcome: Progressing Flowsheets (Taken 05/25/2024 4002) Outcome Evaluation: up to floor at 2130, [...] Atrial Rate 86 BPM RADIOLOG Y RESULTS SC Interval 184 ms RADIOLOG Y RESULTS QRS Duration 102 ms RADIOLO GY RESULTS QT 388 ms RADIOLOGY RESULTS QTc 464 ms RADIOLOGY RESULTS P [place] 44 degrees RADIOLOGY RESULTS R AXIS 20 degrees RADIOLOGY RESULTS T [place] 23 degrees RADIOLOGY RESULTS Interpretation ECG Sinus [...] Rios MD LAB - BLOOD ORDER MELYSSA [facility] [address] Lab (1st floor, no room number) [address] * (ABNORMAL) Sodium (05/28/2024 6:51 AM CDT) Sodium 131(L) 135 - 145 mmol/L 05/28/2024 7:27 AM CDT LABORATORY Blood BLOOD SPECIMEN / Unknown Venipuncture / Unknown 05/28/2024 6:51 AM CDT 05/28/2024 7:02 AM CDT Kenneth Mayen MD LAB - BLOOD ORDERABL ES Performing Organization Address City/[facility]/ZIP Co de Phone Number [facility] Lab [address] Lab (1st floor, no room number) [address] * (ABNORMAL) Comprehensive metabolic panel (05/28/2024 [...] - 5.2 g/dL 05/28/2024 7:27 AM CDT LABORATORY Bilirubin Total 0.7 <=1.2 mg/dL 05/28/2024 7:27 AM CDT LABORATORY Blood BLOOD SPECIMEN / Unknown Venipuncture / Unknown 05/28/2024 6:51 AM CDT 05/28/2024 7:02 AM CDT Dorita Thompson MD LAB - BLOOD ORDERABL ES LABORATORY [facility] Acute Care Lab [address] [facility] Lab (1st floor, no room number) [place] [address], [facility] * (ABNORMAL) CBC with platelets [...] Thompson MD LAB - BLOOD ORDERABL ES [facility] Lab [address] Lab (1st floor, no room number) [address] * (ABNORMAL) Sodium (05/27/2024 11:40 PM CDT) Sodium 129(L) 135 - 145 mmol/L 05/28/2024 12:02 AM CDT RH LABORATORY Blood BLOOD SPECIMEN / Unknown Venipuncture / Unknown 05/27/2024 11:40 PM CDT 05/27/2024 11:44 PM CDT Kenneth Mayen MD LAB - BLOOD ORDERABL ES [facility] [address] Lab (1st floor, no room number) [address] * (ABNORMAL) Sodium (05/27/2024 5:50 PM CDT) Sodium 125(L) 135 - 145 mmol/L 05/27/2024 6:19 PM CDT [facility] LABORATORY Blood STRUCTURE OF LEFT UPPER LIMB / Unknown Venipuncture / Unknown 05/27/2024 5:50 PM CDT 05/27/2024 5:54 PM CDT Kenneth Mayen MD LAB - BLOOD ORDERABL ES Performing Organization Address [facility] Co de Phone Number [facility] [address] Lab (1st floor, no room number) [address] * (ABNORMAL) Sodium (05/27/2024 1:50 PM CDT) Sodium 123(L) 135 - 145 mmol/L 05/27/2024 2:32 PM CDT LABORATORY Blood STRUCTURE OF RIGHT UPPER LIMB / Unknown Venipuncture / Unknown 05/27/2024 1:50 PM CDT 05/27/2024 1:59 PM CDT Kenneth Mayen MD LAB - BLOOD ORDERABL ES Performing Organization Address [facility] de Phone Number [facility] [address] Lab (1st floor, no room number) [address] * Surgical Pathology Exam (05/27/2024 12:26 PM CDT) Case Report Surgical Pathology Report ? Case: [id number] ? Authorizing Provider: ??Kenneth Mayen MD ? Collected: ? 05/27/2024 12:26 PM ? Ordering Location: ? [facility] ?? Received: ?05/27/2024 12:51 PM ? Main [...] possible mass or nodularities are grossly identified. Complex Director sections of the gallbladder to include the cystic duct margin (inked black) are submitted in 1 cassette. (BRADFORD Perdomo (ASCP) 05/27/2024 1:27 PM 05/30/2024 1:55 PM CDT LABORATORY Microscopic Description Microscopic examination was performed. 05/30/2024 1:55 PM CDT LABORATORY Performing Labs The technical component of this testing was completed at [facility]. Stain controls for all stains resulted within this report have been reviewed and show appropriate reactivity. 05/30/2024 1:55 PM CDT LABORATORY Case Images 05/30/2024 1:55 PM CDT LABORATORY Tissue GALLBLADDER PART / Unknown 05/27/2024 12:26 PM CDT 05/27/2024 12:51 PM CDT Kenneth Mayen MD LAB - BEAKER AP [facility] [address] Lab (1st floor, no room number) [address] [place] [address] * Magnesium (05/27/2024 6:25 AM CDT) Pathologist [facility] Magnesium 1.9 1.7 - 2.3 mg/dL 05/27/2024 8:21 AM CDT LABORATORY Blood STRUCTURE OF RIGHT UPPER LIMB / Unknown Venipuncture / Unknown 05/27/2024 6:25 AM CDT 05/27/2024 6:38 AM CDT Dorita Thompson MD LAB - BLOOD ORDERABL ES [facility] Lab [address] Lab (1st floor, no room number) [place] [id number], [facility] * (ABNORMAL) Sodium (05/27/2024 6:25 AM CDT) Sodium 123(L) 135 - 145 mmol/L 05/27/2024 7:06 AM CDT LABORATORY Blood STRUCTURE OF RIGHT UPPER LIMB / Unknown Venipuncture / Unknown 05/27/2024 6:25 AM CDT 05/27/2024 6:38 AM CDT Kenneth Mayen MD LAB - BLOOD ORDERABL ES LABORATORY [facility] Lab [address] Lab (1st floor, no room number) [place] [address] * (ABNORMAL) Comprehensive metabolic panel (05/27/2024 6:25 [...] Thompson MD LAB - BLOOD ORDERABL ES [facility] Lab [address] Lab (1st floor, no room number) [address] * (ABNORMAL) Lipase (05/27/2024 6:25 AM CDT) Pathologist [facility] Lipase 63(H) 13 - 60 U/L 05/27/2024 7:06 AM CDT RH LABORATORY Blood STRUCTURE OF RIGHT UPPER LIMB / Unknown Venipuncture / Unknown 05/27/2024 6:25 AM CDT 05/27/2024 6:38 AM CDT Dorita Thompson MD LAB - BLOOD ORDERABL ES [facility] [address] Lab (1st floor, no room number) [place] [phone] [place] [address] * (ABNORMAL) CBC with platelets (05/27/2024 6:25 [...] - BLOOD ORDERABL ES Performing Organization Address City/State/[facility] Co de Phone Number RH LABORATORY [facility] Acute Care Lab [address] [facility] Lab (1st floor, no room number) [place] [address] * (ABNORMAL) Sodium (05/27/2024 1:00 AM CDT) Sodium 127(L) 135 - 145 mmol/L 05/27/2024 1:32 AM CDT RH LABORATORY Blood BLOOD SPECIMEN / Unknown Venipuncture / Unknown 05/27/2024 1:00 AM CDT 05/27/2024 1:04 AM CDT Kenneth Mayen MD LAB - BLOOD ORDERABL ES LABORATORY [facility] Lab [address] Lab (1st floor, no room number) [place] [address] * (ABNORMAL) Sodium (05/26/2024 5:43 PM CDT) Sodium 123(L) 135 - 145 mmol/L 05/26/2024 6:23 PM CDT RH LABORATORY Blood STRUCTURE OF LEFT UPPER LIMB / Unknown Venipuncture / Unknown 05/26/2024 5:43 PM CDT 05/26/2024 5:59 PM CDT Kenneth Mayen MD LAB - BLOOD ORDERABL ES Performing Organization Address [facility]/ZIP Co de Phone Number LABORATORY [facility] Lab [address] Lab (1st floor, no room number) [place] [address] * Osmolality urine (05/26/2024 5:17 PM CDT) [...] LAB - URINE ORDERABL ES UU LABORATORY [facility] [address] [facility], [address] [place] [address], [facility] * Sodium random urine (05/26/2024 [...] MD LAB - URINE ORDERABL ES LABORATORY [facility] Lab [address] [facility] Lab (1st floor, no room number) [place] [address] * XR ERCP (05/26/2024 2:56 PM CDT) Narrative [facility] - 05/26/2024 2:58 PM CDT This exam was marked as non-reportable because it will not be read by a radiologist or a [facility] non-radiologist provider. Jefferson Gama MD IMG DIAGNOSTIC I MAGING ORDERABLES [facility] * ENDOSCOPIC RETROGRADE CHOLANGIOPANCREATOGRAPHY (05/26/2024 1:39 PM CDT) ERCP [facility] Patient Name: Car Abraham Calvert ? Procedure Date: 05/26/2024 1:39 PM [...] and ?oxygen saturations were monitored continuously. The ?[facility] II Duodenovideoscope (ERCP), Model # ?[id number]-[id number], [facility] # [id number] was introduced ?through the mouth, and used to inject contrast into ?and used to inject contrast into the bile duct. The ?ERCP was accomplished without difficulty. The ?patient tolerated the procedure well. ? Findings: ? The asbestos handler film was normal. The esophagus was successfully [...] Note Initiated On: 05/26/2024 1:39 PM MRN: ?[id number] Procedure Date: ? 05/26/2024 1:39:55 PM Total [...] 05/26/2024 12:33 PM CDT Seth WHITTAKER - [facility] POCT LABORATORY POC [facility] Lab [address] [facility] Lab (1st floor, no room number) [place] [address], [facility] * (ABNORMAL) Potassium (05/26/2024 12:04 PM CDT) Potassium 3.3(L) 3.4 - 5.3 mmol/L 05/26/2024 12:42 PM CDT [facility] LABORATORY Blood STRUCTURE OF RIGHT HAND / Unknown Venipuncture / Unknown 05/26/2024 12:04 PM CDT 05/26/2024 12:19 PM CDT Dorita Thompson MD LAB - BLOOD ORDERABL ES [facility] [address] Lab (1st floor, no room number) [address] * (ABNORMAL) Sodium (05/26/2024 12:04 PM CDT) Sodium 122(L) 135 - 145 mmol/L 05/26/2024 12:45 PM CDT [facility] LABORATORY Blood STRUCTURE OF RIGHT HAND / Unknown Venipuncture / Unknown 05/26/2024 12:04 PM CDT 05/26/2024 12:19 PM CDT Kenneth Mayen MD LAB - BLOOD ORDERABL ES Performing Organization Address [facility]/ZIP Co de Phone Number [facility] [address] Lab (1st floor, no room number) [address] * INR (05/26/2024 9:47 AM CDT) INR 1.10 0.85 - 1.15 05/26/2024 10:12 AM CDT RH LABORATORY Blood STRUCTURE OF RIGHT HAND / Unknown Venipuncture / Unknown 05/26/2024 9:47 AM CDT 05/26/2024 9:56 AM CDT Asuncion Flynn PA-C LAB - BLOOD ORDERABLES [facility] Lab [address] Lab (1st floor, no room number) [address] [place] [address] * TSH with free T4 reflex (05/26/2024 6:49 AM CDT) Pathologist [facility] TSH 1.27 0.30 - 4.20 uIU/mL 05/26/2024 12:29 PM CDT [facility] LABORATORY Blood STRUCTURE OF RIGHT HAND / Unknown Venipuncture / Unknown 05/26/2024 6:49 AM CDT 05/26/2024 6:59 AM CDT Dorita Thompson MD LAB - BLOOD ORDERABL ES [facility] [address] Lab (1st floor, no room number) [address] [place] [address] * (ABNORMAL) Magnesium (05/26/2024 6:49 AM CDT) [facility] Magnesium 1.5(L) 1.7 - 2.3 mg/dL 05/26/2024 8:55 AM CDT RH LABORATORY Blood STRUCTURE OF RIGHT HAND / Unknown Venipuncture / Unknown 05/26/2024 6:49 AM CDT 05/26/2024 6:59 AM CDT Dorita Thompson MD LAB - BLOOD ORDERABL ES Performing Organization Address City/[facility]/ZIP Co de Phone Number [facility] Lab [address] Lab (1st floor, no room number) [address] * (ABNORMAL) CBC with platelets (05/26/2024 6:49 AM CDT) Pathologist [facility] WBC Count 9.7 4.0 - 11.0 10e3/uL [...] MD LAB - BLOOD ORDERABL ES LABORATORY [facility] Lab [address] Lab (1st floor, no room number) [place] [address]RUST * (ABNORMAL) Comprehensive metabolic panel (05/26/2024 6:49 [...] MD LAB - BLOOD ORDERABL ES LABORATORY [facility] Lab [address] [facility] (1st floor, no room number) [place] [address], [facility] * (ABNORMAL) Sodium (05/26/2024 12:23 AM CDT) Sodium 126(L) 135 - 145 mmol/L 05/26/2024 1:05 AM CDT [facility] Blood STRUCTURE OF FINGER OF RIGHT HAND / Unknown Capillary / Unknown 05/26/2024 12:23 AM CDT 05/26/2024 12:46 AM CDT Sulaiman Wan MD LAB - BLOOD ORDERABL ES [facility] Acute Care Lab [address] [facility] Lab (1st floor, no room number) [place] [address], [facility] documented in this encounter Visit [...] BP greater than 180 mmHg, Starting on 10/2/24 at 2306 metoprolol tartrate (LOPRESSOR) tablet 25 [...] be crushed and given via enteral route. 205 ($Given - Provider: Yunior Canales, YASEMIN) 0815 (Auto Hold - Provider: Orders Generic Provider - Reason: Transfer to a procedural area)0900 (Automatically Held - Provider: Orders Generic Provider)1430 (Unhold - Provider: Orders Generic Provider)2224 ($Given - Provider: Yunior Canales, RN) 0820 ($Given - Provider: Stone Hall, RN) pantoprazole (PROTONIX) EC tablet 40 mg 40 mg, Oral, EVERY MORNING BEFORE BREAKFAST, First dose on 05/27/24 at 1530, DO NOT CRUSH. 1603 ($Given - Provider: Yunior Canales, YASEMIN) 0820 ($Given - Provider: Stone Hall, RN) [...] Stone Hall, RN)2225 ($Given - Provider: Yunior Canales, YASEMIN)2330 (Canceled Entry - Provider: Yunior Canales, YASEMIN) 0822 ($Given - Provider: Stone Hall, YASEMIN) tamsulosin (FLOMAX) capsule 0.4 mg 0.4 mg, Oral, DAILY, First dose on Thu05/26/24 at 1630, Administer 30 minutes after the same meal each day. Capsules should be swallowed whole; do not crush chew or open. 1641 ($Given - Provider: Yunior Canales, RN) 0815 (Auto Hold - Provider: Orders [...] ($New Bag - Provider: Concepcion Rosado APRN EDGE GRINDER MACHINE)1447 (Anesthesia Volume Adjustment - Provider: Jaja Hector APRN [employer]) sodium chloride 0.9 % infusion (CANCELED) at [...] 0559 1716 (Rate/Dose Verify - Provider: Yunior Canalse, YASEMIN) 0602 (Stopped - Provider: Tristan Bourgeois [...] with non-pharmacological and non-opioid interventions, Starting on 05/25/24 at 2306, May use concomitant with non-opioid [...] stools. documented in this encounter Care Teams Seamless Hosiery Knitter Relationship Specialty Start Date End Date Dustin Victor MD [facility] [address] [place] [address] PCP - General Family Medicine 04/01/23 documented as of this encounter
--- OUTSIDE RECORDS SUMMARY | 2024-06-03 09:30 | XMS_ITS | Encounter Summary ---
Author Organization [place] Address [facility] [place] [address] Care Team Providers Care Fence Laborer Name Role Phone Dustin Victor MD Primary Care Provider [phone] Reason for Visit * Auth/Cert (Routine) Specialty Diagnoses / Procedures Referred By Contac t Referred To Contact Med Surg Diagnoses Choledocolithiasis and cholecysitis Choledocholithiasis with obstruction [facility] [address] [place] [address] Referral ID Status Reason Start Date Expiration Date Visits Re quested Visits Authorized [id number] 1 1 Encounter Details Date Type Department Care Team (Late st Contact Info) Description 05/26/2024 2:10 PM CDT Anesthesia Event [facility] PeriOp Services [address] [place] [address] Car Underwood MD [facility] [place] [id number] [place] [address] Anesthesia, MD Devendra [facility] [place] [id number] [place] [address] Anesthesia Record Procedure Summary Procedure Name Responsible Anesthesiologist Anesthesia Start Time Anesthesia Stop Time ENDOSCOPIC RETROGRADE CHOLANGIOPANCREATOGRAPH Y, sphincterotomy and balloon extraction (Mouth) Car Underwood MD 05/26/24 1410 05/26/24 1456 Events Date Time Event Comment 05/26/2024 1330 1400 [facility] RADIOLOGY Ready for Procedure 1410 An Start Anesthesia [...] recorded are pre- induction. Concepcion Rosado APRN CHIEF RADIOLOGY 1415 Quick Note Monitors, alarm s on. Pt positioned to comfort. Oxygen per face mask. Sedation as listed. 1415 MD Present 1421 Anesthesia Ready for Procedu re 1432 MD Present 1441 MD Present 1451 an stop data 1456 An Stop Electronically signed by Jaja Hector APRN CHIE[facility] RADIOLOGY on May 26, 2024 2:56 PM 1456 [...] incision 05/26/24 1424 by Evelyn Brandt RN Peripheral IV 05/25/24; 2242 (Unknown what time- placed by different facility.); Anterior, Right; Upper forearm 05/25/24 2242 by Stone Hall, YASEMIN 05/28/24 0954 by Stone Hall, RN documented [...] in an abandoned building, in an overnight fdc, or couch-surfing.) Yes 05/25/2024 Are you worried [...] 5:47 PM * Anesthesia Preprocedure Evaluation - Metropolitan Sabillon MD - 05/26/2024 1:30 PM CDT Anesthesia [...] and realistic alternatives discussed. Questions answered and patient/sales donor recruitment representative(s) expressed understanding. - Discussed: - Discussed [...] CDT documented in this encounter Care Teams Fence Laborer Relationship Specialty Start Date End Date Dustin Victor MD [facility] [address] [place] [address] PCP - General Family Medicine 04/01/23 documented as of this encounter
--- OUTSIDE RECORDS SUMMARY | 2024-06-03 09:30 | XMS_ITS | Encounter Summary ---
Author Organization [place] Address [facility] [place] [address] Care Team Providers Care Solderer Name Role Phone Dustin Victor MD Primary Care Provider [phone] Reason for Visit * Auth/Cert (Routine) Specialty Diagnoses / Procedures Referred By Contbenja t Referred To Contact Med Surg Diagnoses Choledocolithiasis and cholecysitis Choledocholithiasis with obstruction [facility] [address] [place] [address] Referral ID Status Reason Start Date Expiration Date Visits Re quested Visits Authorized [id number] 1 1 Encounter Details Date Type Department Care Team (Late st Contact Info) Description 05/27/2024 10:21 AM CDT Anesthesia Event [facility] PeriOp Services [address] [place] [address] Leny Lyon MD [facility] [place] [address] [place] [address] Concepcion Rosado APRN CRNA [facility] [address] [place] [address] Anesthesia Record Procedure Summary Procedure Name Responsible Anesthesiologist Anesthesia Start Time Anesthesia Stop Time Davinci Robot-Assisted Laparoscopic Cholecystectomy (Abdomen) Leny Lyon MD 05/27/24 1021 05/27/24 1248 Events Date Time Event Comment 05/27/2024 1006 MAC ARTIST Ready for Procedure 1021 An Start Anesthesia [...] recorded are pre- induction. Concepcion Rosado APRN MAC ARTIST 1027 An Induction 1027 MD Present 1030 An Intubation 1033 Anesthesia Ready for Procedu re 1033 MD Present 1137 MD Present 1230 MD Present 1241 AN Extubation All extubation criteria met prior to removal. 1242 an stop data 1248 An Stop Electronically signed by Concepcion Rosado APRN MAC ARTIST on May 27, 2024 12:47 PM Meds [...] OR Notes * Anesthesia Postprocedure Evaluation - Leny Lyon MD - 05/27/2024 1:15 PM CDT [...] Start/Stop Times: 05/27/2024 10:30 AM Staff - MAC ARTIST: Concepcion Rosado APRN MAC ARTIST Performed By: MAC ARTIST Consent for Airway Urgency: elective Indications and [...] and realistic alternatives discussed. Questions answered and patient/uniforms sales representative(s) expressed understanding. - Discussed: - Discussed [...] Scheduled Procedures Name Priority Associated Diagnoses Date/Ti ca CHOLECYSTECTOMY, LAPAROSCOPIC Calculus of bile duct with [...] Times: 05/27/2024 10:30 AM Staff - ? MAC ARTIST: Concepcion Rosado APRN CRNA ? Performed By: MAC ARTIST Consent for Airway ? Urgency: elective Indications [...] Time: 05/27/2024 10:30 AM Leny Lyon MD [facility] documented in this encounter Visit Diagnoses [...] mg documented in this encounter Care Teams Solderer Relationship Specialty Start Date End Date Dustin Victor MD [facility] [address] [place] [address] PCP - General Family Medicine 04/01/23 documented as of this encounter
== END 2024-06-02 08:53 | disposition home or self-care (01) ==
LOC: NFLDREF 06-03 09:24
PROVIDERS: PCP Family Medicine; Referring Provider Family Medicine; Visit Provider Family Medicine
DX: K80.50 Calculus of bile duct without cholangitis or cholecystitis without obstruction (principal)
CPT/HCPCS: 80053

== ENCOUNTER 2025-01-19 10:06 | Outpatient (CLI) | payer MEDICARE, OTHER, SELFPAY | END 2025-01-19 10:07 | disposition home or self-care (01) | PROVIDERS: PCP Family Medicine; Visit Provider Family Medicine | DX: D64.9 Anemia, unspecified (principal); E78.00 Pure hypercholesterolemia, unspecified; I10 Essential (primary) hypertension; E11.9 Type 2 diabetes mellitus without complications; Z12.5 Encounter for screening for malignant neoplasm of prostate | CPT/HCPCS: 80053; 80061; 82043; 82570; 82728; 83540; G0103 ==

== ENCOUNTER 2025-02-22 07:55 | Outpatient (CLI) | payer MEDICARE, OTHER, SELFPAY | END 2025-02-22 07:56 | disposition home or self-care (01) | LOC: NFLDREF 02-25 17:55 | PROVIDERS: PCP Family Medicine; Referring Provider Family Medicine; Visit Provider Family Medicine | DX: I10 Essential (primary) hypertension (principal); E78.00 Pure hypercholesterolemia, unspecified | CPT/HCPCS: 80048; 80061 ==

== ENCOUNTER 2025-03-27 07:57 | Outpatient (CLI) | payer MEDICARE, OTHER, SELFPAY | END 2025-03-27 07:58 | disposition home or self-care (01) | LOC: NFLDREF 03-29 15:07 | PROVIDERS: PCP Family Medicine; Referring Provider Family Medicine; Visit Provider Family Medicine | DX: E78.00 Pure hypercholesterolemia, unspecified (principal); I10 Essential (primary) hypertension | CPT/HCPCS: 80053 ==

== ENCOUNTER 2025-05-11 08:28 | Outpatient (CLI) | payer MEDICARE, OTHER, SELFPAY | END 2025-05-11 08:29 | disposition home or self-care (01) | PROVIDERS: PCP Family Medicine; Referring Provider Family Medicine; Visit Provider Family Medicine | DX: E78.00 Pure hypercholesterolemia, unspecified (principal); I10 Essential (primary) hypertension | CPT/HCPCS: 80048; 80061 ==

== ENCOUNTER 2025-05-31 08:57 | Outpatient (CLI) | payer MEDICARE, OTHER, SELFPAY | END 2025-05-31 08:58 | disposition home or self-care (01) | LOC: NFLDREF 06-02 16:06 | PROVIDERS: PCP Family Medicine; Referring Provider Family Medicine; Visit Provider Family Medicine | DX: E78.00 Pure hypercholesterolemia, unspecified (principal); I10 Essential (primary) hypertension | CPT/HCPCS: 80048; 80061 ==